=== PATIENT | female | born 1970 | race Two or more races ===

== ENCOUNTER 2024-01-05 10:05 | Outpatient (POV) | payer MEDICAID, SELFPAY ==
[2024-01-05 10:30] VITALS: BP 155/94; PULSE 64; RESP 18; O2SAT 100; BMI 20.2
--- NOTE | 2024-01-05 13:14 | EXP.PAIN.OV ---
HPI Data of Consult Patient: new to practice Consult date: 01/05/24 Requesting Physician: Michelle Armas APRN Primary Care Provider: Referral Provider, MD Consult Narrative Reason for consult: Low back pain, bilateral hip pain, abdominal pain History of present illness: Ms. Ortiz is a 53 year old female who presents today as a new patient. She is a referral from Dr. Tripp Núñez's office. Today she rates her pain a 5 out of 10. Patient states she does have pain throughout her body however does states she has a lot of low back and hip pain as well as abdominal pain. Patient states that earlier this year around June she was diagnosed with cancer. Patient states that it is blood cancer and that it has progressed since. Patient states ultimately that she initially noticed that she was having more and more abdominal swelling and then ended up going to the doctor to see that her spleen was also enlarged and they diagnosed her with leukemia. Patient did live in [place] and they had been giving her oxycodone 5 mg daily and it would help some. Patient does state that her pain is a throbbing intermittent sensation that does interfere with her ability perform activities of daily living such as cooking and cleaning. Patient does state that it also affects her appetite due to the pain. Patient does state that she is interested in any options we can provide. Patient states that although she does not have a drug history she feels like she has addictive tendencies and is trying to avoid any type of addiction whether to opioid medications or any other medications or interventions. Patient states that a lot of her issues is also that the pain medications seem to really interact with her leukemia medication and feels like this aggravates her pain symptoms. Patient has tried and failed oral medications, heat and ice and topicals. Her Sharif has been reviewed and is appropriate. CC: Michelle Armas APRN [facility] Disclaimer: The information contained in this section may have been updated after the patient was seen, as this information can be updated by other users. Medical History (Updated 01/05/24 @ 13:18 by Michelle Armas APRN) Anxiety Chronic pain Heartburn Chronic myeloid leukemia Surgical History History of skin graft History of tubal ligation Social History (Updated 01/05/24 @ 10:30 by Candie Mariza Nilo, RN) Smoking Status: Heavy tobacco smoker years smoked: 48 quit status: considering quitting alcohol intake: never counseling given: No substance use type: denies use current occupational status: other Travel in the last 8 weeks: None Review of Systems Review of Systems Review of systems:: pertinent systems reviewed and negative unless documented below Review of systems (narrative): Review of Systems: General: No recent weight changes, no fever, no sleep disturbances Respiratory: No cough, no shortness of air, no recurring pulmonary infections Cardiovascular/peripheral vascular: No chest pain, no palpitations, no edema, no shortness of breath Gastrointestinal: No new onset incontinence, normal bowel movements reported Genitourinary: No new onset incontinence Musculoskeletal: Low back pain, hip pain, abdominal pain, generalized pain Psychiatric: [Normal mood/affect] Neurological: [Denies weakness in extremities], [denies balance issues] Meds Home Medications and Allergies Home Medications ?Medication ?Instructions ?Recorded ?Confirmed ?Type bupropion HCl 75 mg tablet 75 mg PO TID 11/22/23 01/05/24 History citalopram 20 mg tablet 20 mg PO DAILY 11/22/23 01/05/24 History famotidine 10 mg tablet 10 mg PO BID 11/22/23 01/05/24 History hydrocortisone 1 % topical cream 1 applic topical TID PRN eyes 11/22/23 01/05/24 History nilotinib 150 mg capsule (Tasigna) 300 mg PO Q12H 11/22/23 01/05/24 History ondansetron HCl 4 mg tablet 4 mg PO BID 11/22/23 01/05/24 History propylene glycol 1 %-glycerin 0.3 1 drp ophthalmic (eye) BID PRN eyes 11/22/23 01/05/24 History % eye drops (Artificial Tears (glycerin-peg)) nicotine 21 mg/24 hr daily 1 patch transdermal DAILY #28 ea 12/29/23 01/05/24 Rx transdermal patch New Prescriptions to Start Prescriptions: Allergies Allergy/AdvReac Type Severity Reaction Status Date / Time No Known Allergies Allergy Verified 11/22/23 11:11 Objective Vital signs: Pulse Resp BP Pulse Ox O2 Del Method 64 18 155/94 H 100 Room Air 01/05/24 10:30 01/05/24 10:30 01/05/24 10:30 01/05/24 10:30 01/05/24 10:30 Narrative: Physical Exam: General: Alert and oriented x3, no acute distress, pleasant and cooperative Lungs: Respirations even and unlabored, symmetrical chest expansion Eyes: PERRL Musculoskeletal: Flexion and extension of lumbar [spine] somewhat guarded secondary to pain, [antalgic gait noted] point tenderness along bilateral SIs with positive bilateral Kely's, Jose's, Gaenslen's, compression and distraction exam Neurological: Speech clear, no gross sensory deficit Assessment and Plan *Assessment and plan (1) Bilateral sacroiliitis: Status: Acute Category: Medical Code(s): M46.1 - Sacroiliitis, not elsewhere classified (2) Low back pain: Status: Acute Category: Medical Code(s): M54.50 - Low back pain, unspecified (3) Abdominal pain: Status: Acute Category: Medical Code(s): R10.9 - Unspecified abdominal pain (4) Chronic myeloid leukemia: Status: Acute Category: Medical Code(s): C92.10 - Chronic myeloid leukemia, BCR/ABL-positive, not having achieved remission Plan Patient did have limited range of motion of her lumbar spine with point tenderness across her bilateral SIs and positive bilateral Kely's, Jose's, Gaenslen's, compression and distraction exam. I did discuss with the patient that I do believe she would benefit from bilateral SI injections. Risk and benefits were discussed with patient and she would like to proceed forward with this plan of care. Patient has tried and failed conservative therapy including continued at home stretching exercise for longer than 12 weeks. I did also discuss at length with the patient that we can start her out on some oral pain medications. Patient did state prior to the oxycodone that she had not been tried on any other medications including [place] or Percocet. I did discuss with the patient that we will try [place] 5 mg twice a day and see how she does with this medication initially. Patient was also counseled that she may be a beneficial candidate of a intrathecal pain pump trial in the future. Risk and benefits and educational handouts were given during today's visit. We will follow-up with this at future visits. Patient will be scheduled for bilateral SI injections under fluoroscopy. Risks and benefits of the medication have been explained in detail to the patient. The patient does understand the risk of dependence on the medication when given over a prolonged period. Patient has been advised of risks of oversedation with the prescribed medication. Narcan has been offered to the paitent in the event of oversedation. Patient has been advised that a family member should also be educated regarding administration of Narcan. The patient has been advised to consult with his/her primary care provider and pharmacist regarding drug-drug interaction of medications currently prescribed. Patient has been prescribed a controlled substance after being counseled on the medication, medication safety, and possible side effects. Opioid contract was reviewed and signed by the patient, and that they have agreed to all of the terms set forth by our compliance program. Patient has been instructed to contact the clinic with any concerns before the next appointment. Dr. Ortega has reviewed this note and agrees with this plan of care. This note was dictated using voice recognition software and make contain errors or omissions. All injections are used with Lidocaine or Bupivacaine and Depo Medrol.
== END 2024-01-05 23:59 | disposition home or self-care (01) ==
PROVIDERS: Visit Provider Nurse Practitioner Family
DX: M46.1 Sacroiliitis, not elsewhere classified (principal); M54.50 Low back pain, unspecified; R10.9 Unspecified abdominal pain; C92.10 Chronic myeloid leukemia, BCR/ABL-positive, not having achieved remission; Z73.89 Other problems related to life management difficulty
CPT/HCPCS: 99202; G0463

== ENCOUNTER 2024-01-13 15:04 | Outpatient (CLI) | payer MEDICAID, SELFPAY ==
[2024-01-13 15:56] LABS: Basophils # 0.1 K/mm3 (0-0.2); Basophils % 1.2 % (0.1-2.0); Eosinophils # 0.1 K/mm3 (0.0-0.4); Eosinophils % 2.1 % (0.1-12.0); Hematocrit 43.3 % (37.0-47.0); Hemoglobin 14.7 g/dL (12.2-16.2); Lymphocytes # 2.1 K/mm3 (0.7-4.5); Lymphocytes % 36.3 % (10-50); Mean Corpuscular HGB Conc 34.1 g/dL (31.8-35.4); Mean Corpuscular Hemoglobin 28.3 pg (27.0-31.2); Mean Platelet Volume 9.3 fl (7.4-10.4); Monocytes # 0.2 K/mm3 (0.1-1.0); Monocytes % 3.7 % (1.7-9.3); Neutrophils # 3.2 K/mm3 (1.8-7.8); Neutrophils % 56.7 % (37.0-80.0); Platelet Count 133 K/mm3 (142-424); Red Blood Count 5.21 M/mm3 (4.20-5.40); Red Cell Distribution Width 16.3 % (11.5-17.5); White Blood Count 5.7 K/mm3 (4.8-10.8)
[2024-01-13 16:06] LABS: Alanine Aminotransferase 36 U/L (12-78); Alkaline Phosphatase 90 U/L (38-126); Aspartate Amino Transferase 31 U/L (14-36); Bilirubin,Total 1.1 mg/dl (0.2-1.3); Blood Urea Nitrogen 13 mg/dl (7-17); Calcium 9.2 mg/dl (8.4-10.2); Chloride 110 mmol/L (98-107); Estimated Glomerular Filt Rate 76 ml/min (>60); GFR (African American) 92 ML/MIN (>60); Glucose 107 mg/dl (74-100); Potassium 3.5 mmoL/L (3.5-5.1); Sodium 141 mmol/L (136-145); Total Protein,Serum 6.9 g/dl (6.3-8.2)
[2024-01-13 16:07] LABS: Albumin Level 4.4 g/dl (3.5-5.0); Albumin/Globulin Ratio 1.8 (1.1-1.8); Anion Gap 10.5 mEq/L (5-15); Carbon Dioxide 24 mmol/L (22.0-30.0); Globulin 2.5 g/dL (1.3-3.2)
[2024-01-21 16:09] LABS: Interpretation: Positive (.); e13a2 (b2a2) transcript 22.4808 % (.); e1a2 transcript <0.0032 % % (.)
[2024-02-15 15:37] LABS: PDF: SCANNED IMAGE
== END 2024-01-13 23:59 | disposition home or self-care (01) ==
LOC: LAB 15:07
PROVIDERS: PCP Family Medicine; Visit Provider Internal Medicine Medical Oncology
DX: C92.10 Chronic myeloid leukemia, BCR/ABL-positive, not having achieved remission (principal)
CPT/HCPCS: 36415; 80053; 81206; 85025

== ENCOUNTER 2024-02-06 12:18 | Outpatient (CLI) | payer MEDICAID, SELFPAY ==
[2024-02-16 13:42] LABS: Miscellaneous Test SCANNED IMAGE
== END 2024-02-06 23:59 | disposition home or self-care (01) ==
LOC: LAB 12:19
PROVIDERS: PCP Family Medicine; Visit Provider Internal Medicine Medical Oncology
DX: C92.10 Chronic myeloid leukemia, BCR/ABL-positive, not having achieved remission (principal)
CPT/HCPCS: 36415

== ENCOUNTER 2024-02-13 07:26 | Outpatient (CLI) | payer MEDICAID, SELFPAY ==
[2024-02-13] VITALS (13 sets, daily range): BP systolic 119–139; BP diastolic 62–92; PULSE 59–83; RESP 18; TEMP 36.6; O2SAT 95–100; BMI 20.9
--- NOTE | 2024-02-13 07:27 | CT_ITS ---
FINAL REPORT CLINICAL HISTORY: BONE MARROW BX MEDS: 3 VERSED AND 50 FENTANYL FINDINGS: CT GUIDED BONE MARROW ASPIRATION AND CORE BIOPSY. HISTORY: Chronic myelogenous leukemia ATTENDING PHYSICIAN: Dr. Lyons PHYSICIAN ALUMINUM MOLDING MACHINE OPERATOR: Skyler Hogue PA-C PROCEDURE: After informed consent was obtained and a timeout was performed, the patient was prepped and draped in usual sterile fashion over the left pelvis. Utilizing local anesthesia and sterile technique with a coaxial drill system, access to left iliac bone was obtained under direct CT guidance. Aspirate was obtained. In addition, a large core of marrow was obtained. The patient received moderate procedural sedation. The patient tolerated the procedure well and left the department in good condition. PROCEDURAL SEDATION: 3 mg of IV Versed and 50 mcg of Fentanyl were administered. Continuous vital sign monitoring was used. An RN was present during the sedation process. Overall sedation time was 15 minutes. IMPRESSION: Status post CT guided bone marrow aspiration and core biopsy as above. Films reviewed , interpreted and dictated by Dr. Lyons. Transcribed by Skyler Hogue PA-C. Reviewed, Interpreted and Dictated by Power Lyons III, MD Transcribed by SALVADOR Magaña Authenticated and [facility]
[2024-02-13 08:08] LABS: Basophils # 0.1 K/mm3 (0-0.2); Basophils % 1.8 % (0.1-2.0); Eosinophils # 0.1 K/mm3 (0.0-0.4); Eosinophils % 2.4 % (0.1-12.0); Hematocrit 44.8 % (37.0-47.0); Hemoglobin 15.3 g/dL (12.2-16.2); Lymphocytes # 1.6 K/mm3 (0.7-4.5); Lymphocytes % 38.2 % (10-50); Mean Corpuscular HGB Conc 34.1 g/dL (31.8-35.4); Mean Corpuscular Hemoglobin 28.1 pg (27.0-31.2); Mean Corpuscular Volume 82.5 fl (81-99); Mean Platelet Volume 8.9 fl (7.4-10.4); Monocytes # 0.1 K/mm3 (0.1-1.0); Monocytes % 2.1 % (1.7-9.3); Neutrophils # 2.4 K/mm3 (1.8-7.8); Neutrophils % 55.6 % (37.0-80.0); Platelet Count 122 K/mm3 (142-424); Red Blood Count 5.42 M/mm3 (4.20-5.40); Red Cell Distribution Width 16.9 % (11.5-17.5); White Blood Count 4.3 K/mm3 (4.8-10.8)
[2024-02-13] MEDS: LACTATED RINGERS 1000ML 1,000 ML 25 ML IV (08:20)
[2024-02-13 08:33] LABS: Activated Partial Thrombo Time 27.5 seconds (22.8-30.6); INR 0.87 (0.9-1.1); Prothrombin Time 9.9 seconds (10.1-12.5)
[2024-02-13] MEDS: HEPARIN SODIUM 5,000 UNIT/ML VIAL 5000 UNIT (09:15)
[2024-02-13] MEDS: LIDOCAINE 1% 20ML MDV 20 ML (09:15)
== END 2024-02-13 23:59 | disposition home or self-care (01) ==
LOC: RAD 07:27
PROVIDERS: PCP Family Medicine; Visit Provider Internal Medicine Medical Oncology
DX: C92.10 Chronic myeloid leukemia, BCR/ABL-positive, not having achieved remission (principal)
CPT/HCPCS: 38221; 77012; 85025; 85610; 85730; J1644; J2250; J3010; J7120

== ENCOUNTER 2024-05-21 14:14 | Outpatient (CLI) | payer MEDICAID, SELFPAY ==
[2024-05-21 14:47] LABS: Basophils % 0.2 % (0.1-2.0); Eosinophils # 0.1 K/mm3 (0.0-0.4); Eosinophils % 1.5 % (0.1-12.0); Hematocrit 42.7 % (37.0-47.0); Hemoglobin 14.3 g/dL (12.2-16.2); Lymphocytes # 1.9 K/mm3 (0.7-4.5); Lymphocytes % 45.5 % (10-50); Mean Corpuscular HGB Conc 33.5 g/dL (31.8-35.4); Mean Corpuscular Hemoglobin 28.8 pg (27.0-31.2); Mean Corpuscular Volume 86.1 fl (81-99); Mean Platelet Volume 10.2 fl (7.4-10.4); Monocytes # 0.1 K/mm3 (0.1-1.0); Monocytes % 1.5 % (1.7-9.3); Neutrophils # 2.1 K/mm3 (1.8-7.8); Neutrophils % 51.3 % (37.0-80.0); Platelet Count 114 K/mm3 (142-424); Red Blood Count 4.96 M/mm3 (4.20-5.40); Red Cell Distribution Width 15.4 % (11.5-17.5); White Blood Count 4.1 K/mm3 (4.8-10.8)
== END 2024-05-21 23:59 | disposition home or self-care (01) ==
LOC: LAB 14:16
PROVIDERS: PCP Family Medicine; Visit Provider Internal Medicine Medical Oncology
DX: C92.10 Chronic myeloid leukemia, BCR/ABL-positive, not having achieved remission (principal)
CPT/HCPCS: 36415; 85025

== ENCOUNTER 2024-06-04 14:28 | Outpatient (CLI) | payer MEDICAID, SELFPAY ==
[2024-06-04 14:57] LABS: Basophils % 0.3 % (0.1-2.0); Eosinophils # 0.1 K/mm3 (0.0-0.4); Eosinophils % 1.8 % (0.1-12.0); Hematocrit 41.8 % (37.0-47.0); Hemoglobin 14.1 g/dL (12.2-16.2); Lymphocytes % 60.1 % (10-50); Mean Corpuscular HGB Conc 33.7 g/dL (31.8-35.4); Mean Corpuscular Hemoglobin 29.3 pg (27.0-31.2); Mean Corpuscular Volume 86.7 fl (81-99); Mean Platelet Volume 10.7 fl (7.4-10.4); Monocytes # 0.1 K/mm3 (0.1-1.0); Monocytes % 1.5 % (1.7-9.3); Neutrophils # 1.2 K/mm3 (1.8-7.8); Neutrophils % 36.3 % (37.0-80.0); Platelet Count 81 K/mm3 (142-424); Red Blood Count 4.82 M/mm3 (4.20-5.40); Red Cell Distribution Width 15.3 % (11.5-17.5); White Blood Count 3.3 K/mm3 (4.8-10.8)
[2024-06-04 15:03] LABS: MANUAL DIFFERENTIAL MANUAL DIFFERENTIAL (MANUAL DIFF)
[2024-06-04 15:22] LABS: Lymphocytes % 69 % (10-50); Neutrophils % 31 % (42-76); Total Cells Counted 100
[2024-06-04 15:25] LABS: Platelet Estimate Moderate Decrease; RBC Morphology Normal
== END 2024-06-04 23:59 | disposition home or self-care (01) ==
LOC: LAB 14:30
PROVIDERS: PCP Family Medicine; Visit Provider Internal Medicine Medical Oncology
DX: C92.10 Chronic myeloid leukemia, BCR/ABL-positive, not having achieved remission (principal)
CPT/HCPCS: 36415; 85007; 85025; 85027

== ENCOUNTER 2024-06-18 14:34 | Outpatient (CLI) | payer MEDICAID, SELFPAY ==
[2024-06-18 15:26] LABS: Basophils % 0.4 % (0.1-2.0); Eosinophils % 1.2 % (0.1-12.0); Hematocrit 37.7 % (37.0-47.0); Hemoglobin 12.7 g/dL (12.2-16.2); Lymphocytes # 1.7 K/mm3 (0.7-4.5); Lymphocytes % 66.7 % (10-50); Mean Corpuscular HGB Conc 33.7 g/dL (31.8-35.4); Mean Corpuscular Hemoglobin 29.1 pg (27.0-31.2); Mean Corpuscular Volume 86.3 fl (81-99); Mean Platelet Volume 11.3 fl (7.4-10.4); Monocytes # 0.1 K/mm3 (0.1-1.0); Monocytes % 2.4 % (1.7-9.3); Neutrophils # 0.7 K/mm3 (1.8-7.8); Neutrophils % 29.3 % (37.0-80.0); Platelet Count 76 K/mm3 (142-424); Red Blood Count 4.37 M/mm3 (4.20-5.40); Red Cell Distribution Width 15.8 % (11.5-17.5); White Blood Count 2.5 K/mm3 (4.8-10.8)
[2024-06-18 15:31] LABS: MANUAL DIFFERENTIAL MANUAL DIFFERENTIAL (MANUAL DIFF)
[2024-06-18 16:12] LABS: Lymphocytes % 83 % (10-50); Monocytes % 2 % (2-9); Neutrophils % 15 % (42-76); Total Cells Counted 100
[2024-06-18 16:14] LABS: RBC Morphology Normal
[2024-06-18 16:17] LABS: Platelet Estimate Moderate Decrease
== END 2024-06-18 23:59 | disposition home or self-care (01) ==
LOC: LAB 14:37
PROVIDERS: PCP Family Medicine; Visit Provider Internal Medicine Medical Oncology
DX: C92.10 Chronic myeloid leukemia, BCR/ABL-positive, not having achieved remission (principal)
CPT/HCPCS: 36415; 85007; 85025; 85027

== ENCOUNTER 2024-06-26 14:48 | Outpatient (CLI) | payer MEDICAID, SELFPAY ==
[2024-06-26 15:32] LABS: Basophils % 0.4 % (0.1-2.0); Eosinophils % 1.5 % (0.1-12.0); Hematocrit 42.9 % (37.0-47.0); Hemoglobin 14.5 g/dL (12.2-16.2); Lymphocytes # 1.7 K/mm3 (0.7-4.5); Lymphocytes % 63.7 % (10-50); Mean Corpuscular HGB Conc 33.8 g/dL (31.8-35.4); Mean Corpuscular Volume 88.6 fl (81-99); Mean Platelet Volume 10.2 fl (7.4-10.4); Monocytes # 0.1 K/mm3 (0.1-1.0); Monocytes % 1.9 % (1.7-9.3); Neutrophils # 0.9 K/mm3 (1.8-7.8); Neutrophils % 32.5 % (37.0-80.0); Platelet Count 72 K/mm3 (142-424); Red Blood Count 4.84 M/mm3 (4.20-5.40); Red Cell Distribution Width 16.5 % (11.5-17.5); White Blood Count 2.6 K/mm3 (4.8-10.8)
[2024-06-26 15:35] LABS: MANUAL DIFFERENTIAL MANUAL DIFFERENTIAL (MANUAL DIFF)
[2024-06-26 16:50] LABS: Eosinophils % 1 % (0-3); Lymphocytes % 75 % (10-50); Monocytes % 2 % (2-9); Neutrophils % 22 % (42-76); Total Cells Counted 100
[2024-06-26 16:53] LABS: Platelet Estimate Marked Decrease; RBC Morphology Normal
== END 2024-06-26 23:59 | disposition home or self-care (01) ==
LOC: LAB 14:49
PROVIDERS: PCP Family Medicine; Visit Provider Internal Medicine Medical Oncology
DX: C92.10 Chronic myeloid leukemia, BCR/ABL-positive, not having achieved remission (principal)
CPT/HCPCS: 36415; 85007; 85025; 85027

== ENCOUNTER 2024-07-02 14:53 | Outpatient (CLI) | payer MEDICAID, SELFPAY ==
[2024-07-02 15:15] LABS: Basophils % 0.7 % (0.1-2.0); Eosinophils % 0.7 % (0.1-12.0); Hematocrit 40.8 % (37.0-47.0); Hemoglobin 14.1 g/dL (12.2-16.2); Lymphocytes # 1.7 K/mm3 (0.7-4.5); Lymphocytes % 62.6 % (10-50); Mean Corpuscular HGB Conc 34.6 g/dL (31.8-35.4); Mean Corpuscular Hemoglobin 30.3 pg (27.0-31.2); Mean Corpuscular Volume 87.7 fl (81-99); Mean Platelet Volume 10.2 fl (7.4-10.4); Monocytes # 0.1 K/mm3 (0.1-1.0); Monocytes % 2.6 % (1.7-9.3); Neutrophils # 0.9 K/mm3 (1.8-7.8); Platelet Count 116 K/mm3 (142-424); Red Blood Count 4.65 M/mm3 (4.20-5.40); Red Cell Distribution Width 16.6 % (11.5-17.5); White Blood Count 2.7 K/mm3 (4.8-10.8)
[2024-07-02 15:22] LABS: MANUAL DIFFERENTIAL MANUAL DIFFERENTIAL (MANUAL DIFF)
[2024-07-02 16:31] LABS: Lymphocytes % 64 % (10-50); Monocytes % 1 % (2-9); Neutrophils % 34 % (42-76); Total Cells Counted 100
[2024-07-02 16:32] LABS: RBC Morphology Normal
[2024-07-02 16:33] LABS: Platelet Estimate Slight Decrease
[2024-07-02 16:34] LABS: Anisocytosis 1+
[2024-07-04 14:56] LABS: Peripheral Smear Review Scanned Result
== END 2024-07-02 23:59 | disposition home or self-care (01) ==
LOC: LAB 14:54
PROVIDERS: PCP Family Medicine; Visit Provider Internal Medicine Medical Oncology
DX: C92.10 Chronic myeloid leukemia, BCR/ABL-positive, not having achieved remission (principal)
CPT/HCPCS: 36415; 85007; 85025; 85027

== ENCOUNTER 2024-07-09 14:40 | Outpatient (CLI) | payer MEDICAID, SELFPAY ==
[2024-07-09 15:48] LABS: Basophils % 1.1 % (0.1-2.0); Eosinophils % 0.7 % (0.1-12.0); Hematocrit 40.6 % (37.0-47.0); Hemoglobin 13.9 g/dL (12.2-16.2); Lymphocytes # 1.5 K/mm3 (0.7-4.5); Lymphocytes % 54.6 % (10-50); Mean Corpuscular HGB Conc 34.2 g/dL (31.8-35.4); Mean Corpuscular Hemoglobin 30.2 pg (27.0-31.2); Mean Corpuscular Volume 88.1 fl (81-99); Mean Platelet Volume 9.6 fl (7.4-10.4); Monocytes # 0.1 K/mm3 (0.1-1.0); Monocytes % 1.8 % (1.7-9.3); Neutrophils # 1.1 K/mm3 (1.8-7.8); Neutrophils % 41.4 % (37.0-80.0); Platelet Count 134 K/mm3 (142-424); Red Blood Count 4.61 M/mm3 (4.20-5.40); Red Cell Distribution Width 16.8 % (11.5-17.5); White Blood Count 2.7 K/mm3 (4.8-10.8)
[2024-07-09 15:50] LABS: MANUAL DIFFERENTIAL MANUAL DIFFERENTIAL (MANUAL DIFF)
[2024-07-09 17:06] LABS: Lymphocytes % 59 % (10-50); Monocytes % 1 % (2-9); Neutrophils % 38 % (42-76); Ovalocytes 1+; Platelet Estimate Normal; Poikilocytosis 1+; Polychromasia 1+; Tear Drop Cells 1+; Total Cells Counted 100
[2024-07-09 17:07] LABS: Target Cells 1+
== END 2024-07-09 23:59 | disposition home or self-care (01) ==
LOC: LAB 14:40
PROVIDERS: PCP Family Medicine; Visit Provider Internal Medicine Medical Oncology
DX: C92.10 Chronic myeloid leukemia, BCR/ABL-positive, not having achieved remission (principal)
CPT/HCPCS: 36415; 85007; 85025; 85027

== ENCOUNTER 2024-07-17 16:03 | Outpatient (CLI) | payer MEDICAID, SELFPAY ==
[2024-07-17 16:40] LABS: Basophils % 1.5 % (0.1-2.0); Eosinophils % 0.8 % (0.1-12.0); Hematocrit 37.9 % (37.0-47.0); Hemoglobin 12.6 g/dL (12.2-16.2); Lymphocytes # 1.3 K/mm3 (0.7-4.5); Lymphocytes % 49.2 % (10-50); Mean Corpuscular HGB Conc 33.2 g/dL (31.8-35.4); Mean Corpuscular Hemoglobin 29.7 pg (27.0-31.2); Mean Corpuscular Volume 89.4 fl (81-99); Mean Platelet Volume 10.5 fl (7.4-10.4); Monocytes # 0.1 K/mm3 (0.1-1.0); Monocytes % 2.7 % (1.7-9.3); Neutrophils # 1.2 K/mm3 (1.8-7.8); Neutrophils % 45.4 % (37.0-80.0); Nucleated Red Blood Cells # 0 10^3/uL; Nucleated Red Blood Cells % 0 %; Platelet Count 124 K/mm3 (142-424); Red Blood Count 4.24 M/mm3 (4.20-5.40); Red Cell Distribution Width 16.3 % (11.5-17.5); Red Cell Distribution Width-SD 53.6 fL; White Blood Count 2.6 K/mm3 (4.8-10.8)
--- OUTSIDE RECORDS SUMMARY | 2024-07-18 22:30 | XMS_ITS | Continuity of Care Document ---
Author Organization [facility] Phone Care Team Providers Care Tearoom Host/Hostess Name Role Phone MIGUELANGEL PERALTA V Primary Attending Unavailable TIESHA MORA Primary Care Unavailable TIESHA MORA Unavailable Unavailable MIGUELANGEL PERALTA V Admitting Unavailable ALLERGIES AND ADVERSE REACTIONS ALLERGIES AND ADVERSE REACTIONS Code System Allergy Substance Adverse Reaction Date Reaction (Severity) Comment Status Reported By Updated By No Known Allergies [email or web address] on April 04, 2024 10:21:52 PM UT RESULTS Patient: JUANA LEE Date of : [birth year] 8 LABORATORY RESULTS ORDER 100: RESPIRATORY PANEL RP (LOINC: 79350-4) ORDER DATE: April 04, 2024 10:34:00 PM UTC Specimen Source: DRAFTING TECHNICIAN SWAB Specimen Type: Nasopharyngea l airway insertion PERFORMING LAB: [address] [id number] Result Comment: Final Result Date: April 05, 2024 12:12:00 AM UTC (TECH: RR) LOINC TEST [place] [address]-0 Adenovirus DNA [Presence] in Nasopharynx by Target amplification with non-probe based detection N NOT DETECTED NOT DETECTED April 05, 2024 12:12:00 AM UTC (TECH: RR) 64143-9 Bordetella parapertussis [id number] DNA [Presence] in Nasopharynx by ROLA with non-probe detection N NOT DETECTED NOT DETECTED April 05, 2024 12:12:00 AM UTC (TECH: RR) 29589-1 Human coronavirus 229E RNA [Presence] in Nasopharynx by Target amplification with non-probe based detection N NOT DETECTED NOT DETECTED April 05, 2024 12:12:00 AM UTC (TECH: RR) 23679-8 Human coronavirus HKU1 RNA [Presence] in Nasopharynx by Target amplification with non-probe based detection N NOT DETECTED NOT DETECTED April 05, 2024 12:12:00 AM UTC (TECH: RR) 30578-5 Human coronavirus NL63 RNA [Presence] in Nasopharynx by Target amplification with non-probe based detection N NOT DETECTED NOT DETECTED April 05, 2024 12:12:00 AM UTC (TECH: RR) 02478-8 Human coronavirus OC43 RNA [Presence] in Nasopharynx by Target amplification with non-probe based detection N NOT DETECTED NOT DETECTED April 05, 2024 12:12:00 AM UTC (TECH: RR) 53427-4 Human metapneumoviru s RNA [Presence] in Nasopharynx by Target amplification with non-probe based detection N NOT DETECTED NOT DETECTED April 05, 2024 12:12:00 AM UTC (TECH: RR) 39047-4 Rhinovirus+Enterovir u s RNA [Presence] in Nasopharynx by Target amplification with non-probe based detection N NOT DETECTED NOT DETECTED April 05, 2024 12:12:00 AM UTC (TECH: RR) 97831-4 Influenza virus A RN A [Presence] in Nasopharynx by Target amplification with non-probe based detection N NOT DETECTED NOT DETECTED April 05, 2024 12:12:00 AM UTC (TECH: RR) 80890-5 Influenza virus A H1 RNA [Presence] in Nasopharynx by Target amplification with non-probe based detection N N/A NOT DETECTED April 05, 2024 12:12:00 AM UTC (TECH: RR) 86008-0 Influenza virus A H1 2009 pandemic RNA [Presence] in Nasopharynx by Target amplification with non-probe based detection N N/A NOT DETECTED April 05, 2024 12:12:00 AM UTC (TECH: RR) 56120-5 Influenza virus A H3 RNA [Presence] in Nasopharynx by Target amplification with non-probe based detection N N/A NOT DETECTED April 05, 2024 12:12:00 AM UTC (TECH: RR) 47421-1 Influenza virus B RN A [Presence] in Nasopharynx by Target amplification with non-probe based detection N NOT DETECTED NOT DETECTED April 05, 2024 12:12:00 AM UTC (TECH: RR) 95731-3 Parainfluenza virus 1 RNA [Presence] in Nasopharynx by Target amplification with non-probe based detection N NOT DETECTED NOT DETECTED April 05, 2024 12:12:00 AM UTC (TECH: RR) 21310-6 Parainfluenza virus 2 RNA [Presence] in Nasopharynx by Target amplification with non-probe based detection N NOT DETECTED NOT DETECTED April 05, 2024 12:12:00 AM UTC (TECH: RR) 92167-2 Parainfluenza virus 3 RNA [Presence] in Nasopharynx by Target amplification with non-probe based detection N NOT DETECTED NOT DETECTED April 05, 2024 12:12:00 AM UTC (TECH: RR) 84660-4 Parainfluenza virus 4 RNA [Presence] in Nasopharynx by Target amplification with non-probe based detection N NOT DETECTED NOT DETECTED April 05, 2024 12:12:00 AM UTC (TECH: RR) 23962-6 Respiratory syncytia l virus RNA [Presence] in Nasopharynx by Target amplification with non-probe based detection N NOT DETECTED NOT DETECTED April 05, 2024 12:12:00 AM UTC (TECH: RR) 39765-7 Bordetella pertussis toxin promoter region [Presence] in Nasopharynx by Target amplification with non-probe based detection N NOT DETECTED NOT DETECTED April 05, 2024 12:12:00 AM UTC (TECH: RR) 72871-3 Chlamydophila pneumoniae DNA [Presence] in Nasopharynx by Target amplification with non-probe based detection N NOT DETECTED NOT DETECTED April 05, 2024 12:12:00 AM UTC (TECH: RR) 79303-8 Mycoplasma pneumonia e DNA [Presence] in Nasopharynx by Target amplification with non-probe based detection N NOT DETECTED NOT DETECTED April 05, 2024 12:12:00 AM UTC (TECH: RR) 43135-5 SARS-CoV-2 (COVID-19 ) RNA [Presence] in Nasopharynx by ROLA with non-probe detection DETECTED NOT DETECTED April 05, 2024 12:12:00 AM UTC (TECH: RR) ORDER 200: CBC AUTO W DIFF ( LOINC: 75251-5) ORDER DATE: April 04, 2024 10:47:00 PM UTC Specimen Source: EDTA Specimen Type: Blood specime n with EDTA PERFORMING LAB: [address] [id number] Result Comment: Final Result Date: April 04, 2024 11:22:00 PM UTC (TECH: AY) LOINC TEST FLAG RESULT REFERENCE RANGE UPDA AWILDA BY 6690-2 Leukocytes [#/volume] in Blood by Automated count N 4.9 K/ul 4.0 K/ul - 10.5 K/ul April 04, 2024 11:22:00 PM UTC (TECH: AY) 789-8 Erythrocytes [#/volume] in Blood by Automated count N 5.2 M/mm3 4.2 M/mm3 - 6.4 M/mm3 April 04, 2024 11:22:00 PM UTC (TECH: AY) 718-7 Hemoglobin [Mass/volume] in Blood N 14.5 gm/dl 12.5 gm/dl - 16.0 gm/dl April 04, 2024 11:22:00 PM UTC (TECH: AY) 29543-0 Hematocrit [Volume Fraction] of Blood N 43.6 % 37.0 % - 47.0 % April 04, 2024 11:22:00 PM UTC (TECH: AY) 787-2 Erythrocyte mean corpuscular volume [Entitic volume] by Automated count N 83.7 fl 78 fl - 100 fl April 04, 2024 11:22:00 PM UTC (TECH: AY) 785-6 Erythrocyte mean corpuscular hemoglobin [Entitic mass] by Automated count N 27.8 pg 27 pg - 31 pg April 04, 2024 11:22:00 PM UT (TECH: AY) 786-4 Erythrocyte mean corpuscular hemoglobin concentration [Mass/volume] by Automated count N 33.3 g/dl 32 g/dl - 36 g/dl April 04, 2024 11:22:00 PM UTC (TECH: AY) 25130-0 Erythrocyte distribution width [Ratio] H 16.1 % 11.5 % - 14.0 % April 04, 2024 11:22:00 PM UTC (TECH: AY) 777-3 Platelets [#/volume] in Blood by Automated count N 157 K/ul 150 K/ul - 450 K/ul April 04, 2024 11:22:00 PM UT (TECH: AY) 32916-2 Platelet mean volume [Entitic volume] in Blood by Automated count H 10.7 fl 6 fl - 9.5 fl April 04, 2024 11:22:00 PM UTC (TECH: AY) 50132-7 Neutrophils/100 leukocytes in Blood H 74.4 % 43 % - 65 % April 04, 2024 11:22:00 PM UTC (TECH: AY) 736-9 Lymphocytes/100 leukocytes in Blood by Automated count N 20.8 % 20.5 % - 45.5 % April 04, 2024 11:22:00 PM UTC (TECH: AY) 5905-5 Monocytes/100 leukocytes in Blood by Automated count L 1.8 % 5.5 % - 11.7 % April 04, 2024 11:22:00 PM UTC (TECH: AY) 713-8 Eosinophils/100 leukocytes in Blood by Automated count N 1.8 % 0.9 % - 2.9 % April 04, 2024 11:22:00 PM UTC (TECH: AY) 706-2 Basophils/100 leukocytes in Blood by Automated count N 1.0 % 0.2 % - 1.0 % April 04, 2024 11:22:00 PM UTC (TECH: AY) 90122-9 Immature granulocytes/100 leukocytes in Blood by Automated count N 0.2 % 0.0 % - 0.8 % April 04, 2024 11:22:00 PM UTC (TECH: AY) 42499-6 Nucleated cells [#/volume] in Blood N 0.0 % April 04, 2024 11:22:00 PM UTC (TECH: AY) 18078-1 Neutrophils [#/volume] in Blood N 3.6 K/uL 2.2 K/uL - 4.8 K/uL April 04, 2024 11:22:00 PM UTC (TECH: AY) 731-0 Lymphocytes [#/volume] in Blood by Automated count L 1.0 CELL/MCL 1.3 CELL/MCL - 2.9 CELL/MCL April 04, 2024 11:22:00 PM UTC (TECH: AY) 742-7 Monocytes [#/volume] in Blood by Automated count L 0.1 CELL/MCL 0.3 CELL/MCL - 0.8 CELL/MCL April 04, 2024 11:22:00 PM UTC (TECH: AY) 711-2 Eosinophils [#/volume] in Blood by Automated count N 0.1 CELL/MCL 0 CELL/MCL - 0.2 CELL/MCL April 04, 2024 11:22:00 PM UTC (TECH: AY) 704-7 Basophils [#/volume] in Blood by Automated count N 0.1 CELL/MCL 0.0 CELL/MCL - 1.0 CELL/MCL April 04, 2024 11:22:00 PM UT (TECH: AY) 87286-0 Immature granulocytes [#/volume] in Blood N 0.01 K/ul April 04, 2024 11:22:00 PM [facility] (TECH: AY) 82443-7 Nucleated cells [#/volume] in Blood N 0.00 K/uL April 04, 2024 11:22:00 PM [facility] (TECH: AY) 44604-4 Manual Differential panel - Blood N NO April 04, 2024 11:22:00 PM [facility] (TECH: AY) ORDER 300: COMP METABOLIC PA ANA (LOINC: 42752-7) ORDER DATE: April 04, 2024 10:47:00 PM UT Specimen Source: PLASMA Specimen Type: Plasma specim en PERFORMING LAB: [address] [id number] Result Comment: Final Result Date: April 04, 2024 11:24:00 PM [facility] (TECH: RR) LOINC TEST FLAG RESULT REFERENCE RANGE UPDA AWILDA BY 2951-2 Sodium [Moles/volume ] in Serum or Plasma N 138 mmol/L 136 mmol/L - 145 mmol/L April 04, 2024 11:24:00 PM UT (TECH: RR) 2823-3 Potassium [Moles/volume] in Serum or Plasma N 4.2 mmol/L 3.6 mmol/L - 5.0 mmol/L April 04, 2024 11:24:00 PM UT (TECH: RR) 5-0 Chloride [Moles/volume] in Serum or Plasma N 101 mmol/L 98 mmol/L - 107 mmol/L April 04, 2024 11:24:00 PM UT (TECH: RR) 2027-9 Carbon dioxide, tota l [Moles/volume] in Serum or Plasma N 28.0 mmol/L 21.0 mmol/L - 32.0 mmol/L April 04, 2024 11:24:00 PM UT (TECH: RR) 67543-6 Anion gap in Blood N 13.2 D ec2023 11:24:00 PM UTC (TECH: RR) 2345-7 Glucose [Mass/volume ] in Serum or Plasma N 100 mg/dl 70 mg/dl - 120 mg/dl April 04, 2024 11:24:00 PM UTC (TECH: RR) 6299-2 Urea nitrogen [Mass/volume] in Blood N 8 mg/dL 7 mg/dL - 18 mg/dL April 04, 2024 11:24:00 PM UTC (TECH: RR) 75558-3 Creatinine [Moles/volume] in Blood N 0.7 mg/dL 0.6 mg/dL - 1.3 mg/dL April 04, 2024 11:24:00 PM UTC (TECH: RR) 83900-3 Glomerular filtratio n rate/1.73 sq M.predicted by Creatinine-based formula (MDRD) N 105 mlpermin 60 mlpermin April 04, 2024 11:24:00 PM UTC (TECH: RR) 2885-2 Protein [Mass/volume ] in Serum or Plasma N 7.7 g/dl 6.4 g/dl - 8.2 g/dl April 04, 2024 11:24:00 PM UTC (TECH: RR) 1751-7 Albumin [Mass/volume ] in Serum or Plasma N 4.0 g/dl 3.4 g/dl - 5.0 g/dl April 04, 2024 11:24:00 PM UTC (TECH: RR) 2336-6 Globulin [Mass/volum e] in Serum N 3.7 April 04, 2024 11:24:00 PM UTC (TECH: RR) 1759-0 Albumin/Globulin [Ma ss Ratio] in Serum or Plasma N 1.1 0.7 - 2 April 04, 2024 11:24:00 PM UTC (TECH: RR) 92753-1 Calcium [Mass/volume ] in Serum or Plasma N 8.9 mg/dl 8.5 mg/dl - 10.5 mg/dl April 04, 2024 11:24:00 PM UTC (TECH: RR) 1975-2 Bilirubin.total [Mass/volume] in Serum or Plasma H 1.50 mg/dL 0.10 mg/dL - 1.00 mg/dL April 04, 2024 11:24:00 PM UTC (TECH: RR) 1920-8 Aspartate aminotransferase [Enzymatic activity/volume] in Serum or Plasma N 17 U/L 0 U/L - 37 U/L April 04, 2024 11:24:00 PM UTC (TECH: RR) 1742-6 Alanine aminotransferase [Enzymatic activity/volume] in Serum or Plasma N 24 U/L 0 U/L - 65 U/L April 04, 2024 11:24:00 PM UTC (TECH: RR) 6768-6 Alkaline phosphatase [Enzymatic activity/volume] in Serum or Plasma H 119 U/L 46 U/L - 116 U/L April 04, 2024 11:24:00 PM UTC (TECH: RR) ORDER 400: LIPASE (LOINC: 30 40-3) ORDER DATE: April 04, 2024 10:47:00 PM UTC Specimen Source: PLASMA Specimen Type: Plasma specim en PERFORMING LAB: [address] [id number] Result Comment: Final Result Date: April 04, 2024 11:26:00 PM UTC (TECH: RR) LOINC TEST FLAG RESULT REFERENCE RANGE UPDA AWILDA BY 3040-3 Lipase [Enzymatic activity/volume] in Serum or Plasma N 24 U/L 16 U/L - 77 U/L April 04 11:26:00 PM UTC (TECH: RR) ORDER 500: URINALYSIS REFLEX MICROSCOPIC (LOINC: 95371-6) ORDER DATE: April 04, 2024 10:47:00 PM UTC Specimen Source: URINE Specimen Type: Urine specime n PERFORMING LAB: [address] [id number] Result Comment: Final Result Date: April 05, 2024 12:03:00 AM UT (TECH: AY) LOINC TEST FLAG RESULT REFERENCE RANGE UPDA AWILDA BY 5778-6 Color of Urine N DENNISE YELLOW Decem 2023 12:03:00 AM UTC (TECH: AY) 5767-9 Appearance of Urine N HAZY CLEAR April 05, 2024 12:03:00 AM UTC (TECH: AY) 5792-7 Glucose [Mass/volume] in Urine by Test strip N norm NORMAL April 05, 2024 12:03:00 AM UTC (TECH: AY) 57543-1 Bilirubin.total [Mass/volume] in Urine by Automated test strip N NEGATIVE NEGATIVE April 05, 2024 12:03:00 AM UTC (TECH: AY) 5797-6 Ketones [Mass/volume] in Urine by Test strip N NEGATIVE NEGATIVE April 05, 2024 12:03:00 AM UTC (TECH: AY) 2965-2 Specific gravity of Urine L 1.010 1.016 - 1.022 April 05, 2024 12:03:00 AM UTC (TECH: AY) 87582-4 Erythrocytes [#/volume] in Urine by Automated test strip N 10 NEGATIVE April 05, 2024 12:03:00 AM UTC (TECH: AY) 50037-6 pH of Urine by Automated test strip N 7 5 - 9 March 12:03:00 AM UTC (TECH: AY) 13797-5 Protein [Presence] in Urine by Test strip 30 NEGATIVE April 05, 2024 12:03:00 AM UTC (TECH: AY) 63336-3 Urobilinogen [Mass/volume] in Urine by Automated test strip 8 NORMAL April 05, 2024 12:03:00 AM UTC (TECH: AY) 04423-2 Nitrate [Presence] in Urine N NEGATIVE NEGATIVE April 05, 2024 12:03:00 AM UTC (TECH: AY) 11612-6 Leukocytes [#/volume] in Urine by Test strip 25 NEGATIVE April 05, 2024 12:03:00 AM UTC (TECH: AY) 52707-6 Urinalysis dipstick W Reflex Culture panel - Urine N NO April 05, 2024 12:03:00 AM UTC (TECH: AY) 82476-7 Erythrocytes [#/area] in Urine sediment by Microscopy high power field N 0-2 NONE SEEN April 05, 2024 12:03:00 AM UTC (TECH: AY) 5821-4 Leukocytes [#/area] in Urine sediment by Microscopy high power field N 1-5 NONE SEEN April 05, 2024 12:03:00 AM UTC (TECH: AY) 28283-5 Epithelial cells.squamous [#/area] in Urine sediment by Microscopy high power field N 1-5 NONE SEEN April 05, 2024 12:03:00 AM UTC (TECH: AY) 5769-5 Bacteria [#/area] in Urine sediment by Microscopy high power field N TRACE NONE SEEN April 05, 2024 12:03:00 AM UTC (TECH: AY) ORDER 600: LACTIC ACID (LOIN C: 2524-7) ORDER DATE: April 04, 2024 10:47:00 PM UTC Specimen Source: PLASMA Specimen Type: Plasma specim en PERFORMING LAB: [address] [id number] Result Comment: Final Result Date: April 04, 2024 11:37:00 PM UTC (TECH: RR) LOINC TEST FLAG RESULT REFERENCE RANGE UPDA AWILDA BY 2524-7 Lactate [Moles/volume] in Serum or Plasma N 0.5 mmol/L 0.4 mmol/L - 2.0 mmol/L April 04, 2024 11:37:00 PM UTC (TECH: RR) LABORATORY NARRATIVE RESULTS Information is not available RADIOLOGY RESULTS ORDER 800: CHEST PORTABLE (L OINC: 33193-3) ORDER DATE: April 04, 2024 10:47:00 PM UTC PERFORMING LAB: [address] [id number] Final Result Date: April 05, 2024 1:10:32 AM UTC [address] [address] Name: JESUS ARIAS Exam Date: 04/04/2024 : 1970 Age 53 years Gender: F Physician: ANDREW LUNA Facility: [facility] Facility HSV: Outpatient Exam: CHEST PORTABLE FINAL REPORT TECHNIQUE: null CLINICAL HISTORY: Cough without fever COMPARISON: null FINDINGS: Single view of the chest. Findings: Heart size is normal. There is no consolidation. No pleural effusions are seen. IMPRESSION: Impression: No consolidation. Authenticated and EASTERN Dictated By: Rodrigo Segura Transcribed By: Transcribed On: 04/04/2024 8:10 PM Electronically signed by: Rodrigo Segura 04/04/2024 Thank you for referring JUANA JESUS to [facility]. Legally authenticated by JUAN VELAZQUEZ 2024-04-04 20:10:32 ORDER 900: CT ABD PEL W IV C ONT ONLY (LOINC: 20644-8) ORDER DATE: April 04, 2024 10:47:00 PM [facility] PERFORMING LAB: [facility] [address] [facility] [id number] Final Result Date: April 05, 2024 1:10:02 AM [facility] [address] [place] [address] Name: JESUS ARIAS Exam Date: 04/04/2024 : 1970 Age 53 years Gender: F Physician: ANDREW LUNA Facility: [facility] Facility HSV: Outpatient Exam: CT ABD PEL W (IV CONT ONLY) FINAL REPORT TECHNIQUE: null CLINICAL HISTORY: Abdominal Pain COMPARISON: null FINDINGS: CT of the abdomen and pelvis utilizing intravenous contrast. No comparison. Findings: There is mild motion artifact. The liver and gallbladder are unremarkable. No hydronephrosis. Small hypodense area in the spleen is nonspecific. The pancreas is unremarkable. There is no abdominal aortic aneurysm. There is multifocal calcified atherosclerotic plaque. There is a small amount pericardial fluid. No diverticulitis is identified. Normal appendix. There is mild nonspecific right-sided colonic wall thickening. No bowel obstruction. The bladder is nondilated. Small amount of free fluid in the pelvis. IMPRESSION: Impression: Normal appendix. No diverticulitis or bowel obstruction. Mild wall thickening of the ascending colon is likely incidental. Mild colitis less likely. Other findings as above. Authenticated and EASTERN Dictated By: Rodrigo Segura Transcribed By: Transcribed On: 04/04/2024 8:10 PM Electronically signed by: Rodrigo Segura 04/04/2024 Thank you for referring JESUS ARIAS to [facility]. Legally authenticated by JUAN VELAZQUEZ 2024-04-04 20:10:02 PATHOLOGY NARRATIVE RESULTS Information is not available MICROBIOLOGY RESULTS No Micro Labs/Results Exist for Patient BLOOD ADMIN RESULTS Information is not available MEDICATIONS HOME MEDICATIONS Status RXNORM NDC Medication Dose Route Frequency Dates Comments Reported By Updated By Drug Treatment Unknown DISCHARGE MEDICATIONS Status RXNORM NDC Medication Dose Route Frequency Dates Comments Physician Updated By No Discharge Medication Info rmation Available INPATIENT MEDICATIONS Status RXNORM NDC Medication Dose Route Frequency Rat e Quantity Dates Comments Physician Updated By Demi inued [id number] 000 ondansetron (ZOFRAN) INJ 4 MG/2 ML SOLN 4.0 MG INTRAV ENOUS ONE TIME ONLY (SCHEDULED DOSE) Start: [facility] 2023 10:55: 00 PM UT End: [facility] 2023 10:55: 00 PM [facility] KATHRYN MIGUELANGEL V INTERFAC ED on April 04, 2024 10:55:00 PM [facility] Discont inued [id number] 1366 7020 101 DUONEB 0.5-2.5 MG/3 ML SOLN 3.0 ML INHALE D ONE TIME ONLY (SCHEDULED DOSE) Start: [facility] 2023 10:55: 00 PM UT End: [facility] 2023 10:55: 00 PM [facility] Sisteer MIGUELANGEL V INTERFAC ED on April 04, 2024 10:55:00 PM [facility] SOCIAL HISTORY SOCIAL HISTORY SNOMED-CT Social History Element Description Effective Dates Offered Cessation Comment UpdatedBy [id number] Current Tobacco smoking status Current Every Day Smoker [id number] on April 04, 2024 10:21:27 PM [facility] SOCIAL HISTORY - Gender Sex: Female SOCIAL HISTORY - Status : status i nformation is not available Intention in Next Year: intention information is not available SOCIAL HISTORY - Sexual Behavior Sexual Orientation Gender Identity SNOMED-CT Description SNO MED -CT Description Activity Level No of Partners Partner Type UpdatedBy Information is not available VITAL SIGNS PATIENT VITAL SIGNS This section displays the mo st recent value for each vital sign as of April 06, 2024 4:02:06 AM [facility] Loinc Code Vital Sign Activity Date Result Updated By 8310-5 Body temperature April 04 10:19:00 PM UT 101.8 [degF] [id number] on April 04, 2024 10:20:29 PM [facility] 65453-7 Body weight Measured March 10:20:29 PM UT 57.0 kg (126.0 lb) [id number] on April 04, 2024 10:20:29 PM [facility] 8462-4 Diastolic blood pressure April 04, 2024 10:46:00 PM UT 80.0 mm[Hg] [id number] on April 05, 2024 1:55:38 AM [facility] 8867-4 Heart rate April 05 1:50:00 AM [facility] 88 /min [id number] on April 05, 2024 1:58:53 AM [facility] 55166-7 Oxygen saturation in Arterial blood by Pulse oximetry April 05, 2024 1:50:00 AM UT 98.0 % [id number] on April 05, 2024 1:58:53 AM [facility] 9279-1 Respiratory rate April 05 1:50:00 AM UT 27 /min [id number] on April 05, 2024 1:58:53 AM [facility] 8480-6 Systolic blood pressure April 04, 2024 10:46:00 PM UT 134.0 mm[Hg] [id number] on April 05, 2024 1:55:38 AM [facility] PEDIATRIC GROWTH CHART - VITAL SIGNS This section displays Head C ircumference Percentile, Weight for Length Percentile and BMI Percentile Loinc Code Pediatric Measure Age (Months) Result Updat ed By No Pediatric Growth Chart Pe rcentile Information Available. HEALTH CONCERNS Problems Concern Status Health Concern problem infor mation not available. Smoking Status Status Years Used Consumed packs p er day Health Concern smoking histo ry information not available. Family History Concern Status Health Concern family histor y information not available. ENCOUNTERS ENCOUNTER INFORMATION Reason for Visit NOT FEELING WELL/ TARIQ S LEUKEMIA Admission April 04, 2024 10:13:[address] [address] Discharge April 05, 2024 1:59:00 AM [facility] DISCHARGED TO HOME OR SELF CARE ENCOUNTER DIAGNOSES Notes information is not leidy ilable. Code System Diagnosis Onset Date Diagnosis information is not available. ABSTRACT DIAGNOSES Code System Diagnosis Updated By R05.9 ICD10 COUGH, UNSPECIFIED [id number] o n April 06, 2024 4:01:24 AM [facility] R11.2 ICD10 NAUSEA WITH VOMITING, UNSPEC IFIED [id number] on April 06, 2024 4:01:24 AM [facility] R53.83 ICD10 OTHER FATIGUE [id number] on Mar 4:01:24 AM UTC U07.1 ICD10 COVID-19 [id number] on 2023 4:01:24 AM UTC CARE TEAM Care Tearoom Host/Hostess Role MIGUELANGEL PERALTA Primary Attending TIESHA MORA Primary Care TIESHA MORA Referring MIGUELANGEL PERALTA Admitting CARE TEAM CARE geological specialist Role on Team Status Start Date End Date Update d By ABBY Bass PCP normal March 10:24:58 PM UTC April 05, 2024 1:59:00 AM UTC [id number] on April 04, 2024 10:24:58 PM UTC ABBY Bass Referring normal March 10:24:57 PM UTC April 05, 2024 1:59:00 AM UTC [id number] on April 04, 2024 10:24:58 PM UTC KATHRYN MEANS V Attending normal April 04 10:24:57 PM UTC April 05, 2024 1:59:00 AM UTC [id number] on April 04, 2024 10:24:58 PM UTC KATHRYN MEANS V Admitting normal April 04 10:24:57 PM UTC April 05, 2024 1:59:00 AM UTC [id number] on April 04, 2024 10:24:58 PM UTC EMILY PALM PCP normal April 04, 2024 10:14:16 PM UTC April 04, 2024 10:24:58 PM UTC [id number] on April 04, 2024 10:24:58 PM UTC
== END 2024-07-17 23:59 | disposition home or self-care (01) ==
LOC: LAB 16:03
PROVIDERS: PCP Family Medicine; Visit Provider Internal Medicine Medical Oncology
DX: C92.10 Chronic myeloid leukemia, BCR/ABL-positive, not having achieved remission (principal)
CPT/HCPCS: 36415; 85025

== ENCOUNTER 2024-07-23 14:24 | Outpatient (CLI) | payer MEDICAID, SELFPAY ==
[2024-07-23 15:01] LABS: Basophils % 0.8 % (0.1-2.0); Eosinophils % 0.8 % (0.1-12.0); Hematocrit 38.3 % (37.0-47.0); Hemoglobin 13.3 g/dL (12.2-16.2); Lymphocytes # 1.9 K/mm3 (0.7-4.5); Lymphocytes % 47.3 % (10-50); Mean Corpuscular HGB Conc 34.7 g/dL (31.8-35.4); Mean Corpuscular Hemoglobin 30.8 pg (27.0-31.2); Mean Corpuscular Volume 88.7 fl (81-99); Mean Platelet Volume 10.5 fl (7.4-10.4); Monocytes # 0.1 K/mm3 (0.1-1.0); Monocytes % 1.8 % (1.7-9.3); Neutrophils % 48.8 % (37.0-80.0); Nucleated Red Blood Cells # 0 10^3/uL; Nucleated Red Blood Cells % 0 %; Platelet Count 115 K/mm3 (142-424); Red Blood Count 4.32 M/mm3 (4.20-5.40); Red Cell Distribution Width 16.3 % (11.5-17.5); Red Cell Distribution Width-SD 53.2 fL
== END 2024-07-23 23:59 | disposition home or self-care (01) ==
LOC: LAB 14:24
PROVIDERS: PCP Family Medicine; Visit Provider Internal Medicine Medical Oncology
DX: C92.10 Chronic myeloid leukemia, BCR/ABL-positive, not having achieved remission (principal)
CPT/HCPCS: 36415; 85025

== ENCOUNTER 2024-07-30 14:45 | Outpatient (CLI) | payer MEDICAID, SELFPAY ==
[2024-07-30 15:23] LABS: Basophils % 0.3 % (0.1-2.0); Eosinophils # 0.1 Kmm3 (0.0-0.4); Eosinophils % 0.8 % (0.1-12.0); Hematocrit 43.3 % (37.0-47.0); Lymphocytes # 1.9 K/mm3 (0.7-4.5); Mean Corpuscular HGB Conc 34.6 g/dL (31.8-35.4); Mean Corpuscular Hemoglobin 30.7 pg (27.0-31.2); Mean Corpuscular Volume 88.5 fl (81-99); Mean Platelet Volume 10.5 fl (7.4-10.4); Monocytes # 0.1 K/mm3 (0.1-1.0); Neutrophils # 4.2 K/mm3 (1.8-7.8); Neutrophils % 67.6 % (37.0-80.0); Nucleated Red Blood Cells # 0 10^3/uL; Nucleated Red Blood Cells % 0 %; Platelet Count 95 K/mm3 (142-424); Red Blood Count 4.89 M/mm3 (4.20-5.40); Red Cell Distribution Width 15.9 % (11.5-17.5); Red Cell Distribution Width-SD 51.8 fL; White Blood Count 6.2 K/mm3 (4.8-10.8)
== END 2024-07-30 23:59 | disposition home or self-care (01) ==
LOC: LAB 14:46
PROVIDERS: PCP Family Medicine; Visit Provider Internal Medicine Medical Oncology
DX: C92.10 Chronic myeloid leukemia, BCR/ABL-positive, not having achieved remission (principal)
CPT/HCPCS: 36415; 85025

== ENCOUNTER 2024-08-07 15:01 | Outpatient (CLI) | payer MEDICAID, SELFPAY ==
[2024-08-07 17:03] LABS: Basophils % 0.3 % (0.1-2.0); Eosinophils # 0.1 Kmm3 (0.0-0.4); Eosinophils % 2.1 % (0.1-12.0); Hematocrit 37.4 % (37.0-47.0); Hemoglobin 12.7 g/dL (12.2-16.2); Lymphocytes # 2.4 K/mm3 (0.7-4.5); Lymphocytes % 62.3 % (10-50); Mean Corpuscular Hemoglobin 30.6 pg (27.0-31.2); Mean Corpuscular Volume 90.1 fl (81-99); Mean Platelet Volume 11.7 fl (7.4-10.4); Monocytes # 0.1 K/mm3 (0.1-1.0); Monocytes % 1.3 % (1.7-9.3); Neutrophils # 1.3 K/mm3 (1.8-7.8); Nucleated Red Blood Cells # 0 10^3/uL; Nucleated Red Blood Cells % 0 %; Platelet Count 75 K/mm3 (142-424); Red Blood Count 4.15 M/mm3 (4.20-5.40); Red Cell Distribution Width 15.8 % (11.5-17.5); Red Cell Distribution Width-SD 52.1 fL; White Blood Count 3.9 K/mm3 (4.8-10.8)
== END 2024-08-07 23:59 | disposition home or self-care (01) ==
LOC: LAB 15:02
PROVIDERS: PCP Family Medicine; Visit Provider Internal Medicine Medical Oncology
DX: C92.10 Chronic myeloid leukemia, BCR/ABL-positive, not having achieved remission (principal)
CPT/HCPCS: 36415; 85025

== ENCOUNTER 2024-08-13 14:41 | Outpatient (CLI) | payer MEDICAID, SELFPAY ==
[2024-08-13 15:15] LABS: Basophils % 0.3 % (0.1-2.0); Eosinophils # 0.1 Kmm3 (0.0-0.4); Eosinophils % 2.1 % (0.1-12.0); Hematocrit 38.8 % (37.0-47.0); Hemoglobin 13.2 g/dL (12.2-16.2); Immature Granulocytes # 0 10^3uL; Immature Granulocytes % 0 %; Lymphocytes # 1.7 K/mm3 (0.7-4.5); Lymphocytes % 58.4 % (10-50); Mean Corpuscular Hemoglobin 30.6 pg (27.0-31.2); Mean Corpuscular Volume 89.8 fl (81-99); Mean Platelet Volume 10.9 fl (7.4-10.4); Monocytes # 0.1 K/mm3 (0.1-1.0); Monocytes % 2.1 % (1.7-9.3); Neutrophils # 1.1 K/mm3 (1.8-7.8); Neutrophils % 37.1 % (37.0-80.0); Nucleated Red Blood Cells # 0 10^3/uL; Nucleated Red Blood Cells % 0 %; Platelet Count 75 K/mm3 (142-424); Red Blood Count 4.32 M/mm3 (4.20-5.40); Red Cell Distribution Width 16.1 % (11.5-17.5); Red Cell Distribution Width-SD 52.6 fL; White Blood Count 2.9 K/mm3 (4.8-10.8)
== END 2024-08-13 23:59 | disposition home or self-care (01) ==
LOC: LAB 14:42
PROVIDERS: PCP Family Medicine; Visit Provider Internal Medicine Medical Oncology
DX: C92.10 Chronic myeloid leukemia, BCR/ABL-positive, not having achieved remission (principal)
CPT/HCPCS: 36415; 85025

== ENCOUNTER 2024-08-28 10:01 | Outpatient (CLI) | payer MEDICAID, SELFPAY ==
[2024-08-28 10:28] LABS: Basophils % 0.4 % (0.1-2.0); Eosinophils % 0.7 % (0.1-12.0); Hematocrit 36.4 % (37.0-47.0); Hemoglobin 12.4 g/dL (12.2-16.2); Immature Granulocytes # 0.01 10^3uL; Immature Granulocytes % 0.4 %; Lymphocytes # 1.5 K/mm3 (0.7-4.5); Lymphocytes % 55.8 % (10-50); Mean Corpuscular HGB Conc 34.1 g/dL (31.8-35.4); Mean Corpuscular Hemoglobin 31.4 pg (27.0-31.2); Mean Corpuscular Volume 92.2 fl (81-99); Mean Platelet Volume 11.3 fl (7.4-10.4); Monocytes # 0.1 K/mm3 (0.1-1.0); Monocytes % 1.8 % (1.7-9.3); Neutrophils # 1.1 K/mm3 (1.8-7.8); Neutrophils % 40.9 % (37.0-80.0); Nucleated Red Blood Cells # 0 10^3/uL; Nucleated Red Blood Cells % 0 %; Red Blood Count 3.95 M/mm3 (4.20-5.40); Red Cell Distribution Width 16.1 % (11.5-17.5); Red Cell Distribution Width-SD 53.8 fL; White Blood Count 2.8 K/mm3 (4.8-10.8)
[2024-08-28 10:35] LABS: Platelet Count 47 K/mm3 (142-424)
== END 2024-08-28 23:59 | disposition home or self-care (01) ==
LOC: LAB 10:01
PROVIDERS: PCP Family Medicine; Visit Provider Internal Medicine Medical Oncology
DX: C92.10 Chronic myeloid leukemia, BCR/ABL-positive, not having achieved remission (principal)
CPT/HCPCS: 36415; 85025

== ENCOUNTER 2024-09-05 16:41 | Outpatient (CLI) | payer MEDICAID, SELFPAY ==
[2024-09-05 17:58] LABS: Basophils % 0.4 % (0.1-2.0); Eosinophils % 0.9 % (0.1-12.0); Hematocrit 33.3 % (37.0-47.0); Hemoglobin 11.1 g/dL (12.2-16.2); Immature Granulocytes # 0.01 10^3uL; Immature Granulocytes % 0.4 %; Lymphocytes # 1.6 K/mm3 (0.7-4.5); Lymphocytes % 73.5 % (10-50); Mean Corpuscular HGB Conc 33.3 g/dL (31.8-35.4); Mean Corpuscular Hemoglobin 31.1 pg (27.0-31.2); Mean Corpuscular Volume 93.3 fl (81-99); Mean Platelet Volume 11.2 fl (7.4-10.4); Monocytes # 0.1 K/mm3 (0.1-1.0); Monocytes % 2.2 % (1.7-9.3); Neutrophils # 0.5 K/mm3 (1.8-7.8); Neutrophils % 22.6 % (37.0-80.0); Nucleated Red Blood Cells # 0 10^3/uL; Nucleated Red Blood Cells % 0 %; Red Blood Count 3.57 M/mm3 (4.20-5.40); Red Cell Distribution Width 16.5 % (11.5-17.5); Red Cell Distribution Width-SD 56.4 fL; White Blood Count 2.2 K/mm3 (4.8-10.8)
[2024-09-05 18:17] LABS: Platelet Count 46 K/mm3 (142-424)
[2024-09-05 18:18] LABS: MANUAL DIFFERENTIAL MANUAL DIFFERENTIAL (MANUAL DIFF)
[2024-09-05 18:49] LABS: Lymphocytes % 84 % (10-50); Monocytes % 4 % (2-9); Neutrophils % 12 % (42-76); RBC Morphology Normal; Total Cells Counted 50
[2024-09-05 18:51] LABS: Platelet Estimate Marked Decrease
== END 2024-09-05 23:59 | disposition home or self-care (01) ==
LOC: LAB 16:42
PROVIDERS: PCP Family Medicine; Visit Provider Internal Medicine Medical Oncology
DX: C92.10 Chronic myeloid leukemia, BCR/ABL-positive, not having achieved remission (principal)
CPT/HCPCS: 36415; 85007; 85025; 85027

== ENCOUNTER 2024-09-17 14:37 | Outpatient (CLI) | payer MEDICAID, SELFPAY ==
--- OUTSIDE RECORDS SUMMARY | 2024-07-24 10:30 | XMS_ITS | Encounter Summary ---
Author Organization [facility] Address [address] [place] [address] Care Team Providers Care Clinical Reviewer Name Role Phone Willi Frost MD Primary Care Provider [phone] Reason for Visit * Reason Comments Labs Only * Genetic Testing (Routine) - Closed Specialty Diagnoses / Procedures Referred By Contac t Referred To Contact Lab Diagnoses CML (chronic myelocytic leukemia) (CMS/HCC) Procedures Quant Detection of BCR-ABL1 Major (p210) (SO) Mk Pastrana MD [address] [facility] [address] [place] [phone] Phone: tel: fax: Referral ID Status Reason Start Date Expiration Date Visits Re quested Visits Authorized [id number] Closed 07/18/2024 01/17/2026 1 1 Encounter Details Date Type Department Care Team (Late st Contact Info) Description 07/24/2024 10:30 AM EDT Clinical Support [facility] Hematology/BMT and Cellular Therapy Program [address] [place] [address] Gisselle Shaffer, RN [facility] Social History Tobacco Use Types Packs/Day Years Used Date Smoking Tobacco: Every Day Cigarettes Smokeless Tobacco: Never PHQ-2 Answer Date Recorded Patient Health Questionnaire-2 Score 0 04/30/2024 Comments Unknown Sex and Gender Information Value Date Recorded Sex Assigned at Female 06/07/2024 5:58 PM EST Legal Sex Female 12:57 PM EST Gender Identity Female 06/07/2024 5:58 PM EST Sexual Orientation Not on file documented as of this encounter Plan of Treatment Upcoming Encounters Date Type Department Care Team ([facility] st Contact Info) Description 09/25/2024 10:30 AM EDT Clinical Support [facility] Hematology/BMT and Cellular Therapy Program [address] [phone] 09/25/2024 11:00 AM EDT Office Visit [facility] Hematology/BMT and Cellular Therapy Program [address] [phone] Elena Ledezma, DIRECTOR OF LITIGATION [address] [facility] [address] [place] [phone] 09/25/2024 2:00 PM EDT Appointment [facility] Echo [address] [facility] [address] [place] [phone] 09/25/2024 3:00 PM EDT Appointment [facility] Pulmonary Function Testing [address] [place] [phone] 10/01/2024 1:00 PM EDT Clinical Support [facility] Hematology/BMT and Cellular Therapy Program [address] [phone] 10/01/2024 2:00 PM EDT Office Visit [facility] Hematology/BMT and Cellular Therapy Program [address] [place] [phone] 10/03/2024 8:30 AM EDT Clinical Support [facility] Hematology/BMT and Cellular Therapy Program [address] [place] [phone] 10/03/2024 9:00 AM EDT Procedure Visit [facility] Hematology/BMT and Cellular Therapy Program [address] [phone] Bhavana Bella, DIRECTOR OF LITIGATION [address] [facility] [address] [place] [phone] 10/10/2024 Hospital Encounter [facility] Inpatient [facility] [address] [place] [phone] Mk Pastrana MD [address] [facility] [address] [place] [phone] documented as of this encounter Visit Diagnoses Not on filedocumented in this encounter Care Teams Clinical Reviewer Relationship Specialty Start Date End Date Willi Frost MD [address] [place] [address] [address] [place] [address] PCP - General 06/11/24 documented as of this encounter
--- OUTSIDE RECORDS SUMMARY | 2024-07-24 11:00 | XMS_ITS | Encounter Summary ---
Author Organization [facility] Address [address] [place] [address] Care Team Providers Care Printing Plate Maker Name Role Phone Willi Frost MD Primary Care Provider [phone] Reason for Referral * Genetic Testing (Routine) - Closed Specialty Diagnoses / Procedures Referred By Contac t Referred To Contact Lab Diagnoses CML (chronic myelocytic leukemia) (CMS/HCC) Procedures Quant Detection of BCR-ABL1 Major (p210) (SO) Mk Pastrana MD [address] [facility] [address] [address] Phone: tel: fax: Referral ID Status Reason Start Date Expiration Date Visits Re quested Visits Authorized [id number] Closed 07/18/2024 01/17/2026 1 1 Reason for Visit * Genetic Testing (Routine) - Closed Specialty Diagnoses / Procedures Referred By Contac t Referred To Contact Lab Diagnoses CML (chronic myelocytic leukemia) ([facility]/HCC) Procedures Quant Detection of BCR-ABL1 Major (p210) (SO) Mk Pastrana MD [facility] [address] [address] Phone: tel: fax: Referral ID Status Reason Start Date Expiration Date Visits Re quested Visits Authorized [id number] Closed 07/18/2024 01/17/2026 1 1 Encounter Details Date Type Department Care Team (Latest Contact Info) Description 07/24/2024 11:00 AM EDT Office Visit [facility] Hematology/BMT and Cellular Therapy Program [address] [place] [phone] Mk Pastrana MD [address] [facility] [address] [place] [phone] CML (chronic myelocytic leukemia) (CMS/HCC) (Primary Dx); Hyperbilirubinemia; Encounter for antineoplastic chemotherapy Social History Tobacco Use Types Packs/Day Years [...] on file documented as of this encounter Last Filed Vital Signs Vital Sign Reading Time Taken Comments Blood Pressure 100/72 07/24/2024 11:24 AM EDT Pulse 65 07/24/2024 11:24 AM EDT Temperature 36.7 C (98 F) 07/24/2024 11:24 AM EDT Respiratory Rate - - Oxygen Saturation 96% 07/24/2024 11:24 AM EDT Inhaled Oxygen Concentration - - Weight 59.9 kg (132 lb 0.9 oz) 07/24/2024 11:24 AM EDT Height 165.1 cm (5' 5 ) 07/24/2024 11:24 AM EDT Body Mass Index 21.98 07/24/2024 11:24 AM EDT documented in this encounter Miscellaneous Notes * Progress Notes - Mk Pastrana MD - 07/24/2024 11:00 AM EDT Patient Information Patient Name: Amita Ortiz Date of : 1970 REFERRING PHYSICIAN: Mk Pastrana MD [facility] [address] [address] Encounter Date: 07/29/2024 Patient Care Team: Willi Frost MD as PCP - General No chief complaint on file. Hematologic History Cancer Staging No matching staging information was found for the patient. Amita Ortiz is a 54 y.o. who was referred to me to establish care for the treatment of CML. Current Treatment Regimen: Asciminib 40 mg/day History of Present Illness: 06/09/23 - Peripheral blood flow cytometry performed in [place] for leukocytosis revealed 3% myeloblasts with maturing myeloid cells. Marked leukocytosis with circulating myelocytes and promyelocyteswas also observed. Subsequent BCR-ABL FISH studies on peripheral blood were positive. White blood cell count: 232 ?? 10?/L, hemoglobin: 7.4 g/dL, platelet count: 91 ?? 10?/L. CMP was unremarkable. 06/15/23 - Bone marrow biopsy in [place] was consistent with chronic myeloid leukemia with grade 3 of 3 fibrosis and up to 10% blasts. Flow cytometry revealed 5% myeloblasts. 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 Further molecular testing revealed BCR-ABL1 positivity but was negative for mutations in CALR, FLT3, IDH1, IDH2, JAK2, MPL, NPM1, and TP53. NGS testing identified mutations in ASXL1, BCOR, and DNMT3A. 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 Sokal score: 1.6 (high); EURO score: 107 (high). The patient was briefly on Hydrea for cytoreduction, followed by dasatinib. 06/11/23 - Started on nilotinib 300 mg p.o. twice daily due to severe drug rash with dasatinib but discontinued a few days later due to a severe skin rash. Therapy was restarted at 300 mg p.o. daily.White blood cell count decreased to 25 ?? 10?/L. 08/23/23 - Increased nilotinib to 300 mg p.o. every morning and 150 mg p.o. nightly. 10/2023 - Relocated to [facility] and established care with Fredrick Bateman in [place], [place], for hematology/oncology follow-up. By that point, the patient had been on nilotinib 300 mg p.o. twice daily for several weeks. CBC with differential was normal. BCR-ABL testing on peripheral bloodrevealed PCR positivity of 26.98% (b2a2 transcript), 17.66% (B3 A2 transcript, T548-tgent), and 0.0403% (ela2, S212-brhqy transcript). The recommendation was to continue current therapy. 11/22/23 - Transferred care to [facility] hematology/oncology. The recommendation was to continue therapy with follow-up in several weeks and repeat molecular testing. 01/13/24 - CBC showed a platelet count of 133 ?? 10?/L, which was otherwise normal. CMP noted glucose at 107 mg/dL. Peripheral blood BCR-ABL testing revealed b2a2 at 22.48%, b3a2 at 13.74%, and ela2 <0.0032%. 02/13/24 - Bone marrow biopsy revealed a variable hypocellular bone marrow with decreased granulopoiesis, borderline decreased erythropoiesis, and adequate megakaryocytes (with minimal atypia and patchy reticulin fibrosis 0-1+). No blasts were noted. 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 BCR- ABL1 kinase domain evaluation revealed a [id number] nucleotide change. There was nomutation in G250E, Y253H, E255K/V, V299L, T315I/A, F317L/V/I/C, A337T, F359V/I/C, or P465S. 04/30/2024- started asciminib 80 mg/day. However, it was held on 06/12-07/15 due to neutropenia and resumed at 40 mg/day on 07/15. 05/07/2024- BCR-ABL1 PCR was positive for p210 copy at 46%. 07/24/2024- BCR-ABL1 PCR was high-positive for p210 copy Past Medical, Surgical, Family and Social History No past medical history on file. No past surgical history on file. Mom - ovarian cancer (in 50s) Grandfather - brain (in 70s) Social History Tobacco Use Smoking status: Every Day Current packs/day: 0.50 Types: Cigarettes Smokeless tobacco: Never Vaping Use Vaping status: Every Day Substances: THC Allergies and Adverse Drug Reactions Patient has no known allergies. Medications Current Outpatient Medications: Asciminib HCl 40 MG tablet, Take 40 mg by mouth daily., Disp: 60 tablet, Rfl: 2 Subjective Interval History: She is overall feeling well. She is taking medication as prescribed. Denies fever or infection, shortness of breath, n/v/d. Review of Systems: 14- point ROS is reviewed and negative except in HPI. Objective Performance Status ECOG 1 Visit Vitals BP 100/72 Pulse 65 Temp 36.7 ??C (98 ??F) BSA: Estimated body surface area is 1.66 meters squared as calculated from the following: Height as of this encounter: 1.651 m (5' 5 ). Weight as of this encounter: 59.9 kg (132 lb 0.9 oz). EXAM General: No acute distress; sitting upright in a chair, speaking in full sentences Head: normocephalic, atraumatic EENT: sclera clear , no proptosis or lid lag; nose patent Cardiac: no LE edema Lungs: no audible wheezing or cough , on room air Abdomen: soft, NTND Neuro: AAOx3, follows commands, speech intact , normal hearing Skin: no obvious rashes : deferred, no urinary compliants, no CVA tenderness per pt MSK: moving upper extremities well , ROM intact. facial muscles appear symmetrical Heme: no obvious bruising, no pallor Psych: appropriate mood & affect Investigations LABORATORIES AND STUDIES: reviewed by me personally Lab Results Component Value Date WBC 3.48 (L) 07/24/2024 RBC 4.22 07/24/2024 HGB 12.8 07/24/2024 HCT 37.3 07/24/2024 MCV 88 07/24/2024 MCHC 34.3 07/24/2024 RDW 16.5 (H) 07/24/2024 PLT 103 (L) 07/24/2024 MPV 10.3 07/24/2024 Lab Results Component Value Date BUN 10 07/24/2024 CL 105 07/24/2024 NA 141 07/24/2024 K 4.3 07/24/2024 TP 7.1 07/24/2024 AST 16 07/24/2024 ALT 15 07/24/2024 I visualized the recent imaging and discussed the current radiology findings with the patient in detail and released the report gave copies of the reports to the patient and answered all questions. No results found for this or any previous visit. No results found for this or any previous visit. Assessment and Plan: Assessment/Plan Accelerated Phase chronic myeloid leukemia: Ms. Amita Ortiz is a 54-year-old female with high-risk chronic phase vs accelerated chronic myeloidleukemia (CML), initially diagnosed in [place] on June 15, 2023, following evaluation for marked leukocytosis (WBC 232 ?? 10?/L), anemia (Hb 7.4 g/dL), and thrombocytopenia (platelets 91 ?? 10?/L). Peripheral flow cytometry revealed 3% myeloblasts and a left-shifted differential. 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 Additional high-risk molecular findings included mutations in ASXL1, BCOR, and DNMT3A. The Sokal score was 1.6 (high), and the EURO score was 107 (high). She was initially started on hydroxyurea for cytoreduction and then transitioned to dasatinib but developed a severe skin rash. She was subsequently started on nilotinib 300 mg BID on 06/11/2023, whichalso caused a recurrent rash, necessitating temporary dose reduction to 300 mg daily and later adjusted to 300 mg in the morning and 150 mg in the evening by mid-August. After relocating to [place] in October 2023, she established care locally and remained on nilotinib 300 mg BID. Her CBC normalized, but serial BCR-ABL1 PCR testing showed persistent positivity with values in October and January 2024 ranging from 13-27% for p210 transcripts. On 02/13/2024, a bone marrow biopsy showed variable hypocellularity, borderline erythroid hypoplasia, no increase in blasts, and patchy mild fibrosis (0-1+). Cytogenetics remained positive for t(9;22), and BCR-ABL1 kinase domain analysis identified a [id number] deletion. No mutations were found at common resistance loci such as T315I or E255K/V. Given molecular and cytogenetic persistence, she was switched to asciminib 80 mg daily on 04/30/2024. However, treatment was held between 06/12 and 07/15 due to neutropenia and resumed at a reduced dose of 40 mg daily. Her BCR-ABL1 PCR on 05/07/2024 remained elevated at 46%, and repeat testing on 07/24/2024 continued to show high p210 transcript levels. Given persistent molecular and cytogenetic disease, the presence of high-risk features at diagnosis, additional somatic mutations, and suboptimal response to multiple TKIs, Ms. Ortiz is being evaluated for consideration of allogeneic hematopoietic stem cell transplantation. Plan: - Will continue asciminib 40 mg/day. - Plan to repeat BCR/ABL1 PCR in 6 weeks. - Plan for allogenic transplant work-ups. A 01/17 donor was identified RTC 4-6 weeks History of HCV. PCR is negative. Tobacco use. We counseled her on smoking cessation. Hyperbilirubinemia. Was mildly elevated at 1.2 mg/dL. Could be related to nilotinib. Will monitor. Now normalized. I spent 30 minutes examining and counseling the patient, reviewing previous charts, reviewing results, and documenting. Imani Reynolds MD Hematology/Oncology Fellow Pager: [phone] * Progress Notes - Jojo Iyer, PharmD - 07/24/2024 11:00 AM EDT Pharmacy Hematology/Oncology Treatment Note Amita Ortiz is a 54 y.o. female with Cancer Staging No matching staging information was found for the patient. CML Study Patient: no Treatment Plan reviewed for Asciminib: [x] Follow-Up Clinical Review for Continuous Oral Therapy Interval History: Patient presented in June 2023 with CML-AP with 10% blasts. Was initiated on dasatinib but shortly discontinued due to skin rash and initiated on Nilotinib 300 mg BID. The nilotinib was eventually dose reduced to 300 mg once daily and eventually increased to 300 mg QAM and 150 mgQPM. She transferred her care to [place] in October 2023 and was found have an increased BCR-ABL, so Nilotinib increased back to 300 mg BID. Her transcripts remained elevated with each check afterwards. Given her persistent transcripts, she was seen today for Asciminib initiation and transfer of care. 07/24/24: Asciminib was held from 06/11/24 - 07/15/24 due to ANC < 1000. Dose was reduced 50% per package insert. Today's Wt: Wt Readings from Last 1 Encounters: 07/24/24 59.9 kg (132 lb 0.9 oz) Dosing Wt: n/a Dosing Ht: n/a DosingBSA: n/a Recent Labs: Lab Results Component Value Date WBC 3.48 (L) 07/24/2024 HGB 12.8 07/24/2024 HCT 37.3 07/24/2024 MCV 88 07/24/2024 PLT 103 (L) 07/24/2024 Lab Results Component Value Date GLUCOSE 84 07/24/2024 CALCIUM 9.7 07/24/2024 NA 141 07/24/2024 K 4.3 07/24/2024 CO2 27 07/24/2024 CL 105 07/24/2024 BUN 10 07/24/2024 CREATININE 0.74 07/24/2024 Lab Results Component Value Date ALT 15 07/24/2024 AST 16 07/24/2024 ALKPHOS 95 07/24/2024 BILITOT 1.0 07/24/2024 Lab Results Component Value Date NEUTROABS 1.79 07/24/2024 Lab Results Component Value Date MG 2.1 07/24/2024 No results found for: TSH No results found for: URINEPRO Vitals: Visit Vitals BP 100/72 Pulse 65 Temp 36.7 ??C (98 ??F) Other Relevant Monitorin04/30/24 Hep C Ab (+) 04/30/24 Hep C PCR (pending) 04/30/24 Qtc: 450 ms BCR-ABL: 10/2023: 26.98% b2a2 transcript, 17.66% b3a2 transcript ([id number]) and 0.0403 P190 minor. 01/2024: b2a2 22.48%, b3a2 13.74% and e1a2 <0.0032% Treatment/Therapy Plan: Asciminib 40 mg PO QD [x] Dose reduced 50% d/t neutropenia Current Treatment Plan History: Asciminib 80 mg (04/30/2024 - 06/11/24) Asciminib 40 mg (07/15/24 - present) Prior Treatment History: Hydrea cytoreduction (06/2023) Dasatinib (06/2023) - discontinued d/t rash Nilotinib 06/2023 - 04/2024 Plan: Patient will return to clinic in 8 weeks. Will follow-up at that time. Pharmacist Attestation: Jojo Iyer, [place] 07/24/2024 12:22 PM documented in this encounter Plan of Treatment Upcoming Encounters Date Type Department Care Team ([facility] st Contact Info) Description 09/25/2024 10:30 AM EDT Clinical Support [facility] Hematology/BMT and Cellular Therapy Program [address] [phone] 09/25/2024 11:00 AM EDT Office Visit [facility] CC Hematology/BMT and Cellular Therapy Program [address] [place] [phone] Elena Ledezma, EMPLOYEE'S REPRESENTATIVE [facility] [address] [place] [phone] 09/25/2024 2:00 PM EDT Appointment P[facility] CC Echo 800 [facility] [address] [place] [address] 09/25/2024 3:00 PM EDT Appointment PAV H Pulmonary Function Testing [address] [place] [address] 10/01/2024 1:00 PM EDT Clinical Support [facility] Hematology/BMT and Cellular Therapy Program [address] [phone] 10/01/2024 2:00 PM EDT Office Visit [facility] Hematology/BMT and Cellular Therapy Program [address] [place] [phone] 10/03/2024 8:30 AM EDT Clinical Support [facility] Hematology/BMT and Cellular Therapy Program [address] [place] [phone] 10/03/2024 9:00 AM EDT Procedure Visit [facility] CC Hematology/BMT and Cellular Therapy Program [address] [place] [address] [address] [place] [address] Bhavana Bella, EMPLOYEE'S REPRESENTATIVE [facility] [address] [place] [phone] 10/10/2024 Hospital Encounter PAV A Inpatient [facility] [address] [place] [address] Mk Pastrana MD [address] [facility] [address] [place] [phone] documented as of this encounter Procedures Procedure Name Priority Date/Time Associated Diagnosis Comments QUANT DETECTION OF BCR-ABL1 MAJOR (P210) (SO) Routine 07/24/2024 10:56 AM EDT CML (chronic myelocytic leukemia) (CMS/HCC) CBC WITH AUTO DIFFERENTIAL Routine 07/24/2024 10:56 AM EDT CML (chronic myelocytic leukemia) (CMS/HCC) PHOSPHORUS, PLASMA Routine 07/24/2024 10 :56 AM EDT CML (chronic myelocytic leukemia) (CMS/HCC) MAGNESIUM, PLASMA Routine 07/24/2024 10: 56 AM EDT CML (chronic myelocytic leukemia) (CMS/HCC) LIPASE, PLASMA Routine 07/24/2024 10:56 AM EDT CML (chronic myelocytic leukemia) (CMS/HCC) LACTATE DEHYDROGENASE, PLASMA Routine 07/24/2024 10:56 AM EDT CML (chronic myelocytic leukemia) (CMS/HCC) AMYLASE, PLASMA Routine 07/24/2024 10:56 AM EDT CML (chronic myelocytic leukemia) (CMS/HCC) COMPREHENSIVE METABOLIC PANEL, PLASMA Routine 07/24/2024 10:56 AM EDT CML (chronic myelocytic leukemia) (CMS/HCC) documented in this encounter Results * Lipase, Plasma (07/24/2024 10:56 AM EDT) Lipase, Plasma 29 19 - 63 U/L 07/24/2024 11:53 AM EDT [facility] Blood Venous blood specimen / Unknown Venipuncture / Unknown 07/24/2024 10:56 AM EDT 07/24/2024 11:22 AM EDT Mk Pastrana MD LAB BLOOD [place] [address] * Phosphorus, Plasma (07/24/2024 10:56 AM EDT) Phosphorus, Plasma 3.8 2.5 - 4.5 mg/dL 07/24/2024 11:53 AM EDT [facility] Blood Venous blood specimen / Unknown Venipuncture / Unknown 07/24/2024 10:56 AM EDT 07/24/2024 11:22 AM EDT Mk Pastrana MD LAB BLOOD [place] [address] * Amylase, Plasma (07/24/2024 10:56 AM EDT) Amylase 47 27 - 114 U/L 07/24/2024 11:53 AM EDT [facility] Blood Venous blood specimen / Unknown Venipuncture / Unknown 07/24/2024 10:56 AM EDT 07/24/2024 11:22 AM EDT Mk Pastrana MD LAB BLOOD ORDERABLES Final Re sult Performing Organization Address City/[facility]/[place] [address] * Magnesium, Plasma (07/24/2024 10:56 AM EDT) Magnesium, Plasma 2.1 1.9 - 2.4 mg/dL 07/24/2024 11:53 AM EDT [facility] Blood Venous blood specimen / Unknown Venipuncture / Unknown 07/24/2024 10:56 AM EDT 07/24/2024 11:22 AM EDT Mk Pastrana MD LAB BLOOD ORDERABLES Final Re sult Performing Organization Address [facility]/ZIP Co de Phone Number [facility] [address] [place] [address] * Lactate Dehydrogenase, Plasma (07/24/2024 10:56 AM EDT) LDH, Plasma 197 116 - 250 U/L 07/24/2024 11:53 AM EDT [facility] Comment:Hemolyzed, result ma y be falsely increased. Blood Venous blood specimen / Unknown Venipuncture / Unknown 07/24/2024 10:56 AM EDT 07/24/2024 11:22 AM EDT Mk Pastrana MD LAB BLOOD ORDERABLES Final Re sult Performing Organization Address [facility] de Phone Number [facility] [address] [place] [address] * Comprehensive Metabolic Panel, Plasma (07/24/2024 10:56 AM EDT) Glucose, Plasma 84 74 - 99 mg/dL 07/24/2024 11:53 AM EDT [facility] BUN, Plasma 10 7 - 21 mg/dL 07/24/2024 11:53 AM EDT [facility] Creatinine, Plasma 0.74 0.60 - 1.10 mg/dL 07/24/2024 11:53 AM EDT [facility] BUN/Creatinine Ratio 14 07/24/2024 11:53 AM EDT [facility] Sodium, Plasma 141 136 - 145 mmol/L 07/24/2024 11:53 AM EDT [facility] Potassium, Plasma 4.3 3.6 - 4.9 mmol/L 07/24/2024 11:53 AM EDT [facility] Chloride, Plasma 105 97 - 107 mmol/L 07/24/2024 11:53 AM EDT [facility] CO2, Plasma 27 22 - 29 mmol/L 07/24/2024 11:53 AM EDT [facility] Anion Gap 9 6 - 16 mmol/L 07/24/2024 11:53 AM EDT [facility] Total Calcium, Plasma 9.7 8.9 - 10.2 mg/dL 07/24/2024 11:53 AM EDT [facility] Total Protein 7.1 6.3 - 7.9 g/dL 07/24/2024 11:53 AM EDT [facility] Albumin, Plasma 4.5 3.5 - 5.2 g/dL 07/24/2024 11:53 AM EDT [facility] AST, Plasma 16 10 - 35 U/L 07/24/2024 11:53 AM EDT [facility] Comment:Hemolyzed, result ma y be falsely increased. ALT, Plasma 15 10 - 35 U/L 07/24/2024 11:53 AM EDT [facility] Alkaline Phosphatase, Plasma 95 35 - 104 U/L 07/24/2024 11:53 AM EDT [facility] Total Bilirubin, Plasma 1.0 0.2 - 1.1 mg/dL 07/24/2024 11:53 AM EDT [facility] eGFRcr 97.5 mL/min/1.7 3m*2 07/24/2024 11:53 AM EDT [facility] Comment:Reported eGFRcr in m L/min/1.73m2 is based the CKD-EPI 2020 equation that does not use a race coefficient. Blood Venous blood specimen / Unknown Venipuncture / Unknown 07/24/2024 10:56 AM EDT 07/24/2024 11:22 AM EDT us Mk Pastrana MD LAB BLOOD ORDERABLES Final Re sult [facility] [address] [place] [address] * (ABNORMAL) CBC and Differential (07/24/2024 10:56 AM EDT) WBC Count 3.48(L) 3.70 - 10.30 10*3/uL LAB HEMATOLOGY METHOD 07/24/2024 11:11 AM EDT [facility] RBC Count 4.22 3.90 - 5.20 10*6/uL LAB HEMATOLOGY METHOD 07/24/2024 11:11 AM EDT [facility] HGB 12.8 11.2 - 15.7 g/dL LAB HEMATOLOGY METHOD 07/24/2024 11:11 AM EDT [facility] HCT 37.3 34.0 - 45.0 % LAB HEMATOLOGY METHOD 07/24/2024 11:11 AM EDT [facility] Platelet Count 103(L) 155 - 369 10*3/uL LAB HEMATOLOGY METHOD 07/24/2024 11:11 AM EDT [facility] MCV 88 79 - 98 fL LAB HEMATOLOGY METHOD 07/24/2024 11:11 AM EDT [facility] MCH 30.3 26.0 - 32.0 pg LAB HEMATOLOGY METHOD 07/24/2024 11:11 AM EDT [facility] MCHC 34.3 30.7 - 35.5 g/dL LAB HEMATOLOGY METHOD 07/24/2024 11:11 AM EDT [facility] RDW 16.5(H) 11.5 - 14.5 % LAB HEMATOLOGY METHOD 07/24/2024 11:11 AM EDT [facility] MPV 10.3 8.8 - 12.5 fL LAB HEMATOLOGY METHOD 07/24/2024 11:11 AM EDT [facility] nRBC 0.0 <=0.0 per 100 WBCs LAB HEMATOLOGY METHOD 07/24/2024 11:11 AM EDT [facility] Differential Type Automated LAB HEMATOLOGY METHOD 07/24/2024 11:11 AM EDT [facility] Neutrophils % 51 % LAB HEMATOLOGY METHOD 07/24/2024 11:11 AM EDT [facility] Lymphocytes % 45 % LAB HEMATOLOGY METHOD 07/24/2024 11:11 AM EDT [facility] Monocytes % 2 % LAB HEMATOLOGY METHOD 07/24/2024 11:11 AM EDT [facility] Eosinophils % 1 % LAB HEMATOLOGY METHOD 07/24/2024 11:11 AM EDT [facility] Basophils % 1 % LAB HEMATOLOGY METHOD 07/24/2024 11:11 AM EDT [facility] Immature Granulocytes % 0 % LAB HEMATOLOGY METHOD 07/24/2024 11:11 AM EDT [facility] Neutrophils Absolute 1.79 1.60 - 6.10 10*3/uL LAB HEMATOLOGY METHOD 07/24/2024 11:11 AM EDT [facility] Lymphocytes Absolute 1.56 1.20 - 3.90 10*3/uL LAB HEMATOLOGY METHOD 07/24/2024 11:11 AM EDT [facility] Monocytes Absolute 0.06(L) 0.30 - 0.90 10*3/uL LAB HEMATOLOGY METHOD 07/24/2024 11:11 AM EDT [facility] Eosinophils Absolute 0.04 0.00 - 0.50 10*3/uL LAB HEMATOLOGY METHOD 07/24/2024 11:11 AM EDT [facility] Basophils Absolute 0.02 0.00 - 0.10 10*3/uL LAB HEMATOLOGY METHOD 07/24/2024 11:11 AM EDT [facility] Immature Granulocytes Absolute 0.01 0.00 - 0.06 10*3/uL LAB HEMATOLOGY METHOD 07/24/2024 11:11 AM EDT [facility] Blood Venous blood specimen / Unknown Venipuncture / Unknown 07/24/2024 10:56 AM EDT 07/24/2024 11:09 AM EDT Narrative [facility] - 07/24/2024 11:11 AM EDT Therapeutic decision making should be based on absolute values, rather than percentages. us Mk Pastrana MD LAB BLOOD ORDERABLES Final Re sult [facility] [address] [place] [id number] * Quant Detection of BCR-ABL1 Major (p210) (SO) (07/24/2024 10:56 AM EDT) [facility] Quant BCR-ABL1, Major (p210), Source Whole Blood 07/29/2024 12:06 PM EDT [facility] Quant BCR-ABL1, Major (p210), Result High Positive 07/29/2024 12:06 PM EDT [facility] ([facility]) Quant BCR-ABL1, Major (p210), IS Percent See Note 07/29/2024 12:06 PM EDT [facility]) Quant BCR-ABL1, Major (p210), EER See Note 07/29/2024 12:06 PM EDT [facility] ([place]) Blood Venous blood specimen / Unknown Venipuncture / Unknown 07/24/2024 10:56 AM EDT 07/24/2024 11:19 AM EDT Narrative [facility] - 07/29/2024 12:06 PM EDT BCR::ABL1 fusion transcripts (p210 forms) were detected by RT-qPCR but were above the higher limit of quantitation for this assay. A BCR::ABL1 International Scale (IS) cannot be calculated. The result on the IS is greater than 50%. This result has been reviewed and approved by Charli Balderas M.D. INTERPRETIVE INFORMATION: Quantitative Detection of BCR::ABL1, Major Form(p210) This assay quantifies BCR::ABL1 transcripts (e13a2 and e14a2) for ongoing therapeutic monitoring and minimal residual disease detection. BCR::ABL1 translocations with BCR breakpoints in the major breakpoint cluster region result in the p210 fusion protein and are seen in nearly all cases of chronic myelogenous leukemia (CML) and in a few cases of acute lymphoblastic leukemia/lymphoma (ALL). To facilitate the interlaboratory comparison of findings and the assessment of molecular milestones (major molecular response or MMR), results are reported using the international scale (IS; see Zhu MC, et al. Leukemia. 2009;23:6494-1540). METHODOLOGY: Total RNA was isolated and converted to cDNA; BCR::ABL1 fusions were quantitated by real-time PCR amplification with primers designed to detect the major (p210) BCR::ABL1 breakpoint, including fusions between BCR exon 13 and ABL1 exon 2 (e13a2) and BCR exon 14 and ABL1 exon 2 (e14a2). Each PCR assay includes a standard curve for BCR::ABL1 and the ABL1 control. The normalized copy number(NCN)is calculated and converted to a value on the international scale (IS) using a validated reference sample (provided by Garo Stahl MD; see Richelle TROTTER et al. Blood. 2010;116:111-117) that was calibrated to a standard set of diagnostic specimens defined during the original trial of tyrosine kinase inhibitor therapy in CML patients (Ashlee CHÁVEZ, et al. NEJM. 2003;349:4660-6788). ANALYTICAL SENSITIVITY: Limit of quantification: 0.0032 percent international scale (%IS) LIMITATIONS: This assay does not detect transcripts resulting from a rare BCR::ABL1 rearrangement with a BCR exon 19 breakpoint that results in the p230 fusion protein, and does not detect the minor breakpoint (p190) or rare major fusion transcripts (p210) involving ABL1 other than exon 2. The results of this test must be interpreted in the context of morphologic and other relevant data, and should not be used alone for a diagnosis of malignancy. This test was developed and its performance characteristics determined by [employer] It has not been cleared or approved by the U.S. Food and Drug Administration. This test was performed in a CLIA-certified laboratory and is intended for clinical purposes. Authorized individuals can access the [facility] Enhanced Report with an [facility] Connect account using the following link. Your local lab can assist you in obtaining the patient report if you don't have a Connect account. [email or web address] Performed By: [employer] [address] [place] [address] Organizational Consultant: Sunil Gomez MD, PhD CLIA Number: [id number] Mk Pastrana MD LAB BLOOD ORDERABLES Final Re sult [employer] ([facility]) [address] [place] [address] documented in this encounter Visit Diagnoses Diagnosis CML (chronic myelocytic leukemia) (CMS/HCC)- Primary Chronic myeloid leukemia, without mention of having achieved remission Hyperbilirubinemia Disorders of bilirubin excretion Encounter for antineoplastic chemotherapy documented in this encounter Care Teams Printing Plate Maker Relationship Specialty Start Date End Date Willi Frost MD [address] [place], [place] [address]ther [facility] [address] [place] [address] PCP - General 06/11/24 documented as of this encounter
--- OUTSIDE RECORDS SUMMARY | 2024-08-20 09:00 | XMS_ITS | Encounter Summary ---
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) (SO) Mk Pastrana MD [address] [facility] [address] [place] [phone] Phone: tel: fax: Referral ID Status Reason Start Date Expiration Date Visits Re quested Visits Authorized [id number] Closed 07/30/2024 01/29/2026 1 1 Encounter Details Date Type Department Care Team (Late st Contact Info) Description 08/20/2024 9:00 AM EDT Clinical Support [facility] Hematology/BMT and Cellular Therapy Program [address] [place] [place] [phone] Social History Tobacco Use Types Packs/Day Years [...] Upcoming Encounters Date Type Department Care Team ([facility] st Contact Info) Description 09/25/2024 10:30 AM EDT Clinical Support [facility] Hematology/BMT and Cellular Therapy Program [address] [phone] 09/25/2024 11:00 AM EDT Office Visit [facility] Hematology/BMT and Cellular Therapy Program [address] [phone] Elena Ledezma, PARTS SALVAGER [address] [facility] [address] [place] [phone] 09/25/2024 2:00 PM EDT Appointment [facility] Echo 800 [facility] 2nd [place] [address] 09/25/2024 3:00 PM EDT Appointment [facility] Pulmonary Function Testing [address] [place] [address] 10/01/2024 1:00 PM EDT Clinical Support [facility] Hematology/BMT and Cellular Therapy Program [address] [phone] 10/01/2024 2:00 PM EDT Office Visit [facility] Hematology/BMT and Cellular Therapy Program [address] [phone] 10/03/2024 8:30 AM EDT Clinical Support [facility] Hematology/BMT and Cellular Therapy Program [address] [phone] 10/03/2024 9:00 AM EDT Procedure Visit [facility] Hematology/BMT and Cellular Therapy Program [address] [phone] Bhavana Bella, PARTS SALVAGER [address] [facility] [address] [place] [phone] 10/10/2024 Hospital Encounter [facility] Inpatient [facility] [address] [place] [address] Mk Pastrana MD [address] [facility] [address] [place] [phone] documented as of this encounter Visit Diagnoses Not on filedocumented in this encounter Care Teams Armoring Machine Operator Relationship Specialty Start Date End Date Willi Frost MD [address] [place] [address] [address] [place] [address] PCP - General 06/11/24 documented as of this encounter
--- OUTSIDE RECORDS SUMMARY | 2024-08-20 09:30 | XMS_ITS | Encounter Summary ---
Author Organization [facility] Address [address] [place] [address] Care Team Providers Care Milieu Coordinator Name Role Phone Willi Frost MD Primary Care Provider [phone] Reason for Referral * Imaging (Routine) - Closed Specialty Diagnoses / Procedures Referred By Contac t Referred To Contact Radiology Diagnoses CML (chronic myelocytic leukemia) (CMS/HCC) Hyperbilirubinemia Hepatosplenomegaly Procedures US Abdomen Focused Region Liver, Spleen Mk Pastrana MD [address] [facility] [address] [place] [address] Phone: tel: fax: Referral ID Status Reason Start Date Expiration Date Visits Re quested Visits Authorized [id number] Closed 08/20/2024 02/19/2026 1 1 * Genetic Testing (Routine) - Pending Review Specialty Diagnoses / Procedures Referred By Contac t Referred To Contact Lab Diagnoses CML (chronic myelocytic leukemia) (CMS/HCC) Procedures Myeloid Focused Panel, 50 gene Mk Pastrana MD [address] [facility] [address] [address] Phone: tel: fax: Referral ID Status Reason Start Date Expiration Date V isits Requested Visits Authorized [id number] Pending Review 08/20/2024 02/19/2026 1 1 * Genetic Testing (Routine) - Closed Specialty Diagnoses / Procedures Referred By Akosua t Referred To Contact Lab Diagnoses CML (chronic myelocytic leukemia) ([facility]/HCC) Procedures Cytogenetics Testing, Oncology Mk Pastrana MD [address] [address] Phone: tel: fax: Referral ID Status Reason Start Date Expiration Date Visits Re quested Visits Authorized [id number] Closed 08/20/2024 02/19/2026 1 1 * Genetic Testing (Routine) - Authorized Specialty Diagnoses / Procedures [facility] Referred To Contact Lab Diagnoses CML (chronic myelocytic leukemia) ([facility]) Procedures Leukemia/Lymphoma - Immunophenotyping by Flow Cytometry Mk Pastrana MD [address] [address] Phone: tel: fax: Referral ID Status Reason Start Date Expiration Date V isits Requested Visits Authorized [id number] Authorized 08/20/2024 02/19/2026 1 1 * Genetic Testing (Routine) - Authorized Specialty Diagnoses / Procedures [facility] Referred To Contact Lab Diagnoses CML (chronic myelocytic leukemia) ([facility]/HCC) Procedures Bone marrow exam Mk Pastrana MD [address] [address] Phone: tel: fax: Referral ID Status Reason Start Date Expiration Date V isits Requested Visits Authorized [id number] Authorized 08/20/2024 02/19/2026 1 1 * Clinic-Administered Medication (Routine) - Pending Review Specialty Diagnoses / Procedures Referred By Contac t Referred To Contact Mk Pastrana MD [address] [address] Phone: tel: fax: Referral ID Status Reason Start Date Expiration Date V isits Requested Visits Authorized [id number] Pending Review 08/20/2024 02/19/2026 1 1 Reason for Visit * Reason Comments CML follow up * Genetic Testing (Routine) - Closed Specialty Diagnoses / Procedures Referred By Akosua linda Referred To Contact Lab Diagnoses CML (chronic myelocytic leukemia) (CMS/HCC) Procedures Quant Detection of BCR-ABL1 Major (p210) (SO) Mk Pastrana MD [address] [address] Phone: tel: fax: Referral ID Status Reason Start Date Expiration Date Visits Re quested Visits Authorized [id number] Closed 07/30/2024 01/29/2026 1 1 Encounter Details Date Type Department Care Team (Latest Contact Info) Description 08/20/2024 9:30 AM EDT Office Visit [facility] Hematology/BMT and Cellular Therapy Program [address] [place] [phone] Mk Pastrana MD [address] [address] Encounter for antineoplastic chemotherapy (Primary [...] : 1970 REFERRING PHYSICIAN: Mk Pastrana MD [address] [place] [phone] Encounter Date: 08/20/2024 Patient Care Team: Willi Frost MD as PCP - General Chief Complaint Patient presents with CML follow up Hematologic History Cancer Staging No matching staging information was found for the patient. Amita Ortiz is a 54 y.o. who was referred to me to establish care for the treatment of CML. Current Treatment Regimen: Asciminib 40 mg/day History of Present Illness: 06/09/23 - Peripheral blood flow cytometry performed in [place] for leukocytosis revealed 3% myeloblasts with maturing [...] lesions 06/15/23 - Bone marrow biopsy in [place] was consistent with chronic myeloid leukemia with [...] mg p.o. nightly. 10/2023 - Relocated to [facility] and established care with Fredrick Bateman in [place], [place], for hematology/oncology follow-up. By that point, the patient had been on nilotinib 300 mg p.o. twice daily for several weeks. CBC with differential was normal. BCR-ABL testing on peripheral bloodrevealed PCR positivity of 26.98% (b2a2 transcript), 17.66% (B3 A2 transcript, [id number]), and 0.0403% (ela2, [id number] transcript). The recommendation was to continue current therapy. 11/22/23 - Transferred care to [facility] hematology/oncology. The recommendation was to continue therapy [...] 60 tablet, Rfl: 2 Current Facility-Administered Medications: filgrastim-sndz (ZARXIO) injection 300 mcg, 300 mcg, [...] Assessment/Plan Accelerated-phase chronic myeloid leukemia: Ms. 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 After relocating to [place] in October 2023, she established care locally [...] edema. I also discussed the risk of ecbka-gpaycj-xhhb disease (acute or chronic), which may require [...] reviewing results, and documenting. Mk Pastrana M.D. [employer] Division of Hematology/BMT [facility] * Progress Notes - Jojo Iyer, VernellD - 08/20/2024 9:30 AM EDT Pharmacy Hematology/Oncology [...] 150 mgQPM. She transferred her care to [place] in October 2023 and was found have [...] 10/2023: 26.98% b2a2 transcript, 17.66% b3a2 transcript ([id number]) and 0.0403 P190 minor. 01/2024: b2a2 22.48%, [...] Care Team (Late st Contact Info) Description 09/25/2024 10:30 AM EDT Clinical Support [facility] Hematology/BMT and Cellular Therapy Program [address] [place] [address] 09/25/2024 11:00 AM EDT Office Visit [facility] Hematology/BMT and Cellular Therapy Program [address] [phone] Elena Ledezma, [employer]MENT OPERATOR [address] [facility] [address] [place] [phone] 09/25/2024 2:00 PM EDT Appointment [facility] Echo 800 [facility] 2nd [place] [address] 09/25/2024 3:00 PM EDT Appointment [facility] Pulmonary Function Testing [address] [place] [address] 10/01/2024 1:00 PM EDT Clinical Support [facility] Hematology/BMT and Cellular Therapy Program [address] [phone] 10/01/2024 2:00 PM EDT Office Visit [facility] Hematology/BMT and Cellular Therapy Program [address] [place] [phone] 10/03/2024 8:30 AM EDT Clinical Support [facility] Hematology/BMT and Cellular Therapy Program [address] [place] [phone] 10/03/2024 9:00 AM EDT Procedure Visit [facility] Hematology/BMT and Cellular Therapy Program [address] [place] [phone] Bhavana Bella, [employer] EQUIPMENT OPERATOR [address] [facility] [address] [phone] 10/10/2024 Hospital Encounter [facility] A Inpatient [facility] [address] [place] [address] Mk Pastrana MD [address] [facility] [address] [address] Scheduled Orders Name Type Priority Associated Diagnoses Order Schedule Bone marrow exam Pathology and Cytology Routine CML (chronic myelocytic leukemia) (CMS/HCC) Expected: 08/20/2024 (Approximate), Expires: 02/20/2026 Leukemia/Lymphoma - Immunophenotyping by Flow Cytometry Lab Routine CML (chronic myelocytic leukemia) ([facility]/HCC) Expected: 08/20/2024 (Approximate), Expires: 02/20/2026 Cytogenetics Testing, Oncology Lab Routine CML (chronic myelocytic leukemia) ([facility]/HCC) Expected: 08/20/2024 (Approximate), Expires: 02/20/2026 Myeloid Focused Panel, 50 gene Lab Routine CML (chronic myelocytic leukemia) ([facility]/HCC) Expected: 08/20/2024 (Approximate), Expires: 02/20/2026 documented as of this encounter Procedures Procedure Name Priority Date/Time Associated Diagnosis Comments QUANT DETECTION OF BCR-ABL1 MAJOR (P210) (SO) Routine 08/20/2024 9:00 AM EDT CML (chronic myelocytic leukemia) ([facility]/HCC) CBC WITH AUTO DIFFERENTIAL Routine 08/20/2024 9:00 AM EDT CML (chronic myelocytic leukemia) ([facility]) PHOSPHORUS, PLASMA Routine 08/20/2024 9: 00 AM EDT CML (chronic myelocytic leukemia) ([facility]/HCC) MAGNESIUM, PLASMA Routine 08/20/2024 9:0 0 AM EDT CML (chronic myelocytic leukemia) ([facility]/HCC) LIPASE, PLASMA Routine 08/20/2024 9:00 AM EDT CML (chronic myelocytic leukemia) ([facility]/HCC) LACTATE DEHYDROGENASE, PLASMA Routine 08/20/2024 9:00 AM EDT CML (chronic myelocytic leukemia) ([facility]/HCC) AMYLASE, PLASMA Routine 08/20/2024 9:00 AM EDT CML (chronic myelocytic leukemia) ([facility]/HCC) COMPREHENSIVE METABOLIC PANEL, PLASMA Routine 08/20/2024 9:00 AM EDT CML (chronic myelocytic leukemia) ([facility]/HCC) documented in this encounter Results * US Abdomen Focused Region Liver, Spleen [...] ( e 7 mm) - Surgical consult. https://pubs.rsna.org/doi/abs/10.1148/radiol.536709. CRITICAL RESULT: No. COMMUNICATION: Per this written [...] - Size - 4 mm Morphology: Pedunculated vsjh-gg-iox-wall or thin stalk Focal adjacent wall thickening >4mm: not present Polyp # 2 - Size - 4 mm Morphology: Pedunculated apak-ca-nuv-wall or thin stalk Focal adjacent wall thickening [...] - Size - 4 mm Morphology: Pedunculated pwdc-at-yev-wall or thin stalk Focal adjacent wall thickening >4mm: not present Polyp # 2 - Size - 4 mm Morphology: Pedunculated phiv-po-dqd-wall or thin stalk Focal adjacent wall thickening [...] ( e 7 mm) - Surgical consult. https://pubs.rsna.org/doi/abs/10.1148/radiol.776992. CRITICAL RESULT: No. COMMUNICATION: Per this written report. By electronically signing this report, I, the attending physician, attestthat I have personally reviewed the images/data for [...] Source Whole Blood 08/26/2024 3:50 PM EDT [facility] ([employer]) Quant BCR-ABL1, Major (p210), Result Detected(A ) 08/26/2024 3:50 PM EDT [facility] ([employer]) Quant BCR-ABL1, Major (p210), IS Percent 31.5955 % 08/26/2024 3:50 PM EDT [facility] ([employer]) Quant BCR-ABL1, Major (p210), EER See Note 08/26/2024 3:50 PM EDT [facility] ([employer]) Blood Venous blood specimen / Unknown Venipuncture / Unknown 08/20/2024 9:00 AM EDT 08/20/2024 9:16 AM EDT Narrative [facility] ([employer]) - 08/26/2024 3:50 PM EDT This result [...] (IS; see Zhu MC, et al. Leukemia. 2009;23:1782-1308). METHODOLOGY: Total RNA was isolated and converted [...] in CML patients (Ashlee CHÁVEZ, et al. NEJ. 2003;349:7738-0191). ANALYTICAL SENSITIVITY: Limit of quantification: 0.0032 percent [...] developed and its performance characteristics determined by [employer]. It has not been cleared or approved by the U.S. Food and Drug Administration. This test was performed in a CLIA-certified laboratory and is intended for clinical purposes. Authorized individuals can access the [facility] Enhanced Report with an [facility] Connect account using the following link. Your local lab can assist you in obtaining the patient report if you don't have a Connect account. [email or web address] Performed By: [facility] [address] [place] [id number] Document Imaging Manager: Sunil Gomez MD, PhD CLIA Number: [id number] Mk Pastrana MD LAB BLOOD ORDERABLES Final Re sult [facility] [address] [place] [phone] * Lipase, Plasma (08/20/2024 9:00 AM EDT) Lipase, Plasma 28 19 - 63 U/L 08/20/2024 10:02 AM EDT [facility] Blood Venous blood specimen / Unknown Venipuncture / Unknown 08/20/2024 9:00 AM EDT 08/20/2024 9:17 AM EDT Mk Pastrana MD LAB BLOOD ORDERABLES Final Re sult Performing Organization Address City/[facility]/ZIP Co de Phone Number [facility] [address] [place] [address] * Phosphorus, Plasma (08/20/2024 9:00 AM EDT) Phosphorus, Plasma 3.4 2.5 - 4.5 mg/dL 08/20/2024 10:02 AM EDT [facility] Blood Venous blood specimen / Unknown Venipuncture / Unknown 08/20/2024 9:00 AM EDT 08/20/2024 9:17 AM EDT Mk Pastrana MD LAB BLOOD ORDERABLES Final Re sult Performing Organization Address City/[facility]/ZIP Co de Phone Number [facility] [address] [place] [address] * Amylase, Plasma (08/20/2024 9:00 AM EDT) Amylase 49 27 - 114 U/L 08/20/2024 10:02 AM EDT [facility] Blood Venous blood specimen / Unknown Venipuncture / Unknown 08/20/2024 9:00 AM EDT 08/20/2024 9:17 AM EDT Mk Pastrana MD LAB BLOOD ORDERABLES Final Re sult [facility] [address] [place] [address] * Magnesium, Plasma (08/20/2024 9:00 AM EDT) Magnesium, Plasma 2.2 1.9 - 2.4 mg/dL 08/20/2024 10:02 AM EDT [facility] Blood Venous blood specimen / Unknown Venipuncture / Unknown 08/20/2024 9:00 AM EDT 08/20/2024 9:17 AM EDT Mk Pastrana MD LAB BLOOD ORDERABLES Final Re sult Performing Organization Address City/[facility]/ZIP Co de Phone Number [facility] [address] [place] [address] * Lactate Dehydrogenase, Plasma (08/20/2024 9:00 AM EDT) LDH, Plasma 228 116 - 250 U/L 08/20/2024 10:02 AM EDT [facility] Blood Venous blood specimen / Unknown Venipuncture / Unknown 08/20/2024 9:00 AM EDT 08/20/2024 9:17 AM EDT Mk Pastrana MD LAB BLOOD ORDERABLES Final Re sult Performing Organization Address City/[facility]/ZIP Co de Phone Number [facility] [address] [place] [address] * (ABNORMAL) CBC and Differential (08/20/2024 9:00 AM EDT) [facility] WBC Count 2.38(L) 3.70 - 10.30 10*3/uL LAB HEMATOLOGY METHOD 08/20/2024 9:54 AM EDT [facility] RBC Count 4.06 3.90 - 5.20 10*6/uL LAB HEMATOLOGY METHOD 08/20/2024 9:54 AM EDT [facility] HGB 12.6 11.2 - 15.7 g/dL LAB HEMATOLOGY METHOD 08/20/2024 9:54 AM EDT [facility] HCT 36.5 34.0 - 45.0 % LAB HEMATOLOGY METHOD 08/20/2024 9:54 AM EDT [facility] Platelet Count 64(L) 155 - 369 10*3/uL LAB HEMATOLOGY METHOD 08/20/2024 9:54 AM EDT [facility] MCV 90 79 - 98 fL LAB HEMATOLOGY METHOD 08/20/2024 9:54 AM EDT [facility] MCH 31.0 26.0 - 32.0 pg LAB HEMATOLOGY METHOD 08/20/2024 9:54 AM EDT [facility] MCHC 34.5 30.7 - 35.5 g/dL LAB HEMATOLOGY METHOD 08/20/2024 9:54 AM EDT [facility] RDW 16.9(H) 11.5 - 14.5 % LAB HEMATOLOGY METHOD 08/20/2024 9:54 AM EDT [facility] MPV 10.3 8.8 - 12.5 fL LAB HEMATOLOGY METHOD 08/20/2024 9:54 AM EDT [facility] nRBC 0.0 <=0.0 per 100 WBCs LAB HEMATOLOGY METHOD 08/20/2024 9:54 AM EDT [facility] Differential Type Automated LAB HEMATOLOGY METHOD 08/20/2024 9:54 AM EDT [facility] Neutrophils % 36 % LAB HEMATOLOGY METHOD 08/20/2024 9:54 AM EDT [facility] Lymphocytes % 60 % LAB HEMATOLOGY METHOD 08/20/2024 9:54 AM EDT [facility] Monocytes % 2 % LAB HEMATOLOGY METHOD 08/20/2024 9:54 AM EDT [facility] Eosinophils % 2 % LAB HEMATOLOGY METHOD 08/20/2024 9:54 AM EDT [facility] Basophils % 0 % LAB HEMATOLOGY METHOD 08/20/2024 9:54 AM EDT [facility] Immature Granulocytes % 0 % LAB HEMATOLOGY METHOD 08/20/2024 9:54 AM EDT [facility] Neutrophils Absolute 0.86(LL) 1.60 - 6.10 10*3/uL LAB HEMATOLOGY METHOD 08/20/2024 9:54 AM EDT [facility] Lymphocytes Absolute 1.43 1.20 - 3.90 10*3/uL LAB HEMATOLOGY METHOD 08/20/2024 9:54 AM EDT [facility] Monocytes Absolute 0.05(L) 0.30 - 0.90 10*3/uL LAB HEMATOLOGY METHOD 08/20/2024 9:54 AM EDT [facility] Eosinophils Absolute 0.04 0.00 - 0.50 10*3/uL LAB HEMATOLOGY METHOD 08/20/2024 9:54 AM EDT [facility] Basophils Absolute 0.00 0.00 - 0.10 10*3/uL LAB HEMATOLOGY METHOD 08/20/2024 9:54 AM EDT [facility] Immature Granulocytes Absolute 0.00 0.00 - 0.06 10*3/uL LAB HEMATOLOGY METHOD 08/20/2024 9:54 AM EDT [facility] Blood Venous blood specimen / Unknown Venipuncture / Unknown 08/20/2024 9:00 AM EDT 08/20/2024 9:14 AM EDT Narrative [facility] - 08/20/2024 9:54 AM EDT Therapeutic decision making should be based on absolute values, rather than percentages. us Mk Pastrana MD LAB BLOOD ORDERABLES Final Re sult [facility] [address] [place] [address] * Comprehensive Metabolic Panel, Plasma (08/20/2024 9:00 AM EDT) Glucose, Plasma 90 74 - 99 mg/dL 08/20/2024 10:02 AM EDT [facility] BUN, Plasma 7 7 - 21 mg/dL 08/20/2024 10:02 AM EDT [facility] Creatinine, Plasma 0.70 0.60 - 1.10 mg/dL 08/20/2024 10:02 AM EDT [facility] BUN/Creatinine Ratio 10 08/20/2024 10:02 AM EDT [facility] Sodium, Plasma 141 136 - 145 mmol/L 08/20/2024 10:02 AM EDT [facility] Potassium, Plasma 4.2 3.6 - 4.9 mmol/L 08/20/2024 10:02 AM EDT [facility] Chloride, Plasma 104 97 - 107 mmol/L 08/20/2024 10:02 AM EDT [facility] CO2, Plasma 27 22 - 29 mmol/L 08/20/2024 10:02 AM EDT [facility] Anion Gap 10 6 - 16 mmol/L 08/20/2024 10:02 AM EDT [facility] Total Calcium, Plasma 9.5 8.9 - 10.2 mg/dL 08/20/2024 10:02 AM EDT [facility] Total Protein 6.8 6.3 - 7.9 g/dL 08/20/2024 10:02 AM EDT [facility] Albumin, Plasma 4.5 3.5 - 5.2 g/dL 08/20/2024 10:02 AM EDT [facility] AST, Plasma 25 10 - 35 U/L 08/20/2024 10:02 AM EDT [facility] ALT, Plasma 20 10 - 35 U/L 08/20/2024 10:02 AM EDT [facility] Alkaline Phosphatase, Plasma 97 35 - 104 U/L 08/20/2024 10:02 AM EDT [facility] Total Bilirubin, Plasma 0.5 0.2 - 1.1 mg/dL 08/20/2024 10:02 AM EDT [facility] eGFRcr 104.2 mL/min/1.7 3m*2 08/20/2024 10:02 AM EDT [facility] Comment:Reported eGFRcr in m L/min/1.73m2 is based the CKD-EPI 2020 equation that does not use a race coefficient. Blood Venous blood specimen / Unknown Venipuncture / Unknown 08/20/2024 9:00 AM EDT 08/20/2024 9:17 AM EDT us Mk Pastrana MD LAB BLOOD ORDERABLES Final Re sult [facility] [address] [place] [address] documented in this encounter Visit Diagnoses Diagnosis [...] (Back) documented in this encounter Care Teams Milieu Coordinator Relationship Specialty Start Date End Date iWlli Frost MD [facility] [address] [place] [address] PCP - General 06/11/24 documented as of this encounter
--- OUTSIDE RECORDS SUMMARY | 2024-08-28 08:29 | XMS_ITS | Encounter Summary ---
Author Organization [facility] Address [address] [place] [address] Care Team Providers Care Aircraft Electrician Name Role Phone Willi Frost MD Primary Care Provider [phone] Reason for Referral * Imaging (Routine) - Closed Specialty Diagnoses / Procedures Referred By Contac t Referred To Contact Radiology Diagnoses CML (chronic myelocytic leukemia) (CMS/HCC) Hyperbilirubinemia Hepatosplenomegaly Procedures US Abdomen Focused Region Liver, Spleen Mk Pastrana MD 800 [facility] [address] [address] Phone: tel: fax: Referral ID Status Reason Start Date Expiration Date Visits Re quested Visits Authorized [id number] Closed 08/20/2024 02/19/2026 1 1 Reason for Visit * Imaging (Routine) - Closed Specialty Diagnoses / Procedures Referred By Contadrián t Referred To Contact Radiology Diagnoses CML (chronic myelocytic leukemia) (CMS/HCC) Hyperbilirubinemia Hepatosplenomegaly Procedures US Abdomen Focused Region Liver, Spleen Mk Pastrana MD 800 [facility] [address] [address] Phone: tel: fax: Referral ID Status Reason Start Date Expiration Date Visits Re quested Visits Authorized [id number] Closed 08/20/2024 02/19/2026 1 1 Encounter Details Date Type Department Care Team (Latest Contact Info) Description 08/28/2024 8:29 AM EDT - 08/28/2024 11:59 PM EDT Hospital Encounter [facility] Ultrasound [address] [place] [address] CML (chronic myelocytic leukemia) (CMS/HCC); Hyperbilirubinemia; Hepatosplenomegaly [...] by mouth daily. 60 tablet 2 07/12/2024 documented as of this encounter Plan of Treatment Upcoming Encounters Date Type Department Care Team (Late st Contact Info) Description 09/25/2024 10:30 AM EDT Clinical Support [facility]BMT [facility] Cellular Therapy Program [address] [address] 09/25/2024 11:00 AM EDT Office Visit [facility]ology[facility]BMT and Cellular Therapy Program [address] [address] Elnea Ledezma, BEATER HEAD 800 [facility] [address] [place] [phone] 09/25/2024 2:00 PM EDT Appointment [facility] Echo 800 [facility] [address] [place] [address] 09/25/2024 3:00 PM EDT Appointment [facility] Pulmonary Function Testing [address] [place] [address] 10/01/2024 1:00 PM EDT Clinical Support [facility]ology/BMT and Cellular Therapy Program [address] [place] [address] 10/01/2024 2:00 PM EDT Office Visit [facility] Cellular Therapy [facility] [address] [place] [address] 10/03/2024 8:30 AM EDT Clinical Support [facility]ology[facility]BMT [facility] Cellular Therapy Program [address] [place] [address] 10/03/2024 9:00 AM EDT Procedure Visit [facility]ology/BMT and Cellular Therapy Program [address] [place] [address] Bhavana Bella, MARCY 800 [facility] [address] [place] [phone] 10/10/2024 Hospital Encounter [facility] Inpatient [facility] [address] [place] [address] Mk Pastrana MD 800 [facility] [address] [place] [phone] documented as of this encounter Procedures Procedure [...] with extremely low risk category based on U Gallbladder Polyp Consensus Conference Guidelines 2021. Please [...] ( e 7 mm) - Surgical consult. https://pubs.rsna.org/doi/abs/10.1148/radiol.302774. CRITICAL RESULT: No. COMMUNICATION: Per this written [...] - Size - 4 mm Morphology: Pedunculated ghdd-oe-wmf-wall or thin stalk Focal adjacent wall thickening >4mm: not present Polyp # 2 - Size - 4 mm Morphology: Pedunculated hoty-yc-cph-wall or thin stalk Focal adjacent wall thickening [...] - Size - 4 mm Morphology: Pedunculated ykoj-iw-fhw-wall or thin stalk Focal adjacent wall thickening >4mm: not present Polyp # 2 - Size - 4 mm Morphology: Pedunculated tzpf-kh-dkl-wall or thin stalk Focal adjacent wall thickening [...] ( e 7 mm) - Surgical consult. https://pubs.rsna.org/doi/abs/10.1148/radiol.297046. CRITICAL RESULT: No. COMMUNICATION: Per this written report. By electronically signing this report, I, the attending physician, gilmaat I have personally reviewed the images/data for the aboveexamination(s) and agree with the final edited report. Drafted by Yovanny Guillaume MD on 08/28/2024 9:02 AM Final report signed by Mariza Koo MD on 08/28/2024 9:17 AM Mk Pastrana MD IM US PROCEDURES Final Resul t documented in [...] documented as of this encounter Care Teams Aircraft Electrician Relationship Specialty Start Date End Date Willi Frost MD [address] [place] [address] PCP - General 06/11/24 documented as of this encounter
--- OUTSIDE RECORDS SUMMARY | 2024-08-28 14:00 | XMS_ITS | Encounter Summary ---
Author Organization [facility] Address [address] [place] [address] Care Team Providers Care Nut Cracker Name Role Phone Willi Frost MD Primary Care Provider [phone] Reason for Visit * Consultation (Routine) - Closed Specialty Diagnoses / Procedures Referred By Contac t Referred To Contact Dentistry Diagnoses CML (chronic myelocytic leukemia) (CMS/HCC) Mk Pastrana MD 800 [facility] Cancer [address] [address] Phone: tel: fax: [facility] Adult Dentistry [address] [address] Phone: tel: fax: Referral ID Status Reason Start Date Expiration Date V isits Requested Visits Authorized [id number] Closed Specialty Services Required 07/09/2024 01/08/2026 1 1 Encounter Details Date Type Department Care Team (Late st Contact Info) Description 08/28/2024 2:00 PM EDT Office Visit [facility] Adult Dentistry [address] [place] [address] Michelle Garza [address] [place] [phone] CML (chronic myelocytic leukemia) (CMS/HCC) Social History [...] - 08/28/2024 2:00 PM EDT Adult Dentistry [facility] Subjective: 54 y.o. female presents to [...] Upcoming Encounters Date Type Department Care Team ([facility] st Contact Info) Description 09/25/2024 10:30 AM EDT Clinical Support [facility] Hematology/BMT and Cellular Therapy Program [address] [place] [phone] 09/25/2024 11:00 AM EDT Office Visit [facility] Hematology/BMT and Cellular Therapy Program [address] [place] [phone] Elena Ledezma, MARCY 800 [facility] [address] [place] [phone] 09/25/2024 2:00 PM EDT Appointment [facility] Echo 800 [facility] [address] [place] [address] 09/25/2024 3:00 PM EDT Appointment [facility] H Pulmonary Function Testing [address] [place] [address] 10/01/2024 1:00 PM EDT Clinical Support [facility] Hematology/BMT and Cellular Therapy Program [address] [address] 10/01/2024 2:00 PM EDT Office Visit [facility]ematology/BMT and Cellular Therapy Program [address] [place] [phone] 10/03/2024 8:30 AM EDT Clinical Support [facility]ology/BMT and Cellular Therapy Program [address] [place] [phone] 10/03/2024 9:00 AM EDT Procedure Visit [facility] Hematology/BMT and Cellular Therapy Program [address] [place] [phone] Bhavana Bella, MARCY 800 [facility] [address] [place] [phone] 10/10/2024 Hospital Encounter [facility] A Inpatient [facility] [address] [place] [phone] Mk Pastrana MD 800 [facility] [address] [place] [phone] documented as of this encounter Procedures [...] documented as of this encounter Care Teams Nut Cracker Relationship Specialty Start Date End Date Willi Frost MD [address] [place] [address] PCP - General 06/11/24 documented as of this encounter
--- OUTSIDE RECORDS SUMMARY | 2024-09-10 11:00 | XMS_ITS | Encounter Summary ---
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) (SO) Elena Ledezma, APPLICATION TECHNICAL DESIGNER 800 [facility] [address] [place] [phone] Phone: tel: fax: Referral ID Status Reason Start Date Expiration Date Visits Re quested Visits Authorized [id number] Closed 09/06/2024 03/08/2026 1 1 Encounter Details Date Type Department Care Team ([facility] st Contact Info) Description 09/10/2024 11:00 AM EDT Clinical Support [facility] Hematology/BMT and Cellular Therapy Program 750 [facility], [address] [place] [address] [place] [phone] Tony Foreman, RN Social History Tobacco Use [...] Upcoming Encounters Date Type Department Care Team ([facility] st Contact Info) Description 09/25/2024 10:30 AM EDT Clinical Support [facility] Hematology/BMT and Cellular Therapy Program [address] [place] [address] 09/25/2024 11:00 AM EDT Office Visit [facility] Hematology/BMT and Cellular Therapy Program [address] [phone] Elena Ledezma, APPLICATION TECHNICAL DESIGNER 800 [facility] [address] [place] [phone] 09/25/2024 2:00 PM EDT Appointment [facility] Echo 800 [facility] [address] [place] [address] 09/25/2024 3:00 PM EDT Appointment [facility] Pulmonary Function Testing [address] [place] [address] 10/01/2024 1:00 PM EDT Clinical Support [facility] Hematology/BMT and Cellular Therapy Program [address] [phone] 10/01/2024 2:00 PM EDT Office Visit [facility] Hematology/BMT and Cellular Therapy Program [address] [place] [phone] 10/03/2024 8:30 AM EDT Clinical Support [facility] Hematology/BMT and Cellular Therapy Program [address] [phone] 10/03/2024 9:00 AM EDT Procedure Visit [facility] Hematology/BMT and Cellular Therapy Program [address] [place] [phone] Bhavana Bella, APPLICATION TECHNICAL DESIGNER 800 [facility] [address] [place] [phone] 10/10/2024 Hospital Encounter [facility] A Inpatient [facility] [address] [place] [address] Mk Pastrana MD 800 [facility] [address] [place] [phone] documented as of this encounter Visit Diagnoses Not on filedocumented in this encounter Additional Health Concerns Assessment Noted Time A Body Mass Index follow-up plan has been documented for the patient 08/28/2024 5:28 PM EDT documented as of this encounter Care Teams Pin Or Clip Fastener Relationship Specialty Start Date End Date Willi Frost MD [address] [place] [address] [address] [place] [address] PCP - General 06/11/24 documented as of this encounter
--- OUTSIDE RECORDS SUMMARY | 2024-09-10 11:30 | XMS_ITS | Encounter Summary ---
Author Organization [facility] Address [address] [place] [address] Care Team Providers Care Personnel Manager Name Role Phone Willi Frost MD Primary Care Provider + [phone] Reason for Referral * Genetic Testing (Routine) - Closed Specialty Diagnoses / Procedures Referred By Ryanac alexei Referred To Contact Lab Diagnoses CML (chronic myelocytic leukemia) (CMS/HCC) Procedures Quant Detection of BCR-ABL1 Major (p210) (SO) Elena Ledezma APRN [address] [phone] Phone: tel: fax: Referral ID Status Reason Start Date Expiration Date Visits Re quested Visits Authorized [id number] Closed 09/06/2024 03/08/2026 1 1 Reason for Visit * Genetic Testing (Routine) - Closed Specialty Diagnoses / Procedures Referred By Contac t Referred To Contact Lab Diagnoses CML (chronic myelocytic leukemia) ([facility]/HCC) Procedures Quant Detection of BCR-ABL1 Major (p210) (SO) Elena Ledezma APRN [address] [address] Phone: tel: fax: Referral ID Status Reason Start Date Expiration Date Visits Re quested Visits Authorized [id number] Closed 09/06/2024 03/08/2026 1 1 Encounter Details Date Type Department Care Team (Late st Contact Info) Description 09/10/2024 11:30 AM EDT Office Visit [facility] CC Hematology/BMT and Cellular Therapy Program 750 [facility] [place] [phone] Bhavana Bella APRN 800 [facility] [address] [place] [phone] CML (chronic myelocytic leukemia) (CMS/HCC) (Primary Dx) Social History Tobacco Use Types Packs/Day Years [...] Sign Reading Time Taken Comments Blood Pressure 109/75 09/10/2024 11:52 AM EDT Pulse - - Temperature 36.5 C (97.7 F) 09/10/2024 11:52 AM EDT Respiratory Rate 17 09/10/2024 11:5 2 AM EDT Oxygen Saturation 97% 09/10/2024 11: 52 AM EDT Inhaled Oxygen Concentration - - Weight 61.2 kg (134 lb 14.4 oz) 025 11:52 AM EDT Height 165.1 cm (5' 5 ) 09/10/2024 11:5 2 AM EDT Body Mass Index 22.45 09/10/2024 11:52 AM EDT documented in this encounter Miscellaneous Notes * Progress Notes - Bhavana Bella APRN - 09/10/2024 11:30 AM EDT Patient Information Patient Name: Amita Ortiz Date of : 1970 REFERRING PHYSICIAN: Elena Ledezma, MARCY 800 [facility] [address] [place] [phone] Encounter Date: 09/10/2024 Patient Care Team: Willi Frost MD as PCP - General No chief complaint on file. Hematologic History Cancer Staging No matching staging information was found for the patient. Amita Ortiz is a 54 y.o. who presents today for follow-up for the treatment of CML. Current Treatment Regimen: Asciminib 40 mg/day History of Present Illness: 06/09/23 - Peripheral blood flow cytometry performed in [place] for leukocytosis revealed 3% myeloblasts with maturing [...] lesions 06/15/23 - Bone marrow biopsy in [place] was consistent with chronic myeloid leukemia with [...] mg p.o. nightly. 10/2023 - Relocated to [facility] and established care with Fredrick Bateman in [place], [place], for hematology/oncology follow-up. By that point, the patient had been on nilotinib 300 mg p.o. twice daily for several weeks. CBC with differential was normal. BCR-ABL testing on peripheral bloodrevealed PCR positivity of 26.98% (b2a2 transcript), 17.66% (B3 A2 transcript, [id number]), and 0.0403% (ela2, [id number] transcript). The recommendation was to continue current therapy. 11/22/23 - Transferred care to [facility] hematology/oncology. The recommendation was to continue [...] for p210 copy 08/20/2024- BCR-ABL1 PCR is 31.595%. 09/10/2024--pending. HOLD asciminib 40 mg/day due to worsening neutropenic and thrombocytopenic today. Give GCSF today. Past Medical, Surgical, Family and Social History [...] mouth daily., Disp: 60 tablet, Rfl: 2 cetirizine (ZyrTEC) 10 MG tablet, Take 1 tablet by mouth daily., Disp: 7 tablet, Rfl: 0 No current facility-administered medications for this visit. Facility-Administered Medications Ordered in Other Visits: Blood Therapy Plan Authorization, , , Once (Auth Referral), Bhavana Bella APRN filgrastim-sndz (ZARXIO) injection 300 mcg, 300 mcg, Subcutaneous, Once, Bhavana Bella APRN Subjective Interval History: She is overall feeling well. She is taking ascminib as prescribed. Denies fever or infection, shortness of breath, n/v/d. Having dental extraction tomorrow. Has amoxicillin to take before. Last time she got G-CSF had mild bone pain and a lot of fatigue. Review of Systems: 14- point ROS is reviewed and negative except in HPI. Objective Performance Status ECOG 1 KPS 90 Visit Vitals BP 109/75 Temp 36.5 ??C (97.7 ??F) Resp 17 BSA: Estimated body surface area is 1.68 meters squared as calculated from the following: Height as of this encounter: 1.651 m (5' 5 ). Weight as of this encounter: 61.2 kg (134 lb 14.4 oz). EXAM General: No acute distress; sitting [...] personally Lab Results Component Value Date WBC 1.88 (L) 09/10/2024 RBC 3.51 (L) 09/10/2024 HGB 11.2 09/10/2024 HCT 33.1 (L) 09/10/2024 MCV 94 09/10/2024 MCHC 33.8 09/10/2024 RDW 17.2 (H) 09/10/2024 PLT 37 (L) 09/10/2024 MPV 9.9 09/10/2024 Lab Results Component Value Date BUN 11 09/10/2024 CL 106 09/10/2024 NA 140 09/10/2024 K 4.5 09/10/2024 TP 6.6 09/10/2024 AST 16 09/10/2024 ALT 11 09/10/2024 I visualized the recent imaging and discussed [...] accelerated chronic myeloidleukemia (CML), initially diagnosed in [place] on June 15, 2023, following evaluation for [...] the evening by mid-August. After relocating to [place] in October 2023, she established care locally [...] continued to show high p210 transcript levels. Her BCR-ABL1 PCR on 08/20/2024 was 31.595%. Today 09/10/2024: CBC demonstrating worsening thrombocytopenia (plt 37) and neutropenic (ANC 350). BCR/ABL1 PCR is pending. Plan: - Will HOLD asciminib 40 mg/day due to worsening neutropenic and thrombocytopenic today. Give GCSF today. - Monitor CBC weekly - RTC in 2 weeks for repeat labs, discuss restarting asiminib vs switch to ponatinib if BCR/ABL1 remains elevated, especially with cytopenias - Given persistent molecular and cytogenetic disease, the presence of high-risk features at diagnosis, additional somatic mutations, and suboptimal response and intolerance to multiple TKIs, Ms. Ortiz is being evaluated for of allogeneic hematopoietic stem cell transplantation. One 01/17 donor was identified and will be activated Allogenic transplant discussion: Dr. Pastrana previously discussed with the patient and her daughter the significance of her diagnoses, as well as the expectations associated with high- dose chemotherapy and allogenic stem cell transplantation. I spent nearly an hour reviewing the risks, benefits, alternatives, and expectations of allogenic stem cell transplantation. Explained that four conditions must be met for the patient to beeligible for allogenic stem cell transplantation: Her disease must be well controlled. She must be in sufficient health to tolerate the intensive treatment. She must have a strong support system. A suitable donor must be identified. He reviewed the anticipated side effects, including: prolonged hospitalization, potential need for blood transfusions (along with associated risks), increased risk of infection, increased risk of bleeding, fatigue, anorexia, probable weight loss, alopecia, mucositis, diarrhea and other gastrointestinal side effects, and peripheral edema. I also discussed the risk of zwrwh-[id number] disease (acute or chronic), which may require long-term immunosuppressive therapy and significantly increase therisk of infection. They understand that full recovery after transplantation may take approximately 6-12 months following hospital discharge. He emphasized the need for frequent outpatient clinic visits during the posttransplant period, during which time there will be heightened infection risk, and strict activity and dietary restrictions will be recommended. Thrombocytopenia and neutropenia related to chemotherapy Monitor CBC weekly PLT transfusion today for planned dental extraction tomorrow (consent obtained) G-CSF today. Reports fatigue and mild bone pain from previous G-CSF. Discussed may take zyrtec. History of HCV. PCR is negative. Tobacco use. We counseled her on smoking cessation and has quit smoking. Hyperbilirubinemia. Was mildly elevated at 1.2 mg/dL. Could be related to nilotinib. Will monitor. Now normalized. ALT, AST, TB, ALP, albumin and total protein are all normal. US ABD 08/28/2024 Liver:The liver is normal in echogenicity and echotexture. No focal lesions are detected. No suspicious focal lesions are detected. Hepatosplenomegaly. Likely related to her CML. Seen upon time of diagnosis. US ABD Spleen: The spleen is normal in size measuring 10.5 cm. Full tooth extraction planned 09/11/2024 Dental prophylaxis with Amocillin 2 gr prior to procedure. Platelet transfusion today. RTC 2 weeks Bhavana Bella APRN HEMATOLOGY/BMT AND CELLULAR THERAPY PROGRAM [address] [facility] [phone] SERVICE PAGER [phone]/Code Rebel CHAT 30 minutes was spent on this encounter; including preparing to see the patient, which involved review/interpretation of diagnostics and reports; obtaining and/or reviewing separately obtained history; performing appropriate physical exam; ordering/scheduling medications, tests or procedures; communicating findings and counseling/educating the patient, family and/or caregiver; documentation in EMR; and care coordination. * Progress Notes - Jojo Iyer, PharmD - 09/10/2024 11:30 AM EDT Pharmacy Hematology/Oncology Treatment Note Amita [...] 150 mgQPM. She transferred her care to [place] in October 2023 and was found have [...] BCR-Abl remains elevated will transition to ponatinib. 09/10/24: ANC continues to drop < 1000 and platelets < 50k. Will hold asciminib therapy and monitor labs weekly. Today's Wt: Wt Readings from Last 1 Encounters: 09/10/24 61.3 kg (135 lb 2.3 oz) Dosing Wt: n/a Dosing Ht: n/a DosingBSA: n/a Recent Labs: Lab Results Component Value Date WBC 1.88 (L) 09/10/2024 HGB 11.2 09/10/2024 HCT 33.1 (L) 09/10/2024 MCV 94 09/10/2024 PLT 37 (L) 09/10/2024 Lab Results Component Value Date GLUCOSE 67 (L) 09/10/2024 CALCIUM 9.1 09/10/2024 NA 140 09/10/2024 K 4.5 09/10/2024 CO2 22 09/10/2024 CL 106 09/10/2024 BUN 11 09/10/2024 CREATININE 0.60 09/10/2024 Lab Results Component Value Date ALT 11 09/10/2024 AST 16 09/10/2024 ALKPHOS 89 09/10/2024 BILITOT 0.5 09/10/2024 Lab Results Component Value Date NEUTROABS 0.35 (LL) 09/10/2024 Lab Results Component Value Date MG 2.1 09/10/2024 No results found for: TSH No results found for: URINEPRO Vitals: Visit Vitals BP 109/75 Temp 36.5 ??C (97.7 ??F) Resp 17 Other Relevant Monitorin04/30/24 Hep C Ab (+) 04/30/24 Hep C PCR (pending) 04/30/24 Qtc: 450 ms BCR-ABL: 05/07/24 13:26 07/24/24 10:56 08/20/24 09:00 BCR ABL1 Major (p210) Result Detected ! High Positive Detected ! BCR ABL1 International Scale (Percent) 45.9300 See Note 31.5575 Treatment/Therapy Plan: Asciminib 40 mg PO QD [...] that time. Pharmacist Attestation: Jojo Iyer, Yoli 09/10/2024 2:03 PM documented in this encounter Plan of Treatment Upcoming Encounters Date Type Department Care Team (Late st Contact Info) Description 09/25/2024 10:30 AM EDT Clinical Support [facility] CC Hematology/BMT and Cellular Therapy Program [address] [place] [phone] 09/25/2024 11:00 AM EDT Office Visit [facility] CC Hematology/BMT and Cellular Therapy Program [address] [phone] Elena Ledezma, WEDDING COORDINATOR 800 [facility] [address] [place] [phone] 09/25/2024 2:00 PM EDT Appointment PAV CC Echo 800 [facility] [address] [place] [phone] 09/25/2024 3:00 PM EDT Appointment PAV H Pulmonary Function Testing [address] [place] [phone] 10/01/2024 1:00 PM EDT Clinical Support [facility] CC Hematology/BMT and Cellular Therapy Program [address] [phone] 10/01/2024 2:00 PM EDT Office Visit [facility] CC Hematology/BMT and Cellular Therapy Program [address] [place] [phone] 10/03/2024 8:30 AM EDT Clinical Support [facility] CC Hematology/BMT and Cellular Therapy Program [address] [phone] 10/03/2024 9:00 AM EDT Procedure Visit [facility] CC Hematology/BMT and Cellular Therapy Program [address] [phone] Bhavana Bella, WEDDING COORDINATOR 800 [facility] [address] [place] [phone] 10/10/2024 Hospital Encounter PAV A Inpatient [facility] [address] [place] [phone] Mk Pastrana MD 800 [facility] [address] [phone] documented as of this encounter Procedures Procedure Name Priority Date/Time Associated Diagnosis Comments QUANT DETECTION OF BCR-ABL1 MAJOR (P210) (SO) Routine 09/10/2024 11:12 AM EDT CML (chronic myelocytic leukemia) (CMS/HCC) CBC WITH AUTO DIFFERENTIAL Routine 09/10/2024 11:12 AM EDT CML (chronic myelocytic leukemia) (CMS/HCC) PHOSPHORUS, PLASMA Routine 09/10/2024 11 :12 AM EDT CML (chronic myelocytic leukemia) (CMS/HCC) MAGNESIUM, PLASMA Routine 09/10/2024 11: 12 AM EDT CML (chronic myelocytic leukemia) (CMS/HCC) LIPASE, PLASMA Routine 09/10/2024 11:12 AM EDT CML (chronic myelocytic leukemia) (CMS/HCC) LACTATE DEHYDROGENASE, PLASMA Routine 09/10/2024 11:12 AM EDT CML (chronic myelocytic leukemia) (CMS/HCC) AMYLASE, PLASMA Routine 09/10/2024 11:12 AM EDT CML (chronic myelocytic leukemia) (CMS/HCC) COMPREHENSIVE METABOLIC PANEL, PLASMA Routine 09/10/2024 11:12 AM EDT CML (chronic myelocytic leukemia) (CMS/HCC) documented in this encounter Results * (ABNORMAL) Quant Detection of BCR-ABL1 Major (p210) (SO) (09/10/2024 11:12 AM EDT) [facility] Quant BCR-ABL1, Major (p210), Source Whole Blood 09/17/2024 9:43 AM EDT [facility] ([facility]) Quant BCR-ABL1, Major (p210), Result Detected(A ) 09/17/2024 9:43 AM EDT [facility] ([facility]) Quant BCR-ABL1, Major (p210), IS Percent 20.4857 % 09/17/2024 9:43 AM EDT [facility] ([facility]) Quant BCR-ABL1, Major (p210), EER See Note 09/17/2024 9:43 AM EDT [facility] ([employer]) Blood Venous blood specimen / Unknown Venipuncture / Unknown 09/10/2024 11:12 AM EDT 09/10/2024 11:39 AM EDT Narrative [facility] ([facility]) - 09/17/2024 9:43 AM EDT This result has been reviewed and approved by Allan Barba M.D. BCR::ABL1 fusion transcripts (p210 forms) were detected [...] (IS; see Zhu MC, et al. Leukemia. 2009;23:0015-1139). METHODOLOGY: Total RNA was isolated and converted [...] CML patients (Ashlee CHÁVEZ, et al. NEJ. 2003;349:6417-5957). ANALYTICAL SENSITIVITY: Limit of quantification: 0.0032 percent [...] developed and its performance characteristics determined by [employer]. It has not been cleared or approved by the U.S. Food and Drug Administration. This test was performed in a CLIA-certified laboratory and is intended for clinical purposes. Authorized individuals can access the [employer] Enhanced Report with an [employer] Connect account using the following link. Your local lab can assist you in obtaining the patient report if you don't have a Connect account. [email or web address] Performed By: [email or web address] [address] [place] [address] Juvenile Corrections Officer: Sunil Gomez MD, PhD CLIA Number: [id number] Elena Ledezma APRN LAB BLOOD ORDERABLES Final Res ult Performing Organization Address City/[facility]/ZIP Co de Phone Number [facility] ([facility]) [address] [place] [address] * Lipase (09/10/2024 11:12 AM EDT) Lipase, Plasma 28 19 - 63 U/L 09/10/2024 12:[address] [facility] Blood Venous blood specimen / Unknown Venipuncture / Unknown 09/10/2024 11:12 AM EDT 09/10/2024 11:35 AM EDT Elena Ledezma APRN LAB BLOOD ORDERABLES Final Res ult [facility] [address] [place] [address] * Amylase (09/10/2024 11:12 AM EDT) Amylase 40 27 - 114 U/L 09/10/2024 12:[address] [facility] Blood Venous blood specimen / Unknown Venipuncture / Unknown 09/10/2024 11:12 AM EDT 09/10/2024 11:35 AM EDT us Elena Ledezma WEDDING COORDINATOR LAB BLOOD ORDERABLES [place] [address] * Phosphorus, Plasma (09/10/2024 11:12 AM EDT) Phosphorus, Plasma 3.8 2.5 - 4.5 mg/dL 09/10/2024 12:[address] [facility] Blood Venous blood specimen / Unknown Venipuncture / Unknown 09/10/2024 11:12 AM EDT 09/10/2024 11:35 AM EDT us Elena Ledezma WEDDING COORDINATOR LAB BLOOD ORDERABLES [place] [address] * Magnesium, Plasma (09/10/2024 11:12 AM EDT) Magnesium, Plasma 2.1 1.9 - 2.4 mg/dL 09/10/2024 12:[address] [facility] Blood Venous blood specimen / Unknown Venipuncture / Unknown 09/10/2024 11:12 AM EDT 09/10/2024 11:35 AM EDT us Elena Ledezma WEDDING COORDINATOR LAB BLOOD ORDERABLES Final Res ult [facility] [address] [place] [address] * Lactate Dehydrogenase, Plasma (09/10/2024 11:12 AM EDT) LDH, Plasma 188 116 - 250 U/L 09/10/2024 12:[address] [facility] Comment:Hemolyzed, result ma y be falsely increased. Blood Venous blood specimen / Unknown Venipuncture / Unknown 09/10/2024 11:12 AM EDT 09/10/2024 11:35 AM EDT us Elena Ledezma APRN LAB BLOOD ORDERABLES Final Res ult [facility] [address] [place] [address] * (ABNORMAL) Comprehensive Metabolic Panel, Plasma (09/10/2024 11:12 AM EDT) Glucose, Plasma 67(L) 74 - 99 mg/dL 09/10/2024 12:[address] [facility] BUN, Plasma 11 7 - 21 mg/dL 09/10/2024 12:[address] [facility] Creatinine, Plasma 0.60 0.60 - 1.10 mg/dL 09/10/2024 12:[address] [facility] BUN/Creatinine Ratio 18 09/10/2024 12:[address] [facility] Sodium, Plasma 140 136 - 145 mmol/L 09/10/2024 12:[address] [facility] Potassium, Plasma 4.5 3.6 - 4.9 mmol/L 09/10/2024 12:[address] [facility] Chloride, Plasma 106 97 - 107 mmol/L 09/10/2024 12:[address] [facility] CO2, Plasma 22 22 - 29 mmol/L 09/10/2024 12:[address] [facility] Anion Gap 12 6 - 16 mmol/L 09/10/2024 12:[address] [facility] Total Calcium, Plasma 9.1 8.9 - 10.2 mg/dL 09/10/2024 12:[address] [facility] Total Protein 6.6 6.3 - 7.9 g/dL 09/10/2024 12:[address] [facility] Albumin, Plasma 4.1 3.5 - 5.2 g/dL 09/10/2024 12:[address] [facility] AST, Plasma 16 10 - 35 U/L 09/10/2024 12:[address] [facility] Comment:Hemolyzed, result ma y be falsely increased. ALT, Plasma 11 10 - 35 U/L 09/10/2024 12:[address] [facility] Alkaline Phosphatase, Plasma 89 35 - 104 U/L 09/10/2024 12:[address] [facility] Total Bilirubin, Plasma 0.5 0.2 - 1.1 mg/dL 09/10/2024 12:[address] [facility] eGFRcr 108.2 mL/min/1.7 3m*2 09/10/2024 12:[address] [facility] Comment:Reported eGFRcr in m L/min/1.73m2 is based the CKD-EPI 2020 equation that does not use a race coefficient. Blood Venous blood specimen / Unknown Venipuncture / Unknown 09/10/2024 11:12 AM EDT 09/10/2024 11:35 AM EDT us Elena Ledezma APRN LAB BLOOD ORDERABLES Final Res ult [facility] [address] [place] [address] * (ABNORMAL) CBC and Differential (09/10/2024 11:12 AM EDT) WBC Count 1.88(L) 3.70 - 10.30 10*3/uL LAB HEMATOLOGY METHOD 09/10/2024 11:34 AM EDT [facility] RBC Count 3.51(L) 3.90 - 5.20 10*6/uL LAB HEMATOLOGY METHOD 09/10/2024 11:34 AM EDT [facility] HGB 11.2 11.2 - 15.7 g/dL LAB HEMATOLOGY METHOD 09/10/2024 11:34 AM EDT [facility] HCT 33.1(L) 34.0 - 45.0 % LAB HEMATOLOGY METHOD 09/10/2024 11:34 AM EDT [facility] Platelet Count 37(L) 155 - 369 10*3/uL LAB HEMATOLOGY METHOD 09/10/2024 11:34 AM EDT [facility] MCV 94 79 - 98 fL LAB HEMATOLOGY METHOD 09/10/2024 11:34 AM EDT [facility] MCH 31.9 26.0 - 32.0 pg LAB HEMATOLOGY METHOD 09/10/2024 11:34 AM EDT [facility] MCHC 33.8 30.7 - 35.5 g/dL LAB HEMATOLOGY METHOD 09/10/2024 11:34 AM EDT [facility] RDW 17.2(H) 11.5 - 14.5 % LAB HEMATOLOGY METHOD 09/10/2024 11:34 AM EDT [facility] MPV 9.9 8.8 - 12.5 fL LAB HEMATOLOGY METHOD 09/10/2024 11:34 AM EDT [facility] nRBC 0.0 <=0.0 per 100 WBCs LAB HEMATOLOGY METHOD 09/10/2024 11:34 AM EDT [facility] Differential Type Automated LAB HEMATOLOGY METHOD 09/10/2024 11:34 AM EDT [facility] Neutrophils % 19 % LAB HEMATOLOGY METHOD 09/10/2024 11:34 AM EDT [facility] Lymphocytes % 75 % LAB HEMATOLOGY METHOD 09/10/2024 11:34 AM EDT [facility] Monocytes % 3 % LAB HEMATOLOGY METHOD 09/10/2024 11:34 AM EDT [facility] Eosinophils % 1 % LAB HEMATOLOGY METHOD 09/10/2024 11:34 AM EDT [facility] Basophils % 1 % LAB HEMATOLOGY METHOD 09/10/2024 11:34 AM EDT [facility] Immature Granulocytes % 1 % LAB HEMATOLOGY METHOD 09/10/2024 11:34 AM EDT [facility] Neutrophils Absolute 0.35(LL) 1.60 - 6.10 10*3/uL LAB HEMATOLOGY METHOD 09/10/2024 11:34 AM EDT [facility] Lymphocytes Absolute 1.44 1.20 - 3.90 10*3/uL LAB HEMATOLOGY METHOD 09/10/2024 11:34 AM EDT [facility] Monocytes Absolute 0.06(L) 0.30 - 0.90 10*3/uL LAB HEMATOLOGY METHOD 09/10/2024 11:34 AM EDT [facility] Eosinophils Absolute 0.01 0.00 - 0.50 10*3/uL LAB HEMATOLOGY METHOD 09/10/2024 11:34 AM EDT [facility] Basophils Absolute 0.01 0.00 - 0.10 10*3/uL LAB HEMATOLOGY METHOD 09/10/2024 11:34 AM EDT [facility] Immature Granulocytes Absolute 0.01 0.00 - 0.06 10*3/uL LAB HEMATOLOGY METHOD 09/10/2024 11:34 AM EDT [facility] Blood Venous blood specimen / Unknown Venipuncture / Unknown 09/10/2024 11:12 AM EDT 09/10/2024 11:28 AM EDT Narrative [facility] - 09/10/2024 11:34 AM EDT Therapeutic decision making should be based on absolute values, rather than percentages. us Elena Ledezma WEDDING COORDINATOR LAB BLOOD ORDERABLES Final Res ult [facility] [address] [place] [address] documented in this encounter Visit Diagnoses Diagnosis CML (chronic myelocytic leukemia) (CMS/HCC)- Primary Chronic myeloid leukemia, without mention of having achieved remission documented in this encounter Additional Health Concerns Assessment Noted Time A Body Mass Index follow-up plan has been documented for the patient 08/28/2024 5:28 PM EDT documented as of this encounter Care Teams Personnel Manager Relationship Specialty Start Date End Date Willi Frost MD [address] [place] [address] [address] [place] [address] PCP - General 06/11/24 documented as of this encounter
--- OUTSIDE RECORDS SUMMARY | 2024-09-10 13:34 | XMS_ITS | Encounter Summary ---
Author Organization [facility] Address [address] [place] [address] Care Team Providers Care Director Of Psychiatry Name Role Phone Willi Frost MD Primary Care Provider [phone] Reason for Referral * Clinic-Administered Medication (Routine) - Pending Review Specialty Diagnoses / Procedures Referred By Akosua linda Referred To Contact Bhavana Bella APRN [address] [address] Phone: tel: fax: Referral ID Status Reason Start Date Expiration Date V isits Requested Visits Authorized [id number] Pending Review 09/10/2024 03/12/2026 1 1 Reason for Visit * Clinic-Administered Medication (Routine) - Pending Review Specialty Diagnoses / Procedures Referred By Akosua linda Referred To Contact Bhavana Bella APRN [address] [phone] Phone: tel: fax: Referral ID Status Reason Start Date Expiration Date V isits Requested Visits Authorized [id number] Pending Review 09/10/2024 03/12/2026 1 1 Encounter Details Date Type Department Care Team (Latest Contact Info) Description 09/10/2024 1:34 PM EDT - 09/10/2024 11:59 PM EDT Hospital Encounter [facility] [address] [place] [address] CML (chronic myelocytic leukemia) (CMS/HCC) (Primary Dx) [...] by mouth daily. 60 tablet 2 07/12/2024 cetirizine (ZyrTEC) 10 MG tablet Take 1 tablet by mouth daily. 7 tablet 09/10/2024 documented as of this encounter Plan of Treatment Upcoming Encounters Date Type Department Care Team ([facility] st Contact Info) Description 09/25/2024 10:30 AM EDT Clinical Support [facility] CC Hematology/BMT and Cellular Therapy Program [address] [place] [address] 09/25/2024 11:00 AM EDT Office Visit [facility] Hematology/BMT and Cellular Therapy Program [address] [place] [phone] Elena Ledezma, FIBERGLASS ROLLER 800 [facility] [address] [place] [phone] 09/25/2024 2:00 PM EDT Appointment [facility] CC Echo 800 [facility] [address] [place] [address] 09/25/2024 3:00 PM EDT Appointment [facility] H Pulmonary Function Testing [address] [place] [phone] 10/01/2024 1:00 PM EDT Clinical Support [facility] Hematology/BMT and Cellular Therapy Program [address] [phone] 10/01/2024 2:00 PM EDT Office Visit [facility] Hematology/BMT and Cellular Therapy Program [address] [phone] 10/03/2024 8:30 AM EDT Clinical Support [facility] Hematology/BMT and Cellular Therapy Program [address] [place] [address] 10/03/2024 9:00 AM EDT Procedure Visit [facility] Hematology/BMT and Cellular Therapy Program [address] [place] [phone] Bhavana Bella, MARCY 800 [facility] [address] [phone] 10/10/2024 Hospital Encounter [facility] A Inpatient [facility] [address] [place] [phone] Mk Pastrana MD 800 [facility] [address] [phone] documented as of this encounter Procedures Procedure Name Priority Date/Time Associated Diagnosis Comments PLATELET COUNT, BLOOD STAT 09/10/2024 3:41 PM EDT TRANSFUSE PLATELETS Routine 09/10/2024 2 :40 PM EDT CML (chronic myelocytic leukemia) ([facility]/HCC) PREPARE PLATELETS Routine 09/10/2024 2:0 6 PM EDT CML (chronic myelocytic leukemia) ([facility]) documented in this encounter Results * Transfuse [...] LAB HEMATOLOGY METHOD 09/10/2024 3:45 PM EDT [facility] Blood Venous blood specimen / Unknown Venipuncture / Unknown 09/10/2024 3:41 PM EDT 09/10/2024 3:43 PM EDT us Bhavana Bella APRN LAB BLOOD ORDERABLES Final Result Performing Organization Address [facility] Co de Phone Number HEALTHCARE LAB [address] [place] [address] * Prepare Leukocyte Reduced Platelets: 1 Units, Irradiated, Leukoreduced (09/10/2024 2:06 PM EDT) Product Code [id number] CH BLOO D BANK Dispense Status Transfused BLOOD BANK Blood Expiration Date [id number] BLOOD BANK Unit Number [id number] CH B LOOD BANK Product Blood Type 6200 BLOOD BANK Blood Type A+ BLOOD BANK Blood Venous blood specimen / Unknown us Bhavana Bella APRN BLOOD BANK PRODUCT ORDERAB LES Final Result Performing Organization Address [facility] Co de Phone Number BLOOD BANK [address] [place] [address], [place] documented in this encounter Visit Diagnoses Diagnosis CML (chronic myelocytic leukemia) (CMS/HCC)- Primary Chronic myeloid leukemia, without mention of having achieved remission documented in this encounter Administered Medications Inactive Administered Medications - up to 3 most recent administrations Medication Order MAR Action Action Date Dose Rate Site filgrastim-sndz (ZARXIO) injection 300 mcg 300 mcg, Subcutaneous, Once, 1 dose, On 09/10/24 at 1445, Routine Given 09/10/2024 3:56 PM EDT 300 mcg Left Lower Abdomen documented in this encounter Additional Health Concerns Assessment Noted Time A Body Mass Index follow-up plan has been documented for the patient 08/28/2024 5:28 PM EDT documented as of this encounter Care Teams Director Of Psychiatry Relationship Specialty Start Date End Date Willi Frost MD [address] [place] [address] [address] [place] [address] PCP - General 06/11/24 documented as of this encounter
--- OUTSIDE RECORDS SUMMARY | 2024-09-11 15:00 | XMS_ITS | Encounter Summary ---
Author Organization Healthcare Address [address] [place] [address] Care Team Providers Care Door Repairer Bus Name Role Phone Willi Frost MD Primary Care Provider Encounter Details Date Type Department Care Team (Late st Contact Info) Description 09/11/2024 3:00 PM EDT [facility] Visit [facility] [address] 2nd Floor [place] [phone] Michelle Garza [address] [place] [phone] Cancer (CMS/HCC) (Primary Dx); Extraction of tooth [...] - 09/11/2024 3:00 PM EDT Adult Dentistry [facility] Subjective: 54 y.o. female presents to [...] constant threat to life EOE: WNL IOE: ROJAS: WNL HTE: Only teeth present # 23,24,25,26,27, [...] Upcoming Encounters Date Type Department Care Team ([facility] st Contact Info) Description 09/25/2024 10:30 AM EDT Clinical Support [facility] Hematology/BMT and Cellular Therapy Program [address] [phone] 09/25/2024 11:00 AM EDT Office Visit [facility] Hematology/BMT and Cellular Therapy Program [address] [address] Elena Ledezma, CENTRIFUGE SEPARATOR OPERATOR 800 [facility] [address] [place] [address] 09/25/2024 2:00 PM EDT Appointment [facility] Echo 800 [facility] 2nd [place] [address] 09/25/2024 3:00 PM EDT Appointment P[facility] H Pulmonary Function Testing 800 [place] [address] 10/01/2024 1:00 PM EDT Clinical Support [facility] Hematology/BMT and Cellular Therapy Program [address] [address] 10/01/2024 2:00 PM EDT Office Visit [facility] Hematology/BMT and Cellular Therapy Program [address] [address] 10/03/2024 8:30 AM EDT Clinical Support [facility] Hematology/BMT and Cellular Therapy Program [address] [address] 10/03/2024 9:00 AM EDT Procedure Visit [facility] Hematology/BMT and Cellular Therapy Program 750 [facility] [place] [address] Bhavana Bella APRN 800 [facility] [address] [place] [phone] 10/10/2024 Hospital Encounter PAV A Inpatient [facility] [address] [place] [address] Mk Pastrana MD 800 [facility] [address] [place] [address] documented as of this encounter Procedures [...] CBC and differential (09/11/2024 3:05 PM EDT) Pathologist [facility] WBC Count 2.47(L) 3.70 - 10.30 10*3/uL LAB HEMATOLOGY METHOD 09/11/2024 6:39 PM EDT [facility] RBC Count 3.47(L) 3.90 - 5.20 10*6/uL LAB HEMATOLOGY METHOD 09/11/2024 6:39 PM EDT [facility] HGB 11.2 11.2 - 15.7 g/dL LAB HEMATOLOGY METHOD 09/11/2024 6:39 PM EDT [facility] HCT 32.9(L) 34.0 - 45.0 % LAB HEMATOLOGY METHOD 09/11/2024 6:39 PM EDT [facility] Platelet Count 57(L) 155 - 369 10*3/uL LAB HEMATOLOGY METHOD 09/11/2024 6:39 PM EDT [facility] MCV 95 79 - 98 fL LAB HEMATOLOGY METHOD 09/11/2024 6:39 PM EDT [facility] MCH 32.3(H) 26.0 - 32.0 pg LAB HEMATOLOGY METHOD 09/11/2024 6:39 PM EDT [facility] MCHC 34.0 30.7 - 35.5 g/dL LAB HEMATOLOGY METHOD 09/11/2024 6:39 PM EDT [facility] RDW 17.1(H) 11.5 - 14.5 % LAB HEMATOLOGY METHOD 09/11/2024 6:39 PM EDT [facility] MPV 9.7 8.8 - 12.5 fL LAB HEMATOLOGY METHOD 09/11/2024 6:39 PM EDT [facility] nRBC 0.0 <=0.0 per 100 WBCs LAB HEMATOLOGY METHOD 09/11/2024 6:39 PM EDT [facility] Differential Type Automated LAB HEMATOLOGY METHOD 09/11/2024 6:39 PM EDT [facility] Neutrophils % 42 % LAB HEMATOLOGY METHOD 09/11/2024 6:39 PM EDT [facility] Lymphocytes % 47 % LAB HEMATOLOGY METHOD 09/11/2024 6:39 PM EDT [facility] Monocytes % 5 % LAB HEMATOLOGY METHOD 09/11/2024 6:39 PM EDT [facility] Eosinophils % 0 % LAB HEMATOLOGY METHOD 09/11/2024 6:39 PM EDT [facility] Basophils % 0 % LAB HEMATOLOGY METHOD 09/11/2024 6:39 PM EDT [facility] Immature Granulocytes % 6 % LAB HEMATOLOGY METHOD 09/11/2024 6:39 PM EDT [facility] Neutrophils Absolute 1.03(L) 1.60 - 6.10 10*3/uL LAB HEMATOLOGY METHOD 09/11/2024 6:39 PM EDT [facility] Lymphocytes Absolute 1.17(L) 1.20 - 3.90 10*3/uL LAB HEMATOLOGY METHOD 09/11/2024 6:39 PM EDT [facility] Monocytes Absolute 0.11(L) 0.30 - 0.90 10*3/uL LAB HEMATOLOGY METHOD 09/11/2024 6:39 PM EDT [facility] Eosinophils Absolute 0.01 0.00 - 0.50 10*3/uL LAB HEMATOLOGY METHOD 09/11/2024 6:39 PM EDT [facility] Basophils Absolute 0.01 0.00 - 0.10 10*3/uL LAB HEMATOLOGY METHOD 09/11/2024 6:39 PM EDT [facility] Immature Granulocytes Absolute 0.14(H) 0.00 - 0.06 10*3/uL LAB HEMATOLOGY METHOD 09/11/2024 6:39 PM EDT [facility] Blood Venous blood specimen / Unknown Venipuncture / Unknown 09/11/2024 3:05 PM EDT 09/11/2024 3:06 PM EDT Narrative [facility] - 09/11/2024 6:39 PM EDT Therapeutic decision making should be based on absolute values, rather than percentages. us Shameka Combs DMD LAB BLOOD ORDERABLES Final R esult [facility] [address] [place] [address] documented in this encounter Visit Diagnoses Diagnosis Cancer (CMS/HCC)- Primary Other malignant neoplasm of unspecified site Extraction of tooth needed documented in this encounter Additional Health Concerns Assessment Noted Time A Body Mass Index follow-up plan has been documented for the patient 09/11/2024 6:12 PM EDT documented as of this encounter Care Teams Door Repairer Bus Relationship Specialty Start Date End Date Willi Frost MD [address] [place] [address] PCP - General 06/11/24 documented as of this encounter
--- OUTSIDE RECORDS SUMMARY | 2024-09-17 14:41 | XMS_ITS | Encounter Summary ---
Author Organization [facility] Address [address] [place] [address] Care Team Providers Care Health And Physical Education Professor Name Role Phone Pcp, No Primary Care Provider Willi Mckeon MD Primary Care Provider [phone] Encounter Details Date Type Department Care Team (Late Contact Info) Description 2024 Lab Requisition [facility] H Lab [address] [place] [phone] Mk Pastrana MD 800 [facility] [address] [place] [address] Chronic myeloid leukemia, BCR/ABL-positive, 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) Social History Tobacco Use Types Packs/Day [...] Encounters Date Type Department Care Team (Late Contact Info) Description 09/25/2024 10:30 AM EDT Clinical Support [facility] Hematology/BMT and Cellular Therapy Program 750 [facility], [facility] [place] [address] 09/25/2024 11:00 AM EDT Office Visit [facility] Hematology/BMT and Cellular Therapy Program [address] [place] [phone] Elena Ledezma, CROSSBOW MAKER 800 [facility] Cancer [address] [phone] 09/25/2024 2:00 PM EDT Appointment [facility] CC Echo 800 [facility] 2nd [place] [phone] 09/25/2024 3:00 PM EDT Appointment P[facility] H Pulmonary Function Testing 800 [place] [phone] 10/01/2024 1:00 PM EDT Clinical Support [facility] Hematology/BMT and Cellular Therapy Program [address] [place] [address] 10/01/2024 2:00 PM EDT Office Visit [facility] Hematology/BMT and Cellular Therapy Program [address] [place] [address] 10/03/2024 8:30 AM EDT Clinical Support [facility] Hematology/BMT and Cellular Therapy Program [address] [phone] 10/03/2024 9:00 AM EDT Procedure Visit [facility] Hematology/BMT and Cellular Therapy Program [address] [place] [phone] Bhavana Bella, CROSSBOW MAKER 800 [facility] Cancer [address] [phone] 10/10/2024 Hospital Encounter PAV A Inpatient [facility] [address] [place] [address] Mk Pastrana MD 800 [facility] Cancer [address] [phone] documented as of this encounter Procedures Procedure Name Priority Date/Time Associated Diagnosis Comments BONE MARROW EXAM CONSULT Routine 2024 12:48 PM EST Chronic myeloid leukemia, BCR/ABL-positive, 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) documented in this encounter Results * Bone marrow exam consult (2024 12:48 PM EST) Case Report Bone Marrow Case: [id number] Authorizing Provider: Mk Pastrana MD Collected: 2024 1248 Ordering Location: [facility] Lab Received: 2024 1248 Pathologist: Stewart Lombardi MD Specimen: Bone Marrow Aspirate, [id number] 05/06/2024 10:30 AM [facility] Final Diagnosis BONE MARROW ASPIRATE AND BIOPSY (CASE COLLECTED 02/13/2024): - VARIABLY HYPOCELLULAR BONE MARROW WITH DECREASED TRILINEAGE PRECURSORS (MOST NOTABLY MYELOID PRECURSORS), PATCHY 1+ RETICULIN FIBROSIS, MILD MEGAKARYOCYTIC ATYPIA, AND NO INCREASE IN BLASTS. 05/06/2024 10:[address] 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 PCR was negative for mutations within the BCR-ABL1 kinase domain. 05/06/2024 10:30 AM [facility] Clinical Information C92.10 - Chronic myeloid leukemia, BCR/ABL-positive, not having achieved remission [ICD-10-CM] 05/06/2024 10:30 AM EST [facility] Bone Marrow Differential BONE MARROW DIFFERENTIAL: 200 cells Normal Patient Neutrophils 15-50 25 Metamyelocytes 4-19 5 Myelocytes 1-18 8 Promyelocytes 1-8 1 Blasts 0-2 0 Monocytes 0-5 3 Erythroid 16-38 45 Lymphocytes 3-24 11 Eosinophils 0-6 0 Basophils 0-2 0 Plasma cells 0-4 2 Other 05/06/2024 10:[address] [facility] Aspirate Smear Aspirate smears are aspicular and paucicellular. Morphologic evaluation and differential is performed on touch preparation. 05/06/2024 10:30 AM EST [facility] Touch Imprints A touch preparation shows trilineage precursors. Myeloid precursors show complete maturation with no increase in blasts. Erythroid precursors show mild megaloblastoid change. Megakaryocytes are atypical, with some small forms having abnormal separation of nuclear lobes. 05/06/2024 10:30 AM [facility] Core Biopsy Core biopsy sections show patchy marrow cellularity (overall approximately 20%) with scattered foci of fibrosis. Cellular areas feature normally distributed trilineage precursors and cellular composition similar to touch preparation. No lymphoid aggregates are seen. A CD34 immunostain highlights microvasculature with no definite increase in blasts. 05/06/2024 10:30 AM [facility] Clot Section Clot sections are aspicular. They consist of predominantly blood. 05/06/2024 10:30 AM [facility] Flow Cytometry Interpretation Per report, flow cytometric analysis shows a hemodilute specimen with no immunophenotypic abnormalities. [id number] blasts constitute 0.1% of total events. 05/06/2024 10:30 AM [facility] CYTOGENETICS/MOL ECULAR INTERPRETATION Per report, conventional cytogenetic studies showed an abnormal female karyotype with the Fleming chromosome in 100% of analyzed metaphase cells. There are no other karyotypic abnormalities. Per report, molecular analysis showed no mutations within the BCR-ABL1 kinase domain. 05/06/2024 10:30 AM [facility] Gross Description A. [id number] Received along with a corresponding pathology report from [facility]ology [facility] Cytology Laboratory are 10 slides labeled outside case: [id number] collected on 02/13/2024. 05/06/2024 10:30 AM [facility] Note: A resident was involved in the service. I attest I examined the relevant preparations for the specimens and confirmed the diagnosis or interpretation. 05/06/2024 10:30 AM [facility] Bone Marrow Specimen from bone marrow obtained by aspiration / Unknown 2024 12:48 PM EST 2024 12:48 PM EST us Mk Pastrana MD LAB PATHOLOGY ORDERABLES Nani smith Result [facility] [address] [place] [address] documented in this encounter Visit Diagnoses Diagnosis Chronic myeloid leukemia, BCR/ABL-positive, 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) documented in this encounter Care Teams Health And Physical Education Professor Relationship Specialty Start Date End Date Pcp, [place] [address] [place] [address] PCP - General Family Medicine 04/30/24 06/10/24 Willi Frost MD [address] [place] [address] [address] [place] [address] PCP - General 06/11/24 documented as of this encounter
--- OUTSIDE RECORDS SUMMARY | 2024-09-17 14:41 | XMS_ITS | Encounter Summary ---
Author Organization [facility] Address [address] [place] [address] Care Team Providers Care Entertainment Agent Name Role Phone Willi Frost MD Primary Care Provider Encounter Details Date Type Department Care Team (Latest Contact Info) Description 08/28/2024 Travel Social History Tobacco Use Types Packs/Day Years [...] CC Hematology/BMT and Cellular Therapy Program [address] [address] 09/25/2024 11:00 AM EDT Office Visit [facility] Hematology/BMT and Cellular Therapy Program [address] [address] Elena Ledezma, RESIDENTIAL LIVING ASSISTANT 800 [facility] [address] [place] [phone] 09/25/2024 2:00 PM EDT Appointment P[facility] CC Echo 800 [facility] 2nd [place] [address] 09/25/2024 3:00 PM EDT Appointment PAV H Pulmonary Function Testing 800 [place] [phone] 10/01/2024 1:00 PM EDT Clinical Support PAV Hematology/BMT and Cellular Therapy Program [address] [place] [address] [place] [address] 10/01/2024 2:00 PM EDT Office Visit [facility] Hematology/BMT and Cellular Therapy Program [address] [address] 10/03/2024 8:30 AM EDT Clinical Support [facility] Hematology/BMT and Cellular Therapy Program [address] [place] [phone] 10/03/2024 9:00 AM EDT Procedure Visit PAV Hematology/BMT and Cellular Therapy Program [address] [place] [address] [place] [phone] Bhavana Bella, RESIDENTIAL LIVING ASSISTANT 800 [facility] [address] [place] [phone] 10/10/2024 Hospital Encounter PAV A Inpatient [facility] [address] [place] [phone] Mk Pastrana MD 800 [facility] [address] [place] [phone] documented as of this encounter Visit Diagnoses Not on filedocumented in this encounter Additional Health Concerns Assessment Noted Time A Body Mass Index follow-up plan has been documented for the patient 08/28/2024 5:28 PM EDT documented as of this encounter Care Teams Entertainment Agent Relationship Specialty Start Date End Date Willi Frost MD [facility] [address] [place] [address] PCP - General 06/11/24 documented as of this encounter
--- OUTSIDE RECORDS SUMMARY | 2024-09-17 14:41 | XMS_ITS | Encounter Summary ---
Author Organization [facility] Address [address] [place] [address] Care Team Providers Care Manager Of Patient Name Role Phone Willi Frost MD Primary Care Provider Encounter Details Date Type Department Care Team (Latest Contact Info) Description 09/10/2024 Travel Social History Tobacco Use Types Packs/Day [...] CC Hematology/BMT and Cellular Therapy Program [address] [address] 09/25/2024 11:00 AM EDT Office Visit [facility] CC Hematology/BMT and Cellular Therapy Program [address] [phone] Elena Ledezma, GAS PIPE LAYER 800 [facility] [address] [place] [phone] 09/25/2024 2:00 PM EDT Appointment P[facility] CC Echo 800 [facility] 2nd [place] [address] 09/25/2024 3:00 PM EDT Appointment PAV H Pulmonary Function Testing 800 [place] [phone] 10/01/2024 1:00 PM EDT Clinical Support PAV Hematology/BMT and Cellular Therapy Program [address] [place] [address] [place] [address] 10/01/2024 2:00 PM EDT Office Visit P[facility] CC Hematology/BMT and Cellular Therapy Program [address] [phone] 10/03/2024 8:30 AM EDT Clinical Support PAV Hematology/BMT and Cellular Therapy Program [address] [place] [phone] 10/03/2024 9:00 AM EDT Procedure Visit PAV Hematology/BMT and Cellular Therapy Program [address] [place] [address] [place] [phone] Bhavana Bella, GAS PIPE LAYER 800 [facility] [address] [place] [phone] 10/10/2024 Hospital Encounter PAV A Inpatient [facility] [address] [place] [phone] Mk Pastrana MD 800 [facility] [address] [place] [phone] documented as of this encounter Visit Diagnoses Not on filedocumented in this encounter Additional Health Concerns Assessment Noted Time A Body Mass Index follow-up plan has been documented for the patient 08/28/2024 5:28 PM EDT documented as of this encounter Care Teams Manager Of Patient Relationship Specialty Start Date End Date Willi Frost MD [facility] [address] [place] [address] PCP - General 06/11/24 documented as of this encounter
--- OUTSIDE RECORDS SUMMARY | 2024-09-17 14:41 | XMS_ITS | Encounter Summary ---
Author Organization [facility] Address [address] [place] [address] Care Team Providers Care Conference Planner Name Role Phone Willi Frost MD Primary Care Provider Encounter Details Date Type Department Care Team ([facility] Contact Info) Description 09/10/2024 Telephone P[facility] CC Hematology/BMT and Cellular Therapy Program [address] [place] [address] Tg Rodgers RN [facility] HEMATOLOGY PROGRAM CLINIC Social History Tobacco [...] as of this encounter Miscellaneous Notes * Clinician Note - Tg Rodgers RN - 09/10/2024 12:23 PM EDT Critical lab reported. ANC 0.35. Primary RN notified. documented in this encounter Plan of Treatment Upcoming Encounters Date Type Department Care Team (Late Contact Info) Description 09/25/2024 10:30 AM EDT Clinical Support [facility] CC Hematology/BMT and Cellular Therapy Program [address] [place] [phone] 09/25/2024 11:00 AM EDT Office Visit P[facility] CC Hematology/BMT and Cellular Therapy Program [address] [place] [phone] Elena Ledezma, TRIM MOUNTER 800 [facility] [address] [place] [phone] 09/25/2024 2:00 PM EDT Appointment PAV CC Echo 800 [facility] 2nd [place] [phone] 09/25/2024 3:00 PM EDT Appointment PAV H Pulmonary Function Testing 800 [place] [address] 10/01/2024 1:00 PM EDT Clinical Support [facility] CC Hematology/BMT and Cellular Therapy Program [address] [place] [phone] 10/01/2024 2:00 PM EDT Office Visit P[facility] CC Hematology/BMT and Cellular Therapy Program [address] [phone] 10/03/2024 8:30 AM EDT Clinical Support [facility] CC Hematology/BMT and Cellular Therapy Program [address] [place] [phone] 10/03/2024 9:00 AM EDT Procedure Visit P[facility] CC Hematology/BMT and Cellular Therapy Program [address] [place] [phone] Bhavana Bella, TRIM MOUNTER 800 [facility] [address] [place] [phone] 10/10/2024 Hospital Encounter PAV A Inpatient [facility] 800 [place] [phone] Mk Pastrana MD 800 [facility] [address] [place] [phone] documented as of this encounter Visit Diagnoses Not on filedocumented in this encounter Additional Health Concerns Assessment Noted Time A Body Mass Index follow-up plan has been documented for the patient 08/28/2024 5:28 PM EDT documented as of this encounter Care Teams Conference Planner Relationship Specialty Start Date End Date Willi Frost MD [address] [place] [address] [address] [place], [place] [phone] PCP - General 06/11/24 documented as of this encounter
--- OUTSIDE RECORDS SUMMARY | 2024-09-17 14:41 | XMS_ITS | Encounter Summary ---
Author Organization [facility] Address [address] [id number] Care Team Providers Care Restaurant Supervisor Name Role Phone Willi Frost MD Primary Care Provider Reason for Visit * Reason Comments Resource Navigation Consult Encounter Details Date Type Department Care Team ([facility] st Contact Info) Description 08/20/2024 Social Work Psych Oncology [address] [place] [address] Michelle Gamez LCSW [address] [id number] Social History Tobacco Use Types Packs/Day Years [...] encounter Miscellaneous Notes * Clinician Note - Michelle Gamez LCSW - 08/20/2024 11:41 AM EDT Encounter Type: In Person Visit Disease Status: Initial Psych Onc Contact Clinic Location: [facility] Disease Type: Leukemia Services Provided: Emotional Support, Caregiver Support, Resource Navigation, Psychosocial Monitoring, Financial Support Education Provided: Financial Support/Aid National Referrals: Leukemia & Lymphoma Society External Financial Support Received (Dollar Amount): 100 $ Intervention Level: 3 Units (1 unit = 15 minutes): 2 Narrative: CAROLE met with patient along with her daughter in exam room at request of provider to discuss caregiver support options within the context of transplant. COOK CHILL TECHNICIAN explained role within clinic along with Psych-Oncology services. 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 Both patient and daughter explain complexities of caregiver support. Patient relocated from [place] after diagnosis to be closer to support system and is now living with daughter Jade. While there are multiple persons in household, most have other responsibilities so caregiver support during the day could be challenging. Patient and daughter asked about grantand/or insurance fund caregiver support options. COOK CHILL TECHNICIAN explained that there are no specific grants for caregivers but grants through [facility] that can help offset income loss. COOK CHILL TECHNICIAN, patient, and daughter also discussed logistics of post-transplant schedule including daily appts. If transportation is main barrier than medicaid transportation could be explored as option. Patient will have caregiver support daily from 4:00pm-overnight. Patient and daughter were encouraged to talk over disposition with family and further discussion will occur during formal BMT P/S evaluation. COOK CHILL TECHNICIAN to remain available for supportive needs as they arise. They were provided with contact information and encouraged to reach out as supportive needs as they arise. COOK CHILL TECHNICIAN also completed LLS Patient Aid on this date as well. documented in this encounter Plan of Treatment Upcoming Encounters Date Type Department Care Team ([facility] Contact Info) Description 09/25/2024 10:30 AM EDT Clinical Support P[facility] Hematology/BMT and Cellular Therapy Program [address] [phone] 09/25/2024 11:00 AM EDT Office Visit PAV Hematology/BMT and Cellular Therapy Program [address] [place] [address] Elena Ledezma, HYDRO ELECTRIC STATION OPERATOR 800 [facility] [address] [place] [phone] 09/25/2024 2:00 PM EDT Appointment PAV CC Echo 800 [facility] 2nd [place] [address] 09/25/2024 3:00 PM EDT Appointment PAV H Pulmonary Function Testing [address] [place] [address] 10/01/2024 1:00 PM EDT Clinical Support PAV CC Hematology/BMT and Cellular Therapy Program [address] [place] [address] 10/01/2024 2:00 PM EDT Office Visit PAV CC Hematology/BMT and Cellular Therapy Program [address] [place] [address] 10/03/2024 8:30 AM EDT Clinical Support P[facility] CC Hematology/BMT and Cellular Therapy Program [address] [place] [address] 10/03/2024 9:00 AM EDT Procedure Visit [facility] CC Hematology/BMT and Cellular Therapy Program [address] [place] [address] [place] [address] Bhavana Bella, HYDRO ELECTRIC STATION OPERATOR [address] [facility] [address] [place] [phone] 10/10/2024 Hospital Encounter PAV A Inpatient [facility] [address] [place] [phone] Mk Pastrana MD [address] [facility] [address] [place] [phone] documented as of this encounter Visit Diagnoses Not on filedocumented in this encounter Care Teams Restaurant Supervisor Relationship Specialty Start Date End Date Willi Frost MD [facility] Sr[facility]i Path [facility] [address] [place] [address] PCP - General 06/11/24 documented as of this encounter
--- OUTSIDE RECORDS SUMMARY | 2024-09-17 14:41 | XMS_ITS | Encounter Summary ---
Author Organization [facility] Address [address] [phone] Care Team Providers Care Investment Advisor Name Role Phone Willi Frost MD Primary Care Provider Reason for Visit * Reason Comments Social Work/navigation Follow-up Encounter Details Date Type Department Care Team ([facility] st Contact Info) Description 08/28/2024 Social Work Psych Oncology [address] [place] [address] [place] [address] Social History Tobacco Use Types Packs/Day Years [...] Clinician Note - Michelle Gamez LCSW - 08/28/2024 6:09 PM EDT Encounter Type: Phone Call Disease Status: Established Patient Clinic Location: [facility] Disease Type: Leukemia Services Provided: Financial Support, Psychosocial Monitoring Intervention Level: 2 Units (1 unit = 15 minutes): 1 Narrative: RADAR ENGINEER spoke with patient via phone to follow up on assistance from LLS. She was informed that Patient Aid eric is pending need for identity verification. It is likely that application is pending because of recent move in the last year as patient relocated from [place]. She is informed thattypically photo identification is uploaded but ID in record does not match current address in [place]. RADAR ENGINEER went over alternative options and it was determined [facility]. Patient shared she is either going to send RADAR ENGINEER via email or provide during her RTC on 09/10. She was encouraged to reach out for on-going supportive needs as they arise. documented in this encounter Plan of Treatment Upcoming Encounters Date Type Department Care Team ([facility] Contact Info) Description 09/25/2024 10:30 AM EDT Clinical Support P[facility] CC Hematology/BMT and Cellular Therapy Program [address] [place] [phone] 09/25/2024 11:00 AM EDT Office Visit PAV CC Hematology/BMT and Cellular Therapy Program [address] [place] [phone] Elena Ledezma, PHYSICIAN OFFICE SECRETARY 800 [facility] [address] [place] [phone] 09/25/2024 2:00 PM EDT Appointment PAV CC Echo 800 [facility] 2nd [place] [address] 09/25/2024 3:00 PM EDT Appointment PAV H Pulmonary Function Testing 800 [place] [address] 10/01/2024 1:00 PM EDT Clinical Support PAV CC Hematology/BMT and Cellular Therapy Program [address] [address] 10/01/2024 2:00 PM EDT Office Visit PAV CC Hematology/BMT and Cellular Therapy Program [address] [place] [phone] 10/03/2024 8:30 AM EDT Clinical Support PAV CC Hematology/BMT and Cellular Therapy Program [address] [phone] 10/03/2024 9:00 AM EDT Procedure Visit PAV CC Hematology/BMT and Cellular Therapy Program 750 [facility] [place] [address] Bhavana Bella, MARCY 800 [facility] [address] [place] [phone] 10/10/2024 Hospital Encounter PAV A Inpatient [facility] [address] [place] [address] Mk Pastrana MD 800 [facility] [address] [place] [phone] documented as of this encounter Visit Diagnoses Not on filedocumented in this encounter Additional Health Concerns Assessment Noted Time A Body Mass Index follow-up plan has been documented for the patient 08/28/2024 5:28 PM EDT documented as of this encounter Care Teams Investment Advisor Relationship Specialty Start Date End Date Willi Frost MD [facility] Sr[facility]i [facility] [address] [place] [address] PCP - General 06/11/24 documented as of this encounter
--- OUTSIDE RECORDS SUMMARY | 2024-09-17 14:41 | XMS_ITS | Encounter Summary ---
Author Organization [facility] Address [address] [place] [address] Care Team Providers Care Math Interventionist Name Role Phone Willi Frost MD Primary Care Provider Encounter Details Date Type Department Care Team (Latest Contact Info) Description 07/24/2024 Travel Social History Tobacco Use Types Packs/Day [...] Hematology/BMT and Cellular Therapy Program [address] [phone] 09/25/2024 11:00 AM EDT Office Visit PAV CC Hematology/BMT and Cellular Therapy Program [address] [phone] Elena Ledezma, LOGGING SPECIALIST 800 [facility] [address] [place] [phone] 09/25/2024 2:00 PM EDT Appointment PAV CC Echo 800 [facility] 2nd [place] [address] 09/25/2024 3:00 PM EDT Appointment PAV H Pulmonary Function Testing 800 [place] [address] 10/01/2024 1:00 PM EDT Clinical Support PAV CC Hematology/BMT and Cellular Therapy Program [address] [place] [address] [place] [address] 10/01/2024 2:00 PM EDT Office Visit PAV CC Hematology/BMT and Cellular Therapy Program [address] [place] [address] 10/03/2024 8:30 AM EDT Clinical Support PAV CC Hematology/BMT and Cellular Therapy Program [address] [place] [address] [place] [address] 10/03/2024 9:00 AM EDT Procedure Visit PAV CC Hematology/BMT and Cellular Therapy Program [address] [place] [phone] Bhavana Bella, LOGGING SPECIALIST 800 [facility] [address] [place] [phone] 10/10/2024 Hospital Encounter PAV A Inpatient [facility] [address] [place] [phone] Mk Pastrana MD 800 [facility] [address] [place] [phone] documented as of this encounter Visit Diagnoses Not on filedocumented in this encounter Care Teams Math Interventionist Relationship Specialty Start Date End Date Willi Frost MD [facility] [address] [place] [address] PCP - General 06/11/24 documented as of this encounter
--- OUTSIDE RECORDS SUMMARY | 2024-09-17 14:41 | XMS_ITS | Encounter Summary ---
Author Organization [facility] Address [address] [place] [address] Care Team Providers Care Vehicle Fare Collector Name Role Phone Willi Frost MD Primary Care Provider Encounter Details Date Type Department Care Team ([facility] Contact Info) Description 08/28/2024 Orders Only PAV CC Hematology/BMT and Cellular Therapy Program [address] [place] [phone] Jojo Iyer, PharmD [address] [place] [address] CML (chronic myelocytic leukemia) (CMS/HCC) (Primary Dx) [...] Upcoming Encounters Date Type Department Care Team ([facility] Contact Info) Description 09/25/2024 10:30 AM EDT Clinical Support PAV CC Hematology/BMT and Cellular Therapy Program 750 [facility], [address] [place] [address] [place] [address] 09/25/2024 11:00 AM EDT Office Visit PAV CC Hematology/BMT and Cellular Therapy Program [address] [place] [phone] Elena Ledezma, MARCY 800 [facility] [address] [phone] 09/25/2024 2:00 PM EDT Appointment PAV CC Echo 800 [facility] 2nd [place] [address] 09/25/2024 3:00 PM EDT Appointment PAV H Pulmonary Function Testing 800 [place] [address] 10/01/2024 1:00 PM EDT Clinical Support PAV CC Hematology/BMT and Cellular Therapy Program [address] [place] [address] 10/01/2024 2:00 PM EDT Office Visit PAV CC Hematology/BMT and Cellular Therapy Program [address] [place] [address] [place] [address] 10/03/2024 8:30 AM EDT Clinical Support P[facility] CC Hematology/BMT and Cellular Therapy Program [address] [place] [address] [place] [address] 10/03/2024 9:00 AM EDT Procedure Visit PAV CC Hematology/BMT and Cellular Therapy Program [address] [place] [address] [place] [address] Bhavana Bella, MARCY 800 [facility] [address] [phone] 10/10/2024 Hospital Encounter PAV A Inpatient [facility] [address] [place] [address] Mk Pastrana MD 800 [facility] [address] [phone] documented as of this encounter Visit Diagnoses Diagnosis CML (chronic myelocytic leukemia) (CMS/HCC)- Primary Chronic myeloid leukemia, without mention of having achieved remission documented in this encounter Additional Health Concerns Assessment Noted Time A Body Mass Index follow-up plan has been documented for the patient 08/28/2024 5:28 PM EDT documented as of this encounter Care Teams Vehicle Fare Collector Relationship Specialty Start Date End Date Willi Frost MD [address] [place] [address] PCP - General 06/11/24 documented as of this encounter
--- OUTSIDE RECORDS SUMMARY | 2024-09-17 14:41 | XMS_ITS | Encounter Summary ---
Author Organization [facility] Address [address] [place] [address] Care Team Providers Care Casting Machine Service Operator Name Role Phone Willi Frost MD Primary Care Provider Encounter Details Date Type Department Care Team (Latest Contact Info) Description 08/20/2024 Travel Social History Tobacco Use Types Packs/Day [...] CC Hematology/BMT and Cellular Therapy Program [address] [address] 09/25/2024 11:00 AM EDT Office Visit PAV CC Hematology/BMT and Cellular Therapy Program [address] [phone] Elena Ledezma, FIREFIGHTING EQUIPMENT SPECIALIST 800 [facility] [address] [place] [phone] 09/25/2024 2:00 PM EDT Appointment PAV CC Echo 800 [facility] 2nd [place] [address] 09/25/2024 3:00 PM EDT Appointment PAV H Pulmonary Function Testing 800 [place] [address] 10/01/2024 1:00 PM EDT Clinical Support PAV CC Hematology/BMT and Cellular Therapy Program [address] [place] [address] [place] [address] 10/01/2024 2:00 PM EDT Office Visit PAV CC Hematology/BMT and Cellular Therapy Program [address] [place] [address] 10/03/2024 8:30 AM EDT Clinical Support PAV CC Hematology/BMT and Cellular Therapy Program [address] [place] [address] [place] [address] 10/03/2024 9:00 AM EDT Procedure Visit PAV CC Hematology/BMT and Cellular Therapy Program [address] [place] [phone] Bhavana Bella, FIREFIGHTING EQUIPMENT SPECIALIST 800 [facility] [address] [place] [phone] 10/10/2024 Hospital Encounter PAV A Inpatient [facility] [address] [place] [phone] Mk Pastrana MD 800 [facility] [address] [place] [phone] documented as of this encounter Visit Diagnoses Not on filedocumented in this encounter Care Teams Casting Machine Service Operator Relationship Specialty Start Date End Date Willi Frost MD [facility] [address] [place] [address] PCP - General 06/11/24 documented as of this encounter
--- OUTSIDE RECORDS SUMMARY | 2024-09-17 14:41 | XMS_ITS | Encounter Summary ---
Author Organization [facility] Address [address] [place] [address] Care Team Providers Care Metal Flooring Installer Name Role Phone Willi Frost MD Primary Care Provider [phone] Reason for Referral * Consultation (Routine) - Authorized Specialty Diagnoses / Procedures Referred By Akosua linda Referred To Contact Pharmacy Diagnoses CML (chronic myelocytic leukemia) (CMS/HCC) Smoker Mk Pastrana MD 800 [facility] [address] [address] Phone: tel: fax: Referral ID Status Reason Start Date Expiration Date Visits Requested Visits Authorized [id number] Authorized Specialty Services Required 08/01/2024 01/31/2026 1 1 * Genetic Testing (Routine) - Closed Specialty Diagnoses / Procedures Referred By Akosua linda Referred To Contact Lab Diagnoses CML (chronic myelocytic leukemia) (CMS/HCC) Procedures Quant Detection of BCR-ABL1 Major (p210) (SO) kM Pastrana MD 800 [facility] [address] [address] Phone: tel: fax: Referral ID Status Reason Start Date Expiration Date Visits Re quested Visits Authorized [id number] Closed 07/30/2024 01/29/2026 1 1 Encounter Details Date Type Department Care Team ([facility] Contact Info) Description 07/30/2024 Orders Only PAV CC Hematology/BMT and Cellular Therapy Program [address] [place] [phone] Virgilio King, RN [facility] H[facility]INIC CML (chronic myelocytic leukemia) ([facility]/HCC); Smoker Social History Tobacco Use Types Packs/Day Years [...] Hematology/BMT and Cellular Therapy Program [address] [place] [address] 09/25/2024 11:00 AM EDT Office Visit [facility] CC Hematology/BMT and Cellular Therapy Program [address] [phone] Elena Ledezma, FLATBED STITCHER 800 [facility] [address] [place] [phone] 09/25/2024 2:00 PM EDT Appointment PAV CC Echo 800 [facility] 2nd [place] [address] 09/25/2024 3:00 PM EDT Appointment PAV H Pulmonary Function Testing [address] [place] [phone] 10/01/2024 1:00 PM EDT Clinical Support P[facility] CC Hematology/BMT and Cellular Therapy Program [address] [phone] 10/01/2024 2:00 PM EDT Office Visit [facility] CC Hematology/BMT and Cellular Therapy Program [address] [place] [phone] 10/03/2024 8:30 AM EDT Clinical Support PAV Hematology/BMT and Cellular Therapy Program [address] [place] [phone] 10/03/2024 9:00 AM EDT Procedure Visit PAV Hematology/BMT and Cellular Therapy Program 750 [facility], [address] [place] [address] [place] [phone] Bhavana Bella, FLATBED STITCHER 800 [facility] [address] [place] [phone] 10/10/2024 Hospital Encounter PAV A Inpatient [facility] [address] [place] [phone] Mk Pastrana MD 800 [facility] [address] [place] [phone] Scheduled Referrals Name Type Priority Associated Diagnoses Order Schedule Ambulatory referral to Smoking Cessation Program Outpatient Referral Routine CML (chronic myelocytic leukemia) ([facility]/HCC) Smoker 1 Occurrences starting 08/01/2024 until 01/31/2026 documented as of this encounter Results * (ABNORMAL) Quant Detection of BCR-ABL1 Major (p210) (SO) (08/20/2024 9:00 AM EDT) Pathologist [facility] Quant BCR-ABL1, Major (p210), Source Whole Blood 08/26/2024 3:50 PM EDT [facility] ([facility]) Quant BCR-ABL1, Major (p210), Result Detected(A ) 08/26/2024 3:50 PM EDT [facility] ([facility]) Quant BCR-ABL1, Major (p210), IS Percent 31.5955 % 08/26/2024 3:50 PM EDT [facility] ([facility]) Quant BCR-ABL1, Major (p210), EER See Note 08/26/2024 3:50 PM EDT [facility] ([place]) Blood Venous blood specimen / Unknown Venipuncture / Unknown 08/20/2024 9:00 AM EDT 08/20/2024 9:16 AM EDT [facility] ([place]) - 08/26/2024 3:50 PM EDT This result [...] (IS; see Zhu MC, et al. Leukemia. 2009;23:0085-1493). METHODOLOGY: Total RNA was isolated and converted [...] using a validated reference sample (provided by QiagenGaro MD; see Richelle TROTTER et al. Blood. 2010;116:111-117) that was calibrated to a standard set of diagnostic specimens defined during the original trial of tyrosine kinase inhibitor therapy in CML patients (Ashlee CHÁVEZ, et al. NEJ. 2003;349:7606-7131). ANALYTICAL SENSITIVITY: Limit of quantification: 0.0032 percent [...] developed and its performance characteristics determined by [facility]. It has not been cleared or approved by the U.S. Food and Drug Administration. This test was performed in a CLIA-certified laboratory and is intended for clinical purposes. Authorized individuals can access the [employer] Enhanced Report with an [employer] Connect account using the following link. Your local lab can assist you in obtaining the patient report if you don't have a Connect account. [email or web address] Performed By: [facility] [address] [place] [id number] Agronomy Specialist: Sunil Gomez MD, PhD CLIA Number: [id number] Mk Pastrana MD LAB BLOOD ORDERABLES Final Re sult [facility] ([facility]) [address] [place] [address] * Lipase, Plasma (08/20/2024 9:00 AM EDT) Pathologist [facility] Lipase, Plasma 28 19 - 63 U/L 08/20/2024 10:02 AM EDT [facility] Blood Venous blood specimen / Unknown Venipuncture / Unknown 08/20/2024 9:00 AM EDT 08/20/2024 9:17 AM EDT Mk Pastrana MD LAB BLOOD ORDERABLES Final Re sult [facility] [address] [place] [address] * Phosphorus, Plasma (08/20/2024 9:00 AM EDT) Pathologist [facility] Phosphorus, Plasma 3.4 2.5 - 4.5 mg/dL 08/20/2024 10:02 AM EDT [facility] Blood Venous blood specimen / Unknown Venipuncture / Unknown 08/20/2024 9:00 AM EDT 08/20/2024 9:17 AM EDT us Mk Pastrana MD LAB BLOOD ORDERABLES Final Re sult Performing Organization Address [facility]/ZIP Co de Phone Number [facility] [address] [place] [address] * Amylase, Plasma (08/20/2024 9:00 AM EDT) Amylase 49 27 - 114 U/L 08/20/2024 10:02 AM EDT [facility] Blood Venous blood specimen / Unknown Venipuncture / Unknown 08/20/2024 9:00 AM EDT 08/20/2024 9:17 AM EDT Mk Pastrana MD LAB BLOOD ORDERABLES Final Re sult Performing Organization Address [facility] Co de Phone Number [facility] [address] [place] [address] * Magnesium, Plasma (08/20/2024 9:00 AM EDT) Magnesium, Plasma 2.2 1.9 - 2.4 mg/dL 08/20/2024 10:02 AM EDT [facility] Blood Venous blood specimen / Unknown Venipuncture / Unknown 08/20/2024 9:00 AM EDT 08/20/2024 9:17 AM EDT Mk Pastrana MD LAB BLOOD ORDERABLES Final Re sult Performing Organization Address City/[facility]/ZIP Co de Phone Number [facility] [address] [place] [address] * Lactate Dehydrogenase, Plasma (08/20/2024 9:00 AM EDT) LDH, Plasma 228 116 - 250 U/L 08/20/2024 10:02 AM EDT [facility] Blood Venous blood specimen / Unknown Venipuncture / Unknown 08/20/2024 9:00 AM EDT 08/20/2024 9:17 AM EDT us Mk Pastrana MD LAB BLOOD ORDERABLES Final Re sult [facility] [address] [place] [address] * (ABNORMAL) CBC and Differential (08/20/2024 9:00 AM EDT) WBC Count 2.38(L) 3.70 - 10.30 10*3/uL LAB HEMATOLOGY METHOD 08/20/2024 9:54 AM EDT [facility] RBC Count 4.06 3.90 - 5.20 10*6/uL LAB HEMATOLOGY METHOD 08/20/2024 9:54 AM EDT [facility] HGB 12.6 11.2 - 15.7 g/dL LAB HEMATOLOGY METHOD 08/20/2024 9:54 AM EDT [facility] HCT 36.5 34.0 - 45.0 % LAB HEMATOLOGY METHOD 08/20/2024 9:54 AM EDT [facility] Platelet Count 64(L) 155 - 369 10*3/uL LAB HEMATOLOGY METHOD 08/20/2024 9:54 AM EDT [facility] MCV 90 79 - 98 fL LAB HEMATOLOGY METHOD 08/20/2024 9:54 AM EDT [facility] MCH 31.0 26.0 - 32.0 pg LAB HEMATOLOGY METHOD 08/20/2024 9:54 AM EDT [facility] MCHC 34.5 30.7 - 35.5 g/dL LAB HEMATOLOGY METHOD 08/20/2024 9:54 AM EDT [facility] RDW 16.9(H) 11.5 - 14.5 % LAB HEMATOLOGY METHOD 08/20/2024 9:54 AM EDT [facility] MPV 10.3 8.8 - 12.5 fL LAB HEMATOLOGY METHOD 08/20/2024 9:54 AM EDT [facility] nRBC 0.0 <=0.0 per 100 WBCs LAB HEMATOLOGY METHOD 08/20/2024 9:54 AM EDT [facility] Differential Type Automated LAB HEMATOLOGY METHOD 08/20/2024 9:54 AM EDT [facility] Neutrophils % 36 % LAB HEMATOLOGY METHOD 08/20/2024 9:54 AM EDT [facility] Lymphocytes % 60 % LAB HEMATOLOGY METHOD 08/20/2024 9:54 AM EDT [facility] Monocytes % 2 % LAB HEMATOLOGY METHOD 08/20/2024 9:54 AM EDT [facility] Eosinophils % 2 % LAB HEMATOLOGY METHOD 08/20/2024 9:54 AM EDT [facility] Basophils % 0 % LAB HEMATOLOGY METHOD 08/20/2024 9:54 AM EDT [facility] Immature Granulocytes % 0 % LAB HEMATOLOGY METHOD 08/20/2024 9:54 AM EDT [facility] Neutrophils Absolute 0.86(LL) 1.60 - 6.10 10*3/uL LAB HEMATOLOGY METHOD 08/20/2024 9:54 AM EDT [facility] Lymphocytes Absolute 1.43 1.20 - 3.90 10*3/uL LAB HEMATOLOGY METHOD 08/20/2024 9:54 AM EDT [facility] Monocytes Absolute 0.05(L) 0.30 - 0.90 10*3/uL LAB HEMATOLOGY METHOD 08/20/2024 9:54 AM EDT [facility] Eosinophils Absolute 0.04 0.00 - 0.50 10*3/uL LAB HEMATOLOGY METHOD 08/20/2024 9:54 AM EDT [facility] Basophils Absolute 0.00 0.00 - 0.10 10*3/uL LAB HEMATOLOGY METHOD 08/20/2024 9:54 AM EDT [facility] Immature Granulocytes Absolute 0.00 0.00 - 0.06 10*3/uL LAB HEMATOLOGY METHOD 08/20/2024 9:54 AM EDT [facility] Blood Venous blood specimen / Unknown Venipuncture / Unknown 08/20/2024 9:00 AM EDT 08/20/2024 9:14 AM EDT Narrative [facility] - 08/20/2024 9:54 AM EDT Therapeutic decision making should be based on absolute values, rather than percentages. us Mk Pastrana MD LAB BLOOD ORDERABLES Final Re sult [facility] [address] [place] [address] * Comprehensive Metabolic Panel, Plasma (08/20/2024 9:00 AM EDT) [facility] Signature Glucose, Plasma 90 74 - 99 mg/dL 08/20/2024 10:02 AM EDT [facility] BUN, Plasma 7 7 - 21 mg/dL 08/20/2024 10:02 AM EDT [facility] Creatinine, Plasma 0.70 0.60 - 1.10 mg/dL 08/20/2024 10:02 AM EDT [facility] BUN/Creatinine Ratio 10 08/20/2024 10:02 AM EDT [facility] Sodium, Plasma 141 136 - 145 mmol/L 08/20/2024 10:02 AM EDT [facility] Potassium, Plasma 4.2 3.6 - 4.9 mmol/L 08/20/2024 10:02 AM EDT [facility] Chloride, Plasma 104 97 - 107 mmol/L 08/20/2024 10:02 AM EDT [facility] CO2, Plasma 27 22 - 29 mmol/L 08/20/2024 10:02 AM EDT [facility] Anion Gap 10 6 - 16 mmol/L 08/20/2024 10:02 AM EDT [facility] Total Calcium, Plasma 9.5 8.9 - 10.2 mg/dL 08/20/2024 10:02 AM EDT [facility] Total Protein 6.8 6.3 - 7.9 g/dL 08/20/2024 10:02 AM EDT [facility] Albumin, Plasma 4.5 3.5 - 5.2 g/dL 08/20/2024 10:02 AM EDT [facility] AST, Plasma 25 10 - 35 U/L 08/20/2024 10:02 AM EDT [facility] ALT, Plasma 20 10 - 35 U/L 08/20/2024 10:02 AM EDT [facility] Alkaline Phosphatase, Plasma 97 35 - 104 U/L 08/20/2024 10:02 AM EDT [facility] Total Bilirubin, Plasma 0.5 0.2 - 1.1 mg/dL 08/20/2024 10:02 AM EDT [facility] eGFRcr 104.2 mL/min/1.7 3m*2 08/20/2024 10:02 AM EDT [facility] Comment:Reported eGFRcr in m L/min/1.73m2 is based the CKD-EPI 2020 equation that does not use a race coefficient. Blood Venous blood specimen / Unknown Venipuncture / Unknown 08/20/2024 9:00 AM EDT 08/20/2024 9:17 AM EDT us Mk Pastrana MD LAB BLOOD ORDERABLES Final Re sult [facility] [address] [place] [address] documented in this encounter Visit Diagnoses Diagnosis CML (chronic myelocytic leukemia) (CMS/HCC) Chronic myeloid leukemia, without mention of having achieved remission Smoker Tobacco use disorder documented in this encounter Care Teams Metal Flooring Installer Relationship Specialty Start Date End Date Willi Frost MD [address] [place] [phone] PCP - General 06/11/24 documented as of this encounter
--- OUTSIDE RECORDS SUMMARY | 2024-09-17 14:41 | XMS_ITS | Encounter Summary ---
Author Organization [facility] Address [address] [place] [address] Care Team Providers Care Sports Marketing Coordinator Name Role Phone Willi Frost MD Primary Care Provider Reason for Visit * Reason Onset Date Comments critical lab 08/28/2024 Encounter Details Date Type Department Care Team (Late st Contact Info) Description 08/28/2024 Telephone P[facility] CC Hematology/BMT and Cellular Therapy Program [address] [place] [address] Jocelin Ahuja, RN [facility] [place] [facility] SERV ADMIN critical lab Social History Tobacco Use Types Packs/Day Years [...] as of this encounter Miscellaneous Notes * Telephone Encounter - Terry Jay - 08/28/2024 4:34 PM EDT Patient calling about her getting extractions. Patient wants to know if she is supposed to be getting antibiotics before extraction. Callback number: [phone] * Clinician Note - Jocelin Ahuja RN - 08/28/2024 10:34 AM EDT RN received critical labs platelet count 47 documented in this encounter Plan of Treatment Upcoming Encounters Date Type Department Care Team ([facility] st Contact Info) Description 09/25/2024 10:30 AM EDT Clinical Support P[facility] CC Hematology/BMT and Cellular Therapy Program [address] [phone] 09/25/2024 11:00 AM EDT Office Visit PAV CC Hematology/BMT and Cellular Therapy Program [address] [phone] Elena Ledezma, UNIFORMER [address] [facility] [address] [place] [phone] 09/25/2024 2:00 PM EDT Appointment PAV CC Echo 800 [facility] [address]nd [place] [address] 09/25/2024 3:00 PM EDT Appointment PAV H Pulmonary Function Testing [address] [place] [address] 10/01/2024 1:00 PM EDT Clinical Support PAV CC Hematology/BMT and Cellular Therapy Program [address] [phone] 10/01/2024 2:00 PM EDT Office Visit PAV CC Hematology/BMT and Cellular Therapy Program [address] [phone] 10/03/2024 8:30 AM EDT Clinical Support PAV CC Hematology/BMT and Cellular Therapy Program [address] [phone] 10/03/2024 9:00 AM EDT Procedure Visit PAV CC Hematology/BMT and Cellular Therapy Program [address] [phone] Bhavana Bella, UNIFORMER [address] [facility] [address] [place] [address] 10/10/2024 Hospital Encounter PAV A Inpatient [facility] [address] [place] [address] Mk Pastrana MD [address] [facility] [address] [place] [phone] documented as of this encounter Visit Diagnoses Not on filedocumented in this encounter Additional Health Concerns Assessment Noted Time A Body Mass Index follow-up plan has been documented for the patient 08/28/2024 5:28 PM EDT documented as of this encounter Care Teams Sports Marketing Coordinator Relationship Specialty Start Date End Date Willi Frost MD [address] [place] [address] [address] [place] [address] PCP - General 06/11/24 documented as of this encounter
--- OUTSIDE RECORDS SUMMARY | 2024-09-17 14:41 | XMS_ITS | Encounter Summary ---
Author Organization [facility] Address [address] [place] [address] Care Team Providers Care Business Control Specialist Name Role Phone Willi Frost MD Primary Care Provider Encounter Details Date Type Department Care Team (Latest Contact Info) Description 08/27/2024 Travel Social History Tobacco Use Types Packs/Day [...] CC Hematology/BMT and Cellular Therapy Program [address] [phone] 09/25/2024 11:00 AM EDT Office Visit PAV CC Hematology/BMT and Cellular Therapy Program [address] [phone] Elena Ledezma, TWENTY ONE DEALER 800 [facility] [address] [place] [phone] 09/25/2024 2:00 PM EDT Appointment PAV CC Echo 800 [facility] 2nd [place] [address] 09/25/2024 3:00 PM EDT Appointment PAV H Pulmonary Function Testing [address] [place] [address] 10/01/2024 1:00 PM EDT Clinical Support PAV CC Hematology/BMT and Cellular Therapy Program [address] [place] [address] [place] [address] 10/01/2024 2:00 PM EDT Office Visit PAV CC Hematology/BMT and Cellular Therapy Program [address] [place] [address] 10/03/2024 8:30 AM EDT Clinical Support PAV CC Hematology/BMT and Cellular Therapy Program [address] [place] [address] [place] [address] 10/03/2024 9:00 AM EDT Procedure Visit PAV CC Hematology/BMT and Cellular Therapy Program [address] [place] [phone] Bhavana Bella, TWENTY ONE DEALER 800 [facility] [address] [place] [phone] 10/10/2024 Hospital Encounter PAV A Inpatient [facility] [address] [place] [phone] Mk Pastrana MD 800 [facility] [address] [place] [phone] documented as of this encounter Visit Diagnoses Not on filedocumented in this encounter Care Teams Business Control Specialist Relationship Specialty Start Date End Date Willi Frost MD [facility] [address] [place] [address] PCP - General 06/11/24 documented as of this encounter
--- OUTSIDE RECORDS SUMMARY | 2024-09-17 14:41 | XMS_ITS | Data Portability ---
Author Organization [facility] & SHARON Faulkner ADMIN Address [address] [place] [id number] Care Team Providers Care Sales And Marketing Professional Name Role Phone WILLI FROST Primary Care Provider Assessment No assessment recorded. Plan of Treatment Reminders Order Date Submit Date Provider Last Modified By Organization Details Last Modified Time Details Appointments None recorded. Lab CBC w/ auto diff 2023 024 [facility], [address] , [place], [address], 4 16:14:22 CMP, serum or plasma 2023 024 [facility], [address] , [place], [address], 4 17:21:27 bcr/alb1, quantitativ e PCR, blood or tissue 2023 024 [facility], [address] , [place], [address], 4 15:13:41 TSH, serum or plasma 20[email or web address] [facility], [address] , [place], [address], 4 09:21:29 Referral oncologist referral - 53 yo new patient with CML diagnosed in June 2023, currently on Tasigna 2023 024 [email or web address] 3 Fredrick Bateman MD, [address], [facility] , [place], [address], 4 14:47:33 Procedures None recorded. Surgeries None recorded. Imaging None recorded. Medication Orders oxycodone 5 mg tablet 2023 024 [facility], [address], [address], 4 14:53:21 ondansetron HCl 8 mg tablet 2023 024 [facility], [address], [address], 4 14:53:19 Tasigna 150 mg capsule 2023 024 [id number], [address] [facility], [address], [place], [address], 4 15:02:18 nicotine 21 mg/24 hr daily transdermal patch [email or web address] [place] [address] Pharmacy 571, [address] [place], [address], 4 22:59:29 Patient TargetsNo targets recorded. Patient InstructionsNo instructions recorded. Reason for Referral 53 yo new patient with CML d iagnosed in June 2023, currently on Tasigna Referring Physician: Willi Frost, Family Medicine, Encounter Date: 10/10/2023 Results Created Date Observation Date Name Description Value Unit Range Abnormal Flag Note LastModifiedBy Organization Detail LastModifiedTime 10/25/1910/25/2023 CBC AUTO W DIFF WBC 9.6 K/uL 4.0-10 .5 Not Available [facility] [address] , [place], [address], 10/25/2023 16:14:22 10/25/19 24 10/25/2023 CBC AUTO W DIFF RBC 4.5 M/mm3 4.2-6. 4 Not Available [facility]) [address], [place], [address], 10/25/2023 16:14:22 10/25/19 24 10/25/2023 CBC AUTO W DIFF HGB 12.2 gm/dL 12.5-1 6.0 low Not Available [facility] [address], [place], [address], 10/25/2023 16:14:22 10/25/19 24 10/25/2023 CBC AUTO W DIFF HCT 39.1 % 37.0-4 7.0 Not Available [facility]) [address], [place], [address], 10/25/2023 16:14:22 10/25/19 24 10/25/2023 CBC AUTO W DIFF MCV 87.3 fL 78-100 Not Available [facility]) [address] , [place], [address], 10/25/2023 16:14:22 10/25/19 24 10/25/2023 CBC AUTO W DIFF MCH 27.2 pg 27-31 Not Available [facility]) [address], [place], [address], 10/25/2023 16:14:22 10/25/19 24 10/25/2023 CBC AUTO W DIFF MCHC 31.2 g/dL 32-36 low Not Available [facility]) [address] , [place], [address], 10/25/2023 16:14:22 10/25/19 24 10/25/2023 CBC AUTO W DIFF RDW 15.6 % 11.5-1 4.0 high Not Available [facility]) [address] , [place], [address], 10/25/2023 16:14:22 10/25/19 24 10/25/2023 CBC AUTO W DIFF platelet count 402 K/uL 150-45 0 Not Available [facility]) [address] , [place], [address], 10/25/2023 16:14:22 10/25/19 24 10/25/2023 CBC AUTO W DIFF MPV 12.3 fL 6-9.5 high Not Available [facility]) [address] [place], [address], 10/25/2023 16:14:22 10/25/19 24 10/25/2023 CBC AUTO W DIFF neutrophil% 67.6 % 43-65 high Not Available [facility]) [address] , [place], [address], 10/25/2023 16:14:22 10/25/19 24 10/25/2023 CBC AUTO W DIFF lymphocyte% 21.7 % 20.5-4 5.5 Not Available [facility]) [address] [place], [address], 10/25/2023 16:14:22 10/25/19 24 10/25/2023 CBC AUTO W DIFF monocyte% 3.6 % 5.5-11 .7 low Not Available [facility] [address] [place], [address], 10/25/2023 16:14:22 10/25/19 24 10/25/2023 CBC AUTO W DIFF eosinophil% 3.6 % 0.9-2. 9 high Not Available [facility]) [address] [place], [address], 10/25/2023 16:14:22 10/25/19 24 10/25/2023 CBC AUTO W DIFF basophil% 2.5 % 0.2-1. 0 high Not Available [facility] [address] [place], [address], 10/25/2023 16:14:22 10/25/19 24 10/25/2023 CBC AUTO W DIFF immature granulocytes % 1.0 % 0.0-0. 8 high Not Available [facility]) [address] [facility], [place], [address], 10/25/2023 16:14:22 10/25/19 24 10/25/2023 CBC AUTO W DIFF nucleated red blood cells % 0.0 % Not Available [facility] ([facility]) [address] [facility], [place], [address], 10/25/2023 16:14:22 10/25/19 24 10/25/2023 CBC AUTO W DIFF neutrophil# 6.5 K/uL 2.2-4. 8 high Not Available [facility]) [address] [place], [address], 10/25/2023 16:14:22 10/25/19 24 10/25/2023 CBC AUTO W DIFF lymphocyte# 2.1 cell/ mcL 1.3-2. 9 Not Available [facility] [address] [place], [address], 10/25/2023 16:14:22 10/25/19 24 10/25/2023 CBC AUTO W DIFF monocyte# 0.4 cell/ mcL 0.3-0. 8 Not Available [facility] [address] [place], [address], 10/25/2023 16:14:22 10/25/19 24 10/25/2023 CBC AUTO W DIFF eosinophil# 0.4 cell/ mcL 0-0.2 high Not Available [facility] [address] [place], [address], 10/25/2023 16:14:22 10/25/19 24 10/25/2023 CBC AUTO W DIFF basophil# 0.2 cell/ mcL 0.0-1. 0 Not Available [facility]) [address], [place], [address], 10/25/2023 16:14:22 10/25/19 24 10/25/2023 CBC AUTO W DIFF immature gramulocytes # 0.10 K/uL Not Available [facility]) [address], [place], [address], 10/25/2023 16:14:22 10/25/19 24 10/25/2023 CBC AUTO W DIFF nucleated red blood cells # 0.00 K/uL Not Available [facility]) [address], [place], [address], 10/25/2023 16:14:22 10/25/19 24 10/25/2023 CBC AUTO W DIFF manual differential NO Not Available [facility] [address], [place], [address], 10/25/2023 16:14:22 10/25/19 24 10/25/2023 COMP METAB OLIC PANEL sodium 141 mmol/ L 136-14 5 Not Available [facility] [address], [place], [address], 10/25/2023 17:21:27 10/25/19 24 10/25/2023 COMP METAB OLIC PANEL potassium 4.3 mmol/ L 3.6-5. 0 Not Available [facility] [address], [place], [address], 10/25/2023 17:21:27 10/25/19 24 10/25/2023 COMP METAB OLIC PANEL chloride 105 mmol/ L 98-107 Not Available [facility] [address], [place], [address], 10/25/2023 17:21:27 10/25/19 24 10/25/2023 COMP METAB OLIC PANEL carbon dioxide 25.8 mmol/ L 21.0-3 2.0 Not Available [facility]) [address] , [place], [address], 10/25/2023 17:21:27 10/25/19 24 10/25/2023 COMP METAB OLIC PANEL anion gap 14.5 Not Available [facility] ([facility]) [address] , [place], [address], 10/25/2023 17:21:27 10/25/19 24 10/25/2023 COMP METAB OLIC PANEL glucose 83 mg/dL 70-120 Not Available [facility]) [address] , [place], [address], 10/25/2023 17:21:27 10/25/19 24 10/25/2023 COMP METAB OLIC PANEL BUN 14 mg/dL 7-18 Not Available [facility]) [address] , [place], [address], 10/25/2023 17:21:27 10/25/19 24 10/25/2023 COMP METAB OLIC PANEL creatinine 0.9 mg/dL 0.6-1. 3 Not Available [facility]) [address] , [place], [address], 10/25/2023 17:21:27 10/25/19 24 10/25/2023 COMP METAB OLIC PANEL glomerular filtration rate >60 mlper min 60- Not Available [facility]) [address] , [place], [address], 10/25/2023 17:21:27 10/25/19 24 10/25/2023 COMP METAB OLIC PANEL total protein 6.9 g/dL 6.4-8. 2 Not Available [facility]) [address], [place], [address], 10/25/2023 17:21:27 10/25/19 24 10/25/2023 COMP METAB OLIC PANEL albumin 3.7 g/dL 3.4-5. 0 Not Available [facility] ([facility]) [address], [place], [address], 10/25/2023 17:21:27 10/25/19 24 10/25/2023 COMP METAB OLIC PANEL globulin 3.2 Not Available [facility] ([facility]) [address] , [place], [address], 10/25/2023 17:21:27 10/25/19 24 10/25/2023 COMP METAB OLIC PANEL alb/glob ratio 1.2 0.7-2 Not Available [facility] ([facility]) [address] , [place], [address], 10/25/2023 17:21:27 10/25/19 24 10/25/2023 COMP METAB OLIC PANEL calcium 8.7 mg/dL 8.5-10 .5 Not Available [facility]) [address] , [place], [address], 10/25/2023 17:21:27 10/25/19 24 10/25/2023 COMP METAB OLIC PANEL bilirubin total 0.70 mg/dL 0.10-1 .00 Not Available [facility]) [address] , [place], [address], 10/25/2023 17:21:27 10/25/19 24 10/25/2023 COMP METAB OLIC PANEL AST (SGOT) 19 U/L 0-37 Not Available [facility] ([facility]) [address] , [place], [address], 10/25/2023 17:21:27 10/25/19 24 10/25/2023 COMP METAB OLIC PANEL ALT (SGPT) 50 U/L 0-65 Not Available [facility] ([facility]) [address], [place], [address], 10/25/2023 17:21:27 10/25/19 24 10/25/2023 COMP METAB OLIC PANEL alk phosphatase 118 U/L 46-116 high Not Available [facility] ([facility]) [address], [place], [address], 10/25/2023 17:21:27 10/25/19 24 10/25/2023 THYRO ID STIMU LATIN G HORMO NE thyroid stim hormone 2.45 mIU/L 0.36-3 .74 Not Available [facility] ([facility]) [address], [place], [address], 10/25/2023 17:22:32 10/25/19 24 11/01/2023 BCR-A BL1 RT-PC R methodology: Cateen t . Total RNA is isola vanessa from the sampl e and subje ct to a real- time, rever se trans cript ase polym erase chain react ion (RT-P CR). The PCR prime rs and probe s are speci fic for BCR- ABL1 e13a2 , e14a2 and e1a2 fusio n trans cript s. The ABL1 trans cript is ampli fied as the contr ol for cDNA quant ity and quali ty. Seria l dilut ions of a valid ated posit jeannie contr ol RNA with known t(9;2 2) BCR-A BL1 are used as refer ence for quant ifica tion of BCR-A BL1 relat jeannie to ABL1. The numer ic BCR-A BL1 level is repor vanessa as % BCR- ABL1/ ABL1 and the detec tion sensi tivit y is 4.5 log below the stand chely basel ine (<0.0 032%) . . This test was devel oped and its perfo rmanc e see cteri stics deter mined by [facility]. It has not been clear ed or appro mgao by the Food and Drug Admin istra tion. Not Available [facility] ([facility]) [address] [facility], [place], [address], 11/01/2023 15:12:50 10/25/19 24 11/01/2023 BCR-A BL1 RT-PC R interpretati on: Positi ve delta POSIT JEANNIE for the BCR-A BL1 e13a2 (b2a2 , p210) , e14a2 (b3a2 , p210) and e1a2 (p190 ) fusio n trans cript s. Not Available [facility]) [address] [facility], [place], [address], 11/01/2023 15:12:50 10/25/19 24 11/01/2023 BCR-A BL1 RT-PC R b2a2 transcript 26.978 8 % Not Available [facility]) [address] [facility], [place], [address], 11/01/2023 15:12:50 10/25/19 24 11/01/2023 BCR-A BL1 RT-PC R b3a2 transcript 17.658 1 % Not Available [facility]) [address] [facility], [place], [address], 11/01/2023 15:12:50 10/25/19 24 11/01/2023 BCR-A BL1 RT-PC R e1a2 transcript 0.0403 % Not Available [facility] ([facility]) [address] [facility], [place], [address], 11/01/2023 15:12:50 10/25/19 24 11/01/2023 BCR-A BL1 RT-PC R pdf image . Perfo rmed at: [facility] [place] [address] [facility] [place], [place] [address] Lab Direc tor: Finn Arguello [facility] , Phone : [phone] Perfo rmed at: [facility] [place] [address] , [place] [address] Lab Direc tor: Finn Arguello [facility] , Phone : [phone] Not Available [facility] ([facility]) [address], [place], [address], 11/01/2023 15:12:50 10/25/1911/01/2023 BCR-A BL1 RT-PC R background Stephanie linda . This assay can detec t three diffe rent types of BCR-A BL1 fusio n trans cript s assoc iated with CML, ALL, and AML: e13a2 (prev iousl y b2a2) and e14a2 (prev iousl y b3a2) (patrice r break point , p210) , as well as e1a2 (kaya r break point , p190) . The e13a2 and e14a2 trans cript value s are titra vanessa to the curre nt Inter natio nal Scale (IS). The stand ardiz ed basel ine is 100% BCR-A BL1 (IS) and major molec ular respo nse (MMR) is equiv alent to 0.1% BCR-A BL1 (IS) corre spond ing to a 3-log reduc tion. Resul ts shoul d be corre lated with appro priat e clini maria luz and labor atory infor matio n as indic ated. Not Available [facility] ([facility]) [address], [place], [address], 11/01/2023 15:12:50 10/25/1911/01/2023 BCR-A BL1 RT-PC R director review: Stephanie Duque, PhD, FACMG Direc tor, [facility] [place] [place], [place] [id number] [phone] Not Available [facility] ([facility]) [address], [place], [address], 11/01/2023 15:12:50 Result Notes None recorded. Procedures Surgical History Date Name Laterality Status Provider Name and Address Organization Details Recorded Time graft of skin to skin completed Sonia Robertsson [place] [facility] [place] 10/10/2023 13:32:25 ligation of fallopian tube completed Sonia Robertsson [place] [facility] [place] 10/10/2023 13:32:31 Imaging Results None recorded. Procedure Notes None recorded. Medical Equipment None Reported. Allergies No known drug allergies Medications Name Sig Start Date Stop Date Status Note LastModified by Organization Details LastModified Time polyethylen e glycol 3350 17 gram oral powder packet Take by oral route. 10/24 completed Not Available Not Available Not Available ondansetron HCl 8 mg tablet TAKE 1 TABLET BY MOUTH TWICE DAILY NEEDED active Not Available Not Available No t Available ketorolac 0.5 % eye drops INSTILL 1 DROP INTO AFFECTED EYE(S) BY OPHTHALMI C ROUTE 4 TIMES PER DAY active Not Available Not Available No t Available citalopram 20 mg tablet TAKE 1 TABLET BY MOUTH ONCE DAILY active Not Available Not Available No t Available famotidine 20 mg tablet Take 1 tablet twice a day by oral route. active Not Available Not Available No t Available hydrocortis one 1 % topical cream APPLY A THIN LAYER TO THE AFFECTED AREA(S) BY TOPICAL ROUTE 2 TIMES PER DAY active Not Available Not Available No t Available bupropion HCl 75 mg tablet TAKE 1 TABLET BY MOUTH ONCE DAILY FOR 30 DAYS active Not Available Not Available No t Available nicotine 21 mg/24 hr daily transdermal patch APPLY 1 PATCH TOPICALLY ONCE DAILY active Not Available Not Available No t Available hydroxyzine HCl 25 mg tablet Take 1 tablet 3 times a day by oral route. active Not Available Not Available No t Available nicotine 7 mg/24 hr daily transdermal patch Apply 1 patch every day by transderm al route. active Not Available Not Available No t Available oxycodone 5 mg tablet TAKE 1 TABLET BY MOUTH EVERY 6 TO 8 HOURS NEEDED active Not Available Not Available No t Available Artificial Tears (glycerin-p eg) 1 %-0.3 % eye drops active Not Available Not Available Not Available Tasigna 150 mg capsule Take 2 capsules twice a day by oral route for 30 days. active Not Available Not Available No t Available Vitals Date Recorded Body height Body mass index (BMI) Body weight Body temperature Oxygen saturation Oxygen saturation in Arterial blood by Pulse oximetry Heart rate Systolic blood pressure Diastolic blood pressure Provider Name and Address Organization Details Last Updated DateTime 4 165.1 cm 19.6 kg/m2 63931.1 1 g 97.9 [degF] 96 % 96 % 91 /min 138 mm[Hg] 81 mm[Hg] Sonia Evans [facility] & [place] 4 13:36:43 Date Recorded Body height Body mass index (BMI) Body weight Body temperature Oxygen saturation Oxygen saturation in Arterial blood by Pulse oximetry Heart rate Systolic blood pressure Diastolic blood pressure Provider Name and Address Organization Details Last Updated DateTime 4 165.1 cm 20.3 kg/m2 59391.5 5 g 97.7 [degF] 96 % 96 % 82 /min 124 mm[Hg] 80 mm[Hg] Lisy Pereira [facility] [place] 4 14:27:54 Date Recorded Body height Body mass index (BMI) Body weight Body temperature Oxygen saturation Oxygen saturation in Arterial blood by Pulse oximetry Heart rate Systolic blood pressure Diastolic blood pressure Provider Name and Address Organization Details Last Updated DateTime 4 165.1 cm 20.8 kg/m2 32842.0 5 g 98 [degF] 100 % 100 % 89 /min 128 mm[Hg] 84 mm[Hg] Lori Napoles [facility] [place] 4 13:32:59 Social History Question Answer Notes LastModified by Organizat ion Details LastModified Time Tobacco Smoking Status Current Every Day Smoker 4-5 cigs a day Lisy Pereira [facility] & [place] 10/25/2023 14:25:32 What Is Your Level Of Caffeine Consumption? Heavy [email or web address] Information not available 10/10/2023 What Is Your Current Pack Years? 30ormorepack years Information not available 10/10/2023 At What Age Did You Start Smoking Tobacco? 10 [email or web address] Information not available 10/10/2023 How Much Tobacco Do You Smoke? 1 PPD [email or web address] Information not available 10/10/2023 Has Tobacco Cessation Counseling Been Provided? No [email or web address] Information not available 10/10/2023 How Many Years Have You Smoked Tobacco? 48 [email or web address] Information not available 10/10/2023 Sex: Unknown Functional Status Question Answer Note LastModified by Organizat ion Details LastModified Time Do you use any illicit or recreational drugs? No [email or web address] Information not available 10/25/2023 Do you or have you ever used any other forms of tobacco or nicotine? No [email or web address] Information not available 10/10/2023 What is your level of alcohol consumption? None [email or web address] Information not available 10/10/2023 Mental Status None recorded. Family History Relationship Description Onset Age of this Age Resolved Age Notes LastModified by Organization Details LastModified Time Mother Malignant neoplasm of ovary [email or web address] Not available 2024 16:21:31 Unspecified Relation Disorder of brain grandf ather [email or web address] Not available 06/14/2024 16:21:53 Medical History Condition Response Cancer Y Gynecological HistoryNo gynecological history recorded. Obstetrics History GPAL:G 0 P 0 0 0 0 Past Encounters Encounter ID Performer Location Encounter Start Date Encounter Closed Date Diagnosis/Indication Diagnosis SNOMED-CT Code Diagnosis ICD10 Code Diagnosis Note [id number] Willi Frost MD [facility] [address] [place] [address] 10/10/2023 13:08:23 10/10/2023 13:55:46 Chronic myeloid leukemia 02354231 C92.Z0 Currently on Tasigna. I will refer her to Dr. Bateman Tobacco de pendence caused by cigarettes [id number] 3279411 F17.210 Try nicotine patch taper. Script to be sent in for the 21 mg daily patch which she can use for a month or 2 if needed. She will call when she is ready to taper down to the 14 mg daily [id number] Fredrick Bateman MD [facility] [address] [place] [address] 10/25/2023 14:03:28 10/25/2023 15:23:53 Chronic myeloid leukemia 27292398 C92.10 Patient was diagnosed in [place] with chronic myeloid leukemia in early 2023. Patient presented in June 2023 for evaluation of abdominal pain and was found to have marked splenomega ly. Patient was started on medication but was discontinu ed secondary to skin rash. Patient was then switched to nilotinib also known as Tasigna. Patient currently is taking for tablets p.o. daily. Current dosing is 150 mg capsule with 2 capsules taken p.o. b.i.d. for newly diagnosed [place] chromosome positive CML. Patient recently relocated to the area. Discussed with patient continuati on of current dosing of Tasigna. Will follow-up labs today. Patient reports still having left upper quadrant discomfort due to prior splenomega ly. This is not uncommon following massive splenomega ly in the setting of diagnosis. Usually will fade in frequency and likely improve Splenomegaly 84443991 R1 6.1 initially diagnosed with CML and found to have massive splenomega ly. On exam on October 25, 2023 spleen is normal in size. Mild left upper quadrant discomfort . Likely from capsular stretch. Continue with as needed pain medication . Discussed weaning of pain medication as proceeding further on oral therapy. Pain due t o neoplastic disease [id number] 9102 G89.3 Mild left upper quadrant discomfort . Likely from capsular stretch. Continue with as needed pain medication . Discussed weaning of pain medication as proceeding further on oral therapy. Nausea 497282598 R11.0 as needed zofran prescribed . [id number] Willi Frost MD [facility] [address] [place] [address] 01/15/2024 13:26:12 01/15/2024 14:04:24 Intermittent pain 912696139 R52 I am unsure how much of this is related to her cancer or cancer treatment. I explained to her she could call and speak with a physician online about getting a medical marijuana card which might be helpful for her or simply using THC gummies. Tobacco de pendence syndrome 24449601 F17.200 recommend she rededicate herself and get back on the patches to quit smoking. It sounds like she was on bupropion at 1 point to aid in his process. Unsure if she is on that still are not. She or her daughter are to call me after they get home to let me know if she is still taking the bupropion 75 mg daily or not Depressive disorder 2499 3436 F32.A currently on citalopram 20 mg daily. This was originally written by Dr. Bateman who patient is no longer seeing. I can resume writing this if need be. Chronic my eloid leukemia [id number] C92.Z0 Currently on Tasigna and seeing Dr. Armendariz in [facility]. Depending on her upcoming visit with him she may want to see a different oncologist . If so she will need to provide the name of 1 or we will simply refer her to [facility]. Health Concerns Section Related Observation LastModified by Organization Roshni ls LastModified Time None Recorded Concern Status LastModified by Organization Details LastModified Time None Recorded Advance Directives Directive None Recorded Payers Insurance Date Sequence Insurance Name Policy Number Policy Galloway Covered Member ID Galloway Member ID Guarantor Name 07/13/2024 1 [facility] (MEDICAID REPLACEMENT - HMO) Amita Ortiz [id number] Amita Ortiz Notes Date Note Type Note Provider Name and Address Organization Details Recorded Time 10/10/2023 text/html 53 yo WF present s to establish care. Just moved here from [place]. Living with daughter who accompanies her today. Has a h/o CML, diagnosed in june 2023, currently being treated with Tasigna. Needs a local oncologist.Currentl y, retired from [employer]-trying to get disability, smoker-1/2-1 ppd, non-drinker. He is also interested in quitting smoking and asked for a prescription for a nicotine patch which she said she was wearing in the hospital and doing well with. Willi Frost MD [id number] Formerly [facility], [place], [address], [facility] [place] 10/10/2023 23:00:54 10/25/2023 text/html 53 yo F Presents for evaluation chronic myeloid leukemia. Patient was diagnosed in [place] with chronic myeloid leukemia in early 2023. Patient presented in June 2023 for evaluation of abdominal pain and was found to have marked splenomegaly. Patient was started on medication but was discontinued secondary to skin rash. Patient was then switched to nilotinib also known as Tasigna. Patient currently is taking for tablets p.o. daily. Current dosing is 150 mg capsule with 2 capsules taken p.o. b.i.d. for newly diagnosed Iola chromosome positive CML. Patient recently relocated to the area. Discussed with patient continuation of current dosing of Tasigna. Will follow-up labs today. Patient reports still having left upper quadrant discomfort due to prior splenomegaly. This is not uncommon following massive splenomegaly in the setting of diagnosis. Usually will fade in frequency and likely improve Fredrick Bateman MD [address], [place], [address], [facility] & [place] 10/25/2023 15:20:25 01/15/2024 text/html Pt presents for F/U. Has seen Dr. Armendariz-oncologist in [facility] . Apparently got upset with Dr. Bateman's office so she left there to be seen by Dr. Armendariz. Is upset by the pain management group she was sent to by Dr. Armendariz because they apparently wanted to implant some sort of nerve stimulator which she did not want but she states she does not want to be placed on medications as well. Eventually it became clear what she is looking for is marijuana. We discussed medical marijuana today as well as THC gummies which he can obtain. Unfortunately she continues to smoke having only partially use the patches as well as what sounds like nicotine pouches. Willi Frost MD [address], [place], [address], [place] [facility] [place] 01/16/2024 13:10:37 OBGyn Episode No OBEpisode recorded.
--- OUTSIDE RECORDS SUMMARY | 2024-09-17 14:42 | XMS_ITS | Encounter Summary ---
Author Organization [facility] Address [address] [place] [address] Care Team Providers Care Media Production Operator Name Role Phone Willi Frost MD Primary Care Provider Encounter Details Date Type Department Care Team ([facility] Contact Info) Description 07/18/2024 Telephone P[facility] CC Hematology/BMT and Cellular Therapy Program [address] [address] Mk Pastrana MD 800 [facility] [address] [place] [phone] Social History Tobacco Use Types Packs/Day Years [...] encounter Miscellaneous Notes * Telephone Encounter - Michelle Sims RN - 07/19/2024 10:25 AM EDT Faxed labs received and uploaded to [employer] chart. Patient to continue dose as adjusted last week. RN called patient with update. * Telephone Encounter - Michelle Sims RN - 07/18/2024 4:17 PM EDT Rn requested recent [facility] labs to be faxed * Telephone Encounter - Terry Jay - 07/18/2024 4:05 PM EDT Patient calling to check if her blood results have came in Callback number: [phone] documented in this encounter Plan of Treatment Upcoming Encounters Date Type Department Care Team ([facility] st Contact Info) Description 09/25/2024 10:30 AM EDT Clinical Support [facility] Hematology/BMT and Cellular Therapy Program [address] [address] 09/25/2024 11:00 AM EDT Office Visit [facility] Hematology/BMT and Cellular Therapy Program [address] [phone] Elena Ledezma, AMMUNITION SPECIALIST 800 [facility] [address] [place] [phone] 09/25/2024 2:00 PM EDT Appointment PAV CC Echo 800 [facility] 2nd [place] [address] 09/25/2024 3:00 PM EDT Appointment PAV H Pulmonary Function Testing 800 [place] [address] 10/01/2024 1:00 PM EDT Clinical Support [facility] Hematology/BMT and Cellular Therapy Program [address] [address] 10/01/2024 2:00 PM EDT Office Visit [facility] Hematology/BMT and Cellular Therapy Program [address] [address] 10/03/2024 8:30 AM EDT Clinical Support [facility] Hematology/BMT and Cellular Therapy Program [address] [place] [phone] 10/03/2024 9:00 AM EDT Procedure Visit PAV Hematology/BMT and Cellular Therapy Program [address] [phone] Bhavana Bella, AMMUNITION SPECIALIST 800 [facility] [address] [place] [phone] 10/10/2024 Hospital Encounter PAV A Inpatient [facility] [address] [place] [address] Mk Pastrana MD 800 [facility] [address] [place] [phone] documented as of this encounter Visit Diagnoses Not on filedocumented in this encounter Care Teams Media Production Operator Relationship Specialty Start Date End Date Willi Frost MD [address] [facility] [address] [place] [address] PCP - General 06/11/24 documented as of this encounter
--- OUTSIDE RECORDS SUMMARY | 2024-09-17 14:42 | XMS_ITS | Encounter Summary ---
Author Organization [facility] Address [address] [place] [address] Care Team Providers Care Paint Roller Covers Supervisor Name Role Phone Willi Frost MD Primary Care Provider Encounter Details Date Type Department Care Team (Late Contact Info) Description 06/26/2024 Lab Requisition P[facility] A Blood Bank [address] [place] [address] Moises Estrada MD 800 [place] [address] General medical exam Social History Tobacco Use Types Packs/Day Years [...] Hematology/BMT and Cellular Therapy Program [address] [place] [address] 09/25/2024 11:00 AM EDT Office Visit [facility] CC Hematology/BMT and Cellular Therapy Program [address] [place] [address] Elena Ledezma, SKIVER HEEL TAP 800 [facility] [address] [place] [phone] 09/25/2024 2:00 PM EDT Appointment PAV CC Echo 800 [facility] 2nd [place] [phone] 09/25/2024 3:00 PM EDT Appointment PAV H Pulmonary Function Testing [address] [place] [phone] 10/01/2024 1:00 PM EDT Clinical Support P[facility] CC Hematology/BMT and Cellular Therapy Program [address] [phone] 10/01/2024 2:00 PM EDT Office Visit [facility] CC Hematology/BMT and Cellular Therapy Program [address] [place] [phone] 10/03/2024 8:30 AM EDT Clinical Support [facility] CC Hematology/BMT and Cellular Therapy Program [address] [phone] 10/03/2024 9:00 AM EDT Procedure Visit [facility] CC Hematology/BMT and Cellular Therapy Program [address] [place] [address] [place] [phone] Bhavana Bella, SKIVER HEEL TAP 800 [facility] [address] [phone] 10/10/2024 Hospital Encounter PAV A Inpatient [facility] [address] [place] [phone] Mk Pastrana MD 800 [facility] [address] [phone] documented as of this encounter Procedures Procedure Name Priority Date/Time Associated Diagnosis Comments BILL ONLY ISOAGGLUTININ TITER Routine 06/24/2024 11:26 AM EDT General medical exam BILL ONLY ISOAGGLUTININ TITER Routine 06/24/2024 11:26 AM EDT General medical exam BILL ONLY TYPE & SCREEN Routine 06/25/19 11:26 AM EDT General medical exam documented in this encounter Results * Bill Only Type & Screen (06/24/2024 11:26 AM EDT) Blood Bank Lab Only (Blood Bank Lab Only) 06/24/2024 11:26 AM EDT 06/26/2024 8:52 AM EDT us Moises Estrada MD LAB BLOOD BANK TEST ORDERAB LES Final Result Performing Organization Address [facility] Co de Phone Number BLOOD BANK [address] [place] [address], * Bill Only Isoagglutinin Titer (06/24/2024 11:26 AM EDT) Blood Bank Lab Only (Blood Bank Lab Only) 06/24/2024 11:26 AM EDT 06/26/2024 8:52 AM EDT us Moises Estrada MD LAB BLOOD BANK TEST ORDERAB LES Final Result Performing Organization Address [facility] de Phone Number BLOOD BANK [address] [place] [address], * Bill Only Isoagglutinin Titer (06/24/2024 11:26 AM EDT) Blood Bank Lab Only (Blood Bank Lab Only) 06/24/2024 11:26 AM EDT 06/26/2024 8:52 AM EDT Moises Estrada MD LAB BLOOD BANK TEST ORDERAB LES Final Result Performing Organization Address [facility] Co de Phone Number BLOOD BANK [address] [place] [address], documented in this encounter Visit Diagnoses Diagnosis General medical exam Unspecified general medical examination documented in this encounter Care Teams Paint Roller Covers Supervisor Relationship Specialty Start Date End Date Willi Frost MD [address] [place] [address] PCP - General 06/11/24 documented as of this encounter
--- OUTSIDE RECORDS SUMMARY | 2024-09-17 14:42 | XMS_ITS | Encounter Summary ---
Author Organization [facility] Address [address] [place] [address] Care Team Providers Care News Copy Editor Name Role Phone Willi Frost MD Primary Care Provider [phone] Reason for Referral * Imaging (Routine) - Pending Review Specialty Diagnoses / Procedures Referred By Contac t Referred To Contact Radiology Diagnoses CML (chronic myelocytic leukemia) (CMS/HCC) Procedures IR Tunneled Central Venous Catheter Placement 5+ Years Consult to Interventional Radiology Mk Pastrana MD 800 [facility] [address] [place] [address] Phone: tel: fax: Referral ID Status Reason Start Date Expiration Date V isits Requested Visits Authorized [id number] Pending Review 09/17/2024 03/19/2026 1 1 Encounter Details Date Type Department Care Team (Late st Contact Info) Description 09/17/2024 Orders Only [facility] CC Hematology/BMT and Cellular Therapy Program [address] [place] [address] Leo De Souza, RN [facility] CML (chronic myelocytic leukemia) (CMS/HCC) (Primary Dx) [...] Upcoming Encounters Date Type Department Care Team ([facility] Contact Info) Description 09/25/2024 10:30 AM EDT Clinical Support P[facility] CC Hematology/BMT and Cellular Therapy Program [address] [address] 09/25/2024 11:00 AM EDT Office Visit [facility] CC Hematology/BMT and Cellular Therapy Program [address] [address] Elena Ledezma, CHIEF DOG LICENSE INSPECTOR 800 [facility] [address] [place] [phone] 09/25/2024 2:00 PM EDT Appointment PAV CC Echo 800 [facility] [address] [place] [address] 09/25/2024 3:00 PM EDT Appointment PAV H Pulmonary Function Testing [address] [place] [address] 10/01/2024 1:00 PM EDT Clinical Support [facility] CC Hematology/BMT and Cellular Therapy Program [address] [phone] 10/01/2024 2:00 PM EDT Office Visit [facility] CC Hematology/BMT and Cellular Therapy Program [address] [address] 10/03/2024 8:30 AM EDT Clinical Support [facility] CC Hematology/BMT and Cellular Therapy Program [address] [address] 10/03/2024 9:00 AM EDT Procedure Visit [facility] CC Hematology/BMT and Cellular Therapy Program [address] [phone] Bhavana Bella, CHIEF DOG LICENSE INSPECTOR 800 [facility] [address] [place] [phone] 10/10/2024 Hospital Encounter PAV A Inpatient [facility] [address] [place] [address] Mk Pastrana MD 800 [facility] [address] [place] [address] Scheduled Orders Name Type Priority Associated Diagnoses Orde r Schedule IR Tunneled Central Venous Catheter Placement 5+ Years Imaging Routine CML (chronic myelocytic leukemia) (CMS/HCC) Expected: 10/09/2024, Expires: 03/21/2026 documented as of this encounter Visit Diagnoses Diagnosis CML (chronic myelocytic leukemia) (CMS/HCC)- Primary Chronic myeloid leukemia, without mention of having achieved remission documented in this encounter Additional Health Concerns Assessment Noted Time A Body Mass Index follow-up plan has been documented for the patient 09/11/2024 6:12 PM EDT documented as of this encounter Care Teams News Copy Editor Relationship Specialty Start Date End Date Willi Frost MD [address] [place] [address] PCP - General 06/11/24 documented as of this encounter
--- OUTSIDE RECORDS SUMMARY | 2024-09-17 14:42 | XMS_ITS ---
Author Organization [facility] Address [address] [place] [address] Care Team Providers Care Flight Line Mechanic Name Role Phone Willi Frost MD Primary Care Provider Active Problems Problem Noted Date Diagnosed Date CML (chronic myelocytic leukemia) 09/10/2024 Current Treatment and Therapy Plans HEM/BMT Blood Administration for Outpatient* Plan Start Date:09/10/2024 Plan Provider:Bhavana Bella APRN Linked Problems CML (chronic myelocytic leuk emia) (CMS/HCC) Treatment Medications No medications scheduled. Past Treatment and Therapy Plans No past plan information found. 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 Not documented N/A N/A * Cell Therapy Appointments (08/17/2024 - 10/17/2024) When Visit Type With Description 08/20/2024 Office Visit Luiz Gibbons Encounter f or antineoplastic chemotherapy (Primary Dx); CML (chronic myelocytic leukemia) (CMS/HCC); Hyperbilirubinemia; CML (chronic myeloid leukemia) (CMS/HCC); Hepatosplenomegaly 09/05/2024 Office Visit Luiz Mcleod Canceled (Chin rubi: Reschedule/Conflict ) 09/10/2024 Blasting Entryman Visit Suresh Leroy 09/25/2024 Office Visit Luiz Mcleod 10/01/2024 Pulmonary Functions Test Pulmonology Can celed (Provider: Nitinmptiffany) 10/03/2024 Procedure Ana M Wan
--- OUTSIDE RECORDS SUMMARY | 2024-09-17 14:42 | XMS_ITS | Encounter Summary ---
Author Organization [facility] Address [address] [place] [address] Care Team Providers Care Filler In Name Role Phone Willi Frost MD Primary Care Provider [phone] Encounter Details Date Type Department Care Team ([facility] st Contact Info) Description 08/01/2024 Telephone P[facility] CC Hematology/BMT and Cellular Therapy Program [address] [place] [address] Mk Pastrana MD 800 [facility] [address] [place] [phone] Social History Tobacco Use Types Packs/Day Years [...] encounter Miscellaneous Notes * Telephone Encounter - Virgilio King RN - 08/01/2024 3:56 PM EDT RN spoke with pt and placed a referral for the smoking cessation program. Pt made aware and agreeable at this time. * Telephone Encounter - Yelena Hubbard - 08/01/2024 11:38 AM EDT Amita called and requested to speak to Virgilio regarding help to quit smoking. Best number to contact is [phone]. documented in this encounter Plan of Treatment Upcoming Encounters Date Type Department Care Team ([facility] Contact Info) Description 09/25/2024 10:30 AM EDT Clinical Support P[facility] CC Hematology/BMT and Cellular Therapy Program [address] [address] 09/25/2024 11:00 AM EDT Office Visit [facility] CC Hematology/BMT and Cellular Therapy Program [address] [address] Elena Ledezma, WIRE INSPECTOR 800 [facility] [address] [place] [phone] 09/25/2024 2:00 PM EDT Appointment PAV CC Echo 800 [facility] 2nd [place] [address] 09/25/2024 3:00 PM EDT Appointment PAV H Pulmonary Function Testing 800 [place] [address] 10/01/2024 1:00 PM EDT Clinical Support P[facility] CC Hematology/BMT and Cellular Therapy Program [address] [address] 10/01/2024 2:00 PM EDT Office Visit [facility] CC Hematology/BMT and Cellular Therapy Program [address] [address] 10/03/2024 8:30 AM EDT Clinical Support [facility] CC Hematology/BMT and Cellular Therapy Program [address] [address] 10/03/2024 9:00 AM EDT Procedure Visit [facility] CC Hematology/BMT and Cellular Therapy Program [address] [place] [phone] Bhavana Bella, WIRE INSPECTOR 800 [facility] [address] [place] [phone] 10/10/2024 Hospital Encounter PAV A Inpatient [facility] [address] [place] [phone] Mk Pastrana MD 800 [facility] [address] [place] [phone] documented as of this encounter Visit Diagnoses Not on filedocumented in this encounter Care Teams Filler In Relationship Specialty Start Date End Date Willi Frost MD [address] [place] [address] [address] [place] [address] PCP - General 06/11/24 documented as of this encounter
--- OUTSIDE RECORDS SUMMARY | 2024-09-17 14:42 | XMS_ITS | Encounter Summary ---
Author Organization [facility] Address [address] [place] [address] Care Team Providers Care Hide Mill Worker Name Role Phone Willi Frost MD Primary Care Provider + [phone] Reason for Referral * Imaging (Routine) - Authorized Specialty Diagnoses / Procedures Referred By Contac t Referred To Contact Cardiology Diagnoses CML (chronic myelocytic leukemia) ([facility]/HCC) Procedures Echo, Adult Transthoracic Complete Mk Pastrana MD [address] [facility] [address] [address] Phone: tel: fax: Referral ID Status Reason Start Date Expiration Date Visits Requested Visits Authorized [id number] Authorized Perform Procedure 09/11/2024 03/13/2026 1 1 * Consultation (Routine) - Authorized Specialty Diagnoses / Procedures Referred By Contac t Referred To Contact Diagnoses CML (chronic myelocytic leukemia) ([facility]/HCC) Mk Pastrana MD [address] [address] Phone: tel: fax: Referral ID Status Reason Start Date Expiration Date Visits Requested Visits Authorized [id number] Authorized Specialty Services Required 09/11/2024 03/13/2026 1 1 * Genetic Testing (Routine) - Authorized Specialty Diagnoses / Procedures Referred By Contadrián t Referred To Contact Lab Diagnoses CML (chronic myelocytic leukemia) (CMS/HCC) Procedures STR, Patient Specimen Mk Pastrana MD [address] [facility] [address] [address] Phone: tel: fax: Referral ID Status Reason Start Date Expiration Date V isits Requested Visits Authorized [id number] Authorized 09/11/2024 03/13/2026 1 1 Encounter Details Date Type Department Care Team ([facility] Contact Info) Description 09/11/2024 Orders Only [facility] Hematology/BMT and Cellular Therapy Program [address] [phone] Leo De Souza RN [facility] HEMATOLOGY PROGRAM CLINIC CML (chronic myelocytic leukemia) ([facility]/HCC) (Primary Dx) Social History Tobacco Use Types [...] Date Type Department Care Team ([facility] Contact Info) Description 09/25/2024 10:30 AM EDT Clinical Support [facility] Hematology/BMT and Cellular Therapy Program [address] [phone] 09/25/2024 11:00 AM EDT Office Visit [facility] Hematology/BMT and Cellular Therapy Program [address] [phone] Elena Ledezma, [employer] [address] [facility] [address] [address] 09/25/2024 2:00 PM EDT Appointment [facility] Echo 800 [facility] [address] [place] [phone] 09/25/2024 3:00 PM EDT Appointment [facility] H Pulmonary Function Testing [address] [place] [phone] 10/01/2024 1:00 PM EDT Clinical Support [facility] Hematology/BMT and Cellular Therapy Program [address] [phone] 10/01/2024 2:00 PM EDT Office Visit [facility] Hematology/BMT and Cellular Therapy Program [address] [phone] 10/03/2024 8:30 AM EDT Clinical Support [facility] Hematology/BMT and Cellular Therapy Program [address] [phone] 10/03/2024 9:00 AM EDT Procedure Visit [facility] Hematology/BMT and Cellular Therapy Program [address] [phone] Bhavana Bella, MARCY 800 [facility] [address] [phone] 10/10/2024 Hospital Encounter [facility] A Inpatient [facility] [address] [place] [phone] Mk Pastrana MD [address] [facility] [address] [place] [phone] Scheduled Orders Name Type Priority Associated Diagnoses Order Schedule CBC and Differential Lab Routine CML (chronic myelocytic leukemia) (CMS/HCC) Expected: 09/30/2024, Expires: 03/15/2026 CMP Lab Routine CML (chronic myelocytic leukemia) (CMS/HCC) Expected: 09/30/2024, Expires: 03/15/2026 ABO/Rh Type Lab Routine CML (chronic myelocytic leukemia) (CMS/HCC) Expected: 09/30/2024, Expires: 03/15/2026 Infectious disease markers cell therapy lab Lab Routine CML (chronic myelocytic leukemia) ([facility]) Expected: 09/25/2024, Expires: 03/15/2026 Thyroid Stimulating Hormone, Plasma Lab Routine CML (chronic myelocytic leukemia) ([facility]) Expected: 09/30/2024 (Approximate), Expires: 03/15/2026 LDH Lab Routine CML (chronic myelocytic leukemia) ([facility]) Expected: 09/30/2024 (Approximate), Expires: 03/15/2026 Ferritin Lab Routine CML (chronic myelocytic leukemia) ([facility]) Expected: 09/30/2024, Expires: 03/15/2026 Creatinine Clearance, Serum and 24-Hour Urine Lab Routine CML (chronic myelocytic leukemia) ([facility]) Expected: 09/30/2024, Expires: 03/15/2026 Pulmonary function testing PFT Routine CML (chronic myelocytic leukemia) ([facility]) Expected: 09/30/2024, Expires: 03/15/2026 XR Chest 2 Views Imaging Routine CML (chronic myelocytic leukemia) ([facility]) Expected: 09/30/2024 (Approximate), Expires: 03/15/2026 ECG Adult ECG Routine CML (chronic myelocytic leukemia) ([facility]) Expected: 09/30/2024, Expires: 03/15/2026 Stanislaw Fontanez Virus (EBV) Quantitative PCR Lab Routine CML (chronic myelocytic leukemia) ([facility]) Expected: 09/30/2024 (Approximate), Expires: 03/15/2026 Toxoplasma gondii antibody, IgG Lab Routine CML (chronic myelocytic leukemia) ([facility]) Expected: 09/30/2024 (Approximate), Expires: 03/15/2026 HLA Antibody Testing (LSA) Lab Routine CML (chronic myelocytic leukemia) ([facility]) Expected: 09/30/2024 (Approximate), Expires: 03/15/2026 STR, Patient Specimen Lab Routine CML (chronic myelocytic leukemia) ([facility]) Expected: 09/30/2024 (Approximate), Expires: 03/15/2026 Prothrombin Time/INR Lab Routine CML (chronic myelocytic leukemia) (CMS/HCC) Expected: 09/30/2024 (Approximate), Expires: 03/15/2026 APTT Lab Routine CML (chronic myelocytic leukemia) ([facility]/HCC) Expected: 09/30/2024 (Approximate), Expires: 03/15/2026 Echo, Adult Transthoracic Complete Echocardiography Routine CML (chronic myelocytic leukemia) (CMS/HCC) 1 Occurrences starting 09/11/2024 until 03/15/2026 Scheduled Referrals Name Type Priority Associated Diagnoses Order Schedule Ambulatory Oncology Referral to Psych ONC Counseling Outpatient Referral Routine CML (chronic myelocytic leukemia) (CMS/HCC) Expected: 09/30/2024, Expires: 03/15/2026 documented as of this encounter Visit Diagnoses Diagnosis CML (chronic myelocytic leukemia) ([facility])- Primary Chronic myeloid leukemia, without mention of having achieved remission documented in this encounter Additional Health Concerns Assessment Noted Time A Body Mass Index follow-up plan has been documented for the patient 09/11/2024 6:12 PM EDT documented as of this encounter Care Teams Hide [employer] Worker Relationship Specialty Start Date End Date Willi Frost MD [address] [place] [address] [address] [place], [place] [id number] PCP - General 06/11/24 documented as of this encounter
--- OUTSIDE RECORDS SUMMARY | 2024-09-17 14:42 | XMS_ITS | Clinical Summary ---
Author Organization [facility] Address [address] [place] [address] Care Team Providers Care [employer] Teacher Name Role Phone Willi Frost MD Primary Care Provider [phone] Allergies No known active allergies Medications Asciminib HCl 40 MG tablet Take 40 mg by mouth daily. 60 tablet 2 5 Active cetirizine (ZyrTEC) 10 MG tablet Take 1 tablet by mouth daily. 7 tablet 5 Active amoxicillin (Amoxil) 500 MG capsuleIndicati ons:CML (chronic myelocytic leukemia) (CMS/HCC) Take 4 capsules by mouth 1 time for 1 dose. 30 minutes prior to procedure 4 capsule 5 08/29/19 25 Active Problems Problem Noted Date Diagnosed Date CML (chronic myelocytic leukemia) 09/10/2024 Encounters Date Type Department Care Team Description 09/17/2024 Orders Only [facility] Hematology/BMT and Cellular Therapy Program [address] [place] [address] Leo De Souza, RN CML (chronic myelocytic leukemia) (CMS/HCC) (Primary Dx) 09/11/2024 3:00 PM EDT Office Visit [facility] Adult Dentistry [address] [place] [address] Michelle Garza Cancer (CMS/HCC) (Primary Dx); Extraction of tooth needed 09/11/2024 Travel 09/11/2024 Orders Only [facility] Hematology/BMT and Cellular Therapy Program [address] [phone] Leo De Souza, RN CML (chronic myelocytic leukemia) (CMS/HCC) (Primary Dx) 09/10/2024 1:34 PM EDT - 09/10/2024 11:59 PM EDT Hospital Encounter [facility] [address] [place] [address] CML (chronic myelocytic leukemia) (CMS/HCC) (Primary Dx) Discharge Disposition: Home or Self Care 09/10/2024 11:30 AM EDT Office Visit [facility] Hematology/BMT and Cellular Therapy Program [address] [phone] Bhavana Bella APRN CML (chronic myelocytic leukemia) (CMS/HCC) (Primary Dx) 09/10/2024 11:00 AM EDT Clinical Support [facility] Hematology/BMT and Cellular Therapy Program [address] [phone] Tony Foreman RN 09/10/2024 Telephone [facility] Hematology/BMT and Cellular Therapy Program [address] [phone] Tg Rodgers RN 09/10/2024 Travel 08/28/2024 2:00 PM EDT Office Visit [facility] Adult [facility] [address] [place] [address] Michelle Garza CML (chronic myelocytic leukemia) (CMS/HCC) 08/28/2024 8:29 AM EDT - 08/28/2024 11:59 PM EDT Hospital Encounter [facility] Ultrasound [address] [place] [address] CML (chronic myelocytic leukemia) (CMS/HCC); Hyperbilirubinemia; Hepatosplenomegaly Discharge Disposition: Home or Self Care 08/28/2024 Social Work Psych Oncology [address] [place] [address] Michelle Gamez LCSW 08/28/2024 Orders Only [facility] Hematology/BMT and Cellular Therapy Program [address] [place] [address] Jojo Iyer, Yoli CML (chronic myelocytic leukemia) ([facility]/HCC) (Primary Dx) 08/28/2024 Telephone [facility] Hematology/BMT and Cellular Therapy Program [address] [phone] Jocelin Ahuja RN critical lab 08/28/2024 Travel 08/27/2024 Travel 08/20/2024 9:30 AM EDT Office Visit [facility] Hematology/BMT and Cellular Therapy Program [address] [phone] Mk Pastrana MD Encounter for antineoplastic chemotherapy (Primary Dx); CML (chronic myelocytic leukemia) (CMS/HCC); Hyperbilirubinemia; CML (chronic myeloid leukemia) (CMS/HCC); Hepatosplenomegaly 08/20/2024 9:00 AM EDT Clinical Support [facility] Hematology/BMT and Cellular Therapy Program [address] [phone] 08/20/2024 Social Work Psych Oncology [address] [place] [address] AnamariadionMichelle, [facility] 08/20/2024 Travel 08/13/2024 Lab Requisition [facility] Lab [address] [place] [address] Mk Pastrana MD Chronic myeloid leukemia, BCR/ABL-positive, 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) 08/01/2024 Telephone [facility] Hematology/BMT and Cellular Therapy Program [address] [place] [address] Mk Pastrana MD 07/30/2024 Orders Only [facility] Hematology/BMT and Cellular Therapy Program [address] [phone] Virgilio King, RN CML (chronic myelocytic leukemia) (CMS/HCC); Smoker 07/24/2024 11:00 AM EDT Office Visit [facility] Hematology/BMT and Cellular Therapy Program [address] [phone] Mk Pastrana MD CML (chronic myelocytic leukemia) ([facility]) (Primary Dx); Hyperbilirubinemia; Encounter for antineoplastic chemotherapy 07/24/2024 10:30 AM EDT Clinical Support [facility] Hematology/BMT and Cellular Therapy Program [address] [phone] Gisselle Shaffer RN 07/24/2024 Travel 07/18/2024 Telephone [facility] Hematology/BMT and Cellular Therapy Program [address] [phone] Mk Pastrana MD 07/15/2024 Telephone [facility] [address] [place] [address] Saskia Welch, PharmD 07/12/2024 Telephone [facility] [address] [place] [address] Brendan Flores, PharmD 07/12/2024 Orders Only [facility] Hematology/BMT and Cellular Therapy Program [address] [phone] Jojo Iyer, PharmD 07/11/2024 Telephone [facility] [address] [phone] Dental, Surgeon, 07/10/2024 Telephone [facility] [address] [phone] Dental, Surgeon, 07/09/2024 Orders Only [facility] Hematology/BMT and Cellular Therapy Program [address] [phone] Michelle Sims, RN CML (chronic myelocytic leukemia) ([facility]/HCC) (Primary Dx) 07/09/2024 Telephone [facility] Hematology/BMT and Cellular Therapy Program [address] [place] [address] Mk Pastrana MD 07/04/2024 Telephone [facility] Hematology/BMT and Cellular Therapy Program [address] [place] [address] Virgilio King, RN 07/01/2024 Telephone [facility] Hematology/BMT and Cellular Therapy Program [address] [phone] Mk Pastrana MD 06/28/2024 Orders Only [facility] Hematology/BMT and Cellular Therapy Program [address] [phone] Michelle Sims RN 06/28/2024 Telephone [facility] Hematology/BMT and Cellular Therapy Program [address] [phone] Mk Pastrana MD 06/26/2024 Lab Requisition [facility] Blood Bank [address] [place] [address] Moises Estrada MD General medical exam 06/25/2024 Lab Requisition [facility] [address] [place] [address] Dary Vincent APRN Chronic myeloid leukemia, BCR/ABL-positive, not having achieved remission ([facility]/HCC) 06/20/2024 Telephone [facility] Hematology/BMT and Cellular Therapy Program [address] [place] [address] Mk Pastrana MD from Last 3 Months Social History Tobacco Use Types Packs/Day Years [...] PM EST Sexual Orientation Not on file Last Filed Vital Signs Vital Sign Reading Time Taken Comments Blood Pressure 148/92 09/11/2024 3:36 PM EDT Pulse 76 09/11/2024 3:36 PM EDT Temperature 36.7 C (98 F) 09/10/2024 3:26 PM EDT Respiratory Rate 16 09/10/2024 3:26 PM EDT Oxygen Saturation 97% 09/10/2024 3:26 PM EDT Inhaled Oxygen Concentration - - Weight 61.3 kg (135 lb 2.3 oz) 09/10/2024 1:35 P M EDT Height 165.1 cm (5' 5 ) 09/10/2024 1:35 PM EDT Body Mass Index 22.49 09/10/2024 1:35 PM EDT Plan of Treatment Upcoming Encounters Date Type Department Care Team ([facility] st Contact Info) Description 09/25/2024 10:30 AM EDT Clinical Support [facility] Hematology/BMT and Cellular Therapy Program [address] [phone] 09/25/2024 11:00 AM EDT Office Visit [facility] Hematology/BMT and Cellular Therapy Program [address] [phone] Elena Ledezma, MARCY 800 [facility] [address] [place] [phone] 09/25/2024 2:00 PM EDT Appointment [facility] Echo 800 [facility] [address] [place] [address] 09/25/2024 3:00 PM EDT Appointment [facility] Pulmonary Function Testing [address] [place] [phone] 10/01/2024 1:00 PM EDT Clinical Support [facility] Hematology/BMT and Cellular Therapy Program [address] [address] 10/01/2024 2:00 PM EDT Office Visit [facility] Hematology/BMT and Cellular Therapy Program [address] [place] [address] 10/03/2024 8:30 AM EDT Clinical Support [facility] Hematology/BMT and Cellular Therapy Program [address] [place] [address] 10/03/2024 9:00 AM EDT Procedure Visit [facility] Hematology/BMT and Cellular Therapy Program 750 [facility], [address] [place] [address] [place] [phone] Bhavana Bella, VAL[employer] REPAIRER RECLAMATION 800 [facility] [address] [place] [phone] 10/10/2024 Hospital Encounter [facility] Inpatient [facility] [address] [place] [phone] Mk Pastrana MD 800 [facility] [address] [place] [phone] Health Maintenance Due Date Last Done Comments Dental Prophylaxis 1972 Dental X-Ray: Bitewings 1972 [facility]-Infant/Child/Adol SDOH Screenings 1972 [id number] Vaccine (#1) 1977 [facility]- SDOH Screenings 1990 [facility]-Adult SDOH Screenings 1990 [facility]-DTaP,Tdap,and Td Vaccine s (1 - Tdap) 1991 [facility]-Hepatitis A Vaccines (1 of 2 - Risk 2-dose series) 1991 [facility]-Hepatitis B Vaccines (1 of 3 - 19+ 3-dose series) 1991 [facility]-Pneumococcal Vaccine: 50 + Years (1 of 2 - PCV) 1991 [facility]-Zoster Vaccines (1 of 2) 1991 [facility]-Pap Smear 1993 [facility]-Cervical Cancer Screening 2002 [facility]-HPV/Cotest 2002 CT Colonography 2017 Colonoscopy 2017 FIT-DNA 2017 FIT 2017 FOBT 2017 Sigmoidoscopy 2017 [facility]-Colorectal Cancer Screening 2017 [facility]-Breast Cancer Screening 2022 [facility]-Influenza Vaccine (Seaso n Ended) 2024 Dental Oral Exam 03/01/2025 08/28/2024 [facility]-Depression Screening 04/30/2025 04/30/2024 Dental X-Ray: Full Mouth 08/30/2027 08/28/2024 [facility]-HIV Screening Completed 04/30/2024 [facility]-Hepatitis C Screening Completed 2024, 04/30/2024 HPV Vaccines Aged Out No longer eligi ble based on patient's age to complete this topic [facility]-HIB Vaccines Aged Out No longer e ligible based on patient's age to complete this topic [facility]-IPV Vaccines Aged Out No longer e ligible based on patient's age to complete this topic [facility]-Rotavirus Vaccines Aged Out No lo nger eligible based on patient's age to complete this topic Procedures Procedure Name Priority Date/Time Associated Diagnosis Comments CBC WITH AUTO DIFFERENTIAL STAT 09/11/2024 3:05 PM EDT Extraction of tooth needed 28 EXTRACTION, ERUPTED TOOTH OR EXPOSED ROOT [...] 3:00 PM EDT Extraction of tooth needed PLATELET COUNT, BLOOD STAT 09/10/2024 3:41 PM EDT TRANSFUSE PLATELETS Routine 09/10/2024 2 :40 PM EDT CML (chronic myelocytic leukemia) ([facility]/HCC) PREPARE PLATELETS Routine 09/10/2024 2:0 6 PM EDT CML (chronic myelocytic leukemia) ([facility]) QUANT DETECTION OF BCR-ABL1 MAJOR (P210) (SO) Routine 09/10/2024 11:12 AM EDT CML (chronic myelocytic leukemia) ([facility]) LIPASE, PLASMA Routine 09/10/2024 11:12 AM EDT CML (chronic myelocytic leukemia) ([facility]) AMYLASE, PLASMA Routine 09/10/2024 11:12 AM EDT CML (chronic myelocytic leukemia) ([facility]) PHOSPHORUS, PLASMA Routine 09/10/2024 11 :12 AM EDT CML (chronic myelocytic leukemia) ([facility]) MAGNESIUM, PLASMA Routine 09/10/2024 11: 12 AM EDT CML (chronic myelocytic leukemia) ([facility]) LACTATE DEHYDROGENASE, PLASMA Routine 09/10/2024 11:12 AM EDT CML (chronic myelocytic leukemia) ([facility]) COMPREHENSIVE METABOLIC PANEL, PLASMA Routine 09/10/2024 11:12 AM EDT CML (chronic myelocytic leukemia) ([facility]) CBC WITH AUTO DIFFERENTIAL Routine 09/10/2024 11:12 AM EDT CML (chronic myelocytic leukemia) ([facility]) PANORAMIC RADIOGRAPHIC IMAGE Routine 08/28/2024 2:00 PM EDT CML (chronic myelocytic leukemia) (CMS/HCC) COMPREHENSIVE ORAL EVALUATION - NEW OR ESTABLISHED PATIENT Routine 08/28/2024 2:00 PM EDT CML (chronic myelocytic leukemia) (CMS/HCC) US ABDOMEN FOCUSED REGION Routine 08/28/2024 9:00 AM EDT CML (chronic myelocytic leukemia) (CMS/HCC) Hyperbilirubinemia Hepatosplenomegaly QUANT DETECTION OF BCR-ABL1 MAJOR (P210) (SO) [...] leukemia) (CMS/HCC) CBC WITH AUTO DIFFERENTIAL Routine 08/20/2024 9:00 [...] AM EDT CML (chronic myelocytic leukemia) (CMS/HCC) QUANT DETECTION OF BCR-ABL1 MAJOR (P210) (SO) Routine 07/24/2024 10:56 AM EDT CML (chronic myelocytic leukemia) (CMS/HCC) BILL ONLY TYPE & SCREEN Routine 06/25/19 11:26 AM EDT General medical exam BILL ONLY ISOAGGLUTININ TITER Routine 06/24/2024 11:26 AM EDT General medical exam BILL ONLY ISOAGGLUTININ TITER Routine 06/24/2024 11:26 AM EDT General medical exam BILL ONLY HLA NGS HIGH RESOLUTION TYPING BMT NMDP DONOR Routine 06/24/2024 11:26 AM EDT Chronic myeloid leukemia, BCR/ABL-positive, 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) DONOR HLA TYPING Routine 06/24/2024 11:2 6 AM EDT Chronic myeloid leukemia, BCR/ABL-positive, 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) NMDP DONOR SEARCH AND CELL ACQUISITION Routine 06/24/2024 9:00 AM EDT Chronic myeloid leukemia, BCR/ABL-positive, 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) HEPATITIS C ANTIBODY W/REFLEX TO HCV QUANT PCR Routine 04/30/2024 12:49 PM EST CML (chronic myelocytic leukemia) (CMS/HCC) HIV 1/2 ANTIBODY/ANTIGEN SCREEN WITH REFLEX TO HIV I/II DIFFERENTIATION Routine 04/30/2024 12:49 PM EST CML (chronic myelocytic leukemia) ([facility]/HCC) from Last 3 Months or Most Recently Relevant to Health Maintenance Results * (ABNORMAL) CBC and differential (09/11/2024 3:05 PM EDT) Only the most recent of4 resultswithin the time period is included. WBC Count 2.47(L) 3.70 - 10.30 10*3/uL LAB HEMATOLOGY METHOD 09/11/2024 6:39 PM EDT [facility] RBC Count 3.47(L) 3.90 - 5.20 10*6/uL LAB HEMATOLOGY METHOD 09/11/2024 6:39 PM EDT [facility] HGB 11.2 11.2 - 15.7 g/dL LAB HEMATOLOGY METHOD 09/11/2024 6:39 PM EDT [facility] HCT 32.9(L) 34.0 - 45.0 % LAB HEMATOLOGY METHOD 09/11/2024 6:39 PM EDT [facility] Platelet Count 57(L) 155 - 369 10*3/uL LAB HEMATOLOGY METHOD 09/11/2024 6:39 PM EDT [facility] MCV 95 79 - 98 fL LAB HEMATOLOGY METHOD 09/11/2024 6:39 PM EDT [facility] MCH 32.3(H) 26.0 - 32.0 pg LAB HEMATOLOGY METHOD 09/11/2024 6:39 PM EDT [facility] MCHC 34.0 30.7 - 35.5 g/dL LAB HEMATOLOGY METHOD 09/11/2024 6:39 PM EDT [facility] RDW 17.1(H) 11.5 - 14.5 % LAB HEMATOLOGY METHOD 09/11/2024 6:39 PM EDT [facility] MPV 9.7 8.8 - 12.5 fL LAB HEMATOLOGY METHOD 09/11/2024 6:39 PM EDT [facility] nRBC 0.0 <=0.0 per 100 WBCs LAB HEMATOLOGY METHOD 09/11/2024 6:39 PM EDT [facility] Differential Type Automated LAB HEMATOLOGY METHOD 09/11/2024 6:39 PM EDT [facility] Neutrophils % 42 % LAB HEMATOLOGY METHOD 09/11/2024 6:39 PM EDT [facility] Lymphocytes % 47 % LAB HEMATOLOGY METHOD 09/11/2024 6:39 PM EDT [facility] Monocytes % 5 % LAB HEMATOLOGY METHOD 09/11/2024 6:39 PM EDT [facility] Eosinophils % 0 % LAB HEMATOLOGY METHOD 09/11/2024 6:39 PM EDT [facility] Basophils % 0 % LAB HEMATOLOGY METHOD 09/11/2024 6:39 PM EDT [facility] Immature Granulocytes % 6 % LAB HEMATOLOGY METHOD 09/11/2024 6:39 PM EDT [facility] Neutrophils Absolute 1.03(L) 1.60 - 6.10 10*3/uL LAB HEMATOLOGY METHOD 09/11/2024 6:39 PM EDT [facility] Lymphocytes Absolute 1.17(L) 1.20 - 3.90 10*3/uL LAB HEMATOLOGY METHOD 09/11/2024 6:39 PM EDT [facility] Monocytes Absolute 0.11(L) 0.30 - 0.90 10*3/uL LAB HEMATOLOGY METHOD 09/11/2024 6:39 PM EDT [facility] Eosinophils Absolute 0.01 0.00 - 0.50 10*3/uL LAB HEMATOLOGY METHOD 09/11/2024 6:39 PM EDT [facility] Basophils Absolute 0.01 0.00 - 0.10 10*3/uL LAB HEMATOLOGY METHOD 09/11/2024 6:39 PM EDT [facility] Immature Granulocytes Absolute 0.14(H) 0.00 - 0.06 10*3/uL LAB HEMATOLOGY METHOD 09/11/2024 6:39 PM EDT [facility] Blood Venous blood specimen / Unknown Venipuncture / Unknown 09/11/2024 3:05 PM EDT 09/11/2024 3:06 PM EDT Narrative [facility] - 09/11/2024 6:39 PM EDT Therapeutic decision making should be based on absolute values, rather than percentages. us Shameka Combs DMD LAB BLOOD ORDERABLES Final R esult [facility] [address] [place] [address] * Transfuse platelets, Irradiated (09/10/2024 4:03 PM EDT) us Bhavana Bella APRN BLOOD TRANSFUSION ORDERABL ES Final Result * (ABNORMAL) Platelet Count, Blood (09/10/2024 3:41 PM EDT) [facility] Platelet Count 56(L) 155 - 369 10*3/uL LAB HEMATOLOGY METHOD 09/10/2024 3:45 PM EDT [facility] Blood Venous blood specimen / Unknown Venipuncture / Unknown 09/10/2024 3:41 PM EDT 09/10/2024 3:43 PM EDT us Bhavana Bella APRN LAB BLOOD ORDERABLES Final Result Performing Organization Address City/[facility] Co de Phone Number HEALTHCARE LAB [address] [place] [address] * Prepare Leukocyte Reduced Platelets: 1 Units, Irradiated, Leukoreduced (09/10/2024 2:06 PM EDT) [facility] Product Code [id number] BLOO D BANK Dispense Status Transfused BLOOD BANK Blood Expiration Date [id number] BLOOD BANK Unit Number [id number] CH B LOOD BANK Product Blood Type 6200 BLOOD BANK Blood Type A+ BLOOD BANK Blood Venous blood specimen / Unknown us Bhavana Bella APRN BLOOD BANK PRODUCT ORDERAB LES Final Result Performing Organization Address [facility] Co de Phone Number BLOOD BANK [address] [place] [address] * (ABNORMAL) Quant Detection of BCR-ABL1 Major (p210) (SO) (09/10/2024 11:12 AM EDT) Only the most recent of3 resultswithin the time period is included. [facility] Quant BCR-ABL1, Major (p210), Source Whole Blood 09/17/2024 9:43 AM EDT [facility] ([facility]) Quant BCR-ABL1, Major (p210), Result Detected(A ) 09/17/2024 9:43 AM EDT [facility] ([facility]) Quant BCR-ABL1, Major (p210), IS Percent 20.4857 % 09/17/2024 9:43 AM [facility] ([facility]) Quant BCR-ABL1, Major (p210), EER See Note 09/17/2024 9:43 AM [facility] ([place]) Blood Venous blood specimen / Unknown Venipuncture / Unknown 09/10/2024 11:12 AM EDT 09/10/2024 11:39 AM EDT [facility] ([place]) - 09/17/2024 9:43 AM EDT [...] (IS; see Zhu MC, et al. Leukemia. 2009;23:2781-2180). METHODOLOGY: Total RNA was isolated and converted [...] CML patients (Ashlee CHÁVEZ, et al. NE. 2003;[id number]). ANALYTICAL SENSITIVITY: Limit of quantification: 0.0032 percent [...] developed and its performance characteristics determined by [facility]. It has not been cleared or approved by the U.S. Food and Drug Administration. This test was performed in a CLIA-certified laboratory and is intended for clinical purposes. Authorized individuals can access the [facility] Enhanced Report with an [facility] Connect account using the following link. Your local lab can assist you in obtaining the patient report if you don't have a Connect account. [email or web address] Performed By: [facility] [address] [place] [address] [employer] Applier: Sunil Gomez MD, PhD CLIA Number: [id number] Elena Ledezma APRN LAB BLOOD ORDERABLES Final Res ult Performing Organization Address City/[facility]/ZIP Co de Phone Number [facility] ([place]) [address] [place] [address] * Phosphorus, Plasma (09/10/2024 11:12 AM EDT) Only the most recent of3 resultswithin the time period is included. Phosphorus, Plasma 3.8 2.5 - 4.5 mg/dL 09/10/2024 12:10 PM EDT [facility] Blood Venous blood specimen / Unknown Venipuncture / Unknown 09/10/2024 11:12 AM EDT 09/10/2024 11:35 AM EDT Elena Ledezma APRN LAB BLOOD ORDERABLES Final Res ult [facility] [address] [place] [address] * Magnesium, Plasma (09/10/2024 11:12 AM EDT) Only the most recent of3 resultswithin the time period is included. Magnesium, Plasma 2.1 1.9 - 2.4 mg/dL 09/10/2024 12:10 PM EDT [facility] Blood Venous blood specimen / Unknown Venipuncture / Unknown 09/10/2024 11:12 AM EDT 09/10/2024 11:35 AM EDT us Elena L Meikel [employer] LAB BLOOD ORDERABLES Final Res ult Performing Organization Address City/[facility]/ZIP Co de Phone Number [facility] [address] [place] [address] * Lipase (09/10/2024 11:12 AM EDT) Only the most recent of3 resultswithin the time period is included. Lipase, Plasma 28 19 - 63 U/L 09/10/2024 12:10 PM EDT [facility] Blood Venous blood specimen / Unknown Venipuncture / Unknown 09/10/2024 11:12 AM EDT 09/10/2024 11:35 AM EDT us Elena L Meikel [employer] LAB BLOOD ORDERABLES Final Res ult Performing Organization Address City/[facility]/ZIP Co de Phone Number [facility] [address] [place] [address] * Lactate Dehydrogenase, Plasma (09/10/2024 11:12 AM EDT) Only the most recent of3 resultswithin the time period is included. LDH, Plasma 188 116 - 250 U/L 09/10/2024 12:10 PM EDT [facility] Comment:Hemolyzed, result ma y be falsely increased. Blood Venous blood specimen / Unknown Venipuncture / Unknown 09/10/2024 11:12 AM EDT 09/10/2024 11:35 AM EDT us Elena Ledezma [employer]ATION LAB BLOOD ORDERABLES Final Res ult Performing Organization Address City/[facility]/ZIP Co de Phone Number [facility] [address] [place] [address] * Amylase (09/10/2024 11:12 AM EDT) Only the most recent of3 resultswithin the time period is included. Amylase 40 27 - 114 U/L 09/10/2024 12:10 PM EDT [facility] Blood Venous blood specimen / Unknown Venipuncture / Unknown 09/10/2024 11:12 AM EDT 09/10/2024 11:35 AM EDT us Elena Ledezma [employer]PAIR[employer]ATION LAB BLOOD ORDERABLES Final Res ult Performing Organization Address [facility] Co de Phone Number [facility] [address] [place] [address] * (ABNORMAL) Comprehensive Metabolic Panel, Plasma (09/10/2024 11:12 AM EDT) Only the most recent of3 resultswithin the time period is included. Glucose, Plasma 67(L) 74 - 99 mg/dL 09/10/2024 12:10 PM EDT [facility] BUN, Plasma 11 7 - 21 mg/dL 09/10/2024 12:10 PM EDT [facility] Creatinine, Plasma 0.60 0.60 - 1.10 mg/dL 09/10/2024 12:10 PM EDT [facility] BUN/Creatinine Ratio 18 09/10/2024 12:10 PM EDT [facility] Sodium, Plasma 140 136 - 145 mmol/L 09/10/2024 12:10 PM EDT [facility] Potassium, Plasma 4.5 3.6 - 4.9 mmol/L 09/10/2024 12:10 PM EDT [facility] Chloride, Plasma 106 97 - 107 mmol/L 09/10/2024 12:10 PM EDT [facility] CO2, Plasma 22 22 - 29 mmol/L 09/10/2024 12:10 PM EDT [facility] Anion Gap 12 6 - 16 mmol/L 09/10/2024 12:10 PM EDT [facility] Total Calcium, Plasma 9.1 8.9 - 10.2 mg/dL 09/10/2024 12:10 PM EDT [facility] Total Protein 6.6 6.3 - 7.9 g/dL 09/10/2024 12:10 PM EDT [facility] Albumin, Plasma 4.1 3.5 - 5.2 g/dL 09/10/2024 12:10 PM EDT [facility] AST, Plasma 16 10 - 35 U/L 09/10/2024 12:10 PM EDT [facility] Comment:Hemolyzed, result ma y be falsely increased. ALT, Plasma 11 10 - 35 U/L 09/10/2024 12:10 PM EDT [facility] Alkaline Phosphatase, Plasma 89 35 - 104 U/L 09/10/2024 12:10 PM EDT [facility] Total Bilirubin, Plasma 0.5 0.2 - 1.1 mg/dL 09/10/2024 12:10 PM EDT [facility] eGFRcr 108.2 mL/min/1.7 3m*2 09/10/2024 12:10 PM EDT [facility] Comment:Reported eGFRcr in m L/min/1.73m2 is based the CKD-EPI 2020 equation that does not use a race coefficient. Blood Venous blood specimen / Unknown Venipuncture / Unknown 09/10/2024 11:12 AM EDT 09/10/2024 11:35 AM EDT us Elena Ledezma APRN LAB BLOOD ORDERABLES Final Res ult [facility] [address] [place] [address] * US Abdomen Focused Region Liver, Spleen [...] ( e 7 mm) - Surgical consult. https://pubs.rsna.org/doi/abs/10.1148/radiol.995299. CRITICAL RESULT: No. COMMUNICATION: Per this written [...] - Size - 4 mm Morphology: Pedunculated jhcs-hh-aum-wall or thin stalk Focal adjacent wall thickening >4mm: not present Polyp # 2 - Size - 4 mm Morphology: Pedunculated jdtt-ry-iff-wall or thin stalk Focal adjacent wall thickening [...] - Size - 4 mm Morphology: Pedunculated evlp-tf-zud-wall or thin stalk Focal adjacent wall thickening >4mm: not present Polyp # 2 - Size - 4 mm Morphology: Pedunculated vzvk-ka-gqb-wall or thin stalk Focal adjacent wall thickening [...] ( e 7 mm) - Surgical consult. https://pubs.rsna.org/doi/abs/10.1148/radiol.559107. CRITICAL RESULT: No. COMMUNICATION: Per this written report. By electronically signing this report, I, the attending physician, attestthat I have personally reviewed the images/data for the aboveexamination(s) and agree with the final edited report. Drafted by Yovanny Guillaume MD on 08/28/2024 9:02 AM Final report signed by Mariza Koo MD on 08/28/2024 9:17 AM Mk Pastrana MD IMG US PROCEDURES Final Resul t * BILL ONLY HLA NGS High Resolution Typing NMDP Donor (RESEARCH ONLY) (06/24/2024 11:26 AM EDT) Blood Venous blood specimen / Unknown 06/24/2024 11:26 AM EDT 06/25/2024 1:01 PM EDT Dary Vincent APRN LAB BLOOD ORDERABLES Final Result Performing Organization Address [facility] de Phone Number [facility] [address] [place] [address], [place] * Bill Only Isoagglutinin Titer (06/24/2024 11:26 AM EDT) Only the most recent of2 resultswithin the time period is included. Blood Bank Lab Only (Blood Bank Lab Only) 06/24/2024 11:26 AM EDT 06/26/2024 8:52 AM EDT Moises Estrada MD LAB BLOOD BANK TEST ORDERAB LES Final Result Performing Organization Address [facility] de Phone Number BLOOD BANK [address] [place] [address], [place] * Bill Only Type & Screen (06/24/2024 11:26 AM EDT) Blood Bank Lab Only (Blood Bank Lab Only) 06/24/2024 11:26 AM EDT 06/26/2024 8:52 AM EDT Moises Estrada MD LAB BLOOD BANK TEST ORDERAB LES Final Result Performing Organization Address [facility]/ZIP Co de Phone Number BLOOD BANK [address] [place] [address], * HLA Typing, Donor (HLATWD) (06/24/2024 11:26 AM EDT) HLA Lab Only (HLA Lab Only) 06/24/2024 11:26 AM EDT 06/25/2024 1:01 PM EDT Dary Vincent APRN LAB BLOOD ORDERABLES Final Result Performing Organization Address [facility] Co de Phone Number [facility] [address] [place] [address], [place] * NMDP Donor Search and Cell Acquisition (06/24/2024 9:00 AM EDT) Service NMDP Management of Unrelated Donor Search 08/13/2024 10:02 PM EDT [facility] Service Date: 06/24/2024 08/13/2024 10:02 PM EDT [facility] NMDP Invoice No.: [id number] 08/13/2024 10:02 PM EDT [facility] Grid Number [id number] 08/13/2024 10:02 PM EDT [facility] NMDP (NMDP Donor Search ) 06/24/2024 9:00 AM EDT 08/13/2024 9:59 PM EDT Mk Pastrana MD LAB BLOOD ORDERABLES Final Re sult Performing Organization Address [facility] Co de Phone Number [facility] [address] [place] [address] * HIV 1 & 2 Antibody/Antigen Screen (04/30/2024 12:49 PM EST) HIV 1 & 2 Antibody/Antigen Screen Non Reactive Non Reactive 04/30/2024 2:08 PM EST [facility] Comment:Screening for HIV 1 & 2 antibodies, and P24 antigen is NONREACTIVE. No confirmatory testing is required. Blood Venous blood specimen / Unknown Venipuncture / Unknown 04/30/2024 12:49 PM EST 04/30/2024 1:26 PM EST Mk Pastrana MD LAB BLOOD ORDERABLES Final Re sult Performing Organization Address [facility] Co de Phone Number [facility] [address] [place] [address] * (ABNORMAL) Hepatitis C antibody (04/30/2024 12:49 PM EST) Hepatitis C Antibody Positive( A) Negative 04/30/2024 2:16 PM EST [facility] Comment:This specimen is heidi ng sent for confirmation by RT-PCR. Blood Venous blood specimen / Unknown Venipuncture / Unknown 04/30/2024 12:49 PM EST 04/30/2024 1:27 PM EST Mk Pastrana MD LAB BLOOD ORDERABLES Final Re sult Performing Organization Address City/[facility] Co de Phone Number [facility] [address] [place] [address] from Last 3 Months or Most Recently Relevant to Health Maintenance Insurance [facility] MEDICAID [facility] MEDICAID DENTAL [facility] MEDICAID Care Teams Middle School Teacher Relationship Specialty Start Date End Date Willi Frost MD [address] [place] [address] PCP - General 06/11/24
--- OUTSIDE RECORDS SUMMARY | 2024-09-17 14:42 | XMS_ITS | Encounter Summary ---
Author Organization [facility] Address [address] [place] [address] Care Team Providers Care Marketing Programs Specialist Name Role Phone Willi Frost MD Primary Care Provider [phone] Encounter Details Date Type Department Care Team (Latest Contact Info) Description 09/11/2024 Travel Social History Tobacco Use Types Packs/Day [...] Hematology/BMT and Cellular Therapy Program [address] [phone] 09/25/2024 11:00 AM EDT Office Visit [facility] Hematology/BMT and Cellular Therapy Program [address] [phone] Elena Ledezma, WATCH ASSEMBLER 800 [facility] [address] [place] [phone] 09/25/2024 2:00 PM EDT Appointment [facility] Echo 800 [facility] 2nd [place] [address] 09/25/2024 3:00 PM EDT Appointment [facility] Pulmonary Function Testing [address] [place] [phone] 10/01/2024 1:00 PM EDT Clinical Support [facility] Hematology/BMT and Cellular Therapy Program [address] [place] [address] [place] [address] 10/01/2024 2:00 PM EDT Office Visit [facility] Hematology/BMT and Cellular Therapy Program [address] [phone] 10/03/2024 8:30 AM EDT Clinical Support [facility] Hematology/BMT and Cellular Therapy Program [address] [place] [phone] 10/03/2024 9:00 AM EDT Procedure Visit [facility] Hematology/BMT and Cellular Therapy Program [address] [place] [address] [place] [phone] Bhavana Bella, WATCH ASSEMBLER 800 [facility] [address] [place] [phone] 10/10/2024 Hospital Encounter [facility] A Inpatient [facility] [address] [place] [phone] Mk Pastrana MD 800 [facility] [address] [place] [phone] documented as of this encounter Visit Diagnoses Not on filedocumented in this encounter Additional Health Concerns Assessment Noted Time A Body Mass Index follow-up plan has been documented for the patient 09/11/2024 6:12 PM EDT documented as of this encounter Care Teams Marketing Programs Specialist Relationship Specialty Start Date End Date Willi Frost MD [facility] [address] [place] [address] PCP - General 06/11/24 documented as of this encounter
--- OUTSIDE RECORDS SUMMARY | 2024-09-17 14:42 | XMS_ITS | Encounter Summary ---
Author Organization [facility] Address [address] [place] [address] Care Team Providers Care Unemployment Specialist Name Role Phone Willi Frost MD Primary Care Provider Encounter Details Date Type Department Care Team (Late Contact Info) Description 06/25/2024 Lab Requisition [facility] [address] [place] [phone] Dary Vincent, GRAVURE PRINTING MACHINIST 800 [facility] [address] [place] [phone] Chronic myeloid leukemia, BCR/ABL-positive, not having achieved [...] Hematology/BMT and Cellular Therapy Program [address] [place] [address] 09/25/2024 11:00 AM EDT Office Visit [facility] Hematology/BMT and Cellular Therapy Program [address] [place] [phone] Elena Ledezma, GRAVURE PRINTING MACHINIST 800 [facility] Cancer [address] [phone] 09/25/2024 2:00 PM EDT Appointment [facility] Echo 800 [facility] 2[address] [place] [phone] 09/25/2024 3:00 PM EDT Appointment [facility] Pulmonary Function Testing [address] [place] [phone] 10/01/2024 1:00 PM EDT Clinical Support [facility] Hematology/BMT and Cellular Therapy Program [address] [place] [address] 10/01/2024 2:00 PM EDT Office Visit [facility] Hematology/BMT and Cellular Therapy Program [address] [place] [address] 10/03/2024 8:30 AM EDT Clinical Support [facility] Hematology/BMT and Cellular Therapy Program [address] [place] [address] 10/03/2024 9:00 AM EDT Procedure Visit [facility] Hematology/BMT and Cellular Therapy Program [address] [phone] Bhavana Bella, GRAVURE PRINTING MACHINIST 800 [facility] Cancer [address] [phone] 10/10/2024 Hospital Encounter [facility] A Inpatient [facility] [address] [place] [address] Mk Pastrana MD 800 [facility] Cancer [address] [phone] documented as of this encounter Procedures Procedure Name Priority Date/Time Associated Diagnosis Comments BILL ONLY HLA NGS HIGH RESOLUTION TYPING BMT NMDP DONOR Routine 06/24/2024 11:26 AM EDT Chronic myeloid leukemia, BCR/ABL-positive, 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) DONOR HLA TYPING Routine 06/24/2024 11:2 6 AM EDT Chronic myeloid leukemia, BCR/ABL-positive, 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) documented in this encounter Results * BILL ONLY HLA NGS High Resolution Typing NMDP Donor (RESEARCH ONLY) (06/24/2024 11:26 AM EDT) Blood Venous blood specimen / Unknown 06/24/2024 11:26 AM EDT 06/25/2024 1:01 PM EDT Dary Vincent GRAVURE PRINTING MACHINIST LAB BLOOD ORDERABLES Final Result Performing Organization Address [facility] Phone Number [facility] [address] [place] [address], * HLA Typing, Donor (HLATWD) (06/24/2024 11:26 AM EDT) HLA Lab Only (HLA Lab Only) 06/24/2024 11:26 AM EDT 06/25/2024 1:01 PM EDT Dary Vincent GRAVURE PRINTING MACHINIST LAB BLOOD ORDERABLES Final Result Performing Organization Address [facility] Phone Number [facility] [address] documented in this encounter Visit Diagnoses Diagnosis Chronic myeloid leukemia, BCR/ABL-positive, 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) documented in this encounter Care Teams Unemployment Specialist Relationship Specialty Start Date End Date Willi Frost MD [address] [place] [address] [address] [place] [address] PCP - General 06/11/24 documented as of this encounter
--- OUTSIDE RECORDS SUMMARY | 2024-09-17 14:42 | XMS_ITS | Encounter Summary ---
Author Organization [facility] Address [address] [place] [address] Care Team Providers Care Faculty I On Call Medical Assistant Name Role Phone Willi Frost MD Primary Care Provider Encounter Details Date Type Department Care Team (Late Contact Info) Description 08/13/2024 Lab Requisition [facility] [address] [place] [phone] Mk Pastrana MD 800 [facility] [address] [place] [phone] Chronic myeloid leukemia, BCR/ABL-positive, not having achieved [...] Hematology/BMT and Cellular Therapy Program [address] [phone] 09/25/2024 11:00 AM EDT Office Visit [facility] Hematology/BMT and Cellular Therapy Program [address] [place] [phone] Elena Ledezma, REDUCING SYSTEM OPERATOR 800 [facility] Cancer [address] [phone] 09/25/2024 2:00 PM EDT Appointment [facility] Echo 800 [facility] 2nd [place] [address] 09/25/2024 3:00 PM EDT Appointment [facility] Pulmonary Function Testing [address] [place] [phone] 10/01/2024 1:00 PM EDT Clinical Support [facility] Hematology/BMT and Cellular Therapy Program [address] [phone] 10/01/2024 2:00 PM EDT Office Visit [facility] Hematology/BMT and Cellular Therapy Program [address] [place] [phone] 10/03/2024 8:30 AM EDT Clinical Support [facility] Hematology/BMT and Cellular Therapy Program [address] [phone] 10/03/2024 9:00 AM EDT Procedure Visit [facility] Hematology/BMT and Cellular Therapy Program [address] [phone] Bhavana Bella, REDUCING SYSTEM OPERATOR 800 [facility] Cancer [address] [phone] 10/10/2024 Hospital Encounter [facility] A Inpatient [facility] [address] [place] [address] Mk Pastrana MD 800 [facility] Cancer [address] [phone] documented as of this encounter Procedures Procedure Name Priority Date/Time Associated Diagnosis Comments NMDP DONOR SEARCH AND CELL ACQUISITION Routine 06/24/2024 9:00 AM EDT Chronic myeloid leukemia, BCR/ABL-positive, 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) documented in this encounter Results * NMDP Donor Search and Cell Acquisition (06/24/2024 9:00 AM EDT) Service NMDP Management of Unrelated Donor Search 08/13/2024 10:02 PM EDT [facility] Service Date: 06/24/2024 08/13/2024 10:02 PM EDT [facility] [id number] 08/13/2024 10:02 PM EDT [facility] Grid Number [id number] 08/13/2024 10:02 PM EDT [facility] NMDP (NMDP Donor Search ) 06/24/2024 9:00 AM EDT 08/13/2024 9:59 PM EDT us Mk Pastrana MD LAB BLOOD ORDERABLES Final Re sult [facility] [address] [place] [address] documented in this encounter Visit Diagnoses Diagnosis Chronic myeloid leukemia, BCR/ABL-positive, 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) documented in this encounter Care Teams Faculty I On Call Medical Assistant Relationship Specialty Start Date End Date Willi Frost MD [address] [place] [address] [address] [place] [address] PCP - General 06/11/24 documented as of this encounter
[2024-09-17 15:12] LABS: Basophils % 0.4 % (0.1-2.0); Eosinophils % 0.8 % (0.1-12.0); Hemoglobin 11.6 g/dL (12.2-16.2); Immature Granulocytes # 0.01 10^3uL; Immature Granulocytes % 0.4 %; Lymphocytes # 1.5 K/mm3 (0.7-4.5); Lymphocytes % 62.8 % (10-50); Mean Corpuscular HGB Conc 33.1 g/dL (31.8-35.4); Mean Corpuscular Hemoglobin 31.4 pg (27.0-31.2); Mean Corpuscular Volume 94.9 fl (81-99); Mean Platelet Volume 9.2 fl (7.4-10.4); Monocytes # 0.1 K/mm3 (0.1-1.0); Monocytes % 2.9 % (1.7-9.3); Neutrophils # 0.8 K/mm3 (1.8-7.8); Neutrophils % 32.7 % (37.0-80.0); Nucleated Red Blood Cells # 0 10^3/uL; Nucleated Red Blood Cells % 0 %; Red Blood Count 3.69 M/mm3 (4.20-5.40); Red Cell Distribution Width 16.6 % (11.5-17.5); Red Cell Distribution Width-SD 57.6 fL; White Blood Count 2.4 K/mm3 (4.8-10.8)
[2024-09-17 15:41] LABS: Platelet Count 38 K/mm3 (142-424)
[2024-09-17 15:42] LABS: MANUAL DIFFERENTIAL MANUAL DIFFERENTIAL (MANUAL DIFF)
[2024-09-17 16:03] LABS: Lymphocytes % 65 % (10-50); Monocytes % 1 % (2-9); Neutrophils % 34 % (42-76); Platelet Estimate Marked Decrease; RBC Morphology Normal; Total Cells Counted 100
== END 2024-09-17 23:59 | disposition home or self-care (01) ==
LOC: LAB 14:38
PROVIDERS: PCP Family Medicine; Visit Provider Internal Medicine Medical Oncology
DX: C92.10 Chronic myeloid leukemia, BCR/ABL-positive, not having achieved remission (principal)
CPT/HCPCS: 36415; 85007; 85025

== ENCOUNTER 2024-10-15 12:32 | Outpatient (CLI) | payer MEDICAID, SELFPAY ==
--- OUTSIDE RECORDS SUMMARY | 2024-08-20 09:00 | XMS_ITS | Encounter Summary ---
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) (SO) Mk Pastrana MD [address] [facility] [address] [place] [phone] Phone: tel: fax: Referral ID Status Reason Start Date Expiration Date Visits Re quested Visits Authorized [id number] Closed 07/30/2024 01/29/2026 1 1 Encounter Details Date Type Department Care Team (Late st Contact Info) Description 08/20/2024 9:00 AM EDT Clinical Support [facility] Hematology/BMT and Cellular Therapy Program [address] [place] [phone] Social History Tobacco Use Types Packs/Day Years [...] Upcoming Encounters Date Type Department Care Team (Late st Contact Info) Description 10/30/2024 8:00 AM EDT Clinical Support [facility] Hematology/BMT and Cellular Therapy Program [address] [phone] 10/30/2024 8:30 AM EDT Office Visit [facility] Hematology/BMT and Cellular Therapy Program [address] [phone] Radah Morelos, BLIND HOOKER [address] [facility] [address] [place] [phone] 11/13/2024 1:00 PM EDT Office Visit [facility] [address] [place] [address] Verena Montes PA [address] [facility] [address] [place] [address] 11/27/2024 1:30 PM EDT Clinical Support [facility] Hematology/BMT and Cellular Therapy Program [address] [phone] 11/27/2024 2:00 PM EDT Office Visit [facility] Hematology/BMT and Cellular Therapy Program [address] [phone] Mk Pastrana MD [address] [facility] [address] [place] [phone] documented as of this encounter Visit Diagnoses Not on filedocumented in this encounter Care Teams Direct Chill Casting Operator Relationship Specialty Start Date End Date Willi Frost MD [address] [facility] [address] [place] [address] PCP - General 06/11/24 documented as of this encounter
--- OUTSIDE RECORDS SUMMARY | 2024-08-20 09:30 | XMS_ITS | Encounter Summary ---
Author Organization [facility] Address [address] [place] [address] Care Team Providers Care Professor Of Religious Studies Name Role Phone Willi Frost MD Primary Care Provider [phone] Reason for Referral * Imaging (Routine) - Closed Specialty Diagnoses / Procedures Referred By Contac t Referred To Contact Radiology Diagnoses CML (chronic myelocytic leukemia) (CMS/HCC) Hyperbilirubinemia Hepatosplenomegaly Procedures US Abdomen Focused Region Liver, Spleen Mk Pastrana MD 800 [facility] [address] [place] [address] Phone: tel: fax: Referral ID Status Reason Start Date Expiration Date Visits Re quested Visits Authorized [id number] Closed 08/20/2024 02/19/2026 1 1 * Genetic Testing (Routine) - Denied Specialty Diagnoses / Procedures Referred By Contac t Referred To Contact Lab Diagnoses CML (chronic myelocytic leukemia) (CMS/HCC) Procedures Myeloid Focused Panel, 50 gene Mk Pastrana MD 800 [facility] [address] [place] [address] Phone: tel: fax: Referral ID Status Reason Start Date Expiration Date Visits Re quested Visits Authorized [id number] Denied 08/20/2024 02/19/2026 1 0 * Genetic Testing (Routine) - Closed Specialty Diagnoses / Procedures Referred By Contac t Referred To Contact Lab Diagnoses CML (chronic myelocytic leukemia) ([facility]/HCC) Procedures Cytogenetics Testing, Oncology Mk Pastrana MD [address] [address] Phone: tel: fax: Referral ID Status Reason Start Date Expiration Date Visits Re quested Visits Authorized [id number] Closed 08/20/2024 02/19/2026 1 1 * Genetic Testing (Routine) - Authorized Specialty Diagnoses / Procedures Referred By Akosua t Referred To Contact Lab Diagnoses CML (chronic myelocytic leukemia) ([facility]/HCC) Procedures Leukemia/Lymphoma - Immunophenotyping by Flow Cytometry Mk Pastrana MD [address] [address] Phone: tel: fax: Referral ID Status Reason Start Date Expiration Date V isits Requested Visits Authorized [id number] Authorized 08/20/2024 02/19/2026 1 1 * Genetic Testing (Routine) - Authorized Specialty Diagnoses / Procedures [facility] To Contact Lab Diagnoses CML (chronic myelocytic leukemia) ([facility]/HCC) Procedures Bone marrow exam Mk Pastrana MD [address] [address] Phone: tel: fax: Referral ID Status Reason Start Date Expiration Date V isits Requested Visits Authorized [id number] Authorized 08/20/2024 02/19/2026 1 1 * Clinic-Administered Medication (Routine) - Pending Review Specialty Diagnoses / Procedures Referred By Contac t Referred To Contact Mk Pastrana MD [address] [address] Phone: tel: fax: Referral ID Status Reason Start Date Expiration Date V isits Requested Visits Authorized [id number] Pending Review 08/20/2024 02/19/2026 1 1 Reason for Visit * Reason Comments CML follow up * Genetic Testing (Routine) - Closed Specialty Diagnoses / Procedures Referred By Akosua linda Referred To Contact Lab Diagnoses CML (chronic myelocytic leukemia) (CMS/HCC) Procedures Quant Detection of BCR-ABL1 Major (p210) (SO) Mk Pastrana MD [address] [address] Phone: tel: fax: Referral ID Status Reason Start Date Expiration Date Visits Re quested Visits Authorized [id number] Closed 07/30/2024 01/29/2026 1 1 Encounter Details Date Type Department Care Team (Latest Contact Info) Description 08/20/2024 9:30 AM EDT Office Visit [facility] Hematology/BMT and Cellular Therapy Program [address] [place] [phone] Mk Pastrana MD [address] [address] Encounter for antineoplastic chemotherapy (Primary Dx); CML (chronic myelocytic leukemia) (CMS/HCC); Hyperbilirubinemia; CML (chronic myeloid leukemia) (CMS/HCC); Hepatosplenomegaly Social History Tobacco Use Types Packs/Day Years Used Date Smoking Tobacco: Every Day Cigarettes Smokeless Tobacco: Never Tobacco Cessation:Ready to Q uit: Not Asked; Counseling Given: Not Answered PHQ-2 Answer Date Recorded Patient Health Questionnaire-2 Score 0 04/30/2024 Comments Unknown Sex and Gender Information Value Date Recorded Sex Assigned at Female 06/07/2024 5:58 PM EST Legal Sex Female 12:57 PM EST Gender Identity Female 06/07/2024 5:58 PM EST Sexual Orientation Not on file documented as of this encounter Last Filed Vital Signs Vital Sign Reading Time Taken Comments Blood Pressure 137/89 08/20/2024 9:09 AM EDT Pulse 61 08/20/2024 9:09 AM EDT Temperature 36.5 C (97.7 F) 08/20/2024 9:09 AM EDT Respiratory Rate 16 08/20/2024 9:09 AM EDT Oxygen Saturation 100% 08/20/2024 9:09 AM EDT Inhaled Oxygen Concentration - - Weight 61.1 kg (134 lb 11.2 oz) 08/20/2024 9:09 AM EDT Height 165.1 cm (5' 5 ) 08/20/2024 9:09 AM EDT Body Mass Index 22.42 08/20/2024 9:09 AM EDT documented in this encounter Miscellaneous Notes * Progress Notes - Mk Pastrana MD - 08/20/2024 9:30 AM EDT Patient Information Patient Name: Amita Ortiz Date of : 1970 REFERRING PHYSICIAN: Mk Pastrana MD [address] [place] [phone] Encounter Date: 08/20/2024 Patient Care Team: Willi Frost MD as PCP - General Chief Complaint Patient presents with ??? CML follow up Hematologic History Cancer Staging No matching staging [...] count: 91 ?? 10?/L. CMP was unremarkable. 06/11/2023 - CT abdomen/pelvis showed marked splenomegaly at 24 cm and hepatomegaly without focal lesions 06/15/23 - [place] mg p.o. nightly. 10/2023 - Relocated to [facility] and established care with Fredrick Bateman in [place], [place], for hematology/oncology follow-up. By that point, the patient had been on nilotinib 300 mg p.o. twice daily for several weeks. CBC with differential was normal. BCR-ABL testing on peripheral bloodrevealed PCR positivity of 26.98% (b2a2 transcript), 17.66% (B3 A2 transcript, [id number]), and 0.0403% (ela2, D984-bdgxo transcript). The recommendation was to continue current therapy. 11/22/23 - Transferred care to [facility] hematology/oncology. The recommendation was to continue [...] BCR-ABL1 PCR was high-positive for p210 copy 08/20/2024- BCR-ABL1 PCR is pending Past Medical, Surgical, Family and Social History History reviewed. No pertinent past medical history. History reviewed. No pertinent surgical history. Mom - ovarian cancer (in 50s) Grandfather - brain (in 70s) Social History Tobacco Use ??? Smoking status: Every Day Current packs/day: 0.50 Types: Cigarettes ??? Smokeless tobacco: Never Vaping Use ??? Vaping status: Every Day ??? Substances: THC Allergies and Adverse Drug Reactions Patient has no known allergies. Medications Current Outpatient Medications: ??? Asciminib HCl 40 MG tablet, Take 40 mg by mouth daily., Disp: 60 tablet, Rfl: 2 Current Facility-Administered Medications: ??? filgrastim-sndz (ZARXIO) injection 300 mcg, 300 mcg, Subcutaneous, Once, Mk Pastrana MD Subjective Interval History: She is overall feeling well. She is taking ascminib as prescribed. Denies fever or infection, shortness of breath, n/v/d. She stopped smoking Review of Systems: 14- point ROS is reviewed and negative except in HPI. Objective Performance Status ECOG 1 KPS 90 Visit Vitals BP 137/89 Pulse 61 Temp 36.5 ??C (97.7 ??F) (Temporal) Resp 16 BSA: Estimated body surface area is 1.67 meters squared as calculated from the following: Height as of this encounter: 1.651 m (5' 5 ). Weight as of this encounter: 61.1 kg (134 lb 11.2 oz). EXAM General: No acute distress; sitting [...] personally Lab Results Component Value Date WBC 2.38 (L) 08/20/2024 RBC 4.06 08/20/2024 HGB 12.6 08/20/2024 HCT 36.5 08/20/2024 MCV 90 08/20/2024 MCHC 34.5 08/20/2024 RDW 16.9 (H) 08/20/2024 PLT 64 (L) 08/20/2024 MPV 10.3 08/20/2024 Lab Results Component Value Date BUN 7 08/20/2024 CL 104 08/20/2024 NA 141 08/20/2024 K 4.2 08/20/2024 TP 6.8 08/20/2024 AST 25 08/20/2024 ALT 20 08/20/2024 I visualized the recent imaging and discussed the current radiology findings with the patient in detail and released the report gave copies of the reports to the patient and answered all questions. No results found for this or any previous visit. No results found for this or any previous visit. Assessment and Plan: Assessment/Plan Accelerated-phase chronic myeloid leukemia: Ms. Amita Ortzi is a 54-year-old female with high-risk chronic [...] the evening by mid-August. After relocating to [place] in October 2023, she established care locally [...] continued to show high p210 transcript levels. Plan: - Will continue asciminib 40 mg/day. She is neutropenic and thrombocytopenic today. Give GCSF today. Monitor CBC closely. Plan to repeat BCR/ABL1 PCR today. Will plan to switch to ponatinib if BCR/ABL1 remains elevated, especially with cytopenias - Given persistent molecular and cytogenetic disease, the presence of high-risk features at diagnosis, additional somatic mutations, and suboptimal response and intolerance to multiple TKIs, Ms. Ortiz is being evaluated for of allogeneic hematopoietic stem cell transplantation. One 01/17 donor was identified and will be activated Allogenic transplant discussion: I discussed with the patient and her daughter the significance of her diagnoses, as well as the expectations associated with high-dose chemotherapy and allogenic stem cell transplantation. I spent nearly an hour reviewing the risks, benefits, alternatives, and expectations of allogenic stem cell transplantation. I explained that four conditions must be met for the patient to be eligible for allogenic stem cell transplantation: Her disease must be well controlled. She must be in sufficient health to tolerate the intensive treatment. She must have a strong support system. A suitable donor must be identified. We reviewed the anticipated side effects, including: prolonged hospitalization, potential need for blood transfusions (along with associated risks), increased risk of infection, increased risk of bleeding, fatigue, anorexia, probable weight loss, alopecia, mucositis, diarrhea and other gastrointestinal side effects, and peripheral edema. I also discussed the risk of qzcir-kkfuxl-dhxr disease (acute or chronic), which may require long-term immunosuppressive therapy and significantly increase therisk of infection. They understand that full recovery after transplantation may take approximately 6-12 months following hospital discharge. I emphasized the need for frequent outpatient clinic visits during the posttransplant period, during which time there will be heightened infection risk, and strict activity and dietary restrictions will be recommended. I answered all questions posed by the patient and her daughter. RTC 2 weeks Thrombocytopenia and neutropenia related to chemotherapy Monitor CBC weekly History of HCV. PCR is negative. Tobacco use. We counseled her on smoking cessation and has quit smoking. Hyperbilirubinemia. Was mildly elevated at 1.2 mg/dL. Could be related to nilotinib. Will monitor. Now normalized. ALT, AST, TB, ALP, albumin and total protein are all normal. Check US Hepatosplenomegaly. Likely related to her CML. Seen upon time of diagnosis. Check abdomen US I spent 45 minutes examining and counseling the patient, reviewing previous charts, reviewing results, and documenting. Mk Pastrana M.D. Coordinator Of Placement Division of Hematology/BMT [facility] * Progress Notes - Jojo Iyer, PharmD - 08/20/2024 9:30 AM EDT Pharmacy Hematology/Oncology Treatment Note Amita Ortiz is a 54 y.o. female with Cancer Staging No matching staging information was found for the patient. CML Study Patient: no Treatment Plan reviewed for Asciminib [x] Follow-Up Clinical Review for Continuous Oral [...] 150 mgQPM. She transferred her care to [place] in October 2023 and was found have an increased BCR-ABL, so Nilotinib increased back to 300 mg BID. Her transcripts remained elevated with each check afterwards. Given her persistent transcripts, she was seen today for Asciminib initiation and transfer of care. 07/24/24: Asciminib was held from 06/11/24 - 07/15/24 due to ANC < 1000. Dose was reduced 50% per package insert. 08/20/24: ANC < 1000. Will continue current dose and give a dose of g-csf. If BCR-Abl remains elevated will transition to ponatinib. Today's Wt: Wt Readings from Last 1 Encounters: 08/20/24 61.1 kg (134 lb 11.2 oz) Dosing Wt: n/a Dosing Ht: n/a DosingBSA: n/a Recent Labs: Lab Results Component Value Date WBC 2.38 (L) 08/20/2024 HGB 12.6 08/20/2024 HCT 36.5 08/20/2024 MCV 90 08/20/2024 PLT 64 (L) 08/20/2024 Lab Results Component Value Date GLUCOSE 90 08/20/2024 CALCIUM 9.5 08/20/2024 NA 141 08/20/2024 K 4.2 08/20/2024 CO2 27 08/20/2024 CL 104 08/20/2024 BUN 7 08/20/2024 CREATININE 0.70 08/20/2024 Lab Results Component Value Date ALT 20 08/20/2024 AST 25 08/20/2024 ALKPHOS 97 08/20/2024 BILITOT 0.5 08/20/2024 Lab Results Component Value Date NEUTROABS 0.86 (LL) 08/20/2024 Lab Results Component Value Date MG 2.2 08/20/2024 No results found for: TSH No results found for: URINEPRO Vitals: Visit Vitals BP 137/89 Pulse 61 Temp 36.5 ??C (97.7 ??F) (Temporal) Resp 16 Other Relevant Monitorin04/30/24 Hep C Ab (+) 04/30/24 Hep C PCR (pending) 04/30/24 Qtc: 450 ms BCR-ABL: 10/2023: 26.98% b2a2 transcript, 17.66% b3a2 transcript (O853-waowg) and 0.0403 P190 minor. 01/2024: b2a2 22.48%, [...] Plan: Patient will return to clinic in 2 weeks. Will follow-up at that time. Pharmacist Attestation: Jojo Iyer, PharmD 08/20/2024 11:24 AM documented in this encounter Plan of Treatment Upcoming Encounters Date Type Department Care Team (Late st Contact Info) Description 10/30/2024 8:00 AM EDT Clinical Support [facility] Hematology/BMT and Cellular Therapy Program 750 [facility], [address] [place] [address] [place] [address] 10/30/2024 8:30 AM EDT Office Visit [facility] Hematology/BMT and Cellular Therapy Program [address] [phone] Radha Morelos APRN 800 [facility] [address] [address] 11/13/2024 1:00 PM EDT Office Visit [facility] [address] [place] [address] Verena Montes PA [address] [facility] [address] [place] [address] 11/27/2024 1:30 PM EDT Clinical Support [facility] Hematology/BMT and Cellular Therapy Program [address] [place] [phone] 11/27/2024 2:00 PM EDT Office Visit [facility] H[facility]ology/BMT and Cellular Therapy Program [address] [phone] Mk Pastrana MD 800 [facility] [address] [address] documented as of this encounter Procedures Procedure Name Priority Date/Time Associated Diagnosis Comments QUANT DETECTION OF BCR-ABL1 MAJOR (P210) (SO) Routine 08/20/2024 9:00 AM EDT CML (chronic myelocytic leukemia) ([facility]/HCC) CBC WITH AUTO DIFFERENTIAL Routine 08/20/2024 9:00 AM EDT CML (chronic myelocytic leukemia) (CMS/HCC) PHOSPHORUS, PLASMA Routine 08/20/2024 9: 00 AM EDT CML (chronic myelocytic leukemia) (CMS/HCC) MAGNESIUM, PLASMA Routine 08/20/2024 9:0 0 AM EDT CML (chronic myelocytic leukemia) (CMS/HCC) LIPASE, PLASMA Routine 08/20/2024 9:00 AM EDT CML (chronic myelocytic leukemia) (CMS/HCC) LACTATE DEHYDROGENASE, PLASMA Routine 08/20/2024 9:00 AM EDT CML (chronic myelocytic leukemia) (CMS/HCC) AMYLASE, PLASMA Routine 08/20/2024 9:00 AM EDT CML (chronic myelocytic leukemia) (CMS/HCC) COMPREHENSIVE METABOLIC PANEL, PLASMA Routine 08/20/2024 9:00 AM EDT CML (chronic myelocytic leukemia) (CMS/HCC) documented in this encounter Results * Myeloid Focused Panel, 50 gene (10/03/2024 8:48 AM EDT) Interpretation The following three (3) genes with persistent variants have been detected in this bone marrow specimen. These gene variants were detected on 06/15/2023. Gene: DNMT3A Mutation: c.1208delA; p.[id number] Allele Frequency (%): 43% Gene: ASXL1 Mutation: c.1934dupG; p.[id number] Allele Frequency (%): 26% ID: [id number] Gene: BCOR Mutation: c.4936delC; p.[id number] 8 Allele Frequency (%): 11% Additional Details on Mutation Identified: Gene Transcript Genome Chrom Coordinate RefVar DNMT3A [id number] Hg19 2 [id number] Jose ASXL1 [id number] Hg19 20 [id number] dupG BCOR [id number] Hg19 X [id number] delC 10/14/2024 5:04 PM EDT [facility] Methodology The following 50 genes were tested on this panel and with the exception of the genes listed above; no clinically significant mutations were detected. Genes Analyzed: ABL1 ASXL1 ARIS BCOR BCORL1 BRAF CALR CBL CDKN2A CEBPA CSF3R CUX1 DNMT3A ETV6 EZH2 FBXW7 FLT3 GATA1 GATA2 IDH1 IDH2 IKZF1 JAK2 JAK3 KDM6A KIT KMT2A KRAS MPL NF1 NOTCH1 NPM1 NRAS PHF6 PTEN PTPN11 RAD21 RUNX1 SETBP1 SF3B1 SH2B3 SMC1A SMC3 SRSF2 STAG2 TET2 TP53 U2AF1 WT1 ZRSR2 DNA is isolated, fragmented, and adapter ligated to create sequencing libraries. Libraries are then hybridized with custom-designed RNA probes to enrich for regions associated with hematologic malignancies. Samples are then sequenced on the Illumina NextSeq 2000 ([employer], [place]). A custom bioinformatics pipeline aligns the data to human reference genome GRCh37 to determine variants. The limit of detection (related in part to depth of coverage, neoplastic cell percentage, and allelic frequency for the mutation) was determined to be 5% allele frequency, at which our assay has sensitivity of 98% and 91%, respectively, to detect single nucleotide variants (SNVs) and insertions/deletio ns (indels). Mutant allele populations below this detection limit will not be reliably detected by this method. Pseudogenes, highly homologous regions, and repeat regions may interfere with the detection of variants in this assay. This assay targets genes involved in hematologic malignancies. Some of the genes targeted may also cause inherited genetic disorders, variants in these genes will not be reported unless they are determined to contribute to the diagnosis, prognosis, or treatment of hematologic malignancies. 10/14/2024 5:04 PM EDT [facility] Disclaimer This test was developed and its performance characteristics determined by the Clinical Molecular and Genomic Pathology Laboratory at the [facility]. It has not been cleared or approved by the U.S. Food and Drug Administration. This test does not require FDA approval. This test is used for clinical purposes. It should not be regarded as investigational or for research. This laboratory is certified under the Clinical laboratory Improvement Amendments of 1988 (CLIA-88) as qualified to perform high complexity clinical laboratory testing. 10/14/2024 5:04 PM EDT [facility] Pathologist Signature Reviewed by: Og Duque 10/14/2024 5:04 PM EDT [facility] Bone Marrow Specimen from bone marrow obtained by aspiration / Unknown Non-blood Collection / Unknown 10/03/2024 8:48 AM EDT 10/03/2024 10:21 AM EDT Mk Pastrana MD LAB MOLECULAR DIAGNOSTICS ORD ERABLES Final Result [facility] [address] [place] [address], * Leukemia/Lymphoma - Immunophenotyping by Flow Cytometry (10/03/2024 8:48 AM EDT) Clinical Indication CML 10/03/2024 1:16 PM EDT [facility] Flow Cytometry Interpretation MIXED MARROW ELEMENTS WITHOUT EVIDENCE OF INCREASED BLASTS OR ABNORMAL LYMPHOID POPULATIONS, BONE MARROW ASPIRATE. 10/03/2024 1:16 PM EDT [facility] Comments Specimen viability is 88%. Flow cytometric analysis shows normally placed marrow elements by forward/side scatter analysis. Myeloid maturation appears appropriate and there is no increase in blasts/progenitors by scatter analysis. CD34 positive cells are 1% of all events. Analysis of the lymphocyte population shows 0.1 % of all cells express CD19 and CD10 with variable CD34 consistent with hematogones. T cells comprise 25% of all events and have a mature phenotype with a CD4/CD8 ratio of 1.8. B cells constitute 5% of all events and show polyclonal surface immunoglobulin and a kappa/lambda ratio of 1.23. The remaining cells are appropriately maturing myeloid and 3.7% monocytic cells. Trace plasma cells show polytypic expression of surface light chains. In summary, this bone marrow aspirate contains mixed marrow elements with no evidence of increased blasts or abnormal lymphoid populations. Final interpretation requires morphologic correlation ([id number]). The following antibodies were used in this analysis: CD45, CD2, CD3, CD4, CD5, CD7, CD8, CD10, CD13, CD14, CD15, CD16, CD19, CD20, CD33, CD34, CD38, CD56, CD117, HLA-DR, kappa surface light chains, lambda surface light chains 10/03/2024 1:16 PM EDT [facility] Disclaimer This test was developed and its performance characteristics determined by the Immuno-Molecular Pathology Laboratory at the [facility]. It has not been cleared or approved by the U.S. Food and Drug Administration. This test, which utilizes analyte specific reagents, does not require FDA approval. This test is used for clinical purposes. It should not be regarded as investigational or for research. This laboratory is certified under the Clinical Laboratory Improvement Amendments of 1988 (CLIA-88) as qualified to perform high complexity clinical laboratory testing. 10/03/2024 1:16 PM EDT [facility] Pathologist Signature Reviewed by: Kathi Soria MD 10/03/2024 1:16 PM EDT [facility] MRD Indicated Test Not Indicated 1:16 PM EDT [facility] Bone Marrow Specimen from bone marrow obtained by aspiration / Unknown Non-blood Collection / Unknown 10/03/2024 8:48 AM EDT 10/03/2024 10:18 AM EDT us Mk Pastrana MD LAB FLOW CYTOMETRY ORDERABLES Final Result [facility] [address] [place] [address] * Bone marrow exam (10/03/2024 8:48 AM EDT) Case Report Bone Marrow Case: [id number] Authorizing Provider: Mk Pastrana MD Collected: 10/03/2024 0848 Ordering Location: [facility] Hematology/BMT and Received: 10/03/2024 0954 Cellular Therapy Program Pathologist: Kathi Soria MD Specimens: A) - Bone Marrow Aspirate, left B) - Bone Marrow Biopsy, left C) - Peripheral Blood for Bone Marrow 3:18 PM EDT [facility] Final Diagnosis BONE MARROW, LEFT POSTERIOR ILIAC CREST, (PERIPHERAL SMEAR, ASPIRATE SMEARS, AND CORE BIOPSY): -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 - MILD RETICULIN FIBROSIS (PATCHY GRADE 1); NO INCREASE IN BLASTS, SEE COMMENT. 3:18 PM EDT [facility] at 1518 EDT Comment The patient has a history of chronic myeloid leukemia, and accompanying karyotype on prior specimen showed the presence of the [place] chromosome ([id number]). In the current specimen, erythroid precursors show megaloblastoid changes. Granulopoiesis is reduced and left-shifted. Megakaryocytes are increased in some of the aspirate spicules and exhibit small hypolobated forms. There is no evidence of increased blasts or increased fibrosis in the current specimen. Clinical correlation is recommended. 3:18 PM EDT [facility] Clinical Information CML ([place] positive) Now worsening neutropenia and thrombocytopenia 3:18 PM EDT [facility] CBC and Differential PERIPHERAL BLOOD: 10/03/2024: WBC Count 1.93 (Ref range: 3.70 - 10.30 10*3/uL); HGB 11.2 (Ref range: 11.2 - 15.7 g/dL); HCT 34.0 (Ref range: 34.0 - 45.0 %); Platelet Count 94 (Ref range: 155 - 369 10*3/uL); MCV 99 (Ref range: 79 - 98 fL) DIFFERENTIAL:2024: Neutrophils % 25; Lymphocytes % 66; Monocytes % 6; Basophils % 1; Eosinophils % 1; Immature Granulocytes % 1 Peripheral smear shows marked leukopenia with absolute neutropenia and slight left-shift. Red blood cell count is normal with macrocytes, ovalocytes, polychromasia and occasional dacrocytes. No circulating blasts are identified. Platelets are markedly reduced in number and show normal morphology. 3:18 PM EDT [facility] Bone [place] Differential BONE MARROW DIFFERENTIAL: 300 cells Normal Patient Neutrophils 15-50 9 Metamyelocytes 4-19 9 Myelocytes 1-18 13 Promyelocytes 1-8 10 Blasts 0-2 1 Monocytes 0-5 2 Erythroid 16-38 50 Lymphocytes 3-24 2 Eosinophils 0-6 2 Basophils 0-2 1 Plasma cells 0-4 1 Other 3:18 PM EDT [facility] Bone Marrow Aspirate and Biopsy Core biopsy shows a variably hypocellular bone marrow with 10-50% cellularity and reduced trilineage hematopoiesis. The cellularity is composed of predominantly erythroid lineage with reduced granulopoiesis. Megakaryocytes are adequate in number with focal loose clustering and occasional atypical forms. CD34 immunostain is negative for an expanded blast population Reticulin stain: Patchy mild increase in reticulin fibrosis (WHO grade 1, out of 3) Aspirate smears are spicular and cellular with trilineage hematopoiesis. Blasts are not increased. Megakaryocytes are increased in number with few hypolobated forms. Granulopoiesis is decreased and left-shifted with predominantly normal morphology. Erythroid precursors show megaloblastoid changes (nuclear to cytoplasmic dyssynchrony) and cytoplasmic vacuoles. The myeloid-erythroid ratio is reduced, 0.9 (normal 1.5-4.0). Iron stores are slightly increased on Prussian blue stained aspirate smear. No ring sideroblasts are observed. No metastatic tumor is identified. No lymphoma is identified. No granulomas are identified. Bone trabeculae are unremarkable. 5 3:18 PM EDT [facility] Special and Immunohistochemical Stains Immunohistochemica l stains were performed in addition to flow cytometry in specimen B block B1 to further characterize the blasts in the context of cell morphology and tissue architecture, since discrepancy between flow cytometric analysis and morphology can occur due to sampling bias, preferential loss of targeted cells, or hemodilution. Special Stain: A1-1 Fuller-Giemsa A1-2 Fuller-Giemsa A1-3 Fuller-Giemsa A1-4 Iron B1-2 Reticulin/Nuclear Fast Red C1-1 Fuller-Giemsa IHC: B1-3 CD34 All controls show appropriate reactivity. All immunohistochemist ry, in situ hybridization, and histochemical tests were developed by and are performed at the [facility], [address] [place] [address]. All tests reported here, except those addressing HER2 (breast) and PD-L1 expression as predictive markers, have not been cleared by or approved by the US Food and Drug Administration (FDA). The FDA has determined that such clearance or approval is not necessary. The laboratory is regulated under CLIA as qualified to perform high-complexity testing. The tests are used for clinical purposes. They should not be regarded as investigational or for research. This assay has not been validated on decalcified tissues. Results should be interpreted with caution given the likelihood of false negativity on decalcified specimens. 5 3:18 PM EDT [facility] Flow Cytometry Interpretation MIXED MARROW ELEMENTS WITHOUT EVIDENCE OF INCREASED BLASTS OR ABNORMAL LYMPHOID POPULATIONS, BONE MARROW ASPIRATE ([id number]). 5 3:18 PM EDT [facility] CYTOGENETICS/MOLECUL AR INTERPRETATION Correlation with cytogenetics/FISH/ molecular analysis is suggested. 5 3:18 PM EDT [facility] Gross Description B. LEFT A single specimen is received in formalin labeled bone marrow biopsy left posterior iliac crest and consists of 2 piece(s) of red/white tissue measuring 0.4/0.6 cm in length 0.2 cm in diameter. The specimen is submitted in to Histology for decalcification and routine processing. Cold Time: 1m 3:18 PM EDT [facility] Note: A resident was involved in the service. I attest I examined the relevant preparations for the specimens and confirmed the diagnosis or interpretation. 3:18 PM EDT [facility] Bone Marrow Peripheral blood specimen / Unknown Non-blood Collection / Unknown 10/03/2024 8:48 AM EDT 10/03/2024 9:54 AM EDT Bone marrow specimen (specimen) Specimen from bone marrow obtained by biopsy / Unknown 10/03/2024 8:48 AM EDT 10/03/2024 9:54 AM EDT Bone marrow specimen (specimen) Peripheral blood specimen / Unknown 10/03/2024 8:48 AM EDT 10/03/2024 9:55 AM EDT us Mk Pastrana MD LAB PATHOLOGY ORDERABLES Nani smith Result [facility] [address] [place] [address] * US Abdomen Focused Region Liver, Spleen (08/28/2024 9:00 AM EDT) Anatomical Region Laterality Modality Abdomen Ultrasound Impressions 08/28/2024 9:17 AM EDT Normal liver, no focal lesions. No splenomegaly. No ascites. Gallbladder polyps measuring up to 4 mm are consistent with extremely low risk category based on SRU Gallbladder Polyp Consensus Conference Guidelines 2021. Please see below for followup recommendations based on size and the manuscript reference. Management of Incidentally Detected Gallbladder Polyps: Society of Radiologists in Ultrasound Consensus Conference Recommendations Extremely low risk (< 9 mm) - No follow up recommended. Extremely low risk (10-14 mm) - Follow up US at 6, 12, 24 months. Extremely low risk ( e 15 mm) - Surgical consult. Low risk (< 6 mm) - No follow up recommended. Low risk (7-9 mm) - Follow up US at 12 months. Low risk (10-14 mm) - Follow up US at 6, 12, 24, 36 months vs surgical consult. Low risk ( e 15 mm) - Surgical consult. Indeterminate risk ( d 6 mm) - Follow up US at 6, 12, 24, 36 months vs surgical consult. Indeterminate risk ( e 7 mm) - Surgical consult. https://pubs.rsna.org/doi/abs/10.1148/radiol.033105. CRITICAL RESULT: No. COMMUNICATION: Per this written report. By electronically signing this report, I, the attending physician, attest that I have personally reviewed the images/data for the above examination(s) and agree with the final edited report. Drafted by Yovanny Guillaume MD on 08/28/2024 9:02 AM Final report signed by Mariza Koo MD on 08/28/2024 9:17 AM Narrative 08/28/2024 9:17 AM EDT CLINICAL INDICATION: Hepatitis and Splenomegaly TECHNIQUE: Multiplanar static and cine mendez scale ultrasound images of the abdomen were obtained, accompanied by selective color Doppler ultrasound images. COMPARISON: None. FINDINGS: Grayscale: Liver: The liver is normal in echogenicity and echotexture. No focal lesions are detected. No suspicious focal lesions are detected. Portal Vein: There is antegrade flow within the main portal vein. Gallbladder: Small echogenic foci are seen noted along the posterior wall the gallbladder representing polyps. No evidence of cholelithiasis. Polyp # 1 - Size - 4 mm Morphology: Pedunculated mefe-ik-dba-wall or thin stalk Focal adjacent wall thickening >4mm: not present Polyp # 2 - Size - 4 mm Morphology: Pedunculated ocfx-qi-yjv-wall or thin stalk Focal adjacent wall thickening >4mm: not present Common Duct: 4 mm Spleen: The spleen is normal in size measuring 10.5 cm. Free Fluid: There is no ascites Other: N/A Procedure Note Mariza Koo MD - 08/28/2024 CLINICAL INDICATION: Hepatitis and Splenomegaly TECHNIQUE: Multiplanar static and cine mendez scale ultrasound images of the abdomenwere obtained, accompanied by selective color Doppler ultrasound images. COMPARISON: None. FINDINGS: Grayscale: Liver: The liver is normal in echogenicity and echotexture. No focallesions are detected. No suspicious focal lesions are detected. Portal Vein: There is antegrade flow within the main portal vein. Gallbladder: Small echogenic foci are seen noted along the posterior wallthe gallbladder representing polyps. No evidence of cholelithiasis. Polyp # 1 - Size - 4 mm Morphology: Pedunculated gcci-rf-nbv-wall or thin stalk Focal adjacent wall thickening >4mm: not present Polyp # 2 - Size - 4 mm Morphology: Pedunculated rvih-cn-ion-wall or thin stalk Focal adjacent wall thickening >4mm: not present Common Duct: 4 mm Spleen: The spleen is normal in size measuring 10.5 cm. Free Fluid: There is no ascites Other: N/A IMPRESSION: Normal liver, no focal lesions. No splenomegaly. No ascites. Gallbladder polyps measuring up to 4 mm are consistent with extremely lowrisk category based on SRU Gallbladder Polyp Consensus ConferenceGuidelines 2021. Please see below for followup recommendations based onsize and the manuscript reference. Management of Incidentally Detected Gallbladder Polyps: Society ofRadiologists in Ultrasound Consensus Conference Recommendations Extremely low risk (< 9 mm) - No follow up recommended. Extremely low risk (10-14 mm) - Follow up US at 6, 12, 24 months. Extremely low risk ( e 15 mm) - Surgical consult. Low risk (< 6 mm) - No follow up recommended. Low risk (7-9 mm) - Follow up US at 12 months. Low risk (10-14 mm) - Follow up US at 6, 12, 24, 36 months vs surgicalconsult. Low risk ( e 15 mm) - Surgical consult. Indeterminate risk ( d 6 mm) - Follow up US at 6, 12, 24, 36 months vssurgical consult. Indeterminate risk ( e 7 mm) - Surgical consult. https://pubs.rsna.org/doi/abs/10.1148/radiol.389271. CRITICAL RESULT: No. COMMUNICATION: Per this written report. By electronically signing this report, I, the attending physician, irma I have personally reviewed the images/data for the aboveexamination(s) and agree with the final edited report. Drafted by Yovanny Guillaume MD on 08/28/2024 9:02 AM Final report signed by Mariza Koo MD on 08/28/2024 9:17 AM us Mk Pastrana MD IMG US PROCEDURES Final Resul t * (ABNORMAL) Quant Detection of BCR-ABL1 Major (p210) (SO) (08/20/2024 9:00 AM EDT) Quant BCR-ABL1, Major (p210), Source Whole Blood 08/26/2024 3:50 PM EDT [facility] ([facility]) Quant BCR-ABL1, Major (p210), Result Detected(A ) 08/26/2024 3:50 PM EDT [facility] ([facility]) Quant BCR-ABL1, Major (p210), IS Percent 31.5955 % 08/26/2024 3:50 PM EDT [facility] ([facility]) Quant BCR-ABL1, Major (p210), EER See Note 08/26/2024 3:50 PM EDT [facility] ([facility]) Blood Venous blood specimen / Unknown Venipuncture / Unknown 08/20/2024 9:00 AM EDT 08/20/2024 9:16 AM EDT Narrative [facility] ([facility]) - 08/26/2024 3:50 PM EDT This result has been reviewed and approved by Brian Reddy M.D., Ph.D. BCR::ABL1 fusion transcripts (p210 forms) were detected by RT-qPCR. INTERPRETIVE INFORMATION: Quantitative Detection of BCR::ABL1, Major [...] (IS; see Zhu MC, et al. Leukemia. 2009;23:1726-6384). METHODOLOGY: Total RNA was isolated and converted [...] (provided by Garo Stahl MD; see Richelle HE, et al. Blood. 2010;116:111-117) that was calibrated to a standard set of diagnostic specimens defined during the original trial of tyrosine kinase inhibitor therapy in CML patients (Ashlee CHÁVEZ, et al. NE. 2003;349:9911-7521). ANALYTICAL SENSITIVITY: Limit of quantification: 0.0032 percent [...] developed and its performance characteristics determined by [facility]. It has not been cleared or approved by the U.S. Food and Drug Administration. This test was performed in a CLIA-certified laboratory and is intended for clinical purposes. Authorized individuals can access the [employer] Enhanced Report with an [employer] Connect account using the following link. Your local lab can assist you in obtaining the patient report if you don't have a Connect account. [email or web address] Performed By: [facility] [address] [place] [address] Hardware Installer: Sunil Gomez MD, PhD CLIA Number: [id number] us Mk Pastrana MD LAB BLOOD ORDERABLES Final Re sult [facility] [address] [place] [address] * Lipase, Plasma (08/20/2024 9:00 AM EDT) Lipase, Plasma 28 19 - 63 U/L 08/20/2024 10:02 AM EDT [facility] Blood Venous blood specimen / Unknown Venipuncture / Unknown 08/20/2024 9:00 AM EDT 08/20/2024 9:17 AM EDT Mk Pastrana MD LAB BLOOD ORDERABLES Final Re sult Performing Organization Address City/[facility]/ZIP Co de Phone Number [facility] [address] [place] [address] * Phosphorus, Plasma (08/20/2024 9:00 AM EDT) Phosphorus, Plasma 3.4 2.5 - 4.5 mg/dL 08/20/2024 10:02 AM EDT [facility] Blood Venous blood specimen / Unknown Venipuncture / Unknown 08/20/2024 9:00 AM EDT 08/20/2024 9:17 AM EDT Mk Pastrana MD LAB BLOOD ORDERABLES Final Re sult Performing Organization Address [facility] Co de Phone Number [facility] [address] [place] [address] * Amylase, Plasma (08/20/2024 9:00 AM EDT) Amylase 49 27 - 114 U/L 08/20/2024 10:02 AM EDT [facility] Blood Venous blood specimen / Unknown Venipuncture / Unknown 08/20/2024 9:00 AM EDT 08/20/2024 9:17 AM EDT Mk Pastrana MD LAB BLOOD ORDERABLES Final Re sult Performing Organization Address City/[facility]/ZIP Co de Phone Number [facility] [address] [place] [address] * Magnesium, Plasma (08/20/2024 9:00 AM EDT) Magnesium, Plasma 2.2 1.9 - 2.4 mg/dL 08/20/2024 10:02 AM EDT [facility] Blood Venous blood specimen / Unknown Venipuncture / Unknown 08/20/2024 9:00 AM EDT 08/20/2024 9:17 AM EDT Mk Pastrana MD LAB BLOOD ORDERABLES Final Re sult Performing Organization Address [facility]/ZIP Co de Phone Number [facility] [address] [place] [address] * Lactate Dehydrogenase, Plasma (08/20/2024 9:00 AM EDT) Pathologist [facility], Plasma 228 116 - 250 U/L 08/20/2024 10:02 AM EDT [facility] Blood Venous blood specimen / Unknown Venipuncture / Unknown 08/20/2024 9:00 AM EDT 08/20/2024 9:17 AM EDT Mk Pastrana MD LAB BLOOD ORDERABLES Final Re sult Performing Organization Address [facility] de Phone Number [facility] [address] [place] [address] * (ABNORMAL) CBC and Differential (08/20/2024 9:00 AM EDT) WBC Count 2.38(L) 3.70 - 10.30 10*3/uL LAB HEMATOLOGY METHOD 08/20/2024 9:54 AM EDT [facility] RBC Count 4.06 3.90 - 5.20 10*6/uL LAB HEMATOLOGY METHOD 08/20/2024 9:54 AM EDT [facility] HGB 12.6 11.2 - 15.7 g/dL LAB HEMATOLOGY METHOD 08/20/2024 9:54 AM EDT [facility] HCT 36.5 34.0 - 45.0 % LAB HEMATOLOGY METHOD 08/20/2024 9:54 AM EDT [facility] Platelet Count 64(L) 155 - 369 10*3/uL LAB HEMATOLOGY METHOD 08/20/2024 9:54 AM EDT [facility] MCV 90 79 - 98 fL LAB HEMATOLOGY METHOD 08/20/2024 9:54 AM EDT [facility] MCH 31.0 26.0 - 32.0 pg LAB HEMATOLOGY METHOD 08/20/2024 9:54 AM EDT [facility] MCHC 34.5 30.7 - 35.5 g/dL LAB HEMATOLOGY METHOD 08/20/2024 9:54 AM EDT [facility] RDW 16.9(H) 11.5 - 14.5 % LAB HEMATOLOGY METHOD 08/20/2024 9:54 AM EDT [facility] MPV 10.3 8.8 - 12.5 fL LAB HEMATOLOGY METHOD 08/20/2024 9:54 AM EDT [facility] nRBC 0.0 <=0.0 per 100 WBCs LAB HEMATOLOGY METHOD 08/20/2024 9:54 AM EDT [facility] Differential Type Automated LAB HEMATOLOGY METHOD 08/20/2024 9:54 AM EDT [facility] Neutrophils % 36 % LAB HEMATOLOGY METHOD 08/20/2024 9:54 AM EDT [facility] Lymphocytes % 60 % LAB HEMATOLOGY METHOD 08/20/2024 9:54 AM EDT [facility] Monocytes % 2 % LAB HEMATOLOGY METHOD 08/20/2024 9:54 AM EDT [facility] Eosinophils % 2 % LAB HEMATOLOGY METHOD 08/20/2024 9:54 AM EDT [facility] Basophils % 0 % LAB HEMATOLOGY METHOD 08/20/2024 9:54 AM EDT [facility] Immature Granulocytes % 0 % LAB HEMATOLOGY METHOD 08/20/2024 9:54 AM EDT [facility] Neutrophils Absolute 0.86(LL) 1.60 - 6.10 10*3/uL LAB HEMATOLOGY METHOD 08/20/2024 9:54 AM EDT [facility] Lymphocytes Absolute 1.43 1.20 - 3.90 10*3/uL LAB HEMATOLOGY METHOD 08/20/2024 9:54 AM EDT [facility] Monocytes Absolute 0.05(L) 0.30 - 0.90 10*3/uL LAB HEMATOLOGY METHOD 08/20/2024 9:54 AM EDT [facility] Eosinophils Absolute 0.04 0.00 - 0.50 10*3/uL LAB HEMATOLOGY METHOD 08/20/2024 9:54 AM EDT [facility] Basophils Absolute 0.00 0.00 - 0.10 10*3/uL LAB HEMATOLOGY METHOD 08/20/2024 9:54 AM EDT [facility] Immature Granulocytes Absolute 0.00 0.00 - 0.06 10*3/uL LAB HEMATOLOGY METHOD 08/20/2024 9:54 AM EDT [facility] Blood Venous blood specimen / Unknown Venipuncture / Unknown 08/20/2024 9:00 AM EDT 08/20/2024 9:14 AM EDT [facility] - 08/20/2024 9:54 AM EDT Therapeutic decision making should be based on absolute values, rather than percentages. us Mk Pastrana MD LAB BLOOD ORDERABLES Final Re sult [facility] [address] [place] [id number] * Comprehensive Metabolic Panel, Plasma (08/20/2024 9:00 AM EDT) Glucose, Plasma 90 74 - 99 mg/dL 08/20/2024 10:02 AM EDT [facility] BUN, Plasma 7 7 - 21 mg/dL 08/20/2024 10:02 AM EDT [facility] Creatinine, Plasma 0.70 0.60 - 1.10 mg/dL 08/20/2024 10:02 AM EDT [facility] BUN/Creatinine Ratio 10 08/20/2024 10:02 AM EDT [facility] Sodium, Plasma 141 136 - 145 mmol/L 08/20/2024 10:02 AM EDT [facility] Potassium, Plasma 4.2 3.6 - 4.9 mmol/L 08/20/2024 10:02 AM EDT [facility] Chloride, Plasma 104 97 - 107 mmol/L 08/20/2024 10:02 AM EDT [facility] CO2, Plasma 27 22 - 29 mmol/L 08/20/2024 10:02 AM EDT [facility] Anion Gap 10 6 - 16 mmol/L 08/20/2024 10:02 AM EDT [facility] Total Calcium, Plasma 9.5 8.9 - 10.2 mg/dL 08/20/2024 10:02 AM EDT [facility] Total Protein 6.8 6.3 - 7.9 g/dL 08/20/2024 10:02 AM EDT [facility] Albumin, Plasma 4.5 3.5 - 5.2 g/dL 08/20/2024 10:02 AM EDT [facility] AST, Plasma 25 10 - 35 U/L 08/20/2024 10:02 AM EDT [facility] ALT, Plasma 20 10 - 35 U/L 08/20/2024 10:02 AM EDT [facility] Alkaline Phosphatase, Plasma 97 35 - 104 U/L 08/20/2024 10:02 AM EDT [facility] Total Bilirubin, Plasma 0.5 0.2 - 1.1 mg/dL 08/20/2024 10:02 AM EDT [facility] eGFRcr 104.2 mL/min/1.7 3m*2 08/20/2024 10:02 AM EDT [facility] Comment:Reported eGFRcr in m L/min/1.73m2 is based the CKD-EPI 2020 equation that does not use a race coefficient. Blood Venous blood specimen / Unknown Venipuncture / Unknown 08/20/2024 9:00 AM EDT 08/20/2024 9:17 AM EDT us Mk Pastrana MD LAB BLOOD ORDERABLES Final Re sult [facility] [address] [place] [address] documented in this encounter Visit Diagnoses Diagnosis Encounter for antineoplastic chemotherapy- Primary CML (chronic myelocytic leukemia) (CMS/HCC) Chronic myeloid leukemia, without mention of having achieved remission Hyperbilirubinemia Disorders of bilirubin excretion CML (chronic myeloid leukemia) (CMS/HCC) Chronic myeloid leukemia, without mention of having achieved remission Hepatosplenomegaly Other chronic nonalcoholic liver disease CML (chronic myelocytic leukemia) (CMS/HCC) Chronic myeloid leukemia, without mention of having achieved remission Hyperbilirubinemia Disorders of bilirubin excretion Hepatosplenomegaly Other chronic nonalcoholic liver disease documented in this encounter Administered Medications Inactive Administered Medications - up to 3 most recent administrations Medication Order MAR Action Action Date Dose Rate Site filgrastim-sndz (ZARXIO) injection 300 mcg 300 mcg, Subcutaneous, Once, 1 dose, On Mon08/20/24 at 1015, Routine Given 08/20/2024 10:28 AM EDT 300 mcg Right Upper Arm (Back) documented in this encounter Care Teams Professor Of Religious Studies Relationship Specialty Start Date End Date Willi Frost MD [address] [place] [address] PCP - General 06/11/24 documented as of this encounter
--- OUTSIDE RECORDS SUMMARY | 2024-08-28 08:29 | XMS_ITS | Encounter Summary ---
Author Organization [facility] Address [address] [place] [address] Care Team Providers Care Business Insurance Agent Name Role Phone Willi Frost MD Primary Care Provider [phone] Reason for Referral * Imaging (Routine) - Closed Specialty Diagnoses / Procedures Referred By Contac t Referred To Contact Radiology Diagnoses CML (chronic myelocytic leukemia) (CMS/HCC) Hyperbilirubinemia Hepatosplenomegaly Procedures US Abdomen Focused Region Liver, Spleen Mk Pastrana MD 800 [facility] Cancer [address] [address] Phone: tel: fax: Referral ID Status Reason Start Date Expiration Date Visits Re quested Visits Authorized [id number] Closed 08/20/2024 02/19/2026 1 1 Reason for Visit * Imaging (Routine) - Closed Specialty Diagnoses / Procedures Referred By Contadrián t Referred To Contact Radiology Diagnoses CML (chronic myelocytic leukemia) (CMS/HCC) Hyperbilirubinemia Hepatosplenomegaly Procedures US Abdomen Focused Region Liver, Spleen Mk Pastrana MD 800 [facility] Cancer [address] [address] Phone: tel: fax: Referral ID Status Reason Start Date Expiration Date Visits Re quested Visits Authorized [id number] Closed 08/20/2024 02/19/2026 1 1 Encounter Details Date Type Department Care Team (Latest Contact Info) Description 08/28/2024 8:29 AM EDT - 08/28/2024 11:59 PM EDT Hospital Encounter [facility] Ultrasound [address] [place] [phone] CML (chronic myelocytic leukemia) (CMS/HCC); Hyperbilirubinemia; Hepatosplenomegaly [...] CC Hematology/BMT and Cellular Therapy Program [address] [address] 10/30/2024 8:30 AM EDT Office Visit [facility]ology[facility]BMT and Cellular Therapy Program [address] [address] Radha Morelos, AGRICULTURE EXTENSION SPECIALIST 800 [facility] [address] [place] [phone] 11/13/2024 1:00 PM EDT Office Visit [facility] [address] [place] [address] Verena Montes PA 3101 [facility] [address] [place] [address] 11/27/2024 1:30 PM EDT Clinical Support [facility]ematology/BMT and Cellular Therapy Program [address] [place] [address] 11/27/2024 2:00 PM EDT Office Visit [facility] Cellular Therapy Program [address] [place] [address] Mk Pastrana MD 800 [facility] [address] [place] [phone] documented as of this encounter Procedures Procedure [...] ( e 7 mm) - Surgical consult. https://pubs.rsna.org/doi/abs/10.1148/radiol.699768. CRITICAL RESULT: No. COMMUNICATION: Per this written [...] - Size - 4 mm Morphology: Pedunculated ktwz-xa-hek-wall or thin stalk Focal adjacent wall thickening >4mm: not present Polyp # 2 - Size - 4 mm Morphology: Pedunculated eren-zu-htc-wall or thin stalk Focal adjacent wall thickening [...] - Size - 4 mm Morphology: Pedunculated vtgh-jy-rcc-wall or thin stalk Focal adjacent wall thickening >4mm: not present Polyp # 2 - Size - 4 mm Morphology: Pedunculated rynr-dl-jso-wall or thin stalk Focal adjacent wall thickening [...] ( e 7 mm) - Surgical consult. https://pubs.rsna.org/doi/abs/10.1148/radiol.153945. CRITICAL RESULT: No. COMMUNICATION: Per this written report. By electronically signing this report, I, the attending physician, irma I have personally reviewed the images/data for the aboveexamination(s) and agree with the final edited report. Drafted by Yovanny Guillaume MD on 08/28/2024 9:02 AM Final report signed by Mariza Koo MD on 08/28/2024 9:17 AM us kM Pastrana MD IMG US PROCEDURES Final Resul [...] documented as of this encounter Care Teams Business Insurance Agent Relationship Specialty Start Date End Date Willi Frost MD [address] [place] [address] PCP - General 06/11/24 documented as of this encounter
--- OUTSIDE RECORDS SUMMARY | 2024-08-28 14:00 | XMS_ITS | Encounter Summary ---
Author Organization [facility] Address [address] [place] [address] Care Team Providers Care Decorator Hand Name Role Phone Willi Frost MD Primary Care Provider + [phone] Reason for Visit * Consultation (Routine) - Closed Specialty Diagnoses / Procedures Referred By Contac t Referred To Contact Dentistry Diagnoses CML (chronic myelocytic leukemia) (CMS/HCC) Mk Pastrana MD [address] [facility] Cancer [address] [address] Phone: tel: fax: [facility] Adult Dentistry [address] [address] Phone: tel: fax: Referral ID Status Reason Start Date Expiration Date V isits Requested Visits Authorized [id number] Closed Specialty Services Required 07/09/2024 01/08/2026 1 1 Encounter Details Date Type Department Care Team (Late st Contact Info) Description 08/28/2024 2:00 PM EDT Office Visit [facility] Adult Dentistry [address] [place] [address] Michelle Garza [address] [phone] CML (chronic myelocytic leukemia) (CMS/HCC) Social History [...] - 08/28/2024 2:00 PM EDT Adult Dentistry [facility] Subjective: 54 y.o. female presents [...] Upcoming Encounters Date Type Department Care Team ([facility] st Contact Info) Description 10/30/2024 8:00 AM EDT Clinical Support [facility] Hematology/BMT and Cellular Therapy Program [address] [phone] 10/30/2024 8:30 AM EDT Office Visit [facility] Hematology/BMT and Cellular Therapy Program [address] [phone] Radha Morelos, ELECTROPLATING SALES REPRESENTATIVE [address] [facility] [address] [place] [phone] 11/13/2024 1:00 PM EDT Office Visit [facility] [address] [place] [address] Verena Montes PA 3101 [facility] [address] [place] [address] 11/27/2024 1:30 PM EDT Clinical Support [facility] Hematology/BMT and Cellular Therapy Program [address] [place] [address] 11/27/2024 2:00 PM EDT Office Visit [facility] Hematology/BMT and Cellular Therapy Program [address] [place] [phone] Mk Pastrana MD [address] [facility] [address] [place] [phone] documented as of this encounter Procedures Procedure [...] documented as of this encounter Care Teams Decorator Hand Relationship Specialty Start Date End Date Willi Frost MD [address] [place] [address] [address] [place] [address] PCP - General 06/11/24 documented as of this encounter
--- OUTSIDE RECORDS SUMMARY | 2024-09-10 11:00 | XMS_ITS | Encounter Summary ---
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) (SO) Elena Ledezma, PE MANAGER 800 [facility] [address] [place] [phone] Phone: tel: fax: Referral ID Status Reason Start Date Expiration Date Visits Re quested Visits Authorized [id number] Closed 09/06/2024 03/08/2026 1 1 Encounter Details Date Type Department Care Team ([facility] st Contact Info) Description 09/10/2024 11:00 AM EDT Clinical Support [facility] Hematology/BMT and Cellular Therapy Program 750 [facility], [address] [place] [address] [place] [address] Tony Foreman, RN Social History Tobacco Use [...] ([facility] st Contact Info) Description 10/30/2024 8:00 AM EDT Clinical Support [facility] Hematology/BMT and Cellular Therapy Program [address] [phone] 10/30/2024 8:30 AM EDT Office Visit [facility] Hematology/BMT and Cellular Therapy Program [address] [phone] Radha Morelos, PE MANAGER 800 [facility] [address] [place] [phone] 11/13/2024 1:00 PM EDT Office Visit [facility] [address] [place] [address] Verena Montes PA [address] [phone] 11/27/2024 1:30 PM EDT Clinical Support [facility] Hematology/BMT and Cellular Therapy Program [address] [phone] 11/27/2024 2:00 PM EDT Office Visit [facility] Hematology/BMT and Cellular Therapy Program [address] [phone] Mk Pastrana MD 800 [facility] [address] [place] [phone] documented as of this encounter Visit Diagnoses Not on filedocumented in this encounter Additional Health Concerns Assessment Noted Time A Body Mass Index follow-up plan has been documented for the patient 08/28/2024 5:28 PM EDT documented as of this encounter Care Teams Line Servicer Relationship Specialty Start Date End Date Willi Frost MD [address] [place] [address] PCP - General 06/11/24 documented as of this encounter
--- OUTSIDE RECORDS SUMMARY | 2024-09-10 11:30 | XMS_ITS | Encounter Summary ---
Author Organization [facility] Address [address] [place] [address] Care Team Providers Care Cleaner And Preparer Name Role Phone Willi Frost MD Primary Care Provider + [phone] Reason for Referral * Genetic Testing (Routine) - Closed Specialty Diagnoses / Procedures Referred By Ryanac alexei Referred To Contact Lab Diagnoses CML (chronic myelocytic leukemia) (CMS/HCC) Procedures Quant Detection of BCR-ABL1 Major (p210) (SO) Elena Ledezma APRN [address] [address] Phone: tel: fax: Referral ID Status Reason Start Date Expiration Date Visits Re quested Visits Authorized [id number] Closed 09/06/2024 03/08/2026 1 1 Reason for Visit * Genetic Testing (Routine) - Closed Specialty Diagnoses / Procedures Referred By Contac t Referred To Contact Lab Diagnoses CML (chronic myelocytic leukemia) ([facility]/HCC) Procedures Quant Detection of BCR-ABL1 Major (p210) (SO) Elena Ledezma APRN [address] [address] Phone: tel: fax: Referral ID Status Reason Start Date Expiration Date Visits Re quested Visits Authorized [id number] Closed 09/06/2024 03/08/2026 1 1 Encounter Details Date Type Department Care Team (Late st Contact Info) Description 09/10/2024 11:30 AM EDT Office Visit [facility] Hematology/BMT and Cellular Therapy Program 750 [facility] [place] [phone] Bhavana Bella APRN 800 [facility] [address] [place] [phone] CML (chronic myelocytic leukemia) (CMS/HCC) (Primary [...] 1970 REFERRING PHYSICIAN: Elena Ledezma, MARCY 800 [facility] [address] [place] [phone] Encounter Date: 09/10/2024 Patient Care Team: Willi [...] - Peripheral blood flow cytometry performed in [place] for leukocytosis revealed 3% myeloblasts with maturing [...] lesions 06/15/23 - Bone marrow biopsy in [place] was consistent with chronic myeloid leukemia with [...] p.o. nightly. 10/2023 - Relocated to [facility] and established care with Fredrick Bateman in [place], [place], for hematology/oncology follow-up. By that point, the patient had been on nilotinib 300 mg p.o. twice daily for several weeks. CBC with differential was normal. BCR-ABL testing on peripheral bloodrevealed PCR positivity of 26.98% (b2a2 transcript), 17.66% (B3 A2 transcript, P123-czajy), and 0.0403% (ela2, N810-xhobz transcript). The recommendation was to continue current therapy. 11/22/23 - Transferred care to [facility] hematology/oncology. The recommendation was to continue [...] accelerated chronic myeloidleukemia (CML), initially diagnosed in [place] on June 15, 2023, following evaluation for [...] the evening by mid-August. After relocating to [place] in October 2023, she established care locally [...] edema. I also discussed the risk of fxhuc-mynbgv-iwme disease (acute or chronic), which may require [...] Bella APRN HEMATOLOGY/BMT AND CELLULAR THERAPY PROGRAM [address] [facility] [phone] SERVICE PAGER [phone]/MiName CHAT 30 minutes was spent on this [...] 150 mgQPM. She transferred her care to [place] in October 2023 and was found have [...] ABL1 International Scale (Percent) 45.9300 See Note 31.5520 Treatment/Therapy Plan: Asciminib 40 mg PO QD [...] Hematology/BMT and Cellular Therapy Program [address] [phone] 10/30/2024 8:30 AM EDT Office Visit [facility] Hematology/BMT and Cellular Therapy Program [address] [phone] Radha Morelos, SENIOR UI UX DEVELOPER 800 [facility] [address] [place] [phone] 11/13/2024 1:00 PM EDT Office Visit [employer] [employer] [address] [place] [address] [place] [address] [place] [phone] 11/27/2024 1:30 PM EDT Clinical Support [facility] Hematology/BMT and Cellular Therapy Program [address] [phone] 11/27/2024 2:00 PM EDT Office Visit [facility] Hematology/BMT and Cellular Therapy Program [address] [phone] Mk Pastrana MD 800 [facility] [address] [place] [phone] documented as of this encounter Procedures Procedure [...] Source Whole Blood 09/17/2024 9:43 AM EDT [facility] ([facility]) Quant BCR-ABL1, Major (p210), Result Detected(A ) 09/17/2024 9:43 AM EDT [facility] ([facility]) Quant BCR-ABL1, Major (p210), IS Percent 20.4857 % 09/17/2024 9:43 AM EDT [facility] ([facility]) Quant BCR-ABL1, Major (p210), EER See Note 09/17/2024 9:43 AM EDT [facility] ([facility]) Blood Venous blood specimen / Unknown Venipuncture / Unknown 09/10/2024 11:12 AM EDT 09/10/2024 11:39 AM EDT Narrative [facility] ([facility]) - 09/17/2024 9:43 AM EDT This result [...] (IS; see Zhu MC, et al. Leukemia. 2009;23:1589-2378). METHODOLOGY: Total RNA was isolated and converted [...] using a validated reference sample (provided by [facility]; see Richelle TROTTER et al. Blood. 2010;116:111-117) that was calibrated to a standard set of diagnostic specimens defined during the original trial of tyrosine kinase inhibitor therapy in CML patients (Ashlee CHÁVEZ, et al. NE. 2003;349:4319-1847). ANALYTICAL SENSITIVITY: Limit of quantification: 0.0032 percent [...] developed and its performance characteristics determined by [facility]. It has not been cleared or approved by the U.S. Food and Drug Administration. This test was performed in a CLIA-certified laboratory and is intended for clinical purposes. Authorized individuals can access the [facility] Enhanced Report with an [facility] Connect account using the following link. Your local lab can assist you in obtaining the patient report if you don't have a Connect account. [email or web address] Performed By: [facility] [address] [place] [id number] Stable Hand: Sunil Gomez MD, PhD CLIA Number: [id number] us Elena Ledezma SENIOR UI UX DEVELOPER LAB BLOOD ORDERABLES Final Res ult Performing Organization Address [facility] Co de Phone Number [facility] [address] [place] [address] * Lipase (09/10/2024 11:12 AM EDT) Lipase, Plasma 28 19 - 63 U/L 09/10/2024 12:10 PM EDT [facility] Blood Venous blood specimen / Unknown Venipuncture / Unknown 09/10/2024 11:12 AM EDT 09/10/2024 11:35 AM EDT us Elena Ledezma SENIOR UI UX DEVELOPER LAB BLOOD ORDERABLES Final Res ult Performing Organization Address [facility]/ZIP Co de Phone Number [facility] [address] [place] [address] * Amylase (09/10/2024 11:12 AM EDT) Amylase 40 27 - 114 U/L 09/10/2024 12:10 PM EDT [facility] Blood Venous blood specimen / Unknown Venipuncture / Unknown 09/10/2024 11:12 AM EDT 09/10/2024 11:35 AM EDT us Elena Bass Meisuki SENIOR UI UX DEVELOPER LAB BLOOD ORDERABLES Final Res ult Performing Organization Address City/[facility]/ZIP Co de Phone Number [facility] [address] [place] [address] * Phosphorus, Plasma (09/10/2024 11:12 AM EDT) Phosphorus, Plasma 3.8 2.5 - 4.5 mg/dL 09/10/2024 12:[address] [facility] Blood Venous blood specimen / Unknown Venipuncture / Unknown 09/10/2024 11:12 AM EDT 09/10/2024 11:35 AM EDT us Elena L Yanetsuki SENIOR UI UX DEVELOPER LAB BLOOD ORDERABLES Final Res ult [facility] [address] [place] [address] * Magnesium, Plasma (09/10/2024 11:12 AM EDT) Magnesium, Plasma 2.1 1.9 - 2.4 mg/dL 09/10/2024 12:10 PM EDT [facility] Blood Venous blood specimen / Unknown Venipuncture / Unknown 09/10/2024 11:12 AM EDT 09/10/2024 11:35 AM EDT us Elena Ledezma SENIOR UI UX DEVELOPER LAB BLOOD ORDERABLES Final Res ult Performing Organization Address City/[facility]/[place] [address] * Lactate Dehydrogenase, Plasma (09/10/2024 11:12 AM EDT) LDH, Plasma 188 116 - 250 U/L 09/10/2024 12:10 PM EDT [facility] Comment:Hemolyzed, result ma y be falsely increased. Blood Venous blood specimen / Unknown Venipuncture / Unknown 09/10/2024 11:12 AM EDT 09/10/2024 11:35 AM EDT us Elena L Meikel SENIOR UI UX DEVELOPER LAB BLOOD ORDERABLES Final Res ult [facility] [address] [place] [address] * (ABNORMAL) Comprehensive Metabolic Panel, Plasma (09/10/2024 11:12 AM EDT) Glucose, Plasma 67(L) 74 - 99 mg/dL 09/10/2024 12:10 PM EDT [facility] BUN, Plasma 11 7 - 21 mg/dL 09/10/2024 12:10 PM EDT [facility] Creatinine, Plasma 0.60 0.60 - 1.10 mg/dL 09/10/2024 12:10 PM EDT [facility] BUN/Creatinine Ratio 18 09/10/2024 12:10 PM EDT [facility] Sodium, Plasma 140 136 - 145 mmol/L 09/10/2024 12:10 PM EDT [facility] Potassium, Plasma 4.5 3.6 - 4.9 mmol/L 09/10/2024 12:10 PM EDT [facility] Chloride, Plasma 106 97 - 107 mmol/L 09/10/2024 12:10 PM EDT [facility] CO2, Plasma 22 22 - 29 mmol/L 09/10/2024 12:10 PM EDT [facility] Anion Gap 12 6 - 16 mmol/L 09/10/2024 12:10 PM EDT [facility] Total Calcium, Plasma 9.1 8.9 - 10.2 mg/dL 09/10/2024 12:10 PM EDT [facility] Total Protein 6.6 6.3 - 7.9 g/dL 09/10/2024 12:10 PM EDT [facility] Albumin, Plasma 4.1 3.5 - 5.2 g/dL 09/10/2024 12:10 PM EDT [facility] AST, Plasma 16 10 - 35 U/L 09/10/2024 12:10 PM EDT [facility] Comment:Hemolyzed, result ma y be falsely increased. ALT, Plasma 11 10 - 35 U/L 09/10/2024 12:10 PM EDT [facility] Alkaline Phosphatase, Plasma 89 35 - 104 U/L 09/10/2024 12:10 PM EDT [facility] Total Bilirubin, Plasma 0.5 0.2 - 1.1 mg/dL 09/10/2024 12:10 PM EDT [facility] eGFRcr 108.2 mL/min/1.7 3m*2 09/10/2024 12:10 PM EDT [facility] Comment:Reported eGFRcr in m L/min/1.73m2 is based the CKD-EPI 2020 equation that does not use a race coefficient. Blood Venous blood specimen / Unknown Venipuncture / Unknown 09/10/2024 11:12 AM EDT 09/10/2024 11:35 AM EDT us Elena Ledezma SENIOR UI UX DEVELOPER LAB BLOOD ORDERABLES Final Res ult [facility] [address] [place] [address] * (ABNORMAL) CBC and Differential (09/10/2024 11:12 AM EDT) WBC Count 1.88(L) 3.70 - 10.30 10*3/uL LAB HEMATOLOGY METHOD 09/10/2024 11:[address] [facility] RBC Count 3.51(L) 3.90 - 5.20 10*6/uL LAB HEMATOLOGY METHOD 09/10/2024 11:[address] [facility] HGB 11.2 11.2 - 15.7 g/dL LAB HEMATOLOGY METHOD 09/10/2024 11:[address] [facility] HCT 33.1(L) 34.0 - 45.0 % LAB HEMATOLOGY METHOD 09/10/2024 11:[address] [facility] Platelet Count 37(L) 155 - 369 10*3/uL LAB HEMATOLOGY METHOD 09/10/2024 11:[address] [facility] MCV 94 79 - 98 fL LAB HEMATOLOGY METHOD 09/10/2024 11:[address] [facility] MCH 31.9 26.0 - 32.0 pg LAB HEMATOLOGY METHOD 09/10/2024 11:[address] [facility] MCHC 33.8 30.7 - 35.5 g/dL LAB HEMATOLOGY METHOD 09/10/2024 11:[address] [facility] RDW 17.2(H) 11.5 - 14.5 % LAB HEMATOLOGY METHOD 09/10/2024 11:[address] [facility] MPV 9.9 8.8 - 12.5 fL LAB HEMATOLOGY METHOD 09/10/2024 11:[address] [facility] nRBC 0.0 <=0.0 per 100 WBCs LAB HEMATOLOGY METHOD 09/10/2024 11:[address] [facility] Differential Type Automated LAB HEMATOLOGY METHOD 09/10/2024 11:[address] [facility] Neutrophils % 19 % LAB HEMATOLOGY METHOD 09/10/2024 11:[address] [facility] Lymphocytes % 75 % LAB HEMATOLOGY METHOD 09/10/2024 11:[address] [facility] Monocytes % 3 % LAB HEMATOLOGY METHOD 09/10/2024 11:[address] [facility] Eosinophils % 1 % LAB HEMATOLOGY METHOD 09/10/2024 11:[address] [facility] Basophils % 1 % LAB HEMATOLOGY METHOD 09/10/2024 11:[address] [facility] Immature Granulocytes % 1 % LAB HEMATOLOGY METHOD 09/10/2024 11:[address] [facility] Neutrophils Absolute 0.35(LL) 1.60 - 6.10 10*3/uL LAB HEMATOLOGY METHOD 09/10/2024 11:[address] [facility] Lymphocytes Absolute 1.44 1.20 - 3.90 10*3/uL LAB HEMATOLOGY METHOD 09/10/2024 11:[address] [facility] Monocytes Absolute 0.06(L) 0.30 - 0.90 10*3/uL LAB HEMATOLOGY METHOD 09/10/2024 11:[address] [facility] Eosinophils Absolute 0.01 0.00 - 0.50 10*3/uL LAB HEMATOLOGY METHOD 09/10/2024 11:[address] [facility] Basophils Absolute 0.01 0.00 - 0.10 10*3/uL LAB HEMATOLOGY METHOD 09/10/2024 11:[address] [facility] Immature Granulocytes Absolute 0.01 0.00 - 0.06 10*3/uL LAB HEMATOLOGY METHOD 09/10/2024 11:[address] [facility] Blood Venous blood specimen / Unknown Venipuncture / Unknown 09/10/2024 11:12 AM EDT 09/10/2024 11:28 AM EDT Narrative [facility] - 09/10/2024 11:34 AM EDT Therapeutic decision making should be based on absolute values, rather than percentages. us Elena Ledezma APRN LAB BLOOD ORDERABLES Final Res [facility] [address] [place] [address] documented in this encounter Visit Diagnoses Diagnosis CML (chronic myelocytic leukemia) (CMS/HCC)- Primary Chronic myeloid leukemia, without mention of having achieved remission documented in this encounter Additional Health Concerns Assessment Noted Time A Body Mass Index follow-up plan has been documented for the patient 08/28/2024 5:28 PM EDT documented as of this encounter Care Teams Cleaner And Preparer Relationship Specialty Start Date End Date Willi Frost MD [address] [place] [phone] PCP - General 06/11/24 documented as of this encounter
--- OUTSIDE RECORDS SUMMARY | 2024-09-10 13:34 | XMS_ITS | Encounter Summary ---
Author Organization [facility] Address [address] [place] [address] Care Team Providers Care Scarifier Operator Name Role Phone Willi Frost MD Primary Care Provider [phone] Reason for Referral * Clinic-Administered Medication (Routine) - Pending Review Specialty Diagnoses / Procedures Referred By Akosua linda Referred To Contact Bhavana Bella APRN [address] [address] Phone: tel: fax: Referral ID Status Reason Start Date Expiration Date V isits Requested Visits Authorized [id number] Pending Review 09/10/2024 03/12/2026 1 1 Reason for Visit * Clinic-Administered Medication (Routine) - Pending Review Specialty Diagnoses / Procedures Referred By Akosua linda Referred To Contact Bhavana Bella APRN [address] [phone] Phone: tel: fax: Referral ID Status Reason Start Date Expiration Date V isits Requested Visits Authorized [id number] Pending Review 09/10/2024 03/12/2026 1 1 Encounter Details Date Type Department Care Team (Latest Contact Info) Description 09/10/2024 1:34 PM EDT - 09/10/2024 11:59 PM EDT Hospital Encounter [facility] 2 [address] [place] [address] CML (chronic myelocytic leukemia) (CMS/HCC) (Primary Dx) [...] Upcoming Encounters Date Type Department Care Team ([facility] st Contact Info) Description 10/30/2024 8:00 AM EDT Clinical Support [facility] CC Hematology/BMT and Cellular Therapy Program 750 [facility] [address] [place] [phone] 10/30/2024 8:30 AM EDT Office Visit [facility] Hematology/BMT and Cellular Therapy Program 750 [facility] [place] [phone] Radha Morelos APRN 800 [facility] [address] [place] [phone] 11/13/2024 1:00 PM EDT Office Visit [facility] [address] [place] [address] Verena Montes PA [address] [facility] [address] [place] [address] 11/27/2024 1:30 PM EDT Clinical Support [facility] CC Hematology/BMT and Cellular Therapy Program [address] [place] [phone] 11/27/2024 2:00 PM EDT Office Visit [facility] Hematology/BMT and Cellular Therapy Program [address] [place] [phone] Mk Pastrana MD 800 [facility] [address] [place] [phone] documented as of this encounter Procedures Procedure [...] LAB HEMATOLOGY METHOD 09/10/2024 3:45 PM EDT [facility] Blood Venous blood specimen / Unknown Venipuncture / Unknown 09/10/2024 3:41 PM EDT 09/10/2024 3:43 PM EDT us Bhavana Bella APRN LAB BLOOD ORDERABLES Final Result Performing Organization Address City/[facility] Co de Phone Number [facility] [address] [place] [address] * Prepare Leukocyte Reduced Platelets: 1 Units, Irradiated, Leukoreduced (09/10/2024 2:06 PM EDT) Product Code G5540H53 CH BLOO D BANK Dispense Status Transfused BLOOD BANK Blood Expiration Date [id number] BLOOD BANK Unit Number [id number] CH B LOOD BANK Product Blood Type 6200 BLOOD BANK Blood Type A+ BLOOD BANK Blood Venous blood specimen / Unknown Bhavana Bella APRN BLOOD BANK PRODUCT ORDERAB LES Final Result Performing Organization Address [facility] Co de Phone Number BLOOD BANK [address] [place] [address] documented in this encounter Visit Diagnoses Diagnosis [...] documented as of this encounter Care Teams Scarifier Operator Relationship Specialty Start Date End Date Willi Frost MD [address] [place] [address] PCP - General 06/11/24 documented as of this encounter
--- OUTSIDE RECORDS SUMMARY | 2024-09-11 15:00 | XMS_ITS | Encounter Summary ---
Author Organization Healthcare Address [address] [place] [address] Care Team Providers Care Letterer Name Role Phone Willi Frost MD Primary Care Provider Encounter Details Date Type Department Care Team (Late st Contact Info) Description 09/11/2024 3:00 PM EDT Office Visit [facility] [address] [place] [phone] Michelle Garza [address] [place] [phone] Cancer (CMS/HCC) (Primary Dx); Extraction of tooth needed Social History Tobacco Use Types Packs/Day Years [...] Sign Reading Time Taken Comments Blood Pressure 148/92 09/11/2024 3:36 PM EDT Pulse 76 09/11/2024 3:36 PM EDT Temperature - - Respiratory Rate - - Oxygen Saturation - - Inhaled Oxygen Concentration - - Weight - - Height - - Body Mass Index - - documented in this encounter Miscellaneous Notes * Progress Notes - Michelle Garza - 09/11/2024 3:00 PM EDT Adult Dentistry [facility] Subjective: 54 y.o. female presents to clinic for ext #22-28. She had blood transfusion yesterday. CBC was repeated before the procedure, platelet count is 57 today. Objective: Medical and dental hx reviewed. No changes Vitals: Visit Vitals BP (!) 148/92 Pulse 76 PMH: Chronic Myeloid Leukemia- BCR?ABL positive Sacroiliitis Hypermetropia Neoplasm related pain Splenomegaly PSH: No significant PSH Medications: Asciminib 40 mg- chemotherapy daily. Patient is on oral chemotherapy since June 2023 Allergies: NKDA Assessment: ASA Class: ASA 4 - Patient with severe systemic disease that is a constant threat to life EOE: WNL IOE: GABINO: WNL HTE: Only teeth present # 23,24,25,26,27, RR#22,28. Plan: Today: #22, #23, #24, #25, #26, #27, and #28 extraction Future visits: Complete denture evaluation in 3 months Tx-Rendered today: Patient had her antibiotic prophylaxis before the procedure Procedure, risks, benefits, alternatives and complication discussed with patient. Consent was obtained for ext #22, #23, #24, #25, #26, #27, and #28. Pt was given Septocaine 4% - Epi 1:100.000 UI: 136 mg Septocaine w/ 0.034 mg epi (2 carpules) via Infiltration. Soft tissue reflected. #22, #23, #24, #25, #26, #27, and #28 was elevated and delivered with forceps. Socket #22, #23, #24, #25, #26, #27, and #28was curetted and irrigated with sterile water. Gelfoam with Vicryl 3 - 0 chromic were placed. Pt was given verbal and written post-op instructions. Estimated blood loss: Minimal Pt instructed to take OTC ibuprofen and acetaminophen for pain. Pt tolerated procedure well and discharged home with good hemostasis. Pt was discharged with good hemostasis. NV: RTC for eval for dentures Cosigned by Shameka Combs DMD at 09/13/2024 4:58 PM EDT Associated attestation - Shameka Combs DMD - 09/13/2024 4:58 PM EDT I have reviewed the resident's dental note. I was physically present in the clinic and immediately available throughout the entire procedure to provide direct supervision. documented in this encounter Plan of Treatment Upcoming Encounters Date Type Department Care Team ([facility] st Contact Info) Description 10/30/2024 8:00 AM EDT Clinical Support [facility] Hematology/BMT and Cellular Therapy Program [address] [phone] 10/30/2024 8:30 AM EDT Office Visit [facility] Hematology/BMT and Cellular Therapy Program [address] [phone] Radha Morelos, STITCH CLEANER 800 [facility] [address] [place] [phone] 11/13/2024 1:00 PM EDT Office Visit [facility] [address] [place] [address] Verena Montes PA [address] [address] 11/27/2024 1:30 PM EDT Clinical Support [facility] Hematology/BMT and Cellular Therapy Program [address] [phone] 11/27/2024 2:00 PM EDT Office Visit [facility] Hematology/BMT and Cellular Therapy Program [address] [phone] Mk Pastrana MD 800 [facility] [address] [place] [phone] documented as of this encounter Procedures Procedure Name Priority Date/Time Associated Diagnosis Comments 28 EXTRACTION, ERUPTED TOOTH OR EXPOSED ROOT (ELEVATION AND/OR FORCEPS REMOVAL) Routine 09/11/2024 3:00 PM EDT Extraction of tooth needed 27 EXTRACTION, ERUPTED TOOTH OR EXPOSED ROOT (ELEVATION AND/OR FORCEPS REMOVAL) Routine 09/11/2024 3:00 PM EDT Extraction of tooth needed 26 EXTRACTION, ERUPTED TOOTH OR EXPOSED ROOT (ELEVATION AND/OR FORCEPS REMOVAL) Routine 09/11/2024 3:00 PM EDT Extraction of tooth needed 25 EXTRACTION, ERUPTED TOOTH OR EXPOSED ROOT (ELEVATION AND/OR FORCEPS REMOVAL) Routine 09/11/2024 3:00 PM EDT Extraction of tooth needed 24 EXTRACTION, ERUPTED TOOTH OR EXPOSED ROOT (ELEVATION AND/OR FORCEPS REMOVAL) Routine 09/11/2024 3:00 PM EDT Extraction of tooth needed 23 EXTRACTION, ERUPTED TOOTH OR EXPOSED ROOT (ELEVATION AND/OR FORCEPS REMOVAL) Routine 09/11/2024 3:00 PM EDT Extraction of tooth needed 22 EXTRACTION, ERUPTED TOOTH OR EXPOSED ROOT (ELEVATION AND/OR FORCEPS REMOVAL) Routine 09/11/2024 3:00 PM EDT Extraction of tooth needed documented in this encounter Results * (ABNORMAL) CBC and differential (09/11/2024 3:05 PM EDT) WBC Count 2.47(L) 3.70 - 10.30 10*3/uL LAB HEMATOLOGY METHOD 09/11/2024 6:39 PM EDT [facility] RBC Count 3.47(L) 3.90 - 5.20 10*6/uL LAB HEMATOLOGY METHOD 09/11/2024 6:39 PM EDT [facility] HGB 11.2 11.2 - 15.7 g/dL LAB HEMATOLOGY METHOD 09/11/2024 6:39 PM EDT [facility] HCT 32.9(L) 34.0 - 45.0 % LAB HEMATOLOGY METHOD 09/11/2024 6:39 PM EDT [facility] Platelet Count 57(L) 155 - 369 10*3/uL LAB HEMATOLOGY METHOD 09/11/2024 6:39 PM EDT [facility] MCV 95 79 - 98 fL LAB HEMATOLOGY METHOD 09/11/2024 6:39 PM EDT [facility] MCH 32.3(H) 26.0 - 32.0 pg LAB HEMATOLOGY METHOD 09/11/2024 6:39 PM EDT [facility] MCHC 34.0 30.7 - 35.5 g/dL LAB HEMATOLOGY METHOD 09/11/2024 6:39 PM EDT [facility] RDW 17.1(H) 11.5 - 14.5 % LAB HEMATOLOGY METHOD 09/11/2024 6:39 PM EDT [facility] MPV 9.7 8.8 - 12.5 fL LAB HEMATOLOGY METHOD 09/11/2024 6:39 PM EDT [facility] nRBC 0.0 <=0.0 per 100 WBCs LAB HEMATOLOGY METHOD 09/11/2024 6:39 PM EDT [facility] Differential Type Automated LAB HEMATOLOGY METHOD 09/11/2024 6:39 PM EDT [facility] Neutrophils % 42 % LAB HEMATOLOGY METHOD 09/11/2024 6:39 PM EDT [facility] Lymphocytes % 47 % LAB HEMATOLOGY METHOD 09/11/2024 6:39 PM EDT [facility] Monocytes % 5 % LAB HEMATOLOGY METHOD 09/11/2024 6:39 PM EDT [facility] Eosinophils % 0 % LAB HEMATOLOGY METHOD 09/11/2024 6:39 PM EDT [facility] Basophils % 0 % LAB HEMATOLOGY METHOD 09/11/2024 6:39 PM EDT [facility] Immature Granulocytes % 6 % LAB HEMATOLOGY METHOD 09/11/2024 6:39 PM EDT [facility] Neutrophils Absolute 1.03(L) 1.60 - 6.10 10*3/uL LAB HEMATOLOGY METHOD 09/11/2024 6:39 PM EDT [facility] Lymphocytes Absolute 1.17(L) 1.20 - 3.90 10*3/uL LAB HEMATOLOGY METHOD 09/11/2024 6:39 PM EDT [facility] Monocytes Absolute 0.11(L) 0.30 - 0.90 10*3/uL LAB HEMATOLOGY METHOD 09/11/2024 6:39 PM EDT [facility] Eosinophils Absolute 0.01 0.00 - 0.50 10*3/uL LAB HEMATOLOGY METHOD 09/11/2024 6:39 PM EDT [facility] Basophils Absolute 0.01 0.00 - 0.10 10*3/uL LAB HEMATOLOGY METHOD 09/11/2024 6:39 PM EDT [facility] Immature Granulocytes Absolute 0.14(H) 0.00 - 0.06 10*3/uL LAB HEMATOLOGY METHOD 09/11/2024 6:39 PM EDT [facility] Blood Venous blood specimen / Unknown Venipuncture / Unknown 09/11/2024 3:05 PM EDT 09/11/2024 3:06 PM EDT Narrative [facility] - 09/11/2024 6:39 PM EDT Therapeutic decision making should be based on absolute values, rather than percentages. us Shameka Combs DMD LAB BLOOD ORDERABLES Final R esult [facility] [address] [place] [address] documented in this encounter Visit Diagnoses Diagnosis Cancer (CMS/HCC)- Primary Other malignant neoplasm of unspecified site Extraction of tooth needed documented in this encounter Additional Health Concerns Assessment Noted Time A Body Mass Index follow-up plan has been documented for the patient 09/11/2024 6:12 PM EDT documented as of this encounter Care Teams Letterer Relationship Specialty Start Date End Date Willi Forst MD [address] [place] [address] [address] [place] [address] PCP - General 06/11/24 documented as of this encounter
--- OUTSIDE RECORDS SUMMARY | 2024-09-25 10:00 | XMS_ITS | Encounter Summary ---
Author Organization [facility] Address [address] [place] [address] Care Team Providers Care Test Evaluator Name Role Phone Willi Frost MD Primary Care Provider [phone] Reason for Visit * Reason Comments Nurse Visit Labs * Genetic Testing (Routine) - Closed Specialty Diagnoses / Procedures Referred By Contac t Referred To Contact Lab Diagnoses CML (chronic myelocytic leukemia) (CMS/HCC) Procedures STR, Patient Specimen Mk Pastrana MD [address] [facility] [address] [place] [phone] Phone: tel: fax: Referral ID Status Reason Start Date Expiration Date Visits Re quested Visits Authorized [id number] Closed 09/11/2024 03/13/2026 1 1 Encounter Details Date Type Department Care Team (Latest Contact Info) Description 09/25/2024 10:00 AM EDT Clinical Support [facility] H[facility]ology[facility]BMT and Cellular Therapy [facility] [address] [place] [phone] CML (chronic myelocytic leukemia) (CMS/HCC) Social History Tobacco Use Types Packs/Day Years Used Date Smoking Tobacco: Former Cigarettes Smokeless Tobacco: Never PHQ-2 Answer Date [...] Upcoming Encounters Date Type Department Care Team ([facility] st Contact Info) Description 10/30/2024 8:00 AM EDT Clinical Support [facility] [address] [phone] 10/30/2024 8:30 AM EDT Office Visit [facility] [address] [phone] Radha Morelos, OIL PROCESSING TECHNICIAN [address] [facility] [address] [place] [phone] 11/13/2024 1:00 PM EDT Office Visit [address] [phone] [place] [address] Verena Montes PA [address] [phone] 11/27/2024 1:30 PM EDT Clinical Support [facility] [address] [phone] 11/27/2024 2:00 PM EDT Office Visit [facility] [address] [phone] Mk Pastrana MD 800 [facility] [address] [place] [phone] Pending Results Name Type Priority Associated Diagnoses Date /Time STR, Patient Specimen Lab Routine CML (chronic myelocytic leukemia) ([facility]/HCC) 09/25/2024 10:23 AM EDT documented as of this encounter Procedures Procedure Name Priority Date/Time Associated Diagnosis Comments ALTAF FONTANEZ VIRUS (EBV) QUANTITATIVE PCR Routine 09/25/2024 10:23 AM EDT CML (chronic myelocytic leukemia) (CMS/HCC) CREATININE CLEARANCE, PLASMA AND 24-HOUR URINE Routine 09/25/2024 10:23 AM EDT CML (chronic myelocytic leukemia) (CMS/HCC) CREATININE CLEARANCE, 24 HOUR URINE Routine 09/25/2024 10:23 AM EDT CML (chronic myelocytic leukemia) (CMS/HCC) ABO/RH Routine 09/25/2024 10:23 AM EDT CML (chronic myelocytic leukemia) (CMS/HCC) CREATININE, PLASMA Routine 09/25/2024 10 :23 AM EDT CML (chronic myelocytic leukemia) (CMS/HCC) TOXOPLASMA GONDII ANTIBODY, IGG (SO) Routine 09/25/2024 10:23 AM EDT CML (chronic myelocytic leukemia) (CMS/HCC) APTT Routine 09/25/2024 10:23 AM EDT CML (chronic myelocytic leukemia) (CMS/HCC) PROTHROMBIN TIME(PT) / INR Routine 09/25/2024 10:23 AM EDT CML (chronic myelocytic leukemia) (CMS/HCC) CBC WITH AUTO DIFFERENTIAL Routine 09/25/2024 10:23 AM EDT CML (chronic myelocytic leukemia) (CMS/HCC) TSH Routine 09/25/2024 10:23 AM EDT CML (chronic myelocytic leukemia) (CMS/HCC) LACTATE DEHYDROGENASE, PLASMA Routine 09/25/2024 10:23 AM EDT CML (chronic myelocytic leukemia) (CMS/HCC) FERRITIN, SERUM Routine 09/25/2024 10:23 AM EDT CML (chronic myelocytic leukemia) (CMS/HCC) COMPREHENSIVE METABOLIC PANEL, PLASMA Routine 09/25/2024 10:23 AM EDT CML (chronic myelocytic leukemia) (CMS/HCC) documented in this encounter Results * (ABNORMAL) Creatinine Clearance, 24 Hour Urine (09/25/2024 10:23 AM EDT) Hours Of Collection 24 HRS 09/25/2024 11:25 AM EDT [facility] Urine, Volume 200 mL 09/25/2024 11:25 AM EDT [facility] Creatinine, Urine 201 mg/dL 09/25/2024 11:25 AM EDT [facility] Creatinine, Plasma 0.65 0.60 - 1.10 mg/dL 09/25/2024 11:25 AM EDT [facility] Creatinine Clearance 42.95(L) 66.00 - 108.00 mL/min 09/25/2024 11:25 AM EDT [facility] Creatinine per day, Urine 402(L) 500 - 1,600 mg/d 09/25/2024 11:25 AM EDT [facility] Urine Urine specimen obtained by clean catch procedure / Unknown Non-blood Collection / Unknown 09/25/2024 10:23 AM EDT 09/25/2024 10:24 AM EDT us Mk Pastrana MD LAB URINE ORDERABLES Final Re sult [facility] [address] [place] [address] * Creatinine, Plasma (09/25/2024 10:23 AM EDT) Creatinine, Plasma 0.65 0.60 - 1.10 mg/dL 09/25/2024 11:17 AM EDT [facility] eGFRcr 106.1 mL/min/1.7 3m*2 09/25/2024 11:17 AM EDT [facility] Comment:Reported eGFRcr in m L/min/1.73m2 is based the CKD-EPI 2020 equation that does not use a race coefficient. Blood Venous blood specimen / Unknown Venipuncture / Unknown 09/25/2024 10:23 AM EDT 09/25/2024 10:34 AM EDT Mk Pastrana MD LAB BLOOD ORDERABLES Final Re sult Performing Organization Address City[facility]/ZIP Co de Phone Number [facility] [address] [place] [address] * APTT (09/25/2024 10:23 AM EDT) aPTT 28 25 - 35 sec LAB COAGULATION METHOD 09/25/2024 11:00 AM EDT [facility] Blood Venous blood specimen / Unknown Venipuncture / Unknown 09/25/2024 10:23 AM EDT 09/25/2024 10:34 AM EDT Mk Pastrana MD LAB BLOOD ORDERABLES Final Re sult Performing Organization Address [facility]/[place] [address] * Prothrombin Time/INR (09/25/2024 10:23 AM EDT) Prothrombin Time 12.7 12.0 - 14.3 sec LAB COAGULATION METHOD 09/25/2024 11:00 AM EDT [facility] INR 0.9 0.9 - 1.1 LAB COAGULATION METHOD 09/25/2024 11:00 AM EDT [facility] Blood Venous blood specimen / Unknown Venipuncture / Unknown 09/25/2024 10:23 AM EDT 09/25/2024 10:34 AM EDT Narrative [facility] - 09/25/2024 11:00 AM EDT OPTIMAL INR RANGES FOR PATIENT ON ORAL ANTICOAGULANT THERAPY Prevention of venous thromboembolism INR 2.0 to 3.0 In patients with heart disease: Atrial fibrillation INR 2.0 to 3.0 Valvular heart disease INR 2.0 to 3.0 Tissue heart valves INR 2.0 to 3.0 Mechanical prosthetic valves INR 2.5 to 3.5 Prevention of recurrent TN INR 2.5 to 3.5 us Mk Pastrana MD LAB BLOOD ORDERABLES Final Re sult Performing Organization Address [facility]/ZIP Co de Phone Number [facility] [address] [place] [address] * Toxoplasma gondii antibody, IgG (09/25/2024 10:23 AM EDT) TOXOPLASMA IGG AB 3.7 <=8.8 IU/mL 09/27/2024 1:29 AM EDT [facility] Blood Venous blood specimen / Unknown Venipuncture / Unknown 09/25/2024 10:23 AM EDT 09/25/2024 10:34 AM EDT Narrative [facility] - 09/27/2024 1:29 AM EDT INTERPRETIVE INFORMATION: Toxoplasma Ab, IgG 7.1 IU/mL or less....... Not Detected 7.2-8.7 IU/mL .......... Indeterminate-Repeat testing in 10-14 days may be helpful. 8.8 IU/mL or greater ... Detected The best evidence for current infection is a significant change on two appropriately timed specimens, where both tests are done in the same laboratory at the same time. This test should not be used for blood donor screening, associated re-entry protocols, or for screening Human Cell, Tissues and Cellular and Tissue-Based Products (HCT/P). The magnitude of the measured result is not indicative of the amount of antibody present. Performed By: [facility] [address] [place] [address] Manager [employer]: Sunil Gomez MD, PhD CLIA Number: [id number] Mk Pastrana MD LAB BLOOD ORDERABLES Final Re sult [facility] ([place]) [address] [place] [address] * Altaf Fontanez Virus (EBV) Quantitative PCR (09/25/2024 10:23 AM EDT) Pathologist [facility] Altaf Fontanez Virus, Blood, Quant DNA Interpretation Not Detected Not Detected 10/01/2024 6:35 AM EDT [facility] Blood Venous blood specimen / Unknown Venipuncture / Unknown 09/25/2024 10:23 AM EDT 09/25/2024 10:34 AM EDT Narrative [facility] - 10/01/2024 6:35 AM EDT EBV Linear Range: 2.7 to 6.7 log10 IU/mL (500 to 5 x 10e6 IU/mL) The limit of Detection (LOD) of this qPCR assay is 313 IU/mL [2.5 log10 IU/mL] and the Limit of Quantitation (LOQ) is 500 IU/mL [2.7 log10 IU/mL]. Results should be used in conjunction with clinical findings and should not be used as the sole basis for a diagnosis or treatment decision. This PCR assay was developed and it's performance characteristics determined by [facility] as appropriate for clinical purposes. This assay has not been cleared or approved by the FDA, but is performed in a CLIA regulated laboratory that is qualified to perform high-complexity testing. EBV Linear Range: 2.7 to 6.7 log10 IU/mL (500 to 5 x 10e6 IU/mL) The limit of Detection (LOD) of this qPCR assay is 313 IU/mL [2.5 log10 IU/mL] and the Limit of Quantitation (LOQ) is 500 IU/mL [2.7 log10 IU/mL]. Results should be used in conjunction with clinical findings and should not be used as the sole basis for a diagnosis or treatment decision. This PCR assay was developed and it's performance characteristics determined by [facility] as appropriate for clinical purposes. This assay has not been cleared or approved by the FDA, but is performed in a CLIA regulated laboratory that is qualified to perform high-complexity testing. Mk Pastrana MD LAB BLOOD ORDERABLES Final Re sult [facility] [address] [place] [address] * (ABNORMAL) Ferritin (09/25/2024 10:23 AM EDT) Ferritin, Serum 294(H) 13 - 150 ng/mL 09/25/2024 11:17 AM EDT [facility] Blood Venous blood specimen / Unknown Venipuncture / Unknown 09/25/2024 10:23 AM EDT 09/25/2024 10:35 AM EDT Mk Pastrana MD LAB BLOOD ORDERABLES Final Re sult Performing Organization Address [facility]/ZIP Co de Phone Number [facility] [address] [place] [address] * LDH (09/25/2024 10:23 AM EDT) LDH, Plasma 192 116 - 250 U/L 09/25/2024 11:17 AM EDT [facility] Blood Venous blood specimen / Unknown Venipuncture / Unknown 09/25/2024 10:23 AM EDT 09/25/2024 10:34 AM EDT Mk Pastrana MD LAB BLOOD ORDERABLES Final Re sult Performing Organization Address [facility] [place] [address] * Thyroid Stimulating Hormone, Plasma (09/25/2024 10:23 AM EDT) Thyroid Stimulating Hormone, Plasma 1.01 0.40 - 4.20 uIU/mL 09/25/2024 11:17 AM EDT [facility] Blood Venous blood specimen / Unknown Venipuncture / Unknown 09/25/2024 10:23 AM EDT 09/25/2024 10:34 AM EDT Narrative [facility] - 09/25/2024 11:17 AM EDT Trimester Specific Ranges TSH ( IU/mL) 1st Trimester 0.1 - 3.0 2nd Trimester 0.19 - 4.06 3rd Trimester 0.3 - 3.7 Mk Pastrana MD LAB BLOOD ORDERABLES Final Re sult Performing Organization Address [facility]/[place] [address] * ABO/Rh Type (09/25/2024 10:23 AM EDT) ABO/Rh AB Positive 09/25/2024 10:12 AM EDT [facility] Blood Venous blood specimen / Unknown Venipuncture / Unknown 09/25/2024 10:23 AM EDT 09/25/2024 10:39 AM EDT us Mk Pastrana MD LAB BLOOD BANK TEST ORDERABLE S Final Result [facility] [address] [place] [address], [place] * CMP (09/25/2024 10:23 AM EDT) Glucose, Plasma 85 74 - 99 mg/dL 09/25/2024 11:17 AM EDT [facility] BUN, Plasma 12 7 - 21 mg/dL 09/25/2024 11:17 AM EDT [facility] Creatinine, Plasma 0.65 0.60 - 1.10 mg/dL 09/25/2024 11:17 AM EDT [facility] BUN/Creatinine Ratio 18 09/25/2024 11:17 AM EDT [facility] Sodium, Plasma 140 136 - 145 mmol/L 09/25/2024 11:17 AM EDT [facility] Potassium, Plasma 4.3 3.6 - 4.9 mmol/L 09/25/2024 11:17 AM EDT [facility] Chloride, Plasma 106 97 - 107 mmol/L 09/25/2024 11:17 AM EDT [facility] CO2, Plasma 23 22 - 29 mmol/L 09/25/2024 11:17 AM EDT [facility] Anion Gap 11 6 - 16 mmol/L 09/25/2024 11:17 AM EDT [facility] Total Calcium, Plasma 9.7 8.9 - 10.2 mg/dL 09/25/2024 11:17 AM EDT [facility] Total Protein 7.7 6.3 - 7.9 g/dL 09/25/2024 11:17 AM EDT [facility] Albumin, Plasma 4.8 3.5 - 5.2 g/dL 09/25/2024 11:17 AM EDT [facility] AST, Plasma 17 10 - 35 U/L 09/25/2024 11:17 AM EDT [facility] ALT, Plasma 12 10 - 35 U/L 09/25/2024 11:17 AM EDT [facility] Alkaline Phosphatase, Plasma 100 35 - 104 U/L 09/25/2024 11:17 AM EDT [facility] Total Bilirubin, Plasma 0.8 0.2 - 1.1 mg/dL 09/25/2024 11:17 AM EDT [facility] eGFRcr 106.1 mL/min/1.7 3m*2 09/25/2024 11:17 AM EDT [facility] Comment:Reported eGFRcr in m L/min/1.73m2 is based the CKD-EPI 2020 equation that does not use a race coefficient. Blood Venous blood specimen / Unknown Venipuncture / Unknown 09/25/2024 10:23 AM EDT 09/25/2024 10:34 AM EDT us Mk Pastrana MD LAB BLOOD ORDERABLES Final Re sult [facility] [address] [place] [address] * (ABNORMAL) CBC and Differential (09/25/2024 10:23 AM EDT) WBC Count 1.98(L) 3.70 - 10.30 10*3/uL LAB HEMATOLOGY METHOD 09/25/2024 11:15 AM EDT [facility] RBC Count 3.68(L) 3.90 - 5.20 10*6/uL LAB HEMATOLOGY METHOD 09/25/2024 11:15 AM EDT [facility] HGB 12.1 11.2 - 15.7 g/dL LAB HEMATOLOGY METHOD 09/25/2024 11:15 AM EDT [facility] HCT 35.4 34.0 - 45.0 % LAB HEMATOLOGY METHOD 09/25/2024 11:15 AM EDT [facility] Platelet Count 61(L) 155 - 369 10*3/uL LAB HEMATOLOGY METHOD 09/25/2024 11:15 AM EDT [facility] MCV 96 79 - 98 fL LAB HEMATOLOGY METHOD 09/25/2024 11:15 AM EDT [facility] MCH 32.9(H) 26.0 - 32.0 pg LAB HEMATOLOGY METHOD 09/25/2024 11:15 AM EDT [facility] MCHC 34.2 30.7 - 35.5 g/dL LAB HEMATOLOGY METHOD 09/25/2024 11:15 AM EDT [facility] RDW 17.5(H) 11.5 - 14.5 % LAB HEMATOLOGY METHOD 09/25/2024 11:15 AM EDT [facility] MPV 11.0 8.8 - 12.5 fL LAB HEMATOLOGY METHOD 09/25/2024 11:15 AM EDT [facility] nRBC 0.0 <=0.0 per 100 WBCs LAB HEMATOLOGY METHOD 09/25/2024 11:15 AM EDT [facility] Differential Type Automated LAB HEMATOLOGY METHOD 09/25/2024 11:15 AM EDT [facility] Neutrophils % 21 % LAB HEMATOLOGY METHOD 09/25/2024 11:15 AM EDT [facility] Lymphocytes % 73 % LAB HEMATOLOGY METHOD 09/25/2024 11:15 AM EDT [facility] Monocytes % 4 % LAB HEMATOLOGY METHOD 09/25/2024 11:15 AM EDT [facility] Eosinophils % 1 % LAB HEMATOLOGY METHOD 09/25/2024 11:15 AM EDT [facility] Basophils % 1 % LAB HEMATOLOGY METHOD 09/25/2024 11:15 AM EDT [facility] Immature Granulocytes % 0 % LAB HEMATOLOGY METHOD 09/25/2024 11:15 AM EDT [facility] Neutrophils Absolute 0.42(LL) 1.60 - 6.10 10*3/uL LAB HEMATOLOGY METHOD 09/25/2024 11:15 AM EDT [facility] Lymphocytes Absolute 1.46 1.20 - 3.90 10*3/uL LAB HEMATOLOGY METHOD 09/25/2024 11:15 AM EDT [facility] Monocytes Absolute 0.07(L) 0.30 - 0.90 10*3/uL LAB HEMATOLOGY METHOD 09/25/2024 11:15 AM EDT [facility] Eosinophils Absolute 0.02 0.00 - 0.50 10*3/uL LAB HEMATOLOGY METHOD 09/25/2024 11:15 AM EDT [facility] Basophils Absolute 0.01 0.00 - 0.10 10*3/uL LAB HEMATOLOGY METHOD 09/25/2024 11:15 AM EDT [facility] Immature Granulocytes Absolute 0.00 0.00 - 0.06 10*3/uL LAB HEMATOLOGY METHOD 09/25/2024 11:15 AM EDT [facility] Blood Venous blood specimen / Unknown Venipuncture / Unknown 09/25/2024 10:23 AM EDT 09/25/2024 10:34 AM EDT Narrative [facility] - 09/25/2024 11:15 AM EDT Therapeutic decision making should be based on absolute values, rather than percentages. us Mk Pastrana MD LAB BLOOD ORDERABLES Final Re sult [facility] [address] [place] [address] documented in this encounter Visit Diagnoses Diagnosis CML (chronic myelocytic leukemia) (CMS/HCC) Chronic myeloid leukemia, without mention of having achieved remission documented in this encounter Additional Health Concerns Assessment Noted Time A Body Mass Index follow-up plan has been documented for the patient 09/11/2024 6:12 PM EDT documented as of this encounter Care Teams Test Evaluator Relationship Specialty Start Date End Date Willi Frost MD [address] [place] [address] [address] [place] [address] PCP - General 06/11/24 documented as of this encounter
--- OUTSIDE RECORDS SUMMARY | 2024-09-25 11:00 | XMS_ITS | Encounter Summary ---
Author Organization [facility] Address [address] [place] [address] Care Team Providers Care Compressor Mechanic Bus Name Role Phone Willi Frost MD Primary Care Provider Reason for Visit * Reason Comments Chronic Myelogenous Leukemia Encounter Details Date Type Department Care Team ([facility] st Contact Info) Description 09/25/2024 11:00 AM EDT Office Visit [facility] Hematology/BMT and Cellular Therapy Program [address] [phone] Elena Ledezma, CONSTRUCTION MGR 800 [facility] [address] [place] [address] CML (chronic myelocytic leukemia) (CMS/HCC) [...] Notes * Progress Notes - Elena Ledezma, CONSTRUCTION MGR - 09/25/2024 11:00 AM EDT Patient Information [...] mg p.o. nightly. 10/2023 - Relocated to [facility] and established care with Fredrick Bateman in [place], [place], for hematology/oncology follow-up. By that point, the patient had been on nilotinib 300 mg p.o. twice daily for several weeks. CBC with differential was normal. BCR-ABL testing on peripheral bloodrevealed PCR positivity of 26.98% (b2a2 transcript), 17.66% (B3 A2 transcript, [id number]), and 0.0403% (ela2, D264-crfke transcript). The recommendation was to continue current therapy. 11/22/23 - Transferred care to hematology/oncology. The recommendation was to continue therapy [...] edema. I also discussed the risk of uwmdk-ujsoak-fctc disease (acute or chronic), which may require [...] Upcoming Encounters Date Type Department Care Team ([facility] st Contact Info) Description 10/30/2024 8:00 AM EDT Clinical Support [facility] Hematology/BMT and Cellular Therapy Program [address] [phone] 10/30/2024 8:30 AM EDT Office Visit [facility] Hematology/BMT and Cellular Therapy Program [address] [phone] Radha Morelos APRN 800 [facility] [address] [phone] 11/13/2024 1:00 PM EDT Office Visit [address] [phone] Verena Montes PA [address] [place] [phone] 11/27/2024 1:30 PM EDT Clinical Support [facility] Hematology/BMT and Cellular Therapy Program [address] [phone] 11/27/2024 2:00 PM EDT Office Visit [facility] Hematology/BMT and Cellular Therapy Program [address] [phone] Mk Pastrana MD 800 [facility] [address] [place] [phone] documented as of this encounter Procedures Procedure Name Priority Date/Time Associated Diagnosis Comments ECG ADULT Routine 09/25/2024 10:38 AM EDT CML (chronic myelocytic leukemia) (CMS/HCC) documented in this encounter Results * ECG Adult (09/25/2024 10:38 AM EDT) EKG DIAGNOSIS CLASS Borderline Abnormal MUSE ECG Ventricular Rate 72 BPM MUSE ECG Atrial Rate 72 BPM MUSE ECG HI Interval 122 ms MUSE ECG QRSD Interval 64 ms MUSE ECG QT Interval 406 ms MUSE ECG QTC Interval 444 ms MUSE ECG P Linden 71 degrees MUSE ECG R Linden 54 degrees MUSE ECG T Wave [place] 87 degrees MUSE ECG Diagnosis Normal sinus rhythm MUSE ECG Diagnosis Low voltage QRS MUSE ECG Diagnosis Borderline ECG MUSE ECG Diagnosis MUSE ECG Diagnosis Confirmed by Arsalan Ko ([id number]) on 09/25/2024 11:05:04 AM MUSE ECG 09/25/2024 [...] documented as of this encounter Care Teams Compressor Mechanic Bus Relationship Specialty Start Date End Date Willi Frost MD [address] [place] [address] [address] [place] [address] PCP - General 06/11/24 documented as of this encounter
--- OUTSIDE RECORDS SUMMARY | 2024-09-25 13:00 | XMS_ITS | Encounter Summary ---
Author Organization [facility] Address [address] [place] [address] Care Team Providers Care Social Service Technician Name Role Phone Willi Frost MD Primary Care Provider [phone] Reason for Visit * Reason Comments Social Work * Consultation (Routine) - Closed Specialty Diagnoses / Procedures Referred By Contac t Referred To Contact Diagnoses CML (chronic myelocytic leukemia) (CMS/HCC) Mk Pastrana MD 800 [facility] [address] [place] [phone] Phone: tel: fax: Referral ID Status Reason Start Date Expiration Date V isits Requested Visits Authorized [id number] Closed Specialty Services Required 09/11/2024 03/13/2026 1 1 Encounter Details Date Type Department Care Team ([facility] st Contact Info) Description 09/25/2024 1:00 PM EDT Clinical Support [facility] Hematology/BMT and Cellular Therapy Program 750 [facility] [place] [phone] Jocelin Ahuja RN [facility] CANCER EMBLEM AMB SERV ADMIN Social History Tobacco Use [...] Upcoming Encounters Date Type Department Care Team ([facility] st Contact Info) Description 10/30/2024 8:00 AM EDT Clinical Support [facility] Hematology/BMT and Cellular Therapy Program [address] [phone] 10/30/2024 8:30 AM EDT Office Visit [facility] Hematology/BMT and Cellular Therapy Program [address] [phone] Radha Morelos, HEALTHCARE TECHNICIAN 800 [facility] [address] [place] [phone] 11/13/2024 1:00 PM EDT Office Visit [facility] [address] [place] [phone] Verena Montes PA [address] [phone] 11/27/2024 1:30 PM EDT Clinical Support [facility] Hematology/BMT and Cellular Therapy Program [address] [place] [phone] 11/27/2024 2:00 PM EDT Office Visit [facility] Hematology/BMT and Cellular Therapy Program [address] [phone] Mk Pastrana MD 800 [facility] [address] [place] [phone] documented as of this encounter Visit Diagnoses Not on filedocumented in this encounter Additional Health Concerns Assessment Noted Time A Body Mass Index follow-up plan has been documented for the patient 09/11/2024 6:12 PM EDT documented as of this encounter Care Teams Social Service Technician Relationship Specialty Start Date End Date Willi Frost MD [address] [facility] [address] [place] [address] PCP - General 06/11/24 documented as of this encounter
--- OUTSIDE RECORDS SUMMARY | 2024-09-25 13:24 | XMS_ITS | Encounter Summary ---
Author Organization [facility] Address [address] [place] [address] Care Team Providers Care Prefitter Doors Name Role Phone Willi Frost MD Primary Care Provider Encounter Details Date Type Department Care Team (Latest Contact Info) Description 09/25/2024 1:24 PM EDT - 09/25/2024 1:59 PM EDT Hospital Encounter [facility] [address], 1st [place] [phone] Discharge Disposition: Home or Self Care Social [...] [address], [address] [place] [phone] 10/30/2024 8:30 AM EDT Office Visit [facility] Hematology/BMT and Cellular Therapy Program [address] [phone] Radha Morelos, DRY JANITOR 800 [facility] [address] [place] [phone] 11/13/2024 1:00 PM EDT Office Visit [facility] [address] [place] [phone] Verena Montes PA [address] [phone] 11/27/2024 1:30 PM EDT Clinical Support [facility] Hematology/BMT and Cellular Therapy Program [address] [phone] 11/27/2024 2:00 PM EDT Office Visit [facility] Hematology/BMT and Cellular Therapy Program [address] [phone] Mk Pastrana MD 800 [facility] [address] [place] [phone] documented as of this encounter Procedures Procedure [...] documented as of this encounter Care Teams Prefitter Doors Relationship Specialty Start Date End Date Willi Frost MD [address] [facility] [address] [place] [address] PCP - General 06/11/24 documented as of this encounter
--- OUTSIDE RECORDS SUMMARY | 2024-09-25 14:00 | XMS_ITS | Encounter Summary ---
Author Organization [facility] Address [address] [place] [address] Care Team Providers Care Principal Cloud Architect Name Role Phone Willi Frost MD Primary Care Provider [phone] Reason for Referral * Imaging (Routine) - Closed Specialty Diagnoses / Procedures Referred By Contac t Referred To Contact Cardiology Diagnoses CML (chronic myelocytic leukemia) (CMS/HCC) Procedures Echo, Adult Transthoracic Complete Mk Pastrana MD 800 [facility] [address] [address] Phone: tel: fax: Referral ID Status Reason Start Date Expiration Date V isits Requested Visits Authorized [id number] Closed Perform Procedure 09/11/2024 03/13/2026 1 1 Reason for Visit * Reason Comments Procedure Echo * Imaging (Routine) - Closed Specialty Diagnoses / Procedures Referred By Contac t Referred To Contact Cardiology Diagnoses CML (chronic myelocytic leukemia) (CMS/HCC) Procedures Echo, Adult Transthoracic Complete Mk Pastrana MD [address] [facility] [address] [phone] Phone: tel: fax: Referral ID Status Reason Start Date Expiration Date V isits Requested Visits Authorized [id number] Closed Perform Procedure 09/11/2024 03/13/2026 1 1 Encounter Details Date Type Department Care Team (Latest Contact Info) Description 09/25/2024 2:00 PM EDT - 09/25/2024 2:59 PM EDT Hospital Encounter [facility] Echo [address] [place] [phone] CML (chronic myelocytic leukemia) (CMS/HCC) Discharge Disposition: [...] Hematology/BMT and Cellular Therapy Program [address] [place] [phone] 10/30/2024 8:30 AM EDT Office Visit [facility] Hematology/BMT and Cellular Therapy Program [address] [place] [phone] Radha Morelos, PRESSURISED CONTAINER FILLER [address] [facility] [address] [place] [phone] 11/13/2024 1:00 PM EDT Office Visit [facility] [address] [facility] [place] [address] Verena Montes PA [address] [facility] [address] [place] [address] 11/27/2024 1:30 PM EDT Clinical Support [facility] Hematology/BMT and Cellular Therapy Program [address] [phone] 11/27/2024 2:00 PM EDT Office Visit [facility] Hematology/BMT and Cellular Therapy Program [address] [phone] Mk Pastrana MD [address] [facility] [address] [place] [phone] documented as of this encounter Procedures Procedure [...] Root Diam 32 mm WINDY ISCV PA [place](ACCEL) 18.7 mmHg WINDY ISCV LV Lat e' [...] is no recent study available for direct eugn-gt-fgjp comparison. Left Ventricle The left ventricle is [...] is no recent study available for direct seeu-us-kjqe comparison. us Mk Pastrana MD CV ECHO [...] documented as of this encounter Care Teams Principal Cloud Architect Relationship Specialty Start Date End Date Willi Frost MD [address] [place] [address] PCP - General 06/11/24 documented as of this encounter
--- OUTSIDE RECORDS SUMMARY | 2024-09-25 15:00 | XMS_ITS | Encounter Summary ---
Author Organization [facility] Address [address] [place] [address] Care Team Providers Care Tobacco Roller Name Role Phone Willi Frost MD Primary Care Provider Encounter Details Date Type Department Care Team (Latest Contact Info) Description 09/25/2024 3:00 PM EDT - 09/25/2024 11:59 PM EDT Hospital Encounter P[facility] H Pulmonary Function Testing [address] [place] [phone] CML (chronic myelocytic leukemia) ([facility]) Discharge Disposition: Home or Self [...] Hematology/BMT and Cellular Therapy Program 750 [facility] [address] [place] [place] [phone] 10/30/2024 8:30 AM EDT Office Visit [facility] Hematology/BMT and Cellular Therapy Program [address] [place] [phone] Radha Morelos, LOFT WORKER 800 [facility] [address] [place] [phone] 11/13/2024 1:00 PM EDT Office Visit [facility] [address] [place] [address] Verena Montes PA [address] [phone] 11/27/2024 1:30 PM EDT Clinical Support [facility] Hematology/BMT and Cellular Therapy Program [address] [place] [phone] 11/27/2024 2:00 PM EDT Office Visit [facility] Hematology/BMT and Cellular Therapy Program [address] [place] [phone] Mk Pastrana MD 800 [facility] [address] [place] [phone] documented as of this encounter Procedures Procedure Name Priority Date/Time Associated Diagnosis Comments MI BREATHING CAPACITY TEST Routine 09/25/2024 4:31 PM EDT CML (chronic myelocytic leukemia) (CMS/HCC) documented in this encounter Results * Pulmonary function testing (09/25/2024 4:31 PM EDT) SQA1RLL 3.21 L 09/25/2024 4:28 PM EDT VYAIRE [...] 1.98 09/25/2024 4:28 PM EDT VYAIRE PFT [id number] -0.62 09/25/2024 4:28 PM EDT VYAIRE PFT FEV1_Pre%Pred 92 % % 09/25/2024 4:28 PM EDT VYAIRE PFT FEV1 PREDAUTH US_Quanjer GLI (2011) 09/25/2024 4:28 PM EDT VYAIRE PFT FEV1 Z-SCORE -0.62 09/25/2024 4:28 PM EDT VYAIRE PFT FEV1/FVC PRE 73.32 % 09/25/2024 4:28 PM EDT VYAIRE PFT GLB4XMXXNKR 81 09/25/2024 4:28 PM EDT VYAIRE PFT FEV1/FVC PRELLN 71 4:28 PM EDT VYAIRE PFT NYX6TLWDDQVHZGZL -1.25 09/26/19 4:28 PM EDT VYAIRE PFT PME4HOCAVL%PRED 91 % % 4:28 PM EDT VYAIRE PFT BBR5KJNIBQXL US_Quanjer GLI (2011) 09/25/2024 4:28 PM EDT VYAIRE PFT VNP3ZWKXNRIPO -1 09/25/2024 4:28 PM EDT VYAIRE PFT UIQ06-52% PRE 1.73 L/s 09/25/2024 4:28 PM EDT VYAIRE PFT PME27-38%_Pred 2.51 09/25/2024 4:28 PM EDT VYAIRE PFT AIM68-64% PRELLN 1.38 09/26/19 4:28 PM EDT VYAIRE PFT LFQ5599%PREZSCORE -1.08 025 4:28 PM EDT VYAIRE PFT PZS4158%PRE%PRED 69 % % 09/26/19 4:28 PM EDT VYAIRE PFT ZJE9843%[facility] US_Quanjer GLI (2011) 09/25/2024 4:28 [...] (1992) 09/25/2024 4:28 PM EDT VYAIRE PFT CGCWXGBXPLASIMSF0YPP 13.30 ml/(min* mmHg) 09/25/2024 4:28 PM EDT VYAIRE PFT DLCOSINGLEBREATH PRED 20.70 09/25/2024 4:28 PM EDT VYAIRE PFT DLCOSINGLEBREATH LLN 16.09 09/08 4:28 PM EDT VYAIRE PFT DLCOSINGLEBREATH Z-SCORE -2.83 09/25/2024 4:28 PM EDT VYAIRE PFT DLCOSINGLEBREATH % PRED 64.2 % 09/25/2024 4:28 PM EDT VYAIRE PFT DLCOSINGLEBREATH [facility] Stanarianna TLCO GLI (2019) 09/25/2024 4:28 PM EDT VYAIRE PFT DLCOSINGLEBREATH Z-SCORE -2.83 09/25/2024 4:28 PM EDT VYAIRE PFT EKLUMGSQTAEQGDAKG8CT E 13.88 ml/(min* mmHg) 09/25/2024 4:28 PM EDT VYAIRE PFT DLCOCSINGLEBREATH PRED 20.70 09/25/2024 4:28 PM EDT VYAIRE PFT DLCOCSINGLEBREATH LLN 16.09 09/25/2024 4:28 PM EDT VYAIRE PFT DLCOCSINGLEBREATH Z-SCORE -2.56 09/25/2024 4:28 PM EDT VYAIRE PFT DLCOCSINGLEBREATH % PRED 67.1 % 09/25/2024 4:28 PM EDT VYAIRE PFT DLCOCSINGLEBREATH PREDAUTH Stanojevic TLCO GLI (2019) 09/25/2024 4:28 PM EDT VYAIRE PFT GPLJBU3KJZ 2.90 ml/(min* mmHg*L) 09/25/2024 4:28 PM EDT VYAIRE PFT DLCOVAPRED 4.27 09/25/2024 4:28 PM EDT VYAIRE PFT DLCOVALLN 3.33 09/25/2024 4:28 PM EDT VYAIRE PFT DLCOVAZSCORE -2.47 09/25/2024 4:28 PM EDT VYAIRE PFT DLCOVA%PRED 68.0 % 09/25/2024 4:28 PM EDT VYAIRE PFT DLCOVAPREDAUTH Stanojevic TLCO GLI (2019) 09/25/2024 4:28 PM EDT VYAIRE PFT DLCOVAZSCORE -2.47 09/25/2024 4:28 PM EDT VYAIRE PFT ARRIKHGQY4RVN 3.03 ml/(min* mmHg*L) 09/25/2024 4:28 PM EDT VYAIRE PFT DLCOC SB/VA PRED 4.27 09/26/19 4:28 PM EDT VYAIRE PFT DLCOC SB/VA LLN 3.33 4:28 PM EDT VYAIRE PFT DLCOC SB/VA Z-SCORE -2.21 09/25 4:28 PM EDT VYAIRE PFT DLCOC SB/VA % PRED 71.0 % 2024 4:28 PM EDT VYAIRE PFT DLCOC SB/VA [facility] Cherry TLCO GLI (2019) 09/25/2024 4:28 PM EDT VYAIRE PFT DLCOC SB/VA Z-SCORE -2.21 09/25 4:28 PM EDT VYAIRE PFT DQJVDWRSXQLZYW3CUC 4.58 L 2024 4:28 PM EDT VYAIRE PFT VASINGLEBREATH PRED 4.88 09/25 4:28 PM EDT VYAIRE PFT VASINGLEBREATH LLN 3.98 2024 4:28 PM EDT VYAIRE PFT VASINGLEBREATH Z-SCORE -0.52 09/25/2024 4:28 PM EDT VYAIRE PFT VASINGLEBREATH % PRED 94.0 % 09/25/2024 4:28 PM EDT VYAIRE PFT VASINGLEBREATH [facility] Cherry TLCO GLI (2019) 09/25/2024 4:28 PM EDT VYAIRE PFT VASINGLEBREATH Z-SCORE -0.52 09/25/2024 4:28 PM EDT VYAIRE PFT VTIIGNAGQDBPCZO5EWZ 3.10 L 09/25 4:28 PM EDT VYAIRE PFT IVCSINGLEBREATH PRED 3.18 09/08 4:28 PM EDT VYAIRE PFT IVCSINGLEBREATH LLN 2.51 09/25 4:28 PM EDT VYAIRE PFT IVCSINGLEBREATH Z-SCORE -0.19 09/25/2024 4:28 PM EDT VYAIRE PFT IVCSINGLEBREATH % PRED 97.5 % 09/25/2024 4:28 PM EDT VYAIRE PFT IVCSINGLEBREATH [facility] _Quanjer GLI (2011) 09/25/2024 4:28 PM EDT VYAIRE PFT HB PRE 12.10 g(Hb)/dL 09/25/2024 4:28 PM EDT VYAIRE PFT ARS3LBY 5.21 L 09/25/2024 4:28 PM EDT VYAIRE [...] (2019)__ 09/25/2024 4:28 PM EDT VYAIRE PFT MGCOGNNR1OSZ 2.74 L 09/25/2024 4:28 PM EDT VYAIRE [...] (2019)__ 09/25/2024 4:28 PM EDT VYAIRE PFT LHX8IDD 0.68 L 09/25/2024 4:28 PM EDT VYAIRE [...] (2019)__ 09/25/2024 4:28 PM EDT VYAIRE PFT RV%PBM8EHJ 38.52 % 09/25/2024 4:28 PM EDT VYAIRE PFT RV%TLCPRED 30 09/25/2024 4:28 PM EDT VYAIRE PFT RV%TLCLLN 19 09/25/2024 4:28 PM EDT VYAIRE PFT RV%TLCULN 41 09/25/2024 4:28 PM EDT VYAIRE PFT RV%TLCZSCORE 1.32 09/25/2024 4:28 PM EDT VYAIRE PFT RV%TLC%PRED 130.0 % 09/25/2024 4:28 PM EDT VYAIRE PFT RV%TLCPREDAUTH [facility] volumes GLI (2019)__ 09/25/2024 4:28 PM EDT VYAIRE PFT XYZ0HNM 2.89 L 09/25/2024 4:28 PM EDT VYAIRE PFT Anatomical Region Laterality Modality PFT 09/25/2024 3:47 PM EDT Narrative 09/30/2024 8:27 AM EDT Pulmonary Function Testing Report Amita Ortiz 54 y.o. underwent pulmonary function testing today at the [facility]. The patient underwent spirometry, lung volumes [...] documented as of this encounter Care Teams Tobacco Roller Relationship Specialty Start Date End Date Willi Frost MD [address] [place] [address] [address] [place] [address] PCP - General 06/11/24 documented as of this encounter
--- OUTSIDE RECORDS SUMMARY | 2024-10-03 08:30 | XMS_ITS | Encounter Summary ---
Author Organization [facility] Address [address] [place] [address] Care Team Providers Care Media Sales Executive Name Role Phone Willi Frost MD Primary Care Provider Reason for Visit * Reason Comments Labs Nurse Visit Encounter Details Date Type Department Care Team ([facility] Contact Info) Description 10/03/2024 8:30 AM EDT Clinical Support P[facility] CC Hematology/BMT and Cellular Therapy Program [address] [phone] Social History Tobacco Use Types Packs/Day Years [...] Upcoming Encounters Date Type Department Care Team ([facility] Contact Info) Description 10/30/2024 8:00 AM EDT Clinical Support P[facility] CC Hematology/BMT and Cellular Therapy Program [address] [phone] 10/30/2024 8:30 AM EDT Office Visit [facility] CC Hematology/BMT and Cellular Therapy Program [address] [phone] Radha Morelso, MOLD PRESS OPERATOR [address] [facility] [address] [place] [phone] 11/13/2024 1:00 PM EDT Office Visit [facility] [address] [place] [address] Verena Montes PA 3101 [facility] [address] [place] [phone] 11/27/2024 1:30 PM EDT Clinical Support PAV CC Hematology/BMT and Cellular Therapy Program [address] [place] [phone] 11/27/2024 2:00 PM EDT Office Visit [facility] CC Hematology/BMT and Cellular Therapy Program [address] [place] [address] Mk Pastrana MD 800 [facility] [address] [place] [phone] documented as of this encounter Visit Diagnoses Not on filedocumented in this encounter Additional Health Concerns Assessment Noted Time A Body Mass Index follow-up plan has been documented for the patient 09/11/2024 6:12 PM EDT documented as of this encounter Care Teams Media Sales Executive Relationship Specialty Start Date End Date Willi Frost MD [facility] [address] [place] [address] PCP - General 06/11/24 documented as of this encounter
--- OUTSIDE RECORDS SUMMARY | 2024-10-03 09:00 | XMS_ITS | Encounter Summary ---
Author Organization [facility] Address [address] [place] [address] Care Team Providers Care Lead Vulcanizing Operator Name Role Phone Willi Frost MD Primary Care Provider [phone] Reason for Visit * Reason Comments Procedure * Genetic Testing (Routine) - Authorized Specialty Diagnoses / Procedures Referred By Contac t Referred To Contact Lab Diagnoses CML (chronic myelocytic leukemia) (CMS/HCC) Procedures Leukemia/Lymphoma - Immunophenotyping by Flow Cytometry Mk Pastrana MD [address] [facility] [address] [place] [phone] Phone: tel: fax: Referral ID Status Reason Start Date Expiration Date V isits Requested Visits Authorized [id number] Authorized 08/20/2024 02/19/2026 1 1 Encounter Details Date Type Department Care Team (Latest Contact Info) Description 10/03/2024 9:00 AM EDT Procedure Visit [facility] Hematology/BMT and Cellular Therapy Program [address] [place] [place] [address] Bhavana Bella, MARCY [address] [facility] [address] [place] [phone] CML (chronic myelocytic leukemia) (CMS/HCC) (Primary [...] to surronding structures. Alternatives discussed: Delayed treatment Siloam protocol: Procedure explained and questions answered to [...] Description 10/30/2024 8:00 AM EDT Clinical Support [facility] Hematology/BMT and Cellular Therapy Program [address] [phone] 10/30/2024 8:30 AM EDT Office Visit [facility] H[facility]ology/BMT and Cellular Therapy Program [address] [phone] Radha Morelos APRN [address] [facility] [address] [place] [phone] 11/13/2024 1:00 PM EDT Office Visit [facility] [address] [place] [address] Verena Montes PA [address] [facility] [address] [place] [address] 11/27/2024 1:30 PM EDT Clinical Support [facility] Hematology/BMT and Cellular Therapy Program [address] [place] [address] 11/27/2024 2:00 PM EDT Office Visit [facility]ology[facility]BMT and Cellular Therapy Program [address] [place] [address] Mk Pastrana MD [address] [facility] [address] [place] [phone] documented as of this encounter Procedures Procedure Name Priority Date/Time Associated Diagnosis Comments BIOPSY BONE MARROW Routine 10/03/2024 9: 00 AM EDT CML (chronic myelocytic leukemia) ([facility]/HCC) MYELOID FOCUSED PANEL, 50 GENE Routine 10/03/2024 8:48 AM EDT CML (chronic myelocytic leukemia) ([facility]/HCC) FISH, ONCOLOGY Routine 10/03/2024 8:48 AM EDT CML (chronic myelocytic leukemia) ([facility]) CYTOGENETICS TESTING, ONCOLOGY Routine 10/03/2024 8:48 AM EDT CML (chronic myelocytic leukemia) ([facility]) CHROMOSOME KARYOTYPE, ONCOLOGY Routine 10/03/2024 8:48 AM EDT CML (chronic myelocytic leukemia) ([facility]) LEUKEMIA/LYMPHOMA - IMMUNOPHENOTYPING BY FLOW CYTOMETRY Routine 10/03/2024 8:48 AM EDT CML (chronic myelocytic leukemia) ([facility]) BONE MARROW EXAM Routine 10/03/2024 8:48 AM EDT CML (chronic myelocytic leukemia) ([facility]) CBC WITH AUTO DIFFERENTIAL Routine 10/03/2024 8:18 AM EDT CML (chronic myelocytic leukemia) ([facility]) documented in this encounter Results * BIOPSY [...] to surronding structures. Alternatives discussed: Delayed treatment Siloam protocol: Procedure explained and questions answered to [...] Type Bone Marrow 10/10/2024 2:57 PM EDT [facility] Clinical Indication Chronic Myelogenous Leukemia 10/10/2024 2:57 PM EDT [facility] Specimen Adequacy Adequate 025 2:57 PM EDT [facility] Interpretation ABL1/ASS1/BCR FISH: IMPRESSION: ABNORMAL [...] cells with an additional copies of the Blackford chromosome. Gain of a Ph chromosome is one of the common additional cytogenetic abnormalities (ACAs) in CML. Additional chromosomal abnormalities (ACAs) are frequent in CML patients, and are considered a hallmark of multistep disease progression, associated with an adverse prognostic effect during the progressive or advanced stages of CML (Marlee TUCKER et al., 2019. PMID: [id number]). 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 Clinical correlation is recommended. 10/10/2024 2:57 PM EDT [facility] ISCN nuc hilda(ABL1x3,ASS1x2, BCRx3)(ABL1 con [...] analyzed for a complete FISH test, and community representative images were captured and stored using Klinq software ([employer] The normal controls ran in parallel with this specimen gave the expected hybridization results. The normal cutoffs for bone marrow and peripheral blood for marrow have been established in this lab by probe validation. 10/10/2024 2:57 PM EDT [facility] Disclaimer This test was developed and its performance characteristics determined by the [facility] Cytogenetics Laboratory. It has not been [...] perform high complexity clinical laboratory testing. See [id number] for the chromosome analysis results on this specimen. 10/10/2024 2:57 PM EDT [facility] Pathologist Signature Reviewed by: Og Duque 10/10/2024 2:57 PM EDT [facility] Bone Marrow Non-blood Collection / Unknown 10/03/2024 8:48 AM EDT 10/03/2024 10:49 AM EDT us Mk Pastrana MD LAB CYTOGENETICS ORDERABLES F inal Result [facility] [address] [place] [address] * Chromosome Karyotype, Oncology (10/03/2024 8:48 AM EDT) Specimen Type Bone Marrow 10/10/2024 5:48 PM EDT [facility] Clinical Indication Chronic Myelogenous Leukemia 10/10/2024 5:48 PM EDT [facility] Specimen Adequacy Adequate 025 5:48 PM EDT [facility] Chromosome Analysis Result Giemsa-banded metaphase cells from unstimulated bone marrow cultures showed the following chromosome pattern: 46,XX,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 All [...] achieve complete cytogenetic and molecular remission ([facility] et al., 2022. PMID: [id number]). These findings also indicate progression of current condition. Clinical correlation is recommended. Note: Per [employer] (CAP) requirement additional karyotypes were performed and charged due to the presence of clonal abnormalities. See [facility]-[id number] for the FISH analysis results. # cells counted = 20 # cells analyzed = 20 # cells karyotyped = 4 Band resolution: 400-425 10/10/2024 5:48 PM EDT [facility] Pathologist Signature Reviewed by: Og Duque 10/10/2024 5:48 PM EDT [facility] Bone Marrow Non-blood Collection / Unknown 10/03/2024 8:48 AM EDT 10/03/2024 10:49 AM EDT us Mk Pastrana MD LAB CYTOGENETICS ORDERABLES F inal Result [facility] [address] [place] [address] * Myeloid Focused Panel, 50 gene (10/03/2024 8:48 AM EDT) Interpretation The following three (3) genes with persistent variants have been detected in this bone marrow specimen. These gene variants were detected on 06/15/2023. Gene: DNMT3A Mutation: c.1208delA; p.[id number] Allele Frequency (%): 43% Gene: ASXL1 Mutation: c.1934dupG; p.[id number] Allele Frequency (%): 26% ID: [id number] Gene: BCOR Mutation: c.4936delC; p.[id number] 8 Allele Frequency (%): 11% Additional Details on Mutation Identified: Gene Transcript Genome Chrom Coordinate RefVar DNMT3A [id number] Hg19 2 [id number] Jose ASXL1 [id number] Hg19 20 [id number] dupG BCOR [id number] Hg19 X [id number] delC 10/14/2024 5:04 PM EDT [facility] Methodology The following 50 genes were [...] then sequenced on the Illumina NextSeq 2000 ([employer], [place]). A custom bioinformatics pipeline aligns [...] of hematologic malignancies. 10/14/2024 5:04 PM EDT [facility] Disclaimer This test was developed and its performance characteristics determined by the Clinical Molecular and Genomic Pathology Laboratory at the [facility]. It has not been cleared or approved [...] clinical laboratory testing. 10/14/2024 5:04 PM EDT [facility] Pathologist Signature Reviewed by: Og Duque 10/14/2024 5:04 PM EDT [facility] Bone Marrow Specimen from bone marrow obtained by aspiration / Unknown Non-blood Collection / Unknown 10/03/2024 8:48 AM EDT 10/03/2024 10:21 AM EDT us Mk Pastrana MD LAB MOLECULAR DIAGNOSTICS ORD ERABLES Final Result [facility] [address] [place] [address], * Leukemia/Lymphoma - Immunophenotyping by Flow Cytometry (10/03/2024 8:48 AM EDT) Clinical Indication CML 10/03/2024 1:16 PM EDT [facility] Flow Cytometry Interpretation MIXED MARROW ELEMENTS WITHOUT EVIDENCE OF INCREASED BLASTS OR ABNORMAL LYMPHOID POPULATIONS, BONE MARROW ASPIRATE. 10/03/2024 1:16 PM EDT [facility] Comments Specimen viability is 88%. [...] lymphoid populations. Final interpretation requires morphologic correlation ([id number]). The following antibodies were used in this analysis: CD45, CD2, CD3, CD4, CD5, CD7, CD8, CD10, CD13, CD14, CD15, CD16, CD19, CD20, CD33, CD34, CD38, CD56, CD117, HLA-DR, kappa surface light chains, lambda surface light chains 10/03/2024 1:16 PM EDT [facility] Disclaimer This test was developed and its performance characteristics determined by the Immuno-Molecular Pathology Laboratory at the [facility]. It has not been cleared or approved [...] clinical laboratory testing. 10/03/2024 1:16 PM EDT [facility] Pathologist Signature Reviewed by: Kathi Soria MD 10/03/2024 1:16 PM EDT [facility] MRD Indicated Test Not Indicated 1:16 PM EDT [facility] Bone Marrow Specimen from bone marrow obtained by aspiration / Unknown Non-blood Collection / Unknown 10/03/2024 8:48 AM EDT 10/03/2024 10:18 AM EDT us Mk Pastrana MD LAB FLOW CYTOMETRY ORDERABLES Final Result [facility] [address] [place] [address] * Bone marrow exam (10/03/2024 8:48 AM EDT) Case Report Bone Marrow Case: [id number] Authorizing Provider: Mk Pastrana MD Collected: 10/03/2024 0848 Ordering Location: [facility] Hematology/BMT and Received: 10/03/2024 0954 Cellular Therapy Program Pathologist: Kathi Soria MD Specimens: A) - Bone Marrow Aspirate, left B) - Bone Marrow Biopsy, left C) - Peripheral Blood for Bone Marrow 3:18 PM EDT [facility] Final Diagnosis BONE MARROW, LEFT POSTERIOR ILIAC CREST, (PERIPHERAL SMEAR, ASPIRATE SMEARS, AND CORE BIOPSY): -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 - MILD RETICULIN FIBROSIS (PATCHY GRADE 1); NO INCREASE IN BLASTS, SEE COMMENT. 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 In the current specimen, erythroid precursors show megaloblastoid changes. Granulopoiesis is reduced and left-shifted. Megakaryocytes are increased in some of the aspirate spicules and exhibit small hypolobated forms. There is no evidence of increased blasts or increased fibrosis in the current specimen. Clinical correlation is recommended. 3:18 PM EDT [facility] Clinical Information CML (Blackford positive) Now worsening neutropenia and thrombocytopenia 3:18 PM EDT [facility] CBC and Differential PERIPHERAL BLOOD: [...] and show normal morphology. 3:18 PM EDT [facility] Bone Marrow Differential BONE MARROW DIFFERENTIAL: 300 cells Normal Patient Neutrophils 15-50 9 Metamyelocytes 4-19 9 Myelocytes 1-18 13 Promyelocytes 1-8 10 Blasts 0-2 1 Monocytes 0-5 2 Erythroid 16-38 50 Lymphocytes 3-24 2 Eosinophils 0-6 2 Basophils 0-2 1 Plasma cells 0-4 1 Other 3:18 PM EDT [facility] Bone Marrow Aspirate and Biopsy Core [...] Bone trabeculae are unremarkable. 3:18 PM EDT [facility] Special and Immunohistochemical Stains Immunohistochemica l [...] developed by and are performed at the [facility], [address] [place] [address]. All tests reported here, except those addressing [...] negativity on decalcified specimens. 3:18 PM T [facility] Flow Cytometry Interpretation MIXED MARROW ELEMENTS WITHOUT EVIDENCE OF INCREASED BLASTS OR ABNORMAL LYMPHOID POPULATIONS, BONE MARROW ASPIRATE ([id number]). 3:18 PM EDT [facility] CYTOGENETICS/MOLECUL AR INTERPRETATION Correlation with cytogenetics/FISH/ molecular analysis is suggested. 3:18 PM T [facility] Gross Description B. LEFT A single specimen is received in formalin labeled bone marrow biopsy left posterior iliac crest and consists of 2 piece(s) of red/white tissue measuring 0.4/0.6 cm in length 0.2 cm in diameter. The specimen is submitted in to Histology for decalcification and routine processing. Cold Time: 1m 3:18 PM T [facility] Note: A resident was involved in the service. I attest I examined the relevant preparations for the specimens and confirmed the diagnosis or interpretation. 3:18 PM T [facility] Bone Marrow Peripheral blood specimen [...] MD LAB PATHOLOGY ORDERABLES Nani luis Result [facility] [address] [place] [address] * (ABNORMAL) CBC and Differential (10/03/2024 8:18 AM EDT) WBC Count 1.93(L) 3.70 - 10.30 10*3/uL LAB HEMATOLOGY METHOD 10/03/2024 8:44 AM EDT [facility] RBC Count 3.42(L) 3.90 - 5.20 10*6/uL LAB HEMATOLOGY METHOD 10/03/2024 8:44 AM EDT [facility] HGB 11.2 11.2 - 15.7 g/dL LAB HEMATOLOGY METHOD 10/03/2024 8:44 AM EDT [facility] HCT 34.0 34.0 - 45.0 % LAB HEMATOLOGY METHOD 10/03/2024 8:44 AM EDT [facility] Platelet Count 94(L) 155 - 369 10*3/uL LAB HEMATOLOGY METHOD 10/03/2024 8:44 AM EDT [facility] MCV 99(H) 79 - 98 fL LAB HEMATOLOGY METHOD 10/03/2024 8:44 AM EDT [facility] MCH 32.7(H) 26.0 - 32.0 pg LAB HEMATOLOGY METHOD 10/03/2024 8:44 AM EDT [facility] MCHC 32.9 30.7 - 35.5 g/dL LAB HEMATOLOGY METHOD 10/03/2024 8:44 AM EDT [facility] RDW 17.4(H) 11.5 - 14.5 % LAB HEMATOLOGY METHOD 10/03/2024 8:44 AM EDT [facility] MPV 10.3 8.8 - 12.5 fL LAB HEMATOLOGY METHOD 10/03/2024 8:44 AM EDT [facility] nRBC 1.0(H) <=0.0 per 100 WBCs LAB HEMATOLOGY METHOD 10/03/2024 8:44 AM EDT [facility] Differential Type Automated LAB HEMATOLOGY METHOD 10/03/2024 8:44 AM EDT [facility] Neutrophils % 25 % LAB HEMATOLOGY METHOD 10/03/2024 8:44 AM EDT HEALTHCARE LAB Lymphocytes % 66 % LAB HEMATOLOGY METHOD 10/03/2024 8:44 AM EDT [facility] Monocytes % 6 % LAB HEMATOLOGY METHOD 10/03/2024 8:44 AM EDT [facility] Eosinophils % 1 % LAB HEMATOLOGY METHOD 10/03/2024 8:44 AM EDT [facility] Basophils % 1 % LAB HEMATOLOGY METHOD 10/03/2024 8:44 AM EDT [facility] Immature Granulocytes % 1 % LAB HEMATOLOGY METHOD 10/03/2024 8:44 AM EDT [facility] Neutrophils Absolute 0.48(LL) 1.60 - 6.10 10*3/uL LAB HEMATOLOGY METHOD 10/03/2024 8:44 AM EDT [facility] Lymphocytes Absolute 1.28 1.20 - 3.90 10*3/uL LAB HEMATOLOGY METHOD 10/03/2024 8:44 AM EDT [facility] Monocytes Absolute 0.11(L) 0.30 - 0.90 10*3/uL LAB HEMATOLOGY METHOD 10/03/2024 8:44 AM EDT [facility] Eosinophils Absolute 0.02 0.00 - 0.50 10*3/uL LAB HEMATOLOGY METHOD 10/03/2024 8:44 AM EDT [facility] Basophils Absolute 0.02 0.00 - 0.10 10*3/uL LAB HEMATOLOGY METHOD 10/03/2024 8:44 AM EDT [facility] Immature Granulocytes Absolute 0.02 0.00 - 0.06 10*3/uL LAB HEMATOLOGY METHOD 10/03/2024 8:44 AM EDT [facility] Blood Venous blood specimen / Unknown Venipuncture / Unknown 10/03/2024 8:18 AM EDT 10/03/2024 8:34 AM EDT [facility] HEALTHCARE LAB - 10/03/2024 8:44 AM EDT Therapeutic decision making should be based on absolute values, rather than percentages. us Bhavana Bella APRN LAB BLOOD ORDERABLES Final Result [facility] [address] [place] [address] documented in this encounter Visit Diagnoses Diagnosis [...] documented as of this encounter Care Teams Lead Vulcanizing Operator Relationship Specialty Start Date End Date Willi Frost MD [address] [place] [address] [address] [place] [address] PCP - General 06/11/24 documented as of this encounter
--- OUTSIDE RECORDS SUMMARY | 2024-10-08 09:30 | XMS_ITS | Encounter Summary ---
Author Organization [facility] Address [address] [place] [address] Care Team Providers Care Finance Admin Name Role Phone Willi Frost MD Primary Care Provider Encounter Details Date Type Department Care Team ([facility] Contact Info) Description 10/08/2024 9:30 AM EDT Office Visit [facility] Hematology/BMT and Cellular Therapy Program [address] [phone] Social History Tobacco Use Types Packs/Day Years [...] Upcoming Encounters Date Type Department Care Team ([facility] Contact Info) Description 10/30/2024 8:00 AM EDT Clinical Support [facility]ematology/BMT and Cellular Therapy Program [address] [phone] 10/30/2024 8:30 AM EDT Office Visit [facility]ology/BMT and Cellular Therapy Program [address] [phone] Radha Morelos, HAIR DRESSER [address] [facility] [address] [place] [phone] 11/13/2024 1:00 PM EDT Office Visit [facility] [address] [place] [address] Verena Montes PA [address] [facility] [address] [place] [address] 11/27/2024 1:30 PM EDT Clinical Support [facility]ology/BMT and Cellular Therapy Program [address] [phone] 11/27/2024 2:00 PM EDT Office Visit [facility]ology/BMT and Cellular Therapy Program [address] [phone] Mk Pastrana MD [address] [facility] [address] [place] [phone] documented as of this encounter Visit Diagnoses Not on filedocumented in this encounter Additional Health Concerns Assessment Noted Time A Body Mass Index follow-up plan has been documented for the patient 09/11/2024 6:12 PM EDT documented as of this encounter Care Teams Finance Admin Relationship Specialty Start Date End Date Willi Frost MD [facility] [address] [place] [address] PCP - General 06/11/24 documented as of this encounter
--- OUTSIDE RECORDS SUMMARY | 2024-10-08 10:00 | XMS_ITS | Encounter Summary ---
Author Organization [facility] Address [address] [place] [address] Care Team Providers Care Rn Clinical Name Role Phone Willi Frost MD Primary Care Provider [phone] Reason for Referral * Consultation (Urgent) - Authorized Specialty Diagnoses / Procedures Referred By Contac t Referred To Contact Infectious Diseases Diagnoses Acquired syphilis Mk Pastrana MD [facility] [address] [address] Phone: tel: fax: Referral ID Status Reason Start Date Expiration Date Visits Requested Visits Authorized [id number] Authorized Specialty Services Required 10/08/2024 04/09/2026 1 1 Encounter Details Date Type Department Care Team (Latest Contact Info) Description 10/08/2024 10:00 AM EDT Office Visit [facility] Hematology/BMT and Cellular Therapy Program [address] [place] [address] Mk Pastrana MD [facility] [address] [phone] CML (chronic myelocytic leukemia) (CMS/HCC) (Primary Dx); Encounter for antineoplastic chemotherapy; Acquired syphilis Social History Tobacco Use Types Packs/Day Years [...] Sign Reading Time Taken Comments Blood Pressure 141/88 10/08/2024 9:58 AM EDT Pulse 72 10/08/2024 9:58 AM EDT Temperature 36.3 C (97.3 F) 10/08/2024 9:58 AM EDT Respiratory Rate 14 10/08/2024 9:58 AM EDT Oxygen Saturation 99% 10/08/2024 9:58 AM EDT Inhaled Oxygen Concentration - - Weight 58.1 kg (128 lb 1.4 oz) 10/08/2024 9:58 A M EDT Height 165.1 cm (5' 5 ) 10/08/2024 9:58 AM EDT Body Mass Index 21.31 10/08/2024 9:58 AM EDT documented in this encounter Miscellaneous Notes * Progress Notes - Mk Pastrana MD - 10/08/2024 10:00 AM EDT Patient Information Patient Name: Amita Ortiz Date of : 1970 REFERRING PHYSICIAN: Mk Pastrana MD [address] [place] [phone] Encounter Date: 10/08/2024 Patient Care Team: Willi Frost MD as PCP - General No chief complaint on file. Hematologic History Cancer Staging No matching staging information was found for the patient. Amita Ortiz is a 54 y.o. who presents today for follow-up for the treatment of CML. Current Treatment Regimen: Asciminib 40 mg/day History of Present Illness: 06/09/23 - Peripheral blood flow cytometry performed in [place] for leukocytosis revealed 3% myeloblasts with maturing [...] lesions 06/15/23 - Bone marrow biopsy in [place] was consistent with chronic myeloid leukemia with [...] mg p.o. nightly. 10/2023 - Relocated to [facility] and established care with Fredrick Bateman in [place], [place], for hematology/oncology follow-up. By that point, the patient had been on nilotinib 300 mg p.o. twice daily for several weeks. CBC with differential was normal. BCR-ABL testing on peripheral bloodrevealed PCR positivity of 26.98% (b2a2 transcript), 17.66% (B3 A2 transcript, [id number]), and 0.0403% (ela2, [id number] transcript). The recommendation was to continue current therapy. 11/22/23 - Transferred care to [facility] hematology/oncology. The recommendation was to continue [...] Social History Past Medical History: Diagnosis Date Leukemia (CMS/HCC) 06/24/23 Past Surgical History: Procedure Laterality Date PROSTHODONTIC PROCEDURE 2020 Mom - ovarian cancer (in 50s) Grandfather - brain (in 70s) Social History Tobacco Use Smoking status: Former Types: Cigarettes Smokeless tobacco: Never Vaping Use Vaping status: Every Day Substances: THC Allergies and Adverse Drug Reactions Patient has no known allergies. Medications Current Outpatient Medications: Asciminib HCl 40 MG tablet, Take 40 mg by mouth daily. (Patient not taking: Reported on 10/08/2024), Disp: 60 tablet, Rfl: 2 cetirizine (ZyrTEC) 10 MG tablet, Take 1 tablet by mouth daily. (Patient not taking: Reported on 10/08/2024), Disp: 7 tablet, Rfl: 0 Subjective Interval History: She is overall feeling well. She is not currently taking asciminib. Denies fever or infection, shortness of breath, n/v/d. She Review of Systems: 14- point ROS is reviewed and negative except in HPI. Objective Performance Status ECOG 1 KPS 90 Visit Vitals BP (!) 141/88 (BP Location: Right arm, Patient Position: Sitting, BP Cuff Size: Adult) Pulse 72 Temp 36.3 ??C (97.3 ??F) (Temporal) Resp 14 BSA: Estimated body surface area is 1.63 meters squared as calculated from the following: Height as of this encounter: 1.651 m (5' 5 ). Weight as of this encounter: 58.1 kg (128 lb 1.4 oz). EXAM Physical Examination: General: appears stated [...] personally Lab Results Component Value Date WBC 2.43 (L) 10/08/2024 RBC 3.97 10/08/2024 HGB 12.9 10/08/2024 HCT 39.2 10/08/2024 MCV 99 (H) 10/08/2024 MCHC 32.9 10/08/2024 RDW 17.5 (H) 10/08/2024 PLT 124 (L) 10/08/2024 MPV 10.7 10/08/2024 Lab Results Component Value Date BUN 10 10/08/2024 CL 107 10/08/2024 NA 142 10/08/2024 K 4.3 10/08/2024 TP 7.5 10/08/2024 AST 22 10/08/2024 ALT 21 10/08/2024 I visualized the recent imaging and discussed [...] accelerated chronic myeloidleukemia (CML), initially diagnosed in [place] on June 15, 2023, following evaluation for [...] the evening by mid-August. 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 No mutations were found at common [...] levels. Her BCR-ABL1 PCR on 08/20/2024 was 31.595%, and 20.48% on 09/10/24 Asciminib continues to be on hold due to thrombocytopnia and neutropenia Plan: - Discontinue asciminib due to thrombocytopnia and neutropenia - Start ponatinib 45 mg daily. I discussed potential side effects with the patient, including vascular events (such as arterial thrombosis, hypertension, and venous thromboembolism), pancreatitis, hepatotoxicity, myelosuppression, and rash. We also reviewed the risks of elevated lipase/amylase, gastrointestinal symptoms (e.g., abdominal pain, nausea, diarrhea), and fatigue. Given the risk of serious vascular events, I emphasized the importance of aggressive management of cardiovascular risk factors, including blood pressure, lipids, and glucose control. Routine monitoring will include CBC, liver function tests, and blood pressure. The plan is to reassess clinical response and tolerance, andto consider dose reduction to 15-30 mg daily once an adequate molecular response is achieved, in line with current treatment guidelines. - Continue donor search and transplant workups. Allogenic transplant discussion: Dr. Pastrana [...] edema. I also discussed the risk of upsig-vipgfe-yxdr disease (acute or chronic), which may require long-term immunosuppressive therapy and significantly increase therisk of infection. They understand that full recovery after transplantation may take approximately 6-12 months following hospital discharge. He emphasized the need for frequent outpatient clinic visits during the posttransplant period, during which time there will be heightened infection risk, and strict activity and dietary restrictions will be recommended. Original donor we selected was deemed ineligible. We will continue donor search. Thrombocytopenia and neutropenia related to chemotherapy Monitor CBC weekly Give 1 unit PRBCs for hgb <7 and 1 unit plt for plt <10 History of HCV. PCR is negative. Syphilis antibody positivity. Refer to ID for pre-transplant evaluation and management. Tobacco use. We counseled her on smoking [...] is normal in size measuring 10.5 cm. Dental issues -s/p full tooth extraction on 09/11/2024 RTC in 3 weeks Continue transplant workups Mk Pastrana M.D. [facility] Division of Hematology/BMT [facility] * Progress Notes - Jojo Iyer, PharmD - 10/08/2024 10:00 AM EDT Pharmacy Hematology/Oncology Patient Education Note I counseled the patient on their chemotherapy regimen, which was scheduled to start ÁNGELA. The chemotherapy agents that this patient is scheduled to receive include: ponatinib. I provided the patient with a written explanation of the drugs contained in the regimen and their expected side effects, toxicities, and adverse reactions. I provided verbal explanation of the same material and provided methods for self-monitoring. I answered all questions that the patient and caregiver had. The patient and caregiver demonstrated understanding of the material, and wished to proceed with the treatment. * Progress Notes - Jojo Iyer PharmNura - 10/08/2024 10:00 AM EDT Pharmacy Hematology/Oncology Treatment Note Amita Ortiz is a 54 y.o. female with Cancer Staging No matching staging information was found for the patient. CML Study Patient: no Treatment Plan reviewed for ponatinib [x] Follow-Up Clinical Review for Continuous Oral [...] 150 mgQPM. She transferred her care to [place] in October 2023 and was found have [...] hold asciminib therapy and monitor labs weekly. 10/08/24: Patient continues to experience cytopenias requiring asciminib therapy to be held. Will transition to ponatinib therapy while undergoing allogeneic HSCT work-up. Today's Wt: Wt Readings from Last 1 Encounters: 10/08/24 58.1 kg (128 lb 1.4 oz) Dosing Wt: n/a Dosing Ht: n/a DosingBSA: n/a Recent Labs: Lab Results Component Value Date WBC 2.43 (L) 10/08/2024 HGB 12.9 10/08/2024 HCT 39.2 10/08/2024 MCV 99 (H) 10/08/2024 PLT 124 (L) 10/08/2024 Lab Results Component Value Date GLUCOSE 90 10/08/2024 CALCIUM 9.5 10/08/2024 NA 142 10/08/2024 K 4.3 10/08/2024 CO2 22 10/08/2024 CL 107 10/08/2024 BUN 10 10/08/2024 CREATININE 0.65 10/08/2024 Lab Results Component Value Date ALT 21 10/08/2024 AST 22 10/08/2024 ALKPHOS 104 10/08/2024 BILITOT 1.0 10/08/2024 Lab Results Component Value Date NEUTROABS 0.92 (LL) 10/08/2024 Lab Results Component Value Date MG 2.1 09/10/2024 Lab Results Component Value Date TSH 1.01 09/25/2024 No results found for: URINEPRO Vitals: Visit Vitals BP (!) 141/88 (BP Location: Right arm, Patient Position: Sitting, BP Cuff Size: Adult) Pulse 72 Temp 36.3 ??C (97.3 ??F) (Temporal) Resp 14 Other Relevant Monitorin04/30/24 Hep C Ab (+) 04/30/24 Hep C PCR (pending) 04/30/24 Qtc: 450 ms BCR-ABL: 05/07/24 13:26 07/24/24 10:56 08/20/24 09:00 09/10/24 11:12 BCR ABL1 Major (p210) Result Detected ! High Positive Detected ! Detected ! BCR ABL1 International Scale (Percent) 45.9300 See Note 31.8694 20.4857 Treatment/Therapy Plan: Ponatinib 45 mg PO QD [x] No dose adjustments Current Treatment Plan History: Ponatinib initiated 10/2024 Prior Treatment History: Hydrea cytoreduction (06/2023) Dasatinib (06/2023) - discontinued d/t rash Nilotinib 06/2023 - 04/2024 Asciminib 80 mg (04/30/2024 - 06/11/24) Asciminib 40 mg (07/15/24 - 10/02 Plan: Patient will return to clinic in 3 weeks. Will follow-up at that time. Pharmacist Attestation: Jojo Iyer Yoli 10/08/2024 11:57 AM documented in this encounter Plan of Treatment Upcoming Encounters Date Type Department Care Team ([facility] st Contact Info) Description 10/30/2024 8:00 AM EDT Clinical Support [facility] Hematology/BMT and Cellular Therapy Program [address] [place] [phone] 10/30/2024 8:30 AM EDT Office Visit [facility] Hematology/BMT and Cellular Therapy Program [address] [place] [phone] Radha Morelos, GIS TECHNICIAN [facility] [address] [place] [phone] 11/13/2024 1:00 PM EDT Office Visit [id number] [place] [phone] [place] [address] [place] [phone] 11/27/2024 1:30 PM EDT Clinical Support [facility] Hematology/BMT and Cellular Therapy Program [address] [place] [phone] 11/27/2024 2:00 PM EDT Office Visit [facility] Hematology/BMT and Cellular Therapy Program [address] [phone] Mk Pastrana MD [address] [facility] [address] [place] [phone] Scheduled Referrals Name Type Priority Associated Diagnoses Order Schedule Ambulatory referral to Infectious Disease Outpatient Referral Routine Acquired syphilis Expected: 10/08/2024 (Approximate), Expires: 04/11/2026 documented as of this encounter Procedures Procedure Name Priority Date/Time Associated Diagnosis Comments RPR SCREENING WITH RFLEX TO TITER (REFLEX ONLY) Routine 10/08/2024 9:39 AM EDT CML (chronic myelocytic leukemia) (CMS/HCC) TREPONEMA PALLIDUM (SYPHILIS) ANTIBODIES WITH REFLEX TO RPR AND RPR TITER (THOSE WITH NO KNOWN SYPHILIS) Routine 10/08/2024 9:39 AM EDT CML (chronic myelocytic leukemia) (CMS/HCC) RPR TITER Routine 10/08/2024 9:39 AM EDT CML (chronic myelocytic leukemia) (CMS/HCC) CBC WITH AUTO DIFFERENTIAL Routine 10/08/2024 9:39 AM EDT CML (chronic myelocytic leukemia) (CMS/HCC) LIPASE, PLASMA Routine 10/08/2024 9:39 AM EDT CML (chronic myelocytic leukemia) (CMS/HCC) LACTATE DEHYDROGENASE, PLASMA Routine 10/08/2024 9:39 AM EDT CML (chronic myelocytic leukemia) (CMS/HCC) AMYLASE, PLASMA Routine 10/08/2024 9:39 AM EDT CML (chronic myelocytic leukemia) (CMS/HCC) COMPREHENSIVE METABOLIC PANEL, PLASMA Routine 10/08/2024 9:39 AM EDT CML (chronic myelocytic leukemia) (CMS/HCC) documented in this encounter Results * (ABNORMAL) RPR Titer (10/08/2024 9:39 AM EDT) RPR Titer Pos 1:1(A) <1:1 10/09/2024 2:18 AM EDT [facility] Blood Venous blood specimen / Unknown Venipuncture / Unknown 10/08/2024 9:39 AM EDT 10/08/2024 9:57 AM EDT Mk Pastrana MD LAB BLOOD ORDERABLES Final Re sult Performing Organization Address City/[facility]/ZIP Co de Phone Number [facility] [address] [place] [address] * (ABNORMAL) RPR Screening with Rflex to Titer (10/08/2024 9:39 AM EDT) Pathologist [facility] Rapid Plasma Reagin Reactive( A) Non Reactive 10/09/2024 1:33 AM EDT [facility] Blood Venous blood specimen / Unknown Venipuncture / Unknown 10/08/2024 9:39 AM EDT 10/08/2024 9:57 AM EDT Mk Pastrana MD LAB BLOOD ORDERABLES Final Re sult Performing Organization Address [facility] Co de Phone Number [facility] [address] [place] [address] * (ABNORMAL) Treponema Pallidum (Syphilis) Antibodies with Reflex to RPR and RPR Titer (Those with NOknown Syphilis) (10/08/2024 9:39 AM EDT) [facility] Syphilis Antibody (IgG+IgM) Reactive( A) Nonreactive 10/08/2024 12:31 PM EDT [facility] Comment:Result suggests infe ction with Treponema pallidum at some point in the past but cannot distinguish between current and past infection. Rapid Plasma Reagin (RPR) has been ordered to help distinguish between these two scenarios. Please correlate with RPR result. Blood Venous blood specimen / Unknown Venipuncture / Unknown 10/08/2024 9:39 AM EDT 10/08/2024 9:57 AM EDT Mk Pastrana MD LAB BLOOD ORDERABLES Final Re sult Performing Organization Address [facility]/ZIP Co de Phone Number [facility] [address] [place] [address] * Lactate Dehydrogenase, Plasma (10/08/2024 9:39 AM EDT) LDH, Plasma 238 116 - 250 U/L 10/08/2024 10:32 AM EDT [facility] Comment:Hemolyzed, result ma y be falsely increased. Blood Venous blood specimen / Unknown Venipuncture / Unknown 10/08/2024 9:39 AM EDT 10/08/2024 9:57 AM EDT Mk Pastrana MD LAB BLOOD ORDERABLES Final Re sult Performing Organization Address City/[facility]/ZIP Co de Phone Number [facility] [address] [place] [address] * Lipase, Plasma (10/08/2024 9:39 AM EDT) Pathologist [facility] Lipase, Plasma 31 19 - 63 U/L 10/08/2024 10:32 AM EDT [facility] Blood Venous blood specimen / Unknown Venipuncture / Unknown 10/08/2024 9:39 AM EDT 10/08/2024 9:57 AM EDT Mk Pastrana MD LAB BLOOD ORDERABLES Final Re sult Performing Organization Address [facility] Co de Phone Number [facility] [address] [place] [address] * Amylase, Plasma (10/08/2024 9:39 AM EDT) Pathologist [facility] Amylase 43 27 - 114 U/L 10/08/2024 10:32 AM EDT [facility] Blood Venous blood specimen / Unknown Venipuncture / Unknown 10/08/2024 9:39 AM EDT 10/08/2024 9:57 AM EDT Mk Pastrana MD LAB BLOOD ORDERABLES Final Re sult Performing Organization Address [facility] Co de Phone Number [facility] [address] [place] [address] * Comprehensive Metabolic Panel, Plasma (10/08/2024 9:39 AM EDT) [facility] Glucose, Plasma 90 74 - 99 mg/dL 10/08/2024 10:32 AM EDT [facility] BUN, Plasma 10 7 - 21 mg/dL 10/08/2024 10:32 AM EDT [facility] Creatinine, Plasma 0.65 0.60 - 1.10 mg/dL 10/08/2024 10:32 AM EDT [facility] BUN/Creatinine Ratio 15 10/08/2024 10:32 AM EDT [facility] Sodium, Plasma 142 136 - 145 mmol/L 10/08/2024 10:32 AM EDT [facility] Potassium, Plasma 4.3 3.6 - 4.9 mmol/L 10/08/2024 10:32 AM EDT [facility] Chloride, Plasma 107 97 - 107 mmol/L 10/08/2024 10:32 AM EDT [facility] CO2, Plasma 22 22 - 29 mmol/L 10/08/2024 10:32 AM EDT [facility] Anion Gap 13 6 - 16 mmol/L 10/08/2024 10:32 AM EDT [facility] Total Calcium, Plasma 9.5 8.9 - 10.2 mg/dL 10/08/2024 10:32 AM EDT [facility] Total Protein 7.5 6.3 - 7.9 g/dL 10/08/2024 10:32 AM EDT [facility] Albumin, Plasma 4.8 3.5 - 5.2 g/dL 10/08/2024 10:32 AM EDT [facility] AST, Plasma 22 10 - 35 U/L 10/08/2024 10:32 AM EDT [facility] ALT, Plasma 21 10 - 35 U/L 10/08/2024 10:32 AM EDT [facility] Alkaline Phosphatase, Plasma 104 35 - 104 U/L 10/08/2024 10:32 AM EDT [facility] Total Bilirubin, Plasma 1.0 0.2 - 1.1 mg/dL 10/08/2024 10:32 AM EDT [facility] eGFRcr 106.1 mL/min/1.7 3m*2 10/08/2024 10:32 AM EDT [facility] Comment:Reported eGFRcr in m L/min/1.73m2 is based the CKD-EPI 2020 equation that does not use a race coefficient. Blood Venous blood specimen / Unknown Venipuncture / Unknown 10/08/2024 9:39 AM EDT 10/08/2024 9:57 AM EDT us Mk Pastrana MD LAB BLOOD ORDERABLES Final Re sult [facility] [address] [place] [address] * (ABNORMAL) CBC and Differential (10/08/2024 9:39 AM EDT) WBC Count 2.43(L) 3.70 - 10.30 10*3/uL LAB HEMATOLOGY METHOD 10/08/2024 10:04 AM EDT [facility] RBC Count 3.97 3.90 - 5.20 10*6/uL LAB HEMATOLOGY METHOD 10/08/2024 10:04 AM EDT [facility] HGB 12.9 11.2 - 15.7 g/dL LAB HEMATOLOGY METHOD 10/08/2024 10:04 AM EDT [facility] HCT 39.2 34.0 - 45.0 % LAB HEMATOLOGY METHOD 10/08/2024 10:04 AM EDT [facility] Platelet Count 124(L) 155 - 369 10*3/uL LAB HEMATOLOGY METHOD 10/08/2024 10:04 AM EDT [facility] MCV 99(H) 79 - 98 fL LAB HEMATOLOGY METHOD 10/08/2024 10:04 AM EDT [facility] MCH 32.5(H) 26.0 - 32.0 pg LAB HEMATOLOGY METHOD 10/08/2024 10:04 AM EDT [facility] MCHC 32.9 30.7 - 35.5 g/dL LAB HEMATOLOGY METHOD 10/08/2024 10:04 AM EDT [facility] RDW 17.5(H) 11.5 - 14.5 % LAB HEMATOLOGY METHOD 10/08/2024 10:04 AM EDT [facility] MPV 10.7 8.8 - 12.5 fL LAB HEMATOLOGY METHOD 10/08/2024 10:04 AM EDT [facility] nRBC 0.0 <=0.0 per 100 WBCs LAB HEMATOLOGY METHOD 10/08/2024 10:04 AM EDT [facility] Differential Type Automated LAB HEMATOLOGY METHOD 10/08/2024 10:04 AM EDT [facility] Neutrophils % 38 % LAB HEMATOLOGY METHOD 10/08/2024 10:04 AM EDT [facility] Lymphocytes % 51 % LAB HEMATOLOGY METHOD 10/08/2024 10:04 AM EDT [facility] Monocytes % 8 % LAB HEMATOLOGY METHOD 10/08/2024 10:04 AM EDT [facility] Eosinophils % 1 % LAB HEMATOLOGY METHOD 10/08/2024 10:04 AM EDT [facility] Basophils % 1 % LAB HEMATOLOGY METHOD 10/08/2024 10:04 AM EDT [facility] Immature Granulocytes % 1 % LAB HEMATOLOGY METHOD 10/08/2024 10:04 AM EDT [facility] Neutrophils Absolute 0.92(LL) 1.60 - 6.10 10*3/uL LAB HEMATOLOGY METHOD 10/08/2024 10:04 AM EDT [facility] Lymphocytes Absolute 1.25 1.20 - 3.90 10*3/uL LAB HEMATOLOGY METHOD 10/08/2024 10:04 AM EDT [facility] Monocytes Absolute 0.19(L) 0.30 - 0.90 10*3/uL LAB HEMATOLOGY METHOD 10/08/2024 10:04 AM EDT [facility] Eosinophils Absolute 0.02 0.00 - 0.50 10*3/uL LAB HEMATOLOGY METHOD 10/08/2024 10:04 AM EDT [facility] Basophils Absolute 0.03 0.00 - 0.10 10*3/uL LAB HEMATOLOGY METHOD 10/08/2024 10:04 AM EDT [facility] Immature Granulocytes Absolute 0.02 0.00 - 0.06 10*3/uL LAB HEMATOLOGY METHOD 10/08/2024 10:04 AM EDT [facility] Blood Venous blood specimen / Unknown Venipuncture / Unknown 10/08/2024 9:39 AM EDT 10/08/2024 9:58 AM EDT [facility] - 10/08/2024 10:04 AM EDT Therapeutic decision making should be based on absolute values, rather than percentages. us Mk Pastrana MD LAB BLOOD ORDERABLES Final Re sult [facility] [address] [place] [address] documented in this encounter Visit Diagnoses Diagnosis CML (chronic myelocytic leukemia) (CMS/HCC)- Primary Chronic myeloid leukemia, without mention of having achieved remission Encounter for antineoplastic chemotherapy Acquired syphilis Unspecified syphilis documented in this encounter Additional Health Concerns Assessment Noted Time A Body Mass Index follow-up plan has been documented for the patient 09/11/2024 6:12 PM EDT documented as of this encounter Care Teams Rn Clinical Relationship Specialty Start Date End Date Willi Frost MD [address] [place] [id number] PCP - General 06/11/24 documented as of this encounter
--- OUTSIDE RECORDS SUMMARY | 2024-10-15 12:36 | XMS_ITS | Encounter Summary ---
Author Organization [facility] Address [address] [place] [address] Care Team Providers Care Skidway Man Name Role Phone Willi Frost MD Primary Care Provider [phone] Reason for Referral * Imaging (Routine) - Authorized Specialty Diagnoses / Procedures Referred By Contac t Referred To Contact Radiology Diagnoses CML (chronic myelocytic leukemia) (CMS/HCC) Procedures IR Tunneled Central Venous Catheter Placement 5+ Years Consult to Interventional Radiology Mk Pastrana MD 800 [facility] [address] [place] [address] Phone: tel: fax: Referral ID Status Reason Start Date Expiration Date V isits Requested Visits Authorized [id number] Authorized 09/17/2024 03/19/2026 1 1 Encounter Details Date Type Department Care Team (Late st Contact Info) Description 09/17/2024 Orders Only [facility] Hematology/BMT and Cellular Therapy Program 750 [facility] [place] [address] Leo De Souza, RN [facility] HEMATOLOGY PROGRAM CLINIC CML (chronic myelocytic leukemia) [...] Hematology/BMT and Cellular Therapy Program [address] [phone] 10/30/2024 8:30 AM EDT Office Visit [facility] Hematology/BMT and Cellular Therapy Program [address] [phone] Radha Morelos, MARCY 800 [facility] [address] [phone] 11/13/2024 1:00 PM EDT Office Visit [address] [phone] [place] [address] [place] [phone] 11/27/2024 1:30 PM EDT Clinical Support [facility] Hematology/BMT and Cellular Therapy Program [address] [phone] 11/27/2024 2:00 PM EDT Office Visit [facility] Hematology/BMT and Cellular Therapy Program [address] [phone] Mk Pastrana MD 800 [facility] [address] [place] [phone] Scheduled Orders Name Type Priority Associated Diagnoses [...] documented as of this encounter Care Teams Skidway Man Relationship Specialty Start Date End Date Willi Frost MD [address] [place] [address] PCP - General 06/11/24 documented as of this encounter
--- OUTSIDE RECORDS SUMMARY | 2024-10-15 12:36 | XMS_ITS ---
Author Organization [facility] Address [address] [place] [address] Care Team Providers Care Manager Internet Name Role Phone Willi Frost MD Primary Care Provider Active Problems Problem Noted Date Diagnosed Date Second hand smoke exposure 10/08/2024 CML (chronic myelocytic leukemia) 09/10/2024 Current Treatment and Therapy Plans HEM/BMT Blood Administration for Outpatient* Plan Start Date:09/10/2024 Plan Provider:Bhavana Bella APRN Linked Problems CML (chronic myelocytic leuk emia) ([facility]) Treatment Medications No medications scheduled. Past Treatment and Therapy Plans No past plan information found. 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
--- OUTSIDE RECORDS SUMMARY | 2024-10-15 12:36 | XMS_ITS | Encounter Summary ---
Author Organization [facility] Address [address] [place] [address] Care Team Providers Care Packing Floor Worker Name Role Phone Willi Frost MD Primary Care Provider Encounter Details Date Type Department Care Team (Latest Contact Info) Description 10/07/2024 Travel Social History Tobacco Use Types Packs/Day [...] CC Hematology/BMT and Cellular Therapy Program [address] [phone] 10/30/2024 8:30 AM EDT Office Visit [facility] Hematology/BMT and Cellular Therapy Program [address] [phone] Radha Morelos, HISTORICAL SITE GUIDE 800 [facility] [address] [place] [phone] 11/13/2024 1:00 PM EDT Office Visit [facility] [address] [place] [address] Verean Montes PA 3101 [facility] [place] [address] 11/27/2024 1:30 PM EDT Clinical Support [facility] Hematology/BMT and Cellular Therapy Program [address] [phone] 11/27/2024 2:00 PM EDT Office Visit [facility] Hematology/BMT and Cellular Therapy Program [address] [phone] Mk Pastrana MD 800 [facility] [address] [place] [phone] documented as of this encounter Visit Diagnoses Not on filedocumented in this encounter Additional Health Concerns Assessment Noted Time A Body Mass Index follow-up plan has been documented for the patient 09/11/2024 6:12 PM EDT documented as of this encounter Care Teams Packing Floor Worker Relationship Specialty Start Date End Date Willi Frost MD [address] [place] [address] [address] [place] [address] PCP - General 06/11/24 documented as of this encounter
--- OUTSIDE RECORDS SUMMARY | 2024-10-15 12:36 | XMS_ITS | Encounter Summary ---
Author Organization [facility] Address [address] [place] [address] Care Team Providers Care Barbecue Cook Name Role Phone Willi Frost MD Primary Care Provider [phone] Encounter Details Date Type Department Care Team ([facility] Contact Info) Description 10/08/2024 Telephone PAV A Interventional Radiology [address] [place] [phone] Radha Mary, RN CH-VASCULAR & INTERVENTIONAL RADIOLOGY Social History Tobacco Use Types Packs/Day Years [...] Team ([facility] Contact Info) Description 10/30/2024 8:00 AM EDT Clinical Support [facility] Hematology/BMT and Cellular Therapy Program [address] [place] [phone] 10/30/2024 8:30 AM EDT Office Visit [facility] Hematology/BMT and Cellular Therapy Program [address] [place] [phone] Radha Morelos, SOLAR SYSTEM DESIGNER 800 [facility] [address] [place] [phone] 11/13/2024 1:00 PM EDT Office Visit [facility] [address] [place] [phone] Verena Montes PA 3101 [facility] [address] [place] [phone] 11/27/2024 1:30 PM EDT Clinical Support [facility] Hematology/BMT and Cellular Therapy Program [address] [phone] 11/27/2024 2:00 PM EDT Office Visit [facility] Hematology/BMT and Cellular Therapy Program [address] [phone] Mk Pastrana MD 800 [facility] [address] [place] [phone] documented as of this encounter Visit Diagnoses Not on filedocumented in this encounter Additional Health Concerns Assessment Noted Time A Body Mass Index follow-up plan has been documented for the patient 09/11/2024 6:12 PM EDT documented as of this encounter Care Teams Barbecue Cook Relationship Specialty Start Date End Date Willi Frost MD [facility] [address] [place] [address] PCP - General 06/11/24 documented as of this encounter
--- OUTSIDE RECORDS SUMMARY | 2024-10-15 12:36 | XMS_ITS | Encounter Summary ---
Author Organization [facility] Address [address] [place] [address] Care Team Providers Care Informatica Mdm Developer Name Role Phone Willi Frost MD Primary Care Provider Encounter Details Date Type Department Care Team (Latest Contact Info) Description 10/03/2024 Travel Social History Tobacco Use Types Packs/Day [...] Hematology/BMT and Cellular Therapy Program [address] [phone] 10/30/2024 8:30 AM EDT Office Visit [facility] Hematology/BMT and Cellular Therapy Program [address] [phone] Radha Morelos, ACCREDITED PHARMACY TECHNICIAN 800 [facility] [address] [place] [phone] 11/13/2024 1:00 PM EDT Office Visit [facility] [address] [place] [address] Verena Montes PA 3101 [facility] [address] [place] [address] 11/27/2024 1:30 PM EDT Clinical Support [facility] Hematology/BMT and Cellular Therapy Program [address] [phone] 11/27/2024 2:00 PM EDT Office Visit [facility] Hematology/BMT and Cellular Therapy Program [address] [phone] Mk Pastrana MD 800 [facility] [address] [place] [phone] documented as of this encounter Visit Diagnoses Not on filedocumented in this encounter Additional Health Concerns Assessment Noted Time A Body Mass Index follow-up plan has been documented for the patient 09/11/2024 6:12 PM EDT documented as of this encounter Care Teams Informatica Mdm Developer Relationship Specialty Start Date End Date Willi Frost MD [address] [place] [address] [address] [place] [address] PCP - General 06/11/24 documented as of this encounter
--- OUTSIDE RECORDS SUMMARY | 2024-10-15 12:36 | XMS_ITS | Encounter Summary ---
Author Organization [facility] Address [address] [place] [address] Care Team Providers Care Geopolitics Teacher Name Role Phone Willi Frost MD Primary Care Provider [phone] Encounter Details Date Type Department Care Team [...] Upcoming Encounters Date Type Department Care Team ( Contact Info) Description 10/30/2024 8:00 AM EDT Clinical Support [facility] Hematology/BMT and Cellular Therapy Program [address] [phone] 10/30/2024 8:30 AM EDT Office Visit [facility] Hematology/BMT and Cellular Therapy Program [address] [phone] Radha Morelos, MAINTENANCE SHOP CLERK 800 [facility] [address] [place] [phone] 11/13/2024 1:00 PM EDT Office Visit [facility] [address] [place] [phone] Verena Montes PA 3101 [facility] [place] [phone] 11/27/2024 1:30 PM EDT Clinical Support [facility] Hematology/BMT and Cellular Therapy Program [address] [place] [phone] 11/27/2024 2:00 PM EDT Office Visit [facility] CC Hematology/BMT and Cellular Therapy Program [address] [phone] Mk Pastrana MD 800 [facility] [address] [place] [phone] documented as of this encounter Visit Diagnoses Not on filedocumented in this encounter Additional Health Concerns Assessment Noted Time A Body Mass Index follow-up plan has been documented for the patient 09/11/2024 6:12 PM EDT documented as of this encounter Care Teams Geopolitics Teacher Relationship Specialty Start Date End Date Willi Frost MD [address] [place] [address] [address] [place] [address] PCP - General 06/11/24 documented as of this encounter
--- OUTSIDE RECORDS SUMMARY | 2024-10-15 12:36 | XMS_ITS | Encounter Summary ---
Author Organization [facility] Address [address] [place] [address] Care Team Providers Care Hot Plate Press Operator Name Role Phone Willi Frost MD Primary Care Provider Encounter Details Date Type Department Care Team ([facility] Contact Info) Description 10/07/2024 Orders Only [facility] Hematology/BMT and Cellular Therapy Program [address] [place] [phone] Virgilio King, RN [facility] HEMATOLOGY PROGRAM CLINIC CML (chronic myelocytic leukemia) [...] Department Care Team (Late Contact Info) Description 10/30/2024 8:00 AM EDT Clinical Support [facility] Hematology/BMT and Cellular Therapy Program [address] [place] [phone] 10/30/2024 8:30 AM EDT Office Visit [facility] Hematology/BMT and Cellular Therapy Program [address] [place] [address] Radha Morelos, THREAD SEPARATOR [address] [facility] [address] [place] [phone] 11/13/2024 1:00 PM EDT Office Visit [facility] [address] [facility] [place] [address] Verena Montes PA [address] [facility] [address] [place] [address] 11/27/2024 1:30 PM EDT Clinical Support [facility] Hematology/BMT and Cellular Therapy Program [address] [phone] 11/27/2024 2:00 PM EDT Office Visit [facility] Hematology/BMT and Cellular Therapy Program [address] [phone] Mk Pastrana MD [address] [facility] [address] [place] [phone] documented as of this encounter Results * (ABNORMAL) Treponema Pallidum (Syphilis) Antibodies with Reflex to RPR and RPR Titer (Those with NOknown Syphilis) (10/08/2024 9:39 AM EDT) Syphilis Antibody (IgG+IgM) Reactive( A) Nonreactive 10/08/2024 12:31 PM EDT [facility] Comment:Result suggests infe ction with Treponema [...] MD LAB BLOOD ORDERABLES Final Re sult [facility] [address] [place] [address] documented in this encounter Visit Diagnoses Diagnosis CML (chronic myelocytic leukemia) (CMS/HCC)- Primary Chronic myeloid leukemia, without mention of having achieved remission documented in this encounter Additional Health Concerns Assessment Noted Time A Body Mass Index follow-up plan has been documented for the patient 09/11/2024 6:12 PM EDT documented as of this encounter Care Teams Hot Plate Press Operator Relationship Specialty Start Date End Date Willi Frost MD [address] [place] [address] [address] [place] [address] PCP - General 06/11/24 documented as of this encounter
--- OUTSIDE RECORDS SUMMARY | 2024-10-15 12:36 | XMS_ITS | Encounter Summary ---
Author Organization [facility] Address [address] [place] [address] Care Team Providers Care Hydraulic Technician Name Role Phone Willi Frost MD Primary Care Provider Encounter Details Date Type Department Care Team ([facility] st Contact Info) Description 10/14/2024 Telephone [facility] Hematology/BMT and Cellular Therapy Program [address] [place] [address] Mk Pastrana MD 800 [facility] [address] [place] [phone] Social History Tobacco Use Types Packs/Day Years [...] Telephone Encounter - Michelle Sims RN - 10/14/2024 9:02 AM EDT cancer program coordinator called patient with update on plan of care. * Telephone Encounter - Michelle Sims RN - 10/14/2024 8:53 AM EDT RN returned call and reaching out to community sports coordinator for update. * Telephone Encounter - Terry Jay - 10/14/2024 8:39 AM EDT Callback Number: [phone] Patient calling with concerns about her catheter documented in this encounter Plan of Treatment Upcoming Encounters Date Type Department Care Team ([facility] st Contact Info) Description 10/30/2024 8:00 AM EDT Clinical Support [facility] Hematology/BMT and Cellular Therapy Program [address] [place] [phone] 10/30/2024 8:30 AM EDT Office Visit [facility] Hematology/BMT and Cellular Therapy Program [address] [phone] Radha Morelos, WATER HYDRANT INSTALLER [address] [facility] [address] [place] [phone] 11/13/2024 1:00 PM EDT Office Visit [address] [phone] Verena Montes, SALVADOR [address] [place] [phone] 11/27/2024 1:30 PM EDT Clinical Support [facility] Hematology/BMT and Cellular Therapy Program [address] [phone] 11/27/2024 2:00 PM EDT Office Visit [facility]ology/BMT and Cellular Therapy Program [address] [phone] Mk Pastrana MD [address] [facility] [address] [place] [phone] documented as of this encounter Visit Diagnoses Not on filedocumented in this encounter Additional Health Concerns Assessment Noted Time A Body Mass Index follow-up plan has been documented for the patient 09/11/2024 6:12 PM EDT documented as of this encounter Care Teams Hydraulic Technician Relationship Specialty Start Date End Date Willi Frost MD [address] [place] [address] [address] [place] [address] PCP - General 06/11/24 documented as of this encounter
--- OUTSIDE RECORDS SUMMARY | 2024-10-15 12:36 | XMS_ITS | Encounter Summary ---
Author Organization [facility] Address [address] [place] [address] Care Team Providers Care Brick Pitcher Name Role Phone Willi Frost MD Primary Care Provider Encounter Details Date Type Department Care Team ([facility] Contact Info) Description 10/10/2024 Telephone [facility] Hematology/BMT and Cellular Therapy Program [address] [place] [address] Michelle iSms, RN [facility] HEMATOLOGY [facility] CLINIC Social History Tobacco [...] Upcoming Encounters Date Type Department Care Team ([facility] Contact Info) Description 10/30/2024 8:00 AM EDT Clinical Support [facility] Hematology/BMT and Cellular Therapy Program [address] [phone] 10/30/2024 8:30 AM EDT Office Visit [facility]ematology/BMT and Cellular Therapy Program [address] [phone] Radha Morelos, MANAGER IT SECURITY [address] [facility] [address] [place] [phone] 11/13/2024 1:00 PM EDT Office Visit [facility] [address] [place] [address] Verena Montes PA [address] [facility] [address] [place] [address] 11/27/2024 1:30 PM EDT Clinical Support [facility] Hematology/BMT and Cellular Therapy Program [address] [place] [address] 11/27/2024 2:00 PM EDT Office Visit [facility] Hematology/BMT and Cellular Therapy Program [address] [place] [address] Mk Pastrana MD 800 [facility] [address] [place] [phone] documented as of this encounter Visit Diagnoses Not on filedocumented in this encounter Additional Health Concerns Assessment Noted Time A Body Mass Index follow-up plan has been documented for the patient 09/11/2024 6:12 PM EDT documented as of this encounter Care Teams Brick Pitcher Relationship Specialty Start Date End Date Willi Frost MD [address] [place] [address] [address] [place] [address] PCP - General 06/11/24 documented as of this encounter
--- OUTSIDE RECORDS SUMMARY | 2024-10-15 12:36 | XMS_ITS | Encounter Summary ---
Author Organization [facility] Address [address] [place] [address] Care Team Providers Care Work Force Advisor Name Role Phone Willi Frost MD Primary Care Provider Encounter Details Date Type Department Care Team (Latest Contact Info) Description 10/08/2024 Travel Social History Tobacco Use Types Packs/Day [...] Hematology/BMT and Cellular Therapy Program [address] [phone] 10/30/2024 8:30 AM EDT Office Visit [facility] Hematology/BMT and Cellular Therapy Program [address] [phone] Radha Morelos, CONTROL CLERK 800 [facility] [address] [place] [phone] 11/13/2024 1:00 PM EDT Office Visit [facility] [address] [place] [phone] Verena Montes PA [address] [facility] [address] [place] [phone] 11/27/2024 1:30 PM EDT Clinical Support [facility] Hematology/BMT and Cellular Therapy Program [address] [phone] 11/27/2024 2:00 PM EDT Office Visit [facility] Hematology/BMT and Cellular Therapy Program [address] [phone] Mk Pastrana MD 800 [facility] [address] [place] [phone] documented as of this encounter Visit Diagnoses Not on filedocumented in this encounter Additional Health Concerns Assessment Noted Time A Body Mass Index follow-up plan has been documented for the patient 09/11/2024 6:12 PM EDT documented as of this encounter Care Teams Work Force Advisor Relationship Specialty Start Date End Date Willi Frost MD [address] [place] [address] [address] [place] [address] PCP - General 06/11/24 documented as of this encounter
--- OUTSIDE RECORDS SUMMARY | 2024-10-15 12:36 | XMS_ITS | Clinical Summary ---
Author Organization [facility] Address [address] [place] [address] Care Team Providers Care Tire Tester Name Role Phone Willi Frost MD Primary Care Provider [phone] Allergies No known active allergies Medications cetirizine (ZyrTEC) 10 MG tablet Take 1 tablet by mouth daily. 7 tablet 09/11/19 25 Active Additional Information Patient not taking.Reported on 10/08/2024 PONATinib (Iclusig) 45 MG chemo tablet Take 1 tablet (45 mg total) by mouth daily. Take with or without food. Swallowed whole. 30 tablet 1 10/09/19 25 025 Active Asciminib HCl 40 MG tablet Take 40 mg by mouth daily. 60 tablet 2 07/13/19 25 025 Discontinued Active Problems Problem Noted Date Diagnosed Date Second hand smoke exposure 10/08/2024 CML (chronic myelocytic leukemia) 09/10/2024 Encounters Date Type Department Care Team Description 10/14/2024 Telephone [facility] Hematology/BMT and Cellular Therapy Program [address] [place] [address] Mk Pastrana MD 10/14/2024 Lab Requisition [facility] Blood Bank [address] [place] [address] Moises Estrada MD General medical exam 10/10/2024 Telephone [facility] Hematology/BMT and Cellular Therapy Program [address] [place] [address] Michelle Sims RN 10/10/2024 Lab Requisition [facility] [address] [place] [address] Dary Vincent APRN Acute myeloblastic leukemia, 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) 10/08/2024 10:00 AM EDT Office Visit [facility] Hematology/BMT and Cellular Therapy Program [address] [phone] Mk Pastrana MD CML (chronic myelocytic leukemia) (CMS/HCC) (Primary Dx); Encounter for antineoplastic chemotherapy; Acquired syphilis 10/08/2024 9:30 AM EDT Office Visit [facility] Hematology/BMT and Cellular Therapy Program [address] [phone] 10/08/2024 Telephone [facility] Interventional Radiology [address] [place] [address] Radha Mary RN 10/08/2024 Telephone [facility] [address] [place] [phone] Erwin Valentin, VernellD new start 10/08/2024 Travel 10/08/2024 Lab Requisition [facility] Blood [facility] [address] [place] [address] Moises Estrada MD General medical exam 10/07/2024 Travel 10/07/2024 Orders Only [facility] Hematology/BMT and Cellular Therapy Program [address] [phone] Virgilio King, RN CML (chronic myelocytic leukemia) ([facility]/HCC) (Primary Dx) 10/04/2024 Lab Requisition [facility] [address] [place] [address] Dary Vincent APRN Chronic myeloid leukemia, BCR/ABL-positive, 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) 10/03/2024 9:00 AM EDT Procedure Visit [facility] Hematology/BMT and Cellular Therapy Program [address], [address] [place] [phone] Bhavana Bella APRN CML (chronic myelocytic leukemia) ([facility]) (Primary Dx) 10/03/2024 8:30 AM EDT Clinical Support [facility] Hematology/BMT and Cellular Therapy Program [address] [phone] 10/03/2024 Telephone [facility] Hematology/BMT and Cellular Therapy Program [address] [phone] Oralia Liu RN 10/03/2024 Travel 10/02/2024 Travel 09/25/2024 3:00 PM EDT - 09/25/2024 11:59 PM EDT Hospital Encounter [facility] Pulmonary Function Testing [address] [place] [phone] CML (chronic myelocytic leukemia) ([facility]) Discharge Disposition: Home or Self Care 09/25/2024 2:00 PM EDT - 09/25/2024 2:59 PM EDT Hospital Encounter [facility] Echo [address] [facility] 2nd [place] [address] CML (chronic myelocytic leukemia) ([facility]) Discharge Disposition: Home or Self Care 09/25/2024 1:24 PM EDT - 09/25/2024 1:59 PM EDT Hospital Encounter [facility] [address], [address] [place] [address] Discharge Disposition: Home or Self Care 09/25/2024 1:00 PM EDT Clinical Support [facility] Hematology/BMT and Cellular Therapy Program [address] [phone] Jocelin Ahuja RN 09/25/2024 11:00 AM EDT Office Visit [facility] Hematology/BMT and Cellular Therapy Program [address] [phone] Elena Ledezma APRN CML (chronic myelocytic leukemia) ([facility]/HCC) 09/25/2024 10:00 AM EDT Clinical Support [facility] Hematology/BMT and Cellular Therapy Program [address] [place] [address] CML (chronic myelocytic leukemia) ([facility]/HCC) 09/25/2024 Social Work Psych Oncology [address] [place] [address] Michelle Gamez, [facility] 09/25/2024 Orders Only [facility] Hematology/BMT and Cellular Therapy Program 750 [facility], [address] [place] [phone] Leo De Souza RN CML (chronic myelocytic leukemia) ([facility]) (Primary Dx) 09/25/2024 Telephone [facility] Hematology/BMT and Cellular Therapy Program [address] [phone] Tg Rodgers RN 09/25/2024 Travel 09/19/2024 Social Work Psych Oncology [address] [place] [address] Michelle Gamez, [facility] 09/17/2024 Orders Only [facility] Hematology/BMT and Cellular Therapy Program [address] [phone] Leo De Souza RN CML (chronic myelocytic leukemia) ([facility]) (Primary Dx) 09/11/2024 3:00 PM EDT Office Visit [facility] Adult Dentistry [address] [place] [address] Michelle Garza Cancer ([facility]) (Primary Dx); Extraction of tooth needed 09/11/2024 Travel 09/11/2024 Orders Only [facility] Hematology/BMT and Cellular Therapy Program [address] [place] [address] Leo De Souza RN CML (chronic myelocytic leukemia) ([facility]) (Primary Dx) 09/10/2024 1:34 PM EDT - 09/10/2024 11:59 PM EDT Hospital Encounter [facility] Infusion Clinic 2 [address] [place] [address] CML (chronic myelocytic leukemia) ([facility]/HCC) (Primary Dx) Discharge Disposition: Home or Self Care 09/10/2024 11:30 AM EDT Office Visit [facility] Hematology/BMT and Cellular Therapy Program [address] [phone] Bhavana Bella APRN CML (chronic myelocytic leukemia) (CMS/HCC) (Primary Dx) 09/10/2024 11:00 AM EDT Clinical Support [facility] Hematology/BMT and Cellular Therapy Program [address] [phone] Tony Foreman, RN 09/10/2024 Telephone [facility] Hematology/BMT and Cellular Therapy Program [address] [place] [address] Tg Rodgers, RN 09/10/2024 Travel 08/28/2024 2:00 PM EDT [facility] [address] [place] [address] Michelle Garza CML (chronic myelocytic leukemia) ([facility]/HCC) 08/28/2024 8:29 AM EDT - 08/28/2024 11:59 PM EDT Hospital Encounter [facility] Ultrasound [address] [place] [phone] CML (chronic myelocytic leukemia) ([facility]/HCC); Hyperbilirubinemia; Hepatosplenomegaly Discharge Disposition: Home or Self Care 08/28/2024 Social Work Psych Oncology [address] [place] [address] Michelle Gamez LCSW 08/28/2024 Orders Only [facility] Hematology/BMT and Cellular Therapy Program [address] [phone] Jojo Iyer, Yoli CML (chronic myelocytic leukemia) (CMS/HCC) (Primary Dx) 08/28/2024 Telephone [facility] Hematology/BMT and Cellular Therapy Program [address] [place] [phone] Jocelin Ahuja RN critical lab 08/28/2024 Travel 08/27/2024 Travel 08/20/2024 9:30 AM EDT Office Visit [facility] Hematology/BMT and Cellular Therapy Program [address] [place] [phone] Mk Pastrana MD Encounter for antineoplastic chemotherapy (Primary Dx); CML (chronic myelocytic leukemia) (CMS/HCC); Hyperbilirubinemia; CML (chronic myeloid leukemia) (CMS/HCC); Hepatosplenomegaly 08/20/2024 9:00 AM EDT Clinical Support [facility] Hematology/BMT and Cellular Therapy Program [address] [phone] 08/20/2024 Social Work Psych Oncology [address] [place] [phone] Michelle Gamez LCSW 08/20/2024 Travel 08/01/2024 Telephone [facility] Hematology/BMT and Cellular Therapy Program [address] [phone] Mk Pastrana MD 07/30/2024 Orders Only [facility] Hematology/BMT and Cellular Therapy Program [address] [place] [phone] Virgilio King RN CML (chronic myelocytic leukemia) (CMS/HCC); Smoker 07/24/2024 11:00 AM EDT Office Visit [facility] Hematology/BMT and Cellular Therapy Program [address] [phone] Mk Pastrana MD CML (chronic myelocytic leukemia) (CMS/HCC) (Primary Dx); Hyperbilirubinemia; Encounter for antineoplastic chemotherapy 07/24/2024 10:30 AM EDT Clinical Support [facility] Hematology/BMT and Cellular Therapy Program [address] [phone] Gisselle Shaffer RN 07/24/2024 Travel 07/18/2024 Telephone [facility] Hematology/BMT and Cellular Therapy Program [address] [place] [address] Mk Pastrana MD from Last 3 Months Family History Medical History Relation Name Comments Cancer Mother Yulissa Haddad Relation Name Status Comments Mother Yulissa Haddad Social History Tobacco Use Types Packs/Day Years [...] Mass Index 21.31 10/08/2024 9:58 AM EDT Plan of Treatment Upcoming Encounters Date Type Department Care Team ([facility] st Contact Info) Description 10/30/2024 8:00 AM EDT Clinical Support [facility] Hematology/BMT and Cellular Therapy Program [address] [phone] 10/30/2024 8:30 AM EDT Office Visit [facility] Hematology/BMT and Cellular Therapy Program [address] [phone] Radha Morelos, INSULATION CUTTER 800 [facility] [address] [place] [phone] 11/13/2024 1:00 PM EDT Office Visit [facility] [address] [facility] [place] [address] Verena Montes PA [address] [facility] [address] [place] [address] 11/27/2024 1:30 PM EDT Clinical Support [facility] Hematology/BMT and Cellular Therapy Program [address] [facility] [phone] 11/27/2024 2:00 PM EDT Office Visit [facility] Hematology/BMT and Cellular Therapy Program [address] [facility], [place] [phone] Mk Pastrana MD [address] [facility] [address] [place] [phone] Health Maintenance Due Date Last Done Comments Dental Prophylaxis 1972 Dental X-Ray: Bitewings 1972 [facility]-/Child/Adol SDOH Screenings 1972 [id number] Vaccine (#1) 1977 [facility]- SDOH Screenings 1990 [...] 2017 [facility]-Breast Cancer Screening 2022 [facility]-Influenza Vaccine (#1) 2024 Dental Oral Exam 03/01/2025 08/28/2024 [facility]-Depression [...] Name Priority Date/Time Associated Diagnosis Comments RPR TITER Routine 10/08/2024 9:39 AM EDT CML (chronic myelocytic leukemia) (CMS/HCC) RPR SCREENING WITH RFLEX TO TITER (REFLEX [...] 9:39 AM EDT CML (chronic myelocytic leukemia) ([facility]/HCC) TREPONEMA PALLIDUM (SYPHILIS) ANTIBODIES WITH REFLEX TO RPR AND RPR TITER (THOSE WITH NO KNOWN SYPHILIS) Routine 10/08/2024 9:39 AM EDT CML (chronic myelocytic leukemia) ([facility]) BILL ONLY TYPE & SCREEN Routine 10/08/19 10:00 AM EDT General medical exam BILL ONLY ISOAGGLUTININ TITER Routine 10/07/2024 10:00 AM EDT General medical exam BILL ONLY HLA NGS HIGH RESOLUTION TYPING BMT NMDP DONOR Routine 10/07/2024 10:00 AM EDT Acute myeloblastic leukemia, not having achieved remission ([facility]/HCC) BILL ONLY HLA NGS HIGH RESOLUTION TYPING BMT NMDP DONOR Routine 10/03/2024 11:46 AM EDT Chronic myeloid leukemia, BCR/ABL-positive, 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) DONOR HLA TYPING Routine 10/03/2024 11:4 6 AM EDT Chronic myeloid leukemia, BCR/ABL-positive, 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) BILL ONLY TYPE & SCREEN Routine 10/04/19 11:45 AM EDT General medical exam BILL ONLY ISOAGGLUTININ TITER Routine 10/03/2024 11:45 AM EDT General medical exam BIOPSY BONE MARROW Routine 10/03/2024 9: 00 AM EDT CML (chronic myelocytic leukemia) ([facility]) BONE MARROW EXAM Routine 10/03/2024 8:48 AM EDT CML (chronic myelocytic leukemia) ([facility]) FISH, ONCOLOGY Routine 10/03/2024 8:48 AM EDT CML (chronic myelocytic leukemia) ([facility]) CHROMOSOME KARYOTYPE, ONCOLOGY Routine 10/03/2024 8:48 AM EDT CML (chronic myelocytic leukemia) ([facility]) MYELOID FOCUSED PANEL, 50 GENE Routine 10/03/2024 8:48 AM EDT CML (chronic myelocytic leukemia) (CMS/HCC) CYTOGENETICS TESTING, ONCOLOGY Routine 10/03/2024 8:48 AM EDT CML (chronic myelocytic leukemia) (CMS/HCC) LEUKEMIA/LYMPHOMA - IMMUNOPHENOTYPING BY FLOW CYTOMETRY Routine 10/03/2024 8:48 AM EDT CML (chronic myelocytic leukemia) (CMS/HCC) CBC WITH AUTO DIFFERENTIAL Routine 10/03/2024 8:18 AM EDT CML (chronic myelocytic leukemia) (CMS/HCC) GA BREATHING CAPACITY TEST Routine 09/25/2024 4:31 PM EDT CML (chronic myelocytic leukemia) (CMS/HCC) ECHO, ADULT TRANSTHORACIC COMPLETE W/ STRAIN, 3D Routine 09/25/2024 2:54 PM EDT CML (chronic myelocytic leukemia) (CMS/HCC) XR CHEST 2 VIEWS Routine 09/25/2024 1:31 PM EDT CML (chronic myelocytic leukemia) (CMS/HCC) ECG ADULT Routine 09/25/2024 10:38 AM EDT [...] AM EDT CML (chronic myelocytic leukemia) (CMS/HCC) STANISLAW BENEDICT VIRUS (EBV) QUANTITATIVE PCR Routine 09/25/2024 10:23 [...] 10:23 AM EDT CML (chronic myelocytic leukemia) ([facility]) ABO/RH Routine 09/25/2024 10:23 AM EDT CML (chronic myelocytic leukemia) (CMS/HCC) COMPREHENSIVE METABOLIC PANEL, PLASMA Routine 09/25/2024 10:23 AM EDT CML (chronic myelocytic leukemia) ([facility]/HCC) CBC WITH AUTO DIFFERENTIAL Routine 09/25/2024 10:23 AM EDT CML (chronic myelocytic leukemia) ([facility]/HCC) CBC WITH AUTO DIFFERENTIAL STAT 09/11/2024 3:05 [...] :40 PM EDT CML (chronic myelocytic leukemia) ([facility]) PREPARE PLATELETS Routine 09/10/2024 2:0 6 PM EDT CML (chronic myelocytic leukemia) ([facility]) QUANT DETECTION OF BCR-ABL1 MAJOR (P210) (SO) Routine 09/10/2024 11:12 AM EDT CML (chronic myelocytic leukemia) ([facility]) LIPASE, PLASMA Routine 09/10/2024 11:12 AM EDT CML (chronic myelocytic leukemia) ([facility]) AMYLASE, PLASMA Routine 09/10/2024 11:12 AM EDT CML (chronic myelocytic leukemia) ([facility]) PHOSPHORUS, PLASMA Routine 09/10/2024 11 :12 AM EDT CML (chronic myelocytic leukemia) ([facility]) MAGNESIUM, PLASMA Routine 09/10/2024 11: 12 AM EDT CML (chronic myelocytic leukemia) ([facility]) LACTATE DEHYDROGENASE, PLASMA Routine 09/10/2024 11:12 AM EDT CML (chronic myelocytic leukemia) ([facility]) COMPREHENSIVE METABOLIC PANEL, PLASMA Routine 09/10/2024 11:12 AM EDT CML (chronic myelocytic leukemia) (CMS/HCC) CBC WITH AUTO DIFFERENTIAL Routine 09/10/2024 11:12 AM EDT CML (chronic myelocytic leukemia) (CMS/HCC) PANORAMIC RADIOGRAPHIC IMAGE Routine 08/28/2024 2:00 PM [...] AM EDT CML (chronic myelocytic leukemia) (CMS/HCC) HEPATITIS C ANTIBODY W/REFLEX TO HCV QUANT PCR Routine 04/30/2024 12:49 PM EST CML (chronic myelocytic leukemia) (CMS/HCC) HIV 1/2 ANTIBODY/ANTIGEN SCREEN WITH REFLEX TO HIV I/II DIFFERENTIATION Routine 04/30/2024 12:49 PM EST CML (chronic myelocytic leukemia) (CMS/HCC) from Last 3 Months or Most Recently Relevant to Health Maintenance Results * (ABNORMAL) RPR Screening with Rflex to Titer (10/08/2024 9:39 AM EDT) Pathologist [facility] Rapid Plasma Reagin Reactive( A) Non Reactive 10/09/2024 1:33 AM EDT [facility] Blood Venous blood specimen / Unknown Venipuncture / Unknown 10/08/2024 9:39 AM EDT 10/08/2024 9:57 AM EDT Mk Pastrana MD LAB BLOOD ORDERABLES Final Re sult Performing Organization Address [facility] de Phone Number [facility] [address] [place] [address] * (ABNORMAL) Treponema Pallidum (Syphilis) Antibodies with Reflex to RPR and RPR Titer (Those with NOknown Syphilis) (10/08/2024 9:39 AM EDT) Syphilis Antibody (IgG+IgM) Reactive( A) Nonreactive 10/08/2024 12:31 PM EDT [facility] Comment:Result suggests infe ction with [...] ORDERABLES Final Re sult Performing Organization Address [facility] Co de Phone Number [facility] [address] [place] [address] * (ABNORMAL) RPR Titer (10/08/2024 9:39 AM EDT) RPR Titer Pos 1:1(A) <1:1 10/09/2024 2:18 AM EDT [facility] Blood Venous blood specimen / Unknown Venipuncture / Unknown 10/08/2024 9:39 AM EDT 10/08/2024 9:57 AM EDT Mk Pastrana MD LAB BLOOD ORDERABLES Final Re sult [facility] [address] [place] [address] * (ABNORMAL) CBC and Differential (10/08/2024 9:39 AM EDT) Only the most recent of7 resultswithin the time period is included. WBC Count 2.43(L) 3.70 - 10.30 10*3/uL LAB HEMATOLOGY METHOD 10/08/2024 10:04 AM EDT [facility] RBC Count 3.97 3.90 - 5.20 10*6/uL LAB HEMATOLOGY METHOD 10/08/2024 10:04 AM EDT [facility] HGB 12.9 11.2 - 15.7 g/dL LAB HEMATOLOGY METHOD 10/08/2024 10:04 AM EDT [facility] HCT 39.2 34.0 - 45.0 % LAB HEMATOLOGY METHOD 10/08/2024 10:04 AM EDT [facility] Platelet Count 124(L) 155 - 369 10*3/uL LAB HEMATOLOGY METHOD 10/08/2024 10:04 AM EDT [facility] MCV 99(H) 79 - 98 fL LAB HEMATOLOGY METHOD 10/08/2024 10:04 AM EDT [facility] MCH 32.5(H) 26.0 - 32.0 pg LAB HEMATOLOGY METHOD 10/08/2024 10:04 AM EDT [facility] MCHC 32.9 30.7 - 35.5 g/dL LAB HEMATOLOGY METHOD 10/08/2024 10:04 AM EDT [facility] RDW 17.5(H) 11.5 - 14.5 % LAB HEMATOLOGY METHOD 10/08/2024 10:04 AM EDT [facility] MPV 10.7 8.8 - 12.5 fL LAB HEMATOLOGY METHOD 10/08/2024 10:04 AM EDT [facility] nRBC 0.0 <=0.0 per 100 WBCs LAB HEMATOLOGY METHOD 10/08/2024 10:04 AM EDT [facility] Differential Type Automated LAB HEMATOLOGY METHOD 10/08/2024 10:04 AM EDT [facility] Neutrophils % 38 % LAB HEMATOLOGY METHOD 10/08/2024 10:04 AM EDT [facility] Lymphocytes % 51 % LAB HEMATOLOGY METHOD 10/08/2024 10:04 AM EDT [facility] Monocytes % 8 % LAB HEMATOLOGY METHOD 10/08/2024 10:04 AM EDT [facility] Eosinophils % 1 % LAB HEMATOLOGY METHOD 10/08/2024 10:04 AM EDT [facility] Basophils % 1 % LAB HEMATOLOGY METHOD 10/08/2024 10:04 AM EDT [facility] Immature Granulocytes % 1 % LAB HEMATOLOGY METHOD 10/08/2024 10:04 AM EDT [facility] Neutrophils Absolute 0.92(LL) 1.60 - 6.10 10*3/uL LAB HEMATOLOGY METHOD 10/08/2024 10:04 AM EDT [facility] Lymphocytes Absolute 1.25 1.20 - 3.90 10*3/uL LAB HEMATOLOGY METHOD 10/08/2024 10:04 AM EDT [facility] Monocytes Absolute 0.19(L) 0.30 - 0.90 10*3/uL LAB HEMATOLOGY METHOD 10/08/2024 10:04 AM EDT [facility] Eosinophils Absolute 0.02 0.00 - 0.50 10*3/uL LAB HEMATOLOGY METHOD 10/08/2024 10:04 AM EDT [facility] Basophils Absolute 0.03 0.00 - 0.10 10*3/uL LAB HEMATOLOGY METHOD 10/08/2024 10:04 AM EDT [facility] Immature Granulocytes Absolute 0.02 0.00 - 0.06 10*3/uL LAB HEMATOLOGY METHOD 10/08/2024 10:04 AM EDT [facility] Blood Venous blood specimen / Unknown Venipuncture / Unknown 10/08/2024 9:39 AM EDT 10/08/2024 9:58 AM EDT Narrative [facility] - 10/08/2024 10:04 AM EDT Therapeutic decision making should be based on absolute values, rather than percentages. us Mk Pastrana MD LAB BLOOD ORDERABLES Final Re sult [facility] [address] [place] [address] * Lipase, Plasma (10/08/2024 9:39 AM EDT) Only the most recent of4 resultswithin the time period is included. Lipase, Plasma 31 19 - 63 U/L 10/08/2024 10:32 AM EDT [facility] Blood Venous blood specimen / Unknown Venipuncture / Unknown 10/08/2024 9:39 AM EDT 10/08/2024 9:57 AM EDT Mk Pastrana MD LAB BLOOD ORDERABLES Final Re sult Performing Organization Address [facility] Co de Phone Number [facility] [address] [place] [address] * Lactate Dehydrogenase, Plasma (10/08/2024 9:39 AM EDT) Only the most recent of5 resultswithin the time period is included. LDH, Plasma 238 116 - 250 U/L 10/08/2024 10:32 AM EDT [facility] Comment:Hemolyzed, result ma y be falsely increased. Blood Venous blood specimen / Unknown Venipuncture / Unknown 10/08/2024 9:39 AM EDT 10/08/2024 9:57 AM EDT Mk Pastrana MD LAB BLOOD ORDERABLES Final Re sult Performing Organization Address [facility] Co de Phone Number [facility] [address] [place] [address] * Amylase, Plasma (10/08/2024 9:39 AM EDT) Only the most recent of4 resultswithin the time period is included. Amylase 43 27 - 114 U/L 10/08/2024 10:32 AM EDT [facility] Blood Venous blood specimen / Unknown Venipuncture / Unknown 10/08/2024 9:39 AM EDT 10/08/2024 9:57 AM EDT Mk Pastrana MD LAB BLOOD ORDERABLES Final Re sult Performing Organization Address City/[facility]/ZIP Co de Phone Number [facility] [address] [place] [address] * Comprehensive Metabolic Panel, Plasma (10/08/2024 9:39 AM EDT) Only the most recent of5 resultswithin the time period is included. Pathologist [facility] Glucose, Plasma 90 74 - 99 mg/dL 10/08/2024 10:32 AM EDT [facility] BUN, Plasma 10 7 - 21 mg/dL 10/08/2024 10:32 AM EDT [facility] Creatinine, Plasma 0.65 0.60 - 1.10 mg/dL 10/08/2024 10:32 AM EDT [facility] BUN/Creatinine Ratio 15 10/08/2024 10:32 AM EDT [facility] Sodium, Plasma 142 136 - 145 mmol/L 10/08/2024 10:32 AM EDT [facility] Potassium, Plasma 4.3 3.6 - 4.9 mmol/L 10/08/2024 10:32 AM EDT [facility] Chloride, Plasma 107 97 - 107 mmol/L 10/08/2024 10:32 AM EDT [facility] CO2, Plasma 22 22 - 29 mmol/L 10/08/2024 10:32 AM EDT [facility] Anion Gap 13 6 - 16 mmol/L 10/08/2024 10:32 AM EDT [facility] Total Calcium, Plasma 9.5 8.9 - 10.2 mg/dL 10/08/2024 10:32 AM EDT [facility] Total Protein 7.5 6.3 - 7.9 g/dL 10/08/2024 10:32 AM EDT [facility] Albumin, Plasma 4.8 3.5 - 5.2 g/dL 10/08/2024 10:32 AM EDT [facility] AST, Plasma 22 10 - 35 U/L 10/08/2024 10:32 AM EDT [facility] ALT, Plasma 21 10 - 35 U/L 10/08/2024 10:32 AM EDT [facility] Alkaline Phosphatase, Plasma 104 35 - 104 U/L 10/08/2024 10:32 AM EDT [facility] Total Bilirubin, Plasma 1.0 0.2 - 1.1 mg/dL 10/08/2024 10:32 AM EDT [facility] eGFRcr 106.1 mL/min/1.7 3m*2 10/08/2024 10:32 AM EDT [facility] Comment:Reported eGFRcr in m L/min/1.73m2 is based the CKD-EPI 2020 equation that does not use a race coefficient. Blood Venous blood specimen / Unknown Venipuncture / Unknown 10/08/2024 9:39 AM EDT 10/08/2024 9:57 AM EDT Mk Pastrana MD LAB BLOOD ORDERABLES Final Re sult Performing Organization Address City/[facility] Co de Phone Number [facility] [address] [place] [address] * BILL ONLY HLA NGS High Resolution Typing NMDP Donor (RESEARCH ONLY) (10/07/2024 10:00 AM EDT) Only the most recent of2 resultswithin the time period is included. Blood Venous blood specimen / Unknown 10/07/2024 10:00 AM EDT 10/10/2024 3:24 PM EDT Dary Vincent APRN LAB BLOOD ORDERABLES Final Result Performing Organization Address [facility] de Phone Number [facility] [address] [place] [address], [place] * Bill Only Isoagglutinin Titer (10/07/2024 10:00 AM EDT) Only the most recent of2 resultswithin the time period is included. Blood Bank Lab Only (Blood Bank Lab Only) 10/07/2024 10:00 AM EDT 10/14/2024 7:26 AM EDT Moises Estrada MD LAB BLOOD BANK TEST ORDERAB LES Final Result Performing Organization Address [facility] de Phone Number BLOOD BANK [address] [place] [address], [place] * Bill Only Type & Screen (10/07/2024 10:00 AM EDT) Only the most recent of2 resultswithin the time period is included. Blood Bank Lab Only (Blood Bank Lab Only) 10/07/2024 10:00 AM EDT 10/14/2024 7:26 AM EDT Moises Estrada MD LAB BLOOD BANK TEST ORDERAB LES Final Result Performing Organization Address [facility] de Phone Number BLOOD BANK [address] [place] [address], * HLA Typing, Donor (HLATWD) (10/03/2024 11:46 AM EDT) HLA Lab Only (HLA Lab Only) 10/03/2024 11:46 AM EDT 10/04/2024 12:41 PM EDT Dary Vincent APRN LAB BLOOD ORDERABLES Final Result Performing Organization Address [facility] de Phone Number [facility] [address] [place] [address], [place] * BIOPSY BONE MARROW (10/03/2024 9:00 AM [...] to surronding structures. Alternatives discussed: Delayed treatment Selden protocol: Procedure explained and questions answered to [...] IN CLINIC/BEDSIDE ORDERABL ES Final Result * Myeloid Focused Panel, 50 gene (10/03/2024 8:48 AM EDT) Interpretation The following three (3) genes with persistent variants have been detected in this bone marrow specimen. These gene variants were detected on 06/15/2023. Gene: DNMT3A Mutation: c.1208delA; p.[id number] Allele Frequency (%): 43% Gene: ASXL1 Mutation: c.1934dupG; p.[id number] Allele Frequency (%): 26% ID: [id number] Gene: BCOR Mutation: c.4936delC; p.[id number] 8 Allele Frequency (%): 11% Additional Details on Mutation Identified: Gene Transcript Genome Chrom Coordinate RefVar DNMT3A [id number] Hg19 2 [id number] Jose ASXL1 [id number] Hg19 20 [id number] dupG BCOR [id number] Hg19 X [id number] delC 10/14/2024 5:04 PM EDT [facility] [...] malignancies. Samples are then sequenced on the [employer] NextSeq 2000 ([employer], [place]). A custom bioinformatics pipeline aligns [...] of hematologic malignancies. 10/14/2024 5:04 PM EDT [facility] Disclaimer This test was developed and its performance characteristics determined by the Clinical Molecular and Genomic Pathology Laboratory at the [facility]. It has not been cleared [...] clinical laboratory testing. 10/14/2024 5:04 PM EDT [facility] Pathologist Signature Reviewed by: Og Duque 10/14/2024 5:04 PM EDT [facility] Bone Marrow Specimen from bone marrow obtained by aspiration / Unknown Non-blood Collection / Unknown 10/03/2024 8:48 AM EDT 10/03/2024 10:21 AM EDT us Mk Pastrana MD LAB MOLECULAR DIAGNOSTICS ORD ERABLES Final Result [facility] [address] [place] [address], * FISH, Oncology (10/03/2024 8:48 AM EDT) Specimen Type Bone Marrow 10/10/2024 2:57 PM EDT [facility] Clinical Indication Chronic Myelogenous Leukemia 10/10/2024 2:57 PM EDT [facility] Specimen Adequacy Adequate 025 2:57 PM EDT [facility] Interpretation ABL1/ASS1/BCR FISH: IMPRESSION: ABNORMAL [...] cells with an additional copies of the [place] chromosome. Gain of a Ph chromosome is one of the common additional cytogenetic abnormalities (ACAs) in CML. Additional chromosomal abnormalities (ACAs) are frequent in CML patients, and are considered a hallmark of multistep disease progression, associated with an adverse prognostic effect during the progressive or advanced stages of CML (Marlee TUCKER et al., 2019. PMID: [id number]). 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 Clinical correlation is recommended. 10/10/2024 2:57 PM EDT [facility] ISCN nuc hilda(ABL1x3,ASS1x2, BCRx3)(ABL1 con [...] analyzed for a complete FISH test, and customer loyalty representative images were captured and stored using [employer] software (SUPR.). The normal controls ran in parallel with this specimen gave the expected hybridization results. The normal cutoffs for bone marrow and peripheral blood for marrow have been established in this lab by probe validation. 10/10/2024 2:57 PM EDT [facility] Disclaimer This test was developed and its performance characteristics determined by the [facility]. It has not been cleared [...] perform high complexity clinical laboratory testing. See [id number] for the chromosome analysis results on this specimen. 10/10/2024 2:57 PM EDT [facility] Pathologist Signature Reviewed by: Og Duque 10/10/2024 2:57 PM EDT [facility] Bone Marrow Non-blood Collection / Unknown 10/03/2024 8:48 AM EDT 10/03/2024 10:49 AM EDT us Mk Pastrana MD LAB CYTOGENETICS ORDERABLES F inal Result [facility] [address] [place] [address] * Chromosome Karyotype, Oncology (10/03/2024 8:48 AM EDT) Specimen Type Bone Marrow 10/10/2024 5:48 PM EDT [facility] Clinical Indication Chronic Myelogenous Leukemia 10/10/2024 5:48 PM EDT [facility] Specimen Adequacy Adequate 025 5:48 PM EDT [facility] Chromosome Analysis Result Giemsa-banded metaphase cells from unstimulated bone marrow cultures showed the following chromosome pattern: 46,XX,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 All metaphase [...] achieve complete cytogenetic and molecular remission ([facility] et al., 2022. PMID: [id number]). These findings also indicate progression of current condition. Clinical correlation is recommended. Note: Per [employer] (CAP) requirement additional karyotypes were performed and charged due to the presence of clonal abnormalities. See [facility]-[id number] for the FISH analysis results. # cells counted = 20 # cells analyzed = 20 # cells karyotyped = 4 Band resolution: 400-425 10/10/2024 5:48 PM EDT [facility] Pathologist Signature Reviewed by: Og Duque 10/10/2024 5:48 PM EDT [facility] Bone Marrow Non-blood Collection / Unknown 10/03/2024 8:48 AM EDT 10/03/2024 10:49 AM EDT us Mk Pastrana MD LAB CYTOGENETICS ORDERABLES F inal Result [facility] [address] [place] [address] * Leukemia/Lymphoma - Immunophenotyping by Flow Cytometry (10/03/2024 8:48 AM EDT) Clinical Indication CML 10/03/2024 1:16 PM EDT [facility] Flow Cytometry Interpretation MIXED MARROW ELEMENTS WITHOUT EVIDENCE OF INCREASED BLASTS OR ABNORMAL LYMPHOID POPULATIONS, BONE MARROW ASPIRATE. 10/03/2024 1:16 PM EDT [facility] Comments Specimen viability is 88%. [...] lymphoid populations. Final interpretation requires morphologic correlation ([id number]). The following antibodies were used in this analysis: CD45, CD2, CD3, CD4, CD5, CD7, CD8, CD10, CD13, CD14, CD15, CD16, CD19, CD20, CD33, CD34, CD38, CD56, CD117, HLA-DR, kappa surface light chains, lambda surface light chains 10/03/2024 1:16 PM EDT [facility] Disclaimer This test was developed and its performance characteristics determined by the Immuno-Molecular Pathology Laboratory at the [facility]. It has not been cleared [...] testing. 10/03/2024 1:16 PM EDT [facility] Pathologist Signature Reviewed by: Kathi Soria MD 10/03/2024 1:16 PM EDT [facility] MRD Indicated Test Not Indicated 1:16 PM EDT [facility] Bone Marrow Specimen from bone marrow obtained by aspiration / Unknown Non-blood Collection / Unknown 10/03/2024 8:48 AM EDT 10/03/2024 10:18 AM EDT us Mk Pastrana MD LAB FLOW CYTOMETRY ORDERABLES Final Result [facility] [address] [place] [address] * Bone marrow exam (10/03/2024 8:48 AM EDT) Case Report Bone Marrow Case: [id number] Authorizing Provider: Mk Pastrana MD Collected: 10/03/2024 0848 Ordering Location: [facility] Hematology/BMT and Received: 10/03/2024 0954 Cellular Therapy Program Pathologist: Kathi Soria MD Specimens: A) - Bone Marrow Aspirate, left B) - Bone Marrow Biopsy, left C) - Peripheral Blood for Bone Marrow 3:18 PM EDT [facility] Final Diagnosis BONE MARROW, LEFT POSTERIOR ILIAC CREST, (PERIPHERAL SMEAR, ASPIRATE SMEARS, AND CORE BIOPSY): -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 - MILD RETICULIN FIBROSIS (PATCHY GRADE 1); NO INCREASE IN BLASTS, SEE COMMENT. 3:18 PM EDT [facility] at 1518 EDT Comment The patient has a history of chronic myeloid leukemia, and accompanying karyotype on prior specimen showed the presence of the [place] chromosome ([id number]). In the current specimen, erythroid precursors show megaloblastoid changes. Granulopoiesis is reduced and left-shifted. Megakaryocytes are increased in some of the aspirate spicules and exhibit small hypolobated forms. There is no evidence of increased blasts or increased fibrosis in the current specimen. Clinical correlation is recommended. 3:18 PM EDT [facility] Clinical Information CML ([place] positive) Now worsening neutropenia and thrombocytopenia 3:18 PM EDT [facility] CBC and Differential PERIPHERAL BLOOD: [...] and show normal morphology. 3:18 PM EDT [facility] Bone Marrow Differential BONE MARROW DIFFERENTIAL: 300 cells Normal Patient Neutrophils 15-50 9 Metamyelocytes 4-19 9 Myelocytes 1-18 13 Promyelocytes 1-8 10 Blasts 0-2 1 Monocytes 0-5 2 Erythroid 16-38 50 Lymphocytes 3-24 2 Eosinophils 0-6 2 Basophils 0-2 1 Plasma cells 0-4 1 Other 3:18 PM EDT [facility] Bone Marrow Aspirate and Biopsy [...] unremarkable. 5 3:18 PM EDT [facility] Special and Immunohistochemical Stains Immunohistochemica l stains [...] developed by and are performed at the [facility], [address] [place] [address]. All tests reported here, except those addressing [...] false negativity on decalcified specimens. 3:18 PM EDT [facility] Flow Cytometry Interpretation MIXED MARROW ELEMENTS WITHOUT EVIDENCE OF INCREASED BLASTS OR ABNORMAL LYMPHOID POPULATIONS, BONE MARROW ASPIRATE ([id number]). 5 3:18 PM EDT [facility] CYTOGENETICS/MOLECUL AR INTERPRETATION Correlation with cytogenetics/FISH/ molecular analysis is suggested. 5 3:18 PM EDT [facility] Gross Description B. LEFT A single specimen is received in formalin labeled bone marrow biopsy left posterior iliac crest and consists of 2 piece(s) of red/white tissue measuring 0.4/0.6 cm in length 0.2 cm in diameter. The specimen is submitted in to Histology for decalcification and routine processing. Cold Time: 1m 3:18 PM EDT [facility] Note: A resident was involved in the service. I attest I examined the relevant preparations for the specimens and confirmed the diagnosis or interpretation. 3:18 PM EDT [facility] Bone Marrow Peripheral blood specimen [...] MD LAB PATHOLOGY ORDERABLES Nani smith Result [facility] [address] [place] [address] * Pulmonary function testing (09/25/2024 4:31 PM EDT) [id number] 3.21 L 09/25/2024 4:28 PM EDT VYAIRE [...] 1.98 09/25/2024 4:28 PM EDT VYAIRE PFT MAZ0ROVBFJZZT -0.62 09/25/2024 4:28 PM EDT VYAIRE PFT FEV1_Pre%Pred 92 % % 09/25/2024 4:28 PM EDT VYAIRE PFT FEV1 PREDAUTH Mercedezjoel MOSLEY (2011) 09/25/2024 4:28 PM EDT VYAIRE PFT FEV1 Z-SCORE -0.62 09/25/2024 4:28 PM EDT VYAIRE PFT FEV1/FVC PRE 73.32 % 09/25/2024 4:28 PM EDT VYAIRE PFT TDI3OMLCBJW 81 09/25/2024 4:28 PM EDT VYAIRE PFT FEV1/FVC PRELLN 71 4:28 PM EDT VYAIRE PFT MLX7EKCNTBARDGDA -1.25 09/26/19 4:28 PM EDT VYAIRE PFT FKN1MOHGQA%PRED 91 % % 4:28 PM EDT VYAIRE PFT [id number] Ivonnejoel MOSLEY (2011) 09/25/2024 4:28 PM EDT VYAIRE PFT KET2NYSWFWWGO -1 09/25/2024 4:28 PM EDT VYAIRE PFT ICH75-44% PRE 1.73 L/s 09/25/2024 4:28 PM EDT VYAIRE PFT XGY45-84%_Pred 2.51 09/25/2024 4:28 PM EDT VYAIRE PFT UFG42-62% PRELLN 1.38 09/26/19 4:28 PM EDT VYAIRE PFT LAJ0367%PREZSCORE -1.08 025 4:28 PM EDT VYAIRE PFT NYO9456%PRE%PRED 69 % % 09/26/19 4:28 PM EDT VYAIRE PFT PMM0508%PREDAUTH Tylerdalia MOSLEY (2011) 09/25/2024 4:28 PM EDT VYAIRE PFT PEF PRE 6.46 L/s 09/25/2024 4:28 PM EDT VYAIRE PFT PEF PRED 6.35 09/25/2024 4:28 PM EDT VYAIRE PFT PEF PRELLN 4.87 09/25/2024 4:28 PM EDT VYAIRE PFT PEFPREZSCORE 0.12 09/25/2024 4:28 PM EDT VYAIRE PFT PEFPRE%PRED 102 % % 09/25/2024 4:28 PM EDT VYAIRE PFT PEF PREDAUTH ECCS (1992) 09/25/2024 4:28 PM EDT VYAIRE PFT FMGXMQNTGSFZENCD8GGJ 13.30 ml/(min* mmHg) 09/25/2024 4:28 PM EDT VYAIRE PFT DLCOSINGLEBREATH PRED 20.70 09/25/2024 4:28 PM EDT VYAIRE PFT DLCOSINGLEBREATH LLN 16.09 09/08 4:28 PM EDT VYAIRE PFT DLCOSINGLEBREATH Z-SCORE -2.83 09/25/2024 4:28 PM EDT VYAIRE PFT DLCOSINGLEBREATH % PRED 64.2 % 09/25/2024 4:28 PM EDT VYAIRE PFT DLCOSINGLEBREATH PREDAUT Stanojevic TLCO GLI (2020) 09/25/2024 4:28 PM EDT VYAIRE PFT DLCOSINGLEBREATH Z-SCORE -2.83 09/25/2024 4:28 PM EDT VYAIRE PFT FGXNAJEFOYZPMRYNG5KC E 13.88 ml/(min* mmHg) 09/25/2024 4:28 PM EDT VYAIRE PFT DLCOCSINGLEBREATH PRED 20.70 09/25/2024 4:28 PM EDT VYAIRE PFT DLCOCSINGLEBREATH LLN 16.09 09/25/2024 4:28 PM EDT VYAIRE PFT DLCOCSINGLEBREATH Z-SCORE -2.56 09/25/2024 4:28 PM EDT VYAIRE PFT DLCOCSINGLEBREATH % PRED 67.1 % 09/25/2024 4:28 PM EDT VYAIRE PFT DLCOCSINGLEBREATH PREDAUTH Stanojevic TLCO GLI (2019) 09/25/2024 4:28 PM EDT VYAIRE PFT VULEOL6BLK 2.90 ml/(min* mmHg*L) 09/25/2024 4:28 PM EDT VYAIRE PFT DLCOVAPRED 4.27 09/25/2024 4:28 PM EDT VYAIRE PFT DLCOVALLN 3.33 09/25/2024 4:28 PM EDT VYAIRE PFT DLCOVAZSCORE -2.47 09/25/2024 4:28 PM EDT VYAIRE PFT DLCOVA%PRED 68.0 % 09/25/2024 4:28 PM EDT VYAIRE PFT DLCOVAPREDAUTH Stanojevic TLCO GLI (2019) 09/25/2024 4:28 PM EDT VYAIRE PFT DLCOVAZSCORE -2.47 09/25/2024 4:28 PM EDT VYAIRE PFT FYRUBZBKI8IBQ 3.03 ml/(min* mmHg*L) 09/25/2024 4:28 PM EDT VYAIRE PFT DLCOC SB/VA PRED 4.27 09/26/19 4:28 PM EDT VYAIRE PFT DLCOC SB/VA LLN 3.33 4:28 PM EDT VYAIRE PFT DLCOC SB/VA Z-SCORE -2.21 09/25 4:28 PM EDT VYAIRE PFT DLCOC SB/VA % PRED 71.0 % 2024 4:28 PM EDT VYAIRE PFT DLCOC SB/VA PREDAUTH Stanojevic TLCO GLI (2019) 09/25/2024 4:28 PM EDT VYAIRE PFT DLCOC SB/VA Z-SCORE -2.21 09/25 4:28 PM EDT VYAIRE PFT YJSOMKRMNAZJGJ9DFB 4.58 L 2024 4:28 PM EDT VYAIRE PFT VASINGLEBREATH PRED 4.88 09/25 4:28 PM EDT VYAIRE PFT VASINGLEBREATH LLN 3.98 2024 4:28 PM EDT VYAIRE PFT VASINGLEBREATH Z-SCORE -0.52 09/25/2024 4:28 PM EDT VYAIRE PFT VASINGLEBREATH % PRED 94.0 % 09/25/2024 4:28 PM EDT VYAIRE PFT [facility]LEBREATH [facility] Stanojevic TLCO GLI (2019) 09/25/2024 4:28 PM EDT VYAIRE PFT VASINGLEBREATH Z-SCORE -0.52 09/25/2024 4:28 PM EDT VYAIRE PFT UXERIJZZWBKSBDQ4LJN 3.10 L 09/25 4:28 PM EDT VYAIRE [...] g(Hb)/dL 09/25/2024 4:28 PM EDT VYAIRE PFT ITZ5CUW 5.21 L 09/25/2024 4:28 PM EDT VYAIRE PFT TLCPRED 5.29 09/25/2024 4:28 PM EDT VYAIRE PFT TLCLLN 4.31 09/25/2024 4:28 PM EDT VYAIRE PFT TLCULN 6.37 09/25/2024 4:28 PM EDT VYAIRE PFT TLCZSCORE -0.12 09/25/2024 4:28 PM EDT VYAIRE PFT TLC%PRED 98.6 % 09/25/2024 4:28 PM EDT VYAIRE PFT TLCPREDAUT [facility] GLI (2019)__ 09/25/2024 4:28 [...] % 09/25/2024 4:28 PM EDT VYAIRE PFT ICPREDAUT [facility] volumes GLI (2019)__ 09/25/2024 4:28 PM EDT VYAIRE PFT JLHSAXAK5NSH 2.74 L 09/25/2024 4:28 PM EDT VYAIRE PFT FRCPLETH PRED 2.74 09/25/2024 4:28 PM EDT VYAIRE PFT FRCPLETH LLN 1.94 09/25/2024 4:28 PM EDT VYAIRE PFT FRCPLETH ULN 3.74 09/25/2024 4:28 PM EDT VYAIRE PFT FRCPLETH Z-SCORE 0.01 09/26/19 4:28 PM EDT VYAIRE PFT FRCPLETH % PRED 100.3 % 4:28 PM EDT VYAIRE PFT FRCPLETH PREDAUTH [facility] volumes GLI (2019)__ 09/25/2024 4:28 PM EDT VYAIRE PFT HUS6TLY 0.68 L 09/25/2024 4:28 PM EDT VYAIRE [...] % 09/25/2024 4:28 PM EDT VYAIRE PFT RVPREDAUT [facility] volumes GLI (2019)__ 09/25/2024 4:28 PM EDT VYAIRE PFT RV%RCY4WHI 38.52 % 09/25/2024 4:28 PM EDT VYAIRE PFT RV%TLCPRED 30 09/25/2024 4:28 PM EDT VYAIRE PFT RV%TLCLLN 19 09/25/2024 4:28 PM EDT VYAIRE PFT RV%TLCULN 41 09/25/2024 4:28 PM EDT VYAIRE PFT RV%TLCZSCORE 1.32 09/25/2024 4:28 PM EDT VYAIRE PFT RV%TLC%PRED 130.0 % 09/25/2024 4:28 PM EDT VYAIRE PFT RV%TLCPREDAUTH [facility] volumes GLI (2020)__ 09/25/2024 4:28 PM EDT VYAIRE PFT DEC9LJI 2.89 L 09/25/2024 4:28 PM EDT VYAIRE PFT Anatomical Region Laterality Modality PFT 09/25/2024 3:47 PM EDT Narrative 09/30/2024 8:27 AM EDT Pulmonary Function Testing Report Amita Ortiz 54 y.o. underwent pulmonary function testing today at the [facility]. The patient underwent spirometry, lung [...] There are no prior studies for comparison. Mk Pastrana MD PFT ORDERABLES Final Result * ECHO, ADULT TRANSTHORACIC COMPLETE W/ STRAIN, [...] WINDY ISCV RV s' Roberto 14.8 cm/s IWNDY ISCV TAPSE 28 mm WINDY ISCV PA acc time 130 msec WINDY ISCV mean PAP 21 mmHg WINDY ISCV MV dec slope 572 cm/s2 WINDY ISCV MV dec time 170 ms WINDY ISCV MV P1/2t 49 ms WINDY ISCV MVA(P1/2t) 4.5 cm2 WINDY ISCV Ao Root Diam 32 mm WINDY ISCV PA GA(ACCEL) 18.7 mmHg WINDY ISCV LV Lat e' [...] is no recent study available for direct ynqa-jm-gtan comparison. Left Ventricle The left ventricle is [...] is no recent study available for direct appb-cs-owlg comparison. us Mk Pastrana MD CV ECHO PROCEDURES Final Resu lt * XR Chest 2 Views (09/25/2024 1:31 [...] MD IMG XR PROCEDURES Final Resul t * ECG Adult (09/25/2024 10:38 AM EDT) EKG DIAGNOSIS CLASS Borderline Abnormal MUSE ECG Ventricular Rate 72 BPM MUSE ECG Atrial Rate 72 BPM MUSE ECG GA Interval 122 ms MUSE ECG QRSD Interval 64 ms MUSE ECG QT Interval 406 ms MUSE ECG QTC Interval 444 ms MUSE ECG P [place] 71 degrees MUSE ECG R [place] 54 degrees MUSE ECG T Wave [place] 87 degrees MUSE ECG Diagnosis Normal sinus rhythm MUSE ECG Diagnosis Low voltage QRS MUSE ECG Diagnosis Borderline ECG MUSE ECG Diagnosis MUSE ECG Diagnosis Confirmed by Arsalan Ko ([id number]) on 09/25/2024 11:05:04 AM MUSE ECG 09/25/2024 10:3 8 AM EDT 09/25/2024 11:05 AM EDT us Mk Pastrana MD ECG ORDERABLES Final Result MUSE ECG * Stanislaw Benedict Virus (EBV) Quantitative PCR (09/25/2024 10:23 AM EDT) Stanislaw Benedict Virus, Blood, Quant DNA Interpretation Not Detected Not Detected 10/01/2024 6:35 AM EDT [facility] Blood Venous blood specimen / Unknown Venipuncture / Unknown 09/25/2024 10:23 AM EDT 09/25/2024 10:34 AM EDT Narrative [facility] - 10/01/2024 6:35 AM EDT [...] developed and it's performance characteristics determined by [facility] as appropriate for clinical purposes. [...] developed and it's performance characteristics determined by [facility] as appropriate for clinical purposes. This assay has not been cleared or approved by the FDA, but is performed in a CLIA regulated laboratory that is qualified to perform high-complexity testing. Mk Pastrana MD LAB BLOOD ORDERABLES Final Re sult Performing Organization Address [facility]/ZIP Co de Phone Number [facility] [address] [place] [address] * (ABNORMAL) Creatinine Clearance, 24 Hour Urine (09/25/2024 10:23 AM EDT) Hours Of Collection 24 HRS 09/25/2024 11:25 AM EDT [facility] Urine, Volume 200 mL 09/25/2024 11:25 AM EDT [facility] Creatinine, Urine 201 mg/dL 09/25/2024 11:25 AM EDT [facility] Creatinine, Plasma 0.65 0.60 - 1.10 mg/dL 09/25/2024 11:25 AM EDT [facility] Creatinine Clearance 42.95(L) 66.00 - 108.00 mL/min 09/25/2024 11:25 AM EDT [facility] Creatinine per day, Urine 402(L) 500 - 1,600 mg/d 09/25/2024 11:25 AM EDT [facility] Urine Urine specimen obtained by clean catch procedure / Unknown Non-blood Collection / Unknown 09/25/2024 10:23 AM EDT 09/25/2024 10:24 AM EDT Mk Pastrana MD LAB URINE ORDERABLES Final Re sult Performing Organization Address City/[facility]/ZIP Co de Phone Number [facility] [address] [place] [address] * ABO/Rh Type (09/25/2024 10:23 AM EDT) ABO/Rh AB Positive 09/25/2024 10:12 AM EDT [facility] Blood Venous blood specimen / Unknown Venipuncture / Unknown 09/25/2024 10:23 AM EDT 09/25/2024 10:39 AM EDT Mk Pastrana MD LAB BLOOD BANK TEST ORDERABLE S Final Result BLOOD BANK [address] [place] [address], * Creatinine, Plasma (09/25/2024 10:23 AM EDT) Pathologist [facility] Creatinine, Plasma 0.65 0.60 - 1.10 mg/dL 09/25/2024 11:17 AM EDT [facility] eGFRcr 106.1 mL/min/1.7 3m*2 09/25/2024 11:17 AM EDT [facility] Comment:Reported eGFRcr in m L/min/1.73m2 is based the CKD-EPI 2020 equation that does not use a race coefficient. Blood Venous blood specimen / Unknown Venipuncture / Unknown 09/25/2024 10:23 AM EDT 09/25/2024 10:34 AM EDT Mk Pastrana MD LAB BLOOD ORDERABLES Final Re sult [facility] [address] [place] [address] * Toxoplasma gondii antibody, IgG (09/25/2024 10:23 AM EDT) [facility] TOXOPLASMA IGG AB 3.7 <=8.8 IU/mL 09/27/2024 1:29 AM EDT [facility] Blood Venous blood specimen / Unknown Venipuncture / Unknown 09/25/2024 10:23 AM EDT 09/25/2024 10:34 AM EDT Narrative [facility] ([place] - 09/27/2024 1:29 AM EDT INTERPRETIVE INFORMATION: [...] the amount of antibody present. Performed By: [facility] [address] [place] [address] Executive Vp: Sunil Gomez MD, PhD CLIA Number: [id number] Mk Pastrana MD LAB BLOOD ORDERABLES Final Re sult [facility] ([place]) [address] [place] [address] * APTT (09/25/2024 10:23 AM EDT) aPTT 28 25 - 35 sec LAB COAGULATION METHOD 09/25/2024 11:00 AM EDT [facility] Blood Venous blood specimen / Unknown Venipuncture / Unknown 09/25/2024 10:23 AM EDT 09/25/2024 10:34 AM EDT Mk Pastrana MD LAB BLOOD ORDERABLES Final Re sult [facility] [address] [place] [address] * Prothrombin Time/INR (09/25/2024 10:23 AM EDT) Prothrombin Time 12.7 12.0 - 14.3 sec LAB COAGULATION METHOD 09/25/2024 11:00 AM EDT [facility] INR 0.9 0.9 - 1.1 LAB COAGULATION METHOD 09/25/2024 11:00 AM EDT [facility] Blood Venous blood specimen / Unknown Venipuncture / Unknown 09/25/2024 10:23 AM EDT 09/25/2024 10:34 AM EDT Narrative [facility] - 09/25/2024 11:00 AM EDT OPTIMAL INR RANGES FOR PATIENT ON ORAL ANTICOAGULANT THERAPY Prevention of venous thromboembolism INR 2.0 to 3.0 In patients with heart disease: Atrial fibrillation INR 2.0 to 3.0 Valvular heart disease INR 2.0 to 3.0 Tissue heart valves INR 2.0 to 3.0 Mechanical prosthetic valves INR 2.5 to 3.5 Prevention of recurrent NV INR 2.5 to 3.5 Mk Pastrana MD LAB BLOOD ORDERABLES Final Re sult Performing Organization Address City/[facility]/ZIP Co de Phone Number [facility] [address] [place] [address] * Thyroid Stimulating Hormone, Plasma (09/25/2024 10:23 AM EDT) Thyroid Stimulating Hormone, Plasma 1.01 0.40 - 4.20 uIU/mL 09/25/2024 11:17 AM EDT [facility] Blood Venous blood specimen / Unknown Venipuncture / Unknown 09/25/2024 10:23 AM EDT 09/25/2024 10:34 AM EDT Narrative [facility] - 09/25/2024 11:17 AM EDT Trimester Specific Ranges TSH ( IU/mL) 1st Trimester 0.1 - 3.0 2nd Trimester 0.19 - 4.06 3rd Trimester 0.3 - 3.7 Mk Pastrana MD LAB BLOOD ORDERABLES Final Re sult Performing Organization Address [facility] [place] [address] * (ABNORMAL) Ferritin (09/25/2024 10:23 AM EDT) Ferritin, Serum 294(H) 13 - 150 ng/mL 09/25/2024 11:17 AM EDT [facility] Blood Venous blood specimen / Unknown Venipuncture / Unknown 09/25/2024 10:23 AM EDT 09/25/2024 10:35 AM EDT Mk Pastrana MD LAB BLOOD ORDERABLES Final Re sult Performing Organization Address City/[facility]/ZIP Co de Phone Number [facility] [address] [place] [address] * Transfuse platelets, Irradiated (09/10/2024 4:03 PM EDT) us Bhavana Bella APRN BLOOD TRANSFUSION ORDERABL ES Final Result * (ABNORMAL) Platelet Count, Blood (09/10/2024 3:41 PM EDT) [facility] Platelet Count 56(L) 155 - 369 10*3/uL LAB HEMATOLOGY METHOD 09/10/2024 3:45 PM EDT [facility] Blood Venous blood specimen / Unknown Venipuncture / Unknown 09/10/2024 3:41 PM EDT 09/10/2024 3:43 PM EDT us Bhavana Bella APRN LAB BLOOD ORDERABLES Final Result Performing Organization Address City/[facility] Co de Phone Number [facility] [address] [place] [address] * Prepare Leukocyte Reduced Platelets: 1 Units, Irradiated, Leukoreduced (09/10/2024 2:06 PM EDT) [facility] Product Code [id number] CH BLOO D BANK Dispense Status Transfused BLOOD BANK Blood Expiration Date [id number] BLOOD BANK Unit Number [id number] CH B LOOD BANK Product Blood Type 6200 BLOOD BANK Blood Type A+ BLOOD BANK Blood Venous blood specimen / Unknown Bhavana Bella APRN BLOOD BANK PRODUCT ORDERAB LES Final Result Performing Organization Address [facility] de Phone Number BLOOD BANK [address] [place] [address], * (ABNORMAL) Quant Detection of BCR-ABL1 Major (p210) (SO) (09/10/2024 11:12 AM EDT) Only the most recent of3 resultswithin the time period is included. [facility] Quant BCR-ABL1, Major (p210), Source Whole Blood 09/17/2024 9:43 AM EDT [facility]) Quant BCR-ABL1, Major (p210), Result Detected(A ) 09/17/2024 9:43 AM EDT [facility] ([place]) Quant BCR-ABL1, Major (p210), IS Percent 20.4857 % 09/17/2024 9:43 AM EDT [facility]) Quant BCR-ABL1, Major (p210), EER See Note 09/17/2024 9:43 AM EDT [facility] ([place]) Blood Venous blood specimen / Unknown Venipuncture / Unknown 09/10/2024 11:12 AM EDT 09/10/2024 11:39 AM EDT Narrative [facility] ([place]) - 09/17/2024 9:43 AM EDT [...] (IS; see Zhu MC, et al. Leukemia. 2009;23:1101-2581). METHODOLOGY: Total RNA was isolated and converted [...] CML patients (Ashlee CHÁVEZ, et al. NEJM. 2003;349:0494-6993). ANALYTICAL SENSITIVITY: Limit of quantification: 0.0032 percent [...] developed and its performance characteristics determined by [facility]. It has not been cleared or approved by the U.S. Food and Drug Administration. This test was performed in a CLIA-certified laboratory and is intended for clinical purposes. Authorized individuals can access the [facility] Report with an [facility] Connect account using the following link. Your local lab can assist you in obtaining the patient report if you don't have a Connect account. [email or web address] Performed By: [facility] [address] [place] [address] Executive Vp: Sunil Gomez MD, PhD CLIA Number: [id number] Elena Smith [facility] BLOOD ORDERABLES Final Res ult Performing Organization Address City/[facility] Co de Phone Number [facility] [address] [place] [address] * Phosphorus, Plasma (09/10/2024 11:12 AM EDT) Only the most recent of3 resultswithin the time period is included. Phosphorus, Plasma 3.8 2.5 - 4.5 mg/dL 09/10/2024 12:10 PM EDT [facility] Blood Venous blood specimen / Unknown Venipuncture / Unknown 09/10/2024 11:12 AM EDT 09/10/2024 11:35 AM EDT Elena Smith [employer] [facility] BLOOD ORDERABLES Final Res ult Performing Organization Address City/[facility]/ZIP Co de Phone Number [facility] [address] [place] [address] * Magnesium, Plasma (09/10/2024 11:12 AM EDT) Only the most recent of3 resultswithin the time period is included. Magnesium, Plasma 2.1 1.9 - 2.4 mg/dL 09/10/2024 12:10 PM EDT [facility] Blood Venous blood specimen / Unknown Venipuncture / Unknown 09/10/2024 11:12 AM EDT 09/10/2024 11:35 AM EDT us Elena Ledezma [facility] BLOOD ORDERABLES Final Res ult [facility] [address] [place] [address] * US Abdomen Focused Region Liver, Spleen [...] ( e 7 mm) - Surgical consult. https://pubs.rsna.org/doi/abs/10.1148/radiol.016476. CRITICAL RESULT: No. COMMUNICATION: Per this written [...] - Size - 4 mm Morphology: Pedunculated eluw-gz-hlk-wall or thin stalk Focal adjacent wall thickening >4mm: not present Polyp # 2 - Size - 4 mm Morphology: Pedunculated oaka-hv-vum-wall or thin stalk Focal adjacent wall thickening [...] - Size - 4 mm Morphology: Pedunculated oeox-ed-zuw-wall or thin stalk Focal adjacent wall thickening >4mm: not present Polyp # 2 - Size - 4 mm Morphology: Pedunculated dirl-ks-jvd-wall or thin stalk Focal adjacent wall thickening [...] ( e 7 mm) - Surgical consult. https://pubs.rsna.org/doi/abs/10.1148/radiol.822850. CRITICAL RESULT: No. COMMUNICATION: Per this written report. By electronically signing this report, I, the attending physician, attestthat I have personally reviewed the images/data for the aboveexamination(s) and agree with the final edited report. Drafted by Yovanny Guillaume MD on 08/28/2024 9:02 AM Final report signed by Mariza Koo MD on 08/28/2024 9:17 AM us Mk aPstrana MD IM US PROCEDURES Final Resul t * HIV 1 & 2 Antibody/Antigen Screen (04/30/2024 12:49 PM EST) HIV 1 & 2 Antibody/Antigen Screen Non Reactive Non Reactive 04/30/2024 2:08 PM EST [facility] Comment:Screening for HIV 1 & 2 antibodies, and P24 antigen is NONREACTIVE. No confirmatory testing is required. Blood Venous blood specimen / Unknown Venipuncture / Unknown 04/30/2024 12:49 PM EST 04/30/2024 1:26 PM EST Mk Pastrana MD LAB BLOOD ORDERABLES Final Re sult Performing Organization Address [facility] Co de Phone Number [facility] [address] [place] [address] * (ABNORMAL) Hepatitis C antibody (04/30/2024 12:49 PM EST) Hepatitis C Antibody Positive( A) Negative 04/30/2024 2:16 PM EST [facility] Comment:This specimen is heidi ng sent for confirmation by RT-PCR. Blood Venous blood specimen / Unknown Venipuncture / Unknown 04/30/2024 12:49 PM EST 04/30/2024 1:27 PM EST Mk Pastrana MD LAB BLOOD ORDERABLES Final Re sult Performing Organization Address [facility] Co de Phone Number [facility] [address] [place] [address] from Last 3 Months or Most Recently Relevant to Health Maintenance Insurance [facility] MED[facility]ID [facility] MEDICAID Care Teams Tire Tester Relationship Specialty Start Date End Date Willi Frost MD [address] [place] [address] PCP - General 06/11/24
--- OUTSIDE RECORDS SUMMARY | 2024-10-15 12:36 | XMS_ITS | Encounter Summary ---
Author Organization [facility] Address [address] [place] [address] Care Team Providers Care Bundle Sorter Name Role Phone Willi Frost MD Primary Care Provider Encounter Details Date Type Department Care Team (Late Contact Info) Description 10/14/2024 Lab Requisition [facility] [address] [place] [address] Moises Estrada MD [address] [place] [address] General medical exam Social History Tobacco Use [...] Hematology/BMT and Cellular Therapy Program [address] [place] [phone] 10/30/2024 8:30 AM EDT Office Visit [facility]/BMT and Cellular Therapy Program [address] [place] [address] Radha Morelos, UPHOLSTERY SEWER [address] [facility] [address] [place] [phone] 11/13/2024 1:00 PM EDT Office Visit [facility] [address] [facility] [place] [address] Verena Montes PA [address] [place] [address] 11/27/2024 1:30 PM EDT Clinical Support [facility]ematology/BMT and Cellular Therapy Program [address] [place] [phone] 11/27/2024 2:00 PM EDT Office Visit [facility]/BMT and Cellular Therapy Program [address] [phone] Mk Pastrana MD [address] [facility] [address] [place] [phone] documented as of this encounter Procedures Procedure Name Priority Date/Time Associated Diagnosis Comments BILL ONLY ISOAGGLUTININ TITER Routine 10/07/2024 10:00 AM EDT General medical exam BILL ONLY TYPE & SCREEN Routine 10/08/19 10:00 AM EDT General medical exam documented in this encounter Results * Bill Only Type & Screen (10/07/2024 10:00 AM EDT) [facility] Only ([facility] Bank Lab Only) 10/07/2024 10:00 AM EDT 10/14/2024 7:26 AM EDT us Moises Estrada MD LAB BLOOD BANK TEST ORDERAB LES Final Result BLOOD BANK [address] [place] [address], * Bill Only Isoagglutinin Titer (10/07/2024 10:00 AM EDT) [facility] Only ([facility] Lab Only) 10/07/2024 10:00 AM EDT 10/14/2024 7:26 AM EDT us Moises Estrada MD LAB BLOOD BANK TEST ORDERAB LES Final Result Performing Organization Address City/State/[facility] Co de Phone Number BLOOD BANK [address] documented in this encounter Visit Diagnoses Diagnosis General medical exam Unspecified general medical examination documented in this encounter Additional Health Concerns Assessment Noted Time A Body Mass Index follow-up plan has been documented for the patient 09/11/2024 6:12 PM EDT documented as of this encounter Care Teams Bundle Sorter Relationship Specialty Start Date End Date Willi Frost MD [address] [place] [address] [address] [place] [address] PCP - General 06/11/24 documented as of this encounter
--- OUTSIDE RECORDS SUMMARY | 2024-10-15 12:36 | XMS_ITS | Data Portability ---
Author Organization [facility] [place] Address [address] [place] [phone] Care Team Providers Care Deputy Controller Name Role Phone ABBY WILLI Primary Care Provider [phone] Assessment No assessment recorded. Plan of Treatment Reminders Order Date Submit Date Provider Last Modified By Organization Details Last Modified Time Details Appointments None recorded. Lab CBC w/ auto diff 2023 024 [facility], [address] , [place], [address], 4 16:14:22 CMP, serum or plasma 2023 024 [facility], [address] , [place], [address], 4 17:21:27 bcr/alb1, quantitativ e PCR, blood or tissue 2023 024 [facility], [address] , [place], [address], 4 15:13:41 TSH, serum or plasma 2023 024 [email or web address] 6 [facility], [address] , [place], [address], 4 09:21:29 Referral oncologist referral - 53 yo new patient with CML diagnosed in June 2023, currently on Tasigna 2023 024 [email or web address] 3 Fredrick Bateman MD, [address], [address] [place], [address], 4 14:47:33 Procedures None recorded. Surgeries None recorded. Imaging None recorded. Medication Orders oxycodone 5 mg tablet 2023 024 [facility], [address], [address], 4 14:53:21 ondansetron HCl 8 mg tablet 2023 024 [facility], [address], [address], 4 14:53:19 Tasigna 150 mg capsule 2023 CLARE [facility] RESIDENT DOCTOR [id number], [address] [facility], [address], [place], [address], 4 15:02:18 nicotine 21 mg/24 hr daily transdermal patch [email or web address] [place] [address] Pharmacy 571, [address] [place], [address], 4 22:59:29 Patient TargetsNo targets recorded. Patient InstructionsNo instructions recorded. Reason for Referral 53 yo new patient with CML d iagnosed in June 2023, currently on Tasigna Referring Physician: Willi Frsot, Family Medicine, Encounter Date: 10/10/2023 Results Created Date Observation Date Name Description Value Unit Range Abnormal Flag Note LastModifiedBy Organization Detail LastModifiedTime 10/25/1910/25/2023 CBC AUTO W DIFF WBC 9.6 K/uL 4.0-10 .5 Not Available [facility] ([facility]) [address], [place], [address], 10/25/2023 16:14:22 10/25/19 24 10/25/2023 CBC AUTO W DIFF RBC 4.5 M/mm3 4.2-6. 4 Not Available [facility] ([facility]) [address], [place], [address], 10/25/2023 16:14:22 10/25/19 24 10/25/2023 CBC AUTO W DIFF HGB 12.2 gm/dL 12.5-1 6.0 low Not Available [facility] ([facility]) [address], [place], [address], 10/25/2023 16:14:22 10/25/19 24 10/25/2023 CBC AUTO W DIFF HCT 39.1 % 37.0-4 7.0 Not Available [facility] ([facility]) [address], [place], [address], 10/25/2023 16:14:22 10/25/19 24 10/25/2023 CBC AUTO W DIFF MCV 87.3 fL 78-100 Not Available [facility] ([facility]) [address], [place], [address], 10/25/2023 16:14:22 10/25/19 24 10/25/2023 CBC AUTO W DIFF MCH 27.2 pg 27-31 Not Available [facility] ([facility]) [address] , [place], [address], 10/25/2023 16:14:22 10/25/19 24 10/25/2023 CBC AUTO W DIFF MCHC 31.2 g/dL 32-36 low Not Available [facility] ([facility]) [address], [place], [address], 10/25/2023 16:14:22 10/25/19 24 10/25/2023 CBC AUTO W DIFF RDW 15.6 % 11.5-1 4.0 high Not Available [facility] ([facility]) [address] , [place], [address], 10/25/2023 16:14:22 10/25/19 24 10/25/2023 CBC AUTO W DIFF platelet count 402 K/uL 150-45 0 Not Available [facility] ([facility]) [address] , [place], [address], 10/25/2023 16:14:22 10/25/19 24 10/25/2023 CBC AUTO W DIFF MPV 12.3 fL 6-9.5 high Not Available [facility] ([facility]) [address] [place], [address], 10/25/2023 16:14:22 10/25/19 24 10/25/2023 CBC AUTO W DIFF neutrophil% 67.6 % 43-65 high Not Available [facility] ([facility]) [address], [place], [address], 10/25/2023 16:14:22 10/25/19 24 10/25/2023 CBC AUTO W DIFF lymphocyte% 21.7 % 20.5-4 5.5 Not Available [facility] ([facility]) [address] [place], [address], 10/25/2023 16:14:22 10/25/19 24 10/25/2023 CBC AUTO W DIFF monocyte% 3.6 % 5.5-11 .7 low Not Available [facility] ([facility]) [address] [place], [address], 10/25/2023 16:14:22 10/25/19 24 10/25/2023 CBC AUTO W DIFF eosinophil% 3.6 % 0.9-2. 9 high Not Available [facility] ([facility]) [address] [place], [address], 10/25/2023 16:14:22 10/25/19 24 10/25/2023 CBC AUTO W DIFF basophil% 2.5 % 0.2-1. 0 high Not Available [facility] ([facility]) [address] [place], [address], 10/25/2023 16:14:22 10/25/19 24 10/25/2023 CBC AUTO W DIFF immature granulocytes % 1.0 % 0.0-0. 8 high Not Available [facility] ([facility]) [address] [facility], [place], [address], 10/25/2023 16:14:22 10/25/19 24 10/25/2023 CBC AUTO W DIFF nucleated red blood cells % 0.0 % Not Available [facility] ([facility]) [address] [facility], [place], [address], 10/25/2023 16:14:22 10/25/19 24 10/25/2023 CBC AUTO W DIFF neutrophil# 6.5 K/uL 2.2-4. 8 high Not Available [facility] ([facility]) [address] [facility], [place], [address], 10/25/2023 16:14:22 10/25/19 24 10/25/2023 CBC AUTO W DIFF lymphocyte# 2.1 cell/ mcL 1.3-2. 9 Not Available [facility] ([facility]) [address] [facility] [facility], [place], [address], 10/25/2023 16:14:22 10/25/19 24 10/25/2023 CBC AUTO W DIFF monocyte# 0.4 cell/ mcL 0.3-0. 8 Not Available [facility] ([facility]) [address] [place], [address], 10/25/2023 16:14:22 10/25/19 24 10/25/2023 CBC AUTO W DIFF eosinophil# 0.4 cell/ mcL 0-0.2 high Not Available [facility] ([facility]) [address] [facility], [place], [address], 10/25/2023 16:14:22 10/25/19 24 10/25/2023 CBC AUTO W DIFF basophil# 0.2 cell/ mcL 0.0-1. 0 Not Available [facility] ([facility]) [address], [place], [address], 10/25/2023 16:14:22 10/25/19 24 10/25/2023 CBC AUTO W DIFF immature gramulocytes # 0.10 K/uL Not Available [facility] ([facility]) [address] , [place], [address], 10/25/2023 16:14:22 10/25/19 24 10/25/2023 CBC AUTO W DIFF nucleated red blood cells # 0.00 K/uL Not Available [facility] ([facility]) [address] , [place], [address], 10/25/2023 16:14:22 10/25/19 24 10/25/2023 CBC AUTO W DIFF manual differential NO Not Available [facility] ([facility]) [address] , [place], [address], 10/25/2023 16:14:22 10/25/19 24 10/25/2023 COMP METAB OLIC PANEL sodium 141 mmol/ L 136-14 5 Not Available [facility] ([facility]) [address] , [place], [address], 10/25/2023 17:21:27 10/25/19 24 10/25/2023 COMP METAB OLIC PANEL potassium 4.3 mmol/ L 3.6-5. 0 Not Available [facility] ([facility]) [address] , [place], [address], 10/25/2023 17:21:27 10/25/19 24 10/25/2023 COMP METAB OLIC PANEL chloride 105 mmol/ L 98-107 Not Available [facility] ([facility]) [address] , [place], [address], 10/25/2023 17:21:27 10/25/19 24 10/25/2023 COMP METAB OLIC PANEL carbon dioxide 25.8 mmol/ L 21.0-3 2.0 Not Available [facility] ([facility]) [address] , [place], [address], 10/25/2023 17:21:27 10/25/19 24 10/25/2023 COMP METAB OLIC PANEL anion gap 14.5 Not Available [facility] ([facility]) [address] , [place], [address], 10/25/2023 17:21:27 10/25/19 24 10/25/2023 COMP METAB OLIC PANEL glucose 83 mg/dL 70-120 Not Available [facility] ([facility]) [address] , [place], [address], 10/25/2023 17:21:27 10/25/19 24 10/25/2023 COMP METAB OLIC PANEL BUN 14 mg/dL 7-18 Not Available [facility] ([facility]) [address] , [place], [address], 10/25/2023 17:21:27 10/25/19 24 10/25/2023 COMP METAB OLIC PANEL creatinine 0.9 mg/dL 0.6-1. 3 Not Available [facility] ([facility]) [address] , [place], [address], 10/25/2023 17:21:27 10/25/19 24 10/25/2023 COMP METAB OLIC PANEL glomerular filtration rate >60 mlper min 60- Not Available [facility] ([facility]) [address] , [place], [address], 10/25/2023 17:21:27 10/25/19 24 10/25/2023 COMP METAB OLIC PANEL total protein 6.9 g/dL 6.4-8. 2 Not Available [facility] ([facility]) [address], [place], [address], 10/25/2023 17:21:27 10/25/19 24 10/25/2023 COMP METAB OLIC PANEL albumin 3.7 g/dL 3.4-5. 0 Not Available [facility] ([facility]) [address], [place], [address], 10/25/2023 17:21:27 10/25/19 24 10/25/2023 COMP METAB OLIC PANEL globulin 3.2 Not Available [facility] ([facility]) [address], [place], [address], 10/25/2023 17:21:27 10/25/19 24 10/25/2023 COMP METAB OLIC PANEL alb/glob ratio 1.2 0.7-2 Not Available [facility] ([facility]) [address], [place], [address], 10/25/2023 17:21:27 10/25/19 24 10/25/2023 COMP METAB OLIC PANEL calcium 8.7 mg/dL 8.5-10 .5 Not Available [facility] ([facility]) [address], [place], [address], 10/25/2023 17:21:27 10/25/19 24 10/25/2023 COMP METAB OLIC PANEL bilirubin total 0.70 mg/dL 0.10-1 .00 Not Available [facility] ([facility]) [address], [place], [address], 10/25/2023 17:21:27 10/25/19 24 10/25/2023 COMP METAB OLIC PANEL AST (SGOT) 19 U/L 0-37 Not Available [facility] ([facility]) [address] , [place], [address], 10/25/2023 17:21:27 10/25/19 24 10/25/2023 COMP METAB OLIC PANEL ALT (SGPT) 50 U/L 0-65 Not Available [facility] ([facility]) [address], [place], [address], 10/25/2023 17:21:27 10/25/19 24 10/25/2023 COMP METAB OLIC PANEL alk phosphatase 118 U/L 46-116 high Not Available [facility] ([facility]) [address], [place], [address], 10/25/2023 17:21:27 10/25/19 24 10/25/2023 THYRO ID STIMU LATIN G HORMO NE thyroid stim hormone 2.45 mIU/L 0.36-3 .74 Not Available [facility] ([facility]) [address], [place], [address], 10/25/2023 17:22:32 10/25/19 24 11/01/2023 BCR-A BL1 RT-PC R methodology: Commen t . Total RNA is isola vanessa [...] e see cteri stics deter mined by Etherios rp. It has not been clear ed or appro mago by the Food and Drug Admin istra tion. Not Available [facility] ([facility]) [address] [facility], [place], [address], 11/01/2023 15:12:50 10/25/19 24 11/01/2023 BCR-A BL1 RT-PC R interpretati on: Positi ve delta POSIT JEANNIE for the BCR-A BL1 e13a2 (b2a2 , p210) , e14a2 (b3a2 , p210) and e1a2 (p190 ) fusio n trans cript s. Not Available [facility] ([facility]) [address] [facility], [place], [address], 11/01/2023 15:12:50 10/25/19 24 11/01/2023 BCR-A BL1 RT-PC R b2a2 transcript 26.978 8 % Not Available [facility] ([facility]) [address] [facility], [place], [address], 11/01/2023 15:12:50 10/25/19 24 11/01/2023 BCR-A BL1 RT-PC R b3a2 transcript 17.658 1 % Not Available [facility] ([facility]) [address] [facility], [place], [address], 11/01/2023 15:12:50 10/25/19 24 11/01/2023 BCR-A BL1 RT-PC R e1a2 transcript 0.0403 % Not Available [facility] ([facility]) [address] [facility], [place], [address], 11/01/2023 15:12:50 10/25/19 24 11/01/2023 BCR-A BL1 RT-PC R pdf image . Perfo rmed at: [facility] [employer] [place] [address], [place] [address] Lab Direc tor: Finn Arguello [facility] , Phone : [phone] Perfo rmed at: [facility] [place] [address] , [place] [address] Lab Direc tor: Finn Slaterchelsie [facility] , Phone : [phone] Not Available [facility] ([facility]) [address], [place], [address], 11/01/2023 15:12:50 10/25/19 24 11/01/2023 BCR-A BL1 RT-PC R background Stephanie linda [...] to a 3-log reduc tion. Resul ts milagrosul d be corre lated with appro priat e clini maria luz and labor atory infor matio n as indic ated. Not Available [facility] ([facility]) [address], [place], [address], 11/01/2023 15:12:50 10/25/19 24 11/01/2023 BCR-A BL1 RT-PC R director review: Stephanie Duque, PhD, FAC Direc tor, [facility] [place] [address] [phone] Not Available [facility] ([facility]) [address], [place], [address], 11/01/2023 15:12:50 Result Notes None recorded. Procedures Surgical History Date Name Laterality Status Provider Name and Address Organization Details Recorded Time graft of skin to skin completed Sonia Evans [place] - [facility] [place] 10/10/2023 13:32:25 ligation of fallopian tube completed Sonia Robertsson [place] - [facility] [place] 10/10/2023 13:32:31 Imaging Results None recorded. Procedure [...] blood by Pulse oximetry Heart rate Systolic And Diastolic Provider Name and Address Organization Details Last Updated DateTime 4 165.1 cm 19.6 kg/m2 52596.1 1 g 97.9 [degF] 96 % 96 % 91 /min 138/81 mm[Hg] Sonia Evans [facility] [place] 4 13:36:43 Date Recorded Body height Body mass index (BMI) Body weight Body temperature Oxygen saturation Oxygen saturation in Arterial blood by Pulse oximetry Heart rate Systolic And Diastolic Provider Name and Address Organization Details Last Updated DateTime 4 165.1 cm 20.3 kg/m2 14633.5 5 g 97.7 [degF] 96 % 96 % 82 /min 124/80 mm[Hg] Lisy Pereira [facility] [place] 4 14:27:54 Date Recorded Body height Body mass index (BMI) Body weight Body temperature Oxygen saturation Oxygen saturation in Arterial blood by Pulse oximetry Heart rate Systolic And Diastolic Provider Name and Address Organization Details Last Updated DateTime 4 165.1 cm 20.8 kg/m2 50580.0 5 g 98 [degF] 100 % 100 % 89 /min 128/84 mm[Hg] Lori Napoles [facility] [place] 4 13:32:59 Social History Question Answer Notes LastModified by Organizat ion Details LastModified Time Tobacco Smoking Status Current Every Day Smoker 4-5 cigs a day Lisy Pereira [facility] [place] 10/25/2023 14:25:32 What Is Your Level Of Caffeine Consumption? Heavy [email or web address] Information not available 10/10/2023 What Is Your Current Pack Years? 30ormorepack years [email or web address] Information not available 10/10/2023 At What Age Did You Start Smoking Tobacco? 10 [email or web address] Information not available 10/10/2023 How Much Tobacco Do You Smoke? 1 PPD [email or web address] Information not available 10/10/2023 Has Tobacco Cessation Counseling Been Provided? No [email or web address] Information not available 10/10/2023 How Many Years Have You Smoked Tobacco? 48 [email or web address] Information not available 10/10/2023 Sex: Unknown Functional Status Question Answer Note LastModified by Organizat ion Details LastModified Time Do you use any illicit or recreational drugs? No [email or web address] Information not available 10/25/2023 Do you or have you ever used any other forms of tobacco or nicotine? No [email or web address] Information not available 10/10/2023 What is your level of alcohol consumption? None [email or web address] Information not available 10/10/2023 Mental Status None [...] SNOMED-CT Code Diagnosis ICD10 Code Diagnosis Note [id number] Willi Frost MD [facility] [address] [place] [address] 10/10/2023 13:08:23 10/10/2023 13:55:46 Chronic myeloid leukemia [id number] C92.Z0 Currently on Tasigna. I will refer her to Dr. 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 Script to be sent in for the 21 mg daily patch which she can use for a month or 2 if needed. She will call when she is ready to taper down to the 14 mg daily [id number] Fredrick Bateman MD [facility] [address] [facility] [address] [place] [address] 10/25/2023 14:03:28 10/25/2023 15:23:53 Chronic myeloid leukemia [id number] C92.10 Patient was diagnosed in [place] with chronic myeloid leukemia in early 2023. [...] fade in frequency and likely improve Splenomegaly 95472781 R1 6.1 initially diagnosed with CML and found to have massive splenomega ly. On exam on October 25, 2023 spleen is normal in size. Mild left upper quadrant discomfort . Likely from capsular stretch. Continue with as needed pain medication . Discussed weaning of pain medication as proceeding further on oral therapy. Pain due t o neoplastic disease [id number] 9102 G89.3 Mild left upper quadrant discomfort . Likely from capsular stretch. Continue with as needed pain medication . Discussed weaning of pain medication as proceeding further on oral therapy. Nausea [id number] R11.0 as needed zofran prescribed . [id number] Willi Frost MD [facility] [address] [place] [address] 01/15/2024 13:26:12 01/15/2024 14:04:24 Intermittent pain [id number] R52 I am unsure how much of this is related to her cancer or cancer treatment. I explained to her she could call and speak with a physician online about getting a medical marijuana card which might be helpful for her or simply using THC gummies. Tobacco de pendence syndrome [id number] F17.200 recommend she rededicate herself and get [...] 75 mg daily or not Depressive disorder 5443 7431 F32.A currently on citalopram 20 mg daily. This was originally written by Dr. Bateman who patient is no longer seeing. I can resume writing this if need be. Chronic my eloid leukemia [id number] C92.Z0 Currently on Tasigna and seeing Dr. Armendariz in [place]. Depending on her upcoming visit with him she may want to see a different oncologist . If so she will need to provide the name of 1 or we will simply refer her to [facility]. Health Concerns Section Related Observation LastModified by Organization Detsarah ls LastModified Time None Recorded Concern Status LastModified by Organization Details LastModified Time None Recorded Advance Directives Directive None Recorded Payers Insurance Date Sequence Insurance Name Policy Number Policy Galloway Covered Member ID Galloway Member ID Guarantor Name 07/13/2024 1 [facility] (MEDICAID REPLACEMENT - HMO) Amita Angel [id number] Amita Ortiz Notes Date Note Type Note Provider Name and Address Organization Details Recorded Time 10/10/2023 text/html 53 yo WF present s to establish care. Just moved here from [place]. Living with daughter who accompanies her today. Has a h/o CML, diagnosed in june 2023, currently being treated with Tasigna. Needs a local oncologist.Currentl y, retired from [employer]-trying to get disability, smoker-1/2-1 ppd, non-drinker. He is also interested in quitting smoking and asked for a prescription for a nicotine patch which she said she was wearing in the hospital and doing well with. Willi Frost MD [id number] [facility], [place], [address], [facility] [place] [facility] [place] 10/10/2023 23:00:54 10/25/2023 text/html 53 yo F Presents for evaluation chronic myeloid leukemia. Patient was diagnosed in [place] with chronic myeloid leukemia in early 2023. [...] capsules taken p.o. b.i.d. for newly diagnosed Routt chromosome positive CML. Patient recently relocated to the area. Discussed with patient continuation of current dosing of Tasigna. Will follow-up labs today. Patient reports still having left upper quadrant discomfort due to prior splenomegaly. This is not uncommon following massive splenomegaly in the setting of diagnosis. Usually will fade in frequency and likely improve Fredrick Bateman MD [address], [place], [address], [facility] - [facility] [place] 10/25/2023 15:20:25 01/15/2024 text/html Pt presents for F/U. Has seen Dr. Armendariz-oncologist in [facility] . Apparently got upset with Dr. Bateman's [...] sounds like nicotine pouches. Willi Frost MD [address], [place], [address], [facility] - [facility] [place] 01/16/2024 13:10:37 OBGyn Episode No OBEpisode recorded.
--- OUTSIDE RECORDS SUMMARY | 2024-10-15 12:36 | XMS_ITS | Encounter Summary ---
Author Organization [facility] Address [address] [place] [address] Care Team Providers Care Body Designer Name Role Phone Willi Frost MD Primary Care Provider Encounter Details Date Type Department Care Team ([facility] Contact Info) Description 10/04/2024 Lab Requisition [facility] H [facility] [address] [place] [phone] Dary Vincent, MANUFACTURING MAINTENANCE TECHNICIAN 800 [facility] [address] [place] [phone] Chronic myeloid leukemia, BCR/ABL-positive, not having achieved [...] Upcoming Encounters Date Type Department Care Team ([facility] Contact Info) Description 10/30/2024 8:00 AM EDT Clinical Support [facility] Hematology/BMT and Cellular Therapy Program [address] [place] [phone] 10/30/2024 8:30 AM EDT Office Visit [facility] Hematology/BMT and Cellular Therapy Program [address] [place] [phone] Radha Morelos APRN 800 [facility] [address] [place] [phone] 11/13/2024 1:00 PM EDT Office Visit [facility] [address] [place] [address] Verena Montes PA [address] [facility] [address] [place] [address] 11/27/2024 1:30 PM EDT Clinical Support [facility] Hematology/BMT and Cellular Therapy Program [address] [place] [phone] 11/27/2024 2:00 PM EDT Office Visit [facility] Hematology/BMT and Cellular Therapy Program [address] [place] [phone] Mk Pastrana MD 800 [facility] [address] [place] [phone] documented as of this encounter Procedures [...] High Resolution Typing NMDP Donor (RESEARCH ONLY) (10/03/2024 11:46 AM EDT) Blood Venous blood specimen / Unknown 10/03/2024 11:46 AM EDT 10/04/2024 12:41 PM EDT us Dary E Vincent MANUFACTURING MAINTENANCE TECHNICIAN LAB BLOOD ORDERABLES Final Result Performing Organization Address [facility] Co de Phone Number [facility] [address] [place] [address], * HLA Typing, Donor (HLATWD) (10/03/2024 11:46 AM EDT) HLA Lab Only (HLA Lab Only) 10/03/2024 11:46 AM EDT 10/04/2024 12:41 PM EDT Dary E Vincent MANUFACTURING MAINTENANCE TECHNICIAN LAB BLOOD ORDERABLES Final Result Performing Organization Address [facility] de Phone Number [facility] [address] documented in this encounter Visit Diagnoses Diagnosis Chronic myeloid leukemia, BCR/ABL-positive, 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) documented in this encounter Additional Health Concerns Assessment Noted Time A Body Mass Index follow-up plan has been documented for the patient 09/11/2024 6:12 PM EDT documented as of this encounter Care Teams Body Designer Relationship Specialty Start Date End Date Willi Frost MD [address] [place] [phone] PCP - General 06/11/24 documented as of this encounter
--- OUTSIDE RECORDS SUMMARY | 2024-10-15 12:36 | XMS_ITS | Encounter Summary ---
Author Organization [facility] Address [address] [place] [address] Care Team Providers Care Accounting Administrative Assistant Name Role Phone Willi Frost MD Primary Care Provider Encounter Details Date Type Department Care Team ([facility] Contact Info) Description 10/03/2024 Telephone [facility] Hematology/BMT and Cellular Therapy Program [address] [phone] Oralia Liu, RN [facility] Social History Tobacco Use [...] Upcoming Encounters Date Type Department Care Team ([facility] Contact Info) Description 10/30/2024 8:00 AM EDT Clinical Support [facility] Hematology/BMT and Cellular Therapy Program [address] [phone] 10/30/2024 8:30 AM EDT Office Visit [facility] Hematology/BMT and Cellular Therapy Program [address] [phone] Radha Morelos, BANBURY OPERATOR [address] [facility] [address] [place] [phone] 11/13/2024 1:00 PM EDT Office Visit [facility] [address] [place] [address] Verena Montes PA [address] [facility] [address] [place] [address] 11/27/2024 1:30 PM EDT Clinical Support [facility] Hematology/BMT and Cellular Therapy Program [address] [place] [phone] 11/27/2024 2:00 PM EDT Office Visit [facility] Hematology/BMT and Cellular Therapy Program [address] [place] [address] Mk Pastrana MD 800 [facility] [address] [place] [phone] documented as of this encounter Visit Diagnoses Not on filedocumented in this encounter Additional Health Concerns Assessment Noted Time A Body Mass Index follow-up plan has been documented for the patient 09/11/2024 6:12 PM EDT documented as of this encounter Care Teams Accounting Administrative Assistant Relationship Specialty Start Date End Date Willi Frost MD [facility] [address] [facility] [address] [place] [address] PCP - General 06/11/24 documented as of this encounter
--- OUTSIDE RECORDS SUMMARY | 2024-10-15 12:36 | XMS_ITS | Encounter Summary ---
Author Organization [facility] Address [address] [place] [address] Care Team Providers Care Director Media Name Role Phone Willi Frost MD Primary Care Provider Reason for Visit * Reason Onset Date Comments new start 10/08/2024 Encounter Details Date Type Department Care Team (Late st Contact Info) Description 10/08/2024 Telephone [facility] [address] [place] [phone] Erwin Valentin, PharmD new start Social History Tobacco Use Types Packs/Day Years [...] encounter Miscellaneous Notes * Telephone Encounter - Saskia Welch, PharmD - 10/10/2024 4:42 PM EDT 54yo female - CML Changing therapy due to cytopenias from Scemblix to Iclusig 45mg PO QD Labs 10/08/24: ANC 0.92, therapy changing to address No DDI [facility] Specialty Medication Initial Care Plan Amtia Ortiz is a 54 y.o. female assessed via phone for initiation of drug therapy Iclusig for diagnosis CML. Plan for administration of therapy in patient's home Therapeutic Category: Oncology Chart Review Allergies: Patient has no known allergies. Current Outpatient Medications Medication Instructions cetirizine (ZYRTEC) 10 mg, Oral, Daily PONATinib (ICLUSIG) 45 mg, Oral, Daily, Take with or without food. Swallowed whole. Problem List[1] There is no immunization history on file for this patient. Selected lab results: Lab Results Component Value Date WBC 2.43 (L) 10/08/2024 HGB 12.9 10/08/2024 HCT 39.2 10/08/2024 PLT 124 (L) 10/08/2024 , Lab Results Component Value Date NA 142 10/08/2024 K 4.3 10/08/2024 CL 107 10/08/2024 CREATININE 0.65 10/08/2024 BUN 10 10/08/2024 GLUCOSE 90 10/08/2024 CALCIUM 9.5 10/08/2024 CO2 22 10/08/2024 , and Lab Results Component Value Date ALBUMIN 4.8 10/08/2024 ALKPHOS 104 10/08/2024 ALT 21 10/08/2024 AST 22 10/08/2024 BILITOT 1.0 10/08/2024 Patient profile review for changes in Medications, Allergies, Conditions, Vaccinations? Reviewed - no changes Medication reconciliation - review all current medications including prescriptions, PTC, herbals, and supplements with the patient? Completed Is this an infusion therapy? No Patient is treatment: Experienced: Previous therapies include - hydrea, dasatinib, nilotinib, asciminib Reasons for previous treatment failure - progression, ADRs Is patient of child bearing potential? No Disease specific labs or assessments: Oncology/Hematology Mutation Status NA Does patient have an active infection? None Drug Review Patient drug therapy to be initiated: Iclusig Planned date of initiation: 10/15/24 Is the patient taking concomitant therapy for this disease? No Drug assessment: Is this the appropriate drug/dose/route/frequency/duration? Yes Drug utilization review Drug-disease precautions: No clinically significant issues identified Drug-drug interactions: No clinically significant issues identified Drug-patient precautions: No clinically significant issues identified Adherence summary: What percent of doses did the patient miss in the past 4 weeks? N/A Therapeutic benefit summary: N/A Patient's therapy is appropriate to: Initiate Education and Counseling Patient educated & counseled on disease education including an overview of the condition, its progression and potential complications, associated comorbidities, prevention strategies, goals of therapy, and treatment and therapy management. Patient educated & counseled on medication(s) including REMS/Black box warnings, proper use, timely administration or intake, missed dose instructions, potential side effects, contraindications, safety and handling precautions, storage and disposal guidelines, and general warnings and precautions. Patient educated & counseled on adherence including the importance of adherence and adherence management strategies. Medication specific education provided: Patient educated by [facility] for Medication Regimen: Iclusig 45mg PO QD. They were educated on how to take medication by mouth as well as importance of therapy adherence, recommended storage requirements, food/drug interactions, common and clinically significant adverse effects, and missed dose instructions. If requested, written materials were also sent with the first fill and may also include a hazardous drug handout that details applicable handling precautions and storage requirements. Other written materials that may be sent with the first fill, or subsequent fills, include a drug information sheet and/or a calendar to aid in adherence, if requested. P atient and/or caregiver encouraged to contact [facility] with any questions or concerns. Monitoring Questions Patient reported outcomes: Do you feel comfortable administering your medication and following the treatment plan as prescribed? Yes If therapy is injectable, does patient require further injection training? N/A How would you rate your pain on average? (0 = no pain, 10 = worst pain imaginable) N/A On a scale from 1 to 10, with 10 being very well and 1 being very poor, how are you feeling overall? 9 How satisfied are you with the ongoing education and counseling you receive regarding your health condition, on a scale of 1 to 5, with 5 being completely satisfied and 1 being dissatisfied? Patient management score: 5-Completely Satisfied Patient Management Assessment scores must be reviewed by a clinician with each Care Plan. Scores of2 or lower must be documented in a Clinical Intervention Care Plan. Disease symptoms assessment Has the patient been seen for planned or unplanned healthcare visit in the last 4 weeks? No Has the patient missed any days from work, school, or planned activities in the past 4 weeks due totheir disease? No Care Plan Questions Goal(s) of therapy: Improving or maintaining quality of life, Slow or prevent progression of disease, and Minimize/manage side effects or toxicities Strategies to achieve goal(s) of therapy: Adhere to plan of care (drug therapy), Comply to lab tests/imaging, Comply to follow up appointments, Share concerns about drug therapy or side effects with care team, and Adhere to lifestyle modifications recommended by care team Identified barrier(s) to care/intervention problem type: No problems identified (No barriers to care or risks associated with medication storage and handling identified) Mitigation strategy for identified barriers: NA Outcome of Clinical Intervention: Intervention not needed Current adverse events/side effects patient is experiencing: No adverse events/side effects Counseled patient on selected side effects: Deferred Summary/Plan Prior authorization for Iclusig has been approved and education provided. The Initial Shipment has been set up and anticipated therapy start date is: 10/15/24 from [facility]. Please see pharmacy encounter note for details. Pharmacist reviewed the plan of care in regards to specialty medication Medication Regimen: [id number] PO QD for diagnosis of CML. Patient starting therapy with anticipated therapy start date is: 10/15/24.. Anticipated filling pharmacy is: [facility] and location of administration will be patient's home Plan/Patient specific needs: No questions or concerns at this time. Patient/caregiver participated in the development and agreed to the plan of care. Patient/caregiverhad no additional questions or concerns for the care team. Patient/caregiver voiced understanding of the goals with the regimen and agreed to attend follow up appointments to assess progress toward their goal. The plan of care will be reviewed at least annually, or more often if there is a need. The patient agrees with all elements of the care plan: Yes Saskia Welch, Yoli 10/10/2024 4:42 PM [1] Patient Active Problem List Diagnosis CML (chronic myelocytic leukemia) ([facility]) Second hand smoke exposure documented in this encounter Plan of Treatment Upcoming Encounters Date Type Department Care Team ([facility] st Contact Info) Description 10/30/2024 8:00 AM EDT Clinical Support [facility] Hematology/BMT and Cellular Therapy Program [address] [place] [phone] 10/30/2024 8:30 AM EDT Office Visit [facility] Hematology/BMT and Cellular Therapy Program 750 [facility], [address] [place] [address] [place] [phone] Radha Morelos, MARCY 800 [facility] [address] [place] [phone] 11/13/2024 1:00 PM EDT Office Visit [facility] [address] [facility] [place] [address] Verena Montes PA [address] [facility] [address] [place] [address] 11/27/2024 1:30 PM EDT Clinical Support [facility] Hematology/BMT and Cellular Therapy Program [address] [place] [phone] 11/27/2024 2:00 PM EDT Office Visit [facility] Hematology/BMT and Cellular Therapy Program [address] [phone] Mk Pastrana MD [address] [facility] [address] [place] [phone] documented as of this encounter Visit Diagnoses Not on filedocumented in this encounter Additional Health Concerns Assessment Noted Time A Body Mass Index follow-up plan has been documented for the patient 09/11/2024 6:12 PM EDT documented as of this encounter Care Teams Director Media Relationship Specialty Start Date End Date Willi Frost MD [facility] [address] [place] [address] PCP - General 06/11/24 documented as of this encounter
--- OUTSIDE RECORDS SUMMARY | 2024-10-15 12:36 | XMS_ITS | Encounter Summary ---
Author Organization [facility] Address [address] 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) Social History [...] Department Care Team ([facility] Contact Info) Description 10/30/2024 8:00 AM EDT Clinical Support [facility] Hematology/BMT and Cellular Therapy Program [address] [place] [address] 10/30/2024 8:30 AM EDT Office Visit [facility] Hematology/BMT and Cellular Therapy Program [address] [phone] Radha Morelos, MATERNAL FETAL PHYSICIAN 800 [facility] [address] [place] [phone] 11/13/2024 1:00 PM EDT Office Visit [facility] [address] [facility] [place] [address] Verena Montes PA [address] [facility] [address] [place] [address] 11/27/2024 1:30 PM EDT Clinical Support [facility] Hematology/BMT and Cellular Therapy Program [address] [phone] 11/27/2024 2:00 PM EDT Office Visit [facility] Hematology/BMT and Cellular Therapy Program [address] [phone] Mk Pastrana MD 800 [facility] [address] [place] [phone] Pending Results Name Type Priority Associated Diagnoses Date /Time HLA Typing, Donor (HLATWD) Lab Routine Acute myeloblastic leukemia, 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) 10/07/2024 10:00 AM EDT documented as of this encounter Procedures Procedure Name Priority Date/Time Associated Diagnosis Comments BILL ONLY HLA NGS HIGH RESOLUTION TYPING BMT NMDP DONOR Routine 10/07/2024 10:00 AM EDT Acute myeloblastic leukemia, 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) documented in this encounter Results * BILL ONLY HLA NGS High Resolution Typing NMDP Donor (RESEARCH ONLY) (10/07/2024 10:00 AM EDT) Blood Venous blood specimen / Unknown 10/07/2024 10:00 AM EDT 10/10/2024 3:24 PM EDT Dary Vincent MATERNAL FETAL PHYSICIAN LAB BLOOD ORDERABLES Final Result [facility] [address] [place] [address], documented in this encounter Visit Diagnoses Diagnosis Acute myeloblastic leukemia, 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
--- OUTSIDE RECORDS SUMMARY | 2024-10-15 12:36 | XMS_ITS | Encounter Summary ---
Author Organization [facility] Address [address] [place] [address] Care Team Providers Care Supervisor Cytology Name Role Phone Willi Frost MD Primary Care Provider [phone] Encounter Details Date Type Department Care Team ([facility] Contact Info) Description 10/08/2024 Lab Requisition [facility] Blood Bank [address] [place] [address] Moises Estrada MD [address] [place] [phone] General medical exam Social History Tobacco Use [...] CC Hematology/BMT and Cellular Therapy Program [address] [place] [phone] 10/30/2024 8:30 AM EDT Office Visit [facility] Hematology/BMT and Cellular Therapy Program [address] [place] [place] [address] Radha Morelos, REPLENISHMENT SPECIALIST 800 [facility] [address] [place] [phone] 11/13/2024 1:00 PM EDT Office Visit [facility] [address] [facility] [place] [address] Verena Montes PA [address] [facility] [address] [place] [address] 11/27/2024 1:30 PM EDT Clinical Support [facility] Hematology/BMT and Cellular Therapy Program [address] [place] [phone] 11/27/2024 2:00 PM EDT Office Visit [facility] Hematology/BMT and Cellular Therapy Program [address] [phone] Mk Pastrana MD [address] [facility] [address] [place] [phone] documented as of this encounter Procedures Procedure Name Priority Date/Time Associated Diagnosis Comments BILL ONLY ISOAGGLUTININ TITER Routine 10/03/2024 11:45 AM EDT General medical exam BILL ONLY TYPE & SCREEN Routine 10/04/19 11:45 AM EDT General medical exam documented in this encounter Results * Bill Only Type & Screen (10/03/2024 11:45 AM EDT) Blood Bank Lab Only (Blood Bank Lab Only) 10/03/2024 11:45 AM EDT 10/08/2024 7:50 AM EDT us Moises Estrada MD LAB BLOOD BANK TEST ORDERAB LES Final Result BLOOD BANK [address] [place] [address], * Bill Only Isoagglutinin Titer (10/03/2024 11:45 AM EDT) Blood Bank Lab Only (Blood Bank Lab Only) 10/03/2024 11:45 AM EDT 10/08/2024 7:50 AM EDT us Moises Estrada MD LAB BLOOD BANK TEST ORDERAB LES Final Result Performing Organization Address City/State/[facility] Co de Phone Number BLOOD BANK [address] documented in this encounter Visit Diagnoses Diagnosis General medical exam Unspecified general medical examination documented in this encounter Additional Health Concerns Assessment Noted Time A Body Mass Index follow-up plan has been documented for the patient 09/11/2024 6:12 PM EDT documented as of this encounter Care Teams Supervisor Cytology Relationship Specialty Start Date End Date Willi Frost MD [address] [place] [address] [address] [place] [address] PCP - General 06/11/24 documented as of this encounter
--- OUTSIDE RECORDS SUMMARY | 2024-10-15 12:36 | XMS_ITS | Encounter Summary ---
Author Organization [facility] Address [address] [place] [address] Care Team Providers Care Assignment Editor Name Role Phone Pcp, No Primary Care Provider Willi Mckeon MD Primary Care Provider Encounter Details Date Type Department Care Team (Late Contact Info) Description 2024 Lab Requisition [facility] H Lab 800 [place] [phone] Mk Pastrana MD 800 [facility] [address] [place] [phone] Chronic myeloid leukemia, BCR/ABL-positive, not having [...] CC Hematology/BMT and Cellular Therapy Program 750 [facility] [place] [phone] 10/30/2024 8:30 AM EDT Office Visit [facility] Hematology/BMT and Cellular Therapy Program [address] [phone] Radha Morelos APRN 800 [facility] Cancer [address] [phone] 11/13/2024 1:00 PM EDT Office Visit [facility] [address] [place] [address] Verena Montes PA 3101 [facility] [address] [place] [address] 11/27/2024 1:30 PM EDT Clinical Support [facility] Hematology/BMT and Cellular Therapy Program [address] [place] [phone] 11/27/2024 2:00 PM EDT Office Visit [facility] Hematology/BMT and Cellular Therapy Program [address] [phone] Mk Pastrana MD 800 [facility] Cancer [address] [phone] documented as of this encounter Procedures Procedure Name Priority Date/Time Associated Diagnosis Comments BONE MARROW EXAM CONSULT Routine 2024 12:48 PM EST Chronic myeloid leukemia, BCR/ABL-positive, 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) documented in this encounter Results * Bone marrow exam consult (2024 12:48 PM EST) Case Report Bone Marrow Case: [id number] Authorizing Provider: Mk Pastrana MD Collected: 2024 1241 Ordering Location: [facility] Lab Received: 2024 1248 Pathologist: Stewart Lombardi MD Specimen: Bone Marrow Aspirate, [id number] 05/06/2024 10:30 AM [facility] Final Diagnosis BONE MARROW ASPIRATE AND BIOPSY (CASE COLLECTED 02/13/2024): - VARIABLY HYPOCELLULAR BONE MARROW WITH DECREASED TRILINEAGE PRECURSORS (MOST NOTABLY MYELOID PRECURSORS), PATCHY 1+ RETICULIN FIBROSIS, MILD MEGAKARYOCYTIC ATYPIA, AND NO INCREASE IN BLASTS. 05/06/2024 10:30 AM [facility] at 1030 EST Comment The patient has a history of chronic myeloid leukemia, and accompanying karyotype confirms the presence of the [place] chromosome without other abnormality. PCR was negative for mutations within the BCR-ABL1 kinase domain. 05/06/2024 10:30 AM [facility] Clinical Information C92.10 - Chronic myeloid leukemia, BCR/ABL-positive, not having achieved remission [ICD-10-CM] 05/06/2024 10:30 AM [facility] Bone Marrow Differential BONE MARROW DIFFERENTIAL: 200 cells Normal Patient Neutrophils 15-50 25 Metamyelocytes 4-19 5 Myelocytes 1-18 8 Promyelocytes 1-8 1 Blasts 0-2 0 Monocytes 0-5 3 Erythroid 16-38 45 Lymphocytes 3-24 11 Eosinophils 0-6 0 Basophils 0-2 0 Plasma cells 0-4 2 Other 05/06/2024 10:30 AM [facility] Aspirate Smear Aspirate smears are aspicular and paucicellular. Morphologic evaluation and differential is performed on touch preparation. 05/06/2024 10:30 AM [facility] Touch Imprints A touch preparation shows trilineage precursors. Myeloid precursors show complete maturation with no increase in blasts. Erythroid precursors show mild megaloblastoid change. Megakaryocytes are atypical, with some small forms having abnormal separation of nuclear lobes. 05/06/2024 10:30 AM [facility] Core Biopsy Core biopsy sections show patchy marrow cellularity (overall approximately 20%) with scattered foci of fibrosis. Cellular areas feature normally distributed trilineage precursors and cellular composition similar to touch preparation. No lymphoid aggregates are seen. A CD34 immunostain highlights microvasculature with no definite increase in blasts. 05/06/2024 10:30 AM [facility] Clot Section Clot sections are aspicular. They consist of predominantly blood. 05/06/2024 10:30 AM [facility] Flow Cytometry Interpretation Per report, flow cytometric analysis shows a hemodilute specimen with no immunophenotypic abnormalities. [id number] blasts constitute 0.1% of total events. 05/06/2024 10:30 AM [facility] CYTOGENETICS/MOL ECULAR INTERPRETATION Per report, conventional cytogenetic studies showed an abnormal female karyotype with the [place] chromosome in 100% of analyzed metaphase cells. There are no other karyotypic abnormalities. Per report, molecular analysis showed no mutations within the BCR-ABL1 kinase domain. 05/06/2024 10:30 AM [facility] Gross Description A. [id number] Received along with a corresponding pathology report from Pathology & Cytology Laboratory are 10 slides labeled outside case: [id number] collected on 02/13/2024. 05/06/2024 10:30 AM [facility] Note: A resident was involved in the service. I attest I examined the relevant preparations for the specimens and confirmed the diagnosis or interpretation. 05/06/2024 10:30 AM [facility] Bone Marrow Specimen from bone marrow obtained by aspiration / Unknown 2024 12:48 PM EST 2024 12:48 PM EST us Mk Pastrana MD LAB PATHOLOGY ORDERABLES Nani smith Result [facility] [address] [place] [address] documented in this encounter Visit Diagnoses Diagnosis Chronic myeloid leukemia, BCR/ABL-positive, 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) documented in this encounter Care Teams Assignment Editor Relationship Specialty Start Date End Date Pcp, No 800 [place] [address] PCP - General Family Medicine 04/30/24 06/10/24 Willi Frost MD [address] [place], [place] [phone] PCP - General 06/11/24 documented as of this encounter
--- OUTSIDE RECORDS SUMMARY | 2024-10-15 12:37 | XMS_ITS | Encounter Summary ---
Author Organization [facility] Address [address] [place] [address] Care Team Providers Care Per Diem Physical Therapist Name Role Phone Willi Frost MD Primary Care Provider Encounter Details Date Type Department Care Team (Latest Contact Info) Description 09/25/2024 Travel Social History Tobacco Use Types Packs/Day [...] CC Hematology/BMT and Cellular Therapy Program [address] [phone] 10/30/2024 8:30 AM EDT Office Visit [facility] Hematology/BMT and Cellular Therapy Program [address] [phone] Radha Morelos, FIELD ARTILLERY TARGETING TECHNICIAN 800 [facility] [address] [place] [phone] 11/13/2024 1:00 PM EDT Office Visit [facility] [address] [place] [phone] Verena Montes PA 3101 [facility] [address] [place] [phone] 11/27/2024 1:30 PM EDT Clinical Support [facility] Hematology/BMT and Cellular Therapy Program [address] [phone] 11/27/2024 2:00 PM EDT Office Visit [facility] Hematology/BMT and Cellular Therapy Program [address] [phone] Mk Pastrana MD 800 [facility] [address] [place] [phone] documented as of this encounter Visit Diagnoses Not on filedocumented in this encounter Additional Health Concerns Assessment Noted Time A Body Mass Index follow-up plan has been documented for the patient 09/11/2024 6:12 PM EDT documented as of this encounter Care Teams Per Diem Physical Therapist Relationship Specialty Start Date End Date Willi Frost MD [address] [place] [address] [address] [place] [address] PCP - General 06/11/24 documented as of this encounter
--- OUTSIDE RECORDS SUMMARY | 2024-10-15 12:37 | XMS_ITS | Encounter Summary ---
Author Organization [facility] Address [address] [id number] Care Team Providers Care Switchboard Operator Helper Name Role Phone Willi Frost MD Primary Care Provider Reason for Visit * Reason Comments Transplant Evaluation Encounter Details Date Type Department Care Team ([facility] st Contact Info) Description 09/25/2024 Social Work Psych Oncology 800 [place] [address] Michelle Gamez LCSW [place] [phone] Social History Tobacco Use Types Packs/Day Years [...] Clinician Note - Michelle Gamez LCSW - 09/25/2024 11:56 AM EDT Encounter Type: In Person Visit Disease Status: Established Patient Clinic Location: [facility] Disease Type: Leukemia Disease Type Other: CML Services Provided: Financial Support, Financial Toxicity, Psychosocial Monitoring, Resource Navigation, BMT / Car-T Psychosocial Assessment Intervention Level: 3 Units (1 unit = 15 minutes): 2 Narrative: WEIGH MACHINE OPERATOR met with patient along with her daughter and family friend with intention to complete P/S as part of work-up for allogenic stem-cell transplant. Patient's chest x-ray ran considerablyover so full assessment was not completed on this date. WEIGH MACHINE OPERATOR and patient's family met for 20 minutes and questions were answered regarding education on procedure, caregiver expectations and transporta tion resources. Patient will have primary caregiver support from her daughter, logistics are complex. Daughter is sole source of income in household and cannot take off work for extended period of time if she can help it. Patient will have most of her caregiver support late afternoon and overnight.Since post-transplant course is typically daily appts patient can utilize medicaid transportation. T susuy were educated on process for referral first and if there is denial due to vehicle, override will be requested. WEIGH MACHINE OPERATOR explored if daughter could transport patient if necessary. Daughter shared thatwith her work schedule she could drop off her mother but pick-up would be after she gets of work ifnecessary. Further discussion of logistics will be discussed once P/S is rescheduled. Patient was also provided with [facility] patient grants work-sheet to complete and bring back on 10/03. She was also informed that Urgent Need Funds were applied for on this date and POI was provided. WEIGH MACHINE OPERATOR will upload via [employer] portal. WEIGH MACHINE OPERATOR to remain available for supportive needs as they arise. documented in this encounter Plan of Treatment Upcoming Encounters Date Type Department Care Team ([facility] Contact Info) Description 10/30/2024 8:00 AM EDT Clinical Support [facility] Hematology/BMT and Cellular Therapy Program [address] [phone] 10/30/2024 8:30 AM EDT Office Visit [facility] Hematology/BMT and Cellular Therapy Program [address] [phone] Radha Morelos, CCO & PRESIDENT 800 [facility] [address] [place] [phone] 11/13/2024 1:00 PM EDT Office Visit [facility] [address] [place] [phone] Verena Montes PA 3101 [facility] [address] [place] [phone] 11/27/2024 1:30 PM EDT Clinical Support [facility] Hematology/BMT and Cellular Therapy Program [address] [phone] 11/27/2024 2:00 PM EDT Office Visit [facility] Hematology/BMT and Cellular Therapy Program [address] [phone] Mk Pastrana MD 800 [facility] [address] [place] [phone] documented as of this encounter Visit Diagnoses Not on filedocumented in this encounter Additional Health Concerns Assessment Noted Time A Body Mass Index follow-up plan has been documented for the patient 09/11/2024 6:12 PM EDT documented as of this encounter Care Teams Switchboard Operator Helper Relationship Specialty Start Date End Date Willi Frost MD [address] [place] [address] [address] [place] [address] PCP - General 06/11/24 documented as of this encounter
--- OUTSIDE RECORDS SUMMARY | 2024-10-15 12:37 | XMS_ITS | Encounter Summary ---
Author Organization [facility] Address [address] [place] [address] Care Team Providers Care Doll Repairer Name Role Phone Willi Frost MD Primary Care Provider Encounter Details Date Type Department Care Team ([facility] Contact Info) Description 09/10/2024 Telephone [facility] Hematology/BMT and Cellular Therapy Program [address] [place] [phone] Tg Rodgers RN [facility] H[facility]IN[facility] Social History Tobacco [...] Hematology/BMT and Cellular Therapy Program [address] [phone] 10/30/2024 8:30 AM EDT Office Visit [facility] Hematology/BMT and Cellular Therapy Program [address] [place] [phone] Radha Morelos, ELECTRICAL DESIGNER DRAFTER 800 [facility] [address] [place] [phone] 11/13/2024 1:00 PM EDT Office Visit [facility] [address] [place] [address] Verena Montes PA [address] [facility] 100 [place] [address] 11/27/2024 1:30 PM EDT Clinical Support [facility] Hematology/BMT and Cellular Therapy Program [address] [place] [phone] 11/27/2024 2:00 PM EDT Office Visit [facility] Hematology/BMT and Cellular Therapy Program [address] [place] [phone] Mk Pastrana MD 800 [facility] [address] [place] [phone] documented as of this encounter Visit Diagnoses Not on filedocumented in this encounter Additional Health Concerns Assessment Noted Time A Body Mass Index follow-up plan has been documented for the patient 08/28/2024 5:28 PM EDT documented as of this encounter Care Teams Doll Repairer Relationship Specialty Start Date End Date Willi Frost MD [employer] [address] [facility] [address] [place] [address] PCP - General 06/11/24 documented as of this encounter
--- OUTSIDE RECORDS SUMMARY | 2024-10-15 12:37 | XMS_ITS | Encounter Summary ---
Author Organization [facility] Address [address] [id number] Care Team Providers Care Supervisor [place] Room Name Role Phone Willi Frost MD Primary Care Provider [phone] Reason for Visit * Reason Comments Resource Navigation Consult Encounter Details Date Type Department Care Team ([facility] st Contact Info) Description 08/20/2024 Social Work Psych Oncology 800 [place] [phone] Michelle Gamez LCSW [place] [phone] Social History Tobacco Use Types Packs/Day Years [...] Status: Initial Psych Onc Contact Clinic Location: [facility] Disease Type: Leukemia Services Provided: Emotional Support, [...] support options within the context of transplant. HOT MILL WORKER explained role within clinic along with Psych-Oncology services. 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 Both patient and daughter explain complexities of caregiver support. Patient relocated from [place] after diagnosis to be closer to support system and is now living with daughter Jade. While there are multiple persons in household, most have other responsibilities so caregiver support during the day could be challenging. Patient and daughter asked about grantand/or insurance fund caregiver support options. HOT MILL WORKER explained that there are no specific grants for caregivers but grants through [facility] that can help offset income loss. HOT MILL WORKER, patient, and daughter also discussed logistics of post-transplant schedule including daily appts. If transportation is main barrier than medicaid transportation could be explored as option. Patient will have caregiver support daily from 4:00pm-overnight. Patient and daughter were encouraged to talk over disposition with family and further discussion will occur during formal BMT P/S evaluation. HOT MILL WORKER to remain available for supportive needs as they arise. They were provided with contact information and encouraged to reach out as supportive needs as they arise. HOT MILL WORKER also completed LLS Patient Aid on this date as well. documented in this encounter Plan of Treatment Upcoming Encounters Date Type Department Care Team ([facility] Contact Info) Description 10/30/2024 8:00 AM EDT Clinical Support [facility] Hematology/BMT and Cellular Therapy Program [address] [phone] 10/30/2024 8:30 AM EDT Office Visit [facility] Hematology/BMT and Cellular Therapy Program [address] [phone] Radha Morelos, PIANO CASE MAKER 800 [facility] [address] [place] [phone] 11/13/2024 1:00 PM EDT Office Visit [facility] [address] [place] [phone] Verena Montes PA [address] [facility] [address] [place] [phone] 11/27/2024 1:30 PM EDT Clinical Support [facility] Hematology/BMT and Cellular Therapy Program [address] [phone] 11/27/2024 2:00 PM EDT Office Visit [facility] Hematology/BMT and Cellular Therapy Program [address] [phone] Mk Pastrana MD 800 [facility] [address] [place] [phone] documented as of this encounter Visit Diagnoses Not on filedocumented in this encounter Care Teams Supervisor [place] Relationship Specialty Start Date End Date Willi Frost MD [facility] [address] [place] [address] PCP - General 06/11/24 documented as of this encounter
--- OUTSIDE RECORDS SUMMARY | 2024-10-15 12:37 | XMS_ITS | Encounter Summary ---
Author Organization [facility] Address [address] [place] [address] Care Team Providers Care Vacuum Cleaner Assembler Name Role Phone Willi Frost MD Primary Care Provider Encounter Details Date Type Department Care Team ([facility] Contact Info) Description 09/25/2024 Telephone [facility] Hematology/BMT and Cellular Therapy Program [address] [place] [address] [place] [address] Tg Rodgers RN [facility] HEMATOLOGY PROGRAM CLINIC Social History Tobacco [...] Clinician Note - Tg Rodgers RN - 09/25/2024 11:31 AM EDT Critical lab reported. ANC 0.42. Primary RN notified. documented in this encounter Plan of Treatment Upcoming Encounters Date Type Department Care Team ([facility] Contact Info) Description 10/30/2024 8:00 AM EDT Clinical Support [facility] Hematology/BMT and Cellular Therapy Program [address] [phone] 10/30/2024 8:30 AM EDT Office Visit [facility] Hematology/BMT and Cellular Therapy Program [address] [place] [phone] Radha Morelos, PLUGGER WORKER 800 [facility] [address] [place] [phone] 11/13/2024 1:00 PM EDT Office Visit [facility] [address] [place] [phone] Verena Montes PA [address] [facility] 100 [place] [phone] 11/27/2024 1:30 PM EDT Clinical Support [facility] Hematology/BMT and Cellular Therapy Program [address] [place] [phone] 11/27/2024 2:00 PM EDT Office Visit [facility] Hematology/BMT and Cellular Therapy Program [address] [place] [phone] Mk Pastrana MD 800 [facility] [address] [place] [phone] documented as of this encounter Visit Diagnoses Not on filedocumented in this encounter Additional Health Concerns Assessment Noted Time A Body Mass Index follow-up plan has been documented for the patient 09/11/2024 6:12 PM EDT documented as of this encounter Care Teams Vacuum Cleaner Assembler Relationship Specialty Start Date End Date Willi Frost MD [address] [facility] [address] [place] [address] PCP - General 06/11/24 documented as of this encounter
--- OUTSIDE RECORDS SUMMARY | 2024-10-15 12:37 | XMS_ITS | Encounter Summary ---
Author Organization [facility] Address [address] [place] [address] Care Team Providers Care Car Porter Name Role Phone Willi Frost MD Primary Care Provider [phone] Reason for Referral * Transplant (Routine) - Authorized Specialty Diagnoses / Procedures Referred By Contac t Referred To Contact Blood and Marrow Transplant Diagnoses CML (chronic myelocytic leukemia) (CMS/HCC) Procedures BMT Authorization for Transplant Mk Pastrana MD 800 [facility] [address] [place] [phone] Phone: tel: fax: [facility] Hematology/BMT and Cellular Therapy Program [address] [phone] Phone: tel: fax: Referral ID Status Reason Start Date Expiration Date V isits Requested Visits Authorized [id number] Authorized 09/25/2024 03/27/2026 1 1 Encounter Details Date Type Department Care Team (Late st Contact Info) Description 09/25/2024 Orders Only [facility] Hematology/BMT and Cellular Therapy Program [address] [phone] Leo De Souza, RN [facility] HEMATOLOGY PROGRAM CLINIC CML (chronic myelocytic leukemia) [...] Upcoming Encounters Date Type Department Care Team ([facility] Contact Info) Description 10/30/2024 8:00 AM EDT Clinical Support [facility] Hematology/BMT and Cellular Therapy Program [address] [phone] 10/30/2024 8:30 AM EDT Office Visit [facility] Hematology/BMT and Cellular Therapy Program [address] [phone] Radha Morelos, RETAIL DEPARTMENT MANAGER 800 [facility] [address] [place] [phone] 11/13/2024 1:00 PM EDT Office Visit [facility] [address] [place] [phone] Verena Montes PA [address] [facility] 100 [place] [phone] 11/27/2024 1:30 PM EDT Clinical Support [facility] Hematology/BMT and Cellular Therapy Program [address] [phone] 11/27/2024 2:00 PM EDT Office Visit [facility] Hematology/BMT and Cellular Therapy Program [address] [phone] Mk Pastrana MD 800 [facility] [address] [place] [phone] documented as of this encounter Visit Diagnoses Diagnosis CML (chronic myelocytic leukemia) (CMS/HCC)- Primary Chronic myeloid leukemia, without mention of having achieved remission documented in this encounter Additional Health Concerns Assessment Noted Time A Body Mass Index follow-up plan has been documented for the patient 09/11/2024 6:12 PM EDT documented as of this encounter Care Teams Car Porter Relationship Specialty Start Date End Date Willi Frost MD [address] [place] [address] PCP - General 06/11/24 documented as of this encounter
--- OUTSIDE RECORDS SUMMARY | 2024-10-15 12:37 | XMS_ITS | Encounter Summary ---
Author Organization [facility] Address [address] [place] [address] Care Team Providers Care Department Coordinator Name Role Phone Willi Frost MD Primary Care Provider Encounter Details Date Type Department Care Team ([facility] st Contact Info) Description 08/01/2024 Telephone [facility] Hematology/BMT and Cellular Therapy Program [address] [place] [address] Mk Pastrana MD 800 [facility] [address] [place] [phone] Social History Tobacco Use Types Packs/Day Years [...] quit smoking. Best number to contact is [phone]. documented in this encounter Plan of Treatment Upcoming Encounters Date Type Department Care Team ([facility] Contact Info) Description 10/30/2024 8:00 AM EDT Clinical Support [facility] Hematology/BMT and Cellular Therapy Program [address] [phone] 10/30/2024 8:30 AM EDT Office Visit [facility] Hematology/BMT and Cellular Therapy Program [address] [place] [phone] Radha Morelos, MARCY 800 [facility] [address] [place] [phone] 11/13/2024 1:00 PM EDT Office Visit [address] [phone] Verena Montes PA [address] [place] [phone] 11/27/2024 1:30 PM EDT Clinical Support [facility] Hematology/BMT and Cellular Therapy Program [address] [phone] 11/27/2024 2:00 PM EDT Office Visit [facility] Hematology/BMT and Cellular Therapy Program [address] [phone] Mk Pastrana MD 800 [facility] [address] [place] [phone] documented as of this encounter Visit Diagnoses Not on filedocumented in this encounter Care Teams Department Coordinator Relationship Specialty Start Date End Date Willi Frost MD [address] [place] [address] PCP - General 06/11/24 documented as of this encounter
--- OUTSIDE RECORDS SUMMARY | 2024-10-15 12:37 | XMS_ITS | Encounter Summary ---
Author Organization [facility] Address [address] [place] [address] Care Team Providers Care Mechanic General Operational Test Name Role Phone Willi Frost MD Primary Care Provider [phone] Reason for Referral * Imaging (Routine) - Closed Specialty Diagnoses / Procedures Referred By Contac t Referred To Contact Cardiology Diagnoses CML (chronic myelocytic leukemia) (CMS/HCC) Procedures Echo, Adult Transthoracic Complete Mk Pastrana MD 800 [facility] [address] [place] [address] Phone: tel: fax: Referral ID Status Reason Start Date Expiration Date V isits Requested Visits Authorized [id number] Closed Perform Procedure 09/11/2024 03/13/2026 1 1 * Consultation (Routine) - Closed Specialty Diagnoses / Procedures Referred By Contadrián linda Referred To Contact Diagnoses CML (chronic myelocytic leukemia) (CMS/HCC) Mk Pastrana MD 800 [facility] [address] [place] [address] Phone: tel: fax: Referral ID Status Reason Start Date Expiration Date V isits Requested Visits Authorized [id number] Closed Specialty Services Required 09/11/2024 03/13/2026 1 1 * Genetic Testing (Routine) - Closed Specialty Diagnoses / Procedures Referred By Akosua linda Referred To Contact Lab Diagnoses CML (chronic myelocytic leukemia) (CMS/HCC) Procedures STR, Patient Specimen Mk Pastrana MD 800 [facility] [address] [phone] Phone: tel: fax: Referral ID Status Reason Start Date Expiration Date Visits Re quested Visits Authorized [id number] Closed 09/11/2024 03/13/2026 1 1 Encounter Details Date Type Department Care Team ([facility] Contact Info) Description 09/11/2024 Orders Only [facility] Hematology/BMT and Cellular Therapy Program [address] [place] [phone] Leo De Souza RN [facility] HEMATOLOGY PROGRAM CLINIC CML (chronic myelocytic leukemia) ([facility]/HCC) (Primary Dx) Social History Tobacco Use Types [...] CC Hematology/BMT and Cellular Therapy Program [address] [place] [phone] 10/30/2024 8:30 AM EDT Office Visit [facility] Hematology/BMT and Cellular Therapy Program [address] [place] [phone] Radha Morelos, [employer]ADER 800 [facility] [address] [phone] 11/13/2024 1:00 PM EDT Office Visit [facility] [address] [place] [phone] Verena Montes PA [address] [facility] [place] [place] [facility] [address] [place] [phone] 11/27/2024 1:30 PM EDT Clinical Support [facility] Hematology/BMT and Cellular Therapy Program [address] [phone] 11/27/2024 2:00 PM EDT Office Visit [facility] Hematology/BMT and Cellular Therapy Program [address] [phone] Mk Pastrana MD 800 [facility] [address] [place] [phone] Pending Results Name Type Priority Associated Diagnoses Date /Time STR, Patient Specimen Lab Routine CML (chronic myelocytic leukemia) ([facility]) 09/25/2024 10:23 AM EDT Scheduled Orders Name Type Priority Associated Diagnoses Orde r Schedule HLA Antibody Testing (LSA) Lab Routine CML (chronic myelocytic leukemia) ([facility]) Expected: 09/30/2024 (Approximate), Expires: 03/15/2026 STR, Patient Specimen Lab Routine CML (chronic myelocytic leukemia) ([facility]) Expected: 09/25/2024 (Approximate), Expires: 03/15/2026 Scheduled Referrals Name Type Priority Associated Diagnoses Order Schedule Ambulatory Oncology Referral to Psych ONC Counseling Outpatient Referral Routine CML (chronic myelocytic leukemia) ([facility]) Expected: 09/30/2024, Expires: 03/15/2026 documented as of this encounter Results * Pulmonary function testing (09/25/2024 4:31 PM EDT) KSY4VRE 3.21 L 09/25/2024 4:28 PM EDT VYAIRE [...] 1.98 09/25/2024 4:28 PM EDT VYAIRE PFT DRT2PCFTZKILA -0.62 09/25/2024 4:28 PM EDT VYAIRE PFT FEV1_Pre%Pred 92 % % 09/25/2024 4:28 PM EDT VYAIRE PFT FEV1 PREDAUTH US_Quanjer GLI (2011) 09/25/2024 4:28 PM EDT VYAIRE PFT FEV1 Z-SCORE -0.62 09/25/2024 4:28 PM EDT VYAIRE PFT FEV1/FVC PRE 73.32 % 09/25/2024 4:28 PM EDT VYAIRE PFT LBZ1LGMVQOC 81 09/25/2024 4:28 PM EDT VYAIRE PFT FEV1/FVC PRELLN 71 4:28 PM EDT VYAIRE PFT QAA7EKVVEKFEMXKD -1.25 09/26/19 4:28 PM EDT VYAIRE PFT PWB6WAEQWP%PRED 91 % % 4:28 PM EDT VYAIRE PFT JIF5ZGHRNPOJ US_Quanjer GLI (2011) 09/25/2024 4:28 PM EDT VYAIRE PFT QXT5CSYUJDRFU -1 09/25/2024 4:28 PM EDT VYAIRE PFT JGQ58-94% PRE 1.73 L/s 09/25/2024 4:28 PM EDT VYAIRE PFT IVK62-61%_Pred 2.51 09/25/2024 4:28 PM EDT VYAIRE PFT XYI74-36% PRELLN 1.38 09/26/19 4:28 PM EDT VYAIRE PFT VAZ2990%PREZSCORE -1.08 025 4:28 PM EDT VYAIRE PFT EWS4416%PRE%PRED 69 % % 09/26/19 4:28 PM EDT VYAIRE PFT QAN8046%[email or web address]] US_Quanjer GLI (2011) 09/25/2024 4:28 PM EDT [...] (1992) 09/25/2024 4:28 PM EDT VYAIRE PFT LDWOVIHQCJLPALOL6VOT 13.30 ml/(min* mmHg) 09/25/2024 4:28 PM EDT VYAIRE PFT DLCOSINGLEBREATH PRED 20.70 09/25/2024 4:28 PM EDT VYAIRE PFT DLCOSINGLEBREATH LLN 16.09 09/08 4:28 PM EDT VYAIRE PFT DLCOSINGLEBREATH Z-SCORE -2.83 09/25/2024 4:28 PM EDT VYAIRE PFT DLCOSINGLEBREATH % PRED 64.2 % 09/25/2024 4:28 PM EDT VYAIRE PFT DLCOSINGLEBREATH [email or web address]] Stanojevic TLCO GLI (2019) 09/25/2024 4:28 PM EDT VYAIRE PFT DLCOSINGLEBREATH Z-SCORE -2.83 09/25/2024 4:28 PM EDT VYAIRE PFT DBMVPFHAWEMEWHPTN7YV E 13.88 ml/(min* mmHg) 09/25/2024 4:28 PM EDT VYAIRE PFT DLCOCSINGLEBREATH PRED 20.70 09/25/2024 4:28 PM EDT VYAIRE PFT DLCOCSINGLEBREATH LLN 16.09 09/25/2024 4:28 PM EDT VYAIRE PFT DLCOCSINGLEBREATH Z-SCORE -2.56 09/25/2024 4:28 PM EDT VYAIRE PFT DLCOCSINGLEBREATH % PRED 67.1 % 09/25/2024 4:28 PM EDT VYAIRE PFT DLCOCSINGLEBREATH PREDAUTH Cherry TLCO GLI (2019) 09/25/2024 4:28 PM EDT VYAIRE PFT RMZEAT0BHV 2.90 ml/(min* mmHg*L) 09/25/2024 4:28 PM EDT VYAIRE PFT DLCOVAPRED 4.27 09/25/2024 4:28 PM EDT VYAIRE PFT DLCOVALLN 3.33 09/25/2024 4:28 PM EDT VYAIRE PFT DLCOVAZSCORE -2.47 09/25/2024 4:28 PM EDT VYAIRE PFT DLCOVA%PRED 68.0 % 09/25/2024 4:28 PM EDT VYAIRE PFT DLCOVAPREDAUTH Stanlibbyvic TLCO GLI (2019) 09/25/2024 4:28 PM EDT VYAIRE PFT DLCOVAZSCORE -2.47 09/25/2024 4:28 PM EDT VYAIRE PFT PRXUACLJG0QNS 3.03 ml/(min* mmHg*L) 09/25/2024 4:28 PM EDT VYAIRE PFT DLCOC SB/VA PRED 4.27 09/26/19 4:28 PM EDT VYAIRE PFT DLCOC SB/VA LLN 3.33 4:28 PM EDT VYAIRE PFT DLCOC SB/VA Z-SCORE -2.21 09/25 4:28 PM EDT VYAIRE PFT DLCOC SB/VA % PRED 71.0 % 2024 4:28 PM EDT VYAIRE PFT DLCOC SB/VA [email or web address]] Cherry TLCO GLI (2019) 09/25/2024 4:28 PM EDT VYAIRE PFT DLCOC SB/VA Z-SCORE -2.21 09/25 4:28 PM EDT VYAIRE PFT LHHMGCEAMBRBWU6DVT 4.58 L 2024 4:28 PM EDT VYAIRE PFT VASINGLEBREATH PRED 4.88 09/25 4:28 PM EDT VYAIRE PFT VASINGLEBREATH LLN 3.98 2024 4:28 PM EDT VYAIRE PFT VASINGLEBREATH Z-SCORE -0.52 09/25/2024 4:28 PM EDT VYAIRE PFT VASINGLEBREATH % PRED 94.0 % 09/25/2024 4:28 PM EDT VYAIRE PFT VASINGLEBREATH PRED[email or web address]] Cherry TLCO GLI (2019) 09/25/2024 4:28 PM EDT VYAIRE PFT VASINGLEBREATH Z-SCORE -0.52 09/25/2024 4:28 PM EDT VYAIRE PFT JEBZPGLEGMDWOUM0ABL 3.10 L 09/25 4:28 PM EDT VYAIRE PFT IVCSINGLEBREATH PRED 3.18 09/08 4:28 PM EDT VYAIRE PFT IVCSINGLEBREATH LLN 2.51 09/25 4:28 PM EDT VYAIRE PFT IVCSINGLEBREATH Z-SCORE -0.19 09/25/2024 4:28 PM EDT VYAIRE PFT IVCSINGLEBREATH % PRED 97.5 % 09/25/2024 4:28 PM EDT VYAIRE PFT IVCSINGLEBREATH PREDAUTH US_Quanjer GLI (2011) 09/25/2024 4:28 PM EDT VYAIRE PFT HB PRE 12.10 g(Hb)/dL 09/25/2024 4:28 PM EDT VYAIRE PFT UMG7OVU 5.21 L 09/25/2024 4:28 PM EDT VYAIRE [...] (2019)__ 09/25/2024 4:28 PM EDT VYAIRE PFT DWJLNWJZ2RLK 2.74 L 09/25/2024 4:28 PM EDT VYAIRE PFT FRCPLETH PRED 2.74 09/25/2024 4:28 PM EDT VYAIRE PFT FRCPLETH LLN 1.94 09/25/2024 4:28 PM EDT VYAIRE PFT FRCPLETH ULN 3.74 09/25/2024 4:28 PM EDT VYAIRE PFT FRCPLETH Z-SCORE 0.01 09/26/19 4:28 PM EDT VYAIRE PFT FRCPLETH % PRED 100.3 % 4:28 PM EDT VYAIRE PFT FRCPLETH PREDAUT[facility] Lung volumes GLI (2019)__ 09/25/2024 4:28 PM EDT VYAIRE PFT BNB3HXT 0.68 L 09/25/2024 4:28 PM EDT VYAIRE [...] (2019)__ 09/25/2024 4:28 PM EDT VYAIRE PFT RV%HUG3VTG 38.52 % 09/25/2024 4:28 PM EDT VYAIRE PFT RV%TLCPRED 30 09/25/2024 4:28 PM EDT VYAIRE PFT RV%TLCLLN 19 09/25/2024 4:28 PM EDT VYAIRE PFT RV%TLCULN 41 09/25/2024 4:28 PM EDT VYAIRE PFT RV%TLCZSCORE 1.32 09/25/2024 4:28 PM EDT VYAIRE PFT RV%TLC%PRED 130.0 % 09/25/2024 4:28 PM EDT VYAIRE PFT RV%TLCPREDAUTH [facility] Lung volumes GLI (2019)__ 09/25/2024 4:28 PM EDT VYAIRE PFT VLZ7IKP 2.89 L 09/25/2024 4:28 PM EDT VYAIRE PFT Anatomical Region Laterality Modality PFT 09/25/2024 3:47 PM EDT Narrative 09/30/2024 8:27 AM EDT Pulmonary Function Testing Report Amita Ortiz 54 y.o. underwent pulmonary function testing today at the [facility]. The patient underwent spirometry, lung volumes [...] WINDY ISCV MV A Vmax 95.4 cm/s WNIDY ISCV MV E/A 1.0 cm/s WINDY ISCV [...] Root Diam 32 mm WINDY ISCV PA ND(ACCEL) 18.7 mmHg WINDY ISCV LV Lat e' [...] is no recent study available for direct [id number]-tf-[id number] comparison. Left Ventricle The left ventricle is [...] is no recent study available for direct cfvx-vp-iwhs comparison. us Mk Pastrana MD CV ECHO [...] ECG Atrial Rate 72 BPM MUSE ECG ND Interval 122 ms MUSE ECG QRSD Interval 64 ms MUSE ECG QT Interval 406 ms MUSE ECG QTC Interval 444 ms MUSE ECG P [place] 71 degrees MUSE ECG R [place] 54 degrees MUSE ECG T Wave [place] 87 degrees MUSE ECG Diagnosis Normal sinus rhythm MUSE ECG Diagnosis Low voltage QRS MUSE ECG Diagnosis Borderline ECG MUSE ECG Diagnosis MUSE ECG Diagnosis Confirmed by Arsalan Ko ([id number]) on 09/25/2024 11:05:04 AM MUSE ECG 09/25/2024 10:3 8 AM EDT 09/25/2024 11:05 AM EDT Mk Pastrana MD ECG ORDERABLES Final Result Performing Organization Address City/[facility]/ZIP Co de Phone Number MUSE ECG * APTT (09/25/2024 10:23 AM EDT) aPTT 28 25 - 35 sec LAB COAGULATION METHOD 09/25/2024 11:00 AM EDT [facility] Blood Venous blood specimen / Unknown Venipuncture / Unknown 09/25/2024 10:23 AM EDT 09/25/2024 10:34 AM EDT Mk Pastrana MD LAB BLOOD ORDERABLES Final Re sult [facility] [address] [place] [place] [address] * Prothrombin Time/INR (09/25/2024 10:23 AM EDT) Prothrombin Time 12.7 12.0 - 14.3 sec LAB COAGULATION METHOD 09/25/2024 11:00 AM EDT [facility] INR 0.9 0.9 - 1.1 LAB COAGULATION METHOD 09/25/2024 11:00 AM EDT [facility] Blood Venous blood specimen / Unknown Venipuncture / Unknown 09/25/2024 10:23 AM EDT 09/25/2024 10:34 AM EDT Narrative [facility] - 09/25/2024 11:00 AM EDT OPTIMAL INR RANGES FOR PATIENT ON ORAL ANTICOAGULANT THERAPY Prevention of venous thromboembolism INR 2.0 to 3.0 In patients with heart disease: Atrial fibrillation INR 2.0 to 3.0 Valvular heart disease INR 2.0 to 3.0 Tissue heart valves INR 2.0 to 3.0 Mechanical prosthetic valves INR 2.5 to 3.5 Prevention of recurrent ND INR 2.5 to 3.5 us Mk Pastrana MD LAB BLOOD ORDERABLES Final Re sult [facility] [address] [place] [address] * Toxoplasma gondii antibody, IgG (09/25/2024 10:23 AM EDT) Pathologist [facility] TOXOPLASMA IGG AB 3.7 <=8.8 IU/mL 09/27/2024 1:29 AM EDT [facility] ([facility]) Blood Venous blood specimen / Unknown Venipuncture / Unknown 09/25/2024 10:23 AM EDT 09/25/2024 10:34 AM EDT Narrative [facility] ([facility]) - 09/27/2024 1:29 AM EDT [...] the amount of antibody present. Performed By: [facility] [address] [place] [address] Dry Janitor: Sunil Gomez MD, PhD CLIA Number: [id number] us Mk Pastrana MD LAB BLOOD ORDERABLES Final Re sult [facility] ([place]) [address] [place] [address] * Stanislaw Fontanez Virus (EBV) Quantitative PCR (09/25/2024 10:23 AM EDT) Stanislaw Fontanez Virus, Blood, Quant DNA Interpretation Not Detected Not Detected 10/01/2024 6:35 AM EDT [facility] Blood Venous blood specimen / Unknown Venipuncture / Unknown 09/25/2024 10:23 AM EDT 09/25/2024 10:34 AM EDT Narrative [facility] - 10/01/2024 6:35 AM EDT [...] developed and it's performance characteristics determined by [facility] as appropriate for clinical purposes. [...] developed and it's performance characteristics determined by [facility] as appropriate for clinical purposes. This assay has not been cleared or approved by the FDA, but is performed in a CLIA regulated laboratory that is qualified to perform high-complexity testing. Mk Pastrana MD LAB BLOOD ORDERABLES Final Re sult Performing Organization Address [facility]/ZIP Co de Phone Number [facility] [address] [place] [address] * (ABNORMAL) Ferritin (09/25/2024 10:23 AM EDT) Ferritin, Serum 294(H) 13 - 150 ng/mL 09/25/2024 11:17 AM EDT [facility] Blood Venous blood specimen / Unknown Venipuncture / Unknown 09/25/2024 10:23 AM EDT 09/25/2024 10:35 AM EDT Mk Pastrana MD LAB BLOOD ORDERABLES Final Re sult Performing Organization Address [facility] [place] [address] * LDH (09/25/2024 10:23 AM EDT) LDH, Plasma 192 116 - 250 U/L 09/25/2024 11:17 AM EDT [facility] Blood Venous blood specimen / Unknown Venipuncture / Unknown 09/25/2024 10:23 AM EDT 09/25/2024 10:34 AM EDT Mk Pastrana MD LAB BLOOD ORDERABLES Final Re sult Performing Organization Address City/[facility] Co de Phone Number [facility] [address] [place] [address] * Thyroid Stimulating Hormone, Plasma (09/25/2024 10:23 AM EDT) Thyroid Stimulating Hormone, Plasma 1.01 0.40 - 4.20 uIU/mL 09/25/2024 11:17 AM EDT [facility] Blood Venous blood specimen / Unknown Venipuncture / Unknown 09/25/2024 10:23 AM EDT 09/25/2024 10:34 AM EDT Narrative [facility] - 09/25/2024 11:17 AM EDT Trimester Specific Ranges TSH ( IU/mL) 1st Trimester 0.1 - 3.0 2nd Trimester 0.19 - 4.06 3rd Trimester 0.3 - 3.7 Mk Pastrana MD LAB BLOOD ORDERABLES Final Re sult Performing Organization Address City/[facility]/ZIP Co de Phone Number [facility] [address] [place] [address] * ABO/Rh Type (09/25/2024 10:23 AM EDT) ABO/Rh AB Positive 09/25/2024 10:12 AM EDT BLOOD BANK Blood Venous blood specimen / Unknown Venipuncture / Unknown 09/25/2024 10:23 AM EDT 09/25/2024 10:39 AM EDT Mk Pastrana MD LAB BLOOD BANK TEST ORDERABLE S Final Result Performing Organization Address City/[facility] Co de Phone Number BLOOD BANK [address] [place] [address], [place] * CMP (09/25/2024 10:23 AM EDT) Glucose, Plasma 85 74 - 99 mg/dL 09/25/2024 11:17 AM EDT [facility] BUN, Plasma 12 7 - 21 mg/dL 09/25/2024 11:17 AM EDT [facility] Creatinine, Plasma 0.65 0.60 - 1.10 mg/dL 09/25/2024 11:17 AM EDT [facility] BUN/Creatinine Ratio 18 09/25/2024 11:17 AM EDT [facility] Sodium, Plasma 140 136 - 145 mmol/L 09/25/2024 11:17 AM EDT [facility] Potassium, Plasma 4.3 3.6 - 4.9 mmol/L 09/25/2024 11:17 AM EDT [facility] Chloride, Plasma 106 97 - 107 mmol/L 09/25/2024 11:17 AM EDT [facility] CO2, Plasma 23 22 - 29 mmol/L 09/25/2024 11:17 AM EDT [facility] Anion Gap 11 6 - 16 mmol/L 09/25/2024 11:17 AM EDT [facility] Total Calcium, Plasma 9.7 8.9 - 10.2 mg/dL 09/25/2024 11:17 AM EDT [facility] Total Protein 7.7 6.3 - 7.9 g/dL 09/25/2024 11:17 AM EDT [facility] Albumin, Plasma 4.8 3.5 - 5.2 g/dL 09/25/2024 11:17 AM EDT [facility] AST, Plasma 17 10 - 35 U/L 09/25/2024 11:17 AM EDT [facility] ALT, Plasma 12 10 - 35 U/L 09/25/2024 11:17 AM EDT [facility] Alkaline Phosphatase, Plasma 100 35 - 104 U/L 09/25/2024 11:17 AM EDT [facility] Total Bilirubin, Plasma 0.8 0.2 - 1.1 mg/dL 09/25/2024 11:17 AM EDT [facility] eGFRcr 106.1 mL/min/1.7 3m*2 09/25/2024 11:17 AM EDT [facility] Comment:Reported eGFRcr in m L/min/1.73m2 is based the CKD-EPI 2020 equation that does not use a race coefficient. Blood Venous blood specimen / Unknown Venipuncture / Unknown 09/25/2024 10:23 AM EDT 09/25/2024 10:34 AM EDT us Mk Pastrana MD LAB BLOOD ORDERABLES Final Re sult [facility] [address] [place] [address] * (ABNORMAL) CBC and Differential (09/25/2024 10:23 AM EDT) WBC Count 1.98(L) 3.70 - 10.30 10*3/uL LAB HEMATOLOGY METHOD 09/25/2024 11:15 AM EDT [facility] RBC Count 3.68(L) 3.90 - 5.20 10*6/uL LAB HEMATOLOGY METHOD 09/25/2024 11:15 AM EDT [facility] HGB 12.1 11.2 - 15.7 g/dL LAB HEMATOLOGY METHOD 09/25/2024 11:15 AM EDT [facility] HCT 35.4 34.0 - 45.0 % LAB HEMATOLOGY METHOD 09/25/2024 11:15 AM EDT [facility] Platelet Count 61(L) 155 - 369 10*3/uL LAB HEMATOLOGY METHOD 09/25/2024 11:15 AM EDT [facility] MCV 96 79 - 98 fL LAB HEMATOLOGY METHOD 09/25/2024 11:15 AM EDT [facility] MCH 32.9(H) 26.0 - 32.0 pg LAB HEMATOLOGY METHOD 09/25/2024 11:15 AM EDT [facility] MCHC 34.2 30.7 - 35.5 g/dL LAB HEMATOLOGY METHOD 09/25/2024 11:15 AM EDT [facility] RDW 17.5(H) 11.5 - 14.5 % LAB HEMATOLOGY METHOD 09/25/2024 11:15 AM EDT [facility] MPV 11.0 8.8 - 12.5 fL LAB HEMATOLOGY METHOD 09/25/2024 11:15 AM EDT [facility] nRBC 0.0 <=0.0 per 100 WBCs LAB HEMATOLOGY METHOD 09/25/2024 11:15 AM EDT [facility] Differential Type Automated LAB HEMATOLOGY METHOD 09/25/2024 11:15 AM EDT [facility] Neutrophils % 21 % LAB HEMATOLOGY METHOD 09/25/2024 11:15 AM EDT [facility] Lymphocytes % 73 % LAB HEMATOLOGY METHOD 09/25/2024 11:15 AM EDT [facility] Monocytes % 4 % LAB HEMATOLOGY METHOD 09/25/2024 11:15 AM EDT [facility] Eosinophils % 1 % LAB HEMATOLOGY METHOD 09/25/2024 11:15 AM EDT [facility] Basophils % 1 % LAB HEMATOLOGY METHOD 09/25/2024 11:15 AM EDT [facility] Immature Granulocytes % 0 % LAB HEMATOLOGY METHOD 09/25/2024 11:15 AM EDT [facility] Neutrophils Absolute 0.42(LL) 1.60 - 6.10 10*3/uL LAB HEMATOLOGY METHOD 09/25/2024 11:15 AM EDT [facility] Lymphocytes Absolute 1.46 1.20 - 3.90 10*3/uL LAB HEMATOLOGY METHOD 09/25/2024 11:15 AM EDT [facility] Monocytes Absolute 0.07(L) 0.30 - 0.90 10*3/uL LAB HEMATOLOGY METHOD 09/25/2024 11:15 AM EDT [facility] Eosinophils Absolute 0.02 0.00 - 0.50 10*3/uL LAB HEMATOLOGY METHOD 09/25/2024 11:15 AM EDT [facility] Basophils Absolute 0.01 0.00 - 0.10 10*3/uL LAB HEMATOLOGY METHOD 09/25/2024 11:15 AM EDT [facility] Immature Granulocytes Absolute 0.00 0.00 - 0.06 10*3/uL LAB HEMATOLOGY METHOD 09/25/2024 11:15 AM EDT [facility] Blood Venous blood specimen / Unknown Venipuncture / Unknown 09/25/2024 10:23 AM EDT 09/25/2024 10:34 AM EDT Narrative [facility] - 09/25/2024 11:15 AM EDT Therapeutic decision making should be based on absolute values, rather than percentages. Mk Pastrana MD LAB BLOOD ORDERABLES Final Re sult [facility] [address] [place] [address] documented in this encounter Visit Diagnoses Diagnosis CML (chronic myelocytic leukemia) (CMS/HCC)- Primary Chronic myeloid leukemia, without mention of having achieved remission CML (chronic myelocytic leukemia) (CMS/HCC) Chronic myeloid leukemia, without mention of having achieved remission CML (chronic myelocytic leukemia) (CMS/HCC) Chronic myeloid leukemia, without mention of having achieved remission documented in this encounter Additional Health Concerns Assessment Noted Time A Body Mass Index follow-up plan has been documented for the patient 09/11/2024 6:12 PM EDT documented as of this encounter Care Teams Mechanic General Operational Test Relationship Specialty Start Date End Date Willi Frost MD [address] [place] [id number] [address] [place] [address] PCP - General 06/11/24 documented as of this encounter
--- OUTSIDE RECORDS SUMMARY | 2024-10-15 12:37 | XMS_ITS | Encounter Summary ---
Author Organization [facility] Address [address] [place] [address] Care Team Providers Care Gang Ripsaw Operator Name Role Phone Willi Frost MD Primary Care Provider [phone] Encounter Details Date Type Department Care Team ([facility] Contact Info) Description 08/28/2024 Orders Only [facility] CC Hematology/BMT and Cellular Therapy Program [address] [place] [phone] Jojo Iyer, PharmD 800 [place] [address] CML (chronic myelocytic leukemia) (CMS/HCC) [...] Upcoming Encounters Date Type Department Care Team ([facility] Contact Info) Description 10/30/2024 8:00 AM EDT Clinical Support [facility] CC Hematology/BMT and Cellular Therapy Program 750 [facility], [address] [place] [address] [place] [address] 10/30/2024 8:30 AM EDT Office Visit [facility] CC Hematology/BMT and Cellular Therapy Program [address] [phone] Radha Morelos, MARCY 800 [facility] [address] [phone] 11/13/2024 1:00 PM EDT Office Visit [facility] [address] [place] [address] Verena Montes PA 3101 [facility] 100 [place] [address] 11/27/2024 1:30 PM EDT Clinical Support PAV Hematology/BMT and Cellular Therapy Program [address] [place] [phone] 11/27/2024 2:00 PM EDT Office Visit [facility]AV Hematology/BMT and Cellular Therapy Program [address] [place] [phone] Mk Pastrana MD 800 [facility] [address] [place] [phone] documented as of this encounter Visit Diagnoses Diagnosis CML (chronic myelocytic leukemia) (CMS/HCC)- Primary Chronic myeloid leukemia, without mention of having achieved remission documented in this encounter Additional Health Concerns Assessment Noted Time A Body Mass Index follow-up plan has been documented for the patient 08/28/2024 5:28 PM EDT documented as of this encounter Care Teams Gang Ripsaw Operator Relationship Specialty Start Date End Date Willi Frost MD [facility] [address] [facility] [address] [place] [address] PCP - General 06/11/24 documented as of this encounter
--- OUTSIDE RECORDS SUMMARY | 2024-10-15 12:37 | XMS_ITS | Encounter Summary ---
Author Organization [facility] Address [address] [id number] Care Team Providers Care Risk Analyst Name Role Phone Willi Frost MD Primary Care Provider Reason for Visit * Reason Comments Social Work/navigation Follow-up Encounter Details Date Type Department Care Team ([facility] st Contact Info) Description 08/28/2024 Social Work Psych Oncology 800 [place] [address] [place] [address] Social History Tobacco Use Types Packs/Day Years [...] Call Disease Status: Established Patient Clinic Location: [facility] Disease Type: Leukemia Services Provided: Financial Support, Psychosocial Monitoring Intervention Level: 2 Units (1 unit = 15 minutes): 1 Narrative: MITER CUTTER spoke with patient via phone to follow up on assistance from LLS. She was informed that Patient Aid eric is pending need for identity verification. It is likely that application is pending because of recent move in the last year as patient relocated from [place]. She is informed thattypically photo identification is uploaded but ID in record does not match current address in [place]. MITER CUTTER went over alternative options and it was determined [facility]. Patient shared she is either going to send MITER CUTTER via email or provide during her RTC on 09/10. She was encouraged to reach out for on-going supportive needs as they arise. documented in this encounter Plan of Treatment Upcoming Encounters Date Type Department Care Team ([facility] Contact Info) Description 10/30/2024 8:00 AM EDT Clinical Support [facility] CC Hematology/BMT and Cellular Therapy Program [address] [place] [phone] 10/30/2024 8:30 AM EDT Office Visit [facility] CC Hematology/BMT and Cellular Therapy Program [address] [phone] Radha Morelos, MARCY 800 [facility] [address] [place] [phone] 11/13/2024 1:00 PM EDT Office Visit [address] [phone] Verena Montes PA [address] [place] [phone] 11/27/2024 1:30 PM EDT Clinical Support [facility] CC Hematology/BMT and Cellular Therapy Program [address] [phone] 11/27/2024 2:00 PM EDT Office Visit [facility] CC Hematology/BMT and Cellular Therapy Program [address] [phone] Mk Pastrana MD [address] [facility] [address] [place] [phone] documented as of this encounter Visit Diagnoses Not on filedocumented in this encounter Additional Health Concerns Assessment Noted Time A Body Mass Index follow-up plan has been documented for the patient 08/28/2024 5:28 PM EDT documented as of this encounter Care Teams Risk Analyst Relationship Specialty Start Date End Date Willi Frost MD [address] [place] [address] 1100 [place] [address] PCP - General 06/11/24 documented as of this encounter
--- OUTSIDE RECORDS SUMMARY | 2024-10-15 12:37 | XMS_ITS | Encounter Summary ---
Author Organization [facility] Address [address] [id number] Care Team Providers Care Community Service Technician Name Role Phone Willi Frost MD Primary Care Provider Reason for Visit * Reason Comments Social Work/navigation Follow-up Encounter Details Date Type Department Care Team ([facility] Contact Info) Description 09/19/2024 Social Work Psych Oncology 800 [place] [address] [place] [address] Social History Tobacco Use Types Packs/Day Years [...] Clinician Note - Michelle Gamez LCSW - 09/19/2024 11:59 PM EDT Encounter Type: Phone Call Disease Status: Established Patient Clinic Location: [facility] Disease Type: Leukemia Services Provided: Financial Support, Financial Toxicity Intervention Level: 2 Units (1 unit = 15 minutes): 2 Narrative: Patient contacted [facility] via phone regarding POI needed for LLS funds. Patient did bring to [facility] on 09/10 but [facility] was unable to connect with patient. She says she along with her daughter will bring it work-up appts on 09/24 and 09/25 and this will be sent to S. EASTER BUNNY also brought up psychosocial interview on 09/25 and how elly through [facility] can be pursued now that we are closer to transplant time. Patient was advised for she along with her daughter should try to come prepared with ideas of what [facility] elly could be must useful for as this can be used towards to financial strain that as she moves forward with transplant. Application will look for idea of lists v. expenses currently in the household. Patient was grateful and appreciative of conversation. EASTER BUNNY to remain available for supportive needs as they arise. documented in this encounter Plan of Treatment Upcoming Encounters Date Type Department Care Team ([facility] st Contact Info) Description 10/30/2024 8:00 AM EDT Clinical Support [facility] CC Hematology/BMT and Cellular Therapy Program [address] [place] [phone] 10/30/2024 8:30 AM EDT Office Visit [facility] CC Hematology/BMT and Cellular Therapy Program [address] [place] [phone] Radha Morelos, MARCY 800 [facility] [address] [place] [phone] 11/13/2024 1:00 PM EDT Office Visit [facility] 3101 [place] [address] Verena Montes PA 3101 [facility] Rojas 100 [place] [phone] 11/27/2024 1:30 PM EDT Clinical Support [facility] CC Hematology/BMT and Cellular Therapy Program [address] [phone] 11/27/2024 2:00 PM EDT Office Visit [facility] Hematology/BMT and Cellular Therapy Program [address] [place] [address] [place] [address] Mk Pastrana MD 800 [facility] [address] [place] [phone] documented as of this encounter Visit Diagnoses Not on filedocumented in this encounter Additional Health Concerns Assessment Noted Time A Body Mass Index follow-up plan has been documented for the patient 09/11/2024 6:12 PM EDT documented as of this encounter Care Teams Community Service Technician Relationship Specialty Start Date End Date Willi Frost MD [address] [place] [address] 1100 [place] [address] PCP - General 06/11/24 documented as of this encounter
--- OUTSIDE RECORDS SUMMARY | 2024-10-15 12:37 | XMS_ITS | Encounter Summary ---
Author Organization [facility] Address [address] [place] [address] Care Team Providers Care Rn Burn Name Role Phone Willi Frost MD Primary Care Provider Encounter Details Date Type Department Care Team (Latest Contact Info) Description 10/02/2024 Travel Social History Tobacco Use Types Packs/Day [...] Hematology/BMT and Cellular Therapy Program [address] [phone] 10/30/2024 8:30 AM EDT Office Visit [facility] CC Hematology/BMT and Cellular Therapy Program [address] [phone] Radha Morelos, SKEIN STRAIGHTENER 800 [facility] [address] [place] [phone] 11/13/2024 1:00 PM EDT Office Visit [facility] 3101 [place] [address] Verena Montes PA 3101 [facility] [address] [place] [address] 11/27/2024 1:30 PM EDT Clinical Support [facility] CC Hematology/BMT and Cellular Therapy Program [address] [phone] 11/27/2024 2:00 PM EDT Office Visit [facility] CC Hematology/BMT and Cellular Therapy Program [address] [phone] Mk Pastrana MD 800 [facility] [address] [place] [phone] documented as of this encounter Visit Diagnoses Not on filedocumented in this encounter Additional Health Concerns Assessment Noted Time A Body Mass Index follow-up plan has been documented for the patient 09/11/2024 6:12 PM EDT documented as of this encounter Care Teams Rn Burn Relationship Specialty Start Date End Date Willi Frost MD [address] [place] [address] 1100 [place] [address] PCP - General 06/11/24 documented as of this encounter
--- OUTSIDE RECORDS SUMMARY | 2024-10-15 12:37 | XMS_ITS | Encounter Summary ---
Author Organization [facility] Address [address] [place] [address] Care Team Providers Care Mortuary Technician Name Role Phone Willi Frost MD Primary Care Provider [phone] Encounter Details Date Type Department Care Team [...] Hematology/BMT and Cellular Therapy Program [address] [phone] 10/30/2024 8:30 AM EDT Office Visit [facility] CC Hematology/BMT and Cellular Therapy Program [address] [phone] Radha Morelos, MINE INSPECTOR FEDERAL 800 [facility] [address] [place] [phone] 11/13/2024 1:00 PM EDT Office Visit [facility] 3101 [facility] [place] [address] Verena Montes PA 3101 [facility] [address] [place] [address] 11/27/2024 1:30 PM EDT Clinical Support [facility] CC Hematology/BMT and Cellular Therapy Program [address] [phone] 11/27/2024 2:00 PM EDT Office Visit [facility] CC Hematology/BMT and Cellular Therapy Program [address] [phone] Mk Pastrana MD 800 [facility] [address] [place] [phone] documented as of this encounter Visit Diagnoses Not on filedocumented in this encounter Care Teams Mortuary Technician Relationship Specialty Start Date End Date Willi Frost MD [address] [facility] [address] [place] [address] PCP - General 06/11/24 documented as of this encounter
--- OUTSIDE RECORDS SUMMARY | 2024-10-15 12:37 | XMS_ITS | Encounter Summary ---
Author Organization [facility] Address [address] [place] [address] Care Team Providers Care Medical Social Consultant Name Role Phone Willi Frost MD Primary Care Provider [phone] Reason for Visit * Reason Onset Date Comments critical lab 08/28/2024 Encounter Details Date Type Department Care Team (Late st Contact Info) Description 08/28/2024 Telephone [facility] CC Hematology/BMT and Cellular Therapy Program [address] [place] [address] Jocelin Ahuja, RN [facility] AMB SERV ADMIN critical lab Social History [...] be getting antibiotics before extraction. Callback number: [phone] * Clinician Note - Jocelin Ahuja RN - 08/28/2024 10:34 AM EDT RN received critical labs platelet count 47 documented in this encounter Plan of Treatment Upcoming Encounters Date Type Department Care Team ([facility] st Contact Info) Description 10/30/2024 8:00 AM EDT Clinical Support [facility] CC Hematology/BMT and Cellular Therapy Program [address] [phone] 10/30/2024 8:30 AM EDT Office Visit [facility] CC Hematology/BMT and Cellular Therapy Program [address] [phone] Radha Morelos APRN 800 [facility] [address] [place] [phone] 11/13/2024 1:00 PM EDT Office Visit [facility] [address] [place] [phone] [place] [address] [place] [address] 100 [place] [address] 11/27/2024 1:30 PM EDT Clinical Support [facility] CC Hematology/BMT and Cellular Therapy Program [address] [phone] 11/27/2024 2:00 PM EDT Office Visit [facility] CC Hematology/BMT and Cellular Therapy Program [address] [phone] Mk Pastrana MD 800 [facility] [address] [place] [phone] documented as of this encounter Visit Diagnoses Not on filedocumented in this encounter Additional Health Concerns Assessment Noted Time A Body Mass Index follow-up plan has been documented for the patient 08/28/2024 5:28 PM EDT documented as of this encounter Care Teams Medical Social Consultant Relationship Specialty Start Date End Date Willi Frost MD [address] [place] [address] 1100 [place] [address] PCP - General 06/11/24 documented as of this encounter
--- OUTSIDE RECORDS SUMMARY | 2024-10-15 12:37 | XMS_ITS | Encounter Summary ---
Author Organization [facility] Address [address] [place] [address] Care Team Providers Care Picker Name Role Phone Willi Frost MD Primary [...] CC Hematology/BMT and Cellular Therapy Program [address] [phone] 10/30/2024 8:30 AM EDT Office Visit [facility] CC Hematology/BMT and Cellular Therapy Program [address] [phone] Radha Morelos, SPORTS PHOTOGRAPHER 800 [facility] [address] [place] [phone] 11/13/2024 1:00 PM EDT Office Visit [facility] 3101 [facility] [place] [address] Verena Montes PA 3101 [facility] [address] [place] [address] 11/27/2024 1:30 PM EDT Clinical Support [facility] CC Hematology/BMT and Cellular Therapy Program [address] [phone] 11/27/2024 2:00 PM EDT Office Visit [facility] CC Hematology/BMT and Cellular Therapy Program [address] [phone] Mk Pastrana MD 800 [facility] [address] [place] [phone] documented as of this encounter Visit Diagnoses Not on filedocumented in this encounter Care Teams Picker Relationship Specialty Start Date End Date Willi Frost MD [address] [facility] [address] [place] [address] PCP - General 06/11/24 documented as of this encounter
--- OUTSIDE RECORDS SUMMARY | 2024-10-15 12:38 | XMS_ITS | Encounter Summary ---
Author Organization [facility] Address [address] [place] [address] Care Team Providers Care Html Web Developer Name Role Phone Willi Frost MD Primary Care Provider Encounter Details Date Type Department Care Team (Late Contact Info) Description 06/26/2024 Lab Requisition [facility] A Blood Bank 800 [place] [address] Moises Estrada MD 800 [place] [address] General medical exam Social History Tobacco Use [...] Hematology/BMT and Cellular Therapy Program [address] [place] [address] 10/30/2024 8:30 AM EDT Office Visit [facility] CC Hematology/BMT and Cellular Therapy Program [address] [place] [phone] Radha Morelos, CONTRACT PROJECT MANAGER 800 [facility] [address] [place] [phone] 11/13/2024 1:00 PM EDT Office Visit [facility] 3101 [facility] [place] [address] Verena Montes PA [address]01 [facility] [address] [place] [address] 11/27/2024 1:30 PM EDT Clinical Support [facility] CC Hematology/BMT and Cellular Therapy Program [address] [place] [phone] 11/27/2024 2:00 PM EDT Office Visit [facility] CC Hematology/BMT and Cellular Therapy Program [address] [phone] Mk Pastrana MD 800 [facility] [address] [place] [phone] documented as of this encounter Procedures Procedure [...] ORDERAB LES Final Result BLOOD BANK 800 [place] [address], [place] * Bill Only Isoagglutinin Titer (06/24/2024 11:26 AM EDT) Blood Bank Lab Only (Blood Bank Lab Only) 06/24/2024 11:26 AM EDT 06/26/2024 8:52 AM EDT us Moises Estrada MD LAB BLOOD BANK TEST ORDERAB LES Final Result Performing Organization Address [facility] de Phone Number BLOOD BANK [address] [place] [address], * Bill Only Isoagglutinin Titer (06/24/2024 11:26 AM EDT) Blood Bank Lab Only (Blood Bank Lab Only) 06/24/2024 11:26 AM EDT 06/26/2024 8:52 AM EDT us Moises Estrada MD LAB BLOOD BANK TEST ORDERAB LES Final Result Performing Organization Address [facility] de Phone Number BLOOD [address] documented in this encounter Visit Diagnoses Diagnosis General medical exam Unspecified general medical examination documented in this encounter Care Teams Html Web Developer Relationship Specialty Start Date End Date Willi Frost MD [address] [place] [address] PCP - General 06/11/24 documented as of this encounter
--- OUTSIDE RECORDS SUMMARY | 2024-10-15 12:38 | XMS_ITS | Encounter Summary ---
Author Organization [facility] Address [address] [place] [address] Care Team Providers Care Grinder Set Up Operator Thread Name Role Phone Willi Frost MD Primary Care Provider [phone] Encounter Details Date Type Department Care Team (Late Contact Info) Description 08/13/2024 Lab Requisition P[facility] H Lab 800 [place] [phone] Mk Pastrana MD 800 [facility] [address] [place] [phone] Chronic myeloid leukemia, BCR/ABL-positive, not having achieved [...] CC Hematology/BMT and Cellular Therapy Program [address] [phone] 10/30/2024 8:30 AM EDT Office Visit [facility] CC Hematology/BMT and Cellular Therapy Program [address] [place] [phone] Radha Morelos, MARCY 800 [facility] [address] [place] [phone] 11/13/2024 1:00 PM EDT Office Visit [facility] [address]01 [place] [address] Verena Montes PA [address] [facility] [address] [place] [address] 11/27/2024 1:30 PM EDT Clinical Support [facility] CC Hematology/BMT and Cellular Therapy Program [address] [place] [phone] 11/27/2024 2:00 PM EDT Office Visit [facility] CC Hematology/BMT and Cellular Therapy Program [address] [place] [phone] Mk Pastrana MD 800 [facility] [address] [place] [phone] documented as of this encounter Procedures Procedure Name Priority Date/Time Associated Diagnosis Comments [facility] DONOR SEARCH AND CELL ACQUISITION Routine 06/24/2024 9:00 AM EDT Chronic myeloid leukemia, BCR/ABL-positive, 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) documented in this encounter Results * [facility] Donor Search and Cell Acquisition (06/24/2024 9:00 AM EDT) Service [facility] Management of Unrelated Donor Search 08/13/2024 10:02 PM EDT [facility] Service Date: 06/24/2024 08/13/2024 10:02 PM EDT [facility] Invoice No.: [id number] 08/13/2024 10:02 PM EDT [facility] Grid Number [id number] 08/13/2024 10:02 PM EDT [facility] NMDP (NMDP Donor Search ) 06/24/2024 9:00 AM EDT 08/13/2024 9:59 PM EDT us Mk Pastrana MD LAB BLOOD ORDERABLES Final Re sult [facility] [address] [place] [address] documented in this encounter Visit Diagnoses Diagnosis Chronic myeloid leukemia, BCR/ABL-positive, 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) documented in this encounter Care Teams Grinder Set Up Operator Thread Relationship Specialty Start Date End Date Willi Frost MD [address] [place] [address] 1100 [place] [address] PCP - General 06/11/24 documented as of this encounter
--- OUTSIDE RECORDS SUMMARY | 2024-10-15 12:38 | XMS_ITS | Encounter Summary ---
Author Organization [facility] Address [address] [place] [address] Care Team Providers Care Petroleum Refinery Worker Name Role Phone Willi Frost MD Primary Care Provider [phone] Encounter Details Date Type Department Care Team (Late Contact Info) Description 06/25/2024 Lab Requisition [facility] [address] [place] [phone] Dary Vincent, SYSTEMS PLANNER 800 [facility] [address] [place] [phone] Chronic myeloid leukemia, BCR/ABL-positive, not having achieved [...] Hematology/BMT and Cellular Therapy Program [address] [place] [address] 10/30/2024 8:30 AM EDT Office Visit [facility] Hematology/BMT and Cellular Therapy Program [address] [place] [phone] Radha Morelos, SYSTEMS PLANNER 800 [facility] [address] [place] [phone] 11/13/2024 1:00 PM EDT Office Visit [facility] [address] [place] [address] Verena Montes PA 3101 [facility] [address] [place] [address] 11/27/2024 1:30 PM EDT Clinical Support [facility] Hematology/BMT and Cellular Therapy Program [address] [place] [phone] 11/27/2024 2:00 PM EDT Office Visit [facility] Hematology/BMT and Cellular Therapy Program [address] [place] [phone] Mk Pastrana MD 800 [facility] [address] [place] [phone] documented as of this encounter Procedures [...] 11:26 AM EDT 06/25/2024 1:01 PM EDT us Dary E Vincent SYSTEMS PLANNER LAB BLOOD ORDERABLES Final Result Performing Organization Address [facility] Co de Phone Number [facility] [address] * HLA Typing, Donor (HLATWD) (06/24/2024 11:26 AM EDT) HLA Lab Only (HLA Lab Only) 06/24/2024 11:26 AM EDT 06/25/2024 1:01 PM EDT Dary E Vincent SYSTEMS PLANNER LAB BLOOD ORDERABLES Final Result Performing Organization Address [facility] de Phone Number [facility] [address] documented in this encounter Visit Diagnoses Diagnosis Chronic myeloid leukemia, BCR/ABL-positive, 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) documented in this encounter Care Teams Petroleum Refinery Worker Relationship Specialty Start Date End Date Willi Frost MD [address] [place] [address] [address] [place] [address] PCP - General 06/11/24 documented as of this encounter
--- OUTSIDE RECORDS SUMMARY | 2024-10-15 12:38 | XMS_ITS | Encounter Summary ---
Author Organization [facility] Address [address] [place] [address] Care Team Providers Care Machine Plaster Mixer Name Role Phone Willi Frost MD Primary [...] Hematology/BMT and Cellular Therapy Program [address] [phone] 10/30/2024 8:30 AM EDT Office Visit [facility] Hematology/BMT and Cellular Therapy Program [address] [phone] Radha Morelos, TRAUMA DOCTOR 800 [facility] [address] [place] [phone] 11/13/2024 1:00 PM EDT Office Visit [facility] [address] [place] [address] Verena Montes PA 3101 [facility] [address] [place] [address] 11/27/2024 1:30 PM EDT Clinical Support [facility] Hematology/BMT and Cellular Therapy Program [address] [address] 11/27/2024 2:00 PM EDT Office Visit [facility] CC Hematology/BMT and Cellular Therapy Program [address] [phone] Mk Pastrana MD 800 [facility] [address] [place] [phone] documented as of this encounter Visit Diagnoses Not on filedocumented in this encounter Additional Health Concerns Assessment Noted Time A Body Mass Index follow-up plan has been documented for the patient 08/28/2024 5:28 PM EDT documented as of this encounter Care Teams Machine Plaster Mixer Relationship Specialty Start Date End Date Willi Frost MD [address] [place] [address] [address] [place] [address] PCP - General 06/11/24 documented as of this encounter
--- OUTSIDE RECORDS SUMMARY | 2024-10-15 12:38 | XMS_ITS | Encounter Summary ---
Author Organization [facility] Address [address] [place] [address] Care Team Providers Care Rn Long Term Care Name Role Phone Willi Frost MD Primary [...] Hematology/BMT and Cellular Therapy Program [address] [phone] 10/30/2024 8:30 AM EDT Office Visit [facility] Hematology/BMT and Cellular Therapy Program [address] [phone] Radha Morelos, RESIDENTIAL ELECTRICIAN 800 [facility] [address] [place] [phone] 11/13/2024 1:00 PM EDT Office Visit [facility] [address] [place] [address] Verena Montes PA 3101 [facility] [address] [place] [address] 11/27/2024 1:30 PM EDT Clinical Support [facility] Hematology/BMT and Cellular Therapy Program [address] [place] [address] 11/27/2024 2:00 PM EDT Office Visit [facility] CC Hematology/BMT and Cellular Therapy Program [address] [phone] Mk Pastrana MD 800 [facility] [address] [place] [phone] documented as of this encounter Visit Diagnoses Not on filedocumented in this encounter Additional Health Concerns Assessment Noted Time A Body Mass Index follow-up plan has been documented for the patient 08/28/2024 5:28 PM EDT documented as of this encounter Care Teams Rn Long Term Care Relationship Specialty Start Date End Date Willi Frost MD [address] [place] [address] [address] [place] [address] PCP - General 06/11/24 documented as of this encounter
[2024-10-15 12:49] LABS: Hematocrit 37.9 % (37.0-47.0); Hemoglobin 12.6 g/dL (12.2-16.2); Immature Granulocytes % 1.9 %; Mean Corpuscular HGB Conc 33.2 g/dL (31.8-35.4); Mean Corpuscular Hemoglobin 33.2 pg (27.0-31.2); Mean Corpuscular Volume 100.0 fl (81-99); Nucleated Red Blood Cells % 0 %; Platelet Count 161 K/mm3 (142-424); Red Blood Count 3.79 M/mm3 (4.20-5.40); Red Cell Distribution Width-SD 63.8 fL; White Blood Count 3.1 K/mm3 (4.8-10.8)
== END 2024-10-15 23:59 | disposition home or self-care (01) ==
LOC: LAB 12:34
PROVIDERS: PCP Family Medicine; Visit Provider Internal Medicine Medical Oncology
DX: C92.10 Chronic myeloid leukemia, BCR/ABL-positive, not having achieved remission (principal)
CPT/HCPCS: 36415; 85025

== ENCOUNTER 2024-10-22 12:24 | Outpatient (CLI) | payer MEDICAID, SELFPAY ==
--- OUTSIDE RECORDS SUMMARY | 2024-08-28 08:29 | XMS_ITS | Encounter Summary ---
Author Organization [facility] Address [address] [place] [address] Care Team Providers Care Hydropulper Operator Name Role Phone Willi Frost MD Primary Care Provider [phone] Reason for Referral * Imaging (Routine) - Closed Specialty Diagnoses / Procedures Referred By Contac t Referred To Contact Radiology Diagnoses CML (chronic myelocytic leukemia) (CMS/HCC) Hyperbilirubinemia Hepatosplenomegaly Procedures US Abdomen Focused Region Liver, Spleen Mk Pastrana MD 800 [facility] [address] [address] Phone: tel: fax: Referral ID Status Reason Start Date Expiration Date Visits Re quested Visits Authorized [id number] Closed 08/20/2024 02/19/2026 1 1 Reason for Visit * Imaging (Routine) - Closed Specialty Diagnoses / Procedures Referred By Contadrián t Referred To Contact Radiology Diagnoses CML (chronic myelocytic leukemia) (CMS/HCC) Hyperbilirubinemia Hepatosplenomegaly Procedures US Abdomen Focused Region Liver, Spleen Mk Pastrana MD 800 [facility] [address] [address] Phone: tel: fax: Referral ID Status Reason Start Date Expiration Date Visits Re quested Visits Authorized [id number] Closed 08/20/2024 02/19/2026 1 1 Encounter Details Date Type Department Care Team (Latest Contact Info) Description 08/28/2024 8:29 AM EDT - 08/28/2024 11:59 PM EDT Hospital Encounter [facility] Ultrasound [address] [place] [phone] CML (chronic myelocytic leukemia) (CMS/HCC); Hyperbilirubinemia; Hepatosplenomegaly Discharge Disposition: Home or Self Care Social History Tobacco Use Types Packs/Day Years [...] on file documented as of this encounter Medications at Time of Discharge Asciminib HCl 40 MG tablet Take 40 mg by mouth daily. 60 tablet 2 07/12/2024 10/08/2024 documented as of this encounter Plan of Treatment Upcoming Encounters Date Type Department Care Team (Late st Contact Info) Description 10/30/2024 8:00 AM EDT Clinical Support [facility] Hematology/BMT and Cellular Therapy Program [address] [address] 10/30/2024 8:30 AM EDT Office Visit [facility]ology[facility]BMT and Cellular Therapy Program [address] [address] Radha Morelos, SHOT POLISHER 800 [facility] [address] [place] [phone] 11/13/2024 1:00 PM EDT Office Visit [facility] [address] [place] [address] Verena Montes PA 3101 [facility] [address] [place] [address] 11/27/2024 1:30 PM EDT Clinical Support [facility] H[facility]ology/BMT and Cellular Therapy Program [address] [place] [address] 11/27/2024 2:00 PM EDT Office Visit [facility]ology[facility]BMT [facility] Cellular Therapy Program [address] [place] [address] Mk Pastrana MD 800 [facility] [address] [place] [phone] documented as of this encounter Procedures Procedure Name Priority Date/Time Associated Diagnosis Comments US ABDOMEN FOCUSED REGION Routine 08/28/2024 9:00 AM EDT CML (chronic myelocytic leukemia) (CMS/HCC) Hyperbilirubinemia Hepatosplenomegaly documented in this encounter Results * US [...] ( e 7 mm) - Surgical consult. https://pubs.rsna.org/doi/abs/10.1148/radiol.608485. CRITICAL RESULT: No. COMMUNICATION: Per this written [...] - Size - 4 mm Morphology: Pedunculated ufdi-ta-umr-wall or thin stalk Focal adjacent wall thickening >4mm: not present Polyp # 2 - Size - 4 mm Morphology: Pedunculated hsfn-ha-yzc-wall or thin stalk Focal adjacent wall thickening [...] - Size - 4 mm Morphology: Pedunculated ajjc-cq-coi-wall or thin stalk Focal adjacent wall thickening >4mm: not present Polyp # 2 - Size - 4 mm Morphology: Pedunculated imbl-jk-zor-wall or thin stalk Focal adjacent wall thickening [...] ( e 7 mm) - Surgical consult. https://pubs.rsna.org/doi/abs/10.1148/radiol.007163. CRITICAL RESULT: No. COMMUNICATION: Per this written [...] MD IMG US PROCEDURES Final Resul t documented in this encounter Visit Diagnoses Diagnosis CML (chronic myelocytic leukemia) (CMS/HCC) Chronic myeloid leukemia, without mention of having achieved remission Hyperbilirubinemia Disorders of bilirubin excretion Hepatosplenomegaly Other chronic nonalcoholic liver disease documented in this encounter Additional Health Concerns Assessment Noted Time A Body Mass Index follow-up plan has been documented for the patient 08/28/2024 5:28 PM EDT documented as of this encounter Care Teams Hydropulper Operator Relationship Specialty Start Date End Date Willi Frost MD [address] [place] [address] PCP - General 06/11/24 documented as of this encounter
--- OUTSIDE RECORDS SUMMARY | 2024-08-28 14:00 | XMS_ITS | Encounter Summary ---
Author Organization [facility] Address [address] [place] [address] Care Team Providers Care Yard Hand Name Role Phone Willi Frost MD Primary Care Provider [phone] Reason for Visit * Consultation (Routine) - Closed Specialty Diagnoses / Procedures Referred By Contac t Referred To Contact Dentistry Diagnoses CML (chronic myelocytic leukemia) (CMS/HCC) Mk Pastrana MD 800 [facility] [address] [address] Phone: tel: fax: [facility] Adult Dentistry [address] [address] Phone: tel: fax: Referral ID Status Reason Start Date Expiration Date V isits Requested Visits Authorized [id number] Closed Specialty Services Required 07/09/2024 01/08/2026 1 1 Encounter Details Date Type Department Care Team (Late st Contact Info) Description 08/28/2024 2:00 PM EDT Office Visit [facility] Adult Dentistry [address] [place] [address] Michelle Garza [address] [place] [phone] CML (chronic myelocytic leukemia) (CMS/HCC) Social History Tobacco Use Types Packs/Day Years [...] on file documented as of this encounter Miscellaneous Notes * Progress Notes - Michelle Garza - 08/28/2024 2:00 PM EDT Adult Dentistry [facility] Subjective: 54 y.o. female presents to clinic for evaluation and denture. Patient is currently on oral chemotherapy for her Chronic Myeloid Leukemia. She is being prepared for bone marrow transplant in few weeks Objective: Medical and dental hx reviewed. No changes Vitals: There were no vitals taken for this visit. PMH: Chronic Myeloid Leukemia- BCR?ABL positive Sacroiliitis Hypermetropia Neoplasm related pain Splenomegaly PSH: No significant PSH Medications: Asciminib 40 mg- chemotherapy daily. Patient is on oral chemotherapy since June 2023 Allergies: NKDA Assessment: ASA Class: ASA 4 - Patient with severe systemic disease that is a constant threat to life EOE: WNL IOE: GABINO: WNL HTE: Only teeth present # 23,24,25,26,27, RR#22,28. No palpable lia noted. Good ridge support for dentures Radiographic exam: Condyles bilaterally seated, normal bony trabeculation. Only teeth present #23,24,25,26,27. RR#22,28 Significant horizontal bone loss. Suggested full mouth extractions, patient wants to get FMX, and dentures after 3 months of healing. Plan: Today: comprehensive oral evaluation appointment Future visits: #22, #23, #24, #25, #26, #27, and #28 extraction Tx-Rendered today: Comprehensive oral evaluation completed. Panorex acquired and reviewed. Findings documented in objective and assessment sections above. Findings discussed with patient, radiographs reviewed. Procedure, risks, benefits, alternatives andcomplications discussed. Opportunity was given for patient to ask questions. All questions answeredto patients apparent satisfaction. Explained to the patient the extension of their dental diseases. Patient agreed to the proposed tx plan Patient elects Comp exam today and ext #22-28 next visit Reached out to care team to get clearance for dental extractions. Care team cleared her for extractions, she had her labs done today morning, her Platelet count was 47. Patient has been scheduled forexts on 09/11, care team was asked to check her labs on the day of ext, if platelets are below 50, platelet pack her and repeat the labs. Care team will prescribe antibiotic before her appointment as her ANC was below 1. Will coordinate with care team on the day of extraction NV: RTC for Ext #22-28 Cosigned by Yenni Moses DMD at 09/06/2024 11:45 AM EDT Associated attestation - Yenni Moses DMD - 09/06/2024 11:45 AM EDT I have reviewed the resident's dental note. I was physically present in the clinic and immediately available throughout the entire procedure to provide direct supervision. documented in this encounter Plan of Treatment Upcoming Encounters Date Type Department Care Team ([facility] st Contact Info) Description 10/30/2024 8:00 AM EDT Clinical Support [facility] Hematology/BMT and Cellular Therapy Program [address] [phone] 10/30/2024 8:30 AM EDT Office Visit [facility] Hematology/BMT and Cellular Therapy Program [address] [address] Radha Morelos, FARM ADVISOR 800 [facility] [address] [place] [phone] 11/13/2024 1:00 PM EDT Office Visit [facility] [address] [place] [address] Verena Montes PA 3101 [facility] [address] [place] [address] 11/27/2024 1:30 PM EDT Clinical Support [facility] Hematology/BMT and Cellular Therapy Program [address] [place] [address] 11/27/2024 2:00 PM EDT Office Visit [facility] Hematology/BMT and Cellular Therapy Program [address] [place] [place] [phone] Mk Pastrana MD 800 [facility] [address] [place] [phone] documented as of this encounter Procedures Procedure Name Priority Date/Time Associated Diagnosis Comments PANORAMIC RADIOGRAPHIC IMAGE Routine 08/28/2024 2:00 PM EDT CML (chronic myelocytic leukemia) (CMS/HCC) COMPREHENSIVE ORAL EVALUATION - NEW OR ESTABLISHED PATIENT Routine 08/28/2024 2:00 PM EDT CML (chronic myelocytic leukemia) (CMS/HCC) documented in this encounter Visit Diagnoses Diagnosis CML (chronic myelocytic leukemia) (CMS/HCC) Chronic myeloid leukemia, without mention of having achieved remission documented in this encounter Additional Health Concerns Assessment Noted Time A Body Mass Index follow-up plan has been documented for the patient 08/28/2024 5:28 PM EDT documented as of this encounter Care Teams Yard Hand Relationship Specialty Start Date End Date Willi Frost MD [address] [place] [address] [address] [place] [address] PCP - General 06/11/24 documented as of this encounter
--- OUTSIDE RECORDS SUMMARY | 2024-09-10 11:00 | XMS_ITS | Encounter Summary ---
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) (SO) Elena Ledezma, MAIL CARRIER TECHNICIAN 800 [facility] [address] [place] [phone] Phone: tel: fax: Referral ID Status Reason Start Date Expiration Date Visits Re quested Visits Authorized [id number] Closed 09/06/2024 03/08/2026 1 1 Encounter Details Date Type Department Care Team ([facility] st Contact Info) Description 09/10/2024 11:00 AM EDT Clinical Support [facility] Hematology/BMT and Cellular Therapy Program 750 [facility], [address] [place] [address] [place] [address] Tony Foreman, RN Social History Tobacco Use Types Packs/Day Years [...] Upcoming Encounters Date Type Department Care Team ([facility] st Contact Info) Description 10/30/2024 8:00 AM EDT Clinical Support [facility] Hematology/BMT and Cellular Therapy Program [address] [phone] 10/30/2024 8:30 AM EDT Office Visit [facility] Hematology/BMT and Cellular Therapy Program [address] [phone] Radha Morelos, MAIL CARRIER TECHNICIAN 800 [facility] [address] [place] [phone] 11/13/2024 1:00 PM EDT Office Visit [facility] [address] [place] [address] Verena Montes PA [address] [address] 11/27/2024 1:30 PM EDT Clinical Support [facility] Hematology/BMT and Cellular Therapy Program [address] [address] 11/27/2024 2:00 PM EDT Office Visit [facility] Hematology/BMT and Cellular Therapy Program [address] [phone] Mk Pastrana MD 800 [facility] [address] [place] [phone] documented as of this encounter Visit Diagnoses Not on filedocumented in this encounter Additional Health Concerns Assessment Noted Time A Body Mass Index follow-up plan has been documented for the patient 08/28/2024 5:28 PM EDT documented as of this encounter Care Teams Workers Compensation Claims Adjuster Relationship Specialty Start Date End Date Willi Frost MD [address] [place] [address] PCP - General 06/11/24 documented as of this encounter
--- OUTSIDE RECORDS SUMMARY | 2024-09-10 11:30 | XMS_ITS | Encounter Summary ---
Author Organization [facility] Address [address] [place] [address] Care Team Providers Care Electric Meter Installer Helper Name Role Phone Willi Frost MD Primary Care Provider + [phone] Reason for Referral * Genetic Testing (Routine) - Closed Specialty Diagnoses / Procedures Referred By Ryanac alexei Referred To Contact Lab Diagnoses CML (chronic myelocytic leukemia) (CMS/HCC) Procedures Quant Detection of BCR-ABL1 Major (p210) (SO) Elena Ledezma APRN [address] [address] Phone: tel: fax: Referral ID Status Reason Start Date Expiration Date Visits Re quested Visits Authorized [id number] Closed 09/06/2024 03/08/2026 1 1 Reason for Visit * Genetic Testing (Routine) - Closed Specialty Diagnoses / Procedures Referred By Contac t Referred To Contact Lab Diagnoses CML (chronic myelocytic leukemia) ([facility]/HCC) Procedures Quant Detection of BCR-ABL1 Major (p210) (SO) Elena Ledezma APRN [address] [address] Phone: tel: fax: Referral ID Status Reason Start Date Expiration Date Visits Re quested Visits Authorized [id number] Closed 09/06/2024 03/08/2026 1 1 Encounter Details Date Type Department Care Team (Late st Contact Info) Description 09/10/2024 11:30 AM EDT Office Visit [facility] Hematology/BMT and Cellular Therapy Program [address] [facility] [place] [phone] Bhavana Bella APRN 800 [facility] [address] [place] [phone] CML (chronic myelocytic leukemia) (CMS/HCC) (Primary [...] 1970 REFERRING PHYSICIAN: Elena Ledezma, MARCY 800 [facility] [address] [place] [phone] Encounter Date: 09/10/2024 Patient Care Team: Willi [...] - Peripheral blood flow cytometry performed in [place] for leukocytosis revealed 3% myeloblasts with maturing [...] lesions 06/15/23 - Bone marrow biopsy in [place] was consistent with chronic myeloid leukemia with [...] mg p.o. nightly. 10/2023 - Relocated to [facility] and established care with Fredrick Bateman in [place], [place], for hematology/oncology follow-up. By that point, the patient had been on nilotinib 300 mg p.o. twice daily for several weeks. CBC with differential was normal. BCR-ABL testing on peripheral bloodrevealed PCR positivity of 26.98% (b2a2 transcript), 17.66% (B3 A2 transcript, [id number]), and 0.0403% (ela2, A800-yqopy transcript). The recommendation was to continue current therapy. 11/22/23 - Transferred care to [facility] hematology/oncology. The recommendation was to continue therapy [...] accelerated chronic myeloidleukemia (CML), initially diagnosed in [place] on June 15, 2023, following evaluation for [...] the evening by mid-August. After relocating to [place] in October 2023, she established care locally [...] edema. I also discussed the risk of coequ-qmthes-qgcg disease (acute or chronic), which may require [...] Bella APRN HEMATOLOGY/BMT AND CELLULAR THERAPY PROGRAM [address] [facility] [phone] SERVICE PAGER [phone]/[employer] CHAT 30 minutes was spent on this [...] 150 mgQPM. She transferred her care to [place] in October 2023 and was found have [...] ABL1 International Scale (Percent) 45.9300 See Note 31.9173 Treatment/Therapy Plan: Asciminib 40 mg PO QD [...] Hematology/BMT and Cellular Therapy Program [address] [phone] 10/30/2024 8:30 AM EDT Office Visit [facility] Hematology/BMT and Cellular Therapy Program [address] [phone] Radha Morelos, CARDIOVASCULAR TECH 800 [facility] [address] [place] [phone] 11/13/2024 1:00 PM EDT Office Visit [facility] [address] [place] [phone] [place] [address] [place] [phone] 11/27/2024 1:30 PM EDT Clinical Support [facility] Hematology/BMT and Cellular Therapy Program [address] [phone] 11/27/2024 2:00 PM EDT Office Visit [facility] Hematology/BMT and Cellular Therapy Program [address] [phone] Mk Pastrana MD 800 [facility] [address] [place] [phone] documented as of this encounter Procedures Procedure [...] Major (p210) (SO) (09/10/2024 11:12 AM EDT) Quant BCR-ABL1, Major (p210), Source Whole Blood 09/17/2024 9:43 AM EDT [facility] Quant BCR-ABL1, Major (p210), Result Detected(A ) 09/17/2024 9:43 AM EDT [facility] Quant BCR-ABL1, Major (p210), IS Percent 20.4857 % 09/17/2024 9:43 AM EDT [facility] Quant BCR-ABL1, Major (p210), EER See Note 09/17/2024 9:43 AM EDT [facility] Blood Venous blood specimen / Unknown Venipuncture / Unknown 09/10/2024 11:12 AM EDT 09/10/2024 11:39 AM EDT Narrative [facility] - 09/17/2024 9:43 AM EDT This result [...] (IS; see Zhu MC, et al. Leukemia. 2009;23:7203-2130). METHODOLOGY: Total RNA was isolated and converted [...] using a validated reference sample (provided by [facility]; see Richelle TROTTER et al. Blood. 2010;116:111-117) that was calibrated to a standard set of diagnostic specimens defined during the original trial of tyrosine kinase inhibitor therapy in CML patients (Ashlee CHÁVEZ, et al. NE. 2003;349:6974-8257). ANALYTICAL SENSITIVITY: Limit of quantification: 0.0032 percent [...] developed and its performance characteristics determined by [facility]. It has not been cleared or approved by the U.S. Food and Drug Administration. This test was performed in a CLIA-certified laboratory and is intended for clinical purposes. Authorized individuals can access the [facility] Report with an [facility] account using the following link. Your local lab can assist you in obtaining the patient report if you don't have a Connect account. [email or web address] Performed By: [facility] [address] [place] [id number] Shoemaker Apprentice: Sunil Gomez MD, PhD CLIA Number: [id number] us Elena Ledezma CARDIOVASCULAR TECH LAB BLOOD ORDERABLES Final Res ult Performing Organization Address [facility] [[email or web address]] Co de Phone Number [facility] [address] [place] [phone] * Lipase (09/10/2024 11:12 AM EDT) Lipase, Plasma 28 19 - 63 U/L 09/10/2024 12:10 PM EDT [facility] Blood Venous blood specimen / Unknown Venipuncture / Unknown 09/10/2024 11:12 AM EDT 09/10/2024 11:35 AM EDT us Elena Ledezma CARDIOVASCULAR TECH LAB BLOOD ORDERABLES Final Res ult Performing Organization Address [facility]/ZIP Co de Phone Number [facility] [address] [place] [address] * Amylase (09/10/2024 11:12 AM EDT) Amylase 40 27 - 114 U/L 09/10/2024 12:10 PM EDT [facility] Blood Venous blood specimen / Unknown Venipuncture / Unknown 09/10/2024 11:12 AM EDT 09/10/2024 11:35 AM EDT us Elena Bass Meisuki CARDIOVASCULAR TECH LAB BLOOD ORDERABLES Final Res ult Performing Organization Address City/[facility]/ZIP Co de Phone Number [facility] [address] [place] [address] * Phosphorus, Plasma (09/10/2024 11:12 AM EDT) Phosphorus, Plasma 3.8 2.5 - 4.5 mg/dL 09/10/2024 12:10 PM EDT [facility] Blood Venous blood specimen / Unknown Venipuncture / Unknown 09/10/2024 11:12 AM EDT 09/10/2024 11:35 AM EDT us Elena L Yanetsuki CARDIOVASCULAR TECH LAB BLOOD ORDERABLES Final Res ult [facility] [address] [place] [address] * Magnesium, Plasma (09/10/2024 11:12 AM EDT) Magnesium, Plasma 2.1 1.9 - 2.4 mg/dL 09/10/2024 12:10 PM EDT [facility] Blood Venous blood specimen / Unknown Venipuncture / Unknown 09/10/2024 11:12 AM EDT 09/10/2024 11:35 AM EDT us Elena Ledezma CARDIOVASCULAR TECH LAB BLOOD ORDERABLES Final Res ult Performing Organization Address City/[facility]/[place] [address] * Lactate Dehydrogenase, Plasma (09/10/2024 11:12 AM EDT) LDH, Plasma 188 116 - 250 U/L 09/10/2024 12:10 PM EDT [facility] Comment:Hemolyzed, result ma y be falsely increased. Blood Venous blood specimen / Unknown Venipuncture / Unknown 09/10/2024 11:12 AM EDT 09/10/2024 11:35 AM EDT us Elena L Meikel CARDIOVASCULAR TECH LAB BLOOD ORDERABLES Final Res ult [facility] [address] [place] [address] * (ABNORMAL) Comprehensive Metabolic Panel, Plasma (09/10/2024 11:12 AM EDT) Glucose, Plasma 67(L) 74 - 99 mg/dL 09/10/2024 12:10 PM EDT [facility] BUN, Plasma 11 7 - 21 mg/dL 09/10/2024 12:10 PM EDT [facility] Creatinine, Plasma 0.60 0.60 - 1.10 mg/dL 09/10/2024 12:10 PM EDT [facility] BUN/Creatinine Ratio 18 09/10/2024 12:10 PM EDT [facility] Sodium, Plasma 140 136 - 145 mmol/L 09/10/2024 12:10 PM EDT [facility] Potassium, Plasma 4.5 3.6 - 4.9 mmol/L 09/10/2024 12:10 PM EDT [facility] Chloride, Plasma 106 97 - 107 mmol/L 09/10/2024 12:10 PM EDT [facility] CO2, Plasma 22 22 - 29 mmol/L 09/10/2024 12:10 PM EDT [facility] Anion Gap 12 6 - 16 mmol/L 09/10/2024 12:10 PM EDT [facility] Total Calcium, Plasma 9.1 8.9 - 10.2 mg/dL 09/10/2024 12:10 PM EDT [facility] Total Protein 6.6 6.3 - 7.9 g/dL 09/10/2024 12:10 PM EDT [facility] Albumin, Plasma 4.1 3.5 - 5.2 g/dL 09/10/2024 12:10 PM EDT [facility] AST, Plasma 16 10 - 35 U/L 09/10/2024 12:10 PM EDT [facility] Comment:Hemolyzed, result ma y be falsely increased. ALT, Plasma 11 10 - 35 U/L 09/10/2024 12:10 PM EDT [facility] Alkaline Phosphatase, Plasma 89 35 - 104 U/L 09/10/2024 12:10 PM EDT [facility] Total Bilirubin, Plasma 0.5 0.2 - 1.1 mg/dL 09/10/2024 12:10 PM EDT [facility] eGFRcr 108.2 mL/min/1.7 3m*2 09/10/2024 12:10 PM EDT [facility] Comment:Reported eGFRcr in m L/min/1.73m2 is based the CKD-EPI 2020 equation that does not use a race coefficient. Blood Venous blood specimen / Unknown Venipuncture / Unknown 09/10/2024 11:12 AM EDT 09/10/2024 11:35 AM EDT us Elena Ledezma CARDIOVASCULAR TECH LAB BLOOD ORDERABLES Final Res ult [facility] [address] [place] [address] * (ABNORMAL) CBC and Differential (09/10/2024 11:12 AM EDT) WBC Count 1.88(L) 3.70 - 10.30 10*3/uL LAB HEMATOLOGY METHOD 09/10/2024 11:34 AM EDT [facility] RBC Count 3.51(L) 3.90 - 5.20 10*6/uL LAB HEMATOLOGY METHOD 09/10/2024 11:34 AM EDT [facility] HGB 11.2 11.2 - 15.7 g/dL LAB HEMATOLOGY METHOD 09/10/2024 11:34 AM EDT [facility] HCT 33.1(L) 34.0 - 45.0 % LAB HEMATOLOGY METHOD 09/10/2024 11:34 AM EDT [facility] Platelet Count 37(L) 155 - 369 10*3/uL LAB HEMATOLOGY METHOD 09/10/2024 11:34 AM EDT [facility] MCV 94 79 - 98 fL LAB HEMATOLOGY METHOD 09/10/2024 11:34 AM EDT [facility] MCH 31.9 26.0 - 32.0 pg LAB HEMATOLOGY METHOD 09/10/2024 11:34 AM EDT [facility] MCHC 33.8 30.7 - 35.5 g/dL LAB HEMATOLOGY METHOD 09/10/2024 11:34 AM EDT [facility] RDW 17.2(H) 11.5 - 14.5 % LAB HEMATOLOGY METHOD 09/10/2024 11:34 AM EDT [facility] MPV 9.9 8.8 - 12.5 fL LAB HEMATOLOGY METHOD 09/10/2024 11:34 AM EDT [facility] nRBC 0.0 <=0.0 per 100 WBCs LAB HEMATOLOGY METHOD 09/10/2024 11:34 AM EDT [facility] Differential Type Automated LAB HEMATOLOGY METHOD 09/10/2024 11:34 AM EDT [facility] Neutrophils % 19 % LAB HEMATOLOGY METHOD 09/10/2024 11:34 AM EDT [facility] Lymphocytes % 75 % LAB HEMATOLOGY METHOD 09/10/2024 11:34 AM EDT [facility] Monocytes % 3 % LAB HEMATOLOGY METHOD 09/10/2024 11:34 AM EDT [facility] Eosinophils % 1 % LAB HEMATOLOGY METHOD 09/10/2024 11:34 AM EDT [facility] Basophils % 1 % LAB HEMATOLOGY METHOD 09/10/2024 11:34 AM EDT [facility] Immature Granulocytes % 1 % LAB HEMATOLOGY METHOD 09/10/2024 11:34 AM EDT [facility] Neutrophils Absolute 0.35(LL) 1.60 - 6.10 10*3/uL LAB HEMATOLOGY METHOD 09/10/2024 11:34 AM EDT [facility] Lymphocytes Absolute 1.44 1.20 - 3.90 10*3/uL LAB HEMATOLOGY METHOD 09/10/2024 11:34 AM EDT [facility] Monocytes Absolute 0.06(L) 0.30 - 0.90 10*3/uL LAB HEMATOLOGY METHOD 09/10/2024 11:34 AM EDT [facility] Eosinophils Absolute 0.01 0.00 - 0.50 10*3/uL LAB HEMATOLOGY METHOD 09/10/2024 11:34 AM EDT [facility] Basophils Absolute 0.01 0.00 - 0.10 10*3/uL LAB HEMATOLOGY METHOD 09/10/2024 11:34 AM EDT [facility] Immature Granulocytes Absolute 0.01 0.00 - 0.06 10*3/uL LAB HEMATOLOGY METHOD 09/10/2024 11:34 AM EDT [facility] Blood Venous blood specimen / Unknown Venipuncture / Unknown 09/10/2024 11:12 AM EDT 09/10/2024 11:28 AM EDT Narrative [facility] - 09/10/2024 11:34 AM EDT Therapeutic decision making should be based on absolute values, rather than percentages. us Elena Ledezma APRN LAB BLOOD ORDERABLES Final Res ult [facility] [address] [place] [address] documented in this encounter Visit Diagnoses Diagnosis CML (chronic myelocytic leukemia) (CMS/HCC)- Primary Chronic myeloid leukemia, without mention of having achieved remission documented in this encounter Additional Health Concerns Assessment Noted Time A Body Mass Index follow-up plan has been documented for the patient 08/28/2024 5:28 PM EDT documented as of this encounter Care Teams Electric Meter Installer Helper Relationship Specialty Start Date End Date Willi Frost MD [address] [place] [id number] PCP - General 06/11/24 documented as of this encounter
--- OUTSIDE RECORDS SUMMARY | 2024-09-10 13:34 | XMS_ITS | Encounter Summary ---
Author Organization [facility] Address [address] [place] [address] Care Team Providers Care Enamel Shader Name Role Phone Willi Frost MD Primary Care Provider [phone] Reason for Referral * Clinic-Administered Medication (Routine) - Pending Review Specialty Diagnoses / Procedures Referred By Akosua linda Referred To Contact Bhavana Bella APRN [address] [address] Phone: tel: fax: Referral ID Status Reason Start Date Expiration Date V isits Requested Visits Authorized [id number] Pending Review 09/10/2024 03/12/2026 1 1 Reason for Visit * Clinic-Administered Medication (Routine) - Pending Review Specialty Diagnoses / Procedures Referred By Akosua linda Referred To Contact Bhavana Bella APRN [address] [address] Phone: tel: fax: Referral ID Status Reason Start Date Expiration Date V isits Requested Visits Authorized [id number] Pending Review 09/10/2024 03/12/2026 1 1 Encounter Details Date Type Department Care Team (Latest Contact Info) Description 09/10/2024 1:34 PM EDT - 09/10/2024 11:59 PM EDT Hospital Encounter [facility] 2 [address] [place] [address] CML (chronic myelocytic leukemia) (CMS/HCC) (Primary Dx) Discharge Disposition: Home or Self Care Social [...] Sign Reading Time Taken Comments Blood Pressure 111/74 09/10/2024 3:26 PM EDT Pulse 69 09/10/2024 3:26 PM EDT Temperature 36.7 C (98 F) 09/10/2024 3:26 PM EDT Respiratory Rate 16 09/10/2024 3:26 PM EDT Oxygen Saturation 97% 09/10/2024 3:26 PM EDT Inhaled Oxygen Concentration - - Weight 61.3 kg (135 lb 2.3 oz) 09/10/2024 1:35 P M EDT Height 165.1 cm (5' 5 ) 09/10/2024 1:35 PM EDT Body Mass Index 22.49 09/10/2024 1:35 PM EDT documented in this encounter Medications at Time of Discharge cetirizine (ZyrTEC) 10 MG tablet Take 1 tablet by mouth daily. 7 tablet 09/10/2024 Asciminib HCl 40 MG tablet Take 40 mg by mouth daily. 60 tablet 2 07/12/2024 10/08/2024 documented as of this encounter Plan of Treatment Upcoming Encounters Date Type Department Care Team ([facility] st Contact Info) Description 10/30/2024 8:00 AM EDT Clinical Support [facility] CC Hematology/BMT and Cellular Therapy Program 750 [facility] [place] [phone] 10/30/2024 8:30 AM EDT Office Visit [facility] Hematology/BMT and Cellular Therapy Program [address] [facility] [place] [phone] Radha Morelos APRN 800 [facility] [address] [place] [phone] 11/13/2024 1:00 PM EDT Office Visit [facility] [address] [place] [address] Verena Montes PA [address] [facility] [address] [place] [address] 11/27/2024 1:30 PM EDT Clinical Support [facility] Hematology/BMT and Cellular Therapy Program [address] [place] [phone] 11/27/2024 2:00 PM EDT Office Visit [facility] Hematology/BMT and Cellular Therapy Program [address] [place] [phone] Mk Pastrana MD 800 [facility] [address] [place] [phone] documented as of this encounter Procedures Procedure Name Priority Date/Time Associated Diagnosis Comments PLATELET COUNT, BLOOD STAT 09/10/2024 3:41 PM EDT TRANSFUSE PLATELETS Routine 09/10/2024 2 :40 PM EDT CML (chronic myelocytic leukemia) (CMS/HCC) PREPARE PLATELETS Routine 09/10/2024 2:0 6 PM EDT CML (chronic myelocytic leukemia) (CMS/HCC) documented in this encounter Results * Transfuse platelets, Irradiated (09/10/2024 4:03 PM EDT) us Bhavana Bella APRN BLOOD TRANSFUSION ORDERABL ES Final Result * Transfuse platelets: 1 Units, Irradiated (09/10/2024 4:03 PM EDT) us Bhavana Bella APRN BLOOD TRANSFUSION ORDERABL ES Final Result * (ABNORMAL) Platelet Count, Blood (09/10/2024 3:41 PM EDT) Platelet Count 56(L) 155 - 369 10*3/uL LAB HEMATOLOGY METHOD 09/10/2024 3:45 PM EDT [facility] Blood Venous blood specimen / Unknown Venipuncture / Unknown 09/10/2024 3:41 PM EDT 09/10/2024 3:43 PM EDT us Bhavana Bella APRN LAB BLOOD ORDERABLES Final Result Performing Organization Address City/[facility] Co de Phone Number [facility] [address] [place] [address] * Prepare Leukocyte Reduced Platelets: 1 Units, Irradiated, Leukoreduced (09/10/2024 2:06 PM EDT) Product Code [id number] CH BLOO D BANK Dispense Status Transfused BLOOD BANK Blood Expiration Date [id number] BLOOD BANK Unit Number [id number] CH B LOOD BANK Product Blood Type 6200 BLOOD BANK Blood Type A+ BLOOD BANK Blood Venous blood specimen / Unknown hBavana Bella APRN BLOOD BANK PRODUCT ORDERAB LES Final Result Performing Organization Address [facility] Co de Phone Number BLOOD BANK [address] [place] [address] documented in this encounter Visit Diagnoses Diagnosis CML (chronic myelocytic leukemia) (CMS/HCC)- Primary Chronic myeloid leukemia, without mention of having achieved remission documented in this encounter Administered Medications Inactive Administered Medications - up to 3 most recent administrations Medication Order MAR Action Action Date Dose Rate Site filgrastim-sndz (ZARXIO) injection 300 mcg 300 mcg, Subcutaneous, Once, 1 dose, On Mon09/10/24 at 1445, Routine Given 09/10/2024 3:56 PM EDT 300 mcg Left Lower Abdomen documented in this encounter Additional Health Concerns Assessment Noted Time A Body Mass Index follow-up plan has been documented for the patient 08/28/2024 5:28 PM EDT documented as of this encounter Care Teams Enamel Shader Relationship Specialty Start Date End Date Willi Frost MD [address] [place] [address] PCP - General 06/11/24 documented as of this encounter
--- OUTSIDE RECORDS SUMMARY | 2024-09-11 15:00 | XMS_ITS | Encounter Summary ---
Author Organization Healthcare Address [address] [place] [address] Care Team Providers Care Audiometrist Name Role Phone Willi Frost MD Primary Care Provider [phone] Encounter Details Date Type Department Care Team (Late st Contact Info) Description 09/11/2024 3:00 PM EDT Office Visit [place] [facility] [address] [place] [phone] Michelle Garza [address] [place] [phone] Cancer (CMS/HCC) (Primary Dx); Extraction of tooth [...] - 09/11/2024 3:00 PM EDT Adult Dentistry [facility] Subjective: 54 y.o. female presents to clinic [...] Upcoming Encounters Date Type Department Care Team ([facility] st Contact Info) Description 10/30/2024 8:00 AM EDT Clinical Support [facility] Hematology/BMT and Cellular Therapy Program [address] [phone] 10/30/2024 8:30 AM EDT Office Visit [facility] Hematology/BMT and Cellular Therapy Program [address] [phone] Radha Morelos, FINANCE EXECUTIVE [address] [facility] [address] [place] [phone] 11/13/2024 1:00 PM EDT Office Visit [facility] [address] [place] [address] Verena Montes PA [address] [phone] 11/27/2024 1:30 PM EDT Clinical Support [facility] Hematology/BMT and Cellular Therapy Program [address] [phone] 11/27/2024 2:00 PM EDT Office Visit [facility] Hematology/BMT and Cellular Therapy Program [address] [phone] Mk Pastrana MD [address] [facility] [address] [place] [phone] documented as of this encounter Procedures [...] LAB HEMATOLOGY METHOD 09/11/2024 6:39 PM EDT [facility] RBC Count 3.47(L) 3.90 - 5.20 10*6/uL LAB HEMATOLOGY METHOD 09/11/2024 6:39 PM EDT [facility] HGB 11.2 11.2 - 15.7 g/dL LAB HEMATOLOGY METHOD 09/11/2024 6:39 PM EDT [facility] HCT 32.9(L) 34.0 - 45.0 % LAB HEMATOLOGY METHOD 09/11/2024 6:39 PM EDT [facility] Platelet Count 57(L) 155 - 369 10*3/uL LAB HEMATOLOGY METHOD 09/11/2024 6:39 PM EDT [facility] MCV 95 79 - 98 fL LAB HEMATOLOGY METHOD 09/11/2024 6:39 PM EDT [facility] MCH 32.3(H) 26.0 - 32.0 pg LAB HEMATOLOGY METHOD 09/11/2024 6:39 PM EDT [facility] MCHC 34.0 30.7 - 35.5 g/dL LAB HEMATOLOGY METHOD 09/11/2024 6:39 PM EDT [facility] RDW 17.1(H) 11.5 - 14.5 % LAB HEMATOLOGY METHOD 09/11/2024 6:39 PM EDT [facility] MPV 9.7 8.8 - 12.5 fL LAB HEMATOLOGY METHOD 09/11/2024 6:39 PM EDT [facility] nRBC 0.0 <=0.0 per 100 WBCs LAB HEMATOLOGY METHOD 09/11/2024 6:39 PM EDT [facility] Differential Type Automated LAB HEMATOLOGY METHOD 09/11/2024 6:39 PM EDT [facility] Neutrophils % 42 % LAB HEMATOLOGY METHOD 09/11/2024 6:39 PM EDT [facility] Lymphocytes % 47 % LAB HEMATOLOGY METHOD 09/11/2024 6:39 PM EDT [facility] Monocytes % 5 % LAB HEMATOLOGY METHOD 09/11/2024 6:39 PM EDT [facility] Eosinophils % 0 % LAB HEMATOLOGY METHOD 09/11/2024 6:39 PM EDT [facility] Basophils % 0 % LAB HEMATOLOGY METHOD 09/11/2024 6:39 PM EDT [facility] Immature Granulocytes % 6 % LAB HEMATOLOGY METHOD 09/11/2024 6:39 PM EDT [facility] Neutrophils Absolute 1.03(L) 1.60 - 6.10 10*3/uL LAB HEMATOLOGY METHOD 09/11/2024 6:39 PM EDT [facility] Lymphocytes Absolute 1.17(L) 1.20 - 3.90 10*3/uL LAB HEMATOLOGY METHOD 09/11/2024 6:39 PM EDT [facility] Monocytes Absolute 0.11(L) 0.30 - 0.90 10*3/uL LAB HEMATOLOGY METHOD 09/11/2024 6:39 PM EDT [facility] Eosinophils Absolute 0.01 0.00 - 0.50 10*3/uL LAB HEMATOLOGY METHOD 09/11/2024 6:39 PM EDT [facility] Basophils Absolute 0.01 0.00 - 0.10 10*3/uL LAB HEMATOLOGY METHOD 09/11/2024 6:39 PM EDT [facility] Immature Granulocytes Absolute 0.14(H) 0.00 - 0.06 10*3/uL LAB HEMATOLOGY METHOD 09/11/2024 6:39 PM EDT [facility] Blood Venous blood specimen / Unknown Venipuncture / Unknown 09/11/2024 3:05 PM EDT 09/11/2024 3:06 PM EDT Narrative [facility] - 09/11/2024 6:39 PM EDT Therapeutic decision making should be based on absolute values, rather than percentages. us Shameka Combs DMD LAB BLOOD ORDERABLES Final R esult [facility] [address] [place] [address] documented in this encounter Visit Diagnoses Diagnosis Cancer (CMS/HCC)- Primary Other malignant neoplasm of unspecified site Extraction of tooth needed documented in this encounter Additional Health Concerns Assessment Noted Time A Body Mass Index follow-up plan has been documented for the patient 09/11/2024 6:12 PM EDT documented as of this encounter Care Teams Audiometrist Relationship Specialty Start Date End Date Willi Frost MD [address] [place] [address] [address] [place] [address] PCP - General 06/11/24 documented as of this encounter
--- OUTSIDE RECORDS SUMMARY | 2024-09-25 10:00 | XMS_ITS | Encounter Summary ---
Author Organization [facility] Address [address] [place] [address] Care Team Providers Care Kindergarten Teacher Assistant Name Role Phone Willi Frost MD Primary Care Provider + [phone] Reason for Visit * Reason Comments Nurse Visit Labs * Genetic Testing (Routine) - Closed Specialty Diagnoses / Procedures Referred By Contac t Referred To Contact Lab Diagnoses CML (chronic myelocytic leukemia) (CMS/HCC) Procedures STR, Patient Specimen Mk Pastrana MD 800 [facility] [address] [place] [phone] Phone: tel: fax: Referral ID Status Reason Start Date Expiration Date Visits Re quested Visits Authorized [id number] Closed 09/11/2024 03/13/2026 1 1 Encounter Details Date Type Department Care Team (Latest Contact Info) Description 09/25/2024 10:00 AM EDT Clinical Support [facility] Hematology/BMT and Cellular Therapy Program [address] [place] [phone] CML (chronic myelocytic leukemia) (CMS/HCC) Social History [...] Upcoming Encounters Date Type Department Care Team ([facility] st Contact Info) Description 10/30/2024 8:00 AM EDT Clinical Support [facility] Hematology/BMT and Cellular Therapy Program [address] [phone] 10/30/2024 8:30 AM EDT Office Visit [facility] Hematology/BMT and Cellular Therapy Program [address] [phone] Radha Morelos, ENGINEERING LECTURER 800 [facility] [address] [place] [phone] 11/13/2024 1:00 PM EDT Office Visit [place] [phone] [place] [phone] Verena Montes PA [address] [phone] 11/27/2024 1:30 PM EDT Clinical Support [facility] Hematology/BMT and Cellular Therapy Program [address] [phone] 11/27/2024 2:00 PM EDT Office Visit [facility] Hematology/BMT and Cellular Therapy Program [address] [phone] Mk Pastrana MD 800 [facility] [address] [place] [phone] Pending Results Name Type Priority Associated Diagnoses Date /Time STR, Patient Specimen Lab Routine CML (chronic myelocytic leukemia) ([facility]/HCC) 09/25/2024 10:23 AM EDT documented as of [...] Collection 24 HRS 09/25/2024 11:25 AM EDT [facility] Urine, Volume 200 mL 09/25/2024 11:25 AM EDT [facility] Creatinine, Urine 201 mg/dL 09/25/2024 11:25 AM EDT [facility] Creatinine, Plasma 0.65 0.60 - 1.10 mg/dL 09/25/2024 11:25 AM EDT [facility] Creatinine Clearance 42.95(L) 66.00 - 108.00 mL/min 09/25/2024 11:25 AM EDT [facility] Creatinine per day, Urine 402(L) 500 - 1,600 mg/d 09/25/2024 11:25 AM EDT [facility] Urine Urine specimen obtained by clean catch procedure / Unknown Non-blood Collection / Unknown 09/25/2024 10:23 AM EDT 09/25/2024 10:24 AM EDT us Mk Pastrana MD LAB URINE ORDERABLES Final Re sult [facility] [address] [place] [address] * Creatinine, Plasma (09/25/2024 10:23 AM EDT) Creatinine, Plasma 0.65 0.60 - 1.10 mg/dL 09/25/2024 11:17 AM EDT [facility] eGFRcr 106.1 mL/min/1.7 3m*2 09/25/2024 11:17 AM EDT [facility] Comment:Reported eGFRcr in m L/min/1.73m2 is based the CKD-EPI 2020 equation that does not use a race coefficient. Blood Venous blood specimen / Unknown Venipuncture / Unknown 09/25/2024 10:23 AM EDT 09/25/2024 10:34 AM EDT Mk Pastrana MD LAB BLOOD ORDERABLES Final Re sult Performing Organization Address City/[facility]/ZIP Co de Phone Number [facility] [address] [place] [address] * APTT (09/25/2024 10:23 AM EDT) aPTT 28 25 - 35 sec LAB COAGULATION METHOD 09/25/2024 11:00 AM EDT [facility] Blood Venous blood specimen / Unknown Venipuncture / Unknown 09/25/2024 10:23 AM EDT 09/25/2024 10:34 AM EDT Mk Pastrana MD LAB BLOOD ORDERABLES Final Re sult Performing Organization Address [facility] [place] [address] * Prothrombin Time/INR (09/25/2024 10:23 AM EDT) Prothrombin Time 12.7 12.0 - 14.3 sec LAB COAGULATION METHOD 09/25/2024 11:00 AM EDT [facility] INR 0.9 0.9 - 1.1 LAB COAGULATION METHOD 09/25/2024 11:00 AM EDT [facility] Blood Venous blood specimen / Unknown Venipuncture / Unknown 09/25/2024 10:23 AM EDT 09/25/2024 10:34 AM EDT Narrative [facility] - 09/25/2024 11:00 AM EDT OPTIMAL INR RANGES FOR PATIENT ON ORAL ANTICOAGULANT THERAPY Prevention of venous thromboembolism INR 2.0 to 3.0 In patients with heart disease: Atrial fibrillation INR 2.0 to 3.0 Valvular heart disease INR 2.0 to 3.0 Tissue heart valves INR 2.0 to 3.0 Mechanical prosthetic valves INR 2.5 to 3.5 Prevention of recurrent [place] INR 2.5 to 3.5 us Mk Pastrana MD LAB BLOOD ORDERABLES Final Re sult Performing Organization Address City/[facility]/ZIP Co de Phone Number [facility] [address] [place] [address] * Toxoplasma gondii antibody, IgG (09/25/2024 10:23 AM EDT) TOXOPLASMA IGG AB 3.7 <=8.8 IU/mL 09/27/2024 1:[address] [facility] Blood Venous blood specimen / Unknown Venipuncture / Unknown 09/25/2024 10:23 AM EDT 09/25/2024 10:34 AM EDT Narrative [facility] - 09/27/2024 [...] the amount of antibody present. Performed By: [employer] [address] [place] [address] Analysis Analyst: Sunil Gomez MD, PhD CLIA Number: [id number] Mk Pastrana MD LAB BLOOD ORDERABLES Final Re sult [facility] [employer] ([place]) [address] [place] [address] * Altaf Fontanez Virus (EBV) Quantitative PCR (09/25/2024 10:23 AM EDT) Pathologist [facility] Altaf Fontanez Virus, Blood, Quant DNA Interpretation Not Detected Not Detected 10/01/2024 6:[address] [facility] Blood Venous blood specimen / Unknown Venipuncture / Unknown 09/25/2024 10:23 AM EDT 09/25/2024 10:34 AM EDT Narrative [facility] - 10/01/2024 6:35 AM EDT [...] developed and it's performance characteristics determined by [facility] as appropriate for clinical purposes. [...] developed and it's performance characteristics determined by [facility] as appropriate for clinical purposes. This assay has not been cleared or approved by the FDA, but is performed in a CLIA regulated laboratory that is qualified to perform high-complexity testing. Mk Pastrana MD LAB BLOOD ORDERABLES Final Re sult [facility] [address] [place] [address] * (ABNORMAL) Ferritin (09/25/2024 10:23 AM EDT) Ferritin, Serum 294(H) 13 - 150 ng/mL 09/25/2024 11:17 AM EDT [facility] Blood Venous blood specimen / Unknown Venipuncture / Unknown 09/25/2024 10:23 AM EDT 09/25/2024 10:35 AM EDT Mk Pastrana MD LAB BLOOD ORDERABLES Final Re sult Performing Organization Address City/[facility]/ZIP Co de Phone Number [facility] [address] [place] [address] * LDH (09/25/2024 10:23 AM EDT) LDH, Plasma 192 116 - 250 U/L 09/25/2024 11:[address] [facility] Blood Venous blood specimen / Unknown Venipuncture / Unknown 09/25/2024 10:23 AM EDT 09/25/2024 10:34 AM EDT Mk Pastrana MD LAB BLOOD ORDERABLES Final Re sult Performing Organization Address [facility] [place] [address] * Thyroid Stimulating Hormone, Plasma (09/25/2024 10:23 AM EDT) Thyroid Stimulating Hormone, Plasma 1.01 0.40 - 4.20 uIU/mL 09/25/2024 11:[address] [facility] Blood Venous blood specimen / Unknown Venipuncture / Unknown 09/25/2024 10:23 AM EDT 09/25/2024 10:34 AM EDT Narrative [facility] - 09/25/2024 11:17 AM EDT Trimester Specific Ranges TSH ( IU/mL) 1st Trimester 0.1 - 3.0 2nd Trimester 0.19 - 4.06 3rd Trimester 0.3 - 3.7 Mk Pastrana MD LAB BLOOD ORDERABLES Final Re sult Performing Organization Address City/[facility]/[place] [address] * ABO/Rh Type (09/25/2024 10:23 AM EDT) ABO/Rh AB Positive 09/25/2024 10:12 AM EDT [facility] Blood Venous blood specimen / Unknown Venipuncture / Unknown 09/25/2024 10:23 AM EDT 09/25/2024 10:39 AM EDT us Mk Pastrana MD LAB BLOOD BANK TEST ORDERABLE S Final Result BLOOD BANK [address] [place] [address], [place] * CMP (09/25/2024 10:23 AM EDT) Glucose, Plasma 85 74 - 99 mg/dL 09/25/2024 11:17 AM EDT [facility] BUN, Plasma 12 7 - 21 mg/dL 09/25/2024 11:17 AM EDT [facility] Creatinine, Plasma 0.65 0.60 - 1.10 mg/dL 09/25/2024 11:17 AM EDT [facility] BUN/Creatinine Ratio 18 09/25/2024 11:17 AM EDT [facility] Sodium, Plasma 140 136 - 145 mmol/L 09/25/2024 11:17 AM EDT [facility] Potassium, Plasma 4.3 3.6 - 4.9 mmol/L 09/25/2024 11:17 AM EDT [facility] Chloride, Plasma 106 97 - 107 mmol/L 09/25/2024 11:17 AM EDT [facility] CO2, Plasma 23 22 - 29 mmol/L 09/25/2024 11:17 AM EDT [facility] Anion Gap 11 6 - 16 mmol/L 09/25/2024 11:17 AM EDT [facility] Total Calcium, Plasma 9.7 8.9 - 10.2 mg/dL 09/25/2024 11:17 AM EDT [facility] Total Protein 7.7 6.3 - 7.9 g/dL 09/25/2024 11:17 AM EDT [facility] Albumin, Plasma 4.8 3.5 - 5.2 g/dL 09/25/2024 11:17 AM EDT [facility] AST, Plasma 17 10 - 35 U/L 09/25/2024 11:17 AM EDT [facility] ALT, Plasma 12 10 - 35 U/L 09/25/2024 11:17 AM EDT [facility] Alkaline Phosphatase, Plasma 100 35 - 104 U/L 09/25/2024 11:17 AM EDT [facility] Total Bilirubin, Plasma 0.8 0.2 - 1.1 mg/dL 09/25/2024 11:17 AM EDT [facility] eGFRcr 106.1 mL/min/1.7 3m*2 09/25/2024 11:17 AM EDT [facility] Comment:Reported eGFRcr in m L/min/1.73m2 is based the CKD-EPI 2020 equation that does not use a race coefficient. Blood Venous blood specimen / Unknown Venipuncture / Unknown 09/25/2024 10:23 AM EDT 09/25/2024 10:34 AM EDT us Mk Pastrana MD LAB BLOOD ORDERABLES Final Re sult [facility] [address] [place] [address] * (ABNORMAL) CBC and Differential (09/25/2024 10:23 AM EDT) WBC Count 1.98(L) 3.70 - 10.30 10*3/uL LAB HEMATOLOGY METHOD 09/25/2024 11:15 AM EDT [facility] RBC Count 3.68(L) 3.90 - 5.20 10*6/uL LAB HEMATOLOGY METHOD 09/25/2024 11:15 AM EDT [facility] HGB 12.1 11.2 - 15.7 g/dL LAB HEMATOLOGY METHOD 09/25/2024 11:15 AM EDT [facility] HCT 35.4 34.0 - 45.0 % LAB HEMATOLOGY METHOD 09/25/2024 11:15 AM EDT [facility] Platelet Count 61(L) 155 - 369 10*3/uL LAB HEMATOLOGY METHOD 09/25/2024 11:15 AM EDT [facility] MCV 96 79 - 98 fL LAB HEMATOLOGY METHOD 09/25/2024 11:15 AM EDT [facility] MCH 32.9(H) 26.0 - 32.0 pg LAB HEMATOLOGY METHOD 09/25/2024 11:15 AM EDT [facility] MCHC 34.2 30.7 - 35.5 g/dL LAB HEMATOLOGY METHOD 09/25/2024 11:15 AM EDT [facility] RDW 17.5(H) 11.5 - 14.5 % LAB HEMATOLOGY METHOD 09/25/2024 11:15 AM EDT [facility] MPV 11.0 8.8 - 12.5 fL LAB HEMATOLOGY METHOD 09/25/2024 11:15 AM EDT [facility] nRBC 0.0 <=0.0 per 100 WBCs LAB HEMATOLOGY METHOD 09/25/2024 11:15 AM EDT [facility] Differential Type Automated LAB HEMATOLOGY METHOD 09/25/2024 11:15 AM EDT [facility] Neutrophils % 21 % LAB HEMATOLOGY METHOD 09/25/2024 11:15 AM EDT [facility] Lymphocytes % 73 % LAB HEMATOLOGY METHOD 09/25/2024 11:15 AM EDT [facility] Monocytes % 4 % LAB HEMATOLOGY METHOD 09/25/2024 11:15 AM EDT [facility] Eosinophils % 1 % LAB HEMATOLOGY METHOD 09/25/2024 11:15 AM EDT [facility] Basophils % 1 % LAB HEMATOLOGY METHOD 09/25/2024 11:15 AM EDT [facility] Immature Granulocytes % 0 % LAB HEMATOLOGY METHOD 09/25/2024 11:15 AM EDT [facility] Neutrophils Absolute 0.42(LL) 1.60 - 6.10 10*3/uL LAB HEMATOLOGY METHOD 09/25/2024 11:15 AM EDT [facility] Lymphocytes Absolute 1.46 1.20 - 3.90 10*3/uL LAB HEMATOLOGY METHOD 09/25/2024 11:15 AM EDT [facility] Monocytes Absolute 0.07(L) 0.30 - 0.90 10*3/uL LAB HEMATOLOGY METHOD 09/25/2024 11:15 AM EDT [facility] Eosinophils Absolute 0.02 0.00 - 0.50 10*3/uL LAB HEMATOLOGY METHOD 09/25/2024 11:15 AM EDT [facility] Basophils Absolute 0.01 0.00 - 0.10 10*3/uL LAB HEMATOLOGY METHOD 09/25/2024 11:15 AM EDT [facility] Immature Granulocytes Absolute 0.00 0.00 - 0.06 10*3/uL LAB HEMATOLOGY METHOD 09/25/2024 11:15 AM EDT [facility] Blood Venous blood specimen / Unknown Venipuncture / Unknown 09/25/2024 10:23 AM EDT 09/25/2024 10:34 AM EDT Narrative [facility] - 09/25/2024 11:15 AM EDT Therapeutic decision making should be based on absolute values, rather than percentages. us Mk Pastrana MD LAB BLOOD ORDERABLES Final Re sult [facility] [address] [place] [address] documented in this encounter Visit Diagnoses Diagnosis CML (chronic myelocytic leukemia) (CMS/HCC) Chronic myeloid leukemia, without mention of having achieved remission documented in this encounter Additional Health Concerns Assessment Noted Time A Body Mass Index follow-up plan has been documented for the patient 09/11/2024 6:12 PM EDT documented as of this encounter Care Teams Kindergarten Teacher Assistant Relationship Specialty Start Date End Date Willi Frost MD [address] [place] [address] [address] [place] [address] PCP - General 06/11/24 documented as of this encounter
--- OUTSIDE RECORDS SUMMARY | 2024-09-25 11:00 | XMS_ITS | Encounter Summary ---
Author Organization [facility] Address [address] [place] [address] Care Team Providers Care Puller Through Name Role Phone Willi Frost MD Primary Care Provider Reason for Visit * Reason Comments Chronic Myelogenous Leukemia Encounter Details Date Type Department Care Team ([facility] st Contact Info) Description 09/25/2024 11:00 AM EDT Office Visit [facility] Hematology/BMT and Cellular Therapy Program [address] [phone] Elena Ledezma, GARMENT PRESSER 800 [facility] [address] [place] [phone] CML (chronic myelocytic leukemia) (CMS/HCC) Social History Tobacco Use Types Packs/Day Years Used Date Smoking Tobacco: Former Cigarettes Smokeless Tobacco: Never Tobacco Cessation:Counseling Given: Not Answered PHQ-2 Answer Date Recorded [...] Sign Reading Time Taken Comments Blood Pressure 115/78 09/25/2024 10:24 AM EDT Pulse 73 09/25/2024 10:24 AM EDT Temperature 36.4 C (97.5 F) 09/25/2024 10:24 AM EDT Respiratory Rate 16 09/25/2024 10:2 4 AM EDT Oxygen Saturation 98% 09/25/2024 10: 24 AM EDT Inhaled Oxygen Concentration - - Weight 57.9 kg (127 lb 10.3 oz) 025 10:24 AM EDT Height 165.1 cm (5' 5 ) 09/25/2024 10:2 4 AM EDT Body Mass Index 21.24 09/25/2024 10:24 AM EDT documented in this encounter Miscellaneous Notes * Progress Notes - Elena Ledezma, GARMENT PRESSER - 09/25/2024 11:00 AM EDT Patient Information Patient Name: Amita Ortiz Date of : 1970 REFERRING PHYSICIAN: No referring provider defined for this encounter. Encounter Date: 10/03/2024 Patient Care Team: Willi Frost MD as PCP - General Chief Complaint Patient presents with ??? Chronic Myelogenous Leukemia Hematologic History Cancer Staging No matching staging information was found for the patient. Amita Ortiz is a 54 y.o. who presents today for follow-up for the treatment of CML. Current Treatment Regimen: Asciminib 40 mg/day History of Present Illness: 06/09/23 - Peripheral blood flow cytometry performed in [place] for leukocytosis revealed 3% myeloblasts with maturing [...] lesions 06/15/23 - Bone marrow biopsy in [place] was consistent with chronic myeloid leukemia with [...] mg p.o. nightly. 10/2023 - Relocated to [facility] and established care with Fredrick Bateman in [place], [place], for hematology/oncology follow-up. By that point, the patient had been on nilotinib 300 mg p.o. twice daily for several weeks. CBC with differential was normal. BCR-ABL testing on peripheral bloodrevealed PCR positivity of 26.98% (b2a2 transcript), 17.66% (B3 A2 transcript, [id number]), and 0.0403% (ela2, [id number] transcript). The recommendation was to continue current therapy. 11/22/23 - Transferred care to [facility] hematology/oncology. The recommendation was to continue [...] Past Medical, Surgical, Family and Social History Past Medical History: Diagnosis Date ??? Leukemia (CMS/HCC) 06/24/23 Past Surgical History: Procedure Laterality Date ??? PROSTHODONTIC PROCEDURE 2020 Mom - ovarian cancer (in 50s) Grandfather - brain (in 70s) Social History Tobacco Use ??? Smoking status: Former Types: Cigarettes ??? Smokeless tobacco: Never Vaping Use ??? Vaping status: Every Day ??? Substances: THC Allergies and Adverse Drug Reactions Patient has no known allergies. Medications Current Outpatient Medications: ??? Asciminib HCl 40 MG tablet, Take 40 mg by mouth daily. (Patient not taking: Reported on 10/03/2024), Disp: 60 tablet, Rfl: 2 ??? cetirizine (ZyrTEC) 10 MG tablet, Take 1 tablet by mouth daily. (Patient not taking: Reported on 10/03/2024), Disp: 7 tablet, Rfl: 0 No current facility-administered medications for this visit. Subjective Interval History: She is overall feeling well. She is not currently taking asciminib. Denies fever or infection, shortness of breath, n/v/d. She has a bump in her right armpit that she would like to have evaluated. Review of Systems: 14- point ROS is reviewed and negative except in HPI. Objective Performance Status ECOG 1 KPS 90 Visit Vitals BP 115/78 (BP Location: Left arm, Patient Position: Sitting, BP Cuff Size: Adult) Pulse 73 Temp 36.4 ??C (97.5 ??F) (Temporal) Resp 16 BSA: Estimated body surface area is 1.63 meters squared as calculated from the following: Height as of this encounter: 1.651 m (5' 5 ). Weight as of this encounter: 57.9 kg (127 lb 10.3 oz). EXAM Physical Examination: General: appears stated age, no acute distress Skin: No rashes. +small nodule right armpit, resembles ingrown hair Head: normocephalic, atraumatic. Eyes: EOMI. Conjunctivae are pink and moist, non-erythematous. Sclera anicteric, noninjected. Lymph Nodes: No lymphadenopathy. Pulmonary: Breathing is non-labored. No cough. Lung sounds are CTA throughout bilaterally, no wheezes, rhonchi or crackles. Cardiovascular: regular heart rate and rhythm. No murmurs/rubs. Abdomen: Soft/non-tender/non-distended. Normal bowel sounds present throughout. Extremities: No peripheral edema. No calf tenderness. Musculoskeletal: Normal range of motion. No joint swelling or erythema. Neurological: Alert and oriented x 3. Responds to verbal commands. Psychiatric: Appropriate mood and behavior. Good eye contact. Investigations LABORATORIES AND STUDIES: reviewed by me personally Lab Results Component Value Date WBC 1.93 (L) 10/03/2024 RBC 3.42 (L) 10/03/2024 HGB 11.2 10/03/2024 HCT 34.0 10/03/2024 MCV 99 (H) 10/03/2024 MCHC 32.9 10/03/2024 RDW 17.4 (H) 10/03/2024 PLT 94 (L) 10/03/2024 MPV 10.3 10/03/2024 Lab Results Component Value Date BUN 12 09/25/2024 CL 106 09/25/2024 NA 140 09/25/2024 K 4.3 09/25/2024 TP 7.7 09/25/2024 AST 17 09/25/2024 ALT 12 09/25/2024 I visualized the recent imaging and discussed [...] accelerated chronic myeloidleukemia (CML), initially diagnosed in [place] on June 15, 2023, following evaluation for [...] the evening by mid-August. After relocating to [place] in October 2023, she established care locally [...] Her BCR-ABL1 PCR on 08/20/2024 was 31.595%. 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 Allogenic transplant discussion: Dr. Pastrana previously discussed [...] edema. I also discussed the risk of oildo-mwuzye-zthp disease (acute or chronic), which may require [...] neutropenia related to chemotherapy Monitor CBC weekly Give 1 unit PRBCs for hgb <7 and 1 unit plt for plt <10 History of HCV. PCR is negative. Tobacco [...] prior to procedure. Platelet transfusion today. RTC 10/03/24 for bone marrow biopsy. Continue transplant workups Elena Ledezma APRN documented in this encounter Plan of Treatment Upcoming Encounters Date Type Department Care Team ([facility] st Contact Info) Description 10/30/2024 8:00 AM EDT Clinical Support [facility] Hematology/BMT and Cellular Therapy Program [address] [phone] 10/30/2024 8:30 AM EDT Office Visit [facility] Hematology/BMT and Cellular Therapy Program [address] [phone] Radha Morelos APRN 800 [facility] [address] [phone] 11/13/2024 1:00 PM EDT Office Visit [address] [phone] Verena Montes PA [address] [place] [phone] 11/27/2024 1:30 PM EDT Clinical Support [facility]ology/BMT and Cellular Therapy Program [address] [phone] 11/27/2024 2:00 PM EDT Office Visit [facility]BMT and Cellular Therapy Program [address] [phone] Mk Pastrana MD 800 [facility] [address] [place] [phone] documented as of this encounter Procedures Procedure Name Priority Date/Time Associated Diagnosis Comments ECG ADULT Routine 09/25/2024 10:38 AM EDT CML (chronic myelocytic leukemia) (CMS/HCC) documented in this encounter Results * ECG Adult (09/25/2024 10:38 AM EDT) EKG DIAGNOSIS CLASS Borderline Abnormal MUSE ECG Ventricular Rate 72 BPM MUSE ECG Atrial Rate 72 BPM MUSE ECG NH Interval 122 ms MUSE ECG QRSD Interval 64 ms MUSE ECG QT Interval 406 ms MUSE ECG QTC Interval 444 ms MUSE ECG P Ely 71 degrees MUSE ECG R Ely 54 degrees MUSE ECG T Wave Ely 87 degrees MUSE ECG Diagnosis Normal sinus rhythm MUSE ECG Diagnosis Low voltage QRS MUSE ECG Diagnosis Borderline ECG MUSE ECG Diagnosis MUSE ECG Diagnosis Confirmed by Arsalan Ko ([id number]) on 09/25/2024 11:05:04 AM MUSE ECG 09/25/2024 10:3 8 AM EDT 09/25/2024 11:05 AM EDT us Mk Pastrana MD ECG ORDERABLES Final Result MUSE ECG documented in this encounter Visit Diagnoses Diagnosis CML (chronic myelocytic leukemia) (CMS/HCC) Chronic myeloid leukemia, without mention of having achieved remission documented in this encounter Additional Health Concerns Assessment Noted Time A Body Mass Index follow-up plan has been documented for the patient 09/11/2024 6:12 PM EDT documented as of this encounter Care Teams Puller Through Relationship Specialty Start Date End Date Willi Frost MD [address] [place] [address] [address] [place] [address] PCP - General 06/11/24 documented as of this encounter
--- OUTSIDE RECORDS SUMMARY | 2024-09-25 13:00 | XMS_ITS | Encounter Summary ---
Author Organization [facility] Address [address] [place] [address] Care Team Providers Care Feltmaker And Weigher Name Role Phone Willi Frost MD Primary Care Provider [phone] Reason for Visit * Reason Comments Social Work * Consultation (Routine) - Closed Specialty Diagnoses / Procedures Referred By Contac t Referred To Contact Diagnoses CML (chronic myelocytic leukemia) (CMS/HCC) Mk Pastrana MD 800 [facility] [address] [place] [phone] Phone: tel: fax: Referral ID Status Reason Start Date Expiration Date V isits Requested Visits Authorized [id number] Closed Specialty Services Required 09/11/2024 03/13/2026 1 1 Encounter Details Date Type Department Care Team ([facility] st Contact Info) Description 09/25/2024 1:00 PM EDT Clinical Support [facility] Hematology/BMT and Cellular Therapy Program 750 [facility] [place] [phone] Jocelin Ahuja RN [facility] GAMBIER AMB SERV ADMIN Social History Tobacco Use Types Packs/Day Years [...] Upcoming Encounters Date Type Department Care Team ([facility] st Contact Info) Description 10/30/2024 8:00 AM EDT Clinical Support [facility] Hematology/BMT and Cellular Therapy Program [address] [phone] 10/30/2024 8:30 AM EDT Office Visit [facility] Hematology/BMT and Cellular Therapy Program [address] [phone] Radha Morelos, CYLINDER BLOCK HOLE RELINER 800 [facility] [address] [place] [phone] 11/13/2024 1:00 PM EDT Office Visit [facility] [address] [place] [address] Verena Montes PA [address] [phone] 11/27/2024 1:30 PM EDT Clinical Support [facility] Hematology/BMT and Cellular Therapy Program [address] [place] [phone] 11/27/2024 2:00 PM EDT Office Visit [facility] Hematology/BMT and Cellular Therapy Program [address] [phone] Mk Pastrana MD 800 [facility] [address] [place] [phone] documented as of this encounter Visit Diagnoses Not on filedocumented in this encounter Additional Health Concerns Assessment Noted Time A Body Mass Index follow-up plan has been documented for the patient 09/11/2024 6:12 PM EDT documented as of this encounter Care Teams Feltmaker And Weigher Relationship Specialty Start Date End Date Willi Frost MD [address] [facility] [address] [place] [address] PCP - General 06/11/24 documented as of this encounter
--- OUTSIDE RECORDS SUMMARY | 2024-09-25 13:24 | XMS_ITS | Encounter Summary ---
Author Organization [facility] Address [address] [place] [address] Care Team Providers Care Index Editor Name Role Phone Willi Frost MD Primary Care Provider Encounter Details Date Type Department Care Team (Latest Contact Info) Description 09/25/2024 1:24 PM EDT - 09/25/2024 1:59 PM EDT Hospital Encounter [place] [facility] [address], 1st [place] [phone] Discharge Disposition: Home or Self Care Social [...] Hematology/BMT and Cellular Therapy Program [address], [address] [place] [phone] 10/30/2024 8:30 AM EDT Office Visit [facility] Hematology/BMT and Cellular Therapy Program [address] [phone] Radha Morelos, MINGLE OPERATOR 800 [facility] [address] [place] [phone] 11/13/2024 1:00 PM EDT Office Visit [facility] [address] [place] [phone] Verena Montes PA [address] [phone] 11/27/2024 1:30 PM EDT Clinical Support [facility] Hematology/BMT and Cellular Therapy Program [address] [phone] 11/27/2024 2:00 PM EDT Office Visit [facility] Hematology/BMT and Cellular Therapy Program [address] [phone] Mk Pastrana MD 800 [facility] [address] [place] [phone] documented as of this encounter Procedures Procedure Name Priority Date/Time Associated Diagnosis Comments XR CHEST 2 VIEWS Routine 09/25/2024 1:31 PM EDT CML (chronic myelocytic leukemia) (CMS/HCC) documented in this encounter Results * XR Chest 2 Views (09/25/2024 1:31 PM EDT) Anatomical Region Laterality Modality Chest Digital Radiogra phy Impressions 09/25/2024 3:16 PM EDT No acute cardiopulmonary findings. CRITICAL RESULT: No. COMMUNICATION: Per this written report. By electronically signing this report, I, the attending physician, attest that I have personally reviewed the images/data for the above examination(s) and agree with the final edited report. Drafted by Jada Mckoy MD on 09/25/2024 2:43 PM Final report signed by Tripp Ng MD on 09/25/2024 3:16 PM Narrative 09/25/2024 3:16 PM EDT CLINICAL INDICATION: Allo TXP TECHNIQUE: XR CHEST 2 VIEWS COMPARISON: None. FINDINGS: No air space disease. No pleural effusions or pneumothorax. Cardiac silhouette and mediastinal contour within normal limits. No acute osseous abnormality. Procedure Note Tripp Ng MD - 09/25/2024 CLINICAL INDICATION: Allo TXP TECHNIQUE: XR CHEST 2 VIEWS COMPARISON: None. FINDINGS: No air space disease. No pleural effusions or pneumothorax. Cardiacsilhouette and mediastinal contour within normal limits. No acute osseousabnormality. IMPRESSION: No acute cardiopulmonary findings. CRITICAL RESULT: No. COMMUNICATION: Per this written report. By electronically signing this report, I, the attending physician, attestthat I have personally reviewed the images/data for the aboveexamination(s) and agree with the final edited report. Drafted by Jada Mckoy MD on 09/25/2024 2:43 PM Final report signed by Tripp Ng MD on 09/25/2024 3:16 PM Mk Pastrana MD IMG XR PROCEDURES Final Resul t documented in this encounter Visit Diagnoses Not on filedocumented in this encounter Additional Health Concerns Assessment Noted Time A Body Mass Index follow-up plan has been documented for the patient 09/11/2024 6:12 PM EDT documented as of this encounter Care Teams Index Editor Relationship Specialty Start Date End Date Willi Frost MD [address] [facility] [address] [place] [address] PCP - General 06/11/24 documented as of this encounter
--- OUTSIDE RECORDS SUMMARY | 2024-09-25 14:00 | XMS_ITS | Encounter Summary ---
Author Organization [facility] Address [address] [place] [address] Care Team Providers Care Airplane Electrician Name Role Phone Willi Frost MD Primary Care Provider [phone] Reason for Referral * Imaging (Routine) - Closed Specialty Diagnoses / Procedures Referred By Contac t Referred To Contact Cardiology Diagnoses CML (chronic myelocytic leukemia) (CMS/HCC) Procedures Echo, Adult Transthoracic Complete Mk Pastrana MD [address] [facility] [address] [address] Phone: tel: fax: Referral ID Status Reason Start Date Expiration Date V isits Requested Visits Authorized [id number] Closed Perform Procedure 09/11/2024 03/13/2026 1 1 Reason for Visit * Reason Comments Procedure Echo * Imaging (Routine) - Closed Specialty Diagnoses / Procedures Referred By Contac t Referred To Contact Cardiology Diagnoses CML (chronic myelocytic leukemia) (CMS/HCC) Procedures Echo, Adult Transthoracic Complete Mk Pastrana MD [address] [facility] [address] [address] Phone: tel: fax: Referral ID Status Reason Start Date Expiration Date V isits Requested Visits Authorized [id number] Closed Perform Procedure 09/11/2024 03/13/2026 1 1 Encounter Details Date Type Department Care Team (Latest Contact Info) Description 09/25/2024 2:00 PM EDT - 09/25/2024 2:59 PM EDT Hospital Encounter [facility] Echo [address] [place] [phone] CML (chronic myelocytic leukemia) (CMS/HCC) Discharge Disposition: Home or Self Care Social [...] Sign Reading Time Taken Comments Blood Pressure 156/92 09/25/2024 2:50 PM EDT Pulse 97 09/25/2024 2:50 PM EDT Temperature - - Respiratory Rate 16 09/25/2024 2:08 PM EDT Oxygen Saturation 96% 09/25/2024 2:08 PM EDT Inhaled Oxygen Concentration - - Weight 58.2 kg (128 lb 4.9 oz) 09/25/2024 2:08 P M EDT Height - - Body Mass Index 21.35 09/25/2024 10:24 AM EDT documented in this encounter Medications at [...] CC Hematology/BMT and Cellular Therapy Program [address] [place] [phone] 10/30/2024 8:30 AM EDT Office Visit [facility]ology/BMT [facility] Cellular Therapy Program [address] [place] [phone] Radha Morelos, CONCRETE ANALYST [address] [facility] [address] [place] [phone] 11/13/2024 1:00 PM EDT Office Visit [facility] [address] [facility] [place] [address] Verena Montes PA [address] [facility] [address] [place] [address] 11/27/2024 1:30 PM EDT Clinical Support [facility] Hematology/BMT [facility] Cellular Therapy [facility] [address] [phone] 11/27/2024 2:00 PM EDT Office Visit [facility] Hematology/BMT [facility] Cellular Therapy Program [address] [phone] Mk Pastrana MD [address] [facility] [address] [place] [phone] documented as of this encounter Procedures Procedure Name Priority Date/Time Associated Diagnosis Comments ECHO, ADULT TRANSTHORACIC COMPLETE W/ STRAIN, 3D Routine 09/25/2024 2:54 PM EDT CML (chronic myelocytic leukemia) (CMS/HCC) documented in this encounter Results * ECHO, ADULT TRANSTHORACIC COMPLETE W/ STRAIN, 3D (09/25/2024 2:54 PM EDT) BSA 1.67 m2 WINDY ISCV Height 165.0 WINDY ISCV Weight 61.0 WINDY ISCV LVIDd 39 mm WINDY ISCV LVIDs 24 mm WINDY ISCV IVSd 8 mm WINDY ISCV LVPWd 9 mm WNIDY ISCV LV MASS(C)D 97 g WINDY ISCV [facility] CV ECHO LV MASS INDEX 58 g/m2 WINDY ISCV LV RWT 0.44 mm WINDY ISCV LV EDV (3D HM) 117 mL WINDY ISCV LV ESV (3D HM) 45 mL WINDY ISCV LV EF (3D HM) 62 % WINDY ISCV LVOT diam 21 mm WINDY ISCV LVOT AREA 3.5 cm2 WINDY ISCV MV E Vmax 94.3 cm/s WINDY ISCV MV A Vmax 95.4 cm/s WINDY ISCV MV E/A 1.0 cm/s WINDY ISCV LA dimension 16 mm WINDY ISCV RV s' Roberto 14.8 cm/s WINDY ISCV TAPSE 28 mm WINDY ISCV PA acc time 130 msec WINDY ISCV mean PAP 21 mmHg WINDY ISCV MV dec slope 572 cm/s2 WINDY ISCV MV dec time 170 ms WINDY ISCV MV P1/2t 49 ms WINDY ISCV MVA(P1/2t) 4.5 cm2 WINDY ISCV Ao Root Diam 32 mm WINDY ISCV PA MO(ACCEL) 18.7 mmHg WINDY ISCV LV Lat e' Velocity 9.3 cm/s WINDY ISCV LV Sept e' Roberto 9.6 cm/s WINDY ISCV Lat E/e' 10.1 WINDY ISCV Sep E/e' 9.8 WINDY ISCV Avg E/e' 10.0 WINDY ISCV Anatomical Region Laterality Modality Echocardiography Narrative 09/25/2024 4:26 PM EDT Left Ventricle: The left ventricle is normal size. There is normal left ventricular myocardial thickness and mass. The left ventricular systolic function is normal. The LVEF as measured by Heart Model 3D volume is 62%. The global longitudinal strain is normal (<-18%). Right Ventricle: The right ventricle is normal in size. The right ventricular systolic function is normal. Pericardium: There is a trace localized pericardial effusion around the right ventricle and right atrium. There is no echocardiographic evidence of cardiac tamponade. There is no recent study available for direct xggn-dt-vofw comparison. Left Ventricle The left ventricle is normal size. There is normal left ventricular myocardial thickness and mass. The left ventricular systolic function is normal. The LVEF as measured by Heart Model 3D volume is 62%. The global longitudinal strain is normal (<-18%). The diastolic function is normal. The septal motion is most consistent with a conduction abnormality. Right Ventricle The right ventricle is normal in size. The right ventricular systolic function is normal. The spectral Doppler envelope of TR is not adequate for calculating the right ventricular systolic pressure (RVSP). Based upon other 2D and Doppler features, the RVSP is probably normal or at most mildly elevated. Left Atrium The left atrial size is normal with an indexed volume of 16-34 mL/m2. The interatrial septum is intact with no evidence for an atrial septal defect. Right Atrium The right atrial size is normal. A prominent josé miguel terminalis is noted. IVC/SVC Based on the IVC size and respiratory variation, the estimated right atrial pressure is 3mmHg. Mitral Valve There is mild mitral annular calcification. There is mild mitral regurgitation. There is no mitral stenosis. Tricuspid Valve The tricuspid valve is normal in appearance. There is trace tricuspid regurgitation. There is no tricuspid stenosis. Aortic Valve The aortic valve appears to be trileaflet. There is no valvular regurgitation. There is no hemodynamically significant valvular aortic stenosis. Pulmonic Valve The pulmonic valve is normal in appearance. There is trace pulmonic regurgitation. There is no pulmonic stenosis. Pericardium There is a trace localized pericardial effusion around the right ventricle and right atrium. There is no echocardiographic evidence of cardiac tamponade. Great Vessels The aortic root is normal in size. The sinus of Valsalva (aortic root) diameter is 32 mm by leading edge to leading edge method. The ascending aorta is not well visualized. In the maximally visualized portion, the aortic arch appears normal in size. The main pulmonary artery is normal in size. Study Details A complete transthoracic echocardiogram using two-dimensional (2D), m-mode, color and spectral flow Doppler, 3D and strain imaging was performed. During the study the apical, parasternal, subcostal and suprasternal view was captured. Height: 165.0 cm. Weight: 61.0 kg. BSA: 1.67 m2. Study Recommendation There is no recent study available for direct [id number]-bt-uvqn comparison. us Mk Pastrana MD CV ECHO PROCEDURES Final Resu lt documented in this encounter Visit Diagnoses Diagnosis CML (chronic myelocytic leukemia) (CMS/HCC) Chronic myeloid leukemia, without mention of having achieved remission documented in this encounter Additional Health Concerns Assessment Noted Time A Body Mass Index follow-up plan has been documented for the patient 09/11/2024 6:12 PM EDT documented as of this encounter Care Teams Airplane Electrician Relationship Specialty Start Date End Date Willi Frost MD [address] [place] [address] PCP - General 06/11/24 documented as of this encounter
--- OUTSIDE RECORDS SUMMARY | 2024-09-25 15:00 | XMS_ITS | Encounter Summary ---
Author Organization [facility] Address [address] [place] [address] Care Team Providers Care Microfilm Camera Operator Name Role Phone Willi Frost MD Primary Care Provider [phone] Encounter Details Date Type Department Care Team (Latest Contact Info) Description 09/25/2024 3:00 PM EDT - 09/25/2024 11:59 PM EDT Hospital Encounter [facility] H Pulmonary Function Testing [address] [place] [address] CML (chronic myelocytic leukemia) ([facility]) Discharge Disposition: Home or Self Care Social [...] CC Hematology/BMT and Cellular Therapy Program 750 [facility] [address] [place] [phone] 10/30/2024 8:30 AM EDT Office Visit [facility] Hematology/BMT and Cellular Therapy Program [address] [place] [phone] Radha Morelos, ASSEMBLY LINE DRIVER 800 [facility] [address] [place] [phone] 11/13/2024 1:00 PM EDT Office Visit [facility] [address] [place] [address] Verena Montes PA [address] [phone] 11/27/2024 1:30 PM EDT Clinical Support [facility] Hematology/BMT and Cellular Therapy Program [address] [place] [phone] 11/27/2024 2:00 PM EDT Office Visit [facility] Hematology/BMT and Cellular Therapy Program [address] [place] [phone] Mk Pastrana MD 800 [facility] [address] [place] [phone] documented as of this encounter Procedures Procedure Name Priority Date/Time Associated Diagnosis Comments ID BREATHING CAPACITY TEST Routine 09/25/2024 4:31 PM EDT CML (chronic myelocytic leukemia) (CMS/HCC) documented in this encounter Results * Pulmonary function testing (09/25/2024 4:31 PM EDT) [id number] 3.21 L 09/25/2024 4:28 PM EDT VYAIRE PFT FVC PRED 3.18 09/25/2024 4:28 PM EDT VYAIRE PFT FVC PRELLN 2.51 09/25/2024 4:28 PM EDT VYAIRE PFT FVCPREZSCORE 0.06 09/25/2024 4:28 PM EDT VYAIRE PFT FVCPRE%PRED 101 % % 09/25/2024 4:28 PM EDT VYAIRE PFT FVC PREDAUTH US_Quanjer GLI (2011) 09/25/2024 4:28 PM EDT VYAIRE PFT FVC Z-SCORE 0.06 09/25/2024 4:28 PM EDT VYAIRE PFT FEV1 PRE 2.35 L 09/25/2024 4:28 PM EDT VYAIRE PFT FEV1 PRED 2.57 09/25/2024 4:28 PM EDT VYAIRE PFT FEV1 PRELLN 1.98 09/25/2024 4:28 PM EDT VYAIRE PFT UXN6YFTTNXUYX -0.62 09/25/2024 4:28 PM EDT VYAIRE PFT FEV1_Pre%Pred 92 % % 09/25/2024 4:28 PM EDT VYAIRE PFT FEV1 PREDAUTH US_Quanjer GLI (2011) 09/25/2024 4:28 PM EDT VYAIRE PFT FEV1 Z-SCORE -0.62 09/25/2024 4:28 PM EDT VYAIRE PFT FEV1/FVC PRE 73.32 % 09/25/2024 4:28 PM EDT VYAIRE PFT ZWU4CLQXGZL 81 09/25/2024 4:28 PM EDT VYAIRE PFT FEV1/FVC PRELLN 71 4:28 PM EDT VYAIRE PFT WTR0OWKZBDSWPILJ -1.25 09/26/19 4:28 PM EDT VYAIRE PFT FBL0POSSDE%PRED 91 % % 4:28 PM EDT VYAIRE PFT YUR9SXTQUZHH US_Quanjer GLI (2011) 09/25/2024 4:28 PM EDT VYAIRE PFT KXI9VXSVCIEYB -1 09/25/2024 4:28 PM EDT VYAIRE PFT BVL11-75% PRE 1.73 L/s 09/25/2024 4:28 PM EDT VYAIRE PFT WXY75-14%_Pred 2.51 09/25/2024 4:28 PM EDT VYAIRE PFT SMT00-46% PRELLN 1.38 09/26/19 4:28 PM EDT VYAIRE PFT BDH0304%PREZSCORE -1.08 025 4:28 PM EDT VYAIRE PFT BNR7134%PRE%PRED 69 % % 09/26/19 4:28 PM EDT VYAIRE PFT RYA3674%[facility] US_Quanjer GLI (2011) 09/25/2024 4:28 PM EDT VYAIRE PFT PEF PRE 6.46 L/s 09/25/2024 4:28 PM EDT VYAIRE PFT PEF PRED 6.35 09/25/2024 4:28 PM EDT VYAIRE PFT PEF PRELLN 4.87 09/25/2024 4:28 PM EDT VYAIRE PFT PEFPREZSCORE 0.12 09/25/2024 4:28 PM EDT VYAIRE PFT PEFPRE%PRED 102 % % 09/25/2024 4:28 PM EDT VYAIRE PFT PEF PREDAUT ECCS (1992) 09/25/2024 4:28 PM EDT VYAIRE PFT YGQEEMTSRXZUCOCE2FQQ 13.30 ml/(min* mmHg) 09/25/2024 4:28 PM EDT VYAIRE PFT DLCOSINGLEBREATH PRED 20.70 09/25/2024 4:28 PM EDT VYAIRE PFT DLCOSINGLEBREATH LLN 16.09 09/08 4:28 PM EDT VYAIRE PFT DLCOSINGLEBREATH Z-SCORE -2.83 09/25/2024 4:28 PM EDT VYAIRE PFT DLCOSINGLEBREATH % PRED 64.2 % 09/25/2024 4:28 PM EDT VYAIRE PFT DLCOSINGLEBREATH [facility] Stanarianna TLCO GLI (2019) 09/25/2024 4:28 PM EDT VYAIRE PFT DLCOSINGLEBREATH Z-SCORE -2.83 09/25/2024 4:28 PM EDT VYAIRE PFT DTEGHVESCAOQYAWSF8QV E 13.88 ml/(min* mmHg) 09/25/2024 4:28 PM EDT VYAIRE PFT DLCOCSINGLEBREATH PRED 20.70 09/25/2024 4:28 PM EDT VYAIRE PFT DLCOCSINGLEBREATH LLN 16.09 09/25/2024 4:28 PM EDT VYAIRE PFT DLCOCSINGLEBREATH Z-SCORE -2.56 09/25/2024 4:28 PM EDT VYAIRE PFT DLCOCSINGLEBREATH % PRED 67.1 % 09/25/2024 4:28 PM EDT VYAIRE PFT DLCOCSINGLEBREATH PREDAUTH Stanojevic TLCO GLI (2019) 09/25/2024 4:28 PM EDT VYAIRE PFT LCYRCX2SDM 2.90 ml/(min* mmHg*L) 09/25/2024 4:28 PM EDT VYAIRE PFT DLCOVAPRED 4.27 09/25/2024 4:28 PM EDT VYAIRE PFT DLCOVALLN 3.33 09/25/2024 4:28 PM EDT VYAIRE PFT DLCOVAZSCORE -2.47 09/25/2024 4:28 PM EDT VYAIRE PFT DLCOVA%PRED 68.0 % 09/25/2024 4:28 PM EDT VYAIRE PFT DLCOVAPREDAUTH Stanojevic TLCO GLI (2019) 09/25/2024 4:28 PM EDT VYAIRE PFT DLCOVAZSCORE -2.47 09/25/2024 4:28 PM EDT VYAIRE PFT ZFERWBXOV5XEF 3.03 ml/(min* mmHg*L) 09/25/2024 4:28 PM EDT VYAIRE PFT DLCOC SB/VA PRED 4.27 09/26/19 4:28 PM EDT VYAIRE PFT DLCOC SB/VA LLN 3.33 4:28 PM EDT VYAIRE PFT DLCOC SB/VA Z-SCORE -2.21 09/25 4:28 PM EDT VYAIRE PFT DLCOC SB/VA % PRED 71.0 % 2024 4:28 PM EDT VYAIRE PFT DLCOC SB/VA [facility] Cherry TLCO GLI (2019) 09/25/2024 4:28 PM EDT VYAIRE PFT DLCOC SB/VA Z-SCORE -2.21 09/25 4:28 PM EDT VYAIRE PFT LSPYPITUICGXWJ6FRE 4.58 L 2024 4:28 PM EDT VYAIRE PFT VASINGLEBREATH PRED 4.88 09/25 4:28 PM EDT VYAIRE PFT VASINGLEBREATH LLN 3.98 2024 4:28 PM EDT VYAIRE PFT VASINGLEBREATH Z-SCORE -0.52 09/25/2024 4:28 PM EDT VYAIRE PFT VASINGLEBREATH % PRED 94.0 % 09/25/2024 4:28 PM EDT VYAIRE PFT VASINGLEBREATH [facility] Cherry TLCO GLI (2019) 09/25/2024 4:28 PM EDT VYAIRE PFT VASINGLEBREATH Z-SCORE -0.52 09/25/2024 4:28 PM EDT VYAIRE PFT SRUPKDCWHHRLQPJ3GCJ 3.10 L 09/25 4:28 PM EDT VYAIRE PFT IVCSINGLEBREATH PRED 3.18 09/08 4:28 PM EDT VYAIRE PFT IVCSINGLEBREATH LLN 2.51 09/25 4:28 PM EDT VYAIRE PFT IVCSINGLEBREATH Z-SCORE -0.19 09/25/2024 4:28 PM EDT VYAIRE PFT IVCSINGLEBREATH % PRED 97.5 % 09/25/2024 4:28 PM EDT VYAIRE PFT IVCSINGLEBREATH [facility] _Quanjer GLI (2011) 09/25/2024 4:28 PM EDT VYAIRE PFT HB PRE 12.10 g(Hb)/dL 09/25/2024 4:28 PM EDT VYAIRE PFT LFG4GWK 5.21 L 09/25/2024 4:28 PM EDT VYAIRE PFT TLCPRED 5.29 09/25/2024 4:28 PM EDT VYAIRE PFT TLCLLN 4.31 09/25/2024 4:28 PM EDT VYAIRE PFT TLCULN 6.37 09/25/2024 4:28 PM EDT VYAIRE PFT TLCZSCORE -0.12 09/25/2024 4:28 PM EDT VYAIRE PFT TLC%PRED 98.6 % 09/25/2024 4:28 PM EDT VYAIRE PFT TLCPREDAUTH [facility] GLI (2019)__ 09/25/2024 4:28 PM EDT VYAIRE PFT VC0PRE 3.21 L 09/25/2024 4:28 PM EDT VYAIRE PFT VCPRED 3.18 09/25/2024 4:28 PM EDT VYAIRE PFT VCLLN 2.51 09/25/2024 4:28 PM EDT VYAIRE PFT VCULN 3.88 09/25/2024 4:28 PM EDT VYAIRE PFT VCZSCORE 0.06 09/25/2024 4:28 PM EDT VYAIRE PFT VC%PRED 100.7 % 09/25/2024 4:28 PM EDT VYAIRE PFT VCPREDAUTH US_Quanjer GLI (2011) 09/25/2024 4:28 PM EDT VYAIRE PFT IC0PRE 2.47 L 09/25/2024 4:28 PM EDT VYAIRE PFT ICPRED 2.59 09/25/2024 4:28 PM EDT VYAIRE PFT ICLLN 1.77 09/25/2024 4:28 PM EDT VYAIRE PFT ICULN 3.43 09/25/2024 4:28 PM EDT VYAIRE PFT IC Z-SCORE -0.24 09/25/2024 4:28 PM EDT VYAIRE PFT IC%PRED 95.3 % 09/25/2024 4:28 PM EDT VYAIRE PFT ICPREDAUTH [facility] GLI (2019)__ 09/25/2024 4:28 PM EDT VYAIRE PFT MXTRLDTW6YYF 2.74 L 09/25/2024 4:28 PM EDT VYAIRE PFT FRCPLETH PRED 2.74 09/25/2024 4:28 PM EDT VYAIRE PFT FRCPLETH LLN 1.94 09/25/2024 4:28 PM EDT VYAIRE PFT FRCPLETH ULN 3.74 09/25/2024 4:28 PM EDT VYAIRE PFT FRCPLETH Z-SCORE 0.01 09/26/19 4:28 PM EDT VYAIRE PFT FRCPLETH % PRED 100.3 % 4:28 PM EDT VYAIRE PFT FRCPLETH PREDAUT [facility] GLI (2019)__ 09/25/2024 4:28 PM EDT VYAIRE PFT NHN6QQM 0.68 L 09/25/2024 4:28 PM EDT VYAIRE PFT ERVPRED 1.01 09/25/2024 4:28 PM EDT VYAIRE PFT ERVLLN 0.40 09/25/2024 4:28 PM EDT VYAIRE PFT ERVULN 1.87 09/25/2024 4:28 PM EDT VYAIRE PFT ERV Z-SCORE -0.80 09/25/2024 4:28 PM EDT VYAIRE PFT ERV%PRED 67.5 % 09/25/2024 4:28 PM EDT VYAIRE PFT ERVPREDAUT [facility] GLI (2019)__ 09/25/2024 4:28 PM EDT VYAIRE PFT RV0PRE 2.01 L 09/25/2024 4:28 PM EDT VYAIRE PFT RVPRED 1.58 09/25/2024 4:28 PM EDT VYAIRE PFT RVLLN 0.95 09/25/2024 4:28 PM EDT VYAIRE PFT RVULN 2.42 09/25/2024 4:28 PM EDT VYAIRE PFT RVZSCORE 0.88 09/25/2024 4:28 PM EDT VYAIRE PFT RV%PRED 126.7 % 09/25/2024 4:28 PM EDT VYAIRE PFT RVPREDAUTH [facility] GLI (2019)__ 09/25/2024 4:28 PM EDT VYAIRE PFT RV%PNN2GEG 38.52 % 09/25/2024 4:28 PM EDT VYAIRE PFT RV%TLCPRED 30 09/25/2024 4:28 PM EDT VYAIRE PFT RV%TLCLLN 19 09/25/2024 4:28 PM EDT VYAIRE PFT RV%TLCULN 41 09/25/2024 4:28 PM EDT VYAIRE PFT RV%TLCZSCORE 1.32 09/25/2024 4:28 PM EDT VYAIRE PFT RV%TLC%PRED 130.0 % 09/25/2024 4:28 PM EDT VYAIRE PFT RV%TLCPREDAUTH [facility] GLI (2019)__ 09/25/2024 4:28 PM EDT VYAIRE PFT ETQ6JIC 2.89 L 09/25/2024 4:28 PM EDT VYAIRE PFT Anatomical Region Laterality Modality PFT 09/25/2024 3:47 PM EDT Narrative 09/30/2024 8:27 AM EDT Pulmonary Function Testing Report Amita Ortiz 54 y.o. underwent pulmonary function testing today at the [facility]. The patient underwent spirometry, lung volumes by body plethysmography, and diffusion capacity testing testing. All tests were appropriately administered via ATS/ERS criteria. Spirometry: Test quality: A. Test is acceptable and useable for interpretation. Normal spirometry Lung Volumes: Test Quality: Appropriate QA standards were met. Normal lung volumes. Diffusion Capacity: Test Quality: A. Data meets the highest standards for acceptability. Diffusion capacity corrected for Hb is moderately reduced. A reduced DLCO with a normal VA may be seen in conditions such as pulmonary vascular diseases, anemia, early ILD, and emphysema with preserved lung volumes. Trend: There are no prior studies for comparison. 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
--- OUTSIDE RECORDS SUMMARY | 2024-10-03 08:30 | XMS_ITS | Encounter Summary ---
Author Organization [facility] Address [address] [place] [address] Care Team Providers Care Rn Discharge Name Role Phone Willi Frost MD Primary Care Provider Reason for Visit * Reason Comments Labs Nurse Visit Encounter Details Date Type Department Care Team ([facility] Contact Info) Description 10/03/2024 8:30 AM EDT Clinical Support [facility] CC Hematology/BMT and Cellular Therapy Program [address] [phone] Social History Tobacco Use Types [...] Upcoming Encounters Date Type Department Care Team ([facility] Contact Info) Description 10/30/2024 8:00 AM EDT Clinical Support [facility] CC Hematology/BMT and Cellular Therapy Program [address] [phone] 10/30/2024 8:30 AM EDT Office Visit [facility] CC Hematology/BMT and Cellular Therapy Program [address] [phone] Radha Morelos, CHIEF OF PRODUCTION [address] [facility] [address] [place] [phone] 11/13/2024 1:00 PM EDT Office Visit [facility] [address] [place] [phone] Verena Montes PA 3101 [facility] [address] [place] [phone] 11/27/2024 1:30 PM EDT Clinical Support [facility] CC Hematology/BMT and Cellular Therapy Program [address] [place] [address] 11/27/2024 2:00 PM EDT Office Visit [facility] CC Hematology/BMT and Cellular Therapy Program [address] [place] [place] [address] Mk Pastrana MD 800 [facility] [address] [place] [phone] documented as of this encounter Visit Diagnoses Not on filedocumented in this encounter Additional Health Concerns Assessment Noted Time A Body Mass Index follow-up plan has been documented for the patient 09/11/2024 6:12 PM EDT documented as of this encounter Care Teams Rn Discharge Relationship Specialty Start Date End Date Willi Frost MD [facility] [address] [place] [address] PCP - General 06/11/24 documented as of this encounter
--- OUTSIDE RECORDS SUMMARY | 2024-10-03 09:00 | XMS_ITS | Encounter Summary ---
Author Organization [facility] Address [address] [place] [address] Care Team Providers Care Pharmacovigilance Scientist Name Role Phone Willi Frost MD Primary Care Provider [phone] Reason for Visit * Reason Comments Procedure * Genetic Testing (Routine) - Authorized Specialty Diagnoses / Procedures Referred By Contac t Referred To Contact Lab Diagnoses CML (chronic myelocytic leukemia) (CMS/HCC) Procedures Leukemia/Lymphoma - Immunophenotyping by Flow Cytometry Mk Pastrana MD [address] [facility] [address] [place] [phone] Phone: tel: fax: Referral ID Status Reason Start Date Expiration Date V isits Requested Visits Authorized [id number] Authorized 08/20/2024 02/19/2026 1 1 Encounter Details Date Type Department Care Team (Latest Contact Info) Description 10/03/2024 9:00 AM EDT Procedure Visit [facility] Hematology/BMT and Cellular Therapy Program [address] [place] [address] Bhavana Bella, MARCY [address] [facility] [address] [place] [phone] CML (chronic myelocytic leukemia) (CMS/HCC) (Primary [...] Sign Reading Time Taken Comments Blood Pressure 152/95 10/03/2024 8:43 AM EDT Pulse 63 10/03/2024 8:43 AM EDT Temperature 36.5 C (97.7 F) 10/03/2024 8:43 AM EDT Respiratory Rate 17 10/03/2024 8:43 AM EDT Oxygen Saturation 100% 10/03/2024 8:43 AM EDT Inhaled Oxygen Concentration - - Weight 60 kg (132 lb 4.4 oz) 10/03/2024 8:43 AM EDT Height 165.1 cm (5' 5 ) 10/03/2024 8:43 AM EDT Body Mass Index 22.01 10/03/2024 8:43 AM EDT documented in this encounter Miscellaneous Notes * Progress Notes - Bhavana Bella APRN - 10/03/2024 9:00 AM EDTAssociated Order(s): Biopsy bone marrow Post-Procedure Diagnose(s): CML (chronic myelocytic leukemia) (CMS/HCC) Patient Name: Amita Ortiz Date of : 1970 54 y.o. Date: 10/03/24 Encounter Diagnosis Name Primary? CML (chronic myelocytic leukemia) (CMS/HCC) Yes Biopsy bone marrow Performed by: Bhavana Bella APRN Authorized by: Bhavana Bella APRN Consent: Consent obtained: Written Consent given by: Patient Risks, benefits, and alternatives were discussed: yes Procedural risks discussed: pain, infectection, bleeding, nerve damage, hematoma, bruising, damage to surronding structures. Alternatives discussed: Delayed treatment [place] protocol: Procedure explained and questions answered to patient or proxy's satisfaction: yes Relevant documents present and verified: yes Test results available: yes Required blood products, implants, devices, and special equipment available: yes Site/side marked: yes Immediately prior to procedure, a time out was called: yes Patient identity confirmed: Verbally with patient and arm band Indications: Indications: Evaluation of disease Pre-procedure details: Skin preparation: Povidone-iodine Preparation: Patient was prepped and draped in the usual sterile fashion Sedation: Sedation type: Anxiolysis (0.5 mg PO ativan) Anesthesia: Anesthesia method: Local infiltration Local anesthetic: Lidocaine 1% w/o epi Procedure specific details: The patient was placed in the prone position. The left posterior iliac crest was identified and thesite was marked. The area was sterile prepped and draped. Local anesthetic was injected superficially at the marked site, then into deeper tissues, including periosteally. A small incision was made at the site and an 11 gauge Jamshidi needle was inserted into the left posterior iliac crest. Bone mar row aspirate and core biopsy were obtained from a single anchor. Additional anchor performed to obtain core biopsy. The instrument was then removed and pressure was held at the site. The area was cleaned and a dry sterile pressure dressing was applied. The patient was placed in the supine recumbentposition. Post-procedure details: Procedure completion: Tolerated well, no immediate complications documented in this encounter Plan of Treatment Upcoming Encounters Date Type Department Care Team ([facility] st Contact Info) Description 10/30/2024 8:00 AM EDT Clinical Support [facility] Hematology/BMT and Cellular Therapy Program [address] [phone] 10/30/2024 8:30 AM EDT Office Visit [facility] Hematology/BMT and Cellular Therapy Program [address] [phone] Radha Morelos APRN [address] [facility] [address] [place] [phone] 11/13/2024 1:00 PM EDT Office Visit [facility] [address] [place] [address] Verena Montes PA [address] [facility] [address] [place] [address] 11/27/2024 1:30 PM EDT Clinical Support [facility] Hematology/BMT and Cellular Therapy Program [address] [place] [address] 11/27/2024 2:00 PM EDT Office Visit [facility] Hematology/BMT and Cellular Therapy Program [address] [place] [address] Mk Pastrana MD [address] [facility] [address] [place] [phone] documented as of this encounter Procedures Procedure Name Priority Date/Time Associated Diagnosis Comments BIOPSY BONE MARROW Routine 10/03/2024 9: 00 AM EDT CML (chronic myelocytic leukemia) ([facility]/HCC) MYELOID FOCUSED PANEL, 50 GENE Routine 10/03/2024 8:48 AM EDT CML (chronic myelocytic leukemia) ([facility]/HCC) FISH, ONCOLOGY Routine 10/03/2024 8:48 AM EDT CML (chronic myelocytic leukemia) ([facility]) CYTOGENETICS TESTING, ONCOLOGY Routine 10/03/2024 8:48 AM EDT CML (chronic myelocytic leukemia) ([facility]) CHROMOSOME KARYOTYPE, ONCOLOGY Routine 10/03/2024 8:48 AM EDT CML (chronic myelocytic leukemia) ([facility]) LEUKEMIA/LYMPHOMA - IMMUNOPHENOTYPING BY FLOW CYTOMETRY Routine 10/03/2024 8:48 AM EDT CML (chronic myelocytic leukemia) ([facility]) BONE MARROW EXAM Routine 10/03/2024 8:48 AM EDT CML (chronic myelocytic leukemia) ([facility]) CBC WITH AUTO DIFFERENTIAL Routine 10/03/2024 8:18 AM EDT CML (chronic myelocytic leukemia) ([facility]) documented in this encounter Results * BIOPSY BONE MARROW (10/03/2024 9:00 AM EDT) Narrative Bhavana Bella APRN - 10/03/2024 9:00 AM EDT Bhavana Bella APRN 10/03/2024 11:39 AM Biopsy bone marrow Performed by: Bhavana Bella APRN Authorized by: Bhavana Bella APRN Consent: Consent obtained: Written Consent given by: Patient Risks, benefits, and alternatives were discussed: yes Procedural risks discussed: pain, infectection, bleeding, nerve damage, hematoma, bruising, damage to surronding structures. Alternatives discussed: Delayed treatment [place] protocol: Procedure explained and questions answered to patient or proxy's satisfaction: yes Relevant documents present and verified: yes Test results available: yes Required blood products, implants, devices, and special equipment available: yes Site/side marked: yes Immediately prior to procedure, a time out was called: yes Patient identity confirmed: Verbally with patient and arm band Indications: Indications: Evaluation of disease Pre-procedure details: Skin preparation: Povidone-iodine Preparation: Patient was prepped and draped in the usual sterile fashion Sedation: Sedation type: Anxiolysis (0.5 mg PO ativan) Anesthesia: Anesthesia method: Local infiltration Local anesthetic: Lidocaine 1% w/o epi Procedure specific details: The patient was placed in the prone position. The left posterior iliac crest was identified and the site was marked. The area was sterile prepped and draped. Local anesthetic was injected superficially at the marked site, then into deeper tissues, including periosteally. A small incision was made at the site and an 11 gauge Jamshidi needle was inserted into the left posterior iliac crest. Bone marrow aspirate and core biopsy were obtained from a single anchor. Additional anchor performed to obtain core biopsy. The instrument was then removed and pressure was held at the site. The area was cleaned and a dry sterile pressure dressing was applied. The patient was placed in the supine recumbent position. 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 Abnormal ABL1/ASS1/BCR FISH analysis. FISH studies found evidence of ABL1::BCR gene fusion in 78.5% of interphase cells with 6.5% of cells showing variant fusion patterns which may indicate disease progression. The majority of abnormal cells demonstrate a dual fusion pattern that is expected to result from a t(9;22)(q34.1;q11. 2). The remaining abnormal cells have three to four fusion signals. This is indicative of cells with an additional copies of the [place] chromosome. Gain of a Ph chromosome is one of the common additional cytogenetic abnormalities (ACAs) in CML. Additional chromosomal abnormalities (ACAs) are frequent in CML patients, and are considered a hallmark of multistep disease progression, associated with an adverse prognostic effect during the progressive or advanced stages of CML (Marlee TUCKER et al., 2019. PMID: [id number]). 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 Clinical correlation is recommended. 10/10/2024 2:57 PM EDT [facility] ISCN nuc hilda(ABL1x3,ASS1x2, BCRx3)(ABL1 con ASS1x1)(ABL1 con ASS1 con BCRx1)(ABL1 con BCRx1)[144/200]/(A BL1x5,ASS1x4,BCRx5 )(ABL1 con ASS1x2)(ABL1 con ASS1 con BCRx2)(ABL1 con BCRx2)[5/200]/(ABL 1x6,ASS1x4,BCRx6)( ABL1 con ASS1x2)(ABL1 con ASS1 con BCRx2)(ABL1 con BCRx2)[5/200]/(ABL 1x4,ASS1x2,BCRx5)( ABL1 con ASS1x1)(ABL1 con ASS1 con BCRx1)(ABL1 con BCRx2)[1/200]/(ABL 1x5,ASS1x4,BCRx4)( ABL1 con ASS1x2)(ABL1 con ASS1 con BCRx2)(ABL1 con BCRx1)[1/200]/(ABL 1x5,ASS1x3,BCRx5)( ABL1 con ASS1x2)(ABL1 con ASS1 con BCRx1)(ABL1 con BCRx2)[1/200] METHOD: Fluorescence in situ hybridization (FISH) was performed using 3 Vysis/Segundo fluorescent labeled probes which hybridize to the following chromosomal regions: ABL1(9q34), ASS1(9q34) and BCR(22q11.2). One metaphase cell was analyzed and probe location was confirmed for these assays. At least one metaphase cell and 200 interphase cells are analyzed for a complete FISH test, and litigation claim representative images were captured and stored using Eventap software ([employer].). The normal controls ran in parallel with this specimen gave the expected hybridization results. The normal cutoffs for bone marrow and peripheral blood for marrow have been established in this lab by probe validation. 10/10/2024 2:57 PM EDT [facility] Disclaimer This test was developed and its performance characteristics determined by the [facility]. It has not been cleared or approved by the US Food and Drug Administration. The FDA does not require this test to go through premarket FDA review. This test is used for clinical purposes. It should not be regarded as investigational or for research. This laboratory is certified under the Clinical Laboratory Improvement Amendments (CLIA) as qualified to perform high complexity clinical laboratory testing. See [id number] for the chromosome analysis results on this specimen. 10/10/2024 2:57 PM EDT [facility] Pathologist Signature Reviewed by: Og Duque 10/10/2024 2:57 PM EDT [facility] Bone Marrow Non-blood Collection / Unknown 10/03/2024 8:48 AM EDT 10/03/2024 10:49 AM EDT us Mk Pastrana MD LAB CYTOGENETICS ORDERABLES F inal Result [facility] [address] [place] [address] * Chromosome Karyotype, Oncology (10/03/2024 8:48 AM EDT) Specimen Type Bone Marrow 10/10/2024 5:48 PM EDT [facility] Clinical Indication Chronic Myelogenous Leukemia 10/10/2024 5:48 PM EDT [facility] Specimen Adequacy Adequate 025 5:48 PM EDT [facility] Chromosome Analysis Result Giemsa-banded metaphase cells from unstimulated bone marrow cultures showed the following chromosome pattern: 46,XX,t(9;22)(q 34.1;q11.2)[13] /47,XX,idem,+8[ 7] 10/10/2024 5:48 PM EDT [facility] Interpretation Abnormal female chromosome analysis. All metaphase cells analyzed showed a t(9;22)(q34.1;q 11.2). This was a previous abnormality reported in a 06/15/23 bone marrow specimen from an outside hospital. 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 Trisomy 8 is one of the common major route additional chromosome abnormalities, reportedly to be associated with long er times to achieve complete cytogenetic and molecular remission ([facility] et al., 2022. PMID: [id number]). These findings also indicate progression of current condition. Clinical correlation is recommended. Note: Per [employer] (CAP) requirement additional karyotypes were performed and charged due to the presence of clonal abnormalities. See [facility]-[id number] for the FISH analysis results. # cells counted = 20 # cells analyzed = 20 # cells karyotyped = 4 Band resolution: 400-425 10/10/2024 5:48 PM EDT [facility] Pathologist Signature Reviewed by: Og Duque 10/10/2024 5:48 PM EDT [facility] Bone Marrow Non-blood Collection / Unknown 10/03/2024 8:48 AM EDT 10/03/2024 10:49 AM EDT us Mk Pastrana MD LAB CYTOGENETICS ORDERABLES F inal Result [facility] [address] [place] [address] * Myeloid Focused Panel, 50 gene (10/03/2024 8:48 AM EDT) Interpretation The following three (3) genes with persistent variants have been detected in this bone marrow specimen. These gene variants were detected on 06/15/2023. Gene: DNMT3A Mutation: c.1208delA; p.Pld125CfwphNwv5 Allele Frequency (%): 43% Gene: ASXL1 Mutation: c.1934dupG; p.Rvf987ArzgqTqf16 Allele Frequency (%): 26% ID: [id number] Gene: BCOR Mutation: c.4936delC; p.[id number] 8 Allele Frequency (%): 11% Additional Details on Mutation Identified: Gene Transcript Genome Chrom Coordinate RefVar DNMT3A [id number] Hg19 2 [id number] Jose ASXL1 [id number] Hg19 20 [id number] dupG BCOR [id number] Hg19 X [id number] delC 10/14/2024 5:04 PM EDT [facility] Methodology The following 50 genes were [...] then sequenced on the Illumina NextSeq 2000 ([employer], [place]). A custom bioinformatics pipeline aligns [...] of hematologic malignancies. 10/14/2024 5:04 PM EDT [facility] Disclaimer This test was developed and its performance characteristics determined by the Clinical Molecular and Genomic Pathology Laboratory at the [facility]. It has not been cleared or approved [...] clinical laboratory testing. 10/14/2024 5:04 PM EDT [facility] Pathologist Signature Reviewed by: Og Duque 10/14/2024 5:04 PM EDT [facility] Bone Marrow Specimen from bone marrow obtained by aspiration / Unknown Non-blood Collection / Unknown 10/03/2024 8:48 AM EDT 10/03/2024 10:21 AM EDT us Mk Pastrana MD LAB MOLECULAR DIAGNOSTICS ORD ERABLES Final Result [facility] [address] [place] [address], * Leukemia/Lymphoma - Immunophenotyping by Flow Cytometry (10/03/2024 8:48 AM EDT) Clinical Indication CML 10/03/2024 1:16 PM EDT [facility] Flow Cytometry Interpretation MIXED MARROW ELEMENTS WITHOUT EVIDENCE OF INCREASED BLASTS OR ABNORMAL LYMPHOID POPULATIONS, BONE MARROW ASPIRATE. 10/03/2024 1:16 PM EDT [facility] Comments Specimen viability is 88%. [...] lymphoid populations. Final interpretation requires morphologic correlation ([id number]). The following antibodies were used in this analysis: CD45, CD2, CD3, CD4, CD5, CD7, CD8, CD10, CD13, CD14, CD15, CD16, CD19, CD20, CD33, CD34, CD38, CD56, CD117, HLA-DR, kappa surface light chains, lambda surface light chains 10/03/2024 1:16 PM EDT [facility] Disclaimer This test was developed and its performance characteristics determined by the Immuno-Molecular Pathology Laboratory at the [facility]. It has not been cleared or approved [...] clinical laboratory testing. 10/03/2024 1:16 PM EDT [facility] Pathologist Signature Reviewed by: Kathi Soria MD 10/03/2024 1:16 PM EDT [facility] MRD Indicated Test Not Indicated 1:16 PM EDT [facility] Bone Marrow Specimen from bone marrow obtained by aspiration / Unknown Non-blood Collection / Unknown 10/03/2024 8:48 AM EDT 10/03/2024 10:18 AM EDT us Mk Pastrana MD LAB FLOW CYTOMETRY ORDERABLES Final Result [facility] [address] [place] [address] * Bone marrow exam (10/03/2024 8:48 AM EDT) Case Report Bone Marrow Case: [id number] Authorizing Provider: Mk Pastrana MD Collected: 10/03/2024 0848 Ordering Location: [facility] Hematology/BMT and Received: 10/03/2024 0954 Cellular Therapy Program Pathologist: Kathi Soria MD Specimens: A) - Bone Marrow Aspirate, left B) - Bone Marrow Biopsy, left C) - Peripheral Blood for Bone Marrow 3:18 PM EDT [facility] Final Diagnosis BONE MARROW, LEFT POSTERIOR ILIAC CREST, (PERIPHERAL SMEAR, ASPIRATE SMEARS, AND CORE BIOPSY): -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 - MILD RETICULIN FIBROSIS (PATCHY GRADE 1); NO INCREASE IN BLASTS, SEE COMMENT. 3:18 PM EDT [facility] at 1518 EDT Comment The patient has a history of chronic myeloid leukemia, and accompanying karyotype on prior specimen showed the presence of the [place] chromosome ([id number]). In the current specimen, erythroid precursors show megaloblastoid changes. Granulopoiesis is reduced and left-shifted. Megakaryocytes are increased in some of the aspirate spicules and exhibit small hypolobated forms. There is no evidence of increased blasts or increased fibrosis in the current specimen. Clinical correlation is recommended. 3:18 PM EDT [facility] Clinical Information CML ([place] positive) Now worsening neutropenia and thrombocytopenia 3:18 PM EDT [facility] CBC and Differential PERIPHERAL BLOOD: [...] and show normal morphology. 3:18 PM EDT [facility] Bone Marrow Differential BONE MARROW DIFFERENTIAL: 300 cells Normal Patient Neutrophils 15-50 9 Metamyelocytes 4-19 9 Myelocytes 1-18 13 Promyelocytes 1-8 10 Blasts 0-2 1 Monocytes 0-5 2 Erythroid 16-38 50 Lymphocytes 3-24 2 Eosinophils 0-6 2 Basophils 0-2 1 Plasma cells 0-4 1 Other 3:18 PM EDT [facility] Bone Marrow Aspirate and Biopsy Core biopsy [...] granulomas are identified. Bone trabeculae are unremarkable. 3:18 PM EDT [facility] Special and Immunohistochemical Stains Immunohistochemica l stains [...] developed by and are performed at the [facility], [address] [place] [address]. All tests reported here, except those addressing [...] likelihood of false negativity on decalcified specimens. 3:18 PM T [facility] Flow Cytometry Interpretation MIXED MARROW ELEMENTS WITHOUT EVIDENCE OF INCREASED BLASTS OR ABNORMAL LYMPHOID POPULATIONS, BONE MARROW ASPIRATE ([id number]). 3:18 PM EDT [facility] CYTOGENETICS/MOLECUL AR INTERPRETATION Correlation with cytogenetics/FISH/ molecular analysis is suggested. 3:18 PM T [facility] Gross Description B. LEFT A single specimen is received in formalin labeled bone marrow biopsy left posterior iliac crest and consists of 2 piece(s) of red/white tissue measuring 0.4/0.6 cm in length 0.2 cm in diameter. The specimen is submitted in to Histology for decalcification and routine processing. Cold Time: 1m 3:18 PM T [facility] Note: A resident was involved in the service. I attest I examined the relevant preparations for the specimens and confirmed the diagnosis or interpretation. 3:18 PM T [facility] Bone Marrow Peripheral blood specimen / Unknown Non-blood Collection / Unknown 10/03/2024 8:48 AM EDT 10/03/2024 9:54 AM EDT Bone marrow specimen (specimen) Specimen from bone marrow obtained by biopsy / Unknown 10/03/2024 8:48 AM EDT 10/03/2024 9:54 AM EDT Bone marrow specimen (specimen) Peripheral blood specimen / Unknown 10/03/2024 8:48 AM EDT 10/03/2024 9:55 AM EDT Mk Pastrana MD LAB PATHOLOGY ORDERABLES Nani luis Result [facility] [address] [place] [address] * (ABNORMAL) CBC and Differential (10/03/2024 8:18 AM EDT) WBC Count 1.93(L) 3.70 - 10.30 10*3/uL LAB HEMATOLOGY METHOD 10/03/2024 8:44 AM EDT [facility] RBC Count 3.42(L) 3.90 - 5.20 10*6/uL LAB HEMATOLOGY METHOD 10/03/2024 8:44 AM EDT [facility] HGB 11.2 11.2 - 15.7 g/dL LAB HEMATOLOGY METHOD 10/03/2024 8:44 AM EDT [facility] HCT 34.0 34.0 - 45.0 % LAB HEMATOLOGY METHOD 10/03/2024 8:44 AM EDT [facility] Platelet Count 94(L) 155 - 369 10*3/uL LAB HEMATOLOGY METHOD 10/03/2024 8:44 AM EDT [facility] MCV 99(H) 79 - 98 fL LAB HEMATOLOGY METHOD 10/03/2024 8:44 AM EDT [facility] MCH 32.7(H) 26.0 - 32.0 pg LAB HEMATOLOGY METHOD 10/03/2024 8:44 AM EDT [facility] MCHC 32.9 30.7 - 35.5 g/dL LAB HEMATOLOGY METHOD 10/03/2024 8:44 AM EDT [facility] RDW 17.4(H) 11.5 - 14.5 % LAB HEMATOLOGY METHOD 10/03/2024 8:44 AM EDT [facility] MPV 10.3 8.8 - 12.5 fL LAB HEMATOLOGY METHOD 10/03/2024 8:44 AM EDT [facility] nRBC 1.0(H) <=0.0 per 100 WBCs LAB HEMATOLOGY METHOD 10/03/2024 8:44 AM EDT [facility] Differential Type Automated LAB HEMATOLOGY METHOD 10/03/2024 8:44 AM EDT [facility] Neutrophils % 25 % LAB HEMATOLOGY METHOD 10/03/2024 8:44 AM EDT [facility] Lymphocytes % 66 % LAB HEMATOLOGY METHOD 10/03/2024 8:44 AM EDT [facility] Monocytes % 6 % LAB HEMATOLOGY METHOD 10/03/2024 8:44 AM EDT [facility] Eosinophils % 1 % LAB HEMATOLOGY METHOD 10/03/2024 8:44 AM EDT [facility] Basophils % 1 % LAB HEMATOLOGY METHOD 10/03/2024 8:44 AM EDT [facility] Immature Granulocytes % 1 % LAB HEMATOLOGY METHOD 10/03/2024 8:44 AM EDT [facility] Neutrophils Absolute 0.48(LL) 1.60 - 6.10 10*3/uL LAB HEMATOLOGY METHOD 10/03/2024 8:44 AM EDT [facility] Lymphocytes Absolute 1.28 1.20 - 3.90 10*3/uL LAB HEMATOLOGY METHOD 10/03/2024 8:44 AM EDT [facility] Monocytes Absolute 0.11(L) 0.30 - 0.90 10*3/uL LAB HEMATOLOGY METHOD 10/03/2024 8:44 AM EDT [facility] Eosinophils Absolute 0.02 0.00 - 0.50 10*3/uL LAB HEMATOLOGY METHOD 10/03/2024 8:44 AM EDT [facility] Basophils Absolute 0.02 0.00 - 0.10 10*3/uL LAB HEMATOLOGY METHOD 10/03/2024 8:44 AM EDT [facility] Immature Granulocytes Absolute 0.02 0.00 - 0.06 10*3/uL LAB HEMATOLOGY METHOD 10/03/2024 8:44 AM EDT [facility] Blood Venous blood specimen / Unknown Venipuncture / Unknown 10/03/2024 8:18 AM EDT 10/03/2024 8:34 AM EDT [facility] HEALTHCARE LAB - 10/03/2024 8:44 AM EDT Therapeutic decision making should be based on absolute values, rather than percentages. us Bhavana Bella APRN LAB BLOOD ORDERABLES Final Result [facility] [address] [place] [id number] documented in this encounter Visit Diagnoses Diagnosis CML (chronic myelocytic leukemia) (CMS/HCC)- Primary Chronic myeloid leukemia, without mention of having achieved remission documented in this encounter Administered Medications Inactive Administered Medications - up to 3 most recent administrations Medication Order MAR Action Action Date Dose Rate Site LORazepam (Ativan) tablet 0.5 mg 0.5 mg, Oral, Once, 1 dose, On Chloe 10/03/24 at 0930, Routine Given 10/03/2024 9:15 AM EDT 0.5 mg documented in this encounter Additional Health Concerns Assessment Noted Time A Body Mass Index follow-up plan has been documented for the patient 09/11/2024 6:12 PM EDT documented as of this encounter Care Teams Pharmacovigilance Scientist Relationship Specialty Start Date End Date Willi Frost MD [address] [place] [address] [address] [place] [address] PCP - General 06/11/24 documented as of this encounter
--- OUTSIDE RECORDS SUMMARY | 2024-10-08 09:30 | XMS_ITS | Encounter Summary ---
Author Organization [facility] Address [address] [place] [address] Care Team Providers Care Pretzel Twister Name Role Phone Willi Frost MD Primary Care Provider [phone] Encounter Details Date Type Department Care Team ([facility] Contact Info) Description 10/08/2024 9:30 AM EDT Office Visit [facility] Cellular Therapy [facility] [address] [phone] Social History Tobacco Use Types Packs/Day Years [...] Upcoming Encounters Date Type Department Care Team ([facility] Contact Info) Description 10/30/2024 8:00 AM EDT Clinical Support [facility] [address] [phone] 10/30/2024 8:30 AM EDT Office Visit [facility] Cellular Therapy [facility] [address] [phone] Radha Morelos, [employer] [address] [facility] [address] [place] [phone] 11/13/2024 1:00 PM EDT Office Visit [facility] [address] [place] [phone] Verena Montes PA [address] [facility] [address] [place] [address] 11/27/2024 1:30 PM EDT Clinical Support [facility]BMT [facility] Cellular Therapy [facility] [address] [phone] 11/27/2024 2:00 PM EDT Office Visit [facility] Cellular Therapy [facility] [address] [phone] Mk Pastrana MD [address] [facility] [address] [place] [phone] documented as of this encounter Visit Diagnoses Not on filedocumented in this encounter Additional Health Concerns Assessment Noted Time A Body Mass Index follow-up plan has been documented for the patient 09/11/2024 6:12 PM EDT documented as of this encounter Care Teams Pretzel Twister Relationship Specialty Start Date End Date Willi Frost MD [facility] [address] [place] [address] PCP - General 06/11/24 documented as of this encounter
--- OUTSIDE RECORDS SUMMARY | 2024-10-08 10:00 | XMS_ITS | Encounter Summary ---
Author Organization [facility] Address [address] [place] [address] Care Team Providers Care Greige Goods Examiner Name Role Phone Willi Frost MD Primary Care Provider [phone] Reason for Referral * Consultation (Urgent) - Authorized Specialty Diagnoses / Procedures Referred By Contac t Referred To Contact Infectious Diseases Diagnoses Acquired syphilis Mk Pastrana MD [address] [facility] [address] [address] Phone: tel: fax: Referral ID Status Reason Start Date Expiration Date Visits Requested Visits Authorized [id number] Authorized Specialty Services Required 10/08/2024 04/09/2026 1 1 Encounter Details Date Type Department Care Team (Latest Contact Info) Description 10/08/2024 10:00 AM EDT Office Visit [facility] Hematology/BMT and Cellular Therapy Program [address] [place] [phone] Mk Pastrana MD [address] [facility] Cancer [address] [phone] CML (chronic myelocytic leukemia) (CMS/HCC) [...] : 1970 REFERRING PHYSICIAN: Mk Pastrana MD [address] [place] [phone] Encounter Date: 10/08/2024 Patient Care Team: Willi [...] - Peripheral blood flow cytometry performed in [place] for leukocytosis revealed 3% myeloblasts with maturing [...] lesions 06/15/23 - Bone marrow biopsy in [place] was consistent with chronic myeloid leukemia with [...] mg p.o. nightly. 10/2023 - Relocated to [facility] and established care with Fredrick Bateman in [place], [place], for hematology/oncology follow-up. By that point, the patient had been on nilotinib 300 mg p.o. twice daily for several weeks. CBC with differential was normal. BCR-ABL testing on peripheral bloodrevealed PCR positivity of 26.98% (b2a2 transcript), 17.66% (B3 A2 transcript, [id number]), and 0.0403% (ela2, [id number] transcript). The recommendation was to continue current therapy. 11/22/23 - Transferred care to [facility] hematology/oncology. 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 No mutations were found at common [...] edema. I also discussed the risk of [id number] disease (acute or chronic), which may require [...] weeks Continue transplant workups Mk Pastrana M.D. [employer] Specialist Division of Hematology/BMT [facility] * Progress Notes - Jojo Iyer, PharmD [...] 150 mgQPM. She transferred her care to [place] in October 2023 and was found have [...] ABL1 International Scale (Percent) 45.9300 See Note 31.1629 20.4857 Treatment/Therapy Plan: Ponatinib 45 mg PO [...] Upcoming Encounters Date Type Department Care Team ([facility] st Contact Info) Description 10/30/2024 8:00 AM EDT Clinical Support [facility] Hematology/BMT and Cellular Therapy Program [address] [place] [phone] 10/30/2024 8:30 AM EDT Office Visit [facility]ology[facility] Cellular Therapy Program [address] [place] [phone] Radha Morelos, ASBESTOS SURVEYOR [address] [facility] [address] [place] [phone] 11/13/2024 1:00 PM EDT Office Visit [address] [place] [address] [place] [address] [place] [phone] 11/27/2024 1:30 PM EDT Clinical Support [facility] Cellular Therapy Program [address] [place] [phone] 11/27/2024 2:00 PM EDT Office Visit [facility]BMT [facility] Cellular Therapy Program [address] [phone] Mk Pastrana MD [address] [facility] [address] [place] [phone] Scheduled Referrals Name Type Priority Associated Diagnoses [...] Pos 1:1(A) <1:1 10/09/2024 2:18 AM EDT [facility] Blood Venous blood specimen / Unknown Venipuncture / Unknown 10/08/2024 9:39 AM EDT 10/08/2024 9:57 AM EDT Mk Pastrana MD LAB BLOOD ORDERABLES Final Re sult Performing Organization Address City/[facility]/ZIP Co de Phone Number [facility] [address] [place] [address] * (ABNORMAL) RPR Screening with Rflex to Titer (10/08/2024 9:39 AM EDT) Pathologist [facility] Rapid Plasma Reagin Reactive( A) Non Reactive 10/09/2024 1:33 AM EDT [facility] Blood Venous blood specimen / Unknown Venipuncture / Unknown 10/08/2024 9:39 AM EDT 10/08/2024 9:57 AM EDT Mk Pastrana MD LAB BLOOD ORDERABLES Final Re sult Performing Organization Address [facility] Co de Phone Number [facility] [address] [place] [address] * (ABNORMAL) Treponema Pallidum (Syphilis) Antibodies with Reflex to RPR and RPR Titer (Those with NOknown Syphilis) (10/08/2024 9:39 AM EDT) [facility] Syphilis Antibody (IgG+IgM) Reactive( A) Nonreactive 10/08/2024 12:31 PM EDT [facility] Comment:Result suggests infe ction with [...] Final Re sult Performing Organization Address [facility]/ZIP Co de Phone Number [facility] [address] [place] [address] * Lactate Dehydrogenase, Plasma (10/08/2024 9:39 AM EDT) LDH, Plasma 238 116 - 250 U/L 10/08/2024 10:32 AM EDT [facility] Comment:Hemolyzed, result ma y be falsely increased. Blood Venous blood specimen / Unknown Venipuncture / Unknown 10/08/2024 9:39 AM EDT 10/08/2024 9:57 AM EDT Mk Pastrana MD LAB BLOOD ORDERABLES Final Re sult Performing Organization Address City/[facility]/ZIP Co de Phone Number [facility] [address] [place] [address] * Lipase, Plasma (10/08/2024 9:39 AM EDT) Pathologist [facility] Lipase, Plasma 31 19 - 63 U/L 10/08/2024 10:32 AM EDT [facility] Blood Venous blood specimen / Unknown Venipuncture / Unknown 10/08/2024 9:39 AM EDT 10/08/2024 9:57 AM EDT Mk Pastrana MD LAB BLOOD ORDERABLES Final Re sult Performing Organization Address [facility] Co de Phone Number [facility] [address] [place] [address] * Amylase, Plasma (10/08/2024 9:39 AM EDT) Pathologist [facility] Amylase 43 27 - 114 U/L 10/08/2024 10:32 AM EDT [facility] Blood Venous blood specimen / Unknown Venipuncture / Unknown 10/08/2024 9:39 AM EDT 10/08/2024 9:57 AM EDT Mk Pastrana MD LAB BLOOD ORDERABLES Final Re sult Performing Organization Address [facility] Co de Phone Number [facility] [address] [place] [address] * Comprehensive Metabolic Panel, Plasma (10/08/2024 9:39 AM EDT) [facility] Glucose, Plasma 90 74 - 99 mg/dL 10/08/2024 10:32 AM EDT [facility] BUN, Plasma 10 7 - 21 mg/dL 10/08/2024 10:32 AM EDT [facility] Creatinine, Plasma 0.65 0.60 - 1.10 mg/dL 10/08/2024 10:32 AM EDT [facility] BUN/Creatinine Ratio 15 10/08/2024 10:32 AM EDT [facility] Sodium, Plasma 142 136 - 145 mmol/L 10/08/2024 10:32 AM EDT [facility] Potassium, Plasma 4.3 3.6 - 4.9 mmol/L 10/08/2024 10:32 AM EDT [facility] Chloride, Plasma 107 97 - 107 mmol/L 10/08/2024 10:32 AM EDT [facility] CO2, Plasma 22 22 - 29 mmol/L 10/08/2024 10:32 AM EDT [facility] Anion Gap 13 6 - 16 mmol/L 10/08/2024 10:32 AM EDT [facility] Total Calcium, Plasma 9.5 8.9 - 10.2 mg/dL 10/08/2024 10:32 AM EDT [facility] Total Protein 7.5 6.3 - 7.9 g/dL 10/08/2024 10:32 AM EDT [facility] Albumin, Plasma 4.8 3.5 - 5.2 g/dL 10/08/2024 10:32 AM EDT [facility] AST, Plasma 22 10 - 35 U/L 10/08/2024 10:32 AM EDT [facility] ALT, Plasma 21 10 - 35 U/L 10/08/2024 10:32 AM EDT [facility] Alkaline Phosphatase, Plasma 104 35 - 104 U/L 10/08/2024 10:32 AM EDT [facility] Total Bilirubin, Plasma 1.0 0.2 - 1.1 mg/dL 10/08/2024 10:32 AM EDT [facility] eGFRcr 106.1 mL/min/1.7 3m*2 10/08/2024 10:32 AM EDT [facility] Comment:Reported eGFRcr in m L/min/1.73m2 is based the CKD-EPI 2020 equation that does not use a race coefficient. Blood Venous blood specimen / Unknown Venipuncture / Unknown 10/08/2024 9:39 AM EDT 10/08/2024 9:57 AM EDT us Mk Pastrana MD LAB BLOOD ORDERABLES Final Re sult [facility] [address] [place] [address] * (ABNORMAL) CBC and Differential (10/08/2024 9:39 AM EDT) WBC Count 2.43(L) 3.70 - 10.30 10*3/uL LAB HEMATOLOGY METHOD 10/08/2024 10:04 AM EDT [facility] RBC Count 3.97 3.90 - 5.20 10*6/uL LAB HEMATOLOGY METHOD 10/08/2024 10:04 AM EDT [facility] HGB 12.9 11.2 - 15.7 g/dL LAB HEMATOLOGY METHOD 10/08/2024 10:04 AM EDT [facility] HCT 39.2 34.0 - 45.0 % LAB HEMATOLOGY METHOD 10/08/2024 10:04 AM EDT [facility] Platelet Count 124(L) 155 - 369 10*3/uL LAB HEMATOLOGY METHOD 10/08/2024 10:04 AM EDT [facility] MCV 99(H) 79 - 98 fL LAB HEMATOLOGY METHOD 10/08/2024 10:04 AM EDT [facility] MCH 32.5(H) 26.0 - 32.0 pg LAB HEMATOLOGY METHOD 10/08/2024 10:04 AM EDT [facility] MCHC 32.9 30.7 - 35.5 g/dL LAB HEMATOLOGY METHOD 10/08/2024 10:04 AM EDT [facility] RDW 17.5(H) 11.5 - 14.5 % LAB HEMATOLOGY METHOD 10/08/2024 10:04 AM EDT [facility] MPV 10.7 8.8 - 12.5 fL LAB HEMATOLOGY METHOD 10/08/2024 10:04 AM EDT [facility] nRBC 0.0 <=0.0 per 100 WBCs LAB HEMATOLOGY METHOD 10/08/2024 10:04 AM EDT [facility] Differential Type Automated LAB HEMATOLOGY METHOD 10/08/2024 10:04 AM EDT [facility] Neutrophils % 38 % LAB HEMATOLOGY METHOD 10/08/2024 10:04 AM EDT [facility] Lymphocytes % 51 % LAB HEMATOLOGY METHOD 10/08/2024 10:04 AM EDT [facility] Monocytes % 8 % LAB HEMATOLOGY METHOD 10/08/2024 10:04 AM EDT [facility] Eosinophils % 1 % LAB HEMATOLOGY METHOD 10/08/2024 10:04 AM EDT [facility] Basophils % 1 % LAB HEMATOLOGY METHOD 10/08/2024 10:04 AM EDT [facility] Immature Granulocytes % 1 % LAB HEMATOLOGY METHOD 10/08/2024 10:04 AM EDT [facility] Neutrophils Absolute 0.92(LL) 1.60 - 6.10 10*3/uL LAB HEMATOLOGY METHOD 10/08/2024 10:04 AM EDT [facility] Lymphocytes Absolute 1.25 1.20 - 3.90 10*3/uL LAB HEMATOLOGY METHOD 10/08/2024 10:04 AM EDT [facility] Monocytes Absolute 0.19(L) 0.30 - 0.90 10*3/uL LAB HEMATOLOGY METHOD 10/08/2024 10:04 AM EDT [facility] Eosinophils Absolute 0.02 0.00 - 0.50 10*3/uL LAB HEMATOLOGY METHOD 10/08/2024 10:04 AM EDT [facility] Basophils Absolute 0.03 0.00 - 0.10 10*3/uL LAB HEMATOLOGY METHOD 10/08/2024 10:04 AM EDT [facility] Immature Granulocytes Absolute 0.02 0.00 - 0.06 10*3/uL LAB HEMATOLOGY METHOD 10/08/2024 10:04 AM EDT [facility] Blood Venous blood specimen / Unknown Venipuncture / Unknown 10/08/2024 9:39 AM EDT 10/08/2024 9:58 AM EDT [facility] - 10/08/2024 10:04 AM EDT Therapeutic decision making should be based on absolute values, rather than percentages. us Mk Pastrana MD LAB BLOOD ORDERABLES Final Re sult [facility] [address] [place] [address] documented in this encounter Visit Diagnoses Diagnosis CML (chronic myelocytic leukemia) (CMS/HCC)- Primary Chronic myeloid leukemia, without mention of having achieved remission Encounter for antineoplastic chemotherapy Acquired syphilis Unspecified syphilis documented in this encounter Additional Health Concerns Assessment Noted Time A Body Mass Index follow-up plan has been documented for the patient 09/11/2024 6:12 PM EDT documented as of this encounter Care Teams Greige Goods Examiner Relationship Specialty Start Date End Date Willi Frost MD [address] [place] [id number] PCP - General 06/11/24 documented as of this encounter
--- OUTSIDE RECORDS SUMMARY | 2024-10-22 12:26 | XMS_ITS | Encounter Summary ---
Author Organization [facility] Address [address] [place] [address] Care Team Providers Care Fuel House Attendant Name Role Phone Willi Frost MD Primary [...] Hematology/BMT and Cellular Therapy Program [address] [phone] 10/30/2024 8:30 AM EDT Office Visit [facility] Hematology/BMT and Cellular Therapy Program [address] [phone] Radha Morelos, ANTIQUE AUTO MUSEUM MAINTENANCE WORKER 800 [facility] [address] [place] [phone] 11/13/2024 1:00 PM EDT Office Visit [facility] [address] [place] [address] Verena Montes PA 3101 [facility] [address] [place] [address] 11/27/2024 1:30 PM EDT Clinical Support [facility] Hematology/BMT and Cellular Therapy Program [address] [phone] 11/27/2024 2:00 PM EDT Office Visit [facility] Hematology/BMT and Cellular Therapy Program [address] [phone] Mk Pastrana MD 800 [facility] [address] [place] [phone] documented as of this encounter Visit Diagnoses Not on filedocumented in this encounter Additional Health Concerns Assessment Noted Time A Body Mass Index follow-up plan has been documented for the patient 09/11/2024 6:12 PM EDT documented as of this encounter Care Teams Fuel House Attendant Relationship Specialty Start Date End Date Willi Frost MD [address] [place] [address] [address] [place] [address] PCP - General 06/11/24 documented as of this encounter
--- OUTSIDE RECORDS SUMMARY | 2024-10-22 12:26 | XMS_ITS | Encounter Summary ---
Author Organization [facility] Address [address] [place] [address] Care Team Providers Care Supervisor Data Processing Name Role Phone Willi Frost MD Primary Care Provider Encounter Details Date Type Department Care Team ([facility] Contact Info) Description 10/18/2024 Lab Requisition [facility] 800 [place] [phone] Dary Vincent, MOTOR AND GENERATOR BRUSH CUTTER 800 [facility] [address] [place] [phone] Chronic myeloid leukemia, BCR/ABL-positive, not having achieved [...] Encounters Date Type Department Care Team ([facility] Contact Info) Description 10/30/2024 8:00 AM EDT Clinical Support [facility] Hematology/BMT and Cellular Therapy Program [address] [place] [phone] 10/30/2024 8:30 AM EDT Office Visit [facility] Hematology/BMT and Cellular Therapy Program [address] [place] [phone] Radha Morelos, MOTOR AND GENERATOR BRUSH CUTTER 800 [facility] [address] [place] [phone] 11/13/2024 1:00 PM EDT Office Visit [facility] [address] [place] [address] Verena Montes PA 3101 [facility] [address] [place] [address] 11/27/2024 1:30 PM EDT Clinical Support [facility] Hematology/BMT and Cellular Therapy Program [address] [place] [phone] 11/27/2024 2:00 PM EDT Office Visit [facility] Hematology/BMT and Cellular Therapy Program [address] [place] [phone] Mk Pastrana MD 800 [facility] [address] [place] [phone] Pending Results Name Type Priority Associated Diagnoses Date /Time HLA Typing, Donor (HLATWD) Lab Routine Chronic myeloid leukemia, BCR/ABL-positive, 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) 10/16/2024 12:16 PM EDT documented as of this encounter Procedures Procedure Name Priority Date/Time Associated Diagnosis Comments BILL ONLY HLA NGS HIGH RESOLUTION TYPING BMT NMDP DONOR Routine 10/16/2024 12:16 PM EDT Chronic myeloid leukemia, BCR/ABL-positive, 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) documented in this encounter Results * BILL ONLY HLA NGS High Resolution Typing NMDP Donor (RESEARCH ONLY) (10/16/2024 12:16 PM EDT) Blood Venous blood specimen / Unknown 10/16/2024 12:16 PM EDT 10/18/2024 3:23 PM EDT us Dary Vincent MOTOR AND GENERATOR BRUSH CUTTER LAB BLOOD ORDERABLES Final Result [facility] 800 [place], [place] [address] documented in this encounter Visit Diagnoses Diagnosis Chronic myeloid leukemia, BCR/ABL-positive, 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) documented in this encounter Additional Health Concerns Assessment Noted Time A Body Mass Index follow-up plan has been documented for the patient 09/11/2024 6:12 PM EDT documented as of this encounter Care Teams Supervisor Data Processing Relationship Specialty Start Date End Date Willi Frost MD [address] [place] [address] PCP - General 06/11/24 documented as of this encounter
--- OUTSIDE RECORDS SUMMARY | 2024-10-22 12:26 | XMS_ITS | Encounter Summary ---
Author Organization [facility] Address [address] [place] [address] Care Team Providers Care Synthetic Gem Press Operator Name Role Phone Willi Frost MD Primary Care Provider [phone] Encounter Details Date Type Department Care Team ([facility] Contact Info) Description 10/04/2024 Lab Requisition [facility] 800 [place] [phone] Dary Vincent, HOME HEALTH ADMINISTRATOR 800 [facility] [address] [place] [phone] Chronic myeloid leukemia, BCR/ABL-positive, not having achieved [...] Upcoming Encounters Date Type Department Care Team ([facility] Contact Info) Description 10/30/2024 8:00 AM EDT Clinical Support [facility] Hematology/BMT and Cellular Therapy Program [address] [place] [phone] 10/30/2024 8:30 AM EDT Office Visit [facility] Hematology/BMT and Cellular Therapy Program [address] [place] [phone] Radha Morelos APRN 800 [facility] [address] [place] [phone] 11/13/2024 1:00 PM EDT Office Visit [facility] [address] [place] [address] Verena Montes PA [address] [facility] [address] [place] [address] 11/27/2024 1:30 PM EDT Clinical Support [facility] Hematology/BMT and Cellular Therapy Program [address] [place] [phone] 11/27/2024 2:00 PM EDT Office Visit [facility] Hematology/BMT and Cellular Therapy Program [address] [place] [phone] Mk Pastrana MD 800 [facility] [address] [place] [phone] documented as of this encounter Procedures [...] 12:41 PM EDT us Dary E Vincent HOME HEALTH ADMINISTRATOR LAB BLOOD ORDERABLES Final Result Performing Organization Address [facility] Co de Phone Number [facility] [address] [place] [address], * HLA Typing, Donor (HLATWD) (10/03/2024 11:46 AM EDT) HLA Lab Only (HLA Lab Only) 10/03/2024 11:46 AM EDT 10/04/2024 12:41 PM EDT Dary E Vincent HOME HEALTH ADMINISTRATOR LAB BLOOD ORDERABLES Final Result Performing Organization Address [facility] de Phone Number [facility] [address] documented in this encounter Visit Diagnoses Diagnosis Chronic myeloid leukemia, BCR/ABL-positive, 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) documented in this encounter Additional Health Concerns Assessment Noted Time A Body Mass Index follow-up plan has been documented for the patient 09/11/2024 6:12 PM EDT documented as of this encounter Care Teams Synthetic Gem Press Operator Relationship Specialty Start Date End Date Willi Frost MD [address] [place] [address] PCP - General 06/11/24 documented as of this encounter
--- OUTSIDE RECORDS SUMMARY | 2024-10-22 12:26 | XMS_ITS | Encounter Summary ---
Author Organization [facility] Address [address] [place] [address] Care Team Providers Care Zinc Plating Machine Operator Name Role Phone Willi Frost MD Primary Care Provider Encounter Details Date Type Department Care Team ([facility] Contact Info) Description 10/03/2024 Telephone [facility] Hematology/BMT and Cellular Therapy Program [address] [phone] Oralia Liu, RN [facility] Social History Tobacco Use [...] Encounters Date Type Department Care Team ([facility] Contact Info) Description 10/30/2024 8:00 AM EDT Clinical Support [facility] Hematology/BMT and Cellular Therapy Program [address] [phone] 10/30/2024 8:30 AM EDT Office Visit [facility] Hematology/BMT and Cellular Therapy Program [address] [phone] Radha Morelos, ANATOMIC PATHOLOGY MANAGER [address] [facility] [address] [place] [phone] 11/13/2024 1:00 PM EDT Office Visit [facility] [address] [place] [address] Verena Montes PA 3101 [facility] [address] [place] [address] 11/27/2024 1:30 PM EDT Clinical Support [facility] Hematology/BMT and Cellular Therapy Program [address] [place] [address] 11/27/2024 2:00 PM EDT Office Visit [facility] Hematology/BMT and Cellular Therapy Program [address] [place] [address] Mk Pastrana MD 800 [facility] [address] [place] [phone] documented as of this encounter Visit Diagnoses Not on filedocumented in this encounter Additional Health Concerns Assessment Noted Time A Body Mass Index follow-up plan has been documented for the patient 09/11/2024 6:12 PM EDT documented as of this encounter Care Teams Zinc Plating Machine Operator Relationship Specialty Start Date End Date Willi Frost MD [facility] [address] [place] [address] PCP - General 06/11/24 documented as of this encounter
--- OUTSIDE RECORDS SUMMARY | 2024-10-22 12:26 | XMS_ITS | Encounter Summary ---
Author Organization [facility] Address [address] [place] [address] Care Team Providers Care Roll Repairer Name Role Phone Willi Frost MD Primary Care Provider [phone] Encounter Details Date Type Department Care Team ([facility] Contact Info) Description 10/07/2024 Orders Only [facility] Hematology/BMT and Cellular Therapy Program [address] [place] [phone] Virgilio King, RN [facility] [...] Hematology/BMT and Cellular Therapy Program [address] [place] [phone] 10/30/2024 8:30 AM EDT Office Visit [facility] Hematology/BMT and Cellular Therapy Program 750 [facility], [address] [place] [address] [place] [address] Radha Morelos, MOTOR COACH DRIVER 800 [facility] [address] [place] [phone] 11/13/2024 1:00 PM EDT Office Visit [facility] 3101 [facility] [place] [address] Verena Montes PA [address]01 [facility] [address] [place] [address] 11/27/2024 1:30 PM EDT Clinical Support [facility] Hematology/BMT and Cellular Therapy Program [address] [phone] 11/27/2024 2:00 PM EDT Office Visit [facility] Hematology/BMT and Cellular Therapy Program [address] [phone] Mk Pastrana MD 800 [facility] [address] [place] [phone] documented as of this encounter Results * (ABNORMAL) Treponema Pallidum (Syphilis) Antibodies with Reflex to RPR and RPR Titer (Those with NOknown Syphilis) (10/08/2024 9:39 AM EDT) Syphilis Antibody (IgG+IgM) Reactive( A) Nonreactive 10/08/2024 12:31 PM EDT [facility] Comment:Result suggests infe [...] MD LAB BLOOD ORDERABLES Final Re sult [facility] 800 [place] [address] documented in this encounter Visit Diagnoses Diagnosis CML (chronic myelocytic leukemia) (CMS/HCC)- Primary Chronic myeloid leukemia, without mention of having achieved remission documented in this encounter Additional Health Concerns Assessment Noted Time A Body Mass Index follow-up plan has been documented for the patient 09/11/2024 6:12 PM EDT documented as of this encounter Care Teams Roll Repairer Relationship Specialty Start Date End Date Willi Frost MD [address] [place] [address] 1100 [place] [address] PCP - General 06/11/24 documented as of this encounter
--- OUTSIDE RECORDS SUMMARY | 2024-10-22 12:26 | XMS_ITS | Encounter Summary ---
Author Organization [facility] Address [address] [place] [address] Care Team Providers Care Land Department Head Name Role Phone Willi Frost MD Primary Care Provider [phone] Encounter Details Date Type Department Care Team ([facility] Contact Info) Description 10/10/2024 Lab Requisition [facility] 800 [place] [address] Dary Vincent, BOOK OR SCRIPT EDITOR 800 [facility] [address] [place] [phone] Acute myeloblastic leukemia, not having achieved remission [...] Upcoming Encounters Date Type Department Care Team ([facility] Contact Info) Description 10/30/2024 8:00 AM EDT Clinical Support [facility] Hematology/BMT and Cellular Therapy Program [address] [place] [address] 10/30/2024 8:30 AM EDT Office Visit [facility] Hematology/BMT and Cellular Therapy Program [address] [phone] Radha Morelos APRN 800 [facility] [address] [place] [phone] 11/13/2024 1:00 PM EDT Office Visit [facility] 3101 [facility] [place] [address] Verena Montes PA [address] [facility] [address] [place] [address] 11/27/2024 1:30 PM EDT Clinical Support [facility] Hematology/BMT and Cellular Therapy Program [address] [phone] 11/27/2024 2:00 PM EDT Office Visit [facility] Hematology/BMT and Cellular Therapy Program [address] [phone] Mk Pastrana MD 800 [facility] [address] [place] [phone] documented as of this encounter Procedures Procedure Name Priority Date/Time Associated Diagnosis Comments BILL ONLY HLA NGS HIGH RESOLUTION TYPING BMT NMDP DONOR Routine 10/07/2024 10:00 AM EDT Acute myeloblastic leukemia, 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) DONOR HLA TYPING Routine 10/07/2024 10:0 0 AM EDT Acute myeloblastic leukemia, 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) documented in this encounter Results * BILL ONLY HLA NGS High Resolution Typing NMDP Donor (RESEARCH ONLY) (10/07/2024 10:00 AM EDT) Blood Venous blood specimen / Unknown 10/07/2024 10:00 AM EDT 10/10/2024 3:24 PM EDT Dary Vincent BOOK OR SCRIPT EDITOR LAB BLOOD ORDERABLES Final Result [facility] [address] [place] [address], * HLA Typing, Donor (HLATWD) (10/07/2024 10:00 AM EDT) HLA Lab Only (HLA Lab Only) 10/07/2024 10:00 AM EDT 10/10/2024 3:24 PM EDT us Dary Vincent BOOK OR SCRIPT EDITOR LAB BLOOD ORDERABLES Final Result Performing Organization Address [facility] de Phone Number [facility] 800 [place] [address], documented in this encounter Visit Diagnoses Diagnosis Acute myeloblastic leukemia, 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
--- OUTSIDE RECORDS SUMMARY | 2024-10-22 12:26 | XMS_ITS | Encounter Summary ---
Author Organization [facility] Address [address] [place] [address] Care Team Providers Care Architectural Design Lecturer Name Role Phone Willi Frost MD Primary [...] Hematology/BMT and Cellular Therapy Program [address] [phone] 10/30/2024 8:30 AM EDT Office Visit [facility] Hematology/BMT and Cellular Therapy Program [address] [phone] Radha Morelos, HEEL ROOM SUPERVISOR 800 [facility] [address] [place] [phone] 11/13/2024 1:00 PM EDT Office Visit [facility] [address] [place] [address] Verena Montes PA 3101 [facility] [address] [place] [phone] 11/27/2024 1:30 PM EDT Clinical Support [facility] Hematology/BMT and Cellular Therapy Program [address] [phone] 11/27/2024 2:00 PM EDT Office Visit [facility] Hematology/BMT and Cellular Therapy Program [address] [phone] Mk Pastrana MD 800 [facility] [address] [place] [phone] documented as of this encounter Visit Diagnoses Not on filedocumented in this encounter Additional Health Concerns Assessment Noted Time A Body Mass Index follow-up plan has been documented for the patient 09/11/2024 6:12 PM EDT documented as of this encounter Care Teams Architectural Design Lecturer Relationship Specialty Start Date End Date Willi Frost MD [address] [place] [address] 1100 [place] [address] PCP - General 06/11/24 documented as of this encounter
--- OUTSIDE RECORDS SUMMARY | 2024-10-22 12:26 | XMS_ITS | Encounter Summary ---
Author Organization [facility] Address [address] [place] [address] Care Team Providers Care Livestock Trucker Name Role Phone Willi Frost MD Primary Care Provider Encounter Details Date Type Department Care Team ([facility] Contact Info) Description 10/08/2024 Lab Requisition [facility] Blood Bank [address] [place] [address] Moises Estrada MD [address] [place] [address] General medical exam Social History Tobacco Use [...] Hematology/BMT and Cellular Therapy Program [address] [place] [phone] 10/30/2024 8:30 AM EDT Office Visit [facility] Hematology/BMT and Cellular Therapy Program [address] [place] [address] Radha Morelos, ANALYTICAL TECHNICIAN 800 [facility] [address] [place] [phone] 11/13/2024 1:00 PM EDT Office Visit [facility] [address] [facility] [place] [address] Verena Montes PA [address] [facility] [address] [place] [address] 11/27/2024 1:30 PM EDT Clinical Support [facility] Hematology/BMT and Cellular Therapy Program [address] [place] [phone] 11/27/2024 2:00 PM EDT Office Visit [facility] Hematology/BMT and Cellular Therapy Program [address] [phone] Mk Pastrana MD 800 [facility] [address] [place] [phone] documented as of this encounter Procedures Procedure [...] ORDERAB LES Final Result BLOOD BANK [address] [place] [address], * Bill Only Isoagglutinin Titer (10/03/2024 11:45 AM EDT) Blood Bank Lab Only (Blood Bank Lab Only) 10/03/2024 11:45 AM EDT 10/08/2024 7:50 AM EDT us Moises Estrada MD LAB BLOOD BANK TEST ORDERAB LES Final Result Performing Organization Address City/State/[facility] Co de Phone Number BLOOD BANK [address] documented in this encounter Visit Diagnoses Diagnosis General medical exam Unspecified general medical examination documented in this encounter Additional Health Concerns Assessment Noted Time A Body Mass Index follow-up plan has been documented for the patient 09/11/2024 6:12 PM EDT documented as of this encounter Care Teams Livestock Trucker Relationship Specialty Start Date End Date Willi Frost MD [address] [place] [address] [address] [place] [address] PCP - General 06/11/24 documented as of this encounter
--- OUTSIDE RECORDS SUMMARY | 2024-10-22 12:26 | XMS_ITS | Data Portability ---
Author Organization [facility] AD[facility] Address [address] [place] [address] Care Team Providers Care Intern Architect Name Role Phone ABBY WILLI Primary Care Provider [phone] Assessment No assessment recorded. Plan of Treatment Reminders Order Date Submit Date Provider Last Modified By Organization Details Last Modified Time Details Appointments None recorded. Lab CBC w/ auto diff 2023 024 [facility], [address] , [place], [address], 4 16:14:22 CMP, serum or plasma 2023 024 [facility], [address] , [place], [address], 4 17:21:27 bcr/alb1, quantitativ e PCR, blood or tissue 2023 024 [facility], [address] , [place], [address], 4 15:13:41 TSH, serum or plasma 2023 024 [email or web address] 6 [facility], [address] , [place], [address], 4 09:21:29 Referral oncologist referral - 53 yo new patient with CML diagnosed in June 2023, currently on Tasigna 2023 024 [email or web address] 3 Fredrick Bateman MD, [address], [address] [place], [address], 4 14:47:33 Procedures None recorded. Surgeries None recorded. Imaging None recorded. Medication Orders oxycodone 5 mg tablet 2023 024 [facility], [address], [address], 4 14:53:21 ondansetron HCl 8 mg tablet 2023 024 [facility], [address], [address], 4 14:53:19 Tasigna 150 mg capsule 2023 SOUDAN [employer]IC[employer] SUPERVISOR Ifyc294, [address] [facility], [address], [place], [address], 4 15:02:18 nicotine 21 mg/24 hr daily transdermal patch [email or web address] [place] [address] Pharmacy 571, [address] [place], [address], 4 22:59:29 Patient TargetsNo targets recorded. Patient [...] WBC 9.6 K/uL 4.0-10 .5 Not Available [facility] ([facility] [address], [place], [address], 10/25/2023 16:14:22 10/25/19 24 10/25/2023 CBC AUTO W DIFF RBC 4.5 M/mm3 4.2-6. 4 Not Available [facility] [address], [place], [address], 10/25/2023 16:14:22 10/25/19 24 10/25/2023 CBC AUTO W DIFF HGB 12.2 gm/dL 12.5-1 6.0 low Not Available [facility] ([facility] [address], [place], [address], 10/25/2023 16:14:22 10/25/19 24 10/25/2023 CBC AUTO W DIFF HCT 39.1 % 37.0-4 7.0 Not Available [facility] ([facility] [address], [place], [address], 10/25/2023 16:14:22 10/25/19 24 10/25/2023 CBC AUTO W DIFF MCV 87.3 fL 78-100 Not Available [facility] ([facility] [address], [place], [address], 10/25/2023 16:14:22 10/25/19 24 10/25/2023 CBC AUTO W DIFF MCH 27.2 pg 27-31 Not Available [facility] [address] , [place], [address], 10/25/2023 16:14:22 10/25/19 24 10/25/2023 CBC AUTO W DIFF MCHC 31.2 g/dL 32-36 low Not Available [facility] ([facility]) [address], [place], [address], 10/25/2023 16:14:22 10/25/19 24 10/25/2023 CBC AUTO W DIFF RDW 15.6 % 11.5-1 4.0 high Not Available [facility] [address] , [place], [address], 10/25/2023 16:14:22 10/25/19 24 10/25/2023 CBC AUTO W DIFF platelet count 402 K/uL 150-45 0 Not Available [facility] [address] , [place], [address], 10/25/2023 16:14:22 10/25/19 24 10/25/2023 CBC AUTO W DIFF MPV 12.3 fL 6-9.5 high Not Available [facility] [address] [place], [address], 10/25/2023 16:14:22 10/25/19 24 10/25/2023 CBC AUTO W DIFF neutrophil% 67.6 % 43-65 high Not Available [facility] ([facility] [address], [place], [address], 10/25/2023 16:14:22 10/25/19 24 10/25/2023 CBC AUTO W DIFF lymphocyte% 21.7 % 20.5-4 5.5 Not Available [facility] [address] [place], [address], 10/25/2023 16:14:22 10/25/19 24 10/25/2023 CBC AUTO W DIFF monocyte% 3.6 % 5.5-11 .7 low Not Available [facility] [address] [place], [address], 10/25/2023 16:14:22 10/25/19 24 10/25/2023 CBC AUTO W DIFF eosinophil% 3.6 % 0.9-2. 9 high Not Available [facility] [address] [place], [address], 10/25/2023 16:14:22 10/25/19 24 10/25/2023 CBC AUTO W DIFF basophil% 2.5 % 0.2-1. 0 high Not Available [facility] [address] [place], [address], 10/25/2023 16:14:22 10/25/19 24 10/25/2023 CBC AUTO W DIFF immature granulocytes % 1.0 % 0.0-0. 8 high Not Available [facility] [address] [facility], [place], [address], 10/25/2023 16:14:22 10/25/19 24 10/25/2023 CBC AUTO W DIFF nucleated red blood cells % 0.0 % Not Available [facility] ([facility] [address] [facility], [place], [address], 10/25/2023 16:14:22 10/25/19 24 10/25/2023 CBC AUTO W DIFF neutrophil# 6.5 K/uL 2.2-4. 8 high Not Available [facility] [address] [facility], [place], [address], 10/25/2023 16:14:22 10/25/19 24 10/25/2023 CBC AUTO W DIFF lymphocyte# 2.1 cell/ mcL 1.3-2. 9 Not Available [facility] [address] [facility], [place], [address], 10/25/2023 16:14:22 10/25/19 24 10/25/2023 CBC AUTO W DIFF monocyte# 0.4 cell/ mcL 0.3-0. 8 Not Available [facility] [address] [place], [address], 10/25/2023 16:14:22 10/25/19 24 10/25/2023 CBC AUTO W DIFF eosinophil# 0.4 cell/ mcL 0-0.2 high Not Available [facility]) [address] [facility], [place], [address], 10/25/2023 16:14:22 10/25/19 24 10/25/2023 CBC AUTO W DIFF basophil# 0.2 cell/ mcL 0.0-1. 0 Not Available [facility] [address], [place], [address], 10/25/2023 16:14:22 10/25/19 24 10/25/2023 CBC AUTO W DIFF immature gramulocytes # 0.10 K/uL Not Available [facility] ([facility] [address] , [place], [address], 10/25/2023 16:14:22 10/25/19 24 10/25/2023 CBC AUTO W DIFF nucleated red blood cells # 0.00 K/uL Not Available [facility] ([facility] [address] , [place], [address], 10/25/2023 16:14:22 10/25/19 24 10/25/2023 CBC AUTO W DIFF manual differential NO Not Available [facility] [address] , [place], [address], 10/25/2023 16:14:22 10/25/19 24 10/25/2023 COMP METAB OLIC PANEL sodium 141 mmol/ L 136-14 5 Not Available [facility] [address] , [place], [address], 10/25/2023 17:21:27 10/25/19 24 10/25/2023 COMP METAB OLIC PANEL potassium 4.3 mmol/ L 3.6-5. 0 Not Available [facility] ([facility]) [address] , [place], [address], 10/25/2023 17:21:27 10/25/19 24 10/25/2023 COMP METAB OLIC PANEL chloride 105 mmol/ L 98-107 Not Available [facility] [address] , [place], [address], 10/25/2023 17:21:27 10/25/19 24 10/25/2023 COMP METAB OLIC PANEL carbon dioxide 25.8 mmol/ L 21.0-3 2.0 Not Available [facility] [address] , [place], [address], 10/25/2023 17:21:27 10/25/19 24 10/25/2023 COMP METAB OLIC PANEL anion gap 14.5 Not Available [facility] ([facility] [address] , [place], [address], 10/25/2023 17:21:27 10/25/19 24 10/25/2023 COMP METAB OLIC PANEL glucose 83 mg/dL 70-120 Not Available [facility]) [address] , [place], [address], 10/25/2023 17:21:27 10/25/19 24 10/25/2023 COMP METAB OLIC PANEL BUN 14 mg/dL 7-18 Not Available [facility] [address] , [place], [address], 10/25/2023 17:21:27 10/25/19 24 10/25/2023 COMP METAB OLIC PANEL creatinine 0.9 mg/dL 0.6-1. 3 Not Available [facility]) [address] , [place], [address], 10/25/2023 17:21:27 10/25/19 24 10/25/2023 COMP METAB OLIC PANEL glomerular filtration rate >60 mlper min 60- Not Available [facility]) [address] , [place], [address], 10/25/2023 17:21:27 10/25/19 24 10/25/2023 COMP METAB OLIC PANEL total protein 6.9 g/dL 6.4-8. 2 Not Available [facility] [address], [place], [address], 10/25/2023 17:21:27 10/25/19 24 10/25/2023 COMP METAB OLIC PANEL albumin 3.7 g/dL 3.4-5. 0 Not Available [facility] [address], [place], [address], 10/25/2023 17:21:27 10/25/19 24 10/25/2023 COMP METAB OLIC PANEL globulin 3.2 Not Available [facility] [address], [place], [address], 10/25/2023 17:21:27 10/25/19 24 10/25/2023 COMP METAB OLIC PANEL alb/glob ratio 1.2 0.7-2 Not Available [facility] ([facility] [address], [place], [address], 10/25/2023 17:21:27 10/25/19 24 10/25/2023 COMP METAB OLIC PANEL calcium 8.7 mg/dL 8.5-10 .5 Not Available [facility] ([facility]) [address], [place], [address], 10/25/2023 17:21:27 10/25/19 24 10/25/2023 COMP METAB OLIC PANEL bilirubin total 0.70 mg/dL 0.10-1 .00 Not Available [facility] ([facility] [address], [place], [address], 10/25/2023 17:21:27 10/25/19 24 10/25/2023 COMP METAB OLIC PANEL AST (SGOT) 19 U/L 0-37 Not Available [facility] ([facility] [address] , [place], [address], 10/25/2023 17:21:27 10/25/19 24 10/25/2023 COMP METAB OLIC PANEL ALT (SGPT) 50 U/L 0-65 Not Available [facility] ([facility]) [address], [place], [address], 10/25/2023 17:21:27 10/25/19 24 10/25/2023 COMP METAB OLIC PANEL alk phosphatase 118 U/L 46-116 high Not Available [facility] ([facility]) [address], [place], [address], 10/25/2023 17:21:27 10/25/19 24 10/25/2023 THYRO ID STIMU LATIN G HORMO NE thyroid stim hormone 2.45 mIU/L 0.36-3 .74 Not Available [facility] ([facility]) [address], [place], [address], 10/25/2023 17:22:32 10/25/19 24 11/01/2023 BCR-A BL1 [...] e see cteri stics deter mined by deCarta rp. It has not been clear ed or appro mago by the Food and Drug Admin istra tion. Not Available [facility]) [address] [facility], [place], [address], 11/01/2023 15:12:50 10/25/19 24 11/01/2023 BCR-A BL1 RT-PC R interpretati on: Positi ve delta POSIT JEANNIE for the BCR-A BL1 e13a2 (b2a2 , p210) , e14a2 (b3a2 , p210) and e1a2 (p190 ) fusio n trans cript s. Not Available [facility]) [address] [facility], [place], [address], 11/01/2023 15:12:50 10/25/19 24 11/01/2023 BCR-A BL1 RT-PC R b2a2 transcript 26.978 8 % Not Available [facility]) [address] [facility], [place], [address], 11/01/2023 15:12:50 10/25/19 24 11/01/2023 BCR-A BL1 RT-PC R b3a2 transcript 17.658 1 % Not Available [facility]) [address] [facility], [place], [address], 11/01/2023 15:12:50 10/25/19 24 11/01/2023 BCR-A BL1 RT-PC R e1a2 transcript 0.0403 % Not Available [facility] ([facility] [address] [facility], [place], [address], 11/01/2023 15:12:50 10/25/19 24 11/01/2023 BCR-A BL1 RT-PC R pdf image . Perfo rmed at: [facility] [place] [address], [place] [address] Lab Direc tor: Finn Arguello [facility] , Phone : [phone] Perfo rmed at: [facility] [place] [address] , [place] [address] Lab Direc tor: Finn Slaterchelsie [facility] , Phone : [phone] Not Available [facility] ([facility]) [address], [place], [address], 11/01/2023 15:12:50 10/25/19 24 11/01/2023 BCR-A BL1 [...] matio n as indic ated. Not Available [facility] ([facility]) [address], [place], [address], 11/01/2023 15:12:50 10/25/19 24 11/01/2023 BCR-A BL1 RT-PC R director review: Stephanie Duque, PhD, FAC Direc tor, [facility] [place] [address] [phone] Not Available [facility]) [address], [place], [address], 11/01/2023 15:12:50 Result Notes None recorded. Procedures Surgical History Date Name Laterality Status Provider Name and Address Organization Details Recorded Time graft of skin to skin completed Sonia Evans [place] - [facility] [place] 10/10/2023 13:32:25 ligation of fallopian tube completed Sonia Robertsson [place] - [facility] [place] 10/10/2023 13:32:31 Imaging Results None recorded. Procedure [...] Updated DateTime 4 165.1 cm 19.6 kg/m2 82838.1 1 g 97.9 [degF] 96 % 96 % 91 /min 138/81 mm[Hg] Sonia Evans [facility] [place] 4 13:36:43 Date Recorded Body height Body mass index (BMI) Body weight Body temperature Oxygen saturation Oxygen saturation in Arterial blood by Pulse oximetry Heart rate Systolic And Diastolic Provider Name and Address Organization Details Last Updated DateTime 4 165.1 cm 20.3 kg/m2 87071.5 5 g 97.7 [degF] 96 % 96 % 82 /min 124/80 mm[Hg] Lisy Pereira [facility] [place] 4 14:27:54 Date Recorded Body height Body mass index (BMI) Body weight Body temperature Oxygen saturation Oxygen saturation in Arterial blood by Pulse oximetry Heart rate Systolic And Diastolic Provider Name and Address Organization Details Last Updated DateTime 4 165.1 cm 20.8 kg/m2 04947.0 5 g 98 [degF] 100 % 100 % 89 /min 128/84 mm[Hg] Lori Napoles [facility] [place] 4 13:32:59 Social History Question Answer Notes LastModified by Organizat ion Details LastModified Time Tobacco Smoking Status Current Every Day Smoker 4-5 cigs a day Lisy Pereira [facility] & [place] 10/25/2023 14:25:32 What Is Your Level Of Caffeine Consumption? Heavy Information not available 10/10/2023 What Is Your Current Pack Years? 30ormorepack years [email or web address] Information not available 10/10/2023 At What Age Did You Start Smoking Tobacco? 10 [email or web address] Information not available 10/10/2023 How Much Tobacco Do You Smoke? 1 PPD [email or web address] Information not available 10/10/2023 Has Tobacco Cessation Counseling Been Provided? No [email or web address] Information not available 10/10/2023 How Many Years Have You Smoked Tobacco? 48 [email or web address] Information not available 10/10/2023 Sex: Unknown Functional Status Question Answer Note LastModified by Organizat ion Details LastModified Time Do you use any illicit or recreational drugs? No Information not available 10/25/2023 Do you or have you ever used any other forms of tobacco or nicotine? No Information not available 10/10/2023 What is your level of alcohol consumption? None Information not available 10/10/2023 Mental Status None [...] SNOMED-CT Code Diagnosis ICD10 Code Diagnosis Note [id number] Willi Frost MD [facility] [address] [place] [address] 10/10/2023 13:08:23 10/10/2023 13:55:46 Chronic myeloid leukemia [id number] C92.Z0 Currently on Tasigna. I will refer her to Dr. 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 Script to be sent in for the 21 mg daily patch which she can use for a month or 2 if needed. She will call when she is ready to taper down to the 14 mg daily [id number] Fredrick Bateman MD [facility] [address] [facility] [address] [place] [address] 10/25/2023 14:03:28 10/25/2023 15:23:53 Chronic myeloid leukemia [id number] C92.10 Patient was diagnosed in [place] with chronic myeloid leukemia in early 2023. [...] fade in frequency and likely improve Splenomegaly [id number] R1 6.1 initially diagnosed with CML and found to have massive splenomega ly. On exam on October 25, 2023 spleen is normal in size. Mild left upper quadrant discomfort . Likely from capsular stretch. Continue with as needed pain medication . Discussed weaning of pain medication as proceeding further on oral therapy. Pain due t o neoplastic disease [id number] 9102 G89.3 Mild left upper quadrant discomfort . Likely from capsular stretch. Continue with as needed pain medication . Discussed weaning of pain medication as proceeding further on oral therapy. Nausea [id number] R11.0 as needed zofran prescribed . [id number] Willi Frost MD [facility] [address] [place] [address] 01/15/2024 13:26:12 01/15/2024 14:04:24 Intermittent pain [id number] R52 I am unsure how much of this is related to her cancer or cancer treatment. I explained to her she could call and speak with a physician online about getting a medical marijuana card which might be helpful for her or simply using THC gummies. 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 This was originally written by Dr. Bateman who patient is no longer seeing. I can resume writing this if need be. Chronic my eloid leukemia [id number] C92.Z0 Currently on Tasigna and seeing Dr. Armendariz in [place]. Depending on her upcoming visit with him she may want to see a different oncologist . If so she will need to provide the name of 1 or we will simply refer her to [facility]. Health Concerns Section Related Observation LastModified by Organization Detsarah ls LastModified Time None Recorded Concern Status LastModified by Organization Details LastModified Time None Recorded Advance Directives Directive None Recorded Payers Insurance Date Sequence Insurance Name Policy Number Policy Galloway Covered Member ID Galloway Member ID Guarantor Name 07/13/2024 1 [facility] (MEDICAID REPLACEMENT - HMO) Amita Angel [id number] Amita Ortiz Notes Date Note Type Note Provider Name and Address Organization Details Recorded Time 10/10/2023 text/html 53 yo WF present s to establish care. Just moved here from [place]. Living with daughter who accompanies her today. Has a h/o CML, diagnosed in june 2023, currently being treated with Tasigna. Needs a local oncologist.Currentl y, retired from [employer]-trying to get disability, smoker-1/2-1 ppd, non-drinker. He is also interested in quitting smoking and asked for a prescription for a nicotine patch which she said she was wearing in the hospital and doing well with. Willi Frost MD [address] [facility], [place], [address], [facility] [place] [facility] [place] 10/10/2023 23:00:54 10/25/2023 text/html 53 yo F Presents for evaluation chronic myeloid leukemia. Patient was diagnosed in [place] with chronic myeloid leukemia in early 2023. [...] capsules taken p.o. b.i.d. for newly diagnosed Garza chromosome positive CML. Patient recently relocated to the area. Discussed with patient continuation of current dosing of Tasigna. Will follow-up labs today. Patient reports still having left upper quadrant discomfort due to prior splenomegaly. This is not uncommon following massive splenomegaly in the setting of diagnosis. Usually will fade in frequency and likely improve Fredrick Bateman MD [address], [place], [address], [facility] - [facility] [place] 10/25/2023 15:20:25 01/15/2024 text/html Pt presents for F/U. Has seen Dr. Armendariz-oncologist in [facility] . Apparently got upset with Dr. Bateman's [...] sounds like nicotine pouches. Willi Frost MD [address], [place], [address], [facility] - [facility] [place] 01/16/2024 13:10:37 OBGyn Episode No OBEpisode recorded.
--- OUTSIDE RECORDS SUMMARY | 2024-10-22 12:26 | XMS_ITS | Encounter Summary ---
Author Organization [facility] Address [address] [place] [address] Care Team Providers Care Honey Grader And Blender Name Role Phone Willi Frost MD Primary Care Provider Encounter Details Date Type Department Care Team (Late Contact Info) Description 10/14/2024 Lab Requisition [facility] A Blood Bank 800 [place] [address] Moises Estrada MD 800 [place] [address] General medical exam Social History Tobacco Use [...] Hematology/BMT and Cellular Therapy Program [address] [place] [phone] 10/30/2024 8:30 AM EDT Office Visit [facility] Hematology/BMT and Cellular Therapy Program [address] [place] [address] Radha Morelos, GRINDER SET UP OPERATOR JIG 800 [facility] [address] [place] [phone] 11/13/2024 1:00 PM EDT Office Visit [facility] [address] [facility] [place] [address] Verena Montes PA [address] [facility] [address] [place] [address] 11/27/2024 1:30 PM EDT Clinical Support [facility] Hematology/BMT and Cellular Therapy Program [address] [place] [phone] 11/27/2024 2:00 PM EDT Office Visit [facility] Hematology/BMT and Cellular Therapy Program [address] [phone] Mk Pastrana MD 800 [facility] [address] [place] [phone] documented as of this encounter Procedures Procedure [...] ORDERAB LES Final Result BLOOD BANK 800 [place] [address], * Bill Only Isoagglutinin Titer (10/07/2024 10:00 AM EDT) Blood Bank Lab Only (Blood Bank Lab Only) 10/07/2024 10:00 AM EDT 10/14/2024 7:26 AM EDT us Moises Estrada MD LAB BLOOD BANK TEST ORDERAB LES Final Result Performing Organization Address City/State/[facility] Co de Phone Number BLOOD BANK [address] documented in this encounter Visit Diagnoses Diagnosis General medical exam Unspecified general medical examination documented in this encounter Additional Health Concerns Assessment Noted Time A Body Mass Index follow-up plan has been documented for the patient 09/11/2024 6:12 PM EDT documented as of this encounter Care Teams Honey Grader And Blender Relationship Specialty Start Date End Date Willi Frost MD [address] [place] [address] 1100 [place] [address] PCP - General 06/11/24 documented as of this encounter
--- OUTSIDE RECORDS SUMMARY | 2024-10-22 12:27 | XMS_ITS | Encounter Summary ---
Author Organization [facility] Address [address] [place] [address] Care Team Providers Care Maintenance Job Titles Name Role Phone Pcp, No Primary Care Provider Willi Mckeon MD Primary Care Provider Encounter Details Date Type Department Care Team (Late Contact Info) Description 2024 Lab Requisition [facility] H Lab 800 [place] [phone] Mk Pastrana MD 800 [facility] [address] [place] [phone] Chronic myeloid leukemia, BCR/ABL-positive, not having [...] CC Hematology/BMT and Cellular Therapy Program 750 [facility] [place] [address] 10/30/2024 8:30 AM EDT Office Visit [facility] Hematology/BMT and Cellular Therapy Program [address] [phone] Radha Morelos APRN 800 [facility] [address] [phone] 11/13/2024 1:00 PM EDT Office Visit [facility] 3101 [place] [address] Verena Montes PA 3101 [facility] [address] [place] [address] 11/27/2024 1:30 PM EDT Clinical Support [facility] Hematology/BMT and Cellular Therapy Program [address] [place] [phone] 11/27/2024 2:00 PM EDT Office Visit [facility] Hematology/BMT and Cellular Therapy Program [address] [phone] Mk Pastrana MD 800 [facility] [address] [phone] documented as of this encounter Procedures Procedure Name Priority Date/Time Associated Diagnosis Comments BONE MARROW EXAM CONSULT Routine 2024 12:48 PM EST Chronic myeloid leukemia, BCR/ABL-positive, 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) documented in this encounter Results * Bone marrow exam consult (2024 12:48 PM EST) Case Report Bone Marrow Case: [id number] Authorizing Provider: Mk Pastrana MD Collected: 2024 1246 Ordering Location: [facility] Lab Received: 2024 1248 Pathologist: Stweart Lombardi MD Specimen: Bone Marrow Aspirate, [id number] 05/06/2024 10:30 AM [facility] Final Diagnosis BONE MARROW ASPIRATE AND BIOPSY (CASE COLLECTED 02/13/2024): - VARIABLY HYPOCELLULAR BONE MARROW WITH DECREASED TRILINEAGE PRECURSORS (MOST NOTABLY MYELOID PRECURSORS), PATCHY 1+ RETICULIN FIBROSIS, MILD MEGAKARYOCYTIC ATYPIA, AND NO INCREASE IN BLASTS. 05/06/2024 10:30 AM [facility] at 1030 EST Comment The patient has a history of chronic myeloid leukemia, and accompanying karyotype confirms the presence of the Congers chromosome without other abnormality. PCR was negative for mutations within the BCR-ABL1 kinase domain. 05/06/2024 10:30 AM [facility] Clinical Information C92.10 - Chronic myeloid leukemia, BCR/ABL-positive, not having achieved remission [ICD-10-CM] 05/06/2024 10:30 AM [facility] Bone Marrow Differential BONE MARROW DIFFERENTIAL: 200 cells Normal Patient Neutrophils 15-50 25 Metamyelocytes 4-19 5 Myelocytes 1-18 8 Promyelocytes 1-8 1 Blasts 0-2 0 Monocytes 0-5 3 Erythroid 16-38 45 Lymphocytes 3-24 11 Eosinophils 0-6 0 Basophils 0-2 0 Plasma cells 0-4 2 Other 05/06/2024 10:30 AM [facility] Aspirate Smear Aspirate smears are aspicular and paucicellular. Morphologic evaluation and differential is performed on touch preparation. 05/06/2024 10:30 AM [facility] Touch Imprints A touch preparation shows trilineage precursors. Myeloid precursors show complete maturation with no increase in blasts. Erythroid precursors show mild megaloblastoid change. Megakaryocytes are atypical, with some small forms having abnormal separation of nuclear lobes. 05/06/2024 10:30 AM [facility] Core Biopsy Core biopsy sections show patchy marrow cellularity (overall approximately 20%) with scattered foci of fibrosis. Cellular areas feature normally distributed trilineage precursors and cellular composition similar to touch preparation. No lymphoid aggregates are seen. A CD34 immunostain highlights microvasculature with no definite increase in blasts. 05/06/2024 10:30 AM [facility] Clot Section Clot sections are aspicular. They consist of predominantly blood. 05/06/2024 10:30 AM [facility] Flow Cytometry Interpretation Per report, flow cytometric analysis shows a hemodilute specimen with no immunophenotypic abnormalities. [id number] blasts constitute 0.1% of total events. 05/06/2024 10:30 AM [facility] CYTOGENETICS/MOL ECULAR INTERPRETATION Per report, conventional cytogenetic studies showed an abnormal female karyotype with the Congers chromosome in 100% of analyzed metaphase cells. There are no other karyotypic abnormalities. Per report, molecular analysis showed no mutations within the BCR-ABL1 kinase domain. 05/06/2024 10:30 AM [facility] Gross Description A. [id number] Received along with a corresponding pathology report from [facility]ology [facility] Cytology Laboratory are 10 slides labeled outside case: [id number] collected on 02/13/2024. 05/06/2024 10:30 AM [facility] Note: A resident was involved in the service. I attest I examined the relevant preparations for the specimens and confirmed the diagnosis or interpretation. 05/06/2024 10:30 AM [facility] Bone Marrow Specimen from bone marrow obtained by aspiration / Unknown 2024 12:48 PM EST 2024 12:48 PM EST us Mk Pastrana MD LAB PATHOLOGY ORDERABLES Nani smith Result [facility] 800 [place] [address] documented in this encounter Visit Diagnoses Diagnosis Chronic myeloid leukemia, BCR/ABL-positive, 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) documented in this encounter Care Teams Maintenance Job Titles Relationship Specialty Start Date End Date Pcp, No 800 [place] [address] PCP - General Family Medicine 04/30/24 06/10/24 Willi Frost MD [address] [place], [place] [phone] PCP - General 06/11/24 documented as of this encounter
--- OUTSIDE RECORDS SUMMARY | 2024-10-22 12:27 | XMS_ITS | Encounter Summary ---
Author Organization [facility] Address [address] [place] [address] Care Team Providers Care Blankmaker Name Role Phone Willi Frost MD Primary [...] Hematology/BMT and Cellular Therapy Program [address] [phone] 10/30/2024 8:30 AM EDT Office Visit [facility] Hematology/BMT and Cellular Therapy Program [address] [phone] Radha Morelos, MICROSOFT OFFICE INSTRUCTOR 800 [facility] [address] [place] [phone] 11/13/2024 1:00 PM EDT Office Visit [facility] [address]01 [place] [address] Verena Montes PA [address] [facility] [address] [place] [address] 11/27/2024 1:30 PM EDT Clinical Support [facility] Hematology/BMT and Cellular Therapy Program [address] [phone] 11/27/2024 2:00 PM EDT Office Visit [facility] Hematology/BMT and Cellular Therapy Program [address] [phone] Mk Pastrana MD 800 [facility] [address] [place] [phone] documented as of this encounter Visit Diagnoses Not on filedocumented in this encounter Additional Health Concerns Assessment Noted Time A Body Mass Index follow-up plan has been documented for the patient 09/11/2024 6:12 PM EDT documented as of this encounter Care Teams Blankmaker Relationship Specialty Start Date End Date Willi Frost MD [address] [place] [address] 1100 [place] [address] PCP - General 06/11/24 documented as of this encounter
--- OUTSIDE RECORDS SUMMARY | 2024-10-22 12:27 | XMS_ITS | Encounter Summary ---
Author Organization [facility] Address [address] [place] [address] Care Team Providers Care Horse Stud Worker Name Role Phone Willi Frost MD Primary Care Provider Encounter Details Date Type Department Care Team ([facility] Contact Info) Description 09/10/2024 Telephone [facility] Hematology/BMT and Cellular Therapy Program [address] [place] [address] Tg Rodgers RN [facility] Social History Tobacco [...] Hematology/BMT and Cellular Therapy Program [address] [phone] 10/30/2024 8:30 AM EDT Office Visit [facility] Hematology/BMT and Cellular Therapy Program [address] [place] [phone] Radha Morelos, RIGGING SLINGER 800 [facility] [address] [place] [phone] 11/13/2024 1:00 PM EDT Office Visit [facility] 3101 [place] [address] Verena Montes PA 3101 [facility] 100 [place] [address] 11/27/2024 1:30 PM EDT Clinical Support [facility] Hematology/BMT and Cellular Therapy Program [address] [place] [phone] 11/27/2024 2:00 PM EDT Office Visit [facility] Hematology/BMT and Cellular Therapy Program [address] [place] [phone] Mk Pastrana MD 800 [facility] [address] [place] [phone] documented as of this encounter Visit Diagnoses Not on filedocumented in this encounter Additional Health Concerns Assessment Noted Time A Body Mass Index follow-up plan has been documented for the patient 08/28/2024 5:28 PM EDT documented as of this encounter Care Teams Horse Stud Worker Relationship Specialty Start Date End Date Willi Frost MD [facility] [address] [facility] [address] [place] [address] PCP - General 06/11/24 documented as of this encounter
--- OUTSIDE RECORDS SUMMARY | 2024-10-22 12:27 | XMS_ITS | Encounter Summary ---
Author Organization [facility] Address [address] [id number] Care Team Providers Care School Counsellor Name Role Phone Willi Frost MD Primary Care Provider Reason for Visit * Reason Comments Social Work/navigation Follow-up Encounter Details Date Type Department Care Team ([facility] Contact Info) Description 09/19/2024 Social Work Psych Oncology 800 [place] [address] [place] [address] Social History Tobacco Use Types Packs/Day Years [...] Call Disease Status: Established Patient Clinic Location: [facility] Disease Type: Leukemia Services Provided: Financial Support, Financial Toxicity Intervention Level: 2 Units (1 unit = 15 minutes): 2 Narrative: Patient contacted [facility] via phone regarding POI needed for LLS funds. [facility]10 but [facility] was unable to connect with patient. She says she along with her daughter will bring it work-up appts on 09/24 and 09/25 and this will be sent to S. FIELD RADIO TECHNICIAN also brought up psychosocial interview on 09/25 and how elly through [facility] can be pursued now that we are closer to transplant time. Patient was advised for she along with her daughter should try to come prepared with ideas of what [facility] elly could be must useful for as this can be used towards to financial strain that as she moves forward with transplant. Application will look for idea of lists v. expenses currently in the household. Patient was grateful and appreciative of conversation. FIELD RADIO TECHNICIAN to remain available for supportive needs as they arise. documented in this encounter Plan of Treatment Upcoming Encounters Date Type Department Care Team ([facility] st Contact Info) Description 10/30/2024 8:00 AM EDT Clinical Support [facility] Hematology/BMT and Cellular Therapy Program [address] [place] [phone] 10/30/2024 8:30 AM EDT Office Visit [facility] Hematology/BMT and Cellular Therapy Program [address] [place] [phone] Radha Morelos, MARCY 800 [facility] [address] [place] [phone] 11/13/2024 1:00 PM EDT Office Visit [facility] 3101 [place] [address] Verena Montes PA 3101 [facility] [address] [place] [phone] 11/27/2024 1:30 PM EDT Clinical Support [facility] Hematology/BMT and Cellular Therapy Program [address] [phone] 11/27/2024 2:00 PM EDT Office Visit [facility] Hematology/BMT and Cellular Therapy Program [address] [place] [address] [place] [address] Mk Pastrana MD 800 [facility] [address] [place] [address] documented as of this encounter Visit Diagnoses Not on filedocumented in this encounter Additional Health Concerns Assessment Noted Time A Body Mass Index follow-up plan has been documented for the patient 09/11/2024 6:12 PM EDT documented as of this encounter Care Teams School Counsellor Relationship Specialty Start Date End Date Willi Frost MD [address] [place] [address] [address] [place] [address] PCP - General 06/11/24 documented as of this encounter
--- OUTSIDE RECORDS SUMMARY | 2024-10-22 12:27 | XMS_ITS | Encounter Summary ---
Author Organization [facility] Address [address] [place] [address] Care Team Providers Care Manager Research Development Name Role Phone Willi Frost MD Primary [...] Hematology/BMT and Cellular Therapy Program [address] [phone] 10/30/2024 8:30 AM EDT Office Visit [facility] Hematology/BMT and Cellular Therapy Program [address] [phone] Radha Morelos, FARM CONTRACTOR 800 [facility] [address] [place] [phone] 11/13/2024 1:00 PM EDT Office Visit [facility] [address]01 [place] [address] Verena Montes PA 3101 [facility] [address] [place] [address] 11/27/2024 1:30 PM EDT Clinical Support [facility] Hematology/BMT and Cellular Therapy Program [address] [place] [address] 11/27/2024 2:00 PM EDT Office Visit [facility] CC Hematology/BMT and Cellular Therapy Program [address] [phone] Mk Pastrana MD 800 [facility] [address] [place] [phone] documented as of this encounter Visit Diagnoses Not on filedocumented in this encounter Additional Health Concerns Assessment Noted Time A Body Mass Index follow-up plan has been documented for the patient 09/11/2024 6:12 PM EDT documented as of this encounter Care Teams Manager Research Development Relationship Specialty Start Date End Date Willi Frost MD [address] [place] [address] [address] [place] [address] PCP - General 06/11/24 documented as of this encounter
--- OUTSIDE RECORDS SUMMARY | 2024-10-22 12:27 | XMS_ITS | Encounter Summary ---
Author Organization [facility] Address [address] [id number] Care Team Providers Care Acid Bath Mixer Name Role Phone Willi Frost MD Primary Care Provider Reason for Visit * Reason Comments Transplant Evaluation Encounter Details Date Type Department Care Team ([facility] st Contact Info) Description 09/25/2024 Social Work Psych Oncology 800 [place] [phone] Michelle Gamez LCSW [place] [phone] Social History Tobacco Use Types Packs/Day Years [...] Visit Disease Status: Established Patient Clinic Location: [facility] Disease Type: Leukemia Disease Type Other: CML Services Provided: Financial Support, Financial Toxicity, Psychosocial Monitoring, Resource Navigation, BMT / Car-T Psychosocial Assessment Intervention Level: 3 Units (1 unit = 15 minutes): 2 Narrative: LIFE SCIENCES DIRECTOR met with patient along with her daughter and family friend with intention to complete P/S as part of work-up for allogenic stem-cell transplant. Patient's chest x-ray ran considerablyover so full assessment was not completed on this date. LIFE SCIENCES DIRECTOR and patient's family met for 20 minutes [...] due to vehicle, override will be requested. LIFE SCIENCES DIRECTOR explored if daughter could transport patient if necessary. Daughter shared thatwith her work schedule she could drop off her mother but pick-up would be after she gets of work ifnecessary. Further discussion of logistics will be discussed once P/S is rescheduled. Patient was also provided with [facility] patient grants work-sheet to complete and bring back on 10/03. She was also informed that Urgent Need Funds were applied for on this date and POI was provided. LIFE SCIENCES DIRECTOR will upload via [employer] portal. LIFE SCIENCES DIRECTOR to remain available for supportive needs as they arise. documented in this encounter Plan of Treatment Upcoming Encounters Date Type Department Care Team ([facility] Contact Info) Description 10/30/2024 8:00 AM EDT Clinical Support [facility] Hematology/BMT and Cellular Therapy Program [address] [phone] 10/30/2024 8:30 AM EDT Office Visit [facility] Hematology/BMT and Cellular Therapy Program [address] [phone] Radha Morelos, HOTEL OR MOTEL MANAGER 800 [facility] [address] [place] [phone] 11/13/2024 1:00 PM EDT Office Visit [facility] [address]01 [place] [phone] Verena Montes PA 3101 [facility] [address] [place] [address] 11/27/2024 1:30 PM EDT Clinical Support [facility] Hematology/BMT and Cellular Therapy Program [address] [phone] 11/27/2024 2:00 PM EDT Office Visit [facility] Hematology/BMT and Cellular Therapy Program [address] [phone] Mk Pastrana MD 800 [facility] [address] [place] [phone] documented as of this encounter Visit Diagnoses Not on filedocumented in this encounter Additional Health Concerns Assessment Noted Time A Body Mass Index follow-up plan has been documented for the patient 09/11/2024 6:12 PM EDT documented as of this encounter Care Teams Acid Bath Mixer Relationship Specialty Start Date End Date Willi Frost MD [address] [place] [address] 1100 [place] [address] PCP - General 06/11/24 documented as of this encounter
--- OUTSIDE RECORDS SUMMARY | 2024-10-22 12:27 | XMS_ITS | Encounter Summary ---
Author Organization [facility] Address [address] [place] [address] Care Team Providers Care Ship Fastener Name Role Phone Willi Frost MD Primary Care Provider Reason for Visit * Reason Onset Date Comments new start 10/08/2024 Encounter Details Date Type Department Care Team (Late st Contact Info) Description 10/08/2024 Telephone [facility] [address] [place] [address] Erwin Valentin, PharmD new start [...] 0.92, therapy changing to address No DDI [facility] Specialty Medication Initial Care Plan Amita Ortiz is a 54 y.o. female assessed [...] Medication specific education provided: Patient educated by [facility] for Medication Regimen: Iclusig 45mg PO [...] P atient and/or caregiver encouraged to contact [facility] with any questions or concerns. Monitoring [...] in regards to specialty medication Medication Regimen: [id number] PO QD for diagnosis of CML. Patient [...] Problem List Diagnosis CML (chronic myelocytic leukemia) ([facility]) Second hand smoke exposure documented in this encounter Plan of Treatment Upcoming Encounters Date Type Department Care Team ([facility] st Contact Info) Description 10/30/2024 8:00 AM EDT Clinical Support [facility] Hematology/BMT and Cellular Therapy Program [address] [place] [address] 10/30/2024 8:30 AM EDT Office Visit [facility] Hematology/BMT and Cellular Therapy Program 750 [facility], [address] [place] [address] [place] [phone] Radha Morelos, MARCY 800 [facility] [address] [place] [phone] 11/13/2024 1:00 PM EDT Office Visit [facility] 3101 [facility] [place] [address] Verena Montes PA [address] [facility] [address] [place] [address] 11/27/2024 1:30 PM EDT Clinical Support [facility] Hematology/BMT and Cellular Therapy Program [address] [place] [phone] 11/27/2024 2:00 PM EDT Office Visit [facility] Hematology/BMT and Cellular Therapy Program [address] [phone] Mk Pastrana MD 800 [facility] [address] [place] [phone] documented as of this encounter Visit Diagnoses Not on filedocumented in this encounter Additional Health Concerns Assessment Noted Time A Body Mass Index follow-up plan has been documented for the patient 09/11/2024 6:12 PM EDT documented as of this encounter Care Teams Ship Fastener Relationship Specialty Start Date End Date Willi Frost MD [facility] [address] [facility] [address] [place] [address] PCP - General 06/11/24 documented as of this encounter
--- OUTSIDE RECORDS SUMMARY | 2024-10-22 12:27 | XMS_ITS ---
Author Organization [facility] Address [address] [place] [address] Care Team Providers Care Summer Child Caregiver Name Role Phone Willi Frost MD Primary Care Provider Active Problems Problem Noted Date Diagnosed Date Second hand smoke exposure 10/08/2024 CML (chronic myelocytic leukemia) 09/10/2024 Current Treatment and Therapy Plans HEM/BMT Blood Administration for Outpatient* Plan Start Date:09/10/2024 Plan Provider:Bhavana Bella APRN Linked Problems CML (chronic myelocytic leuk emia) ([facility]) Treatment Medications No medications scheduled. Past Treatment and Therapy Plans No past plan information found. 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
--- OUTSIDE RECORDS SUMMARY | 2024-10-22 12:27 | XMS_ITS | Encounter Summary ---
Author Organization [facility] Address [address] [place] [address] Care Team Providers Care Game Technician Name Role Phone Willi Frost MD Primary Care Provider + [phone] Reason for Referral * Imaging (Routine) - Closed Specialty Diagnoses / Procedures Referred By Contac t Referred To Contact Cardiology Diagnoses CML (chronic myelocytic leukemia) (CMS/HCC) Procedures Echo, Adult Transthoracic Complete Mk Pastrana MD [address] [facility] [address] [place] [address] Phone: tel: fax: Referral ID Status Reason Start Date Expiration Date V isits Requested Visits Authorized [id number] Closed Perform Procedure 09/11/2024 03/13/2026 1 1 * Consultation (Routine) - Closed Specialty Diagnoses / Procedures Referred By Contadrián linda Referred To Contact Diagnoses CML (chronic myelocytic leukemia) (CMS/HCC) Mk Pastrana MD [address] [facility] [address] [place] [address] Phone: tel: fax: Referral ID Status Reason Start Date Expiration Date V isits Requested Visits Authorized [id number] Closed Specialty Services Required 09/11/2024 03/13/2026 1 1 * Genetic Testing (Routine) - Closed Specialty Diagnoses / Procedures Referred By Akosua linda Referred To Contact Lab Diagnoses CML (chronic myelocytic leukemia) (CMS/HCC) Procedures STR, Patient Specimen Mk Pastrana MD [address] [facility] Cancer [address] [address] Phone: tel: fax: Referral ID Status Reason Start Date Expiration Date Visits Re quested Visits Authorized [id number] Closed 09/11/2024 03/13/2026 1 1 Encounter Details Date Type Department Care Team ([facility] Contact Info) Description 09/11/2024 Orders Only [facility] Hematology/BMT and Cellular Therapy Program [address] [place] [address] Leo De Souza RN [facility] CML (chronic myelocytic leukemia) ([facility]/HCC) (Primary Dx) Social History Tobacco Use [...] Hematology/BMT and Cellular Therapy Program [address] [place] [address] 10/30/2024 8:30 AM EDT Office Visit [facility] Hematology/BMT and Cellular Therapy Program [address] [place] [address] Radha Morelos, WALLPAPER INSPECTOR AND SHIPPER [address] [facility] Cancer [address] [address] 11/13/2024 1:00 PM EDT Office Visit [facility] [address] [place] [address] Verena Montes PA [address] [facility] [address] [place] [address] 11/27/2024 1:30 PM EDT Clinical Support [facility] Hematology/BMT and Cellular Therapy Program [address] [phone] 11/27/2024 2:00 PM EDT Office Visit [facility] Hematology/BMT and Cellular Therapy Program [address] [phone] Mk Pastrana MD [address] [facility] [address] [place] [phone] Pending Results Name Type Priority Associated Diagnoses Date /Time STR, Patient Specimen Lab Routine CML (chronic myelocytic leukemia) ([facility]) 09/25/2024 10:23 AM EDT Scheduled Orders Name Type Priority Associated Diagnoses Orde r Schedule HLA Antibody Testing (LSA) Lab Routine CML (chronic myelocytic leukemia) ([facility]) Expected: 09/30/2024 (Approximate), Expires: 03/15/2026 STR, Patient Specimen Lab Routine CML (chronic myelocytic leukemia) ([facility]) Expected: 09/25/2024 (Approximate), Expires: 03/15/2026 Scheduled Referrals Name Type Priority Associated Diagnoses Order Schedule Ambulatory Oncology Referral to Psych ONC Counseling Outpatient Referral Routine CML (chronic myelocytic leukemia) ([facility]) Expected: 09/30/2024, Expires: 03/15/2026 documented as of this encounter Results * Pulmonary function testing (09/25/2024 4:31 PM EDT) [id number] 3.21 L 09/25/2024 4:28 PM EDT VYAIRE [...] 1.98 09/25/2024 4:28 PM EDT VYAIRE PFT BTV5JIMZBWTQN -0.62 09/25/2024 4:28 PM EDT VYAIRE PFT FEV1_Pre%Pred 92 % % 09/25/2024 4:28 PM EDT VYAIRE PFT FEV1 PREDAUTH US_Quanjer GLI (2011) 09/25/2024 4:28 PM EDT VYAIRE PFT FEV1 Z-SCORE -0.62 09/25/2024 4:28 PM EDT VYAIRE PFT FEV1/FVC PRE 73.32 % 09/25/2024 4:28 PM EDT VYAIRE PFT [id number] 81 09/25/2024 4:28 PM EDT VYAIRE PFT FEV1/FVC PRELLN 71 4:28 PM EDT VYAIRE PFT EOX3XCUQECAZBVZO -1.25 09/26/19 4:28 PM EDT VYAIRE PFT ICB0TEDOJM%PRED 91 % % 4:28 PM EDT VYAIRE PFT [id number] US_Quanjer GLI (2011) 09/25/2024 4:28 PM EDT VYAIRE PFT ISP5LGLFUKYHF -1 09/25/2024 4:28 PM EDT VYAIRE PFT VFM63-82% PRE 1.73 L/s 09/25/2024 4:28 PM EDT VYAIRE PFT IIE59-28%_Pred 2.51 09/25/2024 4:28 PM EDT VYAIRE PFT ESN17-27% PRELLN 1.38 09/26/19 4:28 PM EDT VYAIRE PFT GET8306%PREZSCORE -1.08 025 4:28 PM EDT VYAIRE PFT BKL5061%PRE%PRED 69 % % 09/26/19 4:28 PM EDT VYAIRE PFT KKX3663%[facility] US_Quanjer GLI (2011) 09/25/2024 4:28 PM EDT [...] (1992) 09/25/2024 4:28 PM EDT VYAIRE PFT ODQNUUROPHPMXALC0XMD 13.30 ml/(min* mmHg) 09/25/2024 4:28 PM EDT VYAIRE PFT DLCOSINGLEBREATH PRED 20.70 09/25/2024 4:28 PM EDT VYAIRE PFT DLCOSINGLEBREATH LLN 16.09 09/08 4:28 PM EDT VYAIRE PFT DLCOSINGLEBREATH Z-SCORE -2.83 09/25/2024 4:28 PM EDT VYAIRE PFT DLCOSINGLEBREATH % PRED 64.2 % 09/25/2024 4:28 PM EDT VYAIRE PFT DLCOSINGLEBREATH [facility] Stanojevic TLCO GLI (2019) 09/25/2024 4:28 PM EDT VYAIRE PFT DLCOSINGLEBREATH Z-SCORE -2.83 09/25/2024 4:28 PM EDT VYAIRE PFT XTTSSEKELXGOQZLXH3VR E 13.88 ml/(min* mmHg) 09/25/2024 4:28 PM EDT VYAIRE PFT DLCOCSINGLEBREATH PRED 20.70 09/25/2024 4:28 PM EDT VYAIRE PFT DLCOCSINGLEBREATH LLN 16.09 09/25/2024 4:28 PM EDT VYAIRE PFT DLCOCSINGLEBREATH Z-SCORE -2.56 09/25/2024 4:28 PM EDT VYAIRE PFT DLCOCSINGLEBREATH % PRED 67.1 % 09/25/2024 4:28 PM EDT VYAIRE PFT DLCOCSINGLEBREATH PREDAUTH Cherry TLCO GLI (2019) 09/25/2024 4:28 PM EDT VYAIRE PFT NISRDD0RGU 2.90 ml/(min* mmHg*L) 09/25/2024 4:28 PM EDT VYAIRE PFT DLCOVAPRED 4.27 09/25/2024 4:28 PM EDT VYAIRE PFT DLCOVALLN 3.33 09/25/2024 4:28 PM EDT VYAIRE PFT DLCOVAZSCORE -2.47 09/25/2024 4:28 PM EDT VYAIRE PFT DLCOVA%PRED 68.0 % 09/25/2024 4:28 PM EDT VYAIRE PFT DLCOVAPREDAUTH Stanlibbyvic TLCO GLI (2019) 09/25/2024 4:28 PM EDT VYAIRE PFT DLCOVAZSCORE -2.47 09/25/2024 4:28 PM EDT VYAIRE PFT WQKJEKRQQ6LPE 3.03 ml/(min* mmHg*L) 09/25/2024 4:28 PM EDT VYAIRE PFT DLCOC SB/VA PRED 4.27 09/26/19 4:28 PM EDT VYAIRE PFT DLCOC SB/VA LLN 3.33 4:28 PM EDT VYAIRE PFT DLCOC SB/VA Z-SCORE -2.21 09/25 4:28 PM EDT VYAIRE PFT DLCOC SB/VA % PRED 71.0 % 2024 4:28 PM EDT VYAIRE PFT DLCOC SB/VA [facility] Cherry TLCO GLI (2019) 09/25/2024 4:28 PM EDT VYAIRE PFT DLCOC SB/VA Z-SCORE -2.21 09/25 4:28 PM EDT VYAIRE PFT YRCSISCJWACXWV8HQW 4.58 L 2024 4:28 PM EDT VYAIRE PFT VASINGLEBREATH PRED 4.88 09/25 4:28 PM EDT VYAIRE PFT VASINGLEBREATH LLN 3.98 2024 4:28 PM EDT VYAIRE PFT VASINGLEBREATH Z-SCORE -0.52 09/25/2024 4:28 PM EDT VYAIRE PFT VASINGLEBREATH % PRED 94.0 % 09/25/2024 4:28 PM EDT VYAIRE PFT VASINGLEBREATH [facility] Cherry TLCO GLI (2019) 09/25/2024 4:28 PM EDT VYAIRE PFT VASINGLEBREATH Z-SCORE -0.52 09/25/2024 4:28 PM EDT VYAIRE PFT GDBGHZYCFJNDDNH9VTH 3.10 L 09/25 4:28 PM EDT VYAIRE [...] g(Hb)/dL 09/25/2024 4:28 PM EDT VYAIRE PFT YXH9IZH 5.21 L 09/25/2024 4:28 PM EDT VYAIRE [...] (2019)__ 09/25/2024 4:28 PM EDT VYAIRE PFT PPIFRBGV6CII 2.74 L 09/25/2024 4:28 PM EDT VYAIRE PFT FRCPLETH PRED 2.74 09/25/2024 4:28 PM EDT VYAIRE PFT FRCPLETH LLN 1.94 09/25/2024 4:28 PM EDT VYAIRE PFT FRCPLETH ULN 3.74 09/25/2024 4:28 PM EDT VYAIRE PFT FRCPLETH Z-SCORE 0.01 09/26/19 4:28 PM EDT VYAIRE PFT FRCPLETH % PRED 100.3 % 4:28 PM EDT VYAIRE PFT FRCPLETH [facility] Lung volumes GLI (2019)__ 09/25/2024 4:28 PM EDT VYAIRE PFT QVB4BRF 0.68 L 09/25/2024 4:28 PM EDT VYAIRE [...] (2019)__ 09/25/2024 4:28 PM EDT VYAIRE PFT RV%JMS1EYS 38.52 % 09/25/2024 4:28 PM EDT VYAIRE PFT RV%TLCPRED 30 09/25/2024 4:28 PM EDT VYAIRE PFT RV%TLCLLN 19 09/25/2024 4:28 PM EDT VYAIRE PFT RV%TLCULN 41 09/25/2024 4:28 PM EDT VYAIRE PFT RV%TLCZSCORE 1.32 09/25/2024 4:28 PM EDT VYAIRE PFT RV%TLC%PRED 130.0 % 09/25/2024 4:28 PM EDT VYAIRE PFT RV%TLCPREDAUTH Palm Lung volumes GLI (2019)__ 09/25/2024 4:28 PM EDT VYAIRE PFT CVJ3ZEM 2.89 L 09/25/2024 4:28 PM EDT VYAIRE PFT Anatomical Region Laterality Modality PFT 09/25/2024 3:47 PM EDT Narrative 09/30/2024 8:27 AM EDT Pulmonary Function Testing Report Amita Ortiz 54 y.o. underwent pulmonary function testing today at the [facility]. The patient underwent spirometry, lung [...] 8 mm WINDY ISCV LVPWd 9 mm WIDNY ISCV LV MASS(C)D 97 g WINDY ISCV [facility] CV ECHO LV MASS INDEX 58 g/m2 WINDY ISCV LV RWT 0.44 mm WIDNY ISCV LV EDV (3D HM) 117 mL [...] Root Diam 32 mm WINDY ISCV PA NM(ACCEL) 18.7 mmHg WINDY ISCV LV Lat e' Velocity 9.3 cm/s WINDY ISCV LV Sept e' Roberto 9.6 cm/s WINDY ISCV Lat E/e' 10.1 WINDY ISCV Sep E/e' 9.8 WIDNY ISCV Avg E/e' 10.0 WINDY ISCV Anatomical [...] is no recent study available for direct sbma-is-xjwa comparison. Left Ventricle The left ventricle is [...] is no recent study available for direct nsgb-me-olet comparison. us Mk Pastrana MD CV ECHO [...] ECG Atrial Rate 72 BPM MUSE ECG NM Interval 122 ms MUSE ECG QRSD Interval 64 ms MUSE ECG QT Interval 406 ms MUSE ECG QTC Interval 444 ms MUSE ECG P [place] 71 degrees MUSE ECG R [place] 54 degrees MUSE ECG T Wave [place] 87 degrees MUSE ECG Diagnosis Normal sinus rhythm MUSE ECG Diagnosis Low voltage QRS MUSE ECG Diagnosis Borderline ECG MUSE ECG Diagnosis MUSE ECG Diagnosis Confirmed by Arsalan Ko ([id number]) on 09/25/2024 11:05:04 AM MUSE ECG 09/25/2024 10:3 8 AM EDT 09/25/2024 11:05 AM EDT Mk Pastrana MD ECG ORDERABLES Final Result Performing Organization Address City/[facility]/ZIP Co de Phone Number MUSE ECG * APTT (09/25/2024 10:23 AM EDT) aPTT 28 25 - 35 sec LAB COAGULATION METHOD 09/25/2024 11:00 AM EDT [facility] Blood Venous blood specimen / Unknown Venipuncture / Unknown 09/25/2024 10:23 AM EDT 09/25/2024 10:34 AM EDT Mk Pastrana MD LAB BLOOD ORDERABLES Final Re sult [facility] [address] [facility] [place] [address] * Prothrombin Time/INR (09/25/2024 10:23 AM EDT) Prothrombin Time 12.7 12.0 - 14.3 sec LAB COAGULATION METHOD 09/25/2024 11:00 AM EDT [facility] INR 0.9 0.9 - 1.1 LAB COAGULATION METHOD 09/25/2024 11:00 AM EDT [facility] Blood Venous blood specimen / Unknown Venipuncture / Unknown 09/25/2024 10:23 AM EDT 09/25/2024 10:34 AM EDT Narrative [facility] - 09/25/2024 11:00 AM [...] MD LAB BLOOD ORDERABLES Final Re sult [facility] [address] [place] [address] * Toxoplasma gondii antibody, IgG (09/25/2024 10:23 AM EDT) Pathologist [facility] TOXOPLASMA IGG AB 3.7 <=8.8 IU/mL 09/27/2024 1:29 AM EDT [facility] [employer] [facility] ([place]) Blood Venous blood specimen / Unknown Venipuncture / Unknown 09/25/2024 10:23 AM EDT 09/25/2024 10:34 AM EDT Narrative [facility] ([place]) - 09/27/2024 1:29 AM EDT [...] the amount of antibody present. Performed By: [employer] [address] [place] [address] Conservation Of Resources Commissioner: Sunil Gomez MD, PhD CLIA Number: [id number] us Mk Pastrana MD LAB BLOOD ORDERABLES Final Re sult [facility] ([place]) [address] [place] [address] * [place] Fontanez Virus (EBV) Quantitative PCR (09/25/2024 10:23 AM EDT) Stanislaw Fontanez Virus, Blood, Quant DNA Interpretation Not Detected Not Detected 10/01/2024 6:35 AM EDT [facility] Blood Venous blood specimen / Unknown Venipuncture / Unknown 09/25/2024 10:23 AM EDT 09/25/2024 10:34 AM EDT Narrative [facility] - 10/01/2024 6:35 AM [...] developed and it's performance characteristics determined by [facility] as appropriate for clinical purposes. [...] developed and it's performance characteristics determined by [facility] as appropriate for clinical purposes. This assay has not been cleared or approved by the FDA, but is performed in a CLIA regulated laboratory that is qualified to perform high-complexity testing. Mk Pastrana MD LAB BLOOD ORDERABLES Final Re sult Performing Organization Address [facility]/ZIP Co de Phone Number [facility] [address] [place] [address] * (ABNORMAL) Ferritin (09/25/2024 10:23 AM EDT) Ferritin, Serum 294(H) 13 - 150 ng/mL 09/25/2024 11:17 AM EDT [facility] Blood Venous blood specimen / Unknown Venipuncture / Unknown 09/25/2024 10:23 AM EDT 09/25/2024 10:35 AM EDT Mk Pastrana MD LAB BLOOD ORDERABLES Final Re sult Performing Organization Address [facility] [place] [address] * LDH (09/25/2024 10:23 AM EDT) LDH, Plasma 192 116 - 250 U/L 09/25/2024 11:17 AM EDT [facility] Blood Venous blood specimen / Unknown Venipuncture / Unknown 09/25/2024 10:23 AM EDT 09/25/2024 10:34 AM EDT Mk Pastrana MD LAB BLOOD ORDERABLES Final Re sult Performing Organization Address City/[facility] Co de Phone Number [facility] [address] [place] [address] * Thyroid Stimulating Hormone, Plasma (09/25/2024 10:23 AM EDT) Thyroid Stimulating Hormone, Plasma 1.01 0.40 - 4.20 uIU/mL 09/25/2024 11:17 AM EDT [facility] Blood Venous blood specimen / Unknown Venipuncture / Unknown 09/25/2024 10:23 AM EDT 09/25/2024 10:34 AM EDT Narrative [facility] - 09/25/2024 11:17 AM EDT Trimester Specific Ranges TSH ( IU/mL) 1st Trimester 0.1 - 3.0 2nd Trimester 0.19 - 4.06 3rd Trimester 0.3 - 3.7 Mk Pastrana MD LAB BLOOD ORDERABLES Final Re sult Performing Organization Address City/[facility]/ZIP Co de Phone Number [facility] [address] [place] [address] * ABO/Rh Type (09/25/2024 10:23 AM EDT) ABO/Rh AB Positive 09/25/2024 10:12 AM EDT [facility] Blood Venous blood specimen / Unknown Venipuncture / Unknown 09/25/2024 10:23 AM EDT 09/25/2024 10:39 AM EDT Mk Pastrana MD LAB BLOOD BANK TEST ORDERABLE S Final Result Performing Organization Address City/[facility] Co de Phone Number BLOOD BANK [address] [place] [address], [place] * CMP (09/25/2024 10:23 AM EDT) Glucose, Plasma 85 74 - 99 mg/dL 09/25/2024 11:17 AM EDT [facility] BUN, Plasma 12 7 - 21 mg/dL 09/25/2024 11:17 AM EDT [facility] Creatinine, Plasma 0.65 0.60 - 1.10 mg/dL 09/25/2024 11:17 AM EDT [facility] BUN/Creatinine Ratio 18 09/25/2024 11:17 AM EDT [facility] Sodium, Plasma 140 136 - 145 mmol/L 09/25/2024 11:17 AM EDT [facility] Potassium, Plasma 4.3 3.6 - 4.9 mmol/L 09/25/2024 11:17 AM EDT [facility] Chloride, Plasma 106 97 - 107 mmol/L 09/25/2024 11:17 AM EDT [facility] CO2, Plasma 23 22 - 29 mmol/L 09/25/2024 11:17 AM EDT [facility] Anion Gap 11 6 - 16 mmol/L 09/25/2024 11:17 AM EDT [facility] Total Calcium, Plasma 9.7 8.9 - 10.2 mg/dL 09/25/2024 11:17 AM EDT [facility] Total Protein 7.7 6.3 - 7.9 g/dL 09/25/2024 11:17 AM EDT [facility] Albumin, Plasma 4.8 3.5 - 5.2 g/dL 09/25/2024 11:17 AM EDT [facility] AST, Plasma 17 10 - 35 U/L 09/25/2024 11:17 AM EDT [facility] ALT, Plasma 12 10 - 35 U/L 09/25/2024 11:17 AM EDT [facility] Alkaline Phosphatase, Plasma 100 35 - 104 U/L 09/25/2024 11:17 AM EDT [facility] Total Bilirubin, Plasma 0.8 0.2 - 1.1 mg/dL 09/25/2024 11:17 AM EDT [facility] eGFRcr 106.1 mL/min/1.7 3m*2 09/25/2024 11:17 AM EDT [facility] Comment:Reported eGFRcr in m L/min/1.73m2 is based the CKD-EPI 2020 equation that does not use a race coefficient. Blood Venous blood specimen / Unknown Venipuncture / Unknown 09/25/2024 10:23 AM EDT 09/25/2024 10:34 AM EDT us Mk Pastrana MD LAB BLOOD ORDERABLES Final Re sult [facility] [address] [place] [address] * (ABNORMAL) CBC and Differential (09/25/2024 10:23 AM EDT) WBC Count 1.98(L) 3.70 - 10.30 10*3/uL LAB HEMATOLOGY METHOD 09/25/2024 11:15 AM EDT [facility] RBC Count 3.68(L) 3.90 - 5.20 10*6/uL LAB HEMATOLOGY METHOD 09/25/2024 11:15 AM EDT [facility] HGB 12.1 11.2 - 15.7 g/dL LAB HEMATOLOGY METHOD 09/25/2024 11:15 AM EDT [facility] HCT 35.4 34.0 - 45.0 % LAB HEMATOLOGY METHOD 09/25/2024 11:15 AM EDT [facility] Platelet Count 61(L) 155 - 369 10*3/uL LAB HEMATOLOGY METHOD 09/25/2024 11:15 AM EDT [facility] MCV 96 79 - 98 fL LAB HEMATOLOGY METHOD 09/25/2024 11:15 AM EDT [facility] MCH 32.9(H) 26.0 - 32.0 pg LAB HEMATOLOGY METHOD 09/25/2024 11:15 AM EDT [facility] MCHC 34.2 30.7 - 35.5 g/dL LAB HEMATOLOGY METHOD 09/25/2024 11:15 AM EDT [facility] RDW 17.5(H) 11.5 - 14.5 % LAB HEMATOLOGY METHOD 09/25/2024 11:15 AM EDT [facility] MPV 11.0 8.8 - 12.5 fL LAB HEMATOLOGY METHOD 09/25/2024 11:15 AM EDT [facility] nRBC 0.0 <=0.0 per 100 WBCs LAB HEMATOLOGY METHOD 09/25/2024 11:15 AM EDT [facility] Differential Type Automated LAB HEMATOLOGY METHOD 09/25/2024 11:15 AM EDT [facility] Neutrophils % 21 % LAB HEMATOLOGY METHOD 09/25/2024 11:15 AM EDT [facility] Lymphocytes % 73 % LAB HEMATOLOGY METHOD 09/25/2024 11:15 AM EDT [facility] Monocytes % 4 % LAB HEMATOLOGY METHOD 09/25/2024 11:15 AM EDT [facility] Eosinophils % 1 % LAB HEMATOLOGY METHOD 09/25/2024 11:15 AM EDT [facility] Basophils % 1 % LAB HEMATOLOGY METHOD 09/25/2024 11:15 AM EDT [facility] Immature Granulocytes % 0 % LAB HEMATOLOGY METHOD 09/25/2024 11:15 AM EDT [facility] Neutrophils Absolute 0.42(LL) 1.60 - 6.10 10*3/uL LAB HEMATOLOGY METHOD 09/25/2024 11:15 AM EDT [facility] Lymphocytes Absolute 1.46 1.20 - 3.90 10*3/uL LAB HEMATOLOGY METHOD 09/25/2024 11:15 AM EDT [facility] Monocytes Absolute 0.07(L) 0.30 - 0.90 10*3/uL LAB HEMATOLOGY METHOD 09/25/2024 11:15 AM EDT [facility] Eosinophils Absolute 0.02 0.00 - 0.50 10*3/uL LAB HEMATOLOGY METHOD 09/25/2024 11:15 AM EDT [facility] Basophils Absolute 0.01 0.00 - 0.10 10*3/uL LAB HEMATOLOGY METHOD 09/25/2024 11:15 AM EDT [facility] Immature Granulocytes Absolute 0.00 0.00 - 0.06 10*3/uL LAB HEMATOLOGY METHOD 09/25/2024 11:15 AM EDT [facility] Blood Venous blood specimen / Unknown Venipuncture / Unknown 09/25/2024 10:23 AM EDT 09/25/2024 10:34 AM EDT Narrative [facility] - 09/25/2024 11:15 AM EDT Therapeutic decision making should be based on absolute values, rather than percentages. Mk Pastrana MD LAB BLOOD ORDERABLES Final Re sult [facility] [address] [place] [address] documented in this encounter Visit Diagnoses Diagnosis [...] documented as of this encounter Care Teams Game Technician Relationship Specialty Start Date End Date Willi Frost MD [address] [place] [address] [address] [place] [address] PCP - General 06/11/24 documented as of this encounter
--- OUTSIDE RECORDS SUMMARY | 2024-10-22 12:27 | XMS_ITS | Encounter Summary ---
Author Organization [facility] Address [address] [place] [address] Care Team Providers Care Pack[employer] Supplies Distributor Name Role Phone Willi Frost MD Primary Care Provider [phone] Reason for Referral * Transplant (Routine) - Authorized Specialty Diagnoses / Procedures Referred By Contac t Referred To Contact Blood and Marrow Transplant Diagnoses CML (chronic myelocytic leukemia) (CMS/HCC) Procedures BMT Authorization for Transplant Mk Pastrana MD [address] [facility] [address] [place] [phone] Phone: tel: fax: [facility] Hematology/BMT and Cellular Therapy Program [address] [phone] Phone: tel: fax: Referral ID Status Reason Start Date Expiration Date V isits Requested Visits Authorized [id number] Authorized 09/25/2024 03/27/2026 1 1 Encounter Details Date Type Department Care Team (Late st Contact Info) Description 09/25/2024 Orders Only [facility] Hematology/BMT and Cellular Therapy Program [address] [phone] Leo De Souza, RN [facility] HEMATOLOGY PROGRAM CLINIC CML (chronic myelocytic leukemia) [...] Upcoming Encounters Date Type Department Care Team ([facility] Contact Info) Description 10/30/2024 8:00 AM EDT Clinical Support [facility] Hematology/BMT and Cellular Therapy Program [address] [phone] 10/30/2024 8:30 AM EDT Office Visit [facility] Hematology/BMT [facility] Cellular Therapy [facility] [address] [phone] Radha Morelos, [employer] [address] [facility] [address] [place] [phone] 11/13/2024 1:00 PM EDT Office Visit [facility] [address] [place] [phone] Verena Montes PA [address] [facility] [address] [place] [address] 11/27/2024 1:30 PM EDT Clinical Support [facility] Hematology/BMT and Cellular Therapy Program [address] [phone] 11/27/2024 2:00 PM EDT Office Visit [facility]ology/BMT [facility] Cellular Therapy Program [address] [phone] Mk Pastrana MD [address] [facility] [address] [place] [phone] documented as of this encounter Visit Diagnoses Diagnosis CML (chronic myelocytic leukemia) (CMS/HCC)- Primary Chronic myeloid leukemia, without mention of having achieved remission documented in this encounter Additional Health Concerns Assessment Noted Time A Body Mass Index follow-up plan has been documented for the patient 09/11/2024 6:12 PM EDT documented as of this encounter Care Teams Packaging Machine Supplies Distributor Relationship Specialty Start Date End Date Willi Frost MD [address] [place] [address] PCP - General 06/11/24 documented as of this encounter
--- OUTSIDE RECORDS SUMMARY | 2024-10-22 12:27 | XMS_ITS | Clinical Summary ---
Author Organization [facility] Address [address] [place] [address] Care Team Providers Care Audiometrist Name Role Phone Willi Frost MD Primary Care Provider Allergies No known active allergies Medications cetirizine [...] Encounters Date Type Department Care Team Description 10/18/2024 Lab Requisition [facility] [address] [place] [phone] Dary Vincent APRN Chronic myeloid leukemia, BCR/ABL-positive, 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) 10/14/2024 Telephone [facility] Hematology/BMT and Cellular Therapy Program 750 [facility] [place] [facility] [place] [phone] Mk Pastrana MD 10/14/2024 Lab Requisition [facility] Blood Bank [address] [place] [phone] Moises Estrada MD General medical exam 10/10/2024 Telephone [facility] Hematology/BMT and Cellular Therapy Program [address] [phone] Michelle Sims RN 10/10/2024 Lab Requisition [facility] [address] [place] [address] Dary Vincent APRN Acute myeloblastic leukemia, 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) 10/08/2024 10:00 AM EDT Office Visit [facility] Hematology/BMT and Cellular Therapy Program [address] [phone] Mk Pastrana MD CML (chronic myelocytic leukemia) ([facility]) (Primary Dx); Encounter for antineoplastic chemotherapy; Acquired syphilis 10/08/2024 9:30 AM EDT Office Visit [facility] Hematology/BMT and Cellular Therapy Program [address] [phone] 10/08/2024 Telephone [facility] Interventional Radiology [address] [place] [address] Radha Mary, MORENA 10/08/2024 Telephone [facility] [address] [place] [phone] Erwin Valentin, PharmD new start 10/08/2024 Travel 10/08/2024 Lab Requisition [facility] Blood Bank [address] [place] [phone] Moises Estrada MD General medical exam 10/07/2024 Travel 10/07/2024 Orders Only [facility] Hematology/BMT and Cellular Therapy Program [address] [phone] Virgilio King, RN CML (chronic myelocytic leukemia) ([facility]/HCC) (Primary Dx) 10/04/2024 Lab Requisition [facility] [address] [place] [address] Dary Vincent APRN Chronic myeloid leukemia, BCR/ABL-positive, not having achieved remission ([facility]/HCC) 10/03/2024 9:00 AM EDT Procedure Visit [facility] Hematology/BMT and Cellular Therapy Program [address] [phone] Bhavana Bella APRN CML (chronic myelocytic leukemia) ([facility]) (Primary Dx) 10/03/2024 8:30 AM EDT Clinical Support [facility] Hematology/BMT and Cellular Therapy Program [address] [phone] 10/03/2024 Telephone [facility] Hematology/BMT and Cellular Therapy Program [address] [place] [phone] Oralia Liu RN 10/03/2024 Travel 10/02/2024 Travel 09/25/2024 3:00 PM EDT - 09/25/2024 11:59 PM EDT Hospital Encounter [facility] H Pulmonary Function Testing [address] [place] [phone] CML (chronic myelocytic leukemia) ([facility]) Discharge Disposition: Home or Self Care 09/25/2024 2:00 PM EDT - 09/25/2024 2:59 PM EDT Hospital Encounter [facility] Echo 800 [facility] 2nd [place] [phone] CML (chronic myelocytic leukemia) ([facility]) Discharge Disposition: Home or Self Care 09/25/2024 1:24 PM EDT - 09/25/2024 1:59 PM EDT Hospital Encounter [facility] [address], 1[address] [place] [address] Discharge Disposition: Home or Self Care 09/25/2024 1:00 PM EDT Clinical Support [facility] Hematology/BMT and Cellular Therapy Program [address] [phone] Jocelin Ahuja RN 09/25/2024 11:00 AM EDT Office Visit [facility] Hematology/BMT and Cellular Therapy Program [address] [place] [address] Elena Ledezma APRN CML (chronic myelocytic leukemia) ([facility]) 09/25/2024 10:00 AM EDT Clinical Support [facility] Hematology/BMT and Cellular Therapy Program [address] [place] [address] CML (chronic myelocytic leukemia) ([facility]) 09/25/2024 Social Work Psych Oncology [address] [place] [address] Michelle Gamez, [facility] 09/25/2024 Orders Only [facility] Hematology/BMT and Cellular Therapy Program [address] [place] [phone] Leo De Souza RN CML (chronic myelocytic leukemia) ([facility]) (Primary Dx) 09/25/2024 Telephone [facility] Hematology/BMT and Cellular Therapy Program [address] [phone] Tg Rodgers RN 09/25/2024 Travel 09/19/2024 Social Work Psych Oncology [address] [place] [address] Michelle Gamez, [facility] 09/17/2024 Orders Only [facility] Hematology/BMT and Cellular Therapy Program [address] [place] [phone] Leo De Souza RN CML (chronic myelocytic leukemia) ([facility]) (Primary Dx) 09/11/2024 3:00 PM EDT Office Visit [facility] Adult Dentistry [address] [place] [address] Michelle Garza Cancer ([facility]) (Primary Dx); Extraction of tooth needed 09/11/2024 Travel 09/11/2024 Orders Only [facility] Hematology/BMT and Cellular Therapy Program [address] [place] [address] Khoshreza, Leo C, RN CML (chronic myelocytic leukemia) (CMS/HCC) (Primary Dx) 09/10/2024 1:34 PM EDT - 09/10/2024 11:59 PM EDT Hospital Encounter [facility] Infusion Clinic 2 [address] [place] [phone] CML (chronic myelocytic leukemia) (CMS/HCC) (Primary Dx) Discharge Disposition: Home or Self Care 09/10/2024 11:30 AM EDT Office Visit [facility] Hematology/BMT and Cellular Therapy Program [address] [place] [address] Bhavana Bella APRN CML (chronic myelocytic leukemia) (CMS/HCC) (Primary Dx) 09/10/2024 11:00 AM EDT Clinical Support [facility] Hematology/BMT and Cellular Therapy Program [address] [place] [phone] Tony Foreman, RN 09/10/2024 Telephone [facility] Hematology/BMT and Cellular Therapy Program [address] [phone] Tg Rodgers RN 09/10/2024 Travel 08/28/2024 2:00 PM EDT Office Visit [facility] Adult Dentistry [address] [place] [address] Michelle Garza CML (chronic myelocytic leukemia) (CMS/HCC) 08/28/2024 8:29 AM EDT - 08/28/2024 11:59 PM EDT Hospital Encounter [facility] Ultrasound [address] [place] [phone] CML (chronic myelocytic leukemia) (CMS/HCC); Hyperbilirubinemia; Hepatosplenomegaly Discharge Disposition: Home or Self Care 08/28/2024 Social Work Psych Oncology [address] [place] [address] Michelle Gamez LCSW 08/28/2024 Orders Only [facility] Hematology/BMT and Cellular Therapy Program [address] [phone] Jojo Iyer, VernellD CML (chronic myelocytic leukemia) (CMS/HCC) (Primary Dx) 08/28/2024 Telephone [facility] Hematology/BMT and Cellular Therapy Program [address] [phone] Jocelin Ahuja RN critical lab 08/28/2024 Travel 08/27/2024 Travel 08/20/2024 9:30 AM EDT Office Visit [facility] Hematology/BMT and Cellular Therapy Program [address] [phone] Mk Pastrana MD Encounter for antineoplastic chemotherapy (Primary Dx); CML (chronic myelocytic leukemia) (CMS/HCC); Hyperbilirubinemia; CML (chronic myeloid leukemia) (CMS/HCC); Hepatosplenomegaly 08/20/2024 9:00 AM EDT Clinical Support [facility] Hematology/BMT and Cellular Therapy Program [address] [phone] 08/20/2024 Social Work Psych Oncology [address] [place] [address] Michelle Gamez LCSW 08/20/2024 Travel 08/01/2024 Telephone [facility] Hematology/BMT and Cellular Therapy Program [address] [place] [phone] Mk Pastrana MD 07/30/2024 Orders Only [facility] Hematology/BMT and Cellular Therapy Program [address] [place] [phone] Virgilio King, RN CML (chronic myelocytic leukemia) (CMS/HCC); Smoker 07/24/2024 11:00 AM EDT Office Visit [facility] Hematology/BMT and Cellular Therapy Program [address] [place] [phone] Mk Pastrana MD CML (chronic myelocytic leukemia) (CMS/HCC) (Primary Dx); Hyperbilirubinemia; Encounter for antineoplastic chemotherapy 07/24/2024 10:30 AM EDT Clinical Support [facility] Hematology/BMT and Cellular Therapy Program [address] [phone] Gisselle Shaffer RN 07/24/2024 Travel from Last 3 Months Family History Medical [...] CC Hematology/BMT and Cellular Therapy Program [address] [phone] 10/30/2024 8:30 AM EDT Office Visit [facility] Hematology/BMT and Cellular Therapy Program [address] [phone] Radha Morelos, [employer] [address] [facility] [address] [place] [phone] 11/13/2024 1:00 PM EDT Office Visit [facility] [address] [facility] [place] [address] Verena Montes PA [address] [facility] [address] [place] [address] 11/27/2024 1:30 PM EDT Clinical Support [facility] Hematology/BMT and Cellular Therapy Program [address] [place] [address] 11/27/2024 2:00 PM EDT Office Visit [facility] Hematology/BMT and Cellular Therapy Program [address] [place] [address] Mk Pastrana MD [address] [facility] [address] [place] [phone] Health Maintenance Due Date Last Done Comments Dental Prophylaxis 1972 Dental X-Ray: Bitewings 1972 [facility]-Infant/Child/Adol SDOH Screenings 1972 [id number] Vaccine (#1) 1977 [facility]- SDOH Screenings 1990 [...] leukemia, BCR/ABL-positive, 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) RPR TITER Routine 10/08/2024 9:39 AM [...] 9:39 AM EDT CML (chronic myelocytic leukemia) ([facility]/HCC) CBC WITH AUTO DIFFERENTIAL Routine 10/08/2024 9:39 AM EDT CML (chronic myelocytic leukemia) (CMS/HCC) TREPONEMA PALLIDUM (SYPHILIS) ANTIBODIES WITH REFLEX TO RPR AND RPR TITER (THOSE WITH NO KNOWN SYPHILIS) Routine 10/08/2024 9:39 AM EDT CML (chronic myelocytic leukemia) (CMS/HCC) BILL ONLY TYPE & SCREEN Routine 10/08/19 [...] myeloblastic leukemia, 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) BILL ONLY HLA NGS HIGH RESOLUTION TYPING [...] 00 AM EDT CML (chronic myelocytic leukemia) ([facility]/HCC) BONE MARROW EXAM Routine 10/03/2024 8:48 AM EDT CML (chronic myelocytic leukemia) (CMS/HCC) FISH, ONCOLOGY Routine 10/03/2024 8:48 AM EDT CML (chronic myelocytic leukemia) (CMS/HCC) CHROMOSOME KARYOTYPE, ONCOLOGY Routine 10/03/2024 8:48 AM EDT CML (chronic myelocytic leukemia) (CMS/HCC) MYELOID FOCUSED PANEL, 50 GENE Routine 10/03/2024 8:48 AM EDT CML (chronic myelocytic leukemia) (CMS/HCC) CYTOGENETICS TESTING, ONCOLOGY Routine 10/03/2024 8:48 AM EDT CML (chronic myelocytic leukemia) (CMS/HCC) LEUKEMIA/LYMPHOMA - IMMUNOPHENOTYPING BY FLOW CYTOMETRY Routine 10/03/2024 8:48 AM EDT CML (chronic myelocytic leukemia) (CMS/HCC) CBC WITH AUTO DIFFERENTIAL Routine 10/03/2024 8:18 AM EDT CML (chronic myelocytic leukemia) (CMS/HCC) IL BREATHING CAPACITY TEST Routine 09/25/2024 4:31 PM [...] 10:23 AM EDT CML (chronic myelocytic leukemia) (CMS/[facility]) CREATININE CLEARANCE, PLASMA AND 24-HOUR URINE Routine 09/25/2024 10:23 AM EDT CML (chronic myelocytic leukemia) ([facility]) FERRITIN, SERUM Routine 09/25/2024 10:23 AM EDT CML (chronic myelocytic leukemia) ([facility]) LACTATE DEHYDROGENASE, PLASMA Routine 09/25/2024 10:23 AM EDT CML (chronic myelocytic leukemia) (CMS/HCC) TSH Routine 09/25/2024 10:23 AM EDT CML (chronic myelocytic leukemia) ([facility]) ABO/RH Routine 09/25/2024 10:23 AM EDT CML (chronic myelocytic leukemia) (CMS/[facility]) COMPREHENSIVE METABOLIC PANEL, PLASMA Routine 09/25/2024 10:23 AM EDT CML (chronic myelocytic leukemia) ([facility]/HCC) CBC WITH AUTO DIFFERENTIAL Routine 09/25/2024 10:23 AM EDT CML (chronic myelocytic leukemia) ([facility]) CBC WITH AUTO DIFFERENTIAL STAT 09/11/2024 3:05 [...] :40 PM EDT CML (chronic myelocytic leukemia) ([facility]) PREPARE PLATELETS Routine 09/10/2024 2:0 6 PM EDT CML (chronic myelocytic leukemia) ([facility]) QUANT DETECTION OF BCR-ABL1 MAJOR (P210) (SO) Routine 09/10/2024 11:12 AM EDT CML (chronic myelocytic leukemia) ([facility]) LIPASE, PLASMA Routine 09/10/2024 11:12 AM EDT CML (chronic myelocytic leukemia) ([facility]) AMYLASE, PLASMA Routine 09/10/2024 11:12 AM EDT CML (chronic myelocytic leukemia) ([facility]) PHOSPHORUS, PLASMA Routine 09/10/2024 11 :12 AM EDT CML (chronic myelocytic leukemia) ([facility]) MAGNESIUM, PLASMA Routine 09/10/2024 11: [...] Recently Relevant to Health Maintenance Results * BILL ONLY HLA NGS High Resolution Typing NMDP Donor (RESEARCH ONLY) (10/16/2024 12:16 PM EDT) Only the most recent of3 resultswithin the time period is included. Blood Venous blood specimen / Unknown 10/16/2024 12:16 PM EDT 10/18/2024 3:23 PM EDT Dary Vincent APRN LAB BLOOD ORDERABLES Final Result Performing Organization Address [facility]/ZIP Co de Phone Number [facility] [address] * (ABNORMAL) RPR Screening with Rflex to Titer (10/08/2024 9:39 AM EDT) Pathologist [facility] Rapid Plasma Reagin Reactive( A) Non Reactive 10/09/2024 1:33 AM EDT [facility] Blood Venous blood specimen / Unknown Venipuncture / Unknown 10/08/2024 9:39 AM EDT 10/08/2024 9:57 AM EDT Mk Pastrana MD LAB BLOOD ORDERABLES Final Re sult Performing Organization Address City/[facility]/ZIP Co de Phone Number [facility] [address] [place] [address] * (ABNORMAL) Treponema Pallidum (Syphilis) Antibodies with Reflex to RPR and RPR Titer (Those with NOknown Syphilis) (10/08/2024 9:39 AM EDT) Pathologist [facility] Syphilis Antibody (IgG+IgM) Reactive( A) Nonreactive 10/08/2024 12:31 PM EDT [facility] Comment:Result suggests infe ction with [...] ORDERABLES Final Re sult Performing Organization Address [facility]/ZIP Co de Phone Number [facility] [address] [place] [address] * (ABNORMAL) RPR Titer (10/08/2024 9:39 AM EDT) [facility] RPR Titer Pos 1:1(A) <1:1 10/09/2024 2:18 AM EDT [facility] Blood Venous blood specimen / Unknown Venipuncture / Unknown 10/08/2024 9:39 AM EDT 10/08/2024 9:57 AM EDT Mk Pastrana MD LAB BLOOD ORDERABLES Final Re sult Performing Organization Address [facility] [[email or web address]] de Phone Number [facility] [address] [place] [address] * (ABNORMAL) CBC and Differential (10/08/2024 9:39 AM EDT) Only the most recent of7 resultswithin the time period is included. [facility] WBC Count 2.43(L) 3.70 - 10.30 10*3/uL LAB HEMATOLOGY METHOD 10/08/2024 10:04 AM EDT [facility] RBC Count 3.97 3.90 - 5.20 10*6/uL LAB HEMATOLOGY METHOD 10/08/2024 10:04 AM EDT [facility] HGB 12.9 11.2 - 15.7 g/dL LAB HEMATOLOGY METHOD 10/08/2024 10:04 AM EDT [facility] HCT 39.2 34.0 - 45.0 % LAB HEMATOLOGY METHOD 10/08/2024 10:04 AM EDT [facility] Platelet Count 124(L) 155 - 369 10*3/uL LAB HEMATOLOGY METHOD 10/08/2024 10:04 AM EDT [facility] MCV 99(H) 79 - 98 fL LAB HEMATOLOGY METHOD 10/08/2024 10:04 AM EDT [facility] MCH 32.5(H) 26.0 - 32.0 pg LAB HEMATOLOGY METHOD 10/08/2024 10:04 AM EDT [facility] MCHC 32.9 30.7 - 35.5 g/dL LAB HEMATOLOGY METHOD 10/08/2024 10:04 AM EDT [facility] RDW 17.5(H) 11.5 - 14.5 % LAB HEMATOLOGY METHOD 10/08/2024 10:04 AM EDT [facility] MPV 10.7 8.8 - 12.5 fL LAB HEMATOLOGY METHOD 10/08/2024 10:04 AM EDT [facility] nRBC 0.0 <=0.0 per 100 WBCs LAB HEMATOLOGY METHOD 10/08/2024 10:04 AM EDT [facility] Differential Type Automated LAB HEMATOLOGY METHOD 10/08/2024 10:04 AM EDT [facility] Neutrophils % 38 % LAB HEMATOLOGY METHOD 10/08/2024 10:04 AM EDT [facility] Lymphocytes % 51 % LAB HEMATOLOGY METHOD 10/08/2024 10:04 AM EDT [facility] Monocytes % 8 % LAB HEMATOLOGY METHOD 10/08/2024 10:04 AM EDT [facility] Eosinophils % 1 % LAB HEMATOLOGY METHOD 10/08/2024 10:04 AM EDT [facility] Basophils % 1 % LAB HEMATOLOGY METHOD 10/08/2024 10:04 AM EDT [facility] Immature Granulocytes % 1 % LAB HEMATOLOGY METHOD 10/08/2024 10:04 AM EDT [facility] Neutrophils Absolute 0.92(LL) 1.60 - 6.10 10*3/uL LAB HEMATOLOGY METHOD 10/08/2024 10:04 AM EDT [facility] Lymphocytes Absolute 1.25 1.20 - 3.90 10*3/uL LAB HEMATOLOGY METHOD 10/08/2024 10:04 AM EDT [facility] Monocytes Absolute 0.19(L) 0.30 - 0.90 10*3/uL LAB HEMATOLOGY METHOD 10/08/2024 10:04 AM EDT [facility] Eosinophils Absolute 0.02 0.00 - 0.50 10*3/uL LAB HEMATOLOGY METHOD 10/08/2024 10:04 AM EDT [facility] Basophils Absolute 0.03 0.00 - 0.10 10*3/uL LAB HEMATOLOGY METHOD 10/08/2024 10:04 AM EDT [facility] Immature Granulocytes Absolute 0.02 0.00 - 0.06 10*3/uL LAB HEMATOLOGY METHOD 10/08/2024 10:04 AM EDT [facility] Blood Venous blood specimen / Unknown Venipuncture / Unknown 10/08/2024 9:39 AM EDT 10/08/2024 9:58 AM EDT Narrative HEALTHCARE LAB - 10/08/2024 10:04 AM EDT Therapeutic decision making should be based on absolute values, rather than percentages. Mk Pastrana MD LAB BLOOD ORDERABLES Final Re sult Performing Organization Address City/[facility] Co de Phone Number [facility] [address] [place] [address] * Lipase, Plasma (10/08/2024 9:39 AM EDT) Only the most recent of4 resultswithin the time period is included. Lipase, Plasma 31 19 - 63 U/L 10/08/2024 10:32 AM EDT [facility] Blood Venous blood specimen / Unknown Venipuncture / Unknown 10/08/2024 9:39 AM EDT 10/08/2024 9:57 AM EDT Mk Pastrana MD LAB BLOOD ORDERABLES Final Re sult Performing Organization Address [facility] [[email or web address]] [place] [address] * Lactate Dehydrogenase, Plasma (10/08/2024 9:39 AM EDT) Only the most recent of5 resultswithin the time period is included. LDH, Plasma 238 116 - 250 U/L 10/08/2024 10:32 AM EDT [facility] Comment:Hemolyzed, result ma y be falsely increased. Blood Venous blood specimen / Unknown Venipuncture / Unknown 10/08/2024 9:39 AM EDT 10/08/2024 9:57 AM EDT Mk Pastrana MD LAB BLOOD ORDERABLES Final Re sult Performing Organization Address [facility]/ZIP Co de Phone Number [facility] [address] [place] [address] * Amylase, Plasma (10/08/2024 9:39 AM EDT) Only the most recent of4 resultswithin the time period is included. Amylase 43 27 - 114 U/L 10/08/2024 10:32 AM EDT [facility] Blood Venous blood specimen / Unknown Venipuncture / Unknown 10/08/2024 9:39 AM EDT 10/08/2024 9:57 AM EDT us Mk Pastrana MD LAB BLOOD ORDERABLES Final Re sult [facility] [address] [place] [address] * Comprehensive Metabolic Panel, Plasma (10/08/2024 9:39 AM EDT) Only the most recent of5 resultswithin the time period is included. Glucose, Plasma 90 74 - 99 mg/dL 10/08/2024 10:32 AM EDT [facility] BUN, Plasma 10 7 - 21 mg/dL 10/08/2024 10:32 AM EDT [facility] Creatinine, Plasma 0.65 0.60 - 1.10 mg/dL 10/08/2024 10:32 AM EDT [facility] BUN/Creatinine Ratio 15 10/08/2024 10:32 AM EDT [facility] Sodium, Plasma 142 136 - 145 mmol/L 10/08/2024 10:32 AM EDT [facility] Potassium, Plasma 4.3 3.6 - 4.9 mmol/L 10/08/2024 10:32 AM EDT [facility] Chloride, Plasma 107 97 - 107 mmol/L 10/08/2024 10:32 AM EDT [facility] CO2, Plasma 22 22 - 29 mmol/L 10/08/2024 10:32 AM EDT [facility] Anion Gap 13 6 - 16 mmol/L 10/08/2024 10:32 AM EDT [facility] Total Calcium, Plasma 9.5 8.9 - 10.2 mg/dL 10/08/2024 10:32 AM EDT [facility] Total Protein 7.5 6.3 - 7.9 g/dL 10/08/2024 10:32 AM EDT [facility] Albumin, Plasma 4.8 3.5 - 5.2 g/dL 10/08/2024 10:32 AM EDT [facility] AST, Plasma 22 10 - 35 U/L 10/08/2024 10:32 AM EDT [facility] ALT, Plasma 21 10 - 35 U/L 10/08/2024 10:32 AM EDT [facility] Alkaline Phosphatase, Plasma 104 35 - 104 U/L 10/08/2024 10:32 AM EDT [facility] Total Bilirubin, Plasma 1.0 0.2 - 1.1 mg/dL 10/08/2024 10:32 AM EDT [facility] eGFRcr 106.1 mL/min/1.7 3m*2 10/08/2024 10:32 AM EDT [facility] Comment:Reported eGFRcr in m L/min/1.73m2 is based the CKD-EPI 2020 equation that does not use a race coefficient. Blood Venous blood specimen / Unknown Venipuncture / Unknown 10/08/2024 9:39 AM EDT 10/08/2024 9:57 AM EDT us Mk Pastrana MD LAB BLOOD ORDERABLES Final Re sult [facility] [address] [place] [address] * Bill Only Isoagglutinin Titer (10/07/2024 10:00 AM EDT) Only the most recent of2 resultswithin the time period is included. Blood Bank Lab Only (Blood Bank Lab Only) 10/07/2024 10:00 AM EDT 10/14/2024 7:26 AM EDT us Moises Estrada MD LAB BLOOD BANK TEST ORDERAB LES Final Result BLOOD BANK [address] [place] [address], [place] * Bill Only Type & Screen (10/07/2024 10:00 AM EDT) Only the most recent of2 resultswithin the time period is included. Blood Bank Lab Only (Blood Bank Lab Only) 10/07/2024 10:00 AM EDT 10/14/2024 7:26 AM EDT Moises Estrada MD LAB BLOOD BANK TEST ORDERAB LES Final Result Performing Organization Address [facility] Co de Phone Number BLOOD BANK [address] [place] [address], [place] * HLA Typing, Donor (HLATWD) (10/07/2024 10:00 AM EDT) Only the most recent of2 resultswithin the time period is included. HLA Lab Only (HLA Lab Only) 10/07/2024 10:00 AM EDT 10/10/2024 3:24 PM EDT Dary Vincent APRN LAB BLOOD ORDERABLES Final Result Performing Organization Address [facility] Phone Number [facility] [address] [place] [address], [place] * BIOPSY BONE MARROW (10/03/2024 9:00 [...] to surronding structures. Alternatives discussed: Delayed treatment [place] protocol: Procedure explained and questions answered to [...] at the site and an 11 gauge Invision.comshidi needle was inserted into the left posterior [...] detected on 06/15/2023. Gene: DNMT3A Mutation: c.1208delA; p.Emv726VodcuDid8 Allele Frequency (%): 43% Gene: ASXL1 Mutation: c.1934dupG; p.[id number] Allele Frequency (%): 26% ID: [id number] Gene: BCOR Mutation: c.4936delC; p.[id number] 8 Allele Frequency (%): 11% Additional Details on Mutation Identified: Gene Transcript Genome Chrom Coordinate RefVar DNMT3A [id number] Hg19 2 [id number] Jose ASXL1 [id number] Hg19 20 [id number] dupG BCOR [id number] Hg19 X [id number] delC 10/14/2024 5:04 PM EDT [facility] Methodology The following 50 genes were [...] then sequenced on the Illumina NextSeq 2000 ([employer], [place]). A custom bioinformatics pipeline aligns [...] of hematologic malignancies. 10/14/2024 5:04 PM EDT [facility] Disclaimer This test was developed and its performance characteristics determined by the Clinical Molecular and Genomic Pathology Laboratory at the [facility]. It has not been cleared or [...] clinical laboratory testing. 10/14/2024 5:04 PM EDT [facility] Pathologist Signature Reviewed by: Og Duque 10/14/2024 5:04 PM EDT [facility] Bone Marrow Specimen from bone marrow obtained by aspiration / Unknown Non-blood Collection / Unknown 10/03/2024 8:48 AM EDT 10/03/2024 10:21 AM EDT us Mk Pastrana MD LAB MOLECULAR DIAGNOSTICS ORD ERABLES Final Result [facility] [address] [id number], * FISH, Oncology (10/03/2024 8:48 AM EDT) Specimen Type Bone Marrow 10/10/2024 2:57 PM EDT [facility] Clinical Indication Chronic Myelogenous Leukemia 10/10/2024 2:57 PM EDT [facility] Specimen Adequacy Adequate 025 2:57 PM EDT [facility] Interpretation ABL1/ASS1/BCR FISH: IMPRESSION: ABNORMAL [...] cells with an additional copies of the [place] chromosome. Gain of a Ph chromosome is one of the common additional cytogenetic abnormalities (ACAs) in CML. Additional chromosomal abnormalities (ACAs) are frequent in CML patients, and are considered a hallmark of multistep disease progression, associated with an adverse prognostic effect during the progressive or advanced stages of CML (Marlee TUCKER et al., 2019. PMID: [id number]). 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 Clinical correlation is recommended. 10/10/2024 2:57 PM EDT [facility] ISCN nuc hilda(ABL1x3,ASS1x2, BCRx3)(ABL1 con ASS1x1)(ABL1 con ASS1 con BCRx1)(ABL1 con BCRx1)[144/200]/(A BL1x5,ASS1x4,BCRx5 )(ABL1 con ASS1x2)(ABL1 con ASS1 con BCRx2)(ABL1 con BCRx2)[5200]/(ABL 1x6,ASS1x4,BCRx6)( ABL1 con ASS1x2)(ABL1 con ASS1 con BCRx2)(ABL1 con BCRx2)[5200]/(ABL 1x4,ASS1x2,BCRx5)( ABL1 con ASS1x1)(ABL1 con ASS1 con BCRx1)(ABL1 con BCRx2)[1200]/(ABL 1x5,ASS1x4,BCRx4)( ABL1 con ASS1x2)(ABL1 con ASS1 con BCRx2)(ABL1 con BCRx1)[1200]/(ABL 1x5,ASS1x3,BCRx5)( ABL1 con ASS1x2)(ABL1 con ASS1 con BCRx1)(ABL1 con BCRx2)[1200] METHOD: Fluorescence in situ hybridization (FISH) was performed using 3 Vysis/Segundo fluorescent labeled probes which hybridize to the following chromosomal regions: ABL1(9q34), ASS1(9q34) and BCR(22q11.2). One metaphase cell was analyzed and probe location was confirmed for these assays. At least one metaphase cell and 200 interphase cells are analyzed for a complete FISH test, and indirect sales representative images were captured and stored using [employer] software ([employer] The normal controls ran in parallel with this specimen gave the expected hybridization results. The normal cutoffs for bone marrow and peripheral blood for marrow have been established in this lab by probe validation. 10/10/2024 2:57 PM EDT [facility] Disclaimer This test was developed and its performance characteristics determined by the [facility]. It has not been [...] perform high complexity clinical laboratory testing. See [id number] for the chromosome analysis results on this specimen. 10/10/2024 2:57 PM EDT [facility] Pathologist Signature Reviewed by: Og Duque 10/10/2024 2:57 PM EDT [facility] Bone Marrow Non-blood Collection / Unknown 10/03/2024 8:48 AM EDT 10/03/2024 10:49 AM EDT us Mk Pastrana MD LAB CYTOGENETICS ORDERABLES F inal Result [facility] [address] [place] [address] * Chromosome Karyotype, Oncology (10/03/2024 8:48 AM EDT) Specimen Type Bone Marrow 10/10/2024 5:48 PM EDT [facility] Clinical Indication Chronic Myelogenous Leukemia 10/10/2024 5:48 PM EDT [facility] Specimen Adequacy Adequate 025 5:48 PM EDT [facility] Chromosome Analysis Result Giemsa-banded metaphase cells from unstimulated bone marrow cultures showed the following chromosome pattern: 46,XX,t(9;22)(q 34.1;q11.2)[13] /47,XX,idem,+8[ 7] 10/10/2024 5:48 PM EDT [facility] Interpretation Abnormal female chromosome analysis. [...] achieve complete cytogenetic and molecular remission (Cross TNP et al., 2022. PMID: [id number]). These findings also indicate progression of current condition. Clinical correlation is recommended. Note: Per [employer] (CAP) requirement additional karyotypes were performed and charged due to the presence of clonal abnormalities. See [id number] for the FISH analysis results. # cells counted = 20 # cells analyzed = 20 # cells karyotyped = 4 Band resolution: 400-425 10/10/2024 5:48 PM EDT [facility] Pathologist Signature Reviewed by: Og Duque 10/10/2024 5:48 PM EDT [facility] Bone Marrow Non-blood Collection / Unknown 10/03/2024 8:48 AM EDT 10/03/2024 10:49 AM EDT Mk Pastrana MD LAB CYTOGENETICS ORDERABLES F inal Result [facility] [address] [place] [address] * Leukemia/Lymphoma - Immunophenotyping by Flow Cytometry (10/03/2024 8:48 AM EDT) Clinical Indication CML 10/03/2024 1:16 PM EDT [facility] Flow Cytometry Interpretation MIXED MARROW ELEMENTS WITHOUT EVIDENCE OF INCREASED BLASTS OR ABNORMAL LYMPHOID POPULATIONS, BONE MARROW ASPIRATE. 10/03/2024 1:16 PM EDT [facility] Comments Specimen viability is 88%. [...] lymphoid populations. Final interpretation requires morphologic correlation ([id number]). The following antibodies were used in this analysis: CD45, CD2, CD3, CD4, CD5, CD7, CD8, CD10, CD13, CD14, CD15, CD16, CD19, CD20, CD33, CD34, CD38, CD56, CD117, HLA-DR, kappa surface light chains, lambda surface light chains 10/03/2024 1:16 PM EDT [facility] Disclaimer This test was developed and its performance characteristics determined by the Immuno-Molecular Pathology Laboratory at the [facility]. It has not been cleared or [...] clinical laboratory testing. 10/03/2024 1:16 PM EDT [facility] Pathologist Signature Reviewed by: Kathi Soria MD 10/03/2024 1:16 PM EDT [facility] MRD Indicated Test Not Indicated 1:16 PM EDT [facility] Bone Marrow Specimen from bone marrow obtained by aspiration / Unknown Non-blood Collection / Unknown 10/03/2024 8:48 AM EDT 10/03/2024 10:18 AM EDT Mk Pastrana MD LAB FLOW CYTOMETRY ORDERABLES Final Result [facility] [address] [place] [address] * Bone marrow exam (10/03/2024 8:48 AM EDT) Case Report Bone Marrow Case: [id number] Authorizing Provider: Mk Pastrana MD Collected: 10/03/2024 0848 Ordering Location: [facility] Hematology/BMT and Received: 10/03/2024 0954 Cellular Therapy Program Pathologist: Kathi Soria MD Specimens: A) - Bone Marrow Aspirate, left B) - Bone Marrow Biopsy, left C) - Peripheral Blood for Bone Marrow 3:18 PM EDT [facility] Final Diagnosis BONE MARROW, LEFT POSTERIOR ILIAC CREST, (PERIPHERAL SMEAR, ASPIRATE SMEARS, AND CORE BIOPSY): -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 - MILD RETICULIN FIBROSIS (PATCHY GRADE 1); NO INCREASE IN BLASTS, SEE COMMENT. 3:18 PM EDT [facility] at 1518 EDT Comment The patient has a history of chronic myeloid leukemia, and accompanying karyotype on prior specimen showed the presence of the [place] chromosome ([id number]). In the current specimen, erythroid precursors show megaloblastoid changes. Granulopoiesis is reduced and left-shifted. Megakaryocytes are increased in some of the aspirate spicules and exhibit small hypolobated forms. There is no evidence of increased blasts or increased fibrosis in the current specimen. Clinical correlation is recommended. 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 3:18 PM EDT [facility] Bone Marrow Differential BONE MARROW DIFFERENTIAL: 300 cells Normal Patient Neutrophils 15-50 9 Metamyelocytes 4-19 9 Myelocytes 1-18 13 Promyelocytes 1-8 10 Blasts 0-2 1 Monocytes 0-5 2 Erythroid 16-38 50 Lymphocytes 3-24 2 Eosinophils 0-6 2 Basophils 0-2 1 Plasma cells 0-4 1 Other 3:18 PM EDT [facility] Bone Marrow Aspirate and Biopsy [...] trabeculae are unremarkable. 5 3:18 PM EDT [facility] Special and Immunohistochemical Stains Immunohistochemica [...] developed by and are performed at the [facility], [address] [place] [address]. All tests reported here, except those addressing [...] negativity on decalcified specimens. 3:18 PM EDT [facility] Flow Cytometry Interpretation MIXED MARROW ELEMENTS WITHOUT EVIDENCE OF INCREASED BLASTS OR ABNORMAL LYMPHOID POPULATIONS, BONE MARROW ASPIRATE ([id number]). 3:18 PM EDT [facility] CYTOGENETICS/MOLECUL AR INTERPRETATION Correlation with cytogenetics/FISH/ molecular analysis is suggested. 3:18 PM EDT [facility] Gross Description B. LEFT A single specimen is received in formalin labeled bone marrow biopsy left posterior iliac crest and consists of 2 piece(s) of red/white tissue measuring 0.4/0.6 cm in length 0.2 cm in diameter. The specimen is submitted in to Histology for decalcification and routine processing. Cold Time: 1m 3:18 PM EDT [facility] Note: A resident was involved in the service. I attest I examined the relevant preparations for the specimens and confirmed the diagnosis or interpretation. 3:18 PM EDT [facility] Bone Marrow Peripheral blood specimen [...] MD LAB PATHOLOGY ORDERABLES Nani smith Result Performing Organization Address City/State/[place] Co de Phone Number [facility] [address] [place] [address] * Pulmonary function testing (09/25/2024 4:31 PM EDT) [id number] 3.21 L 09/25/2024 4:28 PM EDT VYAIRE [...] 1.98 09/25/2024 4:28 PM EDT VYAIRE PFT JZB1AVOHBPZRK -0.62 09/25/2024 4:28 PM EDT VYAIRE PFT FEV1_Pre%Pred 92 % % 09/25/2024 4:28 PM EDT VYAIRE PFT FEV1 PREDAUTH US_Quanjer GLI (2011) 09/25/2024 4:28 PM EDT VYAIRE PFT FEV1 Z-SCORE -0.62 09/25/2024 4:28 PM EDT VYAIRE PFT FEV1/FVC PRE 73.32 % 09/25/2024 4:28 PM EDT VYAIRE PFT MKB1USBBZNB 81 09/25/2024 4:28 PM EDT VYAIRE PFT FEV1/FVC PRELLN 71 4:28 PM EDT VYAIRE PFT NAS5BRRSESSOPGVF -1.25 09/26/19 4:28 PM EDT VYAIRE PFT AQJ1YJUKFL%PRED 91 % % 4:28 PM EDT VYAIRE PFT TIU6XVGMVCEW US_Quanjer GLI (2011) 09/25/2024 4:28 PM EDT VYAIRE PFT KSB0RMSRYLQZB -1 09/25/2024 4:28 PM EDT VYAIRE PFT FWU88-54% PRE 1.73 L/s 09/25/2024 4:28 PM EDT VYAIRE PFT RIP12-14%_Pred 2.51 09/25/2024 4:28 PM EDT VYAIRE PFT WNY34-16% PRELLN 1.38 09/26/19 4:28 PM EDT VYAIRE PFT GYJ1907%PREZSCORE -1.08 025 4:28 PM EDT VYAIRE PFT UFH5435%PRE%PRED 69 % % 09/26/19 4:28 PM EDT V[facility]AIRE PFT DEV2423%[facility] _Gordojedalia GLI (2011) 09/25/2024 4:28 PM EDT VYAIRE PFT PEF PRE 6.46 L/s 09/25/2024 4:28 PM EDT VYAIRE PFT PEF PRED 6.35 09/25/2024 4:28 PM EDT VYAIRE PFT PEF PRELLN 4.87 09/25/2024 4:28 PM EDT VYAIRE PFT PEFPREZSCORE 0.12 09/25/2024 4:28 PM EDT VYAIRE PFT PEFPRE%PRED 102 % % 09/25/2024 4:28 PM EDT [facility]YAIRE PFT [facility]F [facility] ECCS (1992) 09/25/2024 4:28 PM EDT VYAIRE PFT IWSPFMUFHTIKJBIV0NYL 13.30 ml/(min* mmHg) 09/25/2024 4:28 PM EDT VYAIRE PFT DLCOSINGLEBREATH PRED 20.70 09/25/2024 4:28 PM EDT VYAIRE PFT DLCOSINGLEBREATH LLN 16.09 09/08 4:28 PM EDT VYAIRE PFT DLCOSINGLEBREATH Z-SCORE -2.83 09/25/2024 4:28 PM EDT VYAIRE PFT DLCOSINGLEBREATH % PRED 64.2 % 09/25/2024 4:28 PM EDT VYAIRE PFT DLCOSINGLEBREATH [facility] Stanojevic TLCO GLI (2019) 09/25/2024 4:28 PM EDT VYAIRE PFT DLCOSINGLEBREATH Z-SCORE -2.83 09/25/2024 4:28 PM EDT VYAIRE PFT VWALIDBPZUXCBSAQL2SQ E 13.88 ml/(min* mmHg) 09/25/2024 4:28 PM EDT VYAIRE PFT DLCOCSINGLEBREATH PRED 20.70 09/25/2024 4:28 PM EDT VYAIRE PFT DLCOCSINGLEBREATH LLN 16.09 09/25/2024 4:28 PM EDT VYAIRE PFT DLCOCSINGLEBREATH Z-SCORE -2.56 09/25/2024 4:28 PM EDT VYAIRE PFT DLCOCSINGLEBREATH % PRED 67.1 % 09/25/2024 4:28 PM EDT VYAIRE PFT DLCOCSINGLEBREATH PREDAUTH Stanojevonvic TLCO GLI (2019) 09/25/2024 4:28 PM EDT VYAIRE PFT OATGHI7ZUE 2.90 ml/(min* mmHg*L) 09/25/2024 4:28 PM EDT VYAIRE PFT DLCOVAPRED 4.27 09/25/2024 4:28 PM EDT VYAIRE PFT DLCOVALLN 3.33 09/25/2024 4:28 PM EDT VYAIRE PFT DLCOVAZSCORE -2.47 09/25/2024 4:28 PM EDT VYAIRE PFT DLCOVA%PRED 68.0 % 09/25/2024 4:28 PM EDT VYAIRE PFT DLCOVAPREDAUTH Stanojevonvic TLCO GLI (2019) 09/25/2024 4:28 PM EDT VYAIRE PFT DLCOVAZSCORE -2.47 09/25/2024 4:28 PM EDT VYAIRE PFT KHLBAOQUS6SEE 3.03 ml/(min* mmHg*L) 09/25/2024 4:28 PM EDT VYAIRE PFT DLCOC SB/VA PRED 4.27 09/26/19 4:28 PM EDT VYAIRE PFT DLCOC SB/VA LLN 3.33 4:28 PM EDT VYAIRE PFT DLCOC SB/VA Z-SCORE -2.21 09/25 4:28 PM EDT VYAIRE PFT DLCOC SB/VA % PRED 71.0 % 2024 4:28 PM EDT VYAIRE PFT DLCOC SB/VA PREDAUT Stanojevic TLCO GLI (2019) 09/25/2024 4:28 PM EDT VYAIRE PFT DLCOC SB/VA Z-SCORE -2.21 09/25 4:28 PM EDT VYAIRE PFT CUCZNNYZOLQJRS0YNG 4.58 L 2024 4:28 PM EDT VYAIRE PFT VASINGLEBREATH PRED 4.88 09/25 4:28 PM EDT VYAIRE PFT VASINGLEBREATH LLN 3.98 2024 4:28 PM EDT VYAIRE PFT VASINGLEBREATH Z-SCORE -0.52 09/25/2024 4:28 PM EDT VYAIRE PFT VASINGLEBREATH % PRED 94.0 % 09/25/2024 4:28 PM EDT VYAIRE PFT VASINGLEBREATH [facility] Stanojevic TLCO GLI (2019) 09/25/2024 4:28 PM EDT VYAIRE PFT VASINGLEBREATH Z-SCORE -0.52 09/25/2024 4:28 PM EDT VYAIRE PFT EPELLXXYKBFRXEX6KWZ 3.10 L 09/25 4:28 PM EDT VYAIRE PFT IVCSINGLEBREATH PRED 3.18 09/08 4:28 PM EDT VYAIRE PFT IVCSINGLEBREATH LLN 2.51 09/25 4:28 PM EDT VYAIRE PFT IVCSINGLEBREATH Z-SCORE -0.19 09/25/2024 4:28 PM EDT VYAIRE PFT IVCSINGLEBREATH % PRED 97.5 % 09/25/2024 4:28 PM EDT VYAIRE PFT IVCSINGLEBREATH [facility] US_Quanjer GLI (2011) 09/25/2024 4:28 PM EDT VYAIRE PFT HB PRE 12.10 g(Hb)/dL 09/25/2024 4:28 PM EDT VYAIRE PFT NHS8NFS 5.21 L 09/25/2024 4:28 PM EDT VYAIRE [...] (2019)__ 09/25/2024 4:28 PM EDT VYAIRE PFT KXEEPHKZ3BOJ 2.74 L 09/25/2024 4:28 PM EDT VYAIRE [...] (2019)__ 09/25/2024 4:28 PM EDT VYAIRE PFT BMM7VGF 0.68 L 09/25/2024 4:28 PM EDT VYAIRE [...] (2019)__ 09/25/2024 4:28 PM EDT VYAIRE PFT RV%HPS2RCI 38.52 % 09/25/2024 4:28 PM EDT VYAIRE PFT RV%TLCPRED 30 09/25/2024 4:28 PM EDT VYAIRE PFT RV%TLCLLN 19 09/25/2024 4:28 PM EDT VYAIRE PFT RV%TLCULN 41 09/25/2024 4:28 PM EDT VYAIRE PFT RV%TLCZSCORE 1.32 09/25/2024 4:28 PM EDT VYAIRE PFT RV%TLC%PRED 130.0 % 09/25/2024 4:28 PM EDT VYAIRE PFT RV%TLCPREDAUTH Palm Lung volumes GLI (2019)__ 09/25/2024 4:28 PM EDT VYAIRE PFT GIM8NKV 2.89 L 09/25/2024 4:28 PM EDT VYAIRE PFT Anatomical Region Laterality Modality PFT 09/25/2024 3:47 PM EDT Narrative 09/30/2024 8:27 AM EDT Pulmonary Function Testing Report Amita Ortiz 54 y.o. underwent pulmonary function testing today at the [facility]. The patient underwent spirometry, lung volumes [...] W/ STRAIN, 3D (09/25/2024 2:54 PM EDT) [facility] BSA 1.67 m2 WINDY ISCV Height 165.0 [...] Root Diam 32 mm WINDY ISCV PA IL(ACCEL) 18.7 mmHg WINDY ISCV LV Lat e' [...] is no recent study available for direct updb-ii-bvcd comparison. Left Ventricle The left ventricle is [...] is no recent study available for direct deuw-hk-deev comparison. Mk Pastrana MD CV ECHO PROCEDURES [...] ECG Atrial Rate 72 BPM MUSE ECG IL Interval 122 ms MUSE ECG QRSD Interval 64 ms MUSE ECG QT Interval 406 ms MUSE ECG QTC Interval 444 ms MUSE ECG P [place] 71 degrees MUSE ECG R [place] 54 degrees MUSE ECG T Wave [place] 87 degrees MUSE ECG Diagnosis Normal sinus rhythm MUSE ECG Diagnosis Low voltage QRS MUSE ECG Diagnosis Borderline ECG MUSE ECG Diagnosis MUSE ECG Diagnosis Confirmed by Arsalan Ko ([id number]) on 09/25/2024 11:05:04 AM MUSE ECG 09/25/2024 10:3 8 AM EDT 09/25/2024 11:05 AM EDT us Mk Pastrana MD ECG ORDERABLES Final Result MUSE ECG * Stanislaw Benedict Virus (EBV) Quantitative PCR (09/25/2024 10:23 AM EDT) Stanislaw Benedict Virus, Blood, Quant DNA Interpretation Not Detected Not Detected 10/01/2024 6:35 AM EDT [facility] Blood Venous blood specimen / Unknown Venipuncture / Unknown 09/25/2024 10:23 AM EDT 09/25/2024 10:34 AM EDT Narrative [facility] - 10/01/2024 6:35 AM [...] developed and it's performance characteristics determined by [facility] as appropriate for clinical purposes. [...] developed and it's performance characteristics determined by [facility] as appropriate for clinical purposes. This assay has not been cleared or approved by the FDA, but is performed in a CLIA regulated laboratory that is qualified to perform high-complexity testing. Mk Pastrana MD LAB BLOOD ORDERABLES Final Re sult Performing Organization Address [facility]/[place] Co de Phone Number [facility] [address] [place] [address] * (ABNORMAL) Creatinine Clearance, 24 Hour Urine (09/25/2024 10:23 AM EDT) Hours Of Collection 24 HRS 09/25/2024 11:25 AM EDT [facility] Urine, Volume 200 mL 09/25/2024 11:25 AM EDT [facility] Creatinine, Urine 201 mg/dL 09/25/2024 11:25 AM EDT [facility] Creatinine, Plasma 0.65 0.60 - 1.10 mg/dL 09/25/2024 11:25 AM EDT [facility] Creatinine Clearance 42.95(L) 66.00 - 108.00 mL/min 09/25/2024 11:25 AM EDT [facility] Creatinine per day, Urine 402(L) 500 - 1,600 mg/d 09/25/2024 11:25 AM EDT [facility] Urine Urine specimen obtained by clean catch procedure / Unknown Non-blood Collection / Unknown 09/25/2024 10:23 AM EDT 09/25/2024 10:24 AM EDT Mk Pastrana MD LAB URINE ORDERABLES Final Re sult Performing Organization Address [facility]/ZIP Co de Phone Number [facility] [address] [place] [address] * ABO/Rh Type (09/25/2024 10:23 AM EDT) ABO/Rh AB Positive 09/25/2024 10:12 AM EDT [facility] Blood Venous blood specimen / Unknown Venipuncture / Unknown 09/25/2024 10:23 AM EDT 09/25/2024 10:39 AM EDT Mk Pastrana MD LAB BLOOD BANK TEST ORDERABLE S Final Result Performing Organization Address [facility] [[email or web address]] de Phone Number BLOOD BANK [address] * Creatinine, Plasma (09/25/2024 10:23 AM EDT) Creatinine, Plasma 0.65 0.60 - 1.10 mg/dL 09/25/2024 11:17 AM EDT [facility] eGFRcr 106.1 mL/min/1.7 3m*2 09/25/2024 11:17 AM EDT [facility] Comment:Reported eGFRcr in m L/min/1.73m2 is based the CKD-EPI 2020 equation that does not use a race coefficient. Blood Venous blood specimen / Unknown Venipuncture / Unknown 09/25/2024 10:23 AM EDT 09/25/2024 10:34 AM EDT Mk Pastrana MD LAB BLOOD ORDERABLES Final Re sult Performing Organization Address City/[facility]/ZIP Co de Phone Number [facility] [address] [place] [address] * Toxoplasma gondii antibody, IgG (09/25/2024 10:23 AM EDT) TOXOPLASMA IGG AB 3.7 <=8.8 IU/mL 09/27/2024 1:29 AM EDT [facility] ([place] Blood Venous blood specimen / Unknown Venipuncture / Unknown 09/25/2024 10:23 AM EDT 09/25/2024 10:34 AM EDT Narrative [facility] ([place]) - 09/27/2024 1:29 AM EDT [...] the amount of antibody present. Performed By: [facility] [address] [place] [address] Viscera Washer: Sunil Gomez MD, PhD CLIA Number: [id number] Mk Pastrana MD LAB BLOOD ORDERABLES Final Re sult Performing Organization Address City/[facility]/ZIP Co de Phone Number [facility] ([place]) [address] [place] [id number] * APTT (09/25/2024 10:23 AM EDT) aPTT 28 25 - 35 sec LAB COAGULATION METHOD 09/25/2024 11:00 AM EDT [facility] Blood Venous blood specimen / Unknown Venipuncture / Unknown 09/25/2024 10:23 AM EDT 09/25/2024 10:34 AM EDT Mk Pastrana MD LAB BLOOD ORDERABLES Final Re sult [facility] [address] [place] [address] * Prothrombin Time/INR (09/25/2024 10:23 AM EDT) Prothrombin Time 12.7 12.0 - 14.3 sec LAB COAGULATION METHOD 09/25/2024 11:00 AM EDT [facility] INR 0.9 0.9 - 1.1 LAB COAGULATION METHOD 09/25/2024 11:00 AM EDT [facility] Blood Venous blood specimen / Unknown Venipuncture / Unknown 09/25/2024 10:23 AM EDT 09/25/2024 10:34 AM EDT Narrative [facility] - 09/25/2024 11:00 AM EDT OPTIMAL INR RANGES FOR PATIENT ON ORAL ANTICOAGULANT THERAPY Prevention of venous thromboembolism INR 2.0 to 3.0 In patients with heart disease: Atrial fibrillation INR 2.0 to 3.0 Valvular heart disease INR 2.0 to 3.0 Tissue heart valves INR 2.0 to 3.0 Mechanical prosthetic valves INR 2.5 to 3.5 Prevention of recurrent [place] INR 2.5 to 3.5 Mk Pastrana MD LAB BLOOD ORDERABLES Final Re sult Performing Organization Address City/[facility]/ZIP Co de Phone Number [facility] [address] [place] [address] * Thyroid Stimulating Hormone, Plasma (09/25/2024 10:23 AM EDT) Thyroid Stimulating Hormone, Plasma 1.01 0.40 - 4.20 uIU/mL 09/25/2024 11:17 AM EDT [facility] Blood Venous blood specimen / Unknown Venipuncture / Unknown 09/25/2024 10:23 AM EDT 09/25/2024 10:34 AM EDT Narrative [facility] - 09/25/2024 11:17 AM EDT Trimester Specific Ranges TSH ( IU/mL) 1st Trimester 0.1 - 3.0 2nd Trimester 0.19 - 4.06 3rd Trimester 0.3 - 3.7 Mk Pastrana MD LAB BLOOD ORDERABLES Final Re sult [facility] [address] [place] [address] * (ABNORMAL) Ferritin (09/25/2024 10:23 AM EDT) Ferritin, Serum 294(H) 13 - 150 ng/mL 09/25/2024 11:17 AM EDT [facility] Blood Venous blood specimen / Unknown Venipuncture / Unknown 09/25/2024 10:23 AM EDT 09/25/2024 10:35 AM EDT us Mk Pastrana MD LAB BLOOD ORDERABLES Final Re sult Performing Organization Address City/[facility]/ZIP Co de Phone Number [facility] [address] [place] [address] * Transfuse platelets, Irradiated (09/10/2024 4:03 PM EDT) Bhavana Bella APRN BLOOD TRANSFUSION ORDERABL ES Final Result * (ABNORMAL) Platelet Count, Blood (09/10/2024 3:41 PM EDT) Platelet Count 56(L) 155 - 369 10*3/uL LAB HEMATOLOGY METHOD 09/10/2024 3:45 PM EDT [facility] Blood Venous blood specimen / Unknown Venipuncture / Unknown 09/10/2024 3:41 PM EDT 09/10/2024 3:43 PM EDT Bhavana Bella APRN LAB BLOOD ORDERABLES Final Result Performing Organization Address [facility] Co de Phone Number [facility] [address] [place] [address] * Prepare Leukocyte Reduced Platelets: 1 Units, Irradiated, Leukoreduced (09/10/2024 2:06 PM EDT) Product Code [id number] CH BLOO D BANK Dispense Status Transfused BLOOD BANK Blood Expiration Date [id number] BLOOD BANK Unit Number [id number] CH B LOOD BANK Product Blood Type 6200 BLOOD BANK Blood Type A+ BLOOD BANK Blood Venous blood specimen / Unknown Bhavana Bella APRN BLOOD BANK PRODUCT ORDERAB LES Final Result Performing Organization Address [facility] Co de Phone Number BLOOD BANK [address] [place] [address], [place] * (ABNORMAL) Quant Detection of BCR-ABL1 Major (p210) (SO) (09/10/2024 11:12 AM EDT) Only the most recent of3 resultswithin the time period is included. Quant BCR-ABL1, Major (p210), Source Whole Blood 09/17/2024 9:43 AM EDT [facility] ([employer]) Quant BCR-ABL1, Major (p210), Result Detected(A ) 09/17/2024 9:43 AM EDT [facility] ([employer]) Quant BCR-ABL1, Major (p210), IS Percent 20.4857 % 09/17/2024 9:43 AM EDT [facility] ([employer]) Quant BCR-ABL1, Major (p210), EER See Note 09/17/2024 9:43 AM EDT [facility] ([employer]) Blood Venous blood specimen / Unknown Venipuncture / Unknown 09/10/2024 11:12 AM EDT 09/10/2024 11:39 AM EDT [facility] ([employer]) - 09/17/2024 9:43 AM EDT This result [...] (IS; see Zhu MC, et al. Leukemia. 2009;23:4023-5249). METHODOLOGY: Total RNA was isolated and converted [...] (provided by Garo Stahl MD; see Richelle TROTTER, et al. Blood. 2010;116:111-117) that was calibrated to a standard set of diagnostic specimens defined during the original trial of tyrosine kinase inhibitor therapy in CML patients (Ashlee CHÁVEZ, et al. NEJ. 2003;349:3009-7388). ANALYTICAL SENSITIVITY: Limit of quantification: 0.0032 percent [...] developed and its performance characteristics determined by [facility]. It has not been cleared or approved by the U.S. Food and Drug Administration. This test was performed in a CLIA-certified laboratory and is intended for clinical purposes. Authorized individuals can access the [employer] Enhanced Report with an [employer] Connect account using the following link. Your local lab can assist you in obtaining the patient report if you don't have a Connect account. [email or web address] Performed By: [facility] [address] [place] [address] Viscera Washer: Sunil Gomez MD, PhD CLIA Number: [id number] Elena Ledezma APRN LAB BLOOD ORDERABLES Final Res ult [facility] ([place]) [address] [place] [address] * Phosphorus, Plasma (09/10/2024 11:12 AM EDT) Only the most recent of3 resultswithin the time period is included. Phosphorus, Plasma 3.8 2.5 - 4.5 mg/dL 09/10/2024 12:10 PM EDT [facility] Blood Venous blood specimen / Unknown Venipuncture / Unknown 09/10/2024 11:12 AM EDT 09/10/2024 11:35 AM EDT us Elena Ledezma APRN LAB BLOOD ORDERABLES Final Res ult Performing Organization Address [facility]/ZIP Co de Phone Number [facility] [address] [place] [address] * Magnesium, Plasma (09/10/2024 11:12 AM EDT) Only the most recent of3 resultswithin the time period is included. Magnesium, Plasma 2.1 1.9 - 2.4 mg/dL 09/10/2024 12:10 PM EDT [facility] Blood Venous blood specimen / Unknown Venipuncture / Unknown 09/10/2024 11:12 AM EDT 09/10/2024 11:35 AM EDT us Elena Ledezma APRN LAB BLOOD ORDERABLES Final Res ult Performing Organization Address [facility] Co de Phone Number [facility] [address] [place] [address] * US Abdomen Focused Region Liver, Spleen [...] ( e 7 mm) - Surgical consult. https://pubs.rsna.org/doi/abs/10.1148/radiol.163462. CRITICAL RESULT: No. COMMUNICATION: Per this written [...] - Size - 4 mm Morphology: Pedunculated ifat-ii-loq-wall or thin stalk Focal adjacent wall thickening >4mm: not present Polyp # 2 - Size - 4 mm Morphology: Pedunculated bqek-ep-ahj-wall or thin stalk Focal adjacent wall thickening [...] - Size - 4 mm Morphology: Pedunculated jefr-hj-uiq-wall or thin stalk Focal adjacent wall thickening >4mm: not present Polyp # 2 - Size - 4 mm Morphology: Pedunculated chqy-wg-ufq-wall or thin stalk Focal adjacent wall thickening [...] ( e 7 mm) - Surgical consult. https://pubs.rsna.org/doi/abs/10.1148/radiol.799771. CRITICAL RESULT: No. COMMUNICATION: Per this written [...] IMG US PROCEDURES Final Resul t * HIV 1 & 2 Antibody/Antigen Screen (04/30/2024 12:49 PM EST) HIV 1 & 2 Antibody/Antigen Screen Non Reactive Non Reactive 04/30/2024 2:08 PM EST [facility] Comment:Screening for HIV 1 & 2 antibodies, and P24 antigen is NONREACTIVE. No confirmatory testing is required. Blood Venous blood specimen / Unknown Venipuncture / Unknown 04/30/2024 12:49 PM EST 04/30/2024 1:26 PM EST Mk Pastrana MD LAB BLOOD ORDERABLES Final Re sult Performing Organization Address [facility] Co de Phone Number [facility] [address] [place] [address] * (ABNORMAL) Hepatitis C antibody (04/30/2024 12:49 PM EST) Hepatitis C Antibody Positive( A) Negative 04/30/2024 2:16 PM EST [facility] Comment:This specimen is heidi ng sent for confirmation by RT-PCR. Blood Venous blood specimen / Unknown Venipuncture / Unknown 04/30/2024 12:49 PM EST 04/30/2024 1:27 PM EST Mk Pastrana MD LAB BLOOD ORDERABLES Final Re sult Performing Organization Address [facility]/ZIP Co de Phone Number [facility] [address] [place] [address] from Last 3 Months or Most Recently Relevant to Health Maintenance Insurance [facility] MEDICAID [place] MED[place]ID DENTAL [facility] MEDICAID Care Teams Audiometrist Relationship Specialty Start Date End Date Willi Frost MD [facility] [address] [place] [address] PCP - General 06/11/24
--- OUTSIDE RECORDS SUMMARY | 2024-10-22 12:27 | XMS_ITS | Encounter Summary ---
Author Organization [facility] Address [address] [place] [address] Care Team Providers Care Planer Hand Name Role Phone Willi Frost MD Primary Care Provider [phone] Encounter Details Date Type Department Care Team ([facility] st Contact Info) Description 10/14/2024 Telephone P[facility] CC Hematology/BMT and Cellular Therapy Program [address] [place] [address] Mk Pastrana MD 800 [facility] [address] [place] [phone] Social History Tobacco Use Types Packs/Day Years [...] Sims RN - 10/14/2024 9:02 AM EDT multimedia services coordinator called patient with update on plan of care. * Telephone Encounter - Michelle Sims RN - 10/14/2024 8:53 AM EDT RN returned call and reaching out to nursing unit coordinator for update. * Telephone Encounter - Terry Jay - 10/14/2024 8:39 AM EDT Callback Number: [phone] Patient calling with concerns about her catheter documented in this encounter Plan of Treatment Upcoming Encounters Date Type Department Care Team ([facility] st Contact Info) Description 10/30/2024 8:00 AM EDT Clinical Support [facility] Hematology/BMT and Cellular Therapy Program [address] [place] [phone] 10/30/2024 8:30 AM EDT Office Visit [facility] Hematology/BMT and Cellular Therapy Program [address] [phone] Radha Morelos, CREDENTIALER 800 [facility] [address] [place] [phone] 11/13/2024 1:00 PM EDT Office Visit [address] [phone] Verena Montes, SALVADOR [address] [place] [phone] 11/27/2024 1:30 PM EDT Clinical Support [facility] Hematology/BMT and Cellular Therapy Program [address] [phone] 11/27/2024 2:00 PM EDT Office Visit [facility] Hematology/BMT and Cellular Therapy Program [address] [phone] Mk Pastrana MD 800 [facility] [address] [place] [phone] documented as of this encounter Visit Diagnoses Not on filedocumented in this encounter Additional Health Concerns Assessment Noted Time A Body Mass Index follow-up plan has been documented for the patient 09/11/2024 6:12 PM EDT documented as of this encounter Care Teams Planer Hand Relationship Specialty Start Date End Date Willi Frost MD [address] [place] [address] [address] [place] [address] PCP - General 06/11/24 documented as of this encounter
--- OUTSIDE RECORDS SUMMARY | 2024-10-22 12:27 | XMS_ITS | Encounter Summary ---
Author Organization [facility] Address [address] [place] [address] Care Team Providers Care Bagger Meat Name Role Phone Willi Frost MD Primary Care Provider Encounter Details Date Type Department Care Team ([facility] Contact Info) Description 10/08/2024 Telephone PAV A Interventional Radiology [address] [place] [phone] Radha Mary, RN CH-VASCULAR & INTERVENTIONAL RADIOLOGY [...] Hematology/BMT and Cellular Therapy Program [address] [place] [phone] 10/30/2024 8:30 AM EDT Office Visit [facility] Hematology/BMT and Cellular Therapy Program [address] [place] [phone] Radha Morelos, BUS COMPANY MANAGER 800 [facility] [address] [place] [phone] 11/13/2024 1:00 PM EDT Office Visit [facility] [address] [place] [phone] Verena Montes PA 3101 [facility] [address] [place] [address] 11/27/2024 1:30 PM EDT Clinical Support [facility] Hematology/BMT and Cellular Therapy Program [address] [phone] 11/27/2024 2:00 PM EDT Office Visit [facility] Hematology/BMT and Cellular Therapy Program [address] [phone] Mk Pastrana MD 800 [facility] [address] [place] [phone] documented as of this encounter Visit Diagnoses Not on filedocumented in this encounter Additional Health Concerns Assessment Noted Time A Body Mass Index follow-up plan has been documented for the patient 09/11/2024 6:12 PM EDT documented as of this encounter Care Teams Bagger Meat Relationship Specialty Start Date End Date Willi Frost MD [facility] [address] [facility] [address] [place] [address] PCP - General 06/11/24 documented as of this encounter
--- OUTSIDE RECORDS SUMMARY | 2024-10-22 12:27 | XMS_ITS | Encounter Summary ---
Author Organization [facility] Address [address] [place] [address] Care Team Providers Care Assembly Machine Tool Setter Name Role Phone Willi Frost MD Primary Care Provider [phone] Reason for Referral * Imaging (Routine) - Authorized Specialty Diagnoses / Procedures Referred By Contac t Referred To Contact Radiology Diagnoses CML (chronic myelocytic leukemia) (CMS/HCC) Procedures IR Tunneled Central Venous Catheter Placement 5+ Years Consult to Interventional Radiology Mk Pastrana MD 800 [facility] [address] [place] [address] Phone: tel: fax: Referral ID Status Reason Start Date Expiration Date V isits Requested Visits Authorized [id number] Authorized 09/17/2024 03/19/2026 1 1 Encounter Details Date Type Department Care Team (Late st Contact Info) Description 09/17/2024 Orders Only [facility] CC Hematology/BMT and Cellular Therapy Program 750 [facility] [place] [address] Leo De Souza, RN [facility] CML (chronic myelocytic [...] Upcoming Encounters Date Type Department Care Team ([facility] st Contact Info) Description 10/30/2024 8:00 AM EDT Clinical Support [facility] CC Hematology/BMT and Cellular Therapy Program [address] [phone] 10/30/2024 8:30 AM EDT Office Visit [facility] Hematology/BMT and Cellular Therapy Program [address] [phone] Radha Morelos, MARCY 800 [facility] [address] [phone] 11/13/2024 1:00 PM EDT Office Visit [address] [phone] [place] [address] [place] [phone] 11/27/2024 1:30 PM EDT Clinical Support [facility] Hematology/BMT and Cellular Therapy Program [address] [phone] 11/27/2024 2:00 PM EDT Office Visit [facility] Hematology/BMT and Cellular Therapy Program [address] [phone] Mk Pastrana MD 800 [facility] [address] [place] [phone] Scheduled Orders Name Type Priority Associated Diagnoses [...] documented as of this encounter Care Teams Assembly Machine Tool Setter Relationship Specialty Start Date End Date Willi Frost MD [address] [place] [address] PCP - General 06/11/24 documented as of this encounter
--- OUTSIDE RECORDS SUMMARY | 2024-10-22 12:27 | XMS_ITS | Encounter Summary ---
Author Organization [facility] Address [address] [place] [address] Care Team Providers Care Tooth Inspector Name Role Phone Willi Frost MD Primary [...] Hematology/BMT and Cellular Therapy Program [address] [phone] 10/30/2024 8:30 AM EDT Office Visit [facility] Hematology/BMT and Cellular Therapy Program [address] [phone] Radha Morelos, OPERATIONS ASSOCIATE 800 [facility] [address] [place] [phone] 11/13/2024 1:00 PM EDT Office Visit [facility] [address] [place] [address] Verena Mnotes PA 3101 [facility] [address] [place] [address] 11/27/2024 1:30 PM EDT Clinical Support [facility] CC Hematology/BMT and Cellular Therapy Program [address] [phone] 11/27/2024 2:00 PM EDT Office Visit [facility] Hematology/BMT and Cellular Therapy Program [address] [phone] Mk Pastrana MD 800 [facility] [address] [place] [phone] documented as of this encounter Visit Diagnoses Not on filedocumented in this encounter Additional Health Concerns Assessment Noted Time A Body Mass Index follow-up plan has been documented for the patient 09/11/2024 6:12 PM EDT documented as of this encounter Care Teams Tooth Inspector Relationship Specialty Start Date End Date Willi Frost MD [address] [place] [address] [address] [place] [address] PCP - General 06/11/24 documented as of this encounter
--- OUTSIDE RECORDS SUMMARY | 2024-10-22 12:27 | XMS_ITS | Encounter Summary ---
Author Organization [facility] Address [address] [place] [address] Care Team Providers Care Rn Renal Name Role Phone Wlili Frost MD Primary Care Provider [phone] Encounter Details Date Type Department Care Team ([facility] Contact Info) Description 10/10/2024 Telephone P[facility] CC Hematology/BMT and Cellular Therapy Program [address] [place] [address] Michelle Sims, RN [facility]IN[facility] Social History Tobacco Use [...] Care Team ([facility] Contact Info) Description 10/30/2024 8:00 AM EDT Clinical Support [facility] CC Hematology/BMT and Cellular Therapy Program [address] [phone] 10/30/2024 8:30 AM EDT Office Visit [facility] Hematology/BMT and Cellular Therapy Program [address] [phone] Radha Morelos, CUSTOMER ADVOCATE [address] [facility] [address] [place] [phone] 11/13/2024 1:00 PM EDT Office Visit [facility] [address] [place] [address] Verena Montes PA 3101 [facility] [address] [place] [phone] 11/27/2024 1:30 PM EDT Clinical Support [facility] CC Hematology/BMT and Cellular Therapy Program [address] [place] [address] 11/27/2024 2:00 PM EDT Office Visit [facility] Hematology/BMT and Cellular Therapy Program [address] [place] [address] Mk Pastrana MD 800 [facility] [address] [place] [phone] documented as of this encounter Visit Diagnoses Not on filedocumented in this encounter Additional Health Concerns Assessment Noted Time A Body Mass Index follow-up plan has been documented for the patient 09/11/2024 6:12 PM EDT documented as of this encounter Care Teams Rn Renal Relationship Specialty Start Date End Date Willi Frost MD [address] [place] [address] [address] [place] [address] PCP - General 06/11/24 documented as of this encounter
--- OUTSIDE RECORDS SUMMARY | 2024-10-22 12:28 | XMS_ITS | Encounter Summary ---
Author Organization [facility] Address [address] [place] [address] Care Team Providers Care Cargo Vessel Stewardess Name Role Phone Willi Frost MD Primary Care Provider Encounter Details Date Type Department Care Team (Late Contact Info) Description 06/26/2024 Lab Requisition PAV A Blood Bank [address] [place] [phone] Moises Estrada MD [address] [place] [address] General medical exam Social History Tobacco Use [...] Hematology/BMT and Cellular Therapy Program [address] [place] [address] 10/30/2024 8:30 AM EDT Office Visit [facility] Hematology/BMT and Cellular Therapy Program [address] [place] [phone] Radha Morelos, RING ROLLING MACHINE OPERATOR 800 [facility] [address] [place] [phone] 11/13/2024 1:00 PM EDT Office Visit [facility] [address]01 [facility] [place] [address] Vernea Montes PA [address] [facility] [address] [place] [address] 11/27/2024 1:30 PM EDT Clinical Support [facility] CC Hematology/BMT and Cellular Therapy Program [address] [place] [phone] 11/27/2024 2:00 PM EDT Office Visit [facility] Hematology/BMT and Cellular Therapy Program [address] [phone] Mk Pastrana MD 800 [facility] [address] [place] [phone] documented as of this encounter Procedures Procedure [...] ORDERAB LES Final Result BLOOD BANK [address] [place] [address], [place] * Bill Only Isoagglutinin Titer (06/24/2024 11:26 AM EDT) Blood Bank Lab Only (Blood Bank Lab Only) 06/24/2024 11:26 AM EDT 06/26/2024 8:52 AM EDT us Moises Estrada MD LAB BLOOD BANK TEST ORDERAB LES Final Result Performing Organization Address [facility] de Phone Number BLOOD BANK [address] [place] [address], * Bill Only Isoagglutinin Titer (06/24/2024 11:26 AM EDT) Blood Bank Lab Only (Blood Bank Lab Only) 06/24/2024 11:26 AM EDT 06/26/2024 8:52 AM EDT us Moises Estrada MD LAB BLOOD BANK TEST ORDERAB LES Final Result Performing Organization Address [facility] de Phone Number BLOOD [address] documented in this encounter Visit Diagnoses Diagnosis General medical exam Unspecified general medical examination documented in this encounter Care Teams Cargo Vessel Stewardess Relationship Specialty Start Date End Date Willi Frost MD [address] [place] [address] PCP - General 06/11/24 documented as of this encounter
--- OUTSIDE RECORDS SUMMARY | 2024-10-22 12:28 | XMS_ITS | Encounter Summary ---
Author Organization [facility] Address [address] [place] [address] Care Team Providers Care Medical Scribe Name Role Phone Willi Frost MD Primary Care Provider Encounter Details Date Type Department Care Team ([facility] Contact Info) Description 08/28/2024 Orders Only PAV CC Hematology/BMT and Cellular Therapy Program [address] [place] [phone] Jojo Iyer, PharmD [address] [place] [address] CML (chronic myelocytic leukemia) (CMS/HCC) [...] Upcoming Encounters Date Type Department Care Team ([facility] Contact Info) Description 10/30/2024 8:00 AM EDT Clinical Support P[facility] CC Hematology/BMT and Cellular Therapy Program 750 [facility], [address] [place] [address] [place] [address] 10/30/2024 8:30 AM EDT Office Visit [facility] CC Hematology/BMT and Cellular Therapy Program [address] [phone] Radha Morelos, MARCY 800 [facility] [address] [phone] 11/13/2024 1:00 PM EDT Office Visit [facility] [address] [place] [address] Verena Montes PA 3101 [facility] 100 [place] [address] 11/27/2024 1:30 PM EDT Clinical Support PAV Hematology/BMT and Cellular Therapy Program [address] [place] [phone] 11/27/2024 2:00 PM EDT Office Visit PAV Hematology/BMT and Cellular Therapy Program [address] [place] [phone] Mk Pastrana MD 800 [facility] [address] [place] [phone] documented as of this encounter Visit Diagnoses Diagnosis CML (chronic myelocytic leukemia) (CMS/HCC)- Primary Chronic myeloid leukemia, without mention of having achieved remission documented in this encounter Additional Health Concerns Assessment Noted Time A Body Mass Index follow-up plan has been documented for the patient 08/28/2024 5:28 PM EDT documented as of this encounter Care Teams Medical Scribe Relationship Specialty Start Date End Date Willi Frost MD [facility] [address] [facility] [address] [place] [address] PCP - General 06/11/24 documented as of this encounter
--- OUTSIDE RECORDS SUMMARY | 2024-10-22 12:28 | XMS_ITS | Encounter Summary ---
Author Organization [facility] Address [address] [id number] Care Team Providers Care Yarn Dyer Name Role Phone Willi Frost MD Primary Care Provider [phone] Reason for Visit * Reason Comments Social Work/navigation Follow-up Encounter Details Date Type Department Care Team ([facility] st Contact Info) Description 08/28/2024 Social Work Psych Oncology [address] [place] [address] [place] [address] Social History Tobacco Use Types Packs/Day Years [...] Call Disease Status: Established Patient Clinic Location: [facility] Disease Type: Leukemia Services Provided: Financial Support, Psychosocial Monitoring Intervention Level: 2 Units (1 unit = 15 minutes): 1 Narrative: COUNTER HOP spoke with patient via phone to follow up on assistance from LLS. She was informed that Patient Aid eric is pending need for identity verification. It is likely that application is pending because of recent move in the last year as patient relocated from [place]. She is informed thattypically photo identification is uploaded but ID in record does not match current address in [place]. COUNTER HOP went over alternative options and it was determined [facility] award letter would suffice. Patient shared she is either going to send COUNTER HOP via email or provide during her RTC on 09/10. She was encouraged to reach out for on-going supportive needs as they arise. documented in this encounter Plan of Treatment Upcoming Encounters Date Type Department Care Team ([facility] Contact Info) Description 10/30/2024 8:00 AM EDT Clinical Support [facility] Hematology/BMT and Cellular Therapy Program [address] [place] [phone] 10/30/2024 8:30 AM EDT Office Visit [facility] Hematology/BMT and Cellular Therapy Program [address] [phone] Radha Morelos, MARCY 800 [facility] [address] [place] [phone] 11/13/2024 1:00 PM EDT Office Visit [address] [phone] Verena Montes PA [address] [place] [phone] 11/27/2024 1:30 PM EDT Clinical Support [facility] Hematology/BMT and Cellular Therapy Program [address] [phone] 11/27/2024 2:00 PM EDT Office Visit [facility] Hematology/BMT and Cellular Therapy Program [address] [phone] Mk Pastrana MD [address] [facility] [address] [place] [phone] documented as of this encounter Visit Diagnoses Not on filedocumented in this encounter Additional Health Concerns Assessment Noted Time A Body Mass Index follow-up plan has been documented for the patient 08/28/2024 5:28 PM EDT documented as of this encounter Care Teams Yarn Dyer Relationship Specialty Start Date End Date Willi Frost MD [address] [place] [address] [address] [place] [address] PCP - General 06/11/24 documented as of this encounter
--- OUTSIDE RECORDS SUMMARY | 2024-10-22 12:28 | XMS_ITS | Encounter Summary ---
Author Organization [facility] Address [address] [place] [address] Care Team Providers Care Cigar Making Supervisor Name Role Phone Willi Frost MD Primary Care Provider Encounter Details Date Type Department Care Team ([facility] Contact Info) Description 09/25/2024 Telephone [facility] Hematology/BMT and Cellular Therapy Program [address] [place] [address] [place]int[place] [address] Tg Rodgers RN [facility] Social History Tobacco [...] Hematology/BMT and Cellular Therapy Program [address] [phone] 10/30/2024 8:30 AM EDT Office Visit [facility] Hematology/BMT and Cellular Therapy Program [address] [place] [phone] Radha Morelos, WELDING TECHNICIAN 800 [facility] [address] [place] [phone] 11/13/2024 1:00 PM EDT Office Visit [facility] [address] [place] [address] Verena Montes PA 3101 [facility] 100 [place] [phone] 11/27/2024 1:30 PM EDT Clinical Support [facility] Hematology/BMT and Cellular Therapy Program [address] [place] [phone] 11/27/2024 2:00 PM EDT Office Visit [facility] Hematology/BMT and Cellular Therapy Program [address] [place] [phone] Mk Pastrana MD 800 [facility] [address] [place] [phone] documented as of this encounter Visit Diagnoses Not on filedocumented in this encounter Additional Health Concerns Assessment Noted Time A Body Mass Index follow-up plan has been documented for the patient 09/11/2024 6:12 PM EDT documented as of this encounter Care Teams Cigar Making Supervisor Relationship Specialty Start Date End Date Willi Frost MD [address] [facility] [address] [place] [address] PCP - General 06/11/24 documented as of this encounter
--- OUTSIDE RECORDS SUMMARY | 2024-10-22 12:28 | XMS_ITS | Encounter Summary ---
Author Organization [facility] Address [address] [place] [address] Care Team Providers Care Crayon Sawyer Name Role Phone Willi Frost MD Primary Care Provider [phone] Encounter Details Date Type Department Care Team (Late Contact Info) Description 08/13/2024 Lab Requisition [facility] [address] [place] [phone] Mk Pastrana MD 800 [facility] [address] [place] [phone] Chronic myeloid leukemia, BCR/ABL-positive, not having achieved [...] CC Hematology/BMT and Cellular Therapy Program [address] [phone] 10/30/2024 8:30 AM EDT Office Visit [facility] Hematology/BMT and Cellular Therapy Program [address] [place] [place] [phone] Radha Morelos, MARCY 800 [facility] [address] [place] [phone] 11/13/2024 1:00 PM EDT Office Visit [facility] [address] [place] [address] Verena Montes PA [address]01 [facility] [address] [place] [phone] 11/27/2024 1:30 PM EDT Clinical Support [facility] Hematology/BMT and Cellular Therapy Program [address] [place] [phone] 11/27/2024 2:00 PM EDT Office Visit [facility] Hematology/BMT and Cellular Therapy Program [address] [place] [phone] Mk Pastrana MD 800 [facility] [address] [place] [phone] documented as of this encounter Procedures Procedure Name Priority Date/Time Associated Diagnosis Comments [facility] DONOR SEARCH AND CELL ACQUISITION Routine 06/24/2024 9:00 AM EDT Chronic myeloid leukemia, BCR/ABL-positive, 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) documented in this encounter Results * [facility] Donor Search and Cell Acquisition (06/24/2024 9:00 AM EDT) Service [facility] Management of Unrelated Donor Search 08/13/2024 10:02 PM EDT [facility] Service Date: 06/24/2024 08/13/2024 10:02 PM EDT [facility] Invoice No.: [id number] 08/13/2024 10:02 PM EDT [facility] Grid Number [id number] 08/13/2024 10:02 PM EDT [facility] NMDP (NMDP Donor Search ) 06/24/2024 9:00 AM EDT 08/13/2024 9:59 PM EDT us Mk Pastrana MD LAB BLOOD ORDERABLES Final Re sult [facility] [address] [place] [address] documented in this encounter Visit Diagnoses Diagnosis Chronic myeloid leukemia, BCR/ABL-positive, 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) documented in this encounter Care Teams Crayon Sawyer Relationship Specialty Start Date End Date Willi Frost MD [address] [place] [address] 1100 [place] [address] PCP - General 06/11/24 documented as of this encounter
--- OUTSIDE RECORDS SUMMARY | 2024-10-22 12:28 | XMS_ITS | Encounter Summary ---
Author Organization [facility] Address [address] [place] [address] Care Team Providers Care Upholstery Handler Name Role Phone Willi Frost MD Primary Care Provider [phone] Encounter Details Date Type Department Care Team (Late Contact Info) Description 06/25/2024 Lab Requisition [facility] H LAB 800 [place] [phone] Dary Vincent, LEG BREAKER 800 [facility] [address] [place] [phone] Chronic myeloid leukemia, BCR/ABL-positive, not having achieved [...] Hematology/BMT and Cellular Therapy Program [address] [place] [address] 10/30/2024 8:30 AM EDT Office Visit [facility] Hematology/BMT and Cellular Therapy Program [address] [place] [phone] Radha Morelos, LEG BREAKER 800 [facility] [address] [place] [phone] 11/13/2024 1:00 PM EDT Office Visit [facility] [address]01 [place] [address] Verena Montes PA 3101 [facility] [address] [place] [phone] 11/27/2024 1:30 PM EDT Clinical Support [facility] Hematology/BMT and Cellular Therapy Program [address] [place] [phone] 11/27/2024 2:00 PM EDT Office Visit [facility] Hematology/BMT and Cellular Therapy Program [address] [place] [phone] Mk Pastrana MD 800 [facility] [address] [place] [phone] documented as of this encounter Procedures [...] 1:01 PM EDT us Dary E Vincent LEG BREAKER LAB BLOOD ORDERABLES Final Result Performing Organization Address [facility] Co de Phone Number [facility] [address] * HLA Typing, Donor (HLATWD) (06/24/2024 11:26 AM EDT) HLA Lab Only (HLA Lab Only) 06/24/2024 11:26 AM EDT 06/25/2024 1:01 PM EDT Dary E Vincent LEG BREAKER LAB BLOOD ORDERABLES Final Result Performing Organization Address [facility] de Phone Number [facility] [address] documented in this encounter Visit Diagnoses Diagnosis Chronic myeloid leukemia, BCR/ABL-positive, 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) documented in this encounter Care Teams Upholstery Handler Relationship Specialty Start Date End Date Willi Frost MD [address] [place] [address] 1100 [place] [address] PCP - General 06/11/24 documented as of this encounter
--- OUTSIDE RECORDS SUMMARY | 2024-10-22 12:28 | XMS_ITS | Encounter Summary ---
Author Organization [facility] Address [address] [place] [address] Care Team Providers Care Braiding Machine Tender Name Role Phone Willi Frost MD Primary [...] Hematology/BMT and Cellular Therapy Program [address] [phone] 10/30/2024 8:30 AM EDT Office Visit [facility] Hematology/BMT and Cellular Therapy Program [address] [phone] Radha Morelos, [employer] 800 [facility] [address] [place] [phone] 11/13/2024 1:00 PM EDT Office Visit [facility] [address] [place] [phone] Verena Montes PA 3101 [facility] [address] [place] [phone] 11/27/2024 1:30 PM EDT Clinical Support [facility] Hematology/BMT and Cellular Therapy Program [address] [phone] 11/27/2024 2:00 PM EDT Office Visit [facility] Hematology/BMT and Cellular Therapy Program [address] [phone] Mk Pastrana MD 800 [facility] [address] [place] [phone] documented as of this encounter Visit Diagnoses Not on filedocumented in this encounter Additional Health Concerns Assessment Noted Time A Body Mass Index follow-up plan has been documented for the patient 09/11/2024 6:12 PM EDT documented as of this encounter Care Teams Braiding Machine Tender Relationship Specialty Start Date End Date Willi Frost MD [address] [place] [address] 1100 [place] [address] PCP - General 06/11/24 documented as of this encounter
--- OUTSIDE RECORDS SUMMARY | 2024-10-22 12:28 | XMS_ITS | Encounter Summary ---
Author Organization [facility] Address [address] [place] [address] Care Team Providers Care Audit Consultant Name Role Phone Willi Frost MD Primary Care Provider Encounter Details Date Type Department Care Team ([facility] st Contact Info) Description 08/01/2024 Telephone [facility] Hematology/BMT and Cellular Therapy Program [address] [place] [address] Mk Pastrana MD 800 [facility] [address] [place] [phone] Social History Tobacco Use Types Packs/Day Years [...] quit smoking. Best number to contact is [phone]. documented in this encounter Plan of Treatment Upcoming Encounters Date Type Department Care Team ([facility] Contact Info) Description 10/30/2024 8:00 AM EDT Clinical Support [facility] Hematology/BMT and Cellular Therapy Program [address] [phone] 10/30/2024 8:30 AM EDT Office Visit [facility] Hematology/BMT and Cellular Therapy Program [address] [place] [phone] Radha Morelos, MARCY 800 [facility] [address] [place] [phone] 11/13/2024 1:00 PM EDT Office Visit [address] [phone] Verena Montes PA [address] [place] [phone] 11/27/2024 1:30 PM EDT Clinical Support [facility] Hematology/BMT and Cellular Therapy Program [address] [phone] 11/27/2024 2:00 PM EDT Office Visit [facility] Hematology/BMT and Cellular Therapy Program [address] [phone] Mk Pastrana MD 800 [facility] [address] [place] [phone] documented as of this encounter Visit Diagnoses Not on filedocumented in this encounter Care Teams Audit Consultant Relationship Specialty Start Date End Date Willi Frost MD [address] [place] [address] PCP - General 06/11/24 documented as of this encounter
--- OUTSIDE RECORDS SUMMARY | 2024-10-22 12:28 | XMS_ITS | Encounter Summary ---
Author Organization [facility] Address [address] [id number] Care Team Providers Care Tools Developer Name Role Phone Willi Frost MD Primary Care Provider Reason for Visit * Reason Comments Resource Navigation Consult Encounter Details Date Type Department Care Team ([facility] st Contact Info) Description 08/20/2024 Social Work Psych Oncology 800 [place] [address] Michelle Gamez LCSW [address] [phone] Social History Tobacco Use Types Packs/Day Years [...] Status: Initial Psych Onc Contact Clinic Location: [facility] Disease Type: Leukemia Services Provided: Emotional [...] support options within the context of transplant. SIGNAL CIRCUIT DESIGNER explained role within clinic along with Psych-Oncology services. 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 Both patient and daughter explain complexities of caregiver support. Patient relocated from [place] after diagnosis to be closer to support system and is now living with daughter Jade. While there are multiple persons in household, most have other responsibilities so caregiver support during the day could be challenging. Patient and daughter asked about grantand/or insurance fund caregiver support options. SIGNAL CIRCUIT DESIGNER explained that there are no specific grants for caregivers but grants through [facility] that can help offset income loss. SIGNAL CIRCUIT DESIGNER, patient, and daughter also discussed logistics of post-transplant schedule including daily appts. If transportation is main barrier than medicaid transportation could be explored as option. Patient will have caregiver support daily from 4:00pm-overnight. Patient and daughter were encouraged to talk over disposition with family and further discussion will occur during formal BMT P/S evaluation. SIGNAL CIRCUIT DESIGNER to remain available for supportive needs as they arise. They were provided with contact information and encouraged to reach out as supportive needs as they arise. SIGNAL CIRCUIT DESIGNER also completed LLS Patient Aid on this date as well. documented in this encounter Plan of Treatment Upcoming Encounters Date Type Department Care Team ([facility] Contact Info) Description 10/30/2024 8:00 AM EDT Clinical Support [facility] Hematology/BMT and Cellular Therapy Program [address] [phone] 10/30/2024 8:30 AM EDT Office Visit [facility] Hematology/BMT and Cellular Therapy Program [address] [phone] Radha Morelos, [employer] 800 [facility] [address] [place] [phone] 11/13/2024 1:00 PM EDT Office Visit [facility] [address] [place] [phone] Verena Montes PA 3101 [facility] [address] [place] [phone] 11/27/2024 1:30 PM EDT Clinical Support [facility] Hematology/BMT and Cellular Therapy Program [address] [phone] 11/27/2024 2:00 PM EDT Office Visit [facility] Hematology/BMT and Cellular Therapy Program [address] [phone] Mk Pastrana MD 800 [facility] [address] [place] [phone] documented as of this encounter Visit Diagnoses Not on filedocumented in this encounter Care Teams Tools Developer Relationship Specialty Start Date End Date Willi Frost MD [facility] [address] [place] [address] PCP - General 06/11/24 documented as of this encounter
--- OUTSIDE RECORDS SUMMARY | 2024-10-22 12:28 | XMS_ITS | Encounter Summary ---
Author Organization [facility] Address [address] [place] [address] Care Team Providers Care Office Agent Name Role Phone Willi Frost MD Primary Care Provider Reason for Visit * Reason Onset Date Comments critical lab 08/28/2024 Encounter Details Date Type Department Care Team (Late st Contact Info) Description 08/28/2024 Telephone [facility] Hematology/BMT and Cellular Therapy Program [address] [place] [address] Jocelin Ahuja, RN [facility] ADMIN critical lab Social History [...] be getting antibiotics before extraction. Callback number: [phone] * Clinician Note - Jocelin Ahuja RN - 08/28/2024 10:34 AM EDT RN received critical labs platelet count 47 documented in this encounter Plan of Treatment Upcoming Encounters Date Type Department Care Team ([facility] st Contact Info) Description 10/30/2024 8:00 AM EDT Clinical Support [facility] Hematology/BMT and Cellular Therapy Program [address] [phone] 10/30/2024 8:30 AM EDT Office Visit [facility] Hematology/BMT and Cellular Therapy Program [address] [phone] Radha Morelos APRN 800 [facility] [address] [place] [phone] 11/13/2024 1:00 PM EDT Office Visit [facility] [address] [place] [phone] [place] [address] [place] [address] 100 [place] [address] 11/27/2024 1:30 PM EDT Clinical Support [facility] Hematology/BMT and Cellular Therapy Program [address] [phone] 11/27/2024 2:00 PM EDT Office Visit [facility] Hematology/BMT and Cellular Therapy Program [address] [phone] Mk Pastrana MD 800 [facility] [address] [place] [phone] documented as of this encounter Visit Diagnoses Not on filedocumented in this encounter Additional Health Concerns Assessment Noted Time A Body Mass Index follow-up plan has been documented for the patient 08/28/2024 5:28 PM EDT documented as of this encounter Care Teams Office Agent Relationship Specialty Start Date End Date Willi Frost MD [address] [place] [address] [address] [place] [address] PCP - General 06/11/24 documented as of this encounter
--- OUTSIDE RECORDS SUMMARY | 2024-10-22 12:28 | XMS_ITS | Encounter Summary ---
Author Organization [facility] Address [address] [place] [address] Care Team Providers Care Management Specialist Name Role Phone Willi Frost MD [...] Hematology/BMT and Cellular Therapy Program [address] [phone] 10/30/2024 8:30 AM EDT Office Visit [facility] Hematology/BMT and Cellular Therapy Program [address] [phone] Radha Morelos, GEOTHERMAL ELECTRICAL ENGINEER 800 [facility] [address] [place] [phone] 11/13/2024 1:00 PM EDT Office Visit [facility] [address] [place] [address] Verena Montes PA [address] [facility] [address] [place] [phone] 11/27/2024 1:30 PM EDT Clinical Support [facility] Hematology/BMT and Cellular Therapy Program [address] [place] [phone] 11/27/2024 2:00 PM EDT Office Visit [facility] CC Hematology/BMT and Cellular Therapy Program [address] [phone] Mk Pastrana MD 800 [facility] [address] [place] [phone] documented as of this encounter Visit Diagnoses Not on filedocumented in this encounter Additional Health Concerns Assessment Noted Time A Body Mass Index follow-up plan has been documented for the patient 08/28/2024 5:28 PM EDT documented as of this encounter Care Teams Management Specialist Relationship Specialty Start Date End Date Willi Frost MD [address] [place] [address] 1100 [place] [address] PCP - General 06/11/24 documented as of this encounter
--- OUTSIDE RECORDS SUMMARY | 2024-10-22 12:28 | XMS_ITS | Encounter Summary ---
Author Organization [facility] Address [address] [place] [address] Care Team Providers Care Heavy Equipment Field Mechanic Name Role Phone Willi Frost MD [...] Hematology/BMT and Cellular Therapy Program [address] [phone] 10/30/2024 8:30 AM EDT Office Visit [facility] Hematology/BMT and Cellular Therapy Program [address] [phone] Radha Morelos, ALCOHOL LAW ENFORCEMENT AGENT 800 [facility] [address] [place] [phone] 11/13/2024 1:00 PM EDT Office Visit [facility] [address] [facility] [place] [address] Verena Montes PA 3101 [facility] [address] [place] [address] 11/27/2024 1:30 PM EDT Clinical Support [facility] Hematology/BMT and Cellular Therapy Program [address] [phone] 11/27/2024 2:00 PM EDT Office Visit [facility] CC Hematology/BMT and Cellular Therapy Program [address] [phone] Mk Pastrana MD 800 [facility] [address] [place] [phone] documented as of this encounter Visit Diagnoses Not on filedocumented in this encounter Care Teams Heavy Equipment Field Mechanic Relationship Specialty Start Date End Date Willi Frost MD [address] [facility] [address] [place] [address] PCP - General 06/11/24 documented as of this encounter
--- OUTSIDE RECORDS SUMMARY | 2024-10-22 12:28 | XMS_ITS | Encounter Summary ---
Author Organization [facility] Address [address] [place] [address] Care Team Providers Care Barrel Washer Machine Name Role Phone Willi Frost MD Primary Care Provider [phone] Encounter Details Date Type Department Care Team [...] Hematology/BMT and Cellular Therapy Program [address] [phone] 10/30/2024 8:30 AM EDT Office Visit [facility] Hematology/BMT and Cellular Therapy Program [address] [phone] Radha Morelos, SUPERVISOR OF OPERATIONS 800 [facility] [address] [place] [phone] 11/13/2024 1:00 PM EDT Office Visit [facility] [address] [place] [address] Verena Montes PA 3101 [facility] [address] [place] [phone] 11/27/2024 1:30 PM EDT Clinical Support [facility] Hematology/BMT and Cellular Therapy Program [address] [place] [address] 11/27/2024 2:00 PM EDT Office Visit [facility] CC Hematology/BMT and Cellular Therapy Program [address] [phone] Mk Pastrana MD 800 [facility] [address] [place] [phone] documented as of this encounter Visit Diagnoses Not on filedocumented in this encounter Additional Health Concerns Assessment Noted Time A Body Mass Index follow-up plan has been documented for the patient 08/28/2024 5:28 PM EDT documented as of this encounter Care Teams Barrel Washer Machine Relationship Specialty Start Date End Date Willi Frost MD [address] [place] [address] [address] [place] [address] PCP - General 06/11/24 documented as of this encounter
[2024-10-22 13:42] LABS: Hematocrit 35.7 % (37.0-47.0); Hemoglobin 11.9 g/dL (12.2-16.2); Immature Granulocytes % 0.9 %; Mean Corpuscular HGB Conc 33.3 g/dL (31.8-35.4); Mean Corpuscular Hemoglobin 31.7 pg (27.0-31.2); Mean Corpuscular Volume 95.2 fl (81-99); Nucleated Red Blood Cells % 0 %; Platelet Count 187 K/mm3 (142-424); Red Blood Count 3.75 M/mm3 (4.20-5.40); Red Cell Distribution Width-SD 54.4 fL; White Blood Count 4.7 K/mm3 (4.8-10.8)
== END 2024-10-22 23:59 | disposition home or self-care (01) ==
LOC: LAB 12:24
PROVIDERS: PCP Family Medicine; Visit Provider Internal Medicine Medical Oncology
DX: C92.10 Chronic myeloid leukemia, BCR/ABL-positive, not having achieved remission (principal)
CPT/HCPCS: 36415; 85025

== ENCOUNTER 2024-11-20 14:48 | Outpatient (CLI) | payer MEDICAID, SELFPAY ==
--- OUTSIDE RECORDS SUMMARY | 2024-09-25 10:00 | XMS_ITS | Encounter Summary ---
Author Organization [facility] Address [address] [place] [address] Care Team Providers Care Yard Rigger Name Role Phone Willi Frost MD Primary Care Provider + [phone] Reason for Visit * Reason Comments Nurse Visit Labs * Genetic Testing (Routine) - Closed Specialty Diagnoses / Procedures Referred By Akosua t Referred To Contact Lab Diagnoses CML (chronic myelocytic leukemia) (CMS/HCC) Procedures STR, Patient Specimen Mk Pastrana MD [address] [facility] [address] [address] Phone: tel: fax: Referral ID Status Reason Start Date Expiration Date Visits Re quested Visits Authorized [id number] Closed 09/11/2024 03/13/2026 1 1 Encounter Details Date Type Department Care Team (Latest Contact Info) Description 09/25/2024 10:00 AM EDT Clinical Support [facility] Hematology/BMT and Cellular Therapy Program [address] [place] [phone] CML (chronic myelocytic leukemia) (CMS/HCC) Social History [...] Care Team (Late st Contact Info) Description 11/27/2024 11:00 AM EDT Clinical Support [facility] Cellular Therapy [facility] [address] [place] [address] 11/27/2024 11:30 AM EDT Office Visit [facility] Cellular Therapy [facility] [address] [place] [address] Catrachita Dior PA 800 [facility] [address] [place] [phone] 11/27/2024 1:30 PM EDT Clinical Support [address] [phone] 12/04/2024 9:15 AM EDT [facility] Visit [facility] [address] [place], [place] [phone] Trinidad Emery, STEPHANIE [address] [place], [place] [phone] 02/13/2025 3:00 PM EST Office Visit [address] [phone] [place] [address] [place] [address] [address] [place] [address] Pending Results Name Type Priority Associated Diagnoses Date /Time STR, Patient Specimen Lab Routine CML (chronic myelocytic leukemia) ([facility]/HCC) 09/25/2024 10:23 AM EDT documented as of this encounter Procedures Procedure Name Priority Date/Time Associated Diagnosis Comments STANISLAW FONTANEZ VIRUS (EBV) QUANTITATIVE PCR Routine 09/25/2024 10:23 AM EDT CML (chronic myelocytic leukemia) ([facility]) CREATININE CLEARANCE, PLASMA AND 24-HOUR URINE Routine [...] Collection 24 HRS 09/25/2024 11:25 AM EDT [facility] Urine, Volume 200 mL 09/25/2024 11:25 AM EDT [facility] Creatinine, Urine 201 mg/dL 09/25/2024 11:25 AM EDT [facility] Creatinine, Plasma 0.65 0.60 - 1.10 mg/dL 09/25/2024 11:25 AM EDT [facility] Creatinine Clearance 42.95(L) 66.00 - 108.00 mL/min 09/25/2024 11:25 AM EDT [facility] Creatinine per day, Urine 402(L) 500 - 1,600 mg/d 09/25/2024 11:25 AM EDT [facility] Urine Urine specimen obtained by clean catch procedure / Unknown Non-blood Collection / Unknown 09/25/2024 10:23 AM EDT 09/25/2024 10:24 AM EDT Mk Pastrana MD LAB URINE ORDERABLES Final Re sult [facility] [address] [place] [address] * Creatinine, Plasma (09/25/2024 10:23 AM EDT) Creatinine, Plasma 0.65 0.60 - 1.10 mg/dL 09/25/2024 11:17 AM EDT [facility] eGFRcr 106.1 mL/min/1.7 3m*2 09/25/2024 11:17 AM EDT [facility] Comment:Reported eGFRcr in m L/min/1.73m2 is based the CKD-EPI 2020 equation that does not use a race coefficient. Blood Venous blood specimen / Unknown Venipuncture / Unknown 09/25/2024 10:23 AM EDT 09/25/2024 10:34 AM EDT Mk Pastrana MD LAB BLOOD ORDERABLES Final Re sult Performing Organization Address City/[facility]/ZIP Co de Phone Number [facility] [address] [place] [address] * APTT (09/25/2024 10:23 AM EDT) aPTT 28 25 - 35 sec LAB COAGULATION METHOD 09/25/2024 11:00 AM EDT [facility] Blood Venous blood specimen / Unknown Venipuncture / Unknown 09/25/2024 10:23 AM EDT 09/25/2024 10:34 AM EDT kM Pastrana MD LAB BLOOD ORDERABLES Final Re sult Performing Organization Address [facility] Co de Phone Number [facility] [address] [place] [address] * Prothrombin Time/INR (09/25/2024 10:23 AM EDT) Prothrombin Time 12.7 12.0 - 14.3 sec LAB COAGULATION METHOD 09/25/2024 11:00 AM EDT [facility] INR 0.9 0.9 - 1.1 LAB COAGULATION METHOD 09/25/2024 11:00 AM EDT [facility] Blood Venous blood specimen / Unknown Venipuncture / Unknown 09/25/2024 10:23 AM EDT 09/25/2024 10:34 AM EDT Narrative [facility] - 09/25/2024 11:00 AM EDT OPTIMAL INR RANGES FOR PATIENT ON ORAL ANTICOAGULANT THERAPY Prevention of venous thromboembolism INR 2.0 to 3.0 In patients with heart disease: Atrial fibrillation INR 2.0 to 3.0 Valvular heart disease INR 2.0 to 3.0 Tissue heart valves INR 2.0 to 3.0 Mechanical prosthetic valves INR 2.5 to 3.5 Prevention of recurrent GA INR 2.5 to 3.5 Mk Pastrana MD LAB BLOOD ORDERABLES Final Re sult Performing Organization Address City/[facility]/ZIP Co de Phone Number [facility] [address] [place] [address] * Toxoplasma gondii antibody, IgG (09/25/2024 10:23 AM EDT) TOXOPLASMA IGG AB 3.7 <=8.8 IU/mL 09/27/2024 1:29 AM EDT [facility]) Blood Venous blood specimen / Unknown Venipuncture / Unknown 09/25/2024 10:23 AM EDT 09/25/2024 10:34 AM EDT Narrative [facility]) - 09/27/2024 1:29 AM EDT INTERPRETIVE INFORMATION: [...] the amount of antibody present. Performed By: [facility] [address] [place] [address] Registered Nurse Bone Marrow Transplant: Sunil Gomez MD, PhD CLIA Number: [id number] Mk Pastrana MD LAB BLOOD ORDERABLES Final Re sult [facility]) [address] [phone] * Stanislaw Fontanez Virus (EBV) Quantitative PCR (09/25/2024 10:23 AM EDT) Pathologist [facility] Stanislaw Fontanez Virus, Blood, Quant DNA Interpretation Not Detected Not Detected 10/01/2024 6:35 AM EDT [facility] Blood Venous blood specimen / Unknown Venipuncture / Unknown 09/25/2024 10:23 AM EDT 09/25/2024 10:34 AM EDT Narrative [facility] - 10/01/2024 6:35 AM EDT EBV [...] developed and it's performance characteristics determined by [facility] as appropriate for clinical purposes. [...] developed and it's performance characteristics determined by [facility] as appropriate for clinical purposes. This assay has not been cleared or approved by the FDA, but is performed in a CLIA regulated laboratory that is qualified to perform high-complexity testing. Mk Pastrana MD LAB BLOOD ORDERABLES Final Re sult [facility] [address] [place] [address] * (ABNORMAL) Ferritin (09/25/2024 10:23 AM EDT) Ferritin, Serum 294(H) 13 - 150 ng/mL 09/25/2024 11:17 AM EDT [facility] Blood Venous blood specimen / Unknown Venipuncture / Unknown 09/25/2024 10:23 AM EDT 09/25/2024 10:35 AM EDT Mk Pastrana MD LAB BLOOD ORDERABLES Final Re sult [facility] [address] [place] [address] * LDH (09/25/2024 10:23 AM EDT) LDH, Plasma 192 116 - 250 U/L 09/25/2024 11:17 AM EDT [facility] Blood Venous blood specimen / Unknown Venipuncture / Unknown 09/25/2024 10:23 AM EDT 09/25/2024 10:34 AM EDT Mk Pastrana MD LAB BLOOD ORDERABLES Final Re sult Performing Organization Address [facility] Co de Phone Number [facility] [address] [place] [address] * Thyroid Stimulating Hormone, Plasma (09/25/2024 10:23 AM EDT) Thyroid Stimulating Hormone, Plasma 1.01 0.40 - 4.20 uIU/mL 09/25/2024 11:17 AM EDT [facility] Blood Venous blood specimen / Unknown Venipuncture / Unknown 09/25/2024 10:23 AM EDT 09/25/2024 10:34 AM EDT Narrative [facility] - 09/25/2024 11:17 AM EDT Trimester Specific Ranges TSH ( IU/mL) 1st Trimester 0.1 - 3.0 2nd Trimester 0.19 - 4.06 3rd Trimester 0.3 - 3.7 Mk Pastrana MD LAB BLOOD ORDERABLES Final Re sult [facility] [address] [place] [address] * ABO/Rh Type (09/25/2024 10:23 AM EDT) ABO/Rh AB Positive 09/25/2024 10:12 AM EDT [facility] Blood Venous blood specimen / Unknown Venipuncture / Unknown 09/25/2024 10:23 AM EDT 09/25/2024 10:39 AM EDT us Mk Pastrana MD LAB BLOOD BANK TEST ORDERABLE S Final Result BLOOD BANK [address] [place] [address], * CMP (09/25/2024 10:23 AM EDT) Glucose, Plasma 85 74 - 99 mg/dL 09/25/2024 11:17 AM EDT [facility] BUN, Plasma 12 7 - 21 mg/dL 09/25/2024 11:17 AM EDT [facility] Creatinine, Plasma 0.65 0.60 - 1.10 mg/dL 09/25/2024 11:17 AM EDT [facility] BUN/Creatinine Ratio 18 09/25/2024 11:17 AM EDT [facility] Sodium, Plasma 140 136 - 145 mmol/L 09/25/2024 11:17 AM EDT [facility] Potassium, Plasma 4.3 3.6 - 4.9 mmol/L 09/25/2024 11:17 AM EDT [facility] Chloride, Plasma 106 97 - 107 mmol/L 09/25/2024 11:17 AM EDT [facility] CO2, Plasma 23 22 - 29 mmol/L 09/25/2024 11:17 AM EDT [facility] Anion Gap 11 6 - 16 mmol/L 09/25/2024 11:17 AM EDT [facility] Total Calcium, Plasma 9.7 8.9 - 10.2 mg/dL 09/25/2024 11:17 AM EDT [facility] Total Protein 7.7 6.3 - 7.9 g/dL 09/25/2024 11:17 AM EDT [facility] Albumin, Plasma 4.8 3.5 - 5.2 g/dL 09/25/2024 11:17 AM EDT [facility] AST, Plasma 17 10 - 35 U/L 09/25/2024 11:17 AM EDT [facility] ALT, Plasma 12 10 - 35 U/L 09/25/2024 11:17 AM EDT [facility] Alkaline Phosphatase, Plasma 100 35 - 104 U/L 09/25/2024 11:17 AM EDT [facility] Total Bilirubin, Plasma 0.8 0.2 - 1.1 mg/dL 09/25/2024 11:17 AM EDT [facility] eGFRcr 106.1 mL/min/1.7 3m*2 09/25/2024 11:17 AM EDT [facility] Comment:Reported eGFRcr in m L/min/1.73m2 is based the CKD-EPI 2020 equation that does not use a race coefficient. Blood Venous blood specimen / Unknown Venipuncture / Unknown 09/25/2024 10:23 AM EDT 09/25/2024 10:34 AM EDT us Mk Pastrana MD LAB BLOOD ORDERABLES Final Re sult [facility] [address] [place] [address] * (ABNORMAL) CBC and Differential (09/25/2024 10:23 AM EDT) WBC Count 1.98(L) 3.70 - 10.30 10*3/uL LAB HEMATOLOGY METHOD 09/25/2024 11:15 AM EDT [facility] RBC Count 3.68(L) 3.90 - 5.20 10*6/uL LAB HEMATOLOGY METHOD 09/25/2024 11:15 AM EDT [facility] HGB 12.1 11.2 - 15.7 g/dL LAB HEMATOLOGY METHOD 09/25/2024 11:15 AM EDT [facility] HCT 35.4 34.0 - 45.0 % LAB HEMATOLOGY METHOD 09/25/2024 11:15 AM EDT [facility] Platelet Count 61(L) 155 - 369 10*3/uL LAB HEMATOLOGY METHOD 09/25/2024 11:15 AM EDT [facility] MCV 96 79 - 98 fL LAB HEMATOLOGY METHOD 09/25/2024 11:15 AM EDT [facility] MCH 32.9(H) 26.0 - 32.0 pg LAB HEMATOLOGY METHOD 09/25/2024 11:15 AM EDT [facility] MCHC 34.2 30.7 - 35.5 g/dL LAB HEMATOLOGY METHOD 09/25/2024 11:15 AM EDT [facility] RDW 17.5(H) 11.5 - 14.5 % LAB HEMATOLOGY METHOD 09/25/2024 11:15 AM EDT [facility] MPV 11.0 8.8 - 12.5 fL LAB HEMATOLOGY METHOD 09/25/2024 11:15 AM EDT [facility] nRBC 0.0 <=0.0 per 100 WBCs LAB HEMATOLOGY METHOD 09/25/2024 11:15 AM EDT [facility] Differential Type Automated LAB HEMATOLOGY METHOD 09/25/2024 11:15 AM EDT [facility] Neutrophils % 21 % LAB HEMATOLOGY METHOD 09/25/2024 11:15 AM EDT [facility] Lymphocytes % 73 % LAB HEMATOLOGY METHOD 09/25/2024 11:15 AM EDT [facility] Monocytes % 4 % LAB HEMATOLOGY METHOD 09/25/2024 11:15 AM EDT [facility] Eosinophils % 1 % LAB HEMATOLOGY METHOD 09/25/2024 11:15 AM EDT [facility] Basophils % 1 % LAB HEMATOLOGY METHOD 09/25/2024 11:15 AM EDT [facility] Immature Granulocytes % 0 % LAB HEMATOLOGY METHOD 09/25/2024 11:15 AM EDT [facility] Neutrophils Absolute 0.42(LL) 1.60 - 6.10 10*3/uL LAB HEMATOLOGY METHOD 09/25/2024 11:15 AM EDT [facility] Lymphocytes Absolute 1.46 1.20 - 3.90 10*3/uL LAB HEMATOLOGY METHOD 09/25/2024 11:15 AM EDT [facility] Monocytes Absolute 0.07(L) 0.30 - 0.90 10*3/uL LAB HEMATOLOGY METHOD 09/25/2024 11:15 AM EDT [facility] Eosinophils Absolute 0.02 0.00 - 0.50 10*3/uL LAB HEMATOLOGY METHOD 09/25/2024 11:15 AM EDT [facility] Basophils Absolute 0.01 0.00 - 0.10 10*3/uL LAB HEMATOLOGY METHOD 09/25/2024 11:15 AM EDT [facility] Immature Granulocytes Absolute 0.00 0.00 - 0.06 10*3/uL LAB HEMATOLOGY METHOD 09/25/2024 11:15 AM EDT [facility] Blood Venous blood specimen / Unknown Venipuncture / Unknown 09/25/2024 10:23 AM EDT 09/25/2024 10:34 AM EDT Narrative [facility] - 09/25/2024 11:15 AM EDT Therapeutic decision making should be based on absolute values, rather than percentages. us Mk Pastrana MD LAB BLOOD ORDERABLES Final Re sult [facility] [address] [place] [address] documented in this encounter Visit Diagnoses Diagnosis CML (chronic myelocytic leukemia) (CMS/HCC) Chronic myeloid leukemia, without mention of having achieved remission documented in this encounter Additional Health Concerns Assessment Noted Time A Body Mass Index follow-up plan has been documented for the patient 09/11/2024 6:12 PM EDT documented as of this encounter Care Teams Yard Rigger Relationship Specialty Start Date End Date Willi Frost MD [address] [place] [address] [address] [place] [address] PCP - General 06/11/24 documented as of this encounter
--- OUTSIDE RECORDS SUMMARY | 2024-09-25 11:00 | XMS_ITS | Encounter Summary ---
Author Organization [facility] Address [address] [place] [address] Care Team Providers Care Mortar Man Name Role Phone Willi Frost MD Primary Care Provider Reason for Visit * Reason Comments Chronic Myelogenous Leukemia Encounter Details Date Type Department Care Team ([facility] Contact Info) Description 09/25/2024 11:00 AM EDT Office Visit [facility] Hematology/BMT and Cellular Therapy Program [address] [phone] Elena Ledezma, BRANCH LENDING MANAGER 800 [facility] [address] [place] [phone] CML (chronic myelocytic leukemia) (CMS/HCC) Social History [...] Notes * Progress Notes - Elena Ledezma, BRANCH LENDING MANAGER - 09/25/2024 11:00 AM EDT Patient Information [...] - Peripheral blood flow cytometry performed in [place] for leukocytosis revealed 3% myeloblasts with maturing [...] lesions 06/15/23 - Bone marrow biopsy in [place] was consistent with chronic myeloid leukemia with [...] mg p.o. nightly. 10/2023 - Relocated to [facility] and established care with Fredrick Bateman in [place], [place], for hematology/oncology follow-up. By that point, the patient had been on nilotinib 300 mg p.o. twice daily for several weeks. CBC with differential was normal. BCR-ABL testing on peripheral bloodrevealed PCR positivity of 26.98% (b2a2 transcript), 17.66% (B3 A2 transcript, [id number]), and 0.0403% (ela2, E348-uoatd transcript). The recommendation was to continue current therapy. 11/22/23 - Transferred care to [facility] hematology/oncology. The recommendation was to [...] accelerated chronic myeloidleukemia (CML), initially diagnosed in [place] on June 15, 2023, following evaluation for [...] the evening by mid-August. After relocating to [place] in October 2023, she established care locally [...] edema. I also discussed the risk of hsegb-trtcnl-epmy disease (acute or chronic), which may require [...] Description 11/27/2024 11:00 AM EDT Clinical Support [facility] Hematology/BMT and Cellular Therapy Program [address] [phone] 11/27/2024 11:30 AM EDT Office Visit [facility] Hematology/BMT and Cellular Therapy Program [address] [phone] Catrachita Dior PA 800 [facility] [address] [phone] 11/27/2024 1:30 PM EDT Clinical Support [address] [phone] 12/04/2024 9:15 AM EDT Office Visit [facility] [address] [place] [address] Trinidad Emery, STEPHANIE [address] [place] [address] 02/13/2025 3:00 PM EST Office Visit [address] [phone] Verena Montes PA [address] [place] [phone] documented as of this encounter Procedures Procedure Name Priority Date/Time Associated Diagnosis Comments ECG ADULT Routine 09/25/2024 10:38 AM EDT CML (chronic myelocytic leukemia) (CMS/HCC) documented in this encounter Results * ECG Adult (09/25/2024 10:38 AM EDT) EKG DIAGNOSIS CLASS Borderline Abnormal MUSE ECG Ventricular Rate 72 BPM MUSE ECG Atrial Rate 72 BPM MUSE ECG SD Interval 122 ms MUSE ECG QRSD Interval 64 ms MUSE ECG QT Interval 406 ms MUSE ECG QTC Interval 444 ms MUSE ECG P [place] 71 degrees MUSE ECG R [place] 54 degrees MUSE ECG T Wave [place] 87 degrees MUSE ECG Diagnosis Normal sinus rhythm MUSE ECG Diagnosis Low voltage QRS MUSE ECG Diagnosis Borderline ECG MUSE ECG Diagnosis MUSE ECG Diagnosis Confirmed by Arsalan Ko ([id number]) on 09/25/2024 11:05:04 AM MUSE ECG 09/25/2024 10:3 8 AM EDT 09/25/2024 11:05 AM EDT Mk Pastrana MD ECG ORDERABLES Final Result MUSE ECG documented in this encounter Visit Diagnoses Diagnosis CML (chronic myelocytic leukemia) (CMS/HCC) Chronic myeloid leukemia, without mention of having achieved remission documented in this encounter Additional Health Concerns Assessment Noted Time A Body Mass Index follow-up plan has been documented for the patient 09/11/2024 6:12 PM EDT documented as of this encounter Care Teams Mortar Man Relationship Specialty Start Date End Date Willi Frost MD [facility] [address] [place] [address] PCP - General 06/11/24 documented as of this encounter
--- OUTSIDE RECORDS SUMMARY | 2024-09-25 13:00 | XMS_ITS | Encounter Summary ---
Author Organization [facility] Address [address] [place] [address] Care Team Providers Care Order Dispatcher Name Role Phone Willi Frost MD Primary Care Provider [phone] Reason for Visit * Reason Comments Social Work * Consultation (Routine) - Closed Specialty Diagnoses / Procedures Referred By Contac t Referred To Contact Diagnoses CML (chronic myelocytic leukemia) (CMS/HCC) Mk Pastrana MD 800 [facility] [address] [address] Phone: tel: fax: Referral ID Status Reason Start Date Expiration Date V isits Requested Visits Authorized [id number] Closed Specialty Services Required 09/11/2024 03/13/2026 1 1 Encounter Details Date Type Department Care Team (Latest Contact Info) Description 09/25/2024 1:00 PM EDT Clinical Support [facility] Hematology/BMT and Cellular Therapy Program [address] [phone] Jocelin Ahuja, [facility] AMB SERV ADMIN CML (chronic myelocytic leukemia) (CMS/HCC) (Primary Dx) [...] CC Hematology/BMT and Cellular Therapy Program [address] [phone] 11/27/2024 11:30 AM EDT Office Visit [facility] Hematology/BMT and Cellular Therapy Program [address] [phone] Catrachita Dior PA 800 [facility] [address] [phone] 11/27/2024 1:30 PM EDT Clinical Support [address] [phone] 12/04/2024 9:15 AM EDT Office Visit [facility] [address] [place], [place] [phone] Trinidad Emery DMD [address] [place] [phone] 02/13/2025 3:00 PM EST Office Visit [address] [phone] Verena Montes PA [address] [place] [phone] documented as of this encounter Visit Diagnoses Diagnosis CML (chronic myelocytic leukemia) (CMS/HCC)- Primary Chronic myeloid leukemia, without mention of having achieved remission documented in this encounter Additional Health Concerns Assessment Noted Time A Body Mass Index follow-up plan has been documented for the patient 09/11/2024 6:12 PM EDT documented as of this encounter Care Teams Order Dispatcher Relationship Specialty Start Date End Date Willi Frost MD [address] [place] [address] [address] [place], [place] [phone] PCP - General 06/11/24 documented as of this encounter
--- OUTSIDE RECORDS SUMMARY | 2024-09-25 13:24 | XMS_ITS | Encounter Summary ---
Author Organization [facility] Address [address] [place] [address] Care Team Providers Care Oim Consultant Name Role Phone Willi Frost MD Primary Care Provider Encounter Details Date Type Department Care Team (Latest Contact Info) Description 09/25/2024 1:24 PM EDT - 09/25/2024 1:59 PM EDT Hospital Encounter [facility] Rad[facility] [address], 1st [place] [phone] Discharge Disposition: Home or Self Care Social [...] Hematology/BMT and Cellular Therapy Program [address] [place] [address] 11/27/2024 11:30 AM EDT Office Visit [facility] Hematology/BMT and Cellular Therapy Program 750 [facility] [place] [address] Catrachita Dior PA 800 [facility] [address] [place] [address] 11/27/2024 1:30 PM EDT Clinical Support [facility] [address] [place] [phone] 12/04/2024 9:15 AM EDT Office Visit [facility]istry [address] [place], [place] [phone] Trinidad Emery, STEPHANIE 800 [place], [place] [phone] 02/13/2025 3:00 PM EST Office Visit [facility] [address] [place] [phone] Verena Montes PA 3101 [facility] 100 [place] [phone] documented as of this encounter Procedures Procedure [...] signing this report, I, the attending physician, attjaisonat I have personally reviewed the images/data for [...] documented as of this encounter Care Teams Oim Consultant Relationship Specialty Start Date End Date Willi Frost MD [facility] [address] [facility] [address] [place] [address] PCP - General 06/11/24 documented as of this encounter
--- OUTSIDE RECORDS SUMMARY | 2024-09-25 14:00 | XMS_ITS | Encounter Summary ---
Author Organization [facility] Address [address] [place] [address] Care Team Providers Care Precision Layout Worker Name Role Phone Willi Frost MD Primary Care Provider [phone] Reason for Referral * Imaging (Routine) - Closed Specialty Diagnoses / Procedures Referred By Contac t Referred To Contact Cardiology Diagnoses CML (chronic myelocytic leukemia) (CMS/HCC) Procedures Echo, Adult Transthoracic Complete Mk Pastrana MD [address] [facility] [address] [place] [address] Phone: tel: fax: Referral ID Status Reason Start Date Expiration Date V isits Requested Visits Authorized [id number] Closed Perform Procedure 09/11/2024 03/13/2026 1 1 Reason for Visit * Reason Comments Procedure Echo * Imaging (Routine) - Closed Specialty Diagnoses / Procedures Referred By Contac t Referred To Contact Cardiology Diagnoses CML (chronic myelocytic leukemia) (CMS/HCC) Procedures Echo, Adult Transthoracic Complete Mk Pastrana MD [address] [facility] [address] [place] [address] Phone: tel: fax: Referral ID Status Reason Start Date Expiration Date V isits Requested Visits Authorized [id number] Closed Perform Procedure 09/11/2024 03/13/2026 1 1 Encounter Details Date Type Department Care Team (Latest Contact Info) Description 09/25/2024 2:00 PM EDT - 09/25/2024 2:59 PM EDT Hospital Encounter [facility] Echo [address] [place] [phone] CML (chronic myelocytic leukemia) ([facility]/HCC) Discharge Disposition: Home or Self Care Social [...] Hematology/BMT and Cellular Therapy Program [address] [place] [address] 11/27/2024 11:30 AM EDT Office Visit [facility] Hematology/BMT and Cellular Therapy Program [address] [place] [phone] Catrachita Dior PA [address] [facility] [address] [place] [address] 11/27/2024 1:30 PM EDT Clinical Support [facility] [address] [place] [address] 12/04/2024 9:15 AM EDT Office Visit [facility] [address] [place] [address] Trinidad Emery, DMD [address] [place] [address] 02/13/2025 3:00 PM EST Office Visit [address] [phone] [place] [address] [place] [address] [address] [place] [phone] documented as of this encounter Procedures Procedure [...] 8 mm WINDY ISCV LVPWd 9 mm WINDY ISCV LV MASS(C)D 97 g WINDY ISCV [...] Root Diam 32 mm WINDY ISCV PA CO(ACCEL) 18.7 mmHg WINDY ISCV LV Lat e' [...] is no recent study available for direct xltn-bv-gyjo comparison. Left Ventricle The left ventricle is [...] is no recent study available for direct iypt-bq-tslx comparison. Mk Pastrana MD CV ECHO PROCEDURES Final Resu lt documented in this encounter Visit Diagnoses Diagnosis CML (chronic myelocytic leukemia) (CMS/HCC) Chronic myeloid leukemia, without mention of having achieved remission documented in this encounter Additional Health Concerns Assessment Noted Time A Body Mass Index follow-up plan has been documented for the patient 09/11/2024 6:12 PM EDT documented as of this encounter Care Teams Precision Layout Worker Relationship Specialty Start Date End Date Willi Frost MD [address] [place] [address] [address] [place] [address] PCP - General 06/11/24 documented as of this encounter
--- OUTSIDE RECORDS SUMMARY | 2024-09-25 15:00 | XMS_ITS | Encounter Summary ---
Author Organization [facility] Address [address] [place] [address] Care Team Providers Care Shoe Lay Out Planner Name Role Phone Willi Frost MD Primary Care Provider [phone] Encounter Details Date Type Department Care Team (Latest Contact Info) Description 09/25/2024 3:00 PM EDT - 09/25/2024 11:59 PM EDT Hospital Encounter PAV H Pulmonary Function Testing [address] [place] [address] CML (chronic myelocytic leukemia) ([facility]) Discharge Disposition: Home or Self Care Social [...] CC Hematology/BMT and Cellular Therapy Program 750 [facility] [place] [phone] 11/27/2024 11:30 AM EDT Office Visit [facility] Hematology/BMT and Cellular Therapy Program 750 [facility], [address] [place] [phone] Catrachita Dior PA 800 [facility] [address] [place] [phone] 11/27/2024 1:30 PM EDT Clinical Support [facility] [address] [place] [phone] 12/04/2024 9:15 AM EDT Office Visit [facility] [address] [place], [place] [phone] Trinidad Emery, STEPHANIE [address] [place], [place] [phone] 02/13/2025 3:00 PM EST Office Visit [address] [phone] [place] [address] [place] [address] [address] [place] [address] documented as of this encounter Procedures Procedure Name Priority Date/Time Associated Diagnosis Comments ME BREATHING CAPACITY TEST Routine 09/25/2024 4:31 PM EDT CML (chronic myelocytic leukemia) ([facility]/HCC) documented in this encounter Results * Pulmonary function testing (09/25/2024 4:31 PM EDT) [facility] SOX1UTT 3.21 L 09/25/2024 4:28 PM EDT VYAIRE PFT FVC PRED 3.18 09/25/2024 4:28 PM EDT VYAIRE PFT FVC PRELLN 2.51 09/25/2024 4:28 PM EDT VYAIRE PFT FVCPREZSCORE 0.06 09/25/2024 4:28 PM EDT VYAIRE PFT FVCPRE%PRED 101 % % 09/25/2024 4:28 PM EDT VYAIRE PFT FVC [facility] (2011) 09/25/2024 4:28 PM EDT VYAIRE PFT FVC Z-SCORE 0.06 09/25/2024 4:28 PM EDT VYAIRE PFT FEV1 PRE 2.35 L 09/25/2024 4:28 PM EDT VYAIRE PFT FEV1 PRED 2.57 09/25/2024 4:28 PM EDT VYAIRE PFT FEV1 PRELLN 1.98 09/25/2024 4:28 PM EDT VYAIRE PFT EZW4QJQCCMQFO -0.62 09/25/2024 4:28 PM EDT VYAIRE PFT FEV1_Pre%Pred 92 % % 09/25/2024 4:28 PM EDT VYAIRE PFT FEV1 PREDAUT[facility] SERVICESY[facility]idal[facility] MOSLEY (2011) 09/25/2024 4:28 PM EDT VYAIRE PFT FEV1 Z-SCORE -0.62 09/25/2024 4:28 PM EDT VYAIRE PFT FEV1/FVC PRE 73.32 % 09/25/2024 4:28 PM EDT VYAIRE PFT UTN4KEUQPNO 81 09/25/2024 4:28 PM EDT VYAIRE PFT FEV1/FVC PRELLN 71 4:28 PM EDT VYAIRE PFT WQH3UKLFUFYGHUJT -1.25 09/26/19 4:28 PM EDT VYAIRE PFT QCO3PKNKVC%PRED 91 % % 4:28 PM EDT VYAIRE PFT JZJ3MJKECLXV [facility] (2011) 09/25/2024 4:28 PM EDT VYAIRE PFT GLC5UTQUPKDXT -1 09/25/2024 4:28 PM EDT VYAIRE PFT VGA39-65% PRE 1.73 L/s 09/25/2024 4:28 PM EDT VYAIRE PFT LBU54-19%_Pred 2.51 09/25/2024 4:28 PM EDT VYAIRE PFT JGQ53-81% PRELLN 1.38 09/26/19 25 4:28 PM EDT VYAIRE PFT OIQ7387%PREZSCORE -1.08 025 4:28 PM EDT VYAIRE PFT SED0612%PRE%PRED 69 % % 09/26/19 4:28 PM EDT VYAIRE PFT PYD1242%[facility] US_Quanjer GLI (2011) 09/25/2024 4:28 PM EDT VYAIRE PFT PEF PRE 6.46 L/s 09/25/2024 4:28 PM EDT VYAIRE PFT PEF PRED 6.35 09/25/2024 4:28 PM EDT VYAIRE PFT PEF PRELLN 4.87 09/25/2024 4:28 PM EDT VYAIRE PFT PEFPREZSCORE 0.12 09/25/2024 4:28 PM EDT VYAIRE PFT PEFPRE%PRED 102 % % 09/25/2024 4:28 PM EDT VYAIRE PFT [facility]F [facility] ECCS (1992) 09/25/2024 4:28 PM EDT VYAIRE PFT ULOWKFOQMTGVDNXK0QTG 13.30 ml/(min* mmHg) 09/25/2024 4:28 PM EDT VYAIRE PFT DLCOSINGLEBREATH PRED 20.70 09/25/2024 4:28 PM EDT VYAIRE PFT DLCOSINGLEBREATH LLN 16.09 09/08 4:28 PM EDT VYAIRE PFT DLCOSINGLEBREATH Z-SCORE -2.83 09/25/2024 4:28 PM EDT VYAIRE PFT DLCOSINGLEBREATH % PRED 64.2 % 09/25/2024 4:28 PM EDT VYAIRE PFT DLCOSINGLEBREATH [facility] Stanojevic TLCO GLI (2019) 09/25/2024 4:28 PM EDT VYAIRE PFT DLCOSINGLEBREATH Z-SCORE -2.83 09/25/2024 4:28 PM EDT VYAIRE PFT YWPFJSXUERIJYGMOY1HV E 13.88 ml/(min* mmHg) 09/25/2024 4:28 PM EDT VYAIRE PFT DLCOCSINGLEBREATH PRED 20.70 09/25/2024 4:28 PM EDT VYAIRE PFT DLCOCSINGLEBREATH LLN 16.09 09/25/2024 4:28 PM EDT VYAIRE PFT DLCOCSINGLEBREATH Z-SCORE -2.56 09/25/2024 4:28 PM EDT VYAIRE PFT DLCOCSINGLEBREATH % PRED 67.1 % 09/25/2024 4:28 PM EDT VYAIRE PFT DLCOCSINGLEBREATH PREDAUTH Cherry TLCO GLI (2019) 09/25/2024 4:28 PM EDT VYAIRE PFT FAXMYO5IDY 2.90 ml/(min* mmHg*L) 09/25/2024 4:28 PM EDT VYAIRE PFT DLCOVAPRED 4.27 09/25/2024 4:28 PM EDT VYAIRE PFT DLCOVALLN 3.33 09/25/2024 4:28 PM EDT VYAIRE PFT DLCOVAZSCORE -2.47 09/25/2024 4:28 PM EDT VYAIRE PFT DLCOVA%PRED 68.0 % 09/25/2024 4:28 PM EDT VYAIRE PFT DLCOVAPREDAUTH Stanojevonvic TLCO GLI (2019) 09/25/2024 4:28 PM EDT VYAIRE PFT DLCOVAZSCORE -2.47 09/25/2024 4:28 PM EDT VYAIRE PFT DDSVITSEV6OZW 3.03 ml/(min* mmHg*L) 09/25/2024 4:28 PM EDT VYAIRE PFT DLCOC SB/VA PRED 4.27 09/26/19 4:28 PM EDT VYAIRE PFT DLCOC SB/VA LLN 3.33 4:28 PM EDT VYAIRE PFT DLCOC SB/VA Z-SCORE -2.21 09/25 4:28 PM EDT VYAIRE PFT DLCOC SB/VA % PRED 71.0 % 2024 4:28 PM EDT VYAIRE PFT DLCOC SB/VA PREDAUT Cherry TLCO GLI (2019) 09/25/2024 4:28 PM EDT VYAIRE PFT DLCOC SB/VA Z-SCORE -2.21 09/25 4:28 PM EDT VYAIRE PFT ZSSGREPZUCRDKZ3GTE 4.58 L 2024 4:28 PM EDT VYAIRE PFT VASINGLEBREATH PRED 4.88 09/25 4:28 PM EDT VYAIRE PFT VASINGLEBREATH LLN 3.98 2024 4:28 PM EDT VYAIRE PFT VASINGLEBREATH Z-SCORE -0.52 09/25/2024 4:28 PM EDT VYAIRE PFT VASINGLEBREATH % PRED 94.0 % 09/25/2024 4:28 PM EDT VYAIRE PFT VASINGLEBREATH PREDAUT Shruthivic TLCO GLI (2019) 09/25/2024 4:28 PM EDT VYAIRE PFT VASINGLEBREATH Z-SCORE -0.52 09/25/2024 4:28 PM EDT VYAIRE PFT GVZYUJKGBMJOWAP9ZWN 3.10 L 09/25 4:28 PM EDT VYAIRE PFT IVCSINGLEBREATH PRED 3.18 09/08 4:28 PM EDT VYAIRE PFT IVCSINGLEBREATH LLN 2.51 09/25 4:28 PM EDT VYAIRE PFT IVCSINGLEBREATH Z-SCORE -0.19 09/25/2024 4:28 PM EDT VYAIRE PFT IVCSINGLEBREATH % PRED 97.5 % 09/25/2024 4:28 PM EDT VYAIRE PFT IVCSINGLEBREATH PREDAUT US_Quanjer GLI (2011) 09/25/2024 4:28 PM EDT VYAIRE PFT HB PRE 12.10 g(Hb)/dL 09/25/2024 4:28 PM EDT VYAIRE PFT FCK0GXC 5.21 L 09/25/2024 4:28 PM EDT VYAIRE PFT TLCPRED 5.29 09/25/2024 4:28 PM EDT VYAIRE PFT TLCLLN 4.31 09/25/2024 4:28 PM EDT VYAIRE PFT TLCULN 6.37 09/25/2024 4:28 PM EDT VYAIRE PFT TLCZSCORE -0.12 09/25/2024 4:28 PM EDT VYAIRE PFT TLC%PRED 98.6 % 09/25/2024 4:28 PM EDT VYAIRE PFT TLCPREDAUTH [facility] GLI (2020)__ 09/25/2024 4:28 PM EDT VYAIRE PFT VC0PRE [...] (2019)__ 09/25/2024 4:28 PM EDT VYAIRE PFT EGXPWTLE7DST 2.74 L 09/25/2024 4:28 PM EDT VYAIRE [...] (2019)__ 09/25/2024 4:28 PM EDT VYAIRE PFT YZL9GWS 0.68 L 09/25/2024 4:28 PM EDT VYAIRE PFT ERVPRED 1.01 09/25/2024 4:28 PM EDT VYAIRE PFT ERVLLN 0.40 09/25/2024 4:28 PM EDT VYAIRE PFT ERVULN 1.87 09/25/2024 4:28 PM EDT VYAIRE PFT ERV Z-SCORE -0.80 09/25/2024 4:28 PM EDT VYAIRE PFT ERV%PRED 67.5 % 09/25/2024 4:28 PM EDT VYAIRE PFT [facility]PREDAUT[facility] GLI (2019)__ 09/25/2024 4:28 PM [...] (2019)__ 09/25/2024 4:28 PM EDT VYAIRE PFT RV%GSY0KMM 38.52 % 09/25/2024 4:28 PM EDT VYAIRE PFT RV%TLCPRED 30 09/25/2024 4:28 PM EDT VYAIRE PFT RV%TLCLLN 19 09/25/2024 4:28 PM EDT VYAIRE PFT RV%TLCULN 41 09/25/2024 4:28 PM EDT VYAIRE PFT RV%TLCZSCORE 1.32 09/25/2024 4:28 PM EDT VYAIRE PFT RV%TLC%PRED 130.0 % 09/25/2024 4:28 PM EDT VYAIRE PFT RV%TLCPREDAUTH [facility] GLI (2019)__ 09/25/2024 4:28 PM EDT VYAIRE PFT SKL5JYB 2.89 L 09/25/2024 4:28 PM EDT VYAIRE PFT Anatomical Region Laterality Modality PFT 09/25/2024 3:47 PM EDT Narrative 09/30/2024 8:27 AM EDT Pulmonary Function Testing Report Amita Ortiz 54 y.o. underwent pulmonary function testing today at the [facility]. The patient underwent spirometry, lung volumes by [...] documented as of this encounter Care Teams Shoe Lay Out Planner Relationship Specialty Start Date End Date Willi Frost MD [address] [place] [address] PCP - General 06/11/24 documented as of this encounter
--- OUTSIDE RECORDS SUMMARY | 2024-10-03 08:30 | XMS_ITS | Encounter Summary ---
Author Organization [facility] Address [address] [place] [address] Care Team Providers Care Metalsmith Helper Name Role Phone Willi Frost MD Primary Care Provider Reason for Visit * Reason Comments Labs Nurse Visit Encounter Details Date Type Department Care Team (Late Contact Info) Description 10/03/2024 8:30 AM EDT Clinical Support [facility] CC Hematology/BMT and Cellular Therapy Program [address] [phone] Social History Tobacco Use Types [...] Department Care Team (Late Contact Info) Description 11/27/2024 11:00 AM EDT Clinical Support [facility] CC Hematology/BMT and Cellular Therapy Program [address] [phone] 11/27/2024 11:30 AM EDT Office Visit [facility] CC Hematology/BMT and Cellular Therapy Program [address] [phone] Catrachita Dior PA 800 [facility] 1st [place] [phone] 11/27/2024 1:30 PM EDT Clinical Support [place] [phone] [place] [phone] 12/04/2024 9:15 AM EDT Office Visit [facility] [address] [place], [place] [phone] Trinidad Emery, STEPHANIE [address] [place] [address] 02/13/2025 3:00 PM EST Office Visit [address] [phone] [place] [address] [place] [address] [address] [place] [address] documented as of this encounter Visit Diagnoses Not on filedocumented in this encounter Additional Health Concerns Assessment Noted Time A Body Mass Index follow-up plan has been documented for the patient 09/11/2024 6:12 PM EDT documented as of this encounter Care Teams Metalsmith Helper Relationship Specialty Start Date End Date Willi Frost MD [facility] [address] [place] [address] PCP - General 06/11/24 documented as of this encounter
--- OUTSIDE RECORDS SUMMARY | 2024-10-03 09:00 | XMS_ITS | Encounter Summary ---
Author Organization [facility] Address [address] [place] [address] Care Team Providers Care Java Software Developer Name Role Phone Willi Frost MD Primary Care Provider + [phone] Reason for Visit * Reason Comments Procedure * Genetic Testing (Routine) - Authorized Specialty Diagnoses / Procedures Referred By Contac t Referred To Contact Lab Diagnoses CML (chronic myelocytic leukemia) (CMS/HCC) Procedures Leukemia/Lymphoma - Immunophenotyping by Flow Cytometry Mk Pastrana MD [address] [facility] [address] [address] Phone: tel: fax: Referral ID Status Reason Start Date Expiration Date V isits Requested Visits Authorized [id number] Authorized 08/20/2024 02/19/2026 1 1 Encounter Details Date Type Department Care Team (Latest Contact Info) Description 10/03/2024 9:00 AM EDT Procedure Visit [facility] Hematology/BMT and Cellular Therapy Program [address] [place] [address] Bhavana Bella APRN [address] [facility] [address] [address] CML (chronic myelocytic leukemia) (CMS/HCC) (Primary [...] to surronding structures. Alternatives discussed: Delayed treatment Bock protocol: Procedure explained and questions answered to [...] Upcoming Encounters Date Type Department Care Team ([facility] Contact Info) Description 11/27/2024 11:00 AM EDT Clinical Support [facility] Hematology/BMT and Cellular Therapy Program [address] [address] 11/27/2024 11:30 AM EDT Office Visit [facility] Hematology/BMT and Cellular Therapy Program [address] [phone] Catrachita Dior PA [address] [facility] [address] [place] [phone] 11/27/2024 1:30 PM EDT Clinical Support [facility] [address] [place] [address] 12/04/2024 9:15 AM EDT Office Visit [facility] [address] [place] [address] Trinidad Emery, DMD [address] [place] [address] 02/13/2025 3:00 PM EST Office Visit [facility] [address] [place] [address] Verena Montes PA [address] [facility] [address] [place] [address] documented as of this encounter Procedures Procedure Name Priority Date/Time Associated Diagnosis Comments BIOPSY BONE MARROW Routine 10/03/2024 9: 00 AM EDT CML (chronic myelocytic leukemia) ([facility]/HCC) MYELOID FOCUSED PANEL, 50 GENE Routine 10/03/2024 8:48 AM EDT CML (chronic myelocytic leukemia) ([facility]/HCC) FISH, ONCOLOGY Routine 10/03/2024 8:48 AM EDT CML (chronic myelocytic leukemia) ([facility]/HCC) CYTOGENETICS TESTING, ONCOLOGY Routine 10/03/2024 8:48 AM EDT CML (chronic myelocytic leukemia) ([facility]/HCC) CHROMOSOME KARYOTYPE, ONCOLOGY Routine 10/03/2024 8:48 AM EDT CML (chronic myelocytic leukemia) ([facility]/HCC) LEUKEMIA/LYMPHOMA - IMMUNOPHENOTYPING BY FLOW CYTOMETRY Routine 10/03/2024 8:48 AM EDT CML (chronic myelocytic leukemia) ([facility]/HCC) BONE MARROW EXAM Routine 10/03/2024 8:48 AM EDT CML (chronic myelocytic leukemia) ([facility]/HCC) CBC WITH AUTO DIFFERENTIAL Routine 10/03/2024 8:18 AM EDT CML (chronic myelocytic leukemia) ([facility]/HCC) documented in this encounter Results * BIOPSY [...] to surronding structures. Alternatives discussed: Delayed treatment Bock protocol: Procedure explained and questions answered to [...] Type Bone Marrow 10/10/2024 2:57 PM EDT [facility] Clinical Indication Chronic Myelogenous Leukemia 10/10/2024 2:57 PM EDT [facility] Specimen Adequacy Adequate 025 2:57 PM EDT [facility] Interpretation ABL1/ASS1/BCR FISH: IMPRESSION: ABNORMAL Positive [...] cells with an additional copies of the Radford chromosome. Gain of a Ph chromosome is one of the common additional cytogenetic abnormalities (ACAs) in CML. Additional chromosomal abnormalities (ACAs) are frequent in CML patients, and are considered a hallmark of multistep disease progression, associated with an adverse prognostic effect during the progressive or advanced stages of CML (Marlee TUCKER et al., 2019. PMID: [id number]). 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 Clinical correlation is recommended. 10/10/2024 2:57 PM EDT [facility] ISCN nuc hilda(ABL1x3,ASS1x2, BCRx3)(ABL1 con ASS1x1)(ABL1 con ASS1 con BCRx1)(ABL1 con BCRx1)[144/200]/(A BL1x5,ASS1x4,BCRx5 )(ABL1 con ASS1x2)(ABL1 con ASS1 con BCRx2)(ABL1 con BCRx2)[200]/(ABL 1x6,ASS1x4,BCRx6)( ABL1 con ASS1x2)(ABL1 con ASS1 con BCRx2)(ABL1 con BCRx2)[200]/(ABL 1x4,ASS1x2,BCRx5)( ABL1 con ASS1x1)(ABL1 con ASS1 con [...] analyzed for a complete FISH test, and corporate sales representative images were captured and stored using [employer] software ([employer]). The normal controls ran in parallel with this specimen gave the expected hybridization results. The normal cutoffs for bone marrow and peripheral blood for marrow have been established in this lab by probe validation. 10/10/2024 2:57 PM EDT [facility] Disclaimer This test was developed and its performance characteristics determined by the [facility]etics [facility]. It has not been [...] perform high complexity clinical laboratory testing. See [id number] for the chromosome analysis results on this specimen. 10/10/2024 2:57 PM EDT [facility] Pathologist Signature Reviewed by: Og Duque 10/10/2024 2:57 PM EDT [facility] Bone Marrow Non-blood Collection / Unknown 10/03/2024 8:48 AM EDT 10/03/2024 10:49 AM EDT us Mk Pastrana MD LAB CYTOGENETICS ORDERABLES F inal Result [facility] [address] [place] [address] * Chromosome Karyotype, Oncology (10/03/2024 8:48 AM EDT) Specimen Type Bone Marrow 10/10/2024 5:48 PM EDT [facility] Clinical Indication Chronic Myelogenous Leukemia 10/10/2024 5:48 PM EDT [facility] Specimen Adequacy Adequate 025 5:48 PM EDT [facility] Chromosome Analysis Result Giemsa-banded metaphase cells from unstimulated bone marrow cultures showed the following chromosome pattern: 46,XX,t(9;22)(q 34.1;q11.2)[13] /47,XX,idem,+8[ 7] 10/10/2024 5:48 PM EDT [facility] Interpretation Abnormal female chromosome analysis. All metaphase [...] achieve complete cytogenetic and molecular remission ([facility] et al., 2022. PMID: [id number]). These findings also indicate progression of current condition. Clinical correlation is recommended. Note: Per [employer] [place] [employer] (CAP) requirement additional karyotypes were performed and charged due to the presence of clonal abnormalities. See [id number] for the FISH analysis results. # cells counted = 20 # cells analyzed = 20 # cells karyotyped = 4 Band resolution: 400-425 10/10/2024 5:48 PM EDT [facility] Pathologist Signature Reviewed by: Og Duque 10/10/2024 5:48 PM EDT [facility] Bone Marrow Non-blood Collection / Unknown 10/03/2024 8:48 AM EDT 10/03/2024 10:49 AM EDT us Mk Pastrana MD LAB CYTOGENETICS ORDERABLES F inal Result [facility] [address] [place] [address] * Myeloid Focused Panel, 50 gene (10/03/2024 8:48 AM EDT) Interpretation The following three (3) genes with persistent variants have been detected in this bone marrow specimen. These gene variants were detected on 06/15/2023. Gene: DNMT3A Mutation: c.1208delA; p.[id number] Allele Frequency (%): 43% Gene: ASXL1 Mutation: c.1934dupG; p.[id number] Allele Frequency (%): 26% ID: [id number] Gene: BCOR Mutation: c.4936delC; p.[id number] 8 Allele Frequency (%): 11% Additional Details on Mutation Identified: Gene Transcript Genome Chrom Coordinate RefVar DNMT3A [id number] Hg19 2 [id number] Jose ASXL1 [id number] Hg19 20 [id number] dupG BCOR [id number] Hg19 X [id number] delC 10/14/2024 5:04 PM EDT [facility] [...] then sequenced on the Illumina NextSeq 2000 ([employer] [place]). A custom bioinformatics pipeline aligns [...] of hematologic malignancies. 10/14/2024 5:04 PM EDT [facility] Disclaimer This test was developed and its performance characteristics determined by the Clinical Molecular and Genomic Pathology Laboratory at the [facility]. It has not been cleared or [...] clinical laboratory testing. 10/14/2024 5:04 PM EDT [facility] Pathologist Signature Reviewed by: Og Duque 10/14/2024 5:04 PM EDT [facility] Bone Marrow Specimen from bone marrow obtained by aspiration / Unknown Non-blood Collection / Unknown 10/03/2024 8:48 AM EDT 10/03/2024 10:21 AM EDT us Mk Pastrana MD LAB MOLECULAR DIAGNOSTICS ORD ERABLES Final Result [facility] [address] [place] [address], * Leukemia/Lymphoma - Immunophenotyping by Flow Cytometry (10/03/2024 8:48 AM EDT) Clinical Indication CML 10/03/2024 1:16 PM EDT [facility] Flow Cytometry Interpretation MIXED MARROW ELEMENTS WITHOUT EVIDENCE OF INCREASED BLASTS OR ABNORMAL LYMPHOID POPULATIONS, BONE MARROW ASPIRATE. 10/03/2024 1:16 PM EDT [facility] Comments Specimen viability is 88%. Flow [...] lymphoid populations. Final interpretation requires morphologic correlation ([id number]). The following antibodies were used in this analysis: CD45, CD2, CD3, CD4, CD5, CD7, CD8, CD10, CD13, CD14, CD15, CD16, CD19, CD20, CD33, CD34, CD38, CD56, CD117, HLA-DR, kappa surface light chains, lambda surface light chains 10/03/2024 1:16 PM EDT [facility] Disclaimer This test was developed and its performance characteristics determined by the Immuno-Molecular Pathology Laboratory at the [facility]. It has not been cleared or [...] clinical laboratory testing. 10/03/2024 1:16 PM EDT [facility] Pathologist Signature Reviewed by: Kathi Soria MD 10/03/2024 1:16 PM EDT [facility] MRD Indicated Test Not Indicated 1:16 PM EDT [facility] Bone Marrow Specimen from bone marrow obtained by aspiration / Unknown Non-blood Collection / Unknown 10/03/2024 8:48 AM EDT 10/03/2024 10:18 AM EDT us Mk Pastrana MD LAB FLOW CYTOMETRY ORDERABLES Final Result [facility] [address] [place] [address] * Bone marrow exam (10/03/2024 8:48 AM EDT) Case Report Bone Marrow Case: [id number] Authorizing Provider: Mk Pastrana MD Collected: 10/03/2024 0848 Ordering Location: [facility] Hematology/BMT and Received: 10/03/2024 0954 Cellular Therapy Program Pathologist: Kathi Soria MD Specimens: A) - Bone Marrow Aspirate, left B) - Bone Marrow Biopsy, left C) - Peripheral Blood for Bone Marrow 1:31 PM EDT [facility] Cytogenetics Report, Addendum Chromosome Analysis Result Giemsa-banded metaphase cells from unstimulated bone marrow cultures showed the following chromosome pattern: 46,XX,t(9;22)(q34. 1;q11.2)[13]/47,XX ,idem,+8[7] Interpretation Abnormal female chromosome analysis. All metaphase cells analyzed showed a t(9;22)(q34.1;q11. 2). This was a previous abnormality reported in a 06/15/23 bone marrow specimen from an outside hospital. 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 Trisomy 8 is one of the common major route additional chromosome abnormalities, reportedly to be associated with long er times to achieve complete cytogenetic and molecular remission (Cross [facility] et al., 2022. PMID: [id number]). These findings also indicate progression of current condition. 1:31 PM EDT [facility] Addendum electronically signed by Kathi Soria MD on 10/23/2024 at 1329 EDT FISH Analysis Report, Addendum Interpretation ABL1/ASS1/BCR FISH: IMPRESSION: ABNORMAL Positive for [...] cells with an additional copies of the Radford chromosome. Gain of a Ph chromosome is one of the common additional cytogenetic abnormalities (ACAs) in CML. Additional chromosomal abnormalities (ACAs) are frequent in CML patients, and are considered a hallmark of multistep disease progression, associated with an adverse prognostic effect during the progressive or advanced stages of CML (Marlee TUCKER et al., 2019. PMID: [id number]). 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 1:31 PM EDT [facility] Addendum electronically signed by Kathi Soria MD on 10/23/2024 at 1331 EDT Addendum Myeloid Focused Panel, 50 gene: [id number] Interpretation The following three (3) genes with persistent variants have been detected in this bone marrow specimen. These gene variants were detected on 06/15/2023. Gene: DNMT3A Mutation: c.1208delA; p.Zav840JffopTks9 Allele Frequency (%): 43% Gene: ASXL1 Mutation: c.1934dupG; p.[id number] Allele Frequency (%): 26% ID: [id number] Gene: BCOR Mutation: c.4936delC; p.[id number] 8 Allele Frequency (%): 11% 1:31 PM EDT [facility] Addendum electronically signed by Kathi Soria MD on 10/23/2024 at 1330 EDT Final Diagnosis BONE MARROW, LEFT POSTERIOR ILIAC CREST, (PERIPHERAL SMEAR, ASPIRATE SMEARS, AND CORE BIOPSY): -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 - MILD RETICULIN FIBROSIS (PATCHY GRADE 1); NO INCREASE IN BLASTS, SEE COMMENT. 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 In the current specimen, erythroid precursors show megaloblastoid changes. Granulopoiesis is reduced and left-shifted. Megakaryocytes are increased in some of the aspirate spicules and exhibit small hypolobated forms. There is no evidence of increased blasts or increased fibrosis in the current specimen. Clinical correlation is recommended. 1:31 PM EDT [facility] Clinical Information CML (Radford positive) Now worsening neutropenia and thrombocytopenia 1:31 PM EDT [facility] CBC and Differential PERIPHERAL BLOOD: 10/03/2024: [...] reduced in number and show normal morphology. 1:31 PM EDT [facility] Bone Marrow Differential BONE MARROW DIFFERENTIAL: 300 cells Normal Patient Neutrophils 15-50 9 Metamyelocytes 4-19 9 Myelocytes 1-18 13 Promyelocytes 1-8 10 Blasts 0-2 1 Monocytes 0-5 2 Erythroid 16-38 50 Lymphocytes 3-24 2 Eosinophils 0-6 2 Basophils 0-2 1 Plasma cells 0-4 1 Other 1:31 PM EDT [facility] Bone Marrow Aspirate and Biopsy Core [...] granulomas are identified. Bone trabeculae are unremarkable. 1:31 PM EDT [facility] Special and Immunohistochemical Stains Immunohistochemica l stains [...] the [facility] Clinical Laboratory, [address] [place] [address]. All tests reported here, except those addressing [...] likelihood of false negativity on decalcified specimens. 1:31 PM EDT [facility] Flow Cytometry Interpretation MIXED MARROW ELEMENTS WITHOUT EVIDENCE OF INCREASED BLASTS OR ABNORMAL LYMPHOID POPULATIONS, BONE MARROW ASPIRATE ([id number]). 1:31 PM EDT [facility] CYTOGENETICS/MOLECUL AR INTERPRETATION Correlation with cytogenetics/FISH/ molecular analysis is suggested. 1:31 PM EDT [facility] Gross Description B. LEFT A single specimen is received in formalin labeled bone marrow biopsy left posterior iliac crest and consists of 2 piece(s) of red/white tissue measuring 0.4/0.6 cm in length 0.2 cm in diameter. The specimen is submitted in to Histology for decalcification and routine processing. Cold Time: 1m 1:31 PM EDT [facility] Note: A resident was involved in the service. I attest I examined the relevant preparations for the specimens and confirmed the diagnosis or interpretation. 1:31 PM EDT [facility] Bone Marrow Peripheral blood specimen / [...] EDT Mk Pastrana MD LAB PATHOLOGY ORDERABLES Edit ed Result - Final [facility] [address] [place] [address] * (ABNORMAL) CBC and Differential (10/03/2024 8:18 AM EDT) WBC Count 1.93(L) 3.70 - 10.30 10*3/uL LAB HEMATOLOGY METHOD 10/03/2024 8:44 AM EDT [facility] RBC Count 3.42(L) 3.90 - 5.20 10*6/uL LAB HEMATOLOGY METHOD 10/03/2024 8:44 AM EDT [facility] HGB 11.2 11.2 - 15.7 g/dL LAB HEMATOLOGY METHOD 10/03/2024 8:44 AM EDT [facility] HCT 34.0 34.0 - 45.0 % LAB HEMATOLOGY METHOD 10/03/2024 8:44 AM EDT [facility] Platelet Count 94(L) 155 - 369 10*3/uL LAB HEMATOLOGY METHOD 10/03/2024 8:44 AM EDT [facility] MCV 99(H) 79 - 98 fL LAB HEMATOLOGY METHOD 10/03/2024 8:44 AM EDT [facility] MCH 32.7(H) 26.0 - 32.0 pg LAB HEMATOLOGY METHOD 10/03/2024 8:44 AM EDT [facility] MCHC 32.9 30.7 - 35.5 g/dL LAB HEMATOLOGY METHOD 10/03/2024 8:44 AM EDT [facility] RDW 17.4(H) 11.5 - 14.5 % LAB HEMATOLOGY METHOD 10/03/2024 8:44 AM EDT [facility] MPV 10.3 8.8 - 12.5 fL LAB HEMATOLOGY METHOD 10/03/2024 8:44 AM EDT [facility] nRBC 1.0(H) <=0.0 per 100 WBCs LAB HEMATOLOGY METHOD 10/03/2024 8:44 AM EDT [facility] Differential Type Automated LAB HEMATOLOGY METHOD 10/03/2024 8:44 AM EDT [facility] Neutrophils % 25 % LAB HEMATOLOGY METHOD 10/03/2024 8:44 AM EDT [facility] Lymphocytes % 66 % LAB HEMATOLOGY METHOD 10/03/2024 8:44 AM EDT [facility] Monocytes % 6 % LAB HEMATOLOGY METHOD 10/03/2024 8:44 AM EDT [facility] Eosinophils % 1 % LAB HEMATOLOGY METHOD 10/03/2024 8:44 AM EDT [facility] Basophils % 1 % LAB HEMATOLOGY METHOD 10/03/2024 8:44 AM EDT [facility] Immature Granulocytes % 1 % LAB HEMATOLOGY METHOD 10/03/2024 8:44 AM EDT [facility] Neutrophils Absolute 0.48(LL) 1.60 - 6.10 10*3/uL LAB HEMATOLOGY METHOD 10/03/2024 8:44 AM EDT [facility] Lymphocytes Absolute 1.28 1.20 - 3.90 10*3/uL LAB HEMATOLOGY METHOD 10/03/2024 8:44 AM EDT [facility] Monocytes Absolute 0.11(L) 0.30 - 0.90 10*3/uL LAB HEMATOLOGY METHOD 10/03/2024 8:44 AM EDT [facility] Eosinophils Absolute 0.02 0.00 - 0.50 10*3/uL LAB HEMATOLOGY METHOD 10/03/2024 8:44 AM EDT [facility] Basophils Absolute 0.02 0.00 - 0.10 10*3/uL LAB HEMATOLOGY METHOD 10/03/2024 8:44 AM EDT [facility] Immature Granulocytes Absolute 0.02 0.00 - 0.06 10*3/uL LAB HEMATOLOGY METHOD 10/03/2024 8:44 AM EDT [facility] Blood Venous blood specimen / Unknown Venipuncture / Unknown 10/03/2024 8:18 AM EDT 10/03/2024 8:34 AM EDT Narrative [facility] - 10/03/2024 8:44 AM EDT Therapeutic decision making should be based on absolute values, rather than percentages. us Bhavana Bella APRN LAB BLOOD ORDERABLES Final Result [facility] [address] [place] [address] documented in this encounter Visit Diagnoses Diagnosis [...] documented as of this encounter Care Teams Java Software Developer Relationship Specialty Start Date End Date Willi Frost MD [address] [place] [address] [address] [place] [address] PCP - General 06/11/24 documented as of this encounter
--- OUTSIDE RECORDS SUMMARY | 2024-10-08 09:30 | XMS_ITS | Encounter Summary ---
Author Organization [facility] Address [address] [place] [address] Care Team Providers Care Wafer Polishing Worker Name Role Phone Willi Frost MD Primary Care Provider Encounter Details Date Type Department Care Team (Late Contact Info) Description 10/08/2024 9:30 AM EDT Office Visit [facility]ology/BMT and Cellular Therapy Program [address] [phone] Social History Tobacco Use Types [...] CC Hematology/BMT and Cellular Therapy Program [address] [phone] 11/27/2024 11:30 AM EDT Office Visit [facility]ology/BMT and Cellular Therapy Program [address] [phone] Catrachita Dior PA [address] [facility] [address] [place] [address] 11/27/2024 1:30 PM EDT Clinical Support [facility] [address] [place] [phone] 12/04/2024 9:15 AM EDT Office Visit [facility] [address] [place], [place] [phone] Trinidad Emery, DMD [address] [place] [address] 02/13/2025 3:00 PM EST Office Visit [facility] [address] [place] [phone] [place] [address] [place] [address] [address] [place] [address] documented as of this encounter Visit Diagnoses Not on filedocumented in this encounter Additional Health Concerns Assessment Noted Time A Body Mass Index follow-up plan has been documented for the patient 09/11/2024 6:12 PM EDT documented as of this encounter Care Teams Wafer Polishing Worker Relationship Specialty Start Date End Date Willi Frost MD [address] [place] [address] Path [facility] [address] [place] [address] PCP - General 06/11/24 documented as of this encounter
--- OUTSIDE RECORDS SUMMARY | 2024-10-08 10:00 | XMS_ITS | Encounter Summary ---
Author Organization [facility] Address [address] [place] [address] Care Team Providers Care Hat Mender Name Role Phone Willi Frost MD Primary Care Provider Reason for Referral * Consultation (Urgent) - Closed Specialty Diagnoses / Procedures Referred By Contac t Referred To Contact Infectious Diseases Diagnoses Acquired syphilis Mk Pastrana MD 800 [facility] [address] [address] Phone: tel: fax: Referral ID Status Reason Start Date Expiration Date V isits Requested Visits Authorized [id number] Closed Specialty Services Required 10/08/2024 04/09/2026 1 1 Encounter Details Date Type Department Care Team (Latest Contact Info) Description 10/08/2024 10:00 AM EDT Office Visit [facility] Hematology/BMT and Cellular Therapy Program [address] [place] [address] Mk Pastrana MD 800 [facility] [address] [address] CML (chronic myelocytic leukemia) (CMS/HCC) [...] : 1970 REFERRING PHYSICIAN: Mk Pastrana MD [address] [place] [phone] Encounter Date: 10/08/2024 Patient Care Team: Willi [...] - Peripheral blood flow cytometry performed in [place] for leukocytosis revealed 3% myeloblasts with maturing [...] lesions 06/15/23 - Bone marrow biopsy in [place] was consistent with chronic myeloid leukemia with [...] and established care with Fredrick Bateman in [place], [place], for hematology/oncology follow-up. By that point, the patient had been on nilotinib 300 mg p.o. twice daily for several weeks. CBC with differential was normal. BCR-ABL testing on peripheral bloodrevealed PCR positivity of 26.98% (b2a2 transcript), 17.66% (B3 A2 transcript, D314-lezpo), and 0.0403% (ela2, L821-lpypb transcript). The recommendation was to continue current therapy. 11/22/23 - Transferred care to [facility] hematology/oncology. 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 After relocating to [place] in October 2023, she established care locally [...] and BCR-ABL1 kinase domain analysis identified a [id number] deletion. No mutations were found at common [...] edema. I also discussed the risk of rdwxx-ssiytm-aibr disease (acute or chronic), which may require [...] weeks Continue transplant workups Mk Pastrana M.D. Forming And Assembling Supervisor Division of Hematology/BMT [facility] * Progress Notes - Jojo Iyer, [...] 150 mgQPM. She transferred her care to [place] in October 2023 and was found have [...] ABL1 International Scale (Percent) 45.9300 See Note 31.3465 20.4852 Treatment/Therapy Plan: Ponatinib 45 mg PO QD [...] at that time. Pharmacist Attestation: Jojo Iyer PharmD 10/08/2024 11:57 AM documented in this encounter Plan of Treatment Upcoming Encounters Date Type Department Care Team (Late st Contact Info) Description 11/27/2024 11:00 AM EDT Clinical Support [facility] Hematology/BMT and Cellular Therapy Program [address] [address] 11/27/2024 11:30 AM EDT Office Visit [facility] Hematology/BMT and Cellular Therapy Program [address] [place] [phone] Catrachita Dior PA 800 [facility] [address] [address] 11/27/2024 1:30 PM EDT Clinical Support [address] [phone] 12/04/2024 9:15 AM EDT [facility] Visit [facility] [address] [place], [place] [phone] Trinidad Emery, DMD 800 [place], [place] [phone] 02/13/2025 3:00 PM EST Office Visit [address] [phone] Verena Montes PA [address] [facility] 100 [place] [phone] Scheduled Referrals Name Type Priority Associated Diagnoses [...] Pos 1:1(A) <1:1 10/09/2024 2:18 AM EDT [facility] Blood Venous blood specimen / Unknown Venipuncture / Unknown 10/08/2024 9:39 AM EDT 10/08/2024 9:57 AM EDT us Ayman H Qasrawi MD LAB BLOOD ORDERABLES Final Re sult [facility] [address] [place] [address] * (ABNORMAL) RPR Screening with Rflex to Titer (10/08/2024 9:39 AM EDT) Rapid Plasma Reagin Reactive( A) Non Reactive 10/09/2024 1:33 AM EDT [facility] Blood Venous blood specimen / Unknown Venipuncture / Unknown 10/08/2024 9:39 AM EDT 10/08/2024 9:57 AM EDT Mk Pastrana MD LAB BLOOD ORDERABLES Final Re sult Performing Organization Address [facility] Co de Phone Number [facility] [address] [place] [address] * (ABNORMAL) Treponema Pallidum (Syphilis) Antibodies with Reflex to RPR and RPR Titer (Those with NOknown Syphilis) (10/08/2024 9:39 AM EDT) [facility] Syphilis Antibody (IgG+IgM) Reactive( A) Nonreactive 10/08/2024 12:31 PM EDT [facility] Comment:Result suggests infe ction [...] ORDERABLES Final Re sult Performing Organization Address City/[facility]/ZIP Co de Phone Number [facility] [address] [place] [address] * Lactate Dehydrogenase, Plasma (10/08/2024 9:39 AM EDT) Pathologist [facility], Plasma 238 116 - 250 U/L 10/08/2024 10:32 AM EDT [facility] Comment:Hemolyzed, result ma y be falsely increased. Blood Venous blood specimen / Unknown Venipuncture / Unknown 10/08/2024 9:39 AM EDT 10/08/2024 9:57 AM EDT Mk Pastrana MD LAB BLOOD ORDERABLES Final Re sult Performing Organization Address [facility]/ZIP Co de Phone Number [facility] [address] [place] [address] * Lipase, Plasma (10/08/2024 9:39 AM EDT) Lipase, Plasma 31 19 - 63 U/L 10/08/2024 10:32 AM EDT [facility] Blood Venous blood specimen / Unknown Venipuncture / Unknown 10/08/2024 9:39 AM EDT 10/08/2024 9:57 AM EDT kM Pastrana MD LAB BLOOD ORDERABLES Final Re sult Performing Organization Address [facility] Co de Phone Number [facility] [address] [place] [address] * Amylase, Plasma (10/08/2024 9:39 AM EDT) Amylase 43 27 - 114 U/L 10/08/2024 10:32 AM EDT [facility] Blood Venous blood specimen / Unknown Venipuncture / Unknown 10/08/2024 9:39 AM EDT 10/08/2024 9:57 AM EDT Mk Pastrana MD LAB BLOOD ORDERABLES Final Re sult Performing Organization Address City/[facility] Co de Phone Number [facility] [address] [place] [address] * Comprehensive Metabolic Panel, Plasma (10/08/2024 9:39 AM EDT) Glucose, Plasma 90 74 - 99 mg/dL 10/08/2024 10:32 AM EDT [facility] BUN, Plasma 10 7 - 21 mg/dL 10/08/2024 10:32 AM EDT [facility] Creatinine, Plasma 0.65 0.60 - 1.10 mg/dL 10/08/2024 10:32 AM EDT [facility] BUN/Creatinine Ratio 15 10/08/2024 10:32 AM EDT [facility] Sodium, Plasma 142 136 - 145 mmol/L 10/08/2024 10:32 AM EDT [facility] Potassium, Plasma 4.3 3.6 - 4.9 mmol/L 10/08/2024 10:32 AM EDT [facility] Chloride, Plasma 107 97 - 107 mmol/L 10/08/2024 10:32 AM EDT [facility] CO2, Plasma 22 22 - 29 mmol/L 10/08/2024 10:32 AM EDT [facility] Anion Gap 13 6 - 16 mmol/L 10/08/2024 10:32 AM EDT [facility] Total Calcium, Plasma 9.5 8.9 - 10.2 mg/dL 10/08/2024 10:32 AM EDT [facility] Total Protein 7.5 6.3 - 7.9 g/dL 10/08/2024 10:32 AM EDT [facility] Albumin, Plasma 4.8 3.5 - 5.2 g/dL 10/08/2024 10:32 AM EDT [facility] AST, Plasma 22 10 - 35 U/L 10/08/2024 10:32 AM EDT [facility] ALT, Plasma 21 10 - 35 U/L 10/08/2024 10:32 AM EDT [facility] Alkaline Phosphatase, Plasma 104 35 - 104 U/L 10/08/2024 10:32 AM EDT [facility] Total Bilirubin, Plasma 1.0 0.2 - 1.1 mg/dL 10/08/2024 10:32 AM EDT [facility] eGFRcr 106.1 mL/min/1.7 3m*2 10/08/2024 10:32 AM EDT [facility] Comment:Reported eGFRcr in m L/min/1.73m2 is based the CKD-EPI 2020 equation that does not use a race coefficient. Blood Venous blood specimen / Unknown Venipuncture / Unknown 10/08/2024 9:39 AM EDT 10/08/2024 9:57 AM EDT Mk Pastrana MD LAB BLOOD ORDERABLES Final Re sult [facility] [address] [place] [address] * (ABNORMAL) CBC and Differential (10/08/2024 9:39 AM EDT) [facility] WBC Count 2.43(L) 3.70 - 10.30 10*3/uL LAB HEMATOLOGY METHOD 10/08/2024 10:04 AM EDT [facility] RBC Count 3.97 3.90 - 5.20 10*6/uL LAB HEMATOLOGY METHOD 10/08/2024 10:04 AM EDT [facility] HGB 12.9 11.2 - 15.7 g/dL LAB HEMATOLOGY METHOD 10/08/2024 10:04 AM EDT [facility] HCT 39.2 34.0 - 45.0 % LAB HEMATOLOGY METHOD 10/08/2024 10:04 AM EDT [facility] Platelet Count 124(L) 155 - 369 10*3/uL LAB HEMATOLOGY METHOD 10/08/2024 10:04 AM EDT [facility] MCV 99(H) 79 - 98 fL LAB HEMATOLOGY METHOD 10/08/2024 10:04 AM EDT [facility] MCH 32.5(H) 26.0 - 32.0 pg LAB HEMATOLOGY METHOD 10/08/2024 10:04 AM EDT [facility] MCHC 32.9 30.7 - 35.5 g/dL LAB HEMATOLOGY METHOD 10/08/2024 10:04 AM EDT [facility] RDW 17.5(H) 11.5 - 14.5 % LAB HEMATOLOGY METHOD 10/08/2024 10:04 AM EDT [facility] MPV 10.7 8.8 - 12.5 fL LAB HEMATOLOGY METHOD 10/08/2024 10:04 AM EDT [facility] nRBC 0.0 <=0.0 per 100 WBCs LAB HEMATOLOGY METHOD 10/08/2024 10:04 AM EDT [facility] Differential Type Automated LAB HEMATOLOGY METHOD 10/08/2024 10:04 AM EDT [facility] Neutrophils % 38 % LAB HEMATOLOGY METHOD 10/08/2024 10:04 AM EDT [facility] Lymphocytes % 51 % LAB HEMATOLOGY METHOD 10/08/2024 10:04 AM EDT [facility] Monocytes % 8 % LAB HEMATOLOGY METHOD 10/08/2024 10:04 AM EDT [facility] Eosinophils % 1 % LAB HEMATOLOGY METHOD 10/08/2024 10:04 AM EDT [facility] Basophils % 1 % LAB HEMATOLOGY METHOD 10/08/2024 10:04 AM EDT [facility] Immature Granulocytes % 1 % LAB HEMATOLOGY METHOD 10/08/2024 10:04 AM EDT [facility] Neutrophils Absolute 0.92(LL) 1.60 - 6.10 10*3/uL LAB HEMATOLOGY METHOD 10/08/2024 10:04 AM EDT [facility] Lymphocytes Absolute 1.25 1.20 - 3.90 10*3/uL LAB HEMATOLOGY METHOD 10/08/2024 10:04 AM EDT [facility] Monocytes Absolute 0.19(L) 0.30 - 0.90 10*3/uL LAB HEMATOLOGY METHOD 10/08/2024 10:04 AM EDT [facility] Eosinophils Absolute 0.02 0.00 - 0.50 10*3/uL LAB HEMATOLOGY METHOD 10/08/2024 10:04 AM EDT [facility] Basophils Absolute 0.03 0.00 - 0.10 10*3/uL LAB HEMATOLOGY METHOD 10/08/2024 10:04 AM EDT [facility] Immature Granulocytes Absolute 0.02 0.00 - 0.06 10*3/uL LAB HEMATOLOGY METHOD 10/08/2024 10:04 AM EDT [facility] Blood Venous blood specimen / Unknown Venipuncture / Unknown 10/08/2024 9:39 AM EDT 10/08/2024 9:58 AM EDT Narrative [facility] - 10/08/2024 10:04 AM EDT Therapeutic decision making should be based on absolute values, rather than percentages. us Mk Pastrana MD LAB BLOOD ORDERABLES Final Re sult [facility] [address] [place] [phone] documented in this encounter Visit Diagnoses Diagnosis CML (chronic myelocytic leukemia) (CMS/HCC)- Primary Chronic myeloid leukemia, without mention of having achieved remission Encounter for antineoplastic chemotherapy Acquired syphilis Unspecified syphilis documented in this encounter Additional Health Concerns Assessment Noted Time A Body Mass Index follow-up plan has been documented for the patient 09/11/2024 6:12 PM EDT documented as of this encounter Care Teams Hat Mender Relationship Specialty Start Date End Date Willi Frost MD [address] [place] [address] PCP - General 06/11/24 documented as of this encounter
--- OUTSIDE RECORDS SUMMARY | 2024-10-30 08:00 | XMS_ITS | Encounter Summary ---
Author Organization [facility] Address [address] [place] [address] Care Team Providers Care Cheese Specialist Name Role Phone Willi Frost MD Primary Care Provider Reason for Visit * Reason Comments Labs Only Encounter Details Date Type Department Care Team ([facility] Contact Info) Description 10/30/2024 8:00 AM EDT Clinical Support [facility] Hematology/BMT and Cellular Therapy Program [address] [place] [phone] Gisselle Shaffer RN [facility] Social History Tobacco Use Types Packs/Day Years Used Date Smoking Tobacco: Former Cigarettes Smokeless Tobacco: Never PHQ-2 Answer Date Recorded Patient Health Questionnaire-2 Score 0 10/30/2024 Comments No Sex and Gender Information Value Date Recorded Sex Assigned at Female 06/07/2024 5:58 PM EST Legal Sex Female 12:57 PM EST Gender Identity Female 06/07/2024 5:58 PM EST Sexual Orientation Not on file documented as of this encounter Plan of Treatment Upcoming Encounters Date Type Department Care Team ([facility] Contact Info) Description 11/27/2024 11:00 AM EDT Clinical Support [facility] Hematology/BMT and Cellular Therapy Program 750 [facility], [address] [place] [phone] 11/27/2024 11:30 AM EDT Office Visit [facility] Hematology/BMT and Cellular Therapy Program [address] [phone] Catrachita Dior PA 800 [facility] [address] [place] [address] 11/27/2024 1:30 PM EDT Clinical Support [facility] [address] [place] [phone] 12/04/2024 9:15 AM EDT [facility] [address] [place], [place] [phone] Trinidad Emery, DMD [address] [place], [place] [phone] 02/13/2025 3:00 PM EST Office Visit [facility] [address] [place] [phone] Verena Montes PA 3101 [facility] [address] [place] [phone] documented as of this encounter Visit Diagnoses Not on filedocumented in this encounter Additional Health Concerns Assessment Noted Time A fall risk assessment has been complete d for the patient 10/30/2024 8:42 AM EDT A Body Mass Index follow-up plan has been documented for the patient 09/11/2024 6:12 PM EDT documented as of this encounter Care Teams Cheese Specialist Relationship Specialty Start Date End Date Willi Frost MD [address] [place] [address] Path [facility] [address] [place], [place] [phone] PCP - General 06/11/24 documented as of this encounter
--- OUTSIDE RECORDS SUMMARY | 2024-10-30 08:30 | XMS_ITS | Encounter Summary ---
Author Organization [facility] Address [address] [place] [address] Care Team Providers Care Cinder Pitman Name Role Phone Willi Frost MD Primary Care Provider [phone] Reason for Referral * Genetic Testing (Urgent) - Closed Specialty Diagnoses / Procedures Referred By Contac t Referred To Contact Lab Diagnoses CML (chronic myelocytic leukemia) (CMS/HCC) Procedures Quant Detection of BCR-ABL1 Major (p210) (SO) Mk Pastrana MD 800 [facility] [address] [address] Phone: tel: fax: Referral ID Status Reason Start Date Expiration Date Visits Re quested Visits Authorized [id number] Closed 10/30/2024 05/01/2026 1 1 * Genetic Testing (Routine) - Closed Specialty Diagnoses / Procedures Referred By Contac t Referred To Contact Lab Diagnoses CML (chronic myelocytic leukemia) ([facility]/HCC) Procedures Quant Detection of BCR-ABL1 Major (p210) (SO) Radha Morelos APRN [address] [address] Phone: tel: fax: Referral ID Status Reason Start Date Expiration Date Visits Re quested Visits Authorized [id number] Closed 10/29/2024 04/30/2026 1 1 Reason for Visit * Reason Comments Follow-up UTI * Genetic Testing (Routine) - Closed Specialty Diagnoses / Procedures Referred By Akosua linda Referred To Contact Lab Diagnoses CML (chronic myelocytic leukemia) (CMS/HCC) Procedures Quant Detection of BCR-ABL1 Major (p210) (SO) Radha Morelos APRN 800 [facility] [address] [address] Phone: tel: fax: Referral ID Status Reason Start Date Expiration Date Visits Re quested Visits Authorized [id number] Closed 10/29/2024 04/30/2026 1 1 Encounter Details Date Type Department Care Team ([facility] st Contact Info) Description 10/30/2024 8:30 AM EDT Office Visit [facility] Hematology/BMT and Cellular Therapy Program [address] [facility] [place] [address] Radha Morelos APRN 800 [facility] [address] [phone] CML (chronic myelocytic leukemia) (CMS/HCC) (Primary Dx) [...] Sign Reading Time Taken Comments Blood Pressure 133/97 10/30/2024 8:45 AM EDT Pulse 75 10/30/2024 8:45 AM EDT Temperature 37.1 C (98.8 F) 10/30/2024 8:45 AM EDT Respiratory Rate - - Oxygen Saturation 99% 10/30/2024 8:45 AM EDT Inhaled Oxygen Concentration - - Weight 58.9 kg (129 lb 13.6 oz) 10/30/2024 8:45 AM EDT Height 167.6 cm (5' 6 ) 10/30/2024 8:45 AM EDT Body Mass Index 20.96 10/30/2024 8:45 AM EDT documented in this encounter Functional Status * Over the past 2 weeks, how often have you been bothered by any of the following problems? Question Answer Date of Assessment Author Little interest or pleasure in doing things Not at all 10/30/2024 8:42 AM EDT Tracee Jonas Feeling down, depressed, or hopeless Not at all 10/09 8:42 AM EDT Tracee Jonas Patient Health Questionnaire-2 Score 0 10/09 8:42 AM EDT Tracee Jonas * Calculated C-SSRS Risk Score (Lifetime/Recent) Answer Date of Assessment Author No Risk Indicated 10/30/2024 8:42 AM EDT Tracee Jonas * Question Answer Date of Assessment Author 1. Wish to be (Past 1 Month) No 025 8:42 AM EDT Tracee Jonas 2. Non-Specific Active Suici yonatan Thoughts (Past 1 Month) No 10/30/2024 8:42 AM GIOVANNIT Tracee Jonas 6. Suicidal Behavior (Lifetime) No 8:42 AM GIOVANNIT Tracee Jonas documented as of this encounter Miscellaneous Notes * Progress Notes - Radha Morelos APRN - 10/30/2024 8:30 AM EDT Patient Information Patient Name: Amita Ortiz Date of : 1970 REFERRING PHYSICIAN: Radha Morelos APRN 800 [facility] [address] [address] Encounter Date: 10/30/2024 Patient Care Team: Willi Frost MD as PCP - General Chief Complaint Patient presents with Follow-up UTI Hematologic History Cancer Staging No matching staging information was found for the patient. Amita Otriz is a 54 y.o. who presents today [...] and established care with Fredrick Bateman in [place], [place], for hematology/oncology follow-up. By that point, the patient had been on nilotinib 300 mg p.o. twice daily for several weeks. CBC with differential was normal. BCR-ABL testing on peripheral bloodrevealed PCR positivity of 26.98% (b2a2 transcript), 17.66% (B3 A2 transcript, [id number]), and 0.0403% (ela2, S141-bvdri transcript). The recommendation was to continue current therapy. 11/22/23 - Transferred care to [facility] hematology/oncology. The recommendation was to continue [...] p210 copy 08/20/2024- BCR-ABL1 PCR is 31.595%. 09/10/2024- BCR ABL1 PCR 20.4857%. HOLD asciminib 40 mg/day due to worsening neutropenic and thrombocytopenic today. Gave GCSF. 10/08/2024: Started ponatinib 45mg daily Past Medical, Surgical, Family and Social History [...] no known allergies. Medications Current Outpatient Medications: PONATinib (Iclusig) 45 MG chemo tablet, Take 1 tablet (45 mg total) by mouth daily. Take with or without food. Swallowed whole., Disp: 30 tablet, Rfl: 1 cetirizine (ZyrTEC) 10 MG tablet, Take 1 tablet by mouth daily. (Patient not taking: Reported on 10/30/2024), Disp: 7 tablet, Rfl: 0 Subjective Interval History: Mrs. Ortiz presents today on follow up after starting ponatinib. She reports she is feeling well today. She is tolerating the new medication well with minimal side effects. She notes she had one day of swelling in her LLE that resolved on it's own. No swelling present on exam today. She specifically denies any fevers, infections, night sweats, chest pain and palpitations. She is overall feeling well. She is not currently taking asciminib. Denies fever or infection, shortness of breath, n/v/d. She Review of Systems: 14- point ROS is reviewed and negative except in HPI. Objective Performance Status ECOG 1 KPS 90 Visit Vitals BP (!) 133/97 (BP Location: Left arm, Patient Position: Sitting, BP Cuff Size: Adult) Pulse 75 Temp 37.1 ??C (98.8 ??F) (Oral) BSA: Estimated body surface area is 1.66 meters squared as calculated from the following: Height as of this encounter: 1.676 m (5' 6 ). Weight as of this encounter: 58.9 kg (129 lb 13.6 oz). EXAM Physical Examination: General: appears stated age, no acute distress Skin: No rashes, no lesions. Head: normocephalic, atraumatic. Eyes: EOMI. Conjunctivae are pink and moist, non-erythematous. Sclera anicteric, noninjected. Lymph Nodes: No lymphadenopathy. Pulmonary: Breathing is non-labored. No cough. Lung sounds are CTA throughout bilaterally, no wheezes, rhonchi or crackles. Cardiovascular: regular heart rate and rhythm. No murmurs/rubs. Abdomen: non-distended. Extremities: No peripheral edema. Neurological: Alert and oriented x 3. Responds to verbal commands. Psychiatric: Appropriate mood and behavior. Good eye contact. Investigations LABORATORIES AND STUDIES: reviewed by me personally Lab Results Component Value Date WBC 3.45 (L) 10/30/2024 RBC 4.11 10/30/2024 HGB 13.0 10/30/2024 HCT 39.2 10/30/2024 MCV 95 10/30/2024 MCHC 33.2 10/30/2024 RDW 15.5 (H) 10/30/2024 PLT 135 (L) 10/30/2024 MPV 10.6 10/30/2024 Lab Results Component Value Date BUN 10 10/30/2024 CL 106 10/30/2024 NA 141 10/30/2024 K 4.9 10/30/2024 TP 7.3 10/30/2024 AST 21 10/30/2024 ALT 21 10/30/2024 Assessment and Plan: Assessment/Plan Accelerated-phase chronic myeloid [...] the evening by mid-August. After relocating to [place] in October 2023, she established care locally [...] was 31.595%, and 20.48% on 09/10/24 Asciminib discontinued 10/08/24 due to thrombocytopenia and neutropenia Started Ponatinib 45mg daily 10/08/24 Plan: -Continues ponatinib 45mg daily -Submitted for BCR ABL to be drawn (pending insurance approval) - The plan is to reassess clinical response and tolerance, and to consider dose reduction to 15-30 mg daily once an adequate molecular response is achieved, in line with current treatment guidelines. - Continue donor search and transplant workups. -RTC 4 weeks Allogenic transplant discussion: Dr. Pastrana previously discussed [...] edema. I also discussed the risk of edtel-uuzmnf-skwn disease (acute or chronic), which may require [...] full tooth extraction on 09/11/2024 RTC in 4 weeks Continue transplant workups Will drawn BCR ABL upon insurance approval MARCY Mckeon [facility] HEMATOLOGY/BMT AND CELLULAR THERAPY PROGRAM [address] [place] [phone] / * Progress Notes - Jojo Iyer, PharmD - 10/30/2024 8:30 AM EDT Pharmacy Hematology/Oncology Treatment Note Amita Ortiz is a 54 y.o. female with CML Study Patient: no Treatment Plan reviewed [...] 150 mgQPM. She transferred her care to [place] in October 2023 and was found have [...] ponatinib therapy while undergoing allogeneic HSCT work-up. 10/30/24: Patient tolerating ponatinib therapy. BCR-ABL not approved, but patient will return for lab draw once approved by insurance. Labs were reviewed and are appropriate for continuation. Today's Wt: Wt Readings from Last 1 Encounters: 10/30/24 58.9 kg (129 lb 13.6 oz) Dosing Wt: n/a Dosing Ht: n/a DosingBSA: n/a Recent Labs: Lab Results Component Value Date WBC 3.45 (L) 10/30/2024 HGB 13.0 10/30/2024 HCT 39.2 10/30/2024 MCV 95 10/30/2024 PLT 135 (L) 10/30/2024 Lab Results Component Value Date GLUCOSE 86 10/30/2024 CALCIUM 9.4 10/30/2024 NA 141 10/30/2024 K 4.9 10/30/2024 CO2 24 10/30/2024 CL 106 10/30/2024 BUN 10 10/30/2024 CREATININE 0.81 10/30/2024 Lab Results Component Value Date ALT 21 10/30/2024 AST 21 10/30/2024 ALKPHOS 127 (H) 10/30/2024 BILITOT 0.7 10/30/2024 Lab Results Component Value Date NEUTROABS 2.05 10/30/2024 Lab Results Component Value Date MG 2.1 09/10/2024 Lab Results Component Value Date TSH 1.01 09/25/2024 No results found for: URINEPRO Vitals: Visit Vitals BP (!) 133/97 (BP Location: Left arm, Patient Position: Sitting, BP Cuff Size: Adult) Pulse 75 Temp 37.1 ??C (98.8 ??F) (Oral) Other Relevant Monitorin04/30/24 Hep C Ab (+) 04/30/24 Hep C PCR (pending) 04/30/24 Qtc: 450 ms BCR-ABL: 05/07/24 13:26 07/24/24 10:56 08/20/24 09:00 09/10/24 11:12 BCR ABL1 Major (p210) Result Detected ! High Positive Detected ! Detected ! BCR ABL1 International Scale (Percent) 45.9300 See Note 31.5955 20.4857 Treatment/Therapy Plan: Ponatinib 45 mg PO QD [x] No dose adjustments Current Treatment Plan History: Ponatinib initiated 10/2024 Prior Treatment History: Hydrea cytoreduction (06/2023) Dasatinib (06/2023) - discontinued d/t rash Nilotinib 06/2023 - 04/2024 Asciminib 80 mg (04/30/2024 - 06/11/24) Asciminib 40 mg (07/15/24 - 10/02 Plan: Patient will return to clinic in 4 weeks. Will follow-up at that time. Pharmacist Attestation: Jojo Iyer, Yoli 10/30/2024 9:55 AM documented in this encounter Plan of Treatment Upcoming Encounters Date Type Department Care Team (Late st Contact Info) Description 11/27/2024 11:00 AM EDT Clinical Support [facility] Hematology/BMT and Cellular Therapy Program [address] [place] [address] 11/27/2024 11:30 AM EDT Office Visit [facility] Hematology/BMT and Cellular Therapy Program [address] [place] [address] Catrachita Dior PA 800 [facility] [address] [place] [address] 11/27/2024 1:30 PM EDT Clinical Support [facility] [address] [place] [address] 12/04/2024 9:15 AM EDT Office Visit [facility] [address] [place], [place] [phone] Trinidad Emery, STEPHANIE [address] [place] [address] 02/13/2025 3:00 PM EST Office Visit [facility] [address] [place] [phone] Verena Montes PA [address] [facility] [address] [place] [phone] documented as of this encounter Procedures Procedure Name Priority Date/Time Associated Diagnosis Comments HLA ANTIBODY TESTING (LSA) Routine 10/30/2024 8:20 AM EDT CML (chronic myelocytic leukemia) (CMS/HCC) CBC WITH AUTO DIFFERENTIAL Routine 10/30/2024 8:20 AM EDT CML (chronic myelocytic leukemia) (CMS/HCC) LIPASE, PLASMA Routine 10/30/2024 8:20 AM EDT CML (chronic myelocytic leukemia) (CMS/HCC) LACTATE DEHYDROGENASE, PLASMA Routine 10/30/2024 8:20 AM EDT CML (chronic myelocytic leukemia) (CMS/HCC) AMYLASE, PLASMA Routine 10/30/2024 8:20 AM EDT CML (chronic myelocytic leukemia) (CMS/HCC) COMPREHENSIVE METABOLIC PANEL, PLASMA Routine 10/30/2024 8:20 AM EDT CML (chronic myelocytic leukemia) (CMS/HCC) documented in this encounter Results * (ABNORMAL) Quant Detection of BCR-ABL1 Major (p210) (SO) (11/13/2024 11:04 AM EDT) Quant BCR-ABL1, Major (p210), Source Whole Blood 11/18/2024 12:28 PM EDT [facility] ([employer]) Quant BCR-ABL1, Major (p210), Result Detected(A ) 11/18/2024 12:28 PM EDT [facility] ([employer]) Quant BCR-ABL1, Major (p210), IS Percent 24.3911 % 11/18/2024 12:28 PM EDT [facility] ([employer]) Quant BCR-ABL1, Major (p210), EER See Note 11/18/2024 12:28 PM EDT [facility] ([employer]) Blood Venous blood specimen / Unknown Venipuncture / Unknown 11/13/2024 11:04 AM EDT 11/13/2024 11:38 AM EDT Narrative [facility] ([employer]) - 11/18/2024 12:28 PM EDT BCR::ABL1 fusion transcripts (p210 forms) were detected by RT-qPCR. This result has been reviewed and approved by Kamran Lance M.D. INTERPRETIVE INFORMATION: Quantitative Detection of BCR::ABL1, [...] (IS; see Zhu MC, et al. Leukemia. 2009;23:4612-0632). METHODOLOGY: Total RNA was isolated and converted [...] CML patients (Ashlee CHÁVEZ, et al. NEJM. 2003;349:8184-6772). ANALYTICAL SENSITIVITY: Limit of quantification: 0.0032 percent [...] developed and its performance characteristics determined by [facility]. It has not been cleared or approved by the U.S. Food and Drug Administration. This test was performed in a CLIA-certified laboratory and is intended for clinical purposes. Authorized individuals can access the [employer] Enhanced Report with an [employer] Connect account using the following link. Your local lab can assist you in obtaining the patient report if you don't have a Connect account. [email or web address] Performed By: [facility] [address] [place] [address] Toxicologist: Sunil Gomez MD, PhD CLIA Number: [id number] Mk Pastrana MD LAB BLOOD ORDERABLES Final Re sult [employer] ([facility]) [address] [place] [address] * HLA Antibody Testing (LSA) (10/30/2024 8:20 AM EDT) Blood Venous blood specimen / Unknown Venipuncture / Unknown 10/30/2024 8:20 AM EDT 10/30/2024 8:54 AM EDT Mk Pastrana MD LAB BLOOD ORDERABLES Final Re sult Performing Organization Address City/[facility]/ZIP Co de Phone Number [facility] [address] [place] [address], * Amylase (10/30/2024 8:20 AM EDT) Amylase 37 27 - 114 U/L 10/30/2024 9:09 AM EDT [facility] Blood Venous blood specimen / Unknown Venipuncture / Unknown 10/30/2024 8:20 AM EDT 10/30/2024 8:37 AM EDT Radha Morelos APRN LAB BLOOD ORDERABLES Final Re sult Performing Organization Address [facility] Co de Phone Number [facility] [address] [place] [address] * Lipase (10/30/2024 8:20 AM EDT) Lipase, Plasma 21 19 - 63 U/L 10/30/2024 9:09 AM EDT [facility] Blood Venous blood specimen / Unknown Venipuncture / Unknown 10/30/2024 8:20 AM EDT 10/30/2024 8:37 AM EDT [facility] [place] [facility] [employer] LAB BLOOD ORDERABLES Final Re sult Performing Organization Address City/[facility] Co de Phone Number [facility] [address] [place] [address] * Lactate Dehydrogenase, Plasma (10/30/2024 8:20 AM EDT) LDH, Plasma 232 116 - 250 U/L 10/30/2024 9:09 AM EDT [facility] Comment:Hemolyzed, result ma y be falsely increased. Blood Venous blood specimen / Unknown Venipuncture / Unknown 10/30/2024 8:20 AM EDT 10/30/2024 8:37 AM EDT Radha Morelos APRN LAB BLOOD ORDERABLES Final Re sult [facility] [address] [place] [address] * (ABNORMAL) Comprehensive Metabolic Panel, Plasma (10/30/2024 8:20 AM EDT) Glucose, Plasma 86 74 - 99 mg/dL 10/30/2024 9:09 AM EDT [facility] BUN, Plasma 10 7 - 21 mg/dL 10/30/2024 9:09 AM EDT [facility] Creatinine, Plasma 0.81 0.60 - 1.10 mg/dL 10/30/2024 9:09 AM EDT [facility] BUN/Creatinine Ratio 12 10/30/2024 9:09 AM EDT [facility] Sodium, Plasma 141 136 - 145 mmol/L 10/30/2024 9:09 AM EDT [facility] Potassium, Plasma 4.9 3.6 - 4.9 mmol/L 10/30/2024 9:09 AM EDT [facility] Chloride, Plasma 106 97 - 107 mmol/L 10/30/2024 9:09 AM EDT [facility] CO2, Plasma 24 22 - 29 mmol/L 10/30/2024 9:09 AM EDT [facility] Anion Gap 11 6 - 16 mmol/L 10/30/2024 9:09 AM EDT [facility] Total Calcium, Plasma 9.4 8.9 - 10.2 mg/dL 10/30/2024 9:09 AM EDT [facility] Total Protein 7.3 6.3 - 7.9 g/dL 10/30/2024 9:09 AM EDT [facility] Albumin, Plasma 4.5 3.5 - 5.2 g/dL 10/30/2024 9:09 AM EDT [facility] AST, Plasma 21 10 - 35 U/L 10/30/2024 9:09 AM EDT [facility] ALT, Plasma 21 10 - 35 U/L 10/30/2024 9:09 AM EDT [facility] Alkaline Phosphatase, Plasma 127(H) 35 - 104 U/L 10/30/2024 9:09 AM EDT [facility] Total Bilirubin, Plasma 0.7 0.2 - 1.1 mg/dL 10/30/2024 9:09 AM EDT [facility] eGFRcr 87.5 mL/min/1.7 3m*2 10/30/2024 9:09 AM EDT [facility] Comment:Reported eGFRcr in m L/min/1.73m2 is based the CKD-EPI 2020 equation that does not use a race coefficient. Blood Venous blood specimen / Unknown Venipuncture / Unknown 10/30/2024 8:20 AM EDT 10/30/2024 8:37 AM EDT Radha Morelos APRN LAB BLOOD ORDERABLES Final Re sult [facility] [address] [place] [address] * (ABNORMAL) CBC and Differential (10/30/2024 8:20 AM EDT) WBC Count 3.45(L) 3.70 - 10.30 10*3/uL LAB HEMATOLOGY METHOD 10/30/2024 8:30 AM EDT [facility] RBC Count 4.11 3.90 - 5.20 10*6/uL LAB HEMATOLOGY METHOD 10/30/2024 8:30 AM EDT [facility] HGB 13.0 11.2 - 15.7 g/dL LAB HEMATOLOGY METHOD 10/30/2024 8:30 AM EDT [facility] HCT 39.2 34.0 - 45.0 % LAB HEMATOLOGY METHOD 10/30/2024 8:30 AM EDT [facility] Platelet Count 135(L) 155 - 369 10*3/uL LAB HEMATOLOGY METHOD 10/30/2024 8:30 AM EDT [facility] MCV 95 79 - 98 fL LAB HEMATOLOGY METHOD 10/30/2024 8:30 AM EDT [facility] MCH 31.6 26.0 - 32.0 pg LAB HEMATOLOGY METHOD 10/30/2024 8:30 AM EDT [facility] MCHC 33.2 30.7 - 35.5 g/dL LAB HEMATOLOGY METHOD 10/30/2024 8:30 AM EDT [facility] RDW 15.5(H) 11.5 - 14.5 % LAB HEMATOLOGY METHOD 10/30/2024 8:30 AM EDT [facility] MPV 10.6 8.8 - 12.5 fL LAB HEMATOLOGY METHOD 10/30/2024 8:30 AM EDT [facility] nRBC 0.0 <=0.0 per 100 WBCs LAB HEMATOLOGY METHOD 10/30/2024 8:30 AM EDT [facility] Differential Type Automated LAB HEMATOLOGY METHOD 10/30/2024 8:30 AM EDT [facility] Neutrophils % 60 % LAB HEMATOLOGY METHOD 10/30/2024 8:30 AM EDT [facility] Lymphocytes % 30 % LAB HEMATOLOGY METHOD 10/30/2024 8:30 AM EDT [facility] Monocytes % 8 % LAB HEMATOLOGY METHOD 10/30/2024 8:30 AM EDT [facility] Eosinophils % 1 % LAB HEMATOLOGY METHOD 10/30/2024 8:30 AM EDT [facility] Basophils % 1 % LAB HEMATOLOGY METHOD 10/30/2024 8:30 AM EDT [facility] Immature Granulocytes % 0 % LAB HEMATOLOGY METHOD 10/30/2024 8:30 AM EDT [facility] Neutrophils Absolute 2.05 1.60 - 6.10 10*3/uL LAB HEMATOLOGY METHOD 10/30/2024 8:30 AM EDT [facility] Lymphocytes Absolute 1.04(L) 1.20 - 3.90 10*3/uL LAB HEMATOLOGY METHOD 10/30/2024 8:30 AM EDT [facility] Monocytes Absolute 0.29(L) 0.30 - 0.90 10*3/uL LAB HEMATOLOGY METHOD 10/30/2024 8:30 AM EDT [facility] Eosinophils Absolute 0.04 0.00 - 0.50 10*3/uL LAB HEMATOLOGY METHOD 10/30/2024 8:30 AM EDT [facility] Basophils Absolute 0.02 0.00 - 0.10 10*3/uL LAB HEMATOLOGY METHOD 10/30/2024 8:30 AM EDT [facility] Immature Granulocytes Absolute 0.01 0.00 - 0.06 10*3/uL LAB HEMATOLOGY METHOD 10/30/2024 8:30 AM EDT [facility] Blood Venous blood specimen / Unknown Venipuncture / Unknown 10/30/2024 8:20 AM EDT 10/30/2024 8:28 AM EDT Narrative [facility] - 10/30/2024 8:30 AM EDT Therapeutic decision making should be based on absolute values, rather than percentages. Radha Morelos APRN LAB BLOOD ORDERABLES Final Re sult [facility] [address] [place] [address] documented in this encounter Visit Diagnoses Diagnosis [...] documented as of this encounter Care Teams Cinder Pitman Relationship Specialty Start Date End Date Willi Frost MD [address] [place] [address] PCP - General 06/11/24 documented as of this encounter
--- OUTSIDE RECORDS SUMMARY | 2024-11-13 11:00 | XMS_ITS | Encounter Summary ---
Author Organization [facility] Address [address] [place] [address] Care Team Providers Care Bicycle Assembler Name Role Phone Willi Frost MD Primary Care Provider + [phone] Reason for Visit * Reason Comments Labs * Genetic Testing (Urgent) - Closed Specialty Diagnoses / Procedures Referred By Contac t Referred To Contact Lab Diagnoses CML (chronic myelocytic leukemia) (CMS/HCC) Procedures Quant Detection of BCR-ABL1 Major (p210) (SO) Mk Pastrana MD 800 [facility] [address] [address] Phone: tel: fax: Referral ID Status Reason Start Date Expiration Date Visits Re quested Visits Authorized [id number] Closed 10/30/2024 05/01/2026 1 1 Encounter Details Date Type Department Care Team (Latest Contact Info) Description 11/13/2024 11:00 AM EDT Clinical Support [facility] Hematology/BMT and Cellular Therapy Program [address] [place] [phone] CML (chronic myelocytic leukemia) (CMS/HCC) Social History Tobacco Use Types Packs/Day Years Used Date Smoking Tobacco: Former Cigarettes Smokeless Tobacco: Never PHQ-2 Answer Date Recorded Patient Health Questionnaire-2 Score 0 11/13/2024 PHQ-9 Answer Date Recorded Patient Health Questionnaire-9 Score 0 11/13/2024 Comments No Sex and Gender Information Value Date Recorded Sex Assigned at Female 06/07/2024 5:58 PM EST Legal Sex Female 12:57 PM EST Gender Identity Female 06/07/2024 5:58 PM EST Sexual Orientation Not on file documented as of this encounter Plan of Treatment Upcoming Encounters Date Type Department Care Team ([facility] st Contact Info) Description 11/27/2024 11:00 AM EDT Clinical Support [facility] Hematology/BMT and Cellular Therapy Program 750 [facility], [facility] [place] [address] 11/27/2024 11:30 AM EDT Office Visit [facility] Hematology/BMT and Cellular Therapy Program 750 [facility], [address] [place] [phone] Catrachita Dior PA 800 [facility] [address] [place] [phone] 11/27/2024 1:30 PM EDT Clinical Support [address] [address] 12/04/2024 9:15 AM EDT Office Visit [facility] Adult Dentistry [address] [place], [place] [phone] Trinidad Emery, STEPHANIE 800 [place] [address] 02/13/2025 3:00 PM EST Office Visit [address] [phone] Verena Montes PA [address] [place] [address] [address] [place] [address] documented as of this encounter Procedures Procedure Name Priority Date/Time Associated Diagnosis Comments QUANT DETECTION OF BCR-ABL1 MAJOR (P210) (SO) Routine 11/13/2024 11:04 AM EDT CML (chronic myelocytic leukemia) (CMS/HCC) documented in this encounter Results * (ABNORMAL) Quant Detection of BCR-ABL1 Major (p210) (SO) (11/13/2024 11:04 AM EDT) Quant BCR-ABL1, Major (p210), Source Whole Blood 11/18/2024 12:28 PM EDT [facility] ([place]) Quant BCR-ABL1, Major (p210), Result Detected(A ) 11/18/2024 12:28 PM EDT [facility] ([place]) Quant BCR-ABL1, Major (p210), IS Percent 24.3911 % 11/18/2024 12:28 PM EDT [facility] ([place]) Quant BCR-ABL1, Major (p210), EER See Note 11/18/2024 12:28 PM EDT [facility] ([place]) Blood Venous blood specimen / Unknown Venipuncture / Unknown 11/13/2024 11:04 AM EDT 11/13/2024 11:38 AM EDT [facility] ([place]) - 11/18/2024 12:28 PM EDT BCR::ABL1 fusion [...] (IS; see Zhu MC, et al. Leukemia. 2009;23:4338-4700). METHODOLOGY: Total RNA was isolated and converted [...] CML patients (Ashlee CHÁVEZ, et al. NE. 2003;349:6270-9505). ANALYTICAL SENSITIVITY: Limit of quantification: 0.0032 percent [...] developed and its performance characteristics determined by [facility]. It has not been cleared or approved by the U.S. Food and Drug Administration. This test was performed in a CLIA-certified laboratory and is intended for clinical purposes. Authorized individuals can access the [facility] Enhanced Report with an [facility] Connect account using the following link. Your local lab can assist you in obtaining the patient report if you don't have a Connect account. [email or web address] Performed By: [facility] [address] [place] [address] Customer Engagement Manager: Sunil Gomez MD, PhD CLIA Number: [id number] us Mk Pastrana MD LAB BLOOD ORDERABLES Final Re sult [facility] ([place]) [address] [place] [address] documented in this encounter Visit Diagnoses Diagnosis CML (chronic myelocytic leukemia) (CMS/HCC) Chronic myeloid leukemia, without mention of having achieved remission documented in this encounter Additional Health Concerns Assessment Noted Time PHQ-9 Depression Total Score: 0 11/14/19 25 12:49 PM EDT A fall risk assessment has been complete d for the patient 11/13/2024 12:50 PM EDT A Body Mass Index follow-up plan has been documented for the patient 11/13/2024 2:41 PM EDT documented as of this encounter Care Teams Bicycle Assembler Relationship Specialty Start Date End Date Willi Frost MD [address] [place] [address] PCP - General 06/11/24 documented as of this encounter
--- OUTSIDE RECORDS SUMMARY | 2024-11-13 13:00 | XMS_ITS | Encounter Summary ---
Author Organization [facility] Address [address] [place] [address] Care Team Providers Care Lubrication Equipment Servicer Name Role Phone Willi Frost MD Primary Care Provider [phone] Reason for Referral * Consultation (Routine) - Authorized Specialty Diagnoses / Procedures Referred By Akosua linda Referred To Contact Diagnoses Late latent syphilis Verena Montes PA [address] [facility] 100 [place] [address] Phone: tel: fax: Referral ID Status Reason Start Date Expiration Date V isits Requested Visits Authorized [id number] Authorized 11/13/2024 05/15/2026 1 1 Reason for Visit * Consultation (Urgent) - Closed Specialty Diagnoses / Procedures Referred By Akosua linda Referred To Contact Infectious Diseases Diagnoses Acquired syphilis Mk Pastrana MD 800 [facility] [address] [address] Phone: tel: fax: Referral ID Status Reason Start Date Expiration Date V isits Requested Visits Authorized [id number] Closed Specialty Services Required 10/08/2024 04/09/2026 1 1 Encounter Details Date Type Department Care Team (Late st Contact Info) Description 11/13/2024 1:00 PM EDT Office Visit [facility] [address] [place] [address] Verena Montes PA 3101 [facility] [address] [place] [address] Late latent syphilis (Primary Dx) Social History Tobacco Use Types [...] Sign Reading Time Taken Comments Blood Pressure 151/85 11/13/2024 1:41 PM EDT Pulse 65 11/13/2024 12:49 PM EDT Temperature 36.4 C (97.6 F) 11/13/2024 12:49 PM EDT Respiratory Rate - - Oxygen Saturation 100% 11/13/2024 12:49 PM EDT Inhaled Oxygen Concentration - - Weight 59 kg (130 lb 1.1 oz) 11/13/2024 12:49 PM EDT Height 167.6 cm (5' 6 ) 11/13/2024 12:49 PM EDT Body Mass Index 20.99 11/13/2024 12:49 PM EDT documented in this encounter Functional Status * Over the past 2 weeks, how often have you been bothered by any of the following problems? Question Answer Date of Assessment Author Little interest or pleasure in doing things Not at all 11/13/2024 12:49 PM EDT Luis Smith Feeling down, depressed, or hopeless Not at all 11/13/2024 12:49 PM EDT Luis Smith Patient Health Questionnaire -2 Score 0 11/13/2024 12:49 PM EDT Luis Smith * Question Answer Date of Assessment Author Trouble falling or staying asleep, or sleeping too much Not at all 11/13/2024 12:49 PM EDT Luis Smith Feeling tired or having agnes le energy Not at all 11/13/2024 12:49 PM EDT Luis Smith Poor appetite or overeating Not at all 11/13/2024 12 :49 PM EDT Luis Smith Feeling bad about yourself - or that you are a failure or have let yourself or your family down Not at all 11/13/2024 12:49 PM EDT Luis Bo Trouble concentrating on thi ngs, such as reading the newspaper or watching television Not at all 11/13/2024 12:49 PM EDT Luis Smith Moving or speaking so slowly that other people could have noticed? Or the opposite - being so fidgety or restless that you have been moving around a lot more than usual. Not at all 11/13/2024 12:49 PM EDT Luis Smith Thoughts that you would be better off or hurting yourself in some way Not at all 11/13/2024 12:49 PM EDLuis Medeiros Patient Health Questionnaire -9 Score 0 11/13/2024 12:49 PM Luis Stewart * If you checked off any problems on this questionnaire so far, Question Answer Date of Assessment Author How difficult have these problems made it for you to do your work, take care of things at home, or get along with other people? Not difficult at all 11/13/2024 12:49 PM Luis Stewart documented as of this encounter Miscellaneous Notes * Clinician Note - Teri Joy - 11/13/2024 1:00 PM EDT Administrations This Visit penicillin G benzathine (Bicillin-LA) injection 2.4 Million Units Admin Date 11/13/2024 Action Given Dose 2.4 Million Units Route Intramuscular Documented By Teri Joy Patient identification confirmed per [facility] Policy. Medication administered per provider order, medication administration details documented on JUN. Patient tolerated medication administrationwell, voiced no complaints or concerns. Patient discharged from clinic, instructed to call with anyquestions or concerns, patient voiced understanding. * Progress Notes - Verena Montes PA - 11/13/2024 1:00 PM EDT Infectious Disease Consult We were asked to evaluate Ms. Amita Ortiz, a 54 y.o. yo female by Dr. Mk Pastrana for Syphilis. Our findings and recommendations will be communicated through the shared medical record. HPI Amita Ortiz is a 54-year-old female with CML currently on chemotherapy and awaiting allogenic stem cell transplant who was found to be positive for syphilis during pre-transplant work-up. She had a RPR of 1:1 on 10/08/2024 with a positive treponemal antibody. She was referred to ID for further evaluation. She reports that she was diagnosed with syphilis while in 1986 in [place]. She reported vaginal ulcers and pain with urination. She reports she was treated with 4 weekly injection in her spine. She denies any further issues or other STIs. She denies being sexually active in the past 2 years. She denies nausea, vomiting, rash, or bruising. She is fatigued. She had teeth pulled 2 months ago and was treated with prophylactic antibiotics. Current Medications[1] Past Medical History[2] Surgical History[3] Social History Socioeconomic History Marital status: Spouse name: Not on file Number of children: Not on file Years of education: Not on file Highest education level: Not on file Occupational History Not on file Tobacco Use Smoking status: Former Types: Cigarettes Smokeless tobacco: Never Vaping Use Vaping status: Every Day Substances: THC Substance and Sexual Activity Alcohol use: Not on file Drug use: Not on file Sexual activity: Not on file Other Topics Concern Not on file Social History Narrative Not on file Social Drivers of Health Financial Resource Strain: Not on file Food Insecurity: Not on file Transportation Needs: Not on file Physical Activity: Not on file Stress: Not on file Social Connections: Not on file Intimate Partner Violence: Not on file Housing Stability: Not on file Family History[4] There is no immunization history on file for this patient. Allergies[5] REVIEW OF SYSTEMS: Review of Systems Constitutional: Positive for fatigue. Negative for chills and fever. HENT: Negative for congestion, dental problem, rhinorrhea and sore throat. Eyes: Negative for visual disturbance. Respiratory: Negative for cough and shortness of breath. Cardiovascular: Negative for chest pain. Gastrointestinal: Negative for diarrhea, nausea and vomiting. Genitourinary: Negative for dysuria, vaginal discharge and vaginal pain. Musculoskeletal: Negative for arthralgias and myalgias. Skin: Negative for rash. Neurological: Negative for dizziness and light-headedness. Hematological: Does not bruise/bleed easily. Psychiatric/Behavioral: Negative for suicidal ideas. Physical Exam Vitals reviewed. Constitutional: General: She is not in acute distress. Appearance: Normal appearance. Comments: Thin HENT: Head: Normocephalic and atraumatic. Nose: Nose normal. No congestion. Mouth/Throat: Mouth: Mucous membranes are moist. Pharynx: Oropharynx is clear. Comments: Edentulous Eyes: Conjunctiva/sclera: Conjunctivae normal. Cardiovascular: Rate and Rhythm: Normal rate and regular rhythm. Heart sounds: Normal heart sounds. No murmur heard. Pulmonary: Effort: Pulmonary effort is normal. No respiratory distress. Breath sounds: Normal breath sounds. Abdominal: Palpations: Abdomen is soft. Tenderness: There is no abdominal tenderness. Musculoskeletal: General: No swelling or tenderness. Normal range of motion. Cervical back: Normal range of motion. Skin: General: Skin is warm and dry. Neurological: General: No focal deficit present. Mental Status: She is alert and oriented to person, place, and time. Psychiatric: Mood and Affect: Mood normal. Behavior: Behavior normal. LABS: No visits with results within 2 Week(s) from this visit. Latest known visit with results is: Office Visit on 10/30/2024 Component Date Value Ref Range Status WBC Count 10/30/2024 3.45 (L) 3.70 - 10.30 10*3/uL Final RBC Count 10/30/2024 4.11 3.90 - 5.20 10*6/uL Final HGB 10/30/2024 13.0 11.2 - 15.7 g/dL Final HCT 10/30/2024 39.2 34.0 - 45.0 % Final Platelet Count 10/30/2024 135 (L) 155 - 369 10*3/uL Final MCV 10/30/2024 95 79 - 98 fL Final MCH 10/30/2024 31.6 26.0 - 32.0 pg Final MCHC 10/30/2024 33.2 30.7 - 35.5 g/dL Final RDW 10/30/2024 15.5 (H) 11.5 - 14.5 % Final MPV 10/30/2024 10.6 8.8 - 12.5 fL Final nRBC 10/30/2024 0.0 <=0.0 per 100 WBCs Final Differential Type 10/30/2024 Automated Final Neutrophils % 10/30/2024 60 % Final Lymphocytes % 10/30/2024 30 % Final Monocytes % 10/30/2024 8 % Final Eosinophils % 10/30/2024 1 % Final Basophils % 10/30/2024 1 % Final Immature Granulocytes % 10/30/2024 0 % Final Neutrophils Absolute 10/30/2024 2.05 1.60 - 6.10 10*3/uL Final Lymphocytes Absolute 10/30/2024 1.04 (L) 1.20 - 3.90 10*3/uL Final Monocytes Absolute 10/30/2024 0.29 (L) 0.30 - 0.90 10*3/uL Final Eosinophils Absolute 10/30/2024 0.04 0.00 - 0.50 10*3/uL Final Basophils Absolute 10/30/2024 0.02 0.00 - 0.10 10*3/uL Final Immature Granulocytes Absolute 10/30/2024 0.01 0.00 - 0.06 10*3/uL Final Glucose, Plasma 10/30/2024 86 74 - 99 mg/dL Final BUN, Plasma 10/30/2024 10 7 - 21 mg/dL Final Creatinine, Plasma 10/30/2024 0.81 0.60 - 1.10 mg/dL Final BUN/Creatinine Ratio 10/30/2024 12 Final Sodium, Plasma 10/30/2024 141 136 - 145 mmol/L Final Potassium, Plasma 10/30/2024 4.9 3.6 - 4.9 mmol/L Final Chloride, Plasma 10/30/2024 106 97 - 107 mmol/L Final CO2, Plasma 10/30/2024 24 22 - 29 mmol/L Final Anion Gap 10/30/2024 11 6 - 16 mmol/L Final Total Calcium, Plasma 10/30/2024 9.4 8.9 - 10.2 mg/dL Final Total Protein 10/30/2024 7.3 6.3 - 7.9 g/dL Final Albumin, Plasma 10/30/2024 4.5 3.5 - 5.2 g/dL Final AST, Plasma 10/30/2024 21 10 - 35 U/L Final ALT, Plasma 10/30/2024 21 10 - 35 U/L Final Alkaline Phosphatase, Plasma 10/30/2024 127 (H) 35 - 104 U/L Final Total Bilirubin, Plasma 10/30/2024 0.7 0.2 - 1.1 mg/dL Final eGFRcr 10/30/2024 87.5 mL/min/1.73m*2 Final Reported eGFRcr in mL/min/1.73m2 is based the CKD-EPI 2020 equation that does not use a race coefficient. LDH, Plasma 10/30/2024 232 116 - 250 U/L Final Hemolyzed, result may be falsely increased. Lipase, Plasma 10/30/2024 21 19 - 63 U/L Final Amylase 10/30/2024 37 27 - 114 U/L Final Micro: 10/08/2024 RPR: 1:1 10/08/2024 Treponemal Ab: Positive Imaging: None pertinent ASSESSMENT: Problem List Items Addressed This Visit None Visit Diagnoses Late latent syphilis - Primary Relevant Medications penicillin G benzathine (Bicillin-LA) injection 2.4 Million Units (Start on 11/13/2024 2:15 PM) Amita Ortiz is a 54-year-old female with CML currently on chemotherapy and awaiting allogenic stem cell transplant who was found to be positive for syphilis during pre-transplant work-up. She had a RPR of 1:1 on 10/08/2024 with a positive treponemal antibody. She was referred to ID for further evaluation. Although she reports a history of syphilis with reported treatment, there are no records to confirm. Furthermore, there are no prior RPR values to indicate adequate treatment response and there is noway of knowing if patient has had a reinfection. I called the [facility] Department and theywere unable to locate prior records of syphilis testing and/or treatment. Therefore, I recommend treating for late latent syphilis with 3 weekly IM PCN G injections as patient has no active symptoms and a positive RPR with a positive treponemal antibody test. She received her first IM PCN G injection today and will have her second dose next week. I will repeat a RPR in 3 months. There are no contraindications from an infectious standpoint for allogenic stem cell transplant andsyphilis treatment should not delay therapy. I discussed patient case with Dr. Bellamy with transplant ID and he is in agreement with the plan. RECOMMENDATIONS: - Treat for late latent syphilis with 2.4 mil units PCN G IM q 7 days for 3 doses - Repeat RPR in 3 months - No contraindications for allogenic stem cell transplant from an ID perspective Time Spent: I personally spent a total of 60 minutes on this encounter. This time includes face to face with patient, counseling and discussion and/or coordination of care. SALVADOR Calixto [1] Current Outpatient Medications: PONATinib (Iclusig) 45 MG chemo tablet, Take 1 tablet (45 mg total) by mouth daily. Take with or without food. Swallowed whole., Disp: 30 tablet, Rfl: 1 cetirizine (ZyrTEC) 10 MG tablet, Take 1 tablet by mouth daily. (Patient not taking: Reported on 11/13/2024), Disp: 7 tablet, Rfl: 0 Current Facility-Administered Medications: penicillin G benzathine (Bicillin-LA) injection 2.4 Million Units, 2.4 Million Units, Intramuscular, q7 days, Verena Montes PA, 2.4 Million Units at 11/13/24 1343 [2] Past Medical History: Diagnosis Date Leukemia (CMS/HCC) 06/24/23 [3] Past Surgical History: Procedure Laterality Date PROSTHODONTIC PROCEDURE 2020 [4] Family History Problem Relation Name Age of Onset Cancer Mother Yulissa Haddad 50 - 59 [5] No Known Allergies documented in this encounter Plan of Treatment Upcoming Encounters Date Type Department Care Team ([facility] Contact Info) Description 11/27/2024 11:00 AM EDT Clinical Support [facility] Hematology/BMT and Cellular Therapy Program [address] [place] [address] [place] [address] 11/27/2024 11:30 AM EDT Office Visit [facility]ematology/BMT and Cellular Therapy Program [address] [place] [address] [place] [address] Catrachita Dior PA 800 [facility] 1st [place] [address] 11/27/2024 1:30 PM EDT Clinical Support [address] [phone] 12/04/2024 9:15 AM EDT Office Visit [facility] [address] [place] [address] Trinidad Emery, STEPHANIE [address] [place], [place] [phone] 02/13/2025 3:00 PM EST Office Visit [address] [phone] Verena Montes PA [address] [facility] [address] [place] [phone] Scheduled Referrals Name Type Priority Associated Diagnoses Orde r Schedule Follow Up ID Outpatient Referral Routine Late latent syphilis Expected: 02/13/2025, Expires: 12/14/2025 documented as of this encounter Visit Diagnoses Diagnosis Late latent syphilis- Primary documented in this encounter Administered Medications Active Administered Medications - up to 3 most recent administrations Medication Order MAR Action Action Date Dose Rate Site penicillin G benzathine (Bicillin-LA) injection 2.4 Million Units 2.4 Million Units, Intramuscular, Every 7 days, 3 doses, First dose on Mon11/13/24 at 1415, Last dose on Mon11/27/24 at 1415, RoutineIndications: Late latent syphilis Given 11/20/2024 10:05 AM EDT 2.4 Million Units Right Ventrogluteal Given 11/13/2024 1:43 PM EDT 2.4 Million Units Right Ventrogluteal documented in this encounter Additional Health Concerns Assessment Noted Time PHQ-9 Depression Total Score: 0 11/14/19 12:49 PM EDT A fall risk assessment has been complete d for the patient 11/13/2024 12:50 PM EDT A Body Mass Index follow-up plan has been documented for the patient 11/13/2024 2:41 PM EDT documented as of this encounter Care Teams Lubrication Equipment Servicer Relationship Specialty Start Date End Date Willi Frost MD 105 [facility] [address] [place] [address] PCP - General 06/11/24 documented as of this encounter
--- OUTSIDE RECORDS SUMMARY | 2024-11-20 10:00 | XMS_ITS | Encounter Summary ---
Author Organization [facility] Address [address] [place] [address] Care Team Providers Care A And P Mechanic Name Role Phone Willi Frost MD Primary Care Provider Encounter Details Date Type Department Care Team (Late st Contact Info) Description 11/20/2024 10:00 AM EDT Clinical Support [facility] [address] [place] [address] Susanne Escobar, RN GS - Wound Care Social History Tobacco Use Types Packs/Day [...] encounter Miscellaneous Notes * Progress Notes - Susanne Escobar RN - 11/20/2024 10:00 AM EDT Patient identification confirmed per HealthCare Policy. Medication administered per provider order, medication administration details documented on JUN. Patient tolerated medication administrationwell, voiced no complaints or concerns. Patient discharged from clinic, instructed to call with anyquestions or concerns, patient voiced understanding. Administrations This Visit penicillin G benzathine (Bicillin-LA) injection 2.4 Million Units Admin Date 11/20/2024 Action Given Dose 2.4 Million Units Route Intramuscular Documented By Susanne Escobar, RN documented in this encounter Plan of Treatment Upcoming Encounters Date Type Department Care Team (Late st Contact Info) Description 11/27/2024 11:00 AM EDT Clinical Support [facility] Hematology/BMT and Cellular Therapy Program [address] [phone] 11/27/2024 11:30 AM EDT Office Visit [facility] Hematology/BMT and Cellular Therapy Program [address] [place] [phone] Catrachita Dior PA 800 [facility] [address] [place] [phone] 11/27/2024 1:30 PM EDT Clinical Support [address] [phone] 12/04/2024 9:15 AM EDT Office Visit [facility] Adult Dentistry [address] [place] [address] Trinidad Emery, STEPHANIE 800 [place] [address] 02/13/2025 3:00 PM EST Office Visit [address] [phone] Verena Montes PA [address] [place] [address] 100 [place] [address] documented as of this encounter Visit Diagnoses Not on filedocumented in this encounter Administered Medications Active Administered [...] plan has been documented for the patient 11/20/2024 10:07 AM EDT documented as of this encounter Care Teams A And P Mechanic Relationship Specialty Start Date End Date Willi Frost MD [address] [place] [address] PCP - General 06/11/24 documented as of this encounter
--- OUTSIDE RECORDS SUMMARY | 2024-11-20 14:50 | XMS_ITS | Encounter Summary ---
Author Organization [facility] Address [address] [place] [address] Care Team Providers Care Director Of Health Education Name Role Phone Willi Frost MD Primary Care Provider [phone] Encounter Details Date Type Department Care Team (Late st Contact Info) Description 10/28/2024 Orders Only [facility] Hematology/BMT and Cellular Therapy Program [address] [place] [address] [place] [address] Virgilio King, RN [facility] CML (chronic myelocytic leukemia) (CMS/HCC) (Primary Dx) Social History Tobacco Use Types Packs/Day Years Used Date Smoking Tobacco: Former Cigarettes Smokeless Tobacco: Never PHQ-2 Answer Date Recorded Patient Health Questionnaire-2 Score 0 10/30/2024 Comments Unknown Sex and Gender Information Value Date Recorded Sex Assigned at Female 06/07/2024 5:58 PM EST Legal Sex Female 12:57 PM EST Gender Identity Female 06/07/2024 5:58 PM EST Sexual Orientation Not on file documented as of this encounter Functional Status * Over the past 2 weeks, how often have you been bothered by any of the following problems? Question Answer Date of Assessment Author Little interest or pleasure in doing things Not at all 10/30/2024 8:42 AM Tracee Nova Feeling down, depressed, or hopeless Not at all 10/09 8:42 AM Tracee Nova Patient Health Questionnaire-2 Score 0 10/09 8:42 AM Tracee Nova * Calculated C-SSRS Risk Score (Lifetime/Recent) Answer Date of Assessment Author No Risk Indicated 10/30/2024 8:42 AM EDT Tracee Jonas * Question Answer Date of Assessment Author 1. Wish to be (Past 1 Month) No 025 8:42 AM EDT Tracee Jonas 2. Non-Specific Active Suici yonatan Thoughts (Past 1 Month) No 10/30/2024 8:42 AM EDT Tracee Jonas 6. Suicidal Behavior (Lifetime) No 8:42 AM EDT Tracee Jonas documented as of this encounter Plan of Treatment Upcoming Encounters Date Type Department Care Team ([facility] Contact Info) Description 11/27/2024 11:00 AM EDT Clinical Support [facility] Hematology/BMT and Cellular Therapy Program [address] [place] [phone] 11/27/2024 11:30 AM EDT Office Visit [facility] Hematology/BMT and Cellular Therapy Program [address] [place] [phone] Catrachita Dior, PA 800 [facility] Cancer [address] [address] 11/27/2024 1:30 PM EDT Clinical Support [address] [phone] 12/04/2024 9:15 AM EDT Office Visit [place] [facility] [address] [place] [address] Trinidad Emery, DMD 800 [place], [place] [phone] 02/13/2025 3:00 PM EST Office Visit [address] [address] [place] [address] [place] [phone] documented as of this encounter Results * HLA Antibody Testing (LSA) (10/30/2024 8:20 AM EDT) Blood Venous blood specimen / Unknown Venipuncture / Unknown 10/30/2024 8:20 AM EDT 10/30/2024 8:54 AM EDT us Mk Pastrana MD LAB BLOOD ORDERABLES Final Re sult [facility] [address] documented in this encounter Visit Diagnoses Diagnosis CML (chronic myelocytic leukemia) (CMS/HCC)- Primary Chronic myeloid leukemia, without mention of having achieved remission documented in this encounter Additional Health Concerns Assessment Noted Time A Body Mass Index follow-up plan has been documented for the patient 09/11/2024 6:12 PM EDT documented as of this encounter Care Teams Director Of Health Education Relationship Specialty Start Date End Date Willi Frost MD 105 [facility] 1100 [place] [address] PCP - General 06/11/24 documented as of this encounter
--- OUTSIDE RECORDS SUMMARY | 2024-11-20 14:50 | XMS_ITS | Encounter Summary ---
Author Organization [facility] Address [address] [place] [address] Care Team Providers Care Programmer Engineering And Scientific Name Role Phone Willi Frost MD Primary Care Provider [phone] Encounter Details Date Type Department Care Team (Late Contact Info) Description 11/14/2024 Lab Requisition [facility] 800 [place] [address] Mk Pastrana MD 800 [facility]tr [address] [place] [address] Chronic myeloid leukemia, BCR/ABL-positive, 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) Social History Tobacco Use Types Packs/Day Years Used Date Smoking Tobacco: Former Cigarettes Smokeless Tobacco: Never PHQ-2 Answer Date Recorded Patient Health Questionnaire-2 Score 0 11/13/2024 PHQ-9 Answer Date Recorded Patient Health Questionnaire-9 Score 0 11/13/2024 Comments Unknown Sex and Gender Information Value [...] and Cellular Therapy Program 750 [facility] [place] [phone] 11/27/2024 11:30 AM EDT Office Visit [facility] Hematology/BMT and Cellular Therapy Program 750 [facility], [address] [place] [address] Catrachita Dior PA 800 [facility] [address] [place] [address] 11/27/2024 1:30 PM EDT Clinical Support [facility] 3101 [place] [phone] 12/04/2024 9:15 AM EDT Office Visit [facility] [address] 2nd [address] [place], [place] [phone] Trinidad Emery DMD 800 [place] [address] 02/13/2025 3:00 PM EST Office Visit [address] [phone] [place] [address] [place] [address] [address] [place] [address] documented as of this encounter Procedures Procedure Name Priority Date/Time Associated Diagnosis Comments [facility] SE[facility] AND CELL ACQUISITION Routine 10/25/2024 9:00 AM EDT Chronic myeloid leukemia, BCR/ABL-positive, 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) documented in this encounter Results * [facility] Donor Search and Cell Acquisition (10/25/2024 9:00 AM EDT) Service [facility] Management of Unrelated Donor Search 11/14/2024 6:54 PM EDT [facility] Service Date: 10/25/2024 11/14/2024 6:54 PM EDT [facility] Invoice No.: [id number] 11/14/2024 6:54 PM EDT [facility] Grid Number [id number] 11/14/2024 6:54 PM EDT [facility] NMDP (NMDP Donor Search ) 10/25/2024 9:00 AM EDT 11/14/2024 5:45 PM EDT us Mk Pastrana MD LAB BLOOD ORDERABLES Final Re sult [facility] 800 [place] [address] documented in this encounter Visit Diagnoses Diagnosis Chronic myeloid leukemia, BCR/ABL-positive, 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) documented in this encounter Additional Health Concerns Assessment Noted Time A Body Mass Index follow-up plan has been documented for the patient 09/11/2024 6:12 PM EDT documented as of this encounter Care Teams Programmer Engineering And Scientific Relationship Specialty Start Date End Date Willi Frost MD [address] [facility] 1100 [place] [address] PCP - General 06/11/24 documented as of this encounter
--- OUTSIDE RECORDS SUMMARY | 2024-11-20 14:51 | XMS_ITS | Encounter Summary ---
Author Organization [facility] Address [address] [place] [address] Care Team Providers Care Mergers And Acquisitions Banker Name Role Phone Willi Frost MD Primary Care Provider Encounter Details Date Type Department Care Team ([facility] Contact Info) Description 10/07/2024 Orders Only [facility] Hematology/BMT and Cellular Therapy Program [address] [place] [phone] Virgilio King, RN [facility] CML (chronic myelocytic [...] Hematology/BMT and Cellular Therapy Program [address] [place] [phone] 11/27/2024 11:30 AM EDT Office Visit [facility] Hematology/BMT and Cellular Therapy Program [address] [phone] Catrachita Dior PA 800 [facility]tr 1st [place] [address] 11/27/2024 1:30 PM EDT Clinical Support [facility] 3101 [place] [phone] 12/04/2024 9:15 AM EDT Office Visit [place] [facility] [address] [place], [place] [phone] Kimberly Emerya, DMD 800 [place], [place] [phone] 02/13/2025 3:00 PM EST [facility] [address] [place] [phone] [place] [address] [place] [address] Cir [address] [place] [phone] documented as of this encounter Results * (ABNORMAL) Treponema Pallidum (Syphilis) Antibodies with Reflex to RPR and RPR Titer (Those with NOknown Syphilis) (10/08/2024 9:39 AM EDT) Syphilis Antibody (IgG+IgM) Reactive( A) Nonreactive 10/08/2024 12:31 PM EDT [facility] Comment:Result suggests infe ction [...] MD LAB BLOOD ORDERABLES Final Re sult [facility] 800 [place] [address] documented in this encounter Visit Diagnoses Diagnosis CML (chronic myelocytic leukemia) (CMS/HCC)- Primary Chronic myeloid leukemia, without mention of having achieved remission documented in this encounter Additional Health Concerns Assessment Noted Time A Body Mass Index follow-up plan has been documented for the patient 09/11/2024 6:12 PM EDT documented as of this encounter Care Teams Mergers [employer] Acquisitions Banker Relationship Specialty Start Date End Date Willi Frost MD [address] [place] [address] 1100 [place] [address] PCP - General 06/11/24 documented as of this encounter
--- OUTSIDE RECORDS SUMMARY | 2024-11-20 14:51 | XMS_ITS | Encounter Summary ---
Author Organization [facility] Address [address] [place] [address] Care Team Providers Care Microbiological Laboratory Technician Name Role Phone Willi Frost MD Primary Care Provider [phone] Encounter Details Date Type Department Care Team (Late Contact Info) Description 10/18/2024 Lab Requisition [facility] 800 [place] [address] Dary Vincent, PHYSICIAN SCIENTIST 800 [facility] [address] [place] [address] Chronic myeloid leukemia, BCR/ABL-positive, not [...] Hematology/BMT and Cellular Therapy Program [address] [place] [place] [phone] 11/27/2024 11:30 AM EDT Office Visit [facility] Hematology/BMT and Cellular Therapy Program 750 [facility], [address] [place] [address] Catrachita Dior PA 800 [facility] [address] [place] [address] 11/27/2024 1:30 PM EDT Clinical Support [facility] 3101 [place] [address] 12/04/2024 9:15 AM EDT Office Visit [facility] Adult Dentistry [address] [place], [place] [phone] Trinidad Emery DMD 800 [place], [place] [phone] 02/13/2025 3:00 PM EST Office Visit [facility] [address] [place] [phone] Verena Montes PA 3101 [facility] [address] [place] [address] documented as of this encounter Procedures Procedure Name Priority Date/Time Associated Diagnosis Comments BILL ONLY HLA NGS HIGH RESOLUTION TYPING BMT NMDP DONOR Routine 10/16/2024 12:16 PM EDT Chronic myeloid leukemia, BCR/ABL-positive, 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) DONOR HLA TYPING Routine 10/16/2024 12:1 6 PM EDT Chronic myeloid leukemia, BCR/ABL-positive, 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) documented in this encounter Results * BILL ONLY HLA NGS High Resolution Typing NMDP Donor (RESEARCH ONLY) (10/16/2024 12:16 PM EDT) Blood Venous blood specimen / Unknown 10/16/2024 12:16 PM EDT 10/18/2024 3:23 PM EDT us Dary Vincent PHYSICIAN SCIENTIST LAB BLOOD ORDERABLES Final Result [facility] [address] * HLA Typing, Donor (HLATWD) (10/16/2024 12:16 PM EDT) HLA Lab Only (HLA Lab Only) 10/16/2024 12:16 PM EDT 10/18/2024 3:23 PM EDT us Dary Vincent APRN LAB BLOOD ORDERABLES Final Result Performing Organization Address City/State/[facility] Co de Phone Number [facility] [address] documented in this encounter Visit Diagnoses Diagnosis Chronic myeloid leukemia, BCR/ABL-positive, 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) documented in this encounter Additional Health Concerns Assessment Noted Time A Body Mass Index follow-up plan has been documented for the patient 09/11/2024 6:12 PM EDT documented as of this encounter Care Teams Microbiological Laboratory Technician Relationship Specialty Start Date End Date Willi Frost MD [address] [place] [address] 1100 [place] [address] PCP - General 06/11/24 documented as of this encounter
--- OUTSIDE RECORDS SUMMARY | 2024-11-20 14:51 | XMS_ITS | Encounter Summary ---
Author Organization [facility] Address [address] [place] [address] Care Team Providers Care Hemodialysis Technician Name Role Phone Willi Frost MD Primary Care Provider [phone] Encounter Details Date Type Department Care Team (Late Contact Info) Description 10/08/2024 Lab Requisition [facility] Blood Bank 800 [place] [address] Moises Estrada MD 800 [place] [address] General medical exam Social History Tobacco Use [...] Hematology/BMT and Cellular Therapy Program [address] [place] [phone] 11/27/2024 11:30 AM EDT Office Visit [facility] Hematology/BMT and Cellular Therapy Program [address] [place] [address] Catrachita Dior PA 800 [facility] Ctr [address] [place] [address] 11/27/2024 1:30 PM EDT Clinical Support [facility] [address] [place] [phone] 12/04/2024 9:15 AM EDT Office Visit [place] [facility] [address]nd [place] [address] Trinidad Emery, STEPHANIE 800 [place] [address] 02/13/2025 3:00 PM EST Office Visit [address] [phone] Verena Montes PA 3101 [facility] [address] [place] [phone] documented as of this encounter Procedures Procedure [...] ORDERAB LES Final Result BLOOD BANK 800 [place] [address], * Bill Only Isoagglutinin Titer (10/03/2024 11:45 AM EDT) Blood Bank Lab Only (Blood Bank Lab Only) 10/03/2024 11:45 AM EDT 10/08/2024 7:50 AM EDT us Moises Estrada MD LAB BLOOD BANK TEST ORDERAB LES Final Result BLOOD BANK [address] documented in this encounter Visit Diagnoses Diagnosis General medical exam Unspecified general medical examination documented in this encounter Additional Health Concerns Assessment Noted Time A Body Mass Index follow-up plan has been documented for the patient 09/11/2024 6:12 PM EDT documented as of this encounter Care Teams Hemodialysis Technician Relationship Specialty Start Date End Date Willi Frost MD [address] [place] [address] PCP - General 06/11/24 documented as of this encounter
--- OUTSIDE RECORDS SUMMARY | 2024-11-20 14:51 | XMS_ITS | Encounter Summary ---
Author Organization [facility] Address [address] [place] [address] Care Team Providers Care Facilities Operations Technician Name Role Phone Willi Frost MD Primary Care Provider Encounter Details Date Type Department Care Team (Latest Contact Info) Description 11/13/2024 Travel Social History Tobacco Use Types Packs/Day [...] hopeless Not at all 11/13/2024 12:49 PM EDLuis Medeiros Patient Health Questionnaire -2 Score 0 11/13/2024 [...] way Not at all 11/13/2024 12:49 PM EDT Luis Smith Patient Health Questionnaire -9 Score 0 11/13/2024 12:49 PM EDT Luis Smith * If you checked off any problems on this questionnaire so far, Question Answer Date of Assessment Author How difficult have these problems made it for you to do your work, take care of things at home, or get along with other people? Not difficult at all 11/13/2024 12:49 PM EDLuis Medeiros documented as of this encounter Plan of Treatment Upcoming Encounters Date Type Department Care Team ([facility] st Contact Info) Description 11/27/2024 11:00 AM EDT Clinical Support [facility] Hematology/BMT and Cellular Therapy Program [address] [place] [address] 11/27/2024 11:30 AM EDT Office Visit [facility] Hematology/BMT and Cellular Therapy Program [address] [phone] Catrachita Dior PA 800 [facility] [address] [place] [phone] 11/27/2024 1:30 PM EDT Clinical Support [facility] [address]01 [place] [address] 12/04/2024 9:15 AM EDT Office Visit [place] [facility] [address] 2[address] [place], [place] [phone] Trinidad Emery, DMD [address] [place], [place] [phone] 02/13/2025 3:00 PM EST Office Visit [facility] [address]01 [place] [address] Verena Montes PA 3101 [facility] 100 [place] [address] documented as of this encounter [...] documented as of this encounter Care Teams Facilities Operations Technician Relationship Specialty Start Date End Date Willi Frost MD [address] [place] [address] 1100 [place] [address] PCP - General 06/11/24 documented as of this encounter
--- OUTSIDE RECORDS SUMMARY | 2024-11-20 14:51 | XMS_ITS | Clinical Summary ---
Author Organization [facility] Address [address] [place] [address] Care Team Providers Care Bioinformatics Analyst Name Role Phone Willi Frost MD Primary Care Provider Allergies No known active allergies Medications cetirizine (ZyrTEC) 10 MG tablet Take 1 tablet by mouth daily. 7 tablet Active Additional Information Patient not taking.Reported on 11/13/2024 PONATinib (Iclusig) 45 MG chemo tablet Take 1 tablet (45 mg total) by mouth daily. Take with or without food. Swallowed whole. 30 tablet 1 5 12/08/19 25 Active Hospital, Clinic, or Other Facility Administered Medication Ordered Dose Route Frequency Start Date End Date Status penicillin G benzathine (Bicillin-LA) injection 2.4 Million UnitsIndications:Late latent syphilis 2.4 Million Units IM Every 7 days 11/13/2024 12/04/2024 Active Active Problems Problem Noted Date Diagnosed Date Second hand smoke exposure 10/08/2024 CML (chronic myelocytic leukemia) 09/10/2024 Encounters Date Type Department Care Team Description 11/20/2024 10:00 AM EDT Clinical Support [facility] [address] [place] [address] Susanne Escobar RN 11/20/2024 Travel 11/18/2024 Social Work Psych Oncology [address] [place] [address] Michelle Gamez LCSW 11/18/2024 Telephone [facility] [address] [place] [address] None, None 11/14/2024 Lab Requisition [facility] [address] [place] [address] Mk Pastrana MD Chronic myeloid leukemia, BCR/ABL-positive, 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) 11/14/2024 Lab Requisition [facility] [address] [place] [address] Mk Pastrana MD Chronic myeloid leukemia, BCR/ABL-positive, 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) 11/14/2024 Lab Requisition [facility] [address] [place] [address] Mk Pastrana MD Chronic myeloid leukemia, BCR/ABL-positive, 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) 11/14/2024 Lab Requisition [facility] [address] [place] [address] Mk Pastrana MD Chronic myeloid leukemia, BCR/ABL-positive, 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) 11/13/2024 1:00 PM EDT Office Visit [facility] [address] [place] [phone] Verena Montes PA Late latent syphilis (Primary Dx) 11/13/2024 11:00 AM EDT Clinical Support [facility] Hematology/BMT and Cellular Therapy Program [address] [facility], [facility] [place] [address] CML (chronic myelocytic leukemia) (CMS/HCC) 11/13/2024 Travel 11/13/2024 Lab Requisition [facility] [address] [place] [address] Mk Pastrana MD Acute myeloblastic leukemia, 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) 11/13/2024 Lab Requisition [facility] [address] [place] [address] Mk Pastrana MD Chronic myeloid leukemia, BCR/ABL-positive, 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) 11/13/2024 Lab Requisition [facility] [address] [place] [address] Mk Pastrana MD Chronic myeloid leukemia, BCR/ABL-positive, 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) 11/11/2024 Telephone [facility] Hematology/BMT and Cellular Therapy Program [address] [facility], [address] [place] [address] [place] [address] Mk Pastrana MD 11/11/2024 Lab Requisition [facility] [address] [place] [address] Moises Estrada MD General medical exam 11/05/2024 Telephone [facility] [address] [place] [address] Quinntroyrichar Cee 11/01/2024 Lab Requisition [facility] [address] [place] [address] Dary Vincent APRN Acute myeloblastic leukemia, not having achieved remission ([facility]/HCC) 10/31/2024 Lab Requisition [facility] [address] [place] [address] Moises Estrada MD General medical exam 10/30/2024 8:30 AM EDT Office Visit [facility] Hematology/BMT and Cellular Therapy Program [address] [place] [address] Radha Morelos APRN CML (chronic myelocytic leukemia) ([facility]) (Primary Dx) 10/30/2024 8:00 AM EDT Clinical Support [facility] Hematology/BMT and Cellular Therapy Program [address] [place] [address] Gisselle Shaffer RN 10/30/2024 Social Work Psych Oncology [address] [place] [address] Michelle Gamez LCSW 10/30/2024 Travel 10/30/2024 Lab Requisition [facility] [address] [place] [address] Dary Vincent, MARCY Chronic myeloid leukemia, BCR/ABL-positive, not having achieved remission ([facility]/HCC) 10/28/2024 Orders Only [facility] Hematology/BMT and Cellular Therapy Program [address] [place] [address] Virgilio King RN CML (chronic myelocytic leukemia) ([facility]/HCC) (Primary Dx) 10/23/2024 Lab Requisition [facility] [address] [place] [address] Moises Estrada MD General medical exam 10/18/2024 Lab Requisition [facility] [address] [place] [address] Dary Vincent, MARCY Chronic myeloid leukemia, BCR/ABL-positive, not having achieved remission ([facility]/HCC) 10/14/2024 Telephone [facility] Hematology/BMT and Cellular Therapy Program [address] [address] Mk Pastrana MD 10/14/2024 Lab Requisition [facility] [address] [place] [address] Moises Estrada MD General medical exam 10/10/2024 Telephone [facility] Hematology/BMT and Cellular Therapy Program [address] [place] [address] Michelle Sims RN 10/10/2024 Lab Requisition [facility] [address] [place] [address] Dary Vincent APRN Acute myeloblastic leukemia, not having achieved remission ([facility]/HCC) 10/08/2024 10:00 AM EDT Office Visit [facility] Hematology/BMT and Cellular Therapy Program [address] [place] [address] [place] [address] Mk Pastrana MD CML (chronic myelocytic leukemia) ([facility]) (Primary Dx); Encounter for antineoplastic chemotherapy; Acquired syphilis 10/08/2024 9:30 AM EDT Office Visit [facility] Hematology/BMT and Cellular Therapy Program [address] [place] [address] 10/08/2024 Telephone [facility] Interventional Radiology [address] [place] [address] Radha Mary RN 10/08/2024 Telephone [facility] [address] [place] [address] Erwin Valentin, PharmD new start 10/08/2024 Travel 10/08/2024 Lab Requisition [facility] [address] [place] [address] Moises Estrada MD General medical exam 10/07/2024 Travel 10/07/2024 Orders Only [facility] Hematology/BMT and Cellular Therapy Program [address] [place] [address] Virgilio King RN CML (chronic myelocytic leukemia) ([facility]) (Primary Dx) 10/04/2024 Lab Requisition [facility] [address] [place] [address] Dary Vincent APRN Chronic myeloid leukemia, BCR/ABL-positive, not having achieved remission ([facility]) 10/03/2024 9:00 AM EDT Procedure Visit [facility] Hematology/BMT and Cellular Therapy Program [address] [address] Bhavana Bella APRN CML (chronic myelocytic leukemia) ([facility]) (Primary Dx) 10/03/2024 8:30 AM EDT Clinical Support [facility]ematology/BMT and Cellular Therapy Program [address] [place] [address] [place] [address] 10/03/2024 Telephone [facility] Hematology/BMT and Cellular Therapy Program [address] [place] [address] Oralia Liu RN 10/03/2024 Travel 10/02/2024 Travel 09/25/2024 3:00 PM EDT - 09/25/2024 11:59 PM EDT Hospital Encounter [facility] Pulmonary Function Testing [address] [place] [address] CML (chronic myelocytic leukemia) ([facility]/HCC) Discharge Disposition: Home or Self Care 09/25/2024 2:00 PM EDT - 09/25/2024 2:59 PM EDT Hospital Encounter [facility] Echo [address] [facility] 2nd [place] [address] CML (chronic myelocytic leukemia) ([facility]/HCC) Discharge Disposition: Home or Self Care 09/25/2024 1:24 PM EDT - 09/25/2024 1:59 PM EDT [facility] En[facility] [address] 1[address] [place] [address] Discharge Disposition: Home or Self Care 09/25/2024 1:00 PM EDT Clinical Support [facility] Hematology/BMT and Cellular Therapy Program [address] [address] Jocelin Ahuja RN CML (chronic myelocytic leukemia) ([facility]/HCC) (Primary Dx) 09/25/2024 11:00 AM EDT Office Visit [facility] Hematology/BMT and Cellular Therapy Program [address] [address] Elena Ledezma APRN CML (chronic myelocytic leukemia) ([facility]/HCC) 09/25/2024 10:00 AM EDT Clinical Support [facility] Hematology/BMT and Cellular Therapy Program [address] [address] CML (chronic myelocytic leukemia) ([facility]/HCC) 09/25/2024 Social Work Psych Oncology [address] [place] [address] Michelle Gamez LCSW 09/25/2024 Orders Only [facility] Hematology/BMT and Cellular Therapy Program [address] [address] Leo De Souza RN CML (chronic myelocytic leukemia) (CMS/HCC) (Primary Dx) 09/25/2024 Telephone [facility] H[facility]ology/BMT [facility] Cellular Therapy Program [address] [address] Tg Rodgers RN 09/25/2024 Travel 09/19/2024 Social Work Psych Oncology [address] [place] [address] Michelle Gamez LCSW 09/17/2024 Orders Only [facility] Hematology/BMT and Cellular Therapy Program [address] [place] [address] Leo De Souza RN CML (chronic myelocytic leukemia) ([facility]/HCC) (Primary Dx) 09/11/2024 3:00 PM EDT Office Visit [facility] [address] [place] [address] Michelle Garza Cancer ([facility]) (Primary Dx); Extraction of tooth needed 09/11/2024 Travel 09/11/2024 Orders Only [facility] Hematology/BMT and Cellular Therapy Program [address] [place] [address] Leo De Souza RN CML (chronic myelocytic leukemia) ([facility]/HCC) (Primary Dx) 09/10/2024 1:34 PM EDT - 09/10/2024 11:59 PM EDT Hospital Encounter [facility] 2 [address] [place] [address] CML (chronic myelocytic leukemia) ([facility]/HCC) (Primary Dx) Discharge Disposition: Home or Self Care 09/10/2024 11:30 AM EDT Office Visit [facility] Hematology/BMT [facility] Cellular Therapy Program [address] [address] Bhavana Bella APRN CML (chronic myelocytic leukemia) ([facility]/HCC) (Primary Dx) 09/10/2024 11:00 AM EDT Clinical Support [facility] Hematology/BMT and Cellular Therapy Program [address] [place] [address] Tony Foreman RN 09/10/2024 Telephone [facility] Hematology/BMT and Cellular Therapy Program [address] [place] [address] [place] [address] Tg Rodgers RN 09/10/2024 Travel 08/28/2024 2:00 PM EDT [facility] [address] [place], [place] [phone] Michelle Garza CML (chronic myelocytic leukemia) (CMS/HCC) 08/28/2024 8:29 AM EDT - 08/28/2024 11:59 PM EDT Hospital Encounter [facility] [address] [place] [phone] CML (chronic myelocytic leukemia) (CMS/HCC); Hyperbilirubinemia; Hepatosplenomegaly Discharge Disposition: Home or Self Care 08/28/2024 Social Work Psych Oncology [address] [place] [address] Michelle Gamez LCSW 08/28/2024 Orders Only [facility] Hematology/BMT and Cellular Therapy Program [address] [place] [address] Jojo Iyer, PharmD CML (chronic myelocytic leukemia) (CMS/HCC) (Primary Dx) 08/28/2024 Telephone [facility] Hematology/BMT and Cellular Therapy Program [address] [place] [address] [place] [address] Jocelin Ahuja RN critical lab 08/28/2024 Travel 08/27/2024 Travel 08/20/2024 9:30 AM EDT Office Visit [facility] Hematology/BMT and Cellular Therapy Program [address] [place] [address] [place] [address] Mk Pastrana MD Encounter for antineoplastic chemotherapy (Primary Dx); CML (chronic myelocytic leukemia) (CMS/HCC); Hyperbilirubinemia; CML (chronic myeloid leukemia) (CMS/HCC); Hepatosplenomegaly 08/20/2024 9:00 AM EDT Clinical Support [facility] Hematology/BMT and Cellular Therapy Program [address] [place] [address] 08/20/2024 Social Work Psych Oncology [address] [place] [address] Michelle Gamez, BULLDOZER OPERATOR 08/20/2024 Travel from Last 3 Months Family History [...] F) 11/13/2024 12:49 PM EDT Respiratory Rate 14 10/08/2024 9:58 AM EDT Oxygen Saturation 100% 11/13/2024 12:49 PM EDT Inhaled Oxygen Concentration - - Weight 59 kg (130 lb 1.1 oz) 11/13/2024 12:49 PM EDT Height 167.6 cm (5' 6 ) 11/13/2024 12:49 PM EDT Body Mass Index 20.99 11/13/2024 12:49 PM EDT Plan of Treatment Upcoming Encounters Date Type Department Care Team ([facility] Contact Info) Description 11/27/2024 11:00 AM EDT Clinical Support [facility] Hematology/BMT and Cellular Therapy Program [address] [place] [address] 11/27/2024 11:30 AM EDT Office Visit [facility] Hematology/BMT and Cellular Therapy Program [address] [place] [address] Catrachita Dior PA [address] [facility] [address] [place] [address] 11/27/2024 1:30 PM EDT Clinical Support [facility] [address] [place] [phone] 12/04/2024 9:15 AM EDT Office Visit [facility] [address] [place] [address] Trinidad Emery, STEPHANIE [address] [place], [place] [phone] 02/13/2025 3:00 PM EST Office Visit [address] [phone] Verena Montes PA [address] [facility] [address] [place] [phone] Health Maintenance Due Date Last Done Comments Dental Prophylaxis 1972 Dental X-Ray: Bitewings 1972 [facility]-Infant/Child/Adol SDOH Screenings 1972 [id number] Vaccine (#1) 1977 [facility]- SDOH Screenings 1990 [...] Dental Oral Exam 03/01/2025 08/28/2024 [facility]-Depression Screening 11/13/2025 025, 11/13/2024 Dental X-Ray: Full Mouth 08/30/2027 08/28/2024 [facility]-HIV [...] AM EDT CML (chronic myelocytic leukemia) (CMS/HCC) HLA ANTIBODY TESTING (LSA) Routine 10/30/2024 8:20 AM EDT CML (chronic myelocytic leukemia) (CMS/HCC) NMDP DONOR SEARCH AND CELL ACQUISITION Routine 10/29/2024 9:00 AM EDT Chronic myeloid leukemia, BCR/ABL-positive, 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) BILL ONLY TYPE & SCREEN Routine 10/30/19 8:00 AM EDT General medical exam BILL ONLY ISOAGGLUTININ TITER Routine 10/29/2024 8:00 AM EDT General medical exam BILL ONLY HLA NGS HIGH RESOLUTION TYPING BMT NMDP DONOR Routine 10/29/2024 8:00 AM EDT Acute myeloblastic leukemia, 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) DONOR HLA TYPING Routine 10/29/2024 8:00 AM EDT Acute myeloblastic leukemia, 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) BILL ONLY HLA NGS HIGH RESOLUTION TYPING BMT NMDP DONOR Routine 10/25/2024 12:00 PM EDT Chronic myeloid leukemia, BCR/ABL-positive, 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) DONOR HLA TYPING Routine 10/25/2024 12:0 0 PM EDT Chronic myeloid leukemia, BCR/ABL-positive, 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) NMDP DONOR SEARCH AND CELL ACQUISITION Routine 10/25/2024 9:00 AM EDT Chronic myeloid leukemia, BCR/ABL-positive, 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) BILL ONLY ISOAGGLUTININ TITER Routine 10/25/2024 8:00 AM EDT General medical exam BILL ONLY TYPE & SCREEN Routine 10/26/19 8:00 AM EDT General medical exam BILL ONLY TYPE & SCREEN Routine 10/17/19 12:16 PM EDT General medical exam BILL ONLY ISOAGGLUTININ TITER Routine 10/16/2024 12:16 PM EDT General medical exam BILL ONLY HLA NGS HIGH RESOLUTION TYPING BMT NMDP DONOR Routine 10/16/2024 12:16 PM EDT Chronic myeloid leukemia, BCR/ABL-positive, 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) DONOR HLA TYPING Routine 10/16/2024 12:1 6 PM EDT Chronic myeloid leukemia, BCR/ABL-positive, 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) NMDP DONOR SEARCH AND CELL ACQUISITION Routine 10/16/2024 9:00 AM EDT Chronic myeloid leukemia, BCR/ABL-positive, not having achieved remission ([facility]/HCC) RPR TITER Routine 10/08/2024 9:39 AM EDT CML (chronic myelocytic leukemia) (CMS/HCC) RPR SCREENING WITH RFLEX TO TITER (REFLEX ONLY) Routine 10/08/2024 9:39 AM EDT CML (chronic myelocytic leukemia) (CMS/HCC) LACTATE DEHYDROGENASE, PLASMA Routine 10/08/2024 9:39 AM EDT CML (chronic myelocytic leukemia) (CMS/HCC) LIPASE, PLASMA Routine 10/08/2024 9:39 AM EDT CML (chronic myelocytic leukemia) ([facility]/HCC) AMYLASE, PLASMA Routine 10/08/2024 9:39 AM EDT CML (chronic myelocytic leukemia) (CMS/HCC) COMPREHENSIVE METABOLIC PANEL, PLASMA Routine 10/08/2024 9:39 AM EDT CML (chronic myelocytic leukemia) ([facility]/HCC) CBC WITH AUTO DIFFERENTIAL Routine 10/08/2024 9:39 AM EDT CML (chronic myelocytic leukemia) ([facility]) TREPONEMA PALLIDUM (SYPHILIS) ANTIBODIES WITH REFLEX TO RPR AND RPR TITER (THOSE WITH NO KNOWN SYPHILIS) Routine 10/08/2024 9:39 AM EDT CML (chronic myelocytic leukemia) ([facility]) BILL ONLY TYPE & SCREEN Routine 10/08/19 [...] myeloblastic leukemia, 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) NMDP DONOR SEARCH AND CELL ACQUISITION Routine 10/07/2024 9:00 AM EDT Chronic myeloid leukemia, BCR/ABL-positive, [...] 10/03/2024 11:45 AM EDT General medical exam NMDP DONOR SEARCH AND CELL ACQUISITION Routine 10/03/2024 9:00 AM EDT Acute myeloblastic leukemia, 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) BIOPSY BONE MARROW Routine 10/03/2024 9: 00 AM EDT CML (chronic myelocytic leukemia) ([facility]) BONE MARROW EXAM Routine 10/03/2024 8:48 AM EDT CML (chronic myelocytic leukemia) ([facility]/HCC) FISH, ONCOLOGY Routine 10/03/2024 8:48 AM EDT CML (chronic myelocytic leukemia) ([facility]) CHROMOSOME KARYOTYPE, ONCOLOGY Routine 10/03/2024 8:48 AM EDT CML (chronic myelocytic leukemia) ([facility]/HCC) MYELOID FOCUSED PANEL, 50 GENE Routine 10/03/2024 8:48 AM EDT CML (chronic myelocytic leukemia) (CMS/HCC) CYTOGENETICS TESTING, ONCOLOGY Routine 10/03/2024 8:48 AM EDT CML (chronic myelocytic leukemia) ([facility]/HCC) LEUKEMIA/LYMPHOMA - IMMUNOPHENOTYPING BY FLOW CYTOMETRY Routine 10/03/2024 8:48 AM EDT CML (chronic myelocytic leukemia) ([facility]/HCC) CBC WITH AUTO DIFFERENTIAL Routine 10/03/2024 8:18 AM EDT CML (chronic myelocytic leukemia) (CMS/HCC) [place] BREATHING CAPACITY TEST Routine 09/25/2024 4:31 PM EDT CML (chronic myelocytic leukemia) (CMS/HCC) ECHO, ADULT TRANSTHORACIC COMPLETE W/ STRAIN, 3D Routine 09/25/2024 2:54 PM EDT CML (chronic myelocytic leukemia) (CMS/HCC) XR CHEST 2 VIEWS Routine 09/25/2024 1:31 PM EDT CML (chronic myelocytic leukemia) ([facility]/HCC) ECG ADULT Routine 09/25/2024 10:38 AM EDT CML (chronic myelocytic leukemia) ([facility]) CREATININE CLEARANCE, 24 HOUR URINE Routine 09/25/2024 10:23 AM EDT CML (chronic myelocytic leukemia) ([facility]) CREATININE, PLASMA Routine 09/25/2024 10 :23 AM EDT CML (chronic myelocytic leukemia) ([facility]/HCC) APTT Routine 09/25/2024 10:23 AM EDT CML (chronic myelocytic leukemia) ([facility]/HCC) PROTHROMBIN TIME(PT) / INR Routine 09/25/2024 10:23 AM EDT CML (chronic myelocytic leukemia) ([facility]/HCC) TOXOPLASMA GONDII ANTIBODY, IGG (SO) Routine 09/25/2024 [...] AM EDT CML (chronic myelocytic leukemia) (CMS/HCC) [facility]QU[facility] Routine 09/19/2024 9:00 AM EDT Chronic myeloid leukemia, BCR/ABL-positive, 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) NMDP DONOR SEARCH AND CELL ACQUISITION Routine 09/18/2024 9:00 AM EDT Chronic myeloid leukemia, BCR/ABL-positive, 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) CBC WITH AUTO DIFFERENTIAL STAT 09/11/2024 3:05 [...] :40 PM EDT CML (chronic myelocytic leukemia) ([facility]) PREPARE PLATELETS Routine 09/10/2024 2:0 6 PM EDT CML (chronic myelocytic leukemia) ([facility]) QUANT DETECTION OF BCR-ABL1 MAJOR (P210) (SO) Routine 09/10/2024 11:12 AM EDT CML (chronic myelocytic leukemia) ([facility]) LIPASE, PLASMA Routine 09/10/2024 11:12 AM EDT CML (chronic myelocytic leukemia) ([facility]) AMYLASE, PLASMA Routine 09/10/2024 11:12 AM EDT CML (chronic myelocytic leukemia) ([facility]) PHOSPHORUS, PLASMA Routine 09/10/2024 11 :12 AM EDT CML (chronic myelocytic leukemia) ([facility]) MAGNESIUM, PLASMA Routine 09/10/2024 11: 12 AM EDT CML (chronic myelocytic leukemia) ([facility]) LACTATE DEHYDROGENASE, PLASMA Routine 09/10/2024 11:12 AM [...] Relevant to Health Maintenance Results * (ABNORMAL) Quant Detection of BCR-ABL1 Major (p210) (SO) (11/13/2024 11:04 AM EDT) Only the most recent of3 resultswithin the time period is included. Quant BCR-ABL1, Major (p210), Source Whole Blood 11/18/2024 12:28 PM EDT [facility]) Quant BCR-ABL1, Major (p210), Result Detected(A ) 11/18/2024 12:28 PM EDT [facility] ([facility]) Quant BCR-ABL1, Major (p210), IS Percent 24.3911 % 11/18/2024 12:28 PM EDT [facility]) Quant BCR-ABL1, Major (p210), EER See Note 11/18/2024 12:28 PM EDT [facility]) Blood Venous blood specimen / Unknown Venipuncture / Unknown 11/13/2024 11:04 AM EDT 11/13/2024 11:38 AM EDT [facility]) - 11/18/2024 12:28 PM EDT BCR::ABL1 fusion [...] (IS; see Zhu MC, et al. Leukemia. 2009;23:3640-7312). METHODOLOGY: Total RNA was isolated and converted [...] CML patients (Ashlee CHÁVEZ, et al. NE. 2003;349:6738-7345). ANALYTICAL SENSITIVITY: Limit of quantification: 0.0032 percent [...] developed and its performance characteristics determined by [facility]. It has not been cleared or approved by the U.S. Food and Drug Administration. This test was performed in a CLIA-certified laboratory and is intended for clinical purposes. Authorized individuals can access the [facility] Enhanced Report with an [facility] Connect account using the following link. Your local lab can assist you in obtaining the patient report if you don't have a Connect account. [email or web address] Performed By: [facility] [address] [place] [address] Bench Assembler Battery: Sunil Gomez MD, PhD CLIA Number: [id number] Mk Pastrana MD LAB BLOOD ORDERABLES Final Re sult Performing Organization Address City/Va Hospital/ZIP Co de Phone Number [facility] ([facility] [address] [place] [address] * HLA Antibody Testing (LSA) (10/30/2024 8:20 AM EDT) Blood Venous blood specimen / Unknown Venipuncture / Unknown 10/30/2024 8:20 AM EDT 10/30/2024 8:54 AM EDT Mk Pastrana MD LAB BLOOD ORDERABLES Final Re sult Performing Organization Address [facility] Hospital/[facility] Co de Phone Number [facility] [address] [place] [address], * (ABNORMAL) CBC and Differential (10/30/2024 8:20 AM EDT) Only the most recent of7 resultswithin the time period is included. WBC Count 3.45(L) 3.70 - 10.30 10*3/uL LAB HEMATOLOGY METHOD 10/30/2024 8:30 AM EDT [facility] RBC Count 4.11 3.90 - 5.20 10*6/uL LAB HEMATOLOGY METHOD 10/30/2024 8:30 AM EDT [facility] HGB 13.0 11.2 - 15.7 g/dL LAB HEMATOLOGY METHOD 10/30/2024 8:30 AM EDT [facility] HCT 39.2 34.0 - 45.0 % LAB HEMATOLOGY METHOD 10/30/2024 8:30 AM EDT [facility] Platelet Count 135(L) 155 - 369 10*3/uL LAB HEMATOLOGY METHOD 10/30/2024 8:30 AM EDT [facility] MCV 95 79 - 98 fL LAB HEMATOLOGY METHOD 10/30/2024 8:30 AM EDT [facility] MCH 31.6 26.0 - 32.0 pg LAB HEMATOLOGY METHOD 10/30/2024 8:30 AM EDT [facility] MCHC 33.2 30.7 - 35.5 g/dL LAB HEMATOLOGY METHOD 10/30/2024 8:30 AM EDT [facility] RDW 15.5(H) 11.5 - 14.5 % LAB HEMATOLOGY METHOD 10/30/2024 8:30 AM EDT [facility] MPV 10.6 8.8 - 12.5 fL LAB HEMATOLOGY METHOD 10/30/2024 8:30 AM EDT [facility] nRBC 0.0 <=0.0 per 100 WBCs LAB HEMATOLOGY METHOD 10/30/2024 8:30 AM EDT [facility] Differential Type Automated LAB HEMATOLOGY METHOD 10/30/2024 8:30 AM EDT [facility] Neutrophils % 60 % LAB HEMATOLOGY METHOD 10/30/2024 8:30 AM EDT [facility] Lymphocytes % 30 % LAB HEMATOLOGY METHOD 10/30/2024 8:30 AM EDT [facility] Monocytes % 8 % LAB HEMATOLOGY METHOD 10/30/2024 8:30 AM EDT [facility] Eosinophils % 1 % LAB HEMATOLOGY METHOD 10/30/2024 8:30 AM EDT [facility] Basophils % 1 % LAB HEMATOLOGY METHOD 10/30/2024 8:30 AM EDT [facility] Immature Granulocytes % 0 % LAB HEMATOLOGY METHOD 10/30/2024 8:30 AM EDT [facility] Neutrophils Absolute 2.05 1.60 - 6.10 10*3/uL LAB HEMATOLOGY METHOD 10/30/2024 8:30 AM EDT [facility] Lymphocytes Absolute 1.04(L) 1.20 - 3.90 10*3/uL LAB HEMATOLOGY METHOD 10/30/2024 8:30 AM EDT [facility] Monocytes Absolute 0.29(L) 0.30 - 0.90 10*3/uL LAB HEMATOLOGY METHOD 10/30/2024 8:30 AM EDT [facility] Eosinophils Absolute 0.04 0.00 - 0.50 10*3/uL LAB HEMATOLOGY METHOD 10/30/2024 8:30 AM EDT [facility] Basophils Absolute 0.02 0.00 - 0.10 10*3/uL LAB HEMATOLOGY METHOD 10/30/2024 8:30 AM EDT [facility] Immature Granulocytes Absolute 0.01 0.00 - 0.06 10*3/uL LAB HEMATOLOGY METHOD 10/30/2024 8:30 AM EDT [facility] Blood Venous blood specimen / Unknown Venipuncture / Unknown 10/30/2024 8:20 AM EDT 10/30/2024 8:28 AM EDT [facility] - 10/30/2024 8:30 AM EDT Therapeutic decision making should be based on absolute values, rather than percentages. [facility] BLOOD ORDERABLES Final Re sult Performing Organization Address City/[facility] de Phone Number [facility] [address] [place] [address] * Lipase (10/30/2024 8:20 AM EDT) Only the most recent of4 resultswithin the time period is included. Lipase, Plasma 21 19 - 63 U/L 10/30/2024 9:09 AM EDT [facility] Blood Venous blood specimen / Unknown Venipuncture / Unknown 10/30/2024 8:20 AM EDT 10/30/2024 8:37 AM EDT [facility] Final Re sult Performing Organization Address [facility] de Phone Number [facility] [address] [place] [address] * Lactate Dehydrogenase, Plasma (10/30/2024 8:20 AM EDT) Only the most recent of5 resultswithin the time period is included. LDH, Plasma 232 116 - 250 U/L 10/30/2024 9:09 AM EDT [facility] Comment:Hemolyzed, result ma y be falsely increased. Blood Venous blood specimen / Unknown Venipuncture / Unknown 10/30/2024 8:20 AM EDT 10/30/2024 8:37 AM EDT [facility]LOOD ORDERABLES Final Re sult Performing Organization Address City/[facility]/ZIP Co de Phone Number [facility] [address] [place] [address] * Amylase (10/30/2024 8:20 AM EDT) Only the most recent of4 resultswithin the time period is included. Pathologist [facility] Amylase 37 27 - 114 U/L 10/30/2024 9:09 AM EDT [facility] Blood Venous blood specimen / Unknown Venipuncture / Unknown 10/30/2024 8:20 AM EDT 10/30/2024 8:37 AM EDT Radha Morelos [employer] LAB BLOOD ORDERABLES Final Re sult [facility] [address] [place] [address] * (ABNORMAL) Comprehensive Metabolic Panel, Plasma (10/30/2024 8:20 AM EDT) Only the most recent of5 resultswithin the time period is included. Glucose, Plasma 86 74 - 99 mg/dL 10/30/2024 9:09 AM EDT [facility] BUN, Plasma 10 7 - 21 mg/dL 10/30/2024 9:09 AM EDT [facility] Creatinine, Plasma 0.81 0.60 - 1.10 mg/dL 10/30/2024 9:09 AM EDT [facility] BUN/Creatinine Ratio 12 10/30/2024 9:09 AM EDT [facility] Sodium, Plasma 141 136 - 145 mmol/L 10/30/2024 9:09 AM EDT [facility] Potassium, Plasma 4.9 3.6 - 4.9 mmol/L 10/30/2024 9:09 AM EDT [facility] Chloride, Plasma 106 97 - 107 mmol/L 10/30/2024 9:09 AM EDT [facility] CO2, Plasma 24 22 - 29 mmol/L 10/30/2024 9:09 AM EDT [facility] Anion Gap 11 6 - 16 mmol/L 10/30/2024 9:09 AM EDT [facility] Total Calcium, Plasma 9.4 8.9 - 10.2 mg/dL 10/30/2024 9:09 AM EDT [facility] Total Protein 7.3 6.3 - 7.9 g/dL 10/30/2024 9:09 AM EDT [facility] Albumin, Plasma 4.5 3.5 - 5.2 g/dL 10/30/2024 9:09 AM EDT [facility] AST, Plasma 21 10 - 35 U/L 10/30/2024 9:09 AM EDT [facility] ALT, Plasma 21 10 - 35 U/L 10/30/2024 9:09 AM EDT [facility] Alkaline Phosphatase, Plasma 127(H) 35 - 104 U/L 10/30/2024 9:09 AM EDT [facility] Total Bilirubin, Plasma 0.7 0.2 - 1.1 mg/dL 10/30/2024 9:09 AM EDT [facility] eGFRcr 87.5 mL/min/1.7 3m*2 10/30/2024 9:09 AM EDT [facility] Comment:Reported eGFRcr in m L/min/1.73m2 is based the CKD-EPI 2020 equation that does not use a race coefficient. Blood Venous blood specimen / Unknown Venipuncture / Unknown 10/30/2024 8:20 AM EDT 10/30/2024 8:37 AM EDT us Radha Morelos APRN LAB BLOOD ORDERABLES Final Re sult [facility] [address] [place] [address] * [facility] Donor Search and Cell Acquisition (10/29/2024 9:00 AM EDT) Only the most recent of7 resultswithin the time period is included. Service [facility] Management of Unrelated Donor Search 11/14/2024 6:55 PM EDT [facility] Service Date: 10/29/2024 11/14/2024 6:55 PM EDT [facility] Invoice No.: [id number] 11/14/2024 6:55 PM EDT [facility] Grid Number [id number] 10/2024 6:55 PM EDT [facility] NMDP (NMDP Donor Search ) 10/29/2024 9:00 AM EDT 11/14/2024 5:46 PM EDT Mk Pastrana MD LAB BLOOD ORDERABLES Final Re sult Performing Organization Address [facility] Co de Phone Number [facility] [address] [place] [address] * BILL ONLY HLA NGS High Resolution Typing NMDP Donor (RESEARCH ONLY) (10/29/2024 8:00 AM EDT) Only the most recent of5 resultswithin the time period is included. Blood Venous blood specimen / Unknown 10/29/2024 8:00 AM EDT 11/01/2024 3:15 PM EDT Dary Vincent APRN LAB BLOOD ORDERABLES Final Result Performing Organization Address [facility] de Phone Number [facility] [address] [place] [address], [place] * Bill Only Isoagglutinin Titer (10/29/2024 8:00 AM EDT) Only the most recent of5 resultswithin the time period is included. Blood Bank Lab Only (Blood Bank Lab Only) 10/29/2024 8:00 AM EDT 11/11/2024 9:40 AM EDT Moises Estrada MD LAB BLOOD BANK TEST ORDERAB LES Final Result Performing Organization Address [facility] de Phone Number BLOOD BANK [address] [place] [address], [place] * Bill Only Type & Screen (10/29/2024 8:00 AM EDT) Only the most recent of5 resultswithin the time period is included. Blood Bank Lab Only (Blood Bank Lab Only) 10/29/2024 8:00 AM EDT 11/11/2024 9:40 AM EDT Moises Estrada MD LAB BLOOD BANK TEST ORDERAB LES Final Result Performing Organization Address [facility] Co de Phone Number BLOOD BANK [address] [place] [address], * HLA Typing, Donor (HLATWD) (10/29/2024 8:00 AM EDT) Only the most recent of5 resultswithin the time period is included. HLA Lab Only (HLA Lab Only) 10/29/2024 8:00 AM EDT 11/01/2024 3:15 PM EDT Dary Vincent APRN LAB BLOOD ORDERABLES Final Result Performing Organization Address [facility] Co de Phone Number [facility] [address] [place] [address], [place] * (ABNORMAL) RPR Screening with Rflex to Titer (10/08/2024 9:39 AM EDT) Rapid Plasma Reagin Reactive( A) Non Reactive 10/09/2024 1:33 AM EDT [facility] Blood Venous blood specimen / Unknown Venipuncture / Unknown 10/08/2024 9:39 AM EDT 10/08/2024 9:57 AM EDT Mk Pastrana MD LAB BLOOD ORDERABLES Final Re sult Performing Organization Address [facility] Co de Phone Number [facility] [address] [place] [address] * (ABNORMAL) Treponema Pallidum (Syphilis) Antibodies with [...] ORDERABLES Final Re sult Performing Organization Address [facility] de Phone Number [facility] [address] [place] [address] * (ABNORMAL) RPR Titer (10/08/2024 9:39 AM EDT) RPR Titer Pos 1:1(A) <1:1 10/09/2024 2:18 AM EDT [facility] Blood Venous blood specimen / Unknown Venipuncture / Unknown 10/08/2024 9:39 AM EDT 10/08/2024 9:57 AM EDT Mk Pastrana MD LAB BLOOD ORDERABLES Final Re sult Performing Organization Address [facility] de Phone Number [facility] [address] [place] [address] * BIOPSY BONE MARROW (10/03/2024 9:00 AM [...] to surronding structures. Alternatives discussed: Delayed treatment Jameson protocol: Procedure explained and questions answered to [...] detected on 06/15/2023. Gene: DNMT3A Mutation: c.1208delA; p.[id number] Allele Frequency (%): 43% Gene: ASXL1 Mutation: c.1934dupG; p.[id number] Allele Frequency (%): 26% ID: [id number] Gene: BCOR Mutation: c.4936delC; p.[id number] 8 Allele Frequency (%): 11% Additional Details on Mutation Identified: Gene Transcript Genome Chrom Coordinate RefVar DNMT3A [id number] Hg19 2 [id number] Jose ASXL1 [id number] Hg19 20 [id number] dupG BCOR [id number] Hg19 X [id number] delC 10/14/2024 5:04 PM EDT [facility] Methodology The following 50 genes [...] then sequenced on the Illumina NextSeq 2000 ([employer], [place]). A custom bioinformatics pipeline aligns [...] of hematologic malignancies. 10/14/2024 5:04 PM EDT [facility] Disclaimer This test was developed and its performance characteristics determined by the Clinical Molecular and Genomic Pathology Laboratory at the [facility]. It has not been cleared [...] clinical laboratory testing. 10/14/2024 5:04 PM EDT [facility] Pathologist Signature Reviewed by: Og Duque 10/14/2024 5:04 PM EDT [facility] Bone Marrow Specimen from bone marrow obtained by aspiration / Unknown Non-blood Collection / Unknown 10/03/2024 8:48 AM EDT 10/03/2024 10:21 AM EDT us Mk Pastrana MD LAB MOLECULAR DIAGNOSTICS ORD ERABLES Final Result [facility] [address] [place] [address], * FISH, Oncology (10/03/2024 8:48 AM EDT) Specimen Type Bone Marrow 10/10/2024 2:57 PM EDT [facility] Clinical Indication Chronic Myelogenous Leukemia 10/10/2024 2:57 PM EDT [facility] Specimen Adequacy Adequate 025 2:57 PM EDT [facility] Interpretation ABL1/ASS1/BCR FISH: IMPRESSION: [...] cells with an additional copies of the [place] chromosome. Gain of a Ph chromosome is one of the common additional cytogenetic abnormalities (ACAs) in CML. Additional chromosomal abnormalities (ACAs) are frequent in CML patients, and are considered a hallmark of multistep disease progression, associated with an adverse prognostic effect during the progressive or advanced stages of CML (Marlee TUCKER et al., 2019. PMID: [id number]). 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 Clinical correlation is recommended. 10/10/2024 2:57 PM EDT [facility] ISCN nuc hilda(ABL1x3,ASS1x2, BCRx3)(ABL1 con ASS1x1)(ABL1 con ASS1 con BCRx1)(ABL1 con BCRx1)[144/200]/(A BL1x5,ASS1x4,BCRx5 )(ABL1 con ASS1x2)(ABL1 con ASS1 con BCRx2)(ABL1 con BCRx2)[200]/(ABL 1x6,ASS1x4,BCRx6)( ABL1 con ASS1x2)(ABL1 con ASS1 con BCRx2)(ABL1 con BCRx2)[200]/(ABL 1x4,ASS1x2,BCRx5)( ABL1 con ASS1x1)(ABL1 con ASS1 con BCRx1)(ABL1 con BCRx2)[200]/(ABL 1x5,ASS1x4,BCRx4)( ABL1 con ASS1x2)(ABL1 con ASS1 con BCRx2)(ABL1 con BCRx1)[200]/(ABL 1x5,ASS1x3,BCRx5)( ABL1 con ASS1x2)(ABL1 con ASS1 con BCRx1)(ABL1 con BCRx2)[200] METHOD: Fluorescence in situ hybridization (FISH) was performed using 3 Vysis/Segundo fluorescent labeled probes which hybridize to the following chromosomal regions: ABL1(9q34), ASS1(9q34) and BCR(22q11.2). One metaphase cell was analyzed and probe location was confirmed for these assays. At least one metaphase cell and 200 interphase cells are analyzed for a complete FISH test, and international sales representative images were captured and stored using Kerlink software ([employer] The normal controls ran in parallel with this specimen gave the expected hybridization results. The normal cutoffs for bone marrow and peripheral blood for marrow have been established in this lab by probe validation. 10/10/2024 2:57 PM EDT [facility] Disclaimer This test was developed and its performance characteristics determined by the [facility]. It has not been cleared [...] perform high complexity clinical laboratory testing. See [id number] for the chromosome analysis results on this specimen. 10/10/2024 2:57 PM EDT [facility] Pathologist Signature Reviewed by: Og Duque 10/10/2024 2:57 PM EDT [facility] Bone Marrow Non-blood Collection / Unknown 10/03/2024 8:48 AM EDT 10/03/2024 10:49 AM EDT us Mk Pastrana MD LAB CYTOGENETICS ORDERABLES F inal Result [facility] [address] [place] [address] * Chromosome Karyotype, Oncology (10/03/2024 8:48 AM EDT) Specimen Type Bone Marrow 10/10/2024 5:48 PM EDT [facility] Clinical Indication Chronic Myelogenous Leukemia 10/10/2024 5:48 PM EDT [facility] Specimen Adequacy Adequate 025 5:48 PM EDT [facility] Chromosome Analysis Result Giemsa-banded metaphase cells from unstimulated bone marrow cultures showed the following chromosome pattern: 46,XX,t(9;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 All [...] achieve complete cytogenetic and molecular remission ([facility] et al., 2022. PMID: [id number]). These findings also indicate progression of current condition. Clinical correlation is recommended. Note: Per [employer] (CAP) requirement additional karyotypes were performed and charged due to the presence of clonal abnormalities. See [id number] for the FISH analysis results. # cells counted = 20 # cells analyzed = 20 # cells karyotyped = 4 Band resolution: 400-425 10/10/2024 5:48 PM EDT [facility] Pathologist Signature Reviewed by: Og Duque 10/10/2024 5:48 PM EDT [facility] Bone Marrow Non-blood Collection / Unknown 10/03/2024 8:48 AM EDT 10/03/2024 10:49 AM EDT us Mk Pastrana MD LAB CYTOGENETICS ORDERABLES F inal Result [facility] [address] [place] [address] * Leukemia/Lymphoma - Immunophenotyping by Flow Cytometry (10/03/2024 8:48 AM EDT) Clinical Indication CML 10/03/2024 1:16 PM EDT [facility] Flow Cytometry Interpretation MIXED MARROW ELEMENTS WITHOUT EVIDENCE OF INCREASED BLASTS OR ABNORMAL LYMPHOID POPULATIONS, BONE MARROW ASPIRATE. 10/03/2024 1:16 PM EDT [facility] Comments Specimen viability is [...] lymphoid populations. Final interpretation requires morphologic correlation ([id number]). The following antibodies were used in this analysis: CD45, CD2, CD3, CD4, CD5, CD7, CD8, CD10, CD13, CD14, CD15, CD16, CD19, CD20, CD33, CD34, CD38, CD56, CD117, HLA-DR, kappa surface light chains, lambda surface light chains 10/03/2024 1:16 PM EDT [facility] Disclaimer This test was developed and its performance characteristics determined by the Immuno-Molecular Pathology Laboratory at the [facility]. It has not been cleared [...] clinical laboratory testing. 10/03/2024 1:16 PM EDT [facility] Pathologist Signature Reviewed by: Kathi Soria MD 10/03/2024 1:16 PM EDT [facility] MRD Indicated Test Not Indicated 1:16 PM EDT [facility] Bone Marrow Specimen from bone marrow obtained by aspiration / Unknown Non-blood Collection / Unknown 10/03/2024 8:48 AM EDT 10/03/2024 10:18 AM EDT us Mk Pastrana MD LAB FLOW CYTOMETRY ORDERABLES Final Result [facility] [address] [place] [address] * Bone marrow exam (10/03/2024 8:48 AM EDT) Case Report Bone Marrow Case: [id number] Authorizing Provider: Mk Pastrana MD Collected: 10/03/2024 0848 Ordering Location: [facility] Hematology/BMT and Received: 10/03/2024 0954 Cellular Therapy Program Pathologist: Kathi Soria MD Specimens: A) - Bone Marrow Aspirate, left B) - Bone Marrow Biopsy, left C) - Peripheral Blood for Bone Marrow 1:31 PM EDT [facility] Cytogenetics Report, Addendum Chromosome Analysis Result [...] achieve complete cytogenetic and molecular remission ([facility] et al., 2022. PMID: [id number]). These findings also indicate progression of current condition. 1:31 PM EDT [facility] Addendum electronically signed by Kathi Soria [...] cells with an additional copies of the [place] chromosome. Gain of a Ph chromosome is one of the common additional cytogenetic abnormalities (ACAs) in CML. Additional chromosomal abnormalities (ACAs) are frequent in CML patients, and are considered a hallmark of multistep disease progression, associated with an adverse prognostic effect during the progressive or advanced stages of CML (Marlee TUCKER et al., 2019. PMID: [id number]). 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 1:31 PM EDT [facility] Addendum electronically signed by Kathi Soria MD on 10/23/2024 at 1331 EDT Addendum Myeloid Focused Panel, 50 gene: [id number] Interpretation The following three (3) genes with persistent variants have been detected in this bone marrow specimen. These gene variants were detected on 06/15/2023. 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 - MILD RETICULIN FIBROSIS (PATCHY GRADE 1); NO INCREASE IN BLASTS, SEE COMMENT. 1:31 PM EDT [facility] at 1518 EDT Comment The patient has a history of chronic myeloid leukemia, and accompanying karyotype on prior specimen showed the presence of the [place] chromosome ([id number]). In the current specimen, erythroid precursors show megaloblastoid changes. Granulopoiesis is reduced and left-shifted. Megakaryocytes are increased in some of the aspirate spicules and exhibit small hypolobated forms. There is no evidence of increased blasts or increased fibrosis in the current specimen. Clinical correlation is recommended. 1:31 PM EDT [facility] Clinical Information CML ([place] positive) Now worsening neutropenia and thrombocytopenia 1:31 PM EDT [facility] CBC and Differential PERIPHERAL [...] and show normal morphology. 1:31 PM EDT [facility] Bone Marrow Differential BONE MARROW DIFFERENTIAL: 300 cells Normal Patient Neutrophils 15-50 9 Metamyelocytes 4-19 9 Myelocytes 1-18 13 Promyelocytes 1-8 10 Blasts 0-2 1 Monocytes 0-5 2 Erythroid 16-38 50 Lymphocytes 3-24 2 Eosinophils 0-6 2 Basophils 0-2 1 Plasma cells 0-4 1 Other 1:31 PM EDT [facility] Bone Marrow Aspirate and Biopsy [...] Bone trabeculae are unremarkable. 1:31 PM EDT [facility] Special and Immunohistochemical Stains Immunohistochemica l stains [...] developed by and are performed at the [facility], [address] [place] [address]. All tests reported here, except those addressing [...] false negativity on decalcified specimens. 1:31 PM T [facility] Flow Cytometry Interpretation MIXED MARROW ELEMENTS WITHOUT EVIDENCE OF INCREASED BLASTS OR ABNORMAL LYMPHOID POPULATIONS, BONE MARROW ASPIRATE ([id number]). 1:31 PM T [facility] CYTOGENETICS/MOLECUL AR INTERPRETATION Correlation with cytogenetics/FISH/ molecular analysis is suggested. 1:31 PM T [facility] Gross Description B. LEFT A single specimen is received in formalin labeled bone marrow biopsy left posterior iliac crest and consists of 2 piece(s) of red/white tissue measuring 0.4/0.6 cm in length 0.2 cm in diameter. The specimen is submitted in to Histology for decalcification and routine processing. Cold Time: 1m 1:31 PM T [facility] Note: A resident was involved in the service. I attest I examined the relevant preparations for the specimens and confirmed the diagnosis or interpretation. 1:31 PM T [facility] Bone Marrow Peripheral blood [...] PATHOLOGY ORDERABLES Edit ed Result - Final [facility] [address] [place] [address] * Pulmonary function testing (09/25/2024 4:31 PM EDT) [id number] 3.21 L 09/25/2024 4:28 PM EDT VYAIRE [...] 1.98 09/25/2024 4:28 PM EDT [facility]RE PFT [id number] -0.62 09/25/2024 4:28 PM EDT [facility] PFT FEV1_Pre%Pred 92 % % 09/25/2024 4:28 PM EDT VY[facility]RE PFT FEV1 PREDAUTH US_Quanjer GLI (2011) 09/25/2024 4:28 PM EDT VY[facility]RE PFT FEV1 Z-SCORE -0.62 09/25/2024 4:28 PM EDT [facility]RE PFT FEV1/FVC PRE 73.32 % 09/25/2024 4:28 PM EDT VYAIRE PFT [id number] 81 09/25/2024 4:28 PM EDT VYAIRE PFT FEV1/FVC PRELLN 71 4:28 PM EDT VYAIRE PFT [id number] -1.25 09/26/19 25 4:28 PM EDT VYAIRE PFT MFA5JEOIIN%PRED 91 % % 4:28 PM EDT [facility] [id number] [facility] MOSLEY (2011) 09/25/2024 4:28 PM EDT VYAIRE PFT JED9UNXZCZFAS -1 09/25/2024 4:28 PM EDT VYAIRE PFT EXT51-72% PRE 1.73 L/s 09/25/2024 4:28 PM EDT VYAIRE PFT KKC51-90%_Pred 2.51 09/25/2024 4:28 PM EDT VYAIRE PFT RXA92-76% PRELLN 1.38 09/26/19 4:28 PM EDT VYAIRE PFT POT1953%PREZSCORE -1.08 025 4:28 PM EDT VYAIRE PFT SIW2957%PRE%PRED 69 % % 09/26/19 4:28 PM EDT VYAIRE PFT IFA6884%PREDAUTBoise Veterans Affairs Medical Centerjoel DIMITRI (2011) 09/25/2024 4:28 PM EDT VYAIRE [...] (1992) 09/25/2024 4:28 PM EDT VYAIRE PFT QYALKJJNQYNXDQCD5ICK 13.30 ml/(min* mmHg) 09/25/2024 4:28 PM EDT VYAIRE PFT DLCOSINGLEBREATH PRED 20.70 09/25/2024 4:28 PM EDT VYAIRE PFT DLCOSINGLEBREATH LLN 16.09 09/08 4:28 PM EDT VYAIRE PFT DLCOSINGLEBREATH Z-SCORE -2.83 09/25/2024 4:28 PM EDT VYAIRE PFT DLCOSINGLEBREATH % PRED 64.2 % 09/25/2024 4:28 PM EDT VYAIRE PFT DLCOSINGLEBREATH PREDAUTH Stanojevic TLCO GLI (2019) 09/25/2024 4:28 PM EDT VYAIRE PFT DLCOSINGLEBREATH Z-SCORE -2.83 09/25/2024 4:28 PM EDT VYAIRE PFT [id number] E 13.88 ml/(min* mmHg) 09/25/2024 4:28 PM EDT VYAIRE PFT DLCOCSINGLEBREATH PRED 20.70 09/25/2024 4:28 PM EDT VYAIRE PFT DLCOCSINGLEBREATH LLN 16.09 09/25/2024 4:28 PM EDT VYAIRE PFT DLCOCSINGLEBREATH Z-SCORE -2.56 09/25/2024 4:28 PM EDT VYAIRE PFT DLCOCSINGLEBREATH % PRED 67.1 % 09/25/2024 4:28 PM EDT VYAIRE PFT DLCOCSINGLEBREATH PREDAUTH Stanojevic TLCO GLI (2019) 09/25/2024 4:28 PM EDT VYAIRE PFT [id number] 2.90 ml/(min* mmHg*L) 09/25/2024 4:28 PM EDT VYAIRE PFT DLCOVAPRED 4.27 09/25/2024 4:28 PM EDT VYAIRE PFT DLCOVALLN 3.33 09/25/2024 4:28 PM EDT VYAIRE PFT DLCOVAZSCORE -2.47 09/25/2024 4:28 PM EDT VYAIRE PFT DLCOVA%PRED 68.0 % 09/25/2024 4:28 PM EDT VYAIRE PFT DLCOVAPREDAUTH Stanojevic TLCO GLI (2019) 09/25/2024 4:28 PM EDT VYAIRE PFT DLCOVAZSCORE -2.47 09/25/2024 4:28 PM EDT VYAIRE PFT [id number] 3.03 ml/(min* mmHg*L) 09/25/2024 4:28 PM EDT VYAIRE PFT DLCOC SB/VA PRED 4.27 09/26/19 4:28 PM EDT VYAIRE PFT DLCOC SB/VA LLN 3.33 4:28 PM EDT VYAIRE PFT DLCOC SB/VA Z-SCORE -2.21 09/25 4:28 PM EDT VYAIRE PFT DLCOC SB/VA % PRED 71.0 % 2024 4:28 PM EDT VYAIRE PFT DLCOC SB/VA PREDAUT Eliazarojevonvic TLCO GLI (2019) 09/25/2024 4:28 PM EDT VYAIRE PFT DLCOC SB/VA Z-SCORE -2.21 09/25 4:28 PM EDT VYAIRE PFT [id number] 4.58 L 2024 4:28 PM EDT VYAIRE PFT VASINGLEBREATH PRED 4.88 09/25 4:28 PM EDT VYAIRE PFT VASINGLEBREATH LLN 3.98 2024 4:28 PM EDT VYAIRE PFT VASINGLEBREATH Z-SCORE -0.52 09/25/2024 4:28 PM EDT VYAIRE PFT VASINGLEBREATH % PRED 94.0 % 09/25/2024 4:28 PM EDT VYAIRE PFT VASINGLEBREATH PREDAUTH Stanojevonvic TLCO GLI (2019) 09/25/2024 4:28 PM EDT VYAIRE PFT VASINGLEBREATH Z-SCORE -0.52 09/25/2024 4:28 PM EDT VYAIRE PFT [id number] 3.10 L 09/25 4:28 PM EDT VYAIRE PFT IVCSINGLEBREATH PRED 3.18 0611/2024 4:28 PM EDT VYAIRE PFT IVCSINGLEBREATH LLN 2.51 09/25 4:28 PM EDT VYAIRE PFT IVCSINGLEBREATH Z-SCORE -0.19 09/25/2024 4:28 PM EDT VYAIRE PFT IVCSINGLEBREATH % PRED 97.5 % 09/25/2024 4:28 PM EDT VYAIRE PFT IVCSINGLEBREATH PREDAUTH US_Quanjer GLI (2011) 09/25/2024 4:28 PM EDT VYAIRE PFT HB PRE 12.10 g(Hb)/dL 09/25/2024 4:28 PM EDT VYAIRE PFT [id number] 5.21 L 09/25/2024 4:28 PM EDT VYAIRE [...] (2019)__ 09/25/2024 4:28 PM EDT VYAIRE PFT [id number] 2.74 L 09/25/2024 4:28 PM EDT VYAIRE [...] (2019)__ 09/25/2024 4:28 PM EDT VYAIRE PFT LHT8JAY 0.68 L 09/25/2024 4:28 PM EDT VYAIRE PFT ERVPRED 1.01 09/25/2024 4:28 PM EDT VYAIRE PFT ERVLLN 0.40 09/25/2024 4:28 PM EDT VYAIRE PFT ERVULN 1.87 09/25/2024 4:28 PM EDT VYAIRE PFT ERV Z-SCORE -0.80 09/25/2024 4:28 PM EDT VYAIRE PFT ERV%PRED 67.5 % 09/25/2024 4:28 PM EDT VYAIRE PFT ERVPREDAUTH [facility] volumes GLI (2019)__ 09/25/2024 4:28 [...] (2019)__ 09/25/2024 4:28 PM EDT VYAIRE PFT RV%JXX5JKD 38.52 % 09/25/2024 4:28 PM EDT VYAIRE PFT RV%TLCPRED 30 09/25/2024 4:28 PM EDT VYAIRE PFT RV%TLCLLN 19 09/25/2024 4:28 PM EDT VYAIRE PFT RV%TLCULN 41 09/25/2024 4:28 PM EDT VYAIRE PFT RV%TLCZSCORE 1.32 09/25/2024 4:28 PM EDT VYAIRE PFT RV%TLC%PRED 130.0 % 09/25/2024 4:28 PM EDT VYAIRE PFT RV%TLCPREDAUTH [facility] volumes GLI (2019)__ 09/25/2024 4:28 PM EDT VYAIRE PFT HUL5BIZ 2.89 L 09/25/2024 4:28 PM EDT VYAIRE PFT Anatomical Region Laterality Modality PFT 09/25/2024 3:47 PM EDT Narrative 09/30/2024 8:27 AM EDT Pulmonary Function Testing Report Amita Ortiz 54 y.o. underwent pulmonary function testing today at the [facility]. The patient underwent spirometry, lung [...] g/m2 WINDY ISCV LV RWT 0.44 mm WNIDY ISCV LV EDV (3D HM) 117 mL [...] is no recent study available for direct emie-oc-gjow comparison. Left Ventricle The left ventricle is [...] is no recent study available for direct rpjm-wu-vhub comparison. us Mk Pastrana MD CV ECHO [...] ECG Atrial Rate 72 BPM MUSE ECG WY Interval 122 ms MUSE ECG QRSD Interval 64 ms MUSE ECG QT Interval 406 ms MUSE ECG QTC Interval 444 ms MUSE ECG P [place] 71 degrees MUSE ECG R [place] 54 degrees MUSE ECG T Wave [place] 87 degrees MUSE ECG Diagnosis Normal sinus rhythm MUSE ECG Diagnosis Low voltage QRS MUSE ECG Diagnosis Borderline ECG MUSE ECG Diagnosis MUSE ECG Diagnosis Confirmed by Arsalan Ko ([id number]) on 09/25/2024 11:05:04 AM MUSE ECG 09/25/2024 10:3 8 AM EDT 09/25/2024 11:05 AM EDT Mk Pastrana MD ECG ORDERABLES Final Result MUSE ECG * Stanislaw Benedict Virus (EBV) Quantitative PCR (09/25/2024 10:23 AM EDT) Stanislaw Benedict Virus, Blood, Quant DNA Interpretation Not Detected Not Detected 10/01/2024 6:35 AM EDT [facility] Blood Venous blood specimen / Unknown Venipuncture / Unknown 09/25/2024 10:23 AM EDT 09/25/2024 10:34 AM EDT Narrative [facility] - 10/01/2024 6:35 AM EDT EBV [...] developed and it's performance characteristics determined by [facility] as appropriate for clinical purposes. [...] developed and it's performance characteristics determined by [facility] as appropriate for clinical purposes. This assay has not been cleared or approved by the FDA, but is performed in a CLIA regulated laboratory that is qualified to perform high-complexity testing. us Mk Pastrana MD LAB BLOOD ORDERABLES Final Re sult [facility] [address] [place] [address] * (ABNORMAL) Creatinine Clearance, 24 Hour Urine (09/25/2024 10:23 AM EDT) Hours Of Collection 24 HRS 09/25/2024 11:25 AM EDT [facility] Urine, Volume 200 mL 09/25/2024 11:25 AM EDT [facility] Creatinine, Urine 201 mg/dL 09/25/2024 11:25 AM EDT [facility] Creatinine, Plasma 0.65 0.60 - 1.10 mg/dL 09/25/2024 11:25 AM EDT [facility] Creatinine Clearance 42.95(L) 66.00 - 108.00 mL/min 09/25/2024 11:25 AM EDT [facility] Creatinine per day, Urine 402(L) 500 - 1,600 mg/d 09/25/2024 11:25 AM EDT [facility] Urine Urine specimen obtained by clean catch procedure / Unknown Non-blood Collection / Unknown 09/25/2024 10:23 AM EDT 09/25/2024 10:24 AM EDT Mk Pastrana MD LAB URINE ORDERABLES Final Re sult [facility] [address] [place] [address] * ABO/Rh Type (09/25/2024 10:23 AM EDT) ABO/Rh AB Positive 09/25/2024 10:12 AM EDT BLOOD [facility] Blood Venous blood specimen / Unknown Venipuncture / Unknown 09/25/2024 10:23 AM EDT 09/25/2024 10:39 AM EDT Mk Pastrana MD LAB BLOOD BANK TEST ORDERABLE S Final Result Performing Organization Address [facility] Co de Phone Number BLOOD BANK [address] [place] [address], * Creatinine, Plasma (09/25/2024 10:23 AM EDT) Creatinine, Plasma 0.65 0.60 - 1.10 mg/dL 09/25/2024 11:17 AM EDT [facility] eGFRcr 106.1 mL/min/1.7 3m*2 09/25/2024 11:17 AM EDT [facility] Comment:Reported eGFRcr in m L/min/1.73m2 is based the CKD-EPI 2020 equation that does not use a race coefficient. Blood Venous blood specimen / Unknown Venipuncture / Unknown 09/25/2024 10:23 AM EDT 09/25/2024 10:34 AM EDT Mk Pastrana MD LAB BLOOD ORDERABLES Final Re sult [facility] [address] [place] [address] * Toxoplasma gondii antibody, IgG (09/25/2024 10:23 AM EDT) TOXOPLASMA IGG AB 3.7 <=8.8 IU/mL 09/27/2024 1:29 AM EDT [facility] Blood Venous blood specimen / Unknown Venipuncture / Unknown 09/25/2024 10:23 AM EDT 09/25/2024 10:34 AM EDT Narrative [facility] - 09/27/2024 1:29 [...] the amount of antibody present. Performed By: [facility] [address] [place] [address] Bench Assembler Battery: Sunil Gomez MD, PhD CLIA Number: [id number] Mk Pastrana MD LAB BLOOD ORDERABLES Final Re sult [facility] [address] [place] [address] * APTT (09/25/2024 10:23 AM EDT) Pathologist [facility] aPTT 28 25 - 35 sec LAB COAGULATION METHOD 09/25/2024 11:00 AM EDT [facility] Blood Venous blood specimen / Unknown Venipuncture / Unknown 09/25/2024 10:23 AM EDT 09/25/2024 10:34 AM EDT Mk Pastrana MD LAB BLOOD ORDERABLES Final Re sult Performing Organization Address [facility]/ZIP Co de Phone Number [facility] [address] [place] [address] * Prothrombin Time/INR (09/25/2024 10:23 AM EDT) Prothrombin Time 12.7 12.0 - 14.3 sec LAB COAGULATION METHOD 09/25/2024 11:00 AM EDT [facility] INR 0.9 0.9 - 1.1 LAB COAGULATION METHOD 09/25/2024 11:00 AM EDT [facility] Blood Venous blood specimen / Unknown Venipuncture / Unknown 09/25/2024 10:23 AM EDT 09/25/2024 10:34 AM EDT Narrative [facility] - 09/25/2024 11:00 AM EDT OPTIMAL INR RANGES FOR PATIENT ON ORAL ANTICOAGULANT THERAPY Prevention of venous thromboembolism INR 2.0 to 3.0 In patients with heart disease: Atrial fibrillation INR 2.0 to 3.0 Valvular heart disease INR 2.0 to 3.0 Tissue heart valves INR 2.0 to 3.0 Mechanical prosthetic valves INR 2.5 to 3.5 Prevention of recurrent IA INR 2.5 to 3.5 Mk Pastrana MD LAB BLOOD ORDERABLES Final Re sult Performing Organization Address City/[facility] Hospital/ZIP Co de Phone Number [facility] [address] [place] [address] * Thyroid Stimulating Hormone, Plasma (09/25/2024 10:23 AM EDT) Thyroid Stimulating Hormone, Plasma 1.01 0.40 - 4.20 uIU/mL 09/25/2024 11:17 AM EDT [facility] Blood Venous blood specimen / Unknown Venipuncture / Unknown 09/25/2024 10:23 AM EDT 09/25/2024 10:34 AM EDT Narrative [facility] - 09/25/2024 11:17 AM EDT Trimester Specific Ranges TSH ( IU/mL) 1st Trimester 0.1 - 3.0 2nd Trimester 0.19 - 4.06 3rd Trimester 0.3 - 3.7 us Mk Pastrana MD LAB BLOOD ORDERABLES Final Re sult Performing Organization Address City/[facility] Co de Phone Number [facility] [address] [place] [address] * (ABNORMAL) Ferritin (09/25/2024 10:23 AM EDT) Ferritin, Serum 294(H) 13 - 150 ng/mL 09/25/2024 11:17 AM EDT [facility] Blood Venous blood specimen / Unknown Venipuncture / Unknown 09/25/2024 10:23 AM EDT 09/25/2024 10:35 AM EDT us Mk Pastrana MD LAB BLOOD ORDERABLES Final Re sult Performing Organization Address [facility] [place] [address] * Transfuse platelets, Irradiated (09/10/2024 4:03 PM EDT) us Bhavana Bella APRN BLOOD TRANSFUSION ORDERABL ES Final Result * (ABNORMAL) Platelet Count, Blood (09/10/2024 3:41 PM EDT) Platelet Count 56(L) 155 - 369 10*3/uL LAB HEMATOLOGY METHOD 09/10/2024 3:45 PM EDT [facility] Blood Venous blood specimen / Unknown Venipuncture / Unknown 09/10/2024 3:41 PM EDT 09/10/2024 3:43 PM EDT us Bhavana Bella APRN LAB BLOOD ORDERABLES Final Result Performing Organization Address City/[facility] Co de Phone Number [facility] [address] [place] [address] * Prepare Leukocyte Reduced Platelets: 1 Units, Irradiated, Leukoreduced (09/10/2024 2:06 PM EDT) Product Code [id number] BLOO D BANK Dispense Status Transfused BLOOD BANK Blood Expiration Date [id number] BLOOD BANK Unit Number [id number] CH B LOOD BANK Product Blood Type 6200 BLOOD BANK Blood Type A+ BLOOD BANK Blood Venous blood specimen / Unknown us Bhavana Bella CYLINDER HEAD ASSEMBLER BLOOD BANK PRODUCT ORDERAB LES Final Result Performing Organization Address City/[facility] Hospital/ZIP Co de Phone Number BLOOD BANK [address] [place] [address], * Phosphorus, Plasma (09/10/2024 11:12 AM EDT) Only the most recent of2 resultswithin the time period is included. Phosphorus, Plasma 3.8 2.5 - 4.5 mg/dL 09/10/2024 12:10 PM EDT [facility] Blood Venous blood specimen / Unknown Venipuncture / Unknown 09/10/2024 11:12 AM EDT 09/10/2024 11:35 AM EDT Elena Ledezma APRN LAB BLOOD ORDERABLES Final Res ult [facility] [address] [place] [address] * Magnesium, Plasma (09/10/2024 11:12 AM EDT) Only the most recent of2 resultswithin the time period is included. Magnesium, Plasma 2.1 1.9 - 2.4 mg/dL 09/10/2024 12:10 PM EDT [facility] Blood Venous blood specimen / Unknown Venipuncture / Unknown 09/10/2024 11:12 AM EDT 09/10/2024 11:35 AM EDT Elena L Meikel CYLINDER HEAD ASSEMBLER LAB BLOOD ORDERABLES Final Res ult [facility] [address] [place] [address] * US Abdomen Focused Region Liver, Spleen [...] ( e 7 mm) - Surgical consult. https://pubs.rsna.org/doi/abs/10.1148/radiol.495786. CRITICAL RESULT: No. COMMUNICATION: Per this written [...] - Size - 4 mm Morphology: Pedunculated klly-uj-ncx-wall or thin stalk Focal adjacent wall thickening >4mm: not present Polyp # 2 - Size - 4 mm Morphology: Pedunculated bnsz-hm-egg-wall or thin stalk Focal adjacent wall thickening [...] - Size - 4 mm Morphology: Pedunculated nzcy-zn-qps-wall or thin stalk Focal adjacent wall thickening >4mm: not present Polyp # 2 - Size - 4 mm Morphology: Pedunculated hjpe-uq-ykx-wall or thin stalk Focal adjacent wall thickening [...] ( e 7 mm) - Surgical consult. https://pubs.rsna.org/doi/abs/10.1148/radiol.231116. CRITICAL RESULT: No. COMMUNICATION: Per this written [...] 2 Antibody/Antigen Screen (04/30/2024 12:49 PM EST) [facility] HIV 1 & 2 Antibody/Antigen Screen Non Reactive Non Reactive 04/30/2024 2:08 PM EST [facility] Comment:Screening for HIV 1 & 2 antibodies, and P24 antigen is NONREACTIVE. No confirmatory testing is required. Blood Venous blood specimen / Unknown Venipuncture / Unknown 04/30/2024 12:49 PM EST 04/30/2024 1:26 PM EST Mk Pastrana MD LAB BLOOD ORDERABLES Final Re sult [facility] [address] [place] [address] * (ABNORMAL) Hepatitis C antibody (04/30/2024 12:49 PM EST) Pathologist [facility] Hepatitis C Antibody Positive( A) Negative 04/30/2024 2:16 PM EST [facility] Comment:This specimen is heidi ng sent for confirmation by RT-PCR. Blood Venous blood specimen / Unknown Venipuncture / Unknown 04/30/2024 12:49 PM EST 04/30/2024 1:27 PM EST us Mk Pastrana MD LAB BLOOD ORDERABLES Final Re sult [facility] [address] [place] [address] from Last 3 Months or Most Recently Relevant to Health Maintenance Insurance [facility] [employer] [facility] MEDICAID MEDICAID [facility] DENTAQUEST [facility] [employer] [facility] MEDICAID Care Teams Bioinformatics Analyst Relationship Specialty Start Date End Date Willi Frost MD [address] [facility] [address] [place] [address] PCP - General 06/11/24
--- OUTSIDE RECORDS SUMMARY | 2024-11-20 14:51 | XMS_ITS | Encounter Summary ---
Author Organization [facility] Address [address] [place] [address] Care Team Providers Care Primary School Principal Name Role Phone Willi Frost MD Primary Care Provider Encounter Details Date Type Department Care Team ([facility] Contact Info) Description 11/01/2024 Lab Requisition [facility] [address] [place] [phone] Dary Vincent, DIRECTOR SCRIPT 800 [facility] [address] [place] [phone] Acute myeloblastic leukemia, not having achieved remission [...] Hematology/BMT and Cellular Therapy Program [address] [place] [phone] 11/27/2024 11:30 AM EDT Office Visit [facility] Hematology/BMT and Cellular Therapy Program [address] [place] [address] Catrachita Dior PA 800 [facility] [address] [place] [address] 11/27/2024 1:30 PM EDT Clinical Support [facility] [address] [place] [phone] 12/04/2024 9:15 AM EDT Office Visit [facility] Adult Dentistry [address] [place] [address] Trinidad Emery, STEPHANIE [address] [place] [phone] 02/13/2025 3:00 PM EST Office Visit [facility] [address] [place] [phone] Verena Montes PA [address] [facility] [address] [place] [address] documented as of this encounter [...] Donor (RESEARCH ONLY) (10/29/2024 8:00 AM EDT) Blood Venous blood specimen / Unknown 10/29/2024 8:00 AM EDT 11/01/2024 3:15 PM EDT us Dary Vincent DIRECTOR SCRIPT LAB BLOOD ORDERABLES Final Result [facility] [address] [place] [address], * HLA Typing, Donor (HLATWD) (10/29/2024 8:00 AM EDT) HLA Lab Only (HLA Lab Only) 10/29/2024 8:00 AM EDT 11/01/2024 3:15 PM EDT us Dary Vincent DIRECTOR SCRIPT LAB BLOOD ORDERABLES Final Result [facility] [address] documented in this encounter Visit Diagnoses Diagnosis Acute myeloblastic leukemia, 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
--- OUTSIDE RECORDS SUMMARY | 2024-11-20 14:51 | XMS_ITS | Encounter Summary ---
Author Organization [facility] Address [address] [place] [address] Care Team Providers Care Supervisor Vendor Quality Name Role Phone Willi Frost MD Primary Care Provider Encounter Details Date Type Department Care Team ([facility] Contact Info) Description 10/03/2024 Telephone [facility] Hematology/BMT and Cellular Therapy Program [address] [place] [phone] Oralia Liu RN [facility] Social History Tobacco Use [...] Care Team ([facility] Contact Info) Description 11/27/2024 11:00 AM EDT Clinical Support [facility] Hematology/BMT and Cellular Therapy Program [address] [phone] 11/27/2024 11:30 AM EDT Office Visit [facility] Hematology/BMT and Cellular Therapy Program [address] [phone] Catrachita Dior PA 800 [facility] [address] [place] [address] 11/27/2024 1:30 PM EDT Clinical Support [place] [address] [place] [phone] 12/04/2024 9:15 AM EDT [facility] [address] [place], [place] [phone] Trinidad Emery, STEPHANIE [address] [place] [address] 02/13/2025 3:00 PM EST Office Visit [address] [phone] [place] [address] [place] [address] [address] [place] [address] documented as of this encounter Visit Diagnoses Not on filedocumented in this encounter Additional Health Concerns Assessment Noted Time A Body Mass Index follow-up plan has been documented for the patient 09/11/2024 6:12 PM EDT documented as of this encounter Care Teams Supervisor Vendor Quality Relationship Specialty Start Date End Date Willi Frost MD [facility] [address] [facility] [address] [place] [address] PCP - General 06/11/24 documented as of this encounter
--- OUTSIDE RECORDS SUMMARY | 2024-11-20 14:51 | XMS_ITS | Encounter Summary ---
Author Organization [facility] Address [address] [place] [address] Care Team Providers Care Advanced Practice Registered Nurse Name Role Phone Willi Frost MD Primary Care Provider Encounter Details Date Type Department Care Team (Late st Contact Info) Description 11/18/2024 Telephone [facility] [address] [place] [phone] None, None [address] [place] [address] Social History Tobacco Use Types Packs/Day Years [...] encounter Miscellaneous Notes * Telephone Encounter - Talon Chowdhury - 11/18/2024 10:03 AM EDT patient wanting dentures, transferred to DMD clinic. current only pros. documented in this encounter Plan of Treatment Upcoming Encounters Date Type Department Care Team (Late st Contact Info) Description 11/27/2024 11:00 AM EDT Clinical Support [facility] Hematology/BMT and Cellular Therapy Program [address] [place] [phone] 11/27/2024 11:30 AM EDT Office Visit [facility] Hematology/BMT and Cellular Therapy Program [address] [place] [address] Catrachita Dior PA 800 [facility] [address] [place] [address] 11/27/2024 1:30 PM EDT Clinical Support [address] [phone] 12/04/2024 9:15 AM EDT Office Visit [facility] Adult Dentistry [address] [place], [place] [phone] Trinidad Emery DMD 800 [place], [place] [phone] 02/13/2025 3:00 PM EST Office Visit [address] [phone] Verena Montes PA 3101 [facility] 100 [place] [phone] documented as of this encounter Visit Diagnoses [...] documented as of this encounter Care Teams Advanced Practice Registered Nurse Relationship Specialty Start Date End Date Willi Frost MD [address] [place] [address] [address] [place] [address] PCP - General 06/11/24 documented as of this encounter
--- OUTSIDE RECORDS SUMMARY | 2024-11-20 14:51 | XMS_ITS | Encounter Summary ---
Author Organization [facility] Address [address] [place] [address] Care Team Providers Care Butcher'S Assistant Name Role Phone Willi Frost MD [...] Hematology/BMT and Cellular Therapy Program [address] [phone] 11/27/2024 11:30 AM EDT Office Visit [facility] Hematology/BMT and Cellular Therapy Program [address] [phone] Catrachita Dior PA 800 [facility] [address] [place] [phone] 11/27/2024 1:30 PM EDT Clinical Support [facility] [address] [place] [phone] 12/04/2024 9:15 AM EDT Office Visit [facility] Adult Dentistry [address] [place] [address] Trinidad Emery, DMD [address] [place], [place] [phone] 02/13/2025 3:00 PM EST Office Visit [facility] [address] [place] [phone] Verena Montes PA 3101 [facility] 100 [place] [phone] documented as of this encounter Visit Diagnoses Not on filedocumented in this encounter Additional Health Concerns Assessment Noted Time A Body Mass Index follow-up plan has been documented for the patient 09/11/2024 6:12 PM EDT documented as of this encounter Care Teams Butcher'S Assistant Relationship Specialty Start Date End Date Willi Frost MD [address] [place] [address] [address] [place] [address] PCP - General 06/11/24 documented as of this encounter
--- OUTSIDE RECORDS SUMMARY | 2024-11-20 14:51 | XMS_ITS | Encounter Summary ---
Author Organization [facility] Address [address] [place] [address] Care Team Providers Care Wildlife Biology Technician Name Role Phone Willi Frost MD [...] Hematology/BMT and Cellular Therapy Program [address] [phone] 11/27/2024 11:30 AM EDT Office Visit [facility] Hematology/BMT and Cellular Therapy Program [address] [phone] Catrachita Dior PA 800 [facility] [address] [place] [phone] 11/27/2024 1:30 PM EDT Clinical Support [facility] [address] [place] [phone] 12/04/2024 9:15 AM EDT Office Visit [facility] Adult Dentistry [address] [place] [address] Trinidad Emery, DMD [address] [place], [place] [phone] 02/13/2025 3:00 PM EST Office Visit [facility] [address] [place] [phone] Verena Montes PA 3101 [facility] 100 [place] [phone] documented as of this encounter Visit Diagnoses Not on filedocumented in this encounter Additional Health Concerns Assessment Noted Time A Body Mass Index follow-up plan has been documented for the patient 09/11/2024 6:12 PM EDT documented as of this encounter Care Teams Wildlife Biology Technician Relationship Specialty Start Date End Date Willi Frost MD [address] [place] [address] [address] [place] [address] PCP - General 06/11/24 documented as of this encounter
--- OUTSIDE RECORDS SUMMARY | 2024-11-20 14:51 | XMS_ITS | Encounter Summary ---
Author Organization [facility] Address [address] [place] [address] Care Team Providers Care Procurement Buyer Name Role Phone Willi Frost MD Primary Care Provider [phone] Encounter Details Date Type Department Care Team (Late Contact Info) Description 11/14/2024 Lab Requisition [facility] 800 [place] [address] Mk Pastrana MD 800 [facility] 1st [place] [address] Chronic myeloid leukemia, BCR/ABL-positive, not [...] and Cellular Therapy Program 750 [facility] [place] [phone] 11/27/2024 11:30 AM EDT Office Visit [facility] Hematology/BMT and Cellular Therapy Program 750 [facility], 1st [place]r [place] [address] Catrachita Dior PA 800 [facility] 1st [place] [address] 11/27/2024 1:30 PM EDT Clinical Support [facility] 3101 [place] [phone] 12/04/2024 9:15 AM EDT Office Visit [facility] Adult Dentistry [address] 2nd [address] [place], [place] [phone] Trinidad Emery DMD 800 [place] [address] 02/13/2025 3:00 PM EST Office Visit [address] [phone] [place] [address] [place] [address] [address] [place] [address] documented as of this encounter Procedures Procedure Name Priority Date/Time Associated Diagnosis Comments [facility] AND CELL ACQUISITION Routine 10/16/2024 9:00 AM EDT Chronic myeloid leukemia, BCR/ABL-positive, 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) documented in this encounter Results * [facility] and Cell Acquisition (10/16/2024 9:00 AM EDT) Service [facility] Management of Unrelated Donor Search 11/14/2024 2:47 PM EDT [facility] Service Date: 10/16/2024 11/14/2024 2:47 PM EDT [facility] Invoice No.: [id number] 11/14/2024 2:47 PM EDT [facility] Grid Number [id number] 11/14/2024 2:47 PM EDT [facility] NMDP (NMDP Donor Search ) 10/16/2024 9:00 AM EDT 11/14/2024 1:43 PM EDT us Mk Pastrana MD LAB BLOOD ORDERABLES Final Re sult [facility] 800 [place] [address] documented in this encounter Visit Diagnoses Diagnosis Chronic myeloid leukemia, BCR/ABL-positive, 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) documented in this encounter Additional Health Concerns Assessment Noted Time A Body Mass Index follow-up plan has been documented for the patient 09/11/2024 6:12 PM EDT documented as of this encounter Care Teams Procurement Buyer Relationship Specialty Start Date End Date Willi Frost MD [address] [place] [address] PCP - General 06/11/24 documented as of this encounter
--- OUTSIDE RECORDS SUMMARY | 2024-11-20 14:51 | XMS_ITS | Encounter Summary ---
Author Organization [facility] Address [address] [place] [address] Care Team Providers Care Bar Tacker Sewing Machine Name Role Phone Willi Frost MD Primary Care Provider [phone] Encounter Details Date Type Department Care Team (Late st Contact Info) Description 11/13/2024 Lab Requisition [facility] H Lab 800 [place] [address] Mk Pastrana MD 800 [facility] [address] [place] [phone] Acute myeloblastic leukemia, not having achieved [...] Not at all 11/13/2024 12:49 PM EDT [place], [place] N Feeling down, depressed, or hopeless Not at [...] Not difficult at all 11/13/2024 12:49 PM EDT Luis Smith documented as of this encounter Plan of Treatment Upcoming Encounters Date Type Department Care Team (Late st Contact Info) Description 11/27/2024 11:00 AM EDT Clinical Support [facility] Hematology/BMT and Cellular Therapy Program 750 [address] , [address] [place] [address] [place] [address] 11/27/2024 11:30 AM EDT Office Visit [facility] Hematology/BMT and Cellular Therapy Program 750 [facility], 1st [place] [place] [address] Catrachita Dior PA 800 [address] [facility] 1st [place] [address] 11/27/2024 1:30 PM EDT Clinical Support [facility] [address]01 [place] [address] 12/04/2024 9:15 AM EDT Office Visit [facility] Adult Dentistry [address] 2nd [address] [place], [place] [phone] Trinidad Emery, STEPHANIE 800 [place], [place] [phone] 02/13/2025 3:00 PM EST Office Visit [facility] [address] [place] [phone] Verena Montes PA [address]01 [facility] [address] [place] [phone] documented as of this encounter Procedures Procedure Name Priority Date/Time Associated Diagnosis Comments [facility] DONOR SEARCH AND CELL ACQUISITION Routine 10/03/2024 9:00 AM EDT Acute myeloblastic leukemia, 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 Service Date: 10/03/2024 11/13/2024 5:[address] [facility] Invoice No.: [id number] 11/13/2024 5:[address] [facility] Grid Number [id number] 11/13/2024 5:[address] [facility] NMDP (NMDP Donor Search ) 10/03/2024 9:00 AM EDT 11/13/2024 5:06 PM EDT us Mk Pastrana MD LAB BLOOD ORDERABLES Final Re sult 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
--- OUTSIDE RECORDS SUMMARY | 2024-11-20 14:51 | XMS_ITS | Encounter Summary ---
Author Organization [facility] Address [address] [place] [address] Care Team Providers Care Junior Architect Name Role Phone Willi Frost MD Primary Care Provider Encounter Details Date Type Department Care Team (Late st Contact Info) Description 11/11/2024 Lab Requisition [facility] Blood Bank 800 [place] [address] Moises Estrada MD 800 [place] [address] General medical exam Social History Tobacco Use [...] Hematology/BMT and Cellular Therapy Program [address] [place] [address] 11/27/2024 11:30 AM EDT Office Visit [facility] Hematology/BMT and Cellular Therapy Program [address], [address] [place] [place] [address] Catrachita Dior PA 800 [facility] 1st [place] [address] 11/27/2024 1:30 PM EDT Clinical Support [facility] 3101 [place] [address] 12/04/2024 9:15 AM EDT [facility] [address] 2nd [place] [address] Trinidad Emery, STEPHANIE [address] [place] [phone] 02/13/2025 3:00 PM EST Office Visit [facility] [address] [place] [phone] Verena Montes PA 3101 [facility] [address] [place] [address] documented as of this encounter Procedures Procedure Name Priority Date/Time Associated Diagnosis Comments BILL ONLY ISOAGGLUTININ TITER Routine 10/29/2024 8:00 AM EDT General medical exam BILL ONLY TYPE & SCREEN Routine 10/30/19 8:00 AM EDT General medical exam documented in this encounter Results * Bill Only Type & Screen (10/29/2024 8:00 AM EDT) Blood Bank Lab Only (Blood Bank Lab Only) 10/29/2024 8:00 AM EDT 11/11/2024 9:40 AM EDT us Moises Estrada MD LAB BLOOD BANK TEST ORDERAB LES Final Result BLOOD BANK [address] * Bill Only Isoagglutinin Titer (10/29/2024 8:00 AM EDT) Blood Bank Lab Only (Blood Bank Lab Only) 10/29/2024 8:00 AM EDT 11/11/2024 9:40 AM EDT us Moises Estrada MD LAB BLOOD BANK TEST ORDERAB LES Final Result BLOOD BANK [address] documented in this encounter Visit Diagnoses Diagnosis General medical exam Unspecified general medical examination documented in this encounter Additional Health Concerns Assessment Noted Time A Body Mass Index follow-up plan has been documented for the patient 09/11/2024 6:12 PM EDT documented as of this encounter Care Teams Junior Architect Relationship Specialty Start Date End Date Willi Frost MD [address] [place] [address] PCP - General 06/11/24 documented as of this encounter
--- OUTSIDE RECORDS SUMMARY | 2024-11-20 14:51 | XMS_ITS | Encounter Summary ---
Author Organization [facility] Address [address] [place] [address] Care Team Providers Care Drill Press Operator Numerical Control Name Role Phone Willi Frots MD Primary Care Provider Encounter Details Date Type Department Care Team (Late st Contact Info) Description 11/11/2024 Telephone [facility] Hematology/BMT and Cellular Therapy Program [address] [phone] Mk Pastrana MD 800 [facility] [address] [place] [phone] Social History Tobacco Use Types Packs/Day Years [...] encounter Miscellaneous Notes * Telephone Encounter - Tony Ng - 11/11/2024 4:29 PM EDT Attempted to reach patient. Left VM informing patient of appt change on 11/27. documented in this encounter Plan of Treatment Upcoming Encounters Date Type Department Care Team (Late st Contact Info) Description 11/27/2024 11:00 AM EDT Clinical Support [facility] Hematology/BMT and Cellular Therapy Program [address] [place] [address] 11/27/2024 11:30 AM EDT Office Visit [facility] Hematology/BMT and Cellular Therapy Program 750 [facility] [place] [address] Catrachita Dior PA 800 [facility] [address] [place] [phone] 11/27/2024 1:30 PM EDT Clinical Support [address] [phone] 12/04/2024 9:15 AM EDT Office Visit [facility] [address] 2nd [address] [place], [place] [phone] Trinidad Emery, STEPHANIE 800 [place], [place] [phone] 02/13/2025 3:00 PM EST Office Visit [address] [phone] Verena Montes PA [address] [place] [address] 100 [place] [address] documented as of this encounter Visit Diagnoses Not on filedocumented in this encounter Additional Health Concerns Assessment Noted Time A fall risk assessment has been complete d for the patient 10/30/2024 8:42 AM EDT A Body Mass Index follow-up plan has been documented for the patient 09/11/2024 6:12 PM EDT documented as of this encounter Care Teams Drill Press Operator Numerical Control Relationship Specialty Start Date End Date Willi Frost MD [address] [place] [address] [address] [place] [phone] PCP - General 06/11/24 documented as of this encounter
--- OUTSIDE RECORDS SUMMARY | 2024-11-20 14:51 | XMS_ITS | Encounter Summary ---
Author Organization [facility] Address [address] [place] [address] Care Team Providers Care Utilization Review Coordinator Name Role Phone Willi Frost MD Primary Care Provider Encounter Details Date Type Department Care Team (Late Contact Info) Description 10/31/2024 Lab Requisition [facility] Blood Bank 800 [place] [address] Moises Estrada MD 800 [place] [address] General medical exam Social History Tobacco Use [...] Hematology/BMT and Cellular Therapy Program [address] [place] [phone] 11/27/2024 11:30 AM EDT Office Visit [facility] Hematology/BMT and Cellular Therapy Program [address] [place] [address] Catrachita Dior PA 800 [facility]tr 1st [place] [address] 11/27/2024 1:30 PM EDT Clinical Support [facility] [address] [place] [phone] 12/04/2024 9:15 AM EDT Office Visit [facility] [address] 2nd [place] [address] Trinidad Emery DMD 800 [place] [address] 02/13/2025 3:00 PM EST Office Visit [address] [phone] Verena Montes PA 3101 [facility] [address] [place] [phone] documented as of this encounter Procedures Procedure Name Priority Date/Time Associated Diagnosis Comments BILL ONLY ISOAGGLUTININ TITER Routine 10/25/2024 8:00 AM EDT General medical exam BILL ONLY TYPE & SCREEN Routine 10/26/19 8:00 AM EDT General medical exam documented in this encounter Results * Bill Only Isoagglutinin Titer (10/25/2024 8:00 AM EDT) Blood Bank Lab Only (Blood Bank Lab Only) 10/25/2024 8:00 AM EDT 10/31/2024 7:46 AM EDT us Moises Estrada MD LAB BLOOD BANK TEST ORDERAB LES Final Result BLOOD BANK [address] * Bill Only Type & Screen (10/25/2024 8:00 AM EDT) Blood Bank Lab Only (Blood Bank Lab Only) 10/25/2024 8:00 AM EDT 10/31/2024 7:46 AM EDT us Moises Estrada MD LAB BLOOD BANK TEST ORDERAB LES Final Result BLOOD BANK [address] documented in this encounter Visit Diagnoses Diagnosis General medical exam Unspecified general medical examination documented in this encounter Additional Health Concerns Assessment Noted Time A Body Mass Index follow-up plan has been documented for the patient 09/11/2024 6:12 PM EDT documented as of this encounter Care Teams Utilization Review Coordinator Relationship Specialty Start Date End Date Willi Frost MD [address] [place] [address] PCP - General 06/11/24 documented as of this encounter
--- OUTSIDE RECORDS SUMMARY | 2024-11-20 14:51 | XMS_ITS | Encounter Summary ---
Author Organization Address [address] [place] [address] Care Team Providers Care Director Of Payroll Name Role Phone Willi Frost MD Primary Care Provider Encounter Details Date Type Department Care Team (Late st Contact Info) Description 11/05/2024 Telephone [facility] [address] [place] [address] Cee Neely Social History Tobacco Use Types Packs/Day Years [...] encounter Miscellaneous Notes * Telephone Encounter - Cee Neely - 11/05/2024 10:38 AM EDT Specialty Medication First Follow-Up: The patient was contacted approximately 1 month after initiation of therapy. Patient initiated the following medication/strength (Iclusig 45mg) on the following date (10/15/2024). Are there any identified problems with medication administration or dosing? No The patient is adherent to therapy. Patient reports any side effects? No New Labs since initiation? No Therapy is appropriate for continuation. This assessment was based on communication with patient. The patient's medication list has been reviewed with the patient, is accurate and is reflected in the patient's chart. Summary: Spoke to patient and she started the Iclusig 45mg on 10-15-24. She is taking it appropriately and 1 missed dose. She did not report any side effects at this time. documented in this encounter Plan of Treatment Upcoming Encounters Date Type Department Care Team ([facility] st Contact Info) Description 11/27/2024 11:00 AM EDT Clinical Support [facility] Hematology/BMT and Cellular Therapy Program [address] [phone] 11/27/2024 11:30 AM EDT Office Visit [facility] Hematology/BMT and Cellular Therapy Program [address] [place] [phone] Catrachita Dior PA 800 [facility] [address] [place] [address] 11/27/2024 1:30 PM EDT Clinical Support [address] [phone] 12/04/2024 9:15 AM EDT Office Visit [facility] Adult Dentistry [address] 2nd [place] [address] Trinidad Emrey, STEPHANIE 800 [place], [place] [phone] 02/13/2025 3:00 PM EST Office Visit [address] [address] Verena Montes PA [address] [place] [phone] documented as of this encounter Visit Diagnoses Not on filedocumented in this encounter Additional Health Concerns Assessment Noted Time A fall risk assessment has been complete d for the patient 10/30/2024 8:42 AM EDT A Body Mass Index follow-up plan has been documented for the patient 09/11/2024 6:12 PM EDT documented as of this encounter Care Teams Director Of Payroll Relationship Specialty Start Date End Date Willi Frost MD 105 [facility] 1100 [place] [address] PCP - General 06/11/24 documented as of this encounter
--- OUTSIDE RECORDS SUMMARY | 2024-11-20 14:51 | XMS_ITS | Encounter Summary ---
Author Organization [facility] Address [address] [place] [address] Care Team Providers Care Hospital Admissions Officer Name Role Phone Willi Frost MD Primary Care Provider Encounter Details Date Type Department Care Team (Late st Contact Info) Description 10/30/2024 Lab Requisition [facility] H LAB 800 [place] [address] Dary Vincent, AGENCY OWNER 800 [facility] [address] [place] [phone] Chronic myeloid leukemia, BCR/ABL-positive, not having achieved [...] [facility] Contact Info) Description 11/27/2024 11:00 AM EDT Clinical Support [facility] Hematology/BMT and Cellular Therapy Program [address] [place] [phone] 11/27/2024 11:30 AM EDT Office Visit [facility] Hematology/BMT and Cellular Therapy Program [address] [place] [phone] Catrachita Dior, SALVADOR 800 [facility] Cancer [address] [address] 11/27/2024 1:30 PM EDT Clinical Support [address] [phone] 12/04/2024 9:15 AM EDT Office Visit [facility] [address]nd [place] [address] Trinidad Emery DMD 800 [place] [address] 02/13/2025 3:00 PM EST Office Visit [address] [phone] Verena Montes PA 3101 [facility] 100 [place] [address] documented as of this encounter [...] High [employer] NMDP Donor (RESEARCH ONLY) (10/25/2024 12:00 PM EDT) Blood Venous blood specimen / Unknown 10/25/2024 12:00 PM EDT 10/30/2024 3:36 PM EDT Dary Vincent AGENCY OWNER LAB BLOOD ORDERABLES Final Result Performing Organization Address [facility] de Phone Number [facility] 800 [place] [address], * HLA Typing, Donor (HLATWD) (10/25/2024 12:00 PM EDT) HLA Lab Only (HLA Lab Only) 10/25/2024 12:00 PM EDT 10/30/2024 3:36 PM EDT Dary Vincent AGENCY OWNER LAB BLOOD ORDERABLES Final Result Performing Organization Address [facility] de Phone Number [facility] [address] documented in this encounter Visit Diagnoses Diagnosis Chronic myeloid leukemia, BCR/ABL-positive, 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) documented in this encounter Additional Health Concerns Assessment Noted Time A Body Mass Index follow-up plan has been documented for the patient 09/11/2024 6:12 PM EDT documented as of this encounter Care Teams Hospital Admissions Officer Relationship Specialty Start Date End Date Wlili Frost MD [address] [facility] 1100 [place] [address] PCP - General 06/11/24 documented as of this encounter
--- OUTSIDE RECORDS SUMMARY | 2024-11-20 14:51 | XMS_ITS | Encounter Summary ---
Author Organization [facility] Address [address] [place] [address] Care Team Providers Care Appraisal Technician Name Role Phone Willi Frost MD Primary Care Provider Encounter Details Date Type Department Care Team (Late Contact Info) Description 10/14/2024 Lab Requisition [facility] A Blood Bank 800 [place] [address] Moises Estrada MD 800 [place] [address] General medical exam Social History Tobacco Use [...] CC Hematology/BMT and Cellular Therapy Program [address] [place] [phone] 11/27/2024 11:30 AM EDT Office Visit [facility] Hematology/BMT and Cellular Therapy Program [address] [place] [address] Catrachita Dior PA [address] [facility] [address] [place] [address] 11/27/2024 1:30 PM EDT Clinical Support [facility] [address] [place] [phone] 12/04/2024 9:15 AM EDT Office Visit [facility] [address] 2nd [place] [address] Trinidad Emery, STEPHANIE 800 [place] [address] 02/13/2025 3:00 PM EST Office Visit [address] [phone] Verena Montes PA [address] [facility] [address] [place] [phone] documented as of this encounter Procedures Procedure [...] ORDERAB LES Final Result BLOOD BANK 800 [place] [address], * Bill Only Isoagglutinin Titer (10/07/2024 10:00 AM EDT) Blood Bank Lab Only (Blood Bank Lab Only) 10/07/2024 10:00 AM EDT 10/14/2024 7:26 AM EDT us Moises Estrada MD LAB BLOOD BANK TEST ORDERAB LES Final Result BLOOD BANK [address] documented in this encounter Visit Diagnoses Diagnosis General medical exam Unspecified general medical examination documented in this encounter Additional Health Concerns Assessment Noted Time A Body Mass Index follow-up plan has been documented for the patient 09/11/2024 6:12 PM EDT documented as of this encounter Care Teams Appraisal Technician Relationship Specialty Start Date End Date Willi Frost MD [address] [place] [address] PCP - General 06/11/24 documented as of this encounter
--- OUTSIDE RECORDS SUMMARY | 2024-11-20 14:51 | XMS_ITS | Encounter Summary ---
Author Organization [facility] Address [address] [place] [address] Care Team Providers Care Manager Public Name Role Phone Willi Frost MD Primary Care Provider Encounter Details Date Type Department Care Team (Late st Contact Info) Description 11/13/2024 Lab Requisition [facility] 800 [place] [address] Mk Pastrana MD 800 [facility] [address] [place] [phone] Chronic myeloid leukemia, BCR/ABL-positive, not having [...] at all 11/13/2024 12:49 PM EDT Luis Smtih documented as of this encounter Plan of Treatment Upcoming Encounters Date Type Department Care Team (Late st Contact Info) Description 11/27/2024 11:00 AM EDT Clinical Support [facility] Hematology/BMT and Cellular Therapy Program 750 [facility], [address] [place] [address] [place] [address] 11/27/2024 11:30 AM EDT Office Visit [facility] Hematology/BMT and Cellular Therapy Program 750 [facility], [address] [place] [place] [address] Catrachita Dior PA 800 [facility] 1[address] [place] [address] 11/27/2024 1:30 PM EDT Clinical Support [facility] [address] [place] [phone] 12/04/2024 9:15 AM EDT Office Visit [facility] Adult [facility]istry [address]nd [address] [place], [place] [phone] Trinidad Emery, STEPHANIE 800 [place], [place] [phone] 02/13/2025 3:00 PM EST Office Visit [facility] [address] [place] [phone] Verena Montes PA [address] [facility] [address] [place] [address] documented as of this encounter Procedures Procedure Name Priority Date/Time Associated Diagnosis Comments [facility] DONOR SEARCH AND CELL ACQUISITION Routine 09/19/2024 9:00 AM EDT Chronic myeloid leukemia, BCR/ABL-positive, 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) documented in this encounter Results * [facility] Donor Search and Cell Acquisition (09/19/2024 9:00 AM EDT) Service [facility] Management of Unrelated Donor Search 11/13/2024 5:49 PM EDT [facility] Service Date: 09/19/2024 11/13/2024 5:49 PM EDT [facility] Invoice No.: [id number] 11/13/2024 5:49 PM EDT [facility] Grid Number [id number] 11/13/2024 5:49 PM EDT [facility] NMDP (NMDP Donor Search ) 09/19/2024 9:00 AM EDT 11/13/2024 5:03 PM EDT us Mk Pastrana MD LAB BLOOD ORDERABLES Final Re sult [facility] 800 [place] [address] documented in this encounter Visit Diagnoses Diagnosis Chronic myeloid leukemia, BCR/ABL-positive, 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) documented in this encounter Additional Health Concerns Assessment Noted Time A Body Mass Index follow-up plan has been documented for the patient 09/11/2024 6:12 PM EDT documented as of this encounter Care Teams Manager Public Relationship Specialty Start Date End Date Willi Frost MD [address] [place] [address] [address] [place] [address] PCP - General 06/11/24 documented as of this encounter
--- OUTSIDE RECORDS SUMMARY | 2024-11-20 14:51 | XMS_ITS | Encounter Summary ---
Author Organization [facility] Address [address] [place] [address] Care Team Providers Care Digital Content Coordinator Name Role Phone Willi Frost MD Primary Care Provider Encounter Details Date Type Department Care Team ([facility] Contact Info) Description 10/10/2024 Lab Requisition [facility] 800 [place] [phone] Dary Vincent, PUMPER HELPER [address] [facility] [address] [place] [phone] Acute myeloblastic leukemia, not having achieved [...] Hematology/BMT and Cellular Therapy Program [address] [place] [place] [phone] 11/27/2024 11:30 AM EDT Office Visit [facility] Hematology/BMT and Cellular Therapy Program [address] [place] [address] Catrachita Dior PA 800 [facility] 1[address] [place] [address] 11/27/2024 1:30 PM EDT Clinical Support [facility] [address] [place] [address] 12/04/2024 9:15 AM EDT Office Visit [facility] Adult [facility]istry [address] [place], [place] [phone] [place] Emery, STEPHANIE [address] [place] [phone] 02/13/2025 3:00 PM EST Office Visit [facility] [address] [place] [phone] Verena Montes PA 3101 [facility] [address] [place] [address] documented as of this encounter [...] 10/10/2024 3:24 PM EDT us Dary Vincent PUMPER HELPER LAB BLOOD ORDERABLES Final Result [facility] 800 [place] [address], * HLA Typing, Donor (HLATWD) (10/07/2024 10:00 AM EDT) HLA Lab Only (HLA Lab Only) 10/07/2024 10:00 AM EDT 10/10/2024 3:24 PM EDT us Dary Vincent PUMPER HELPER LAB BLOOD ORDERABLES Final Result [facility] [address] documented in this encounter Visit Diagnoses Diagnosis Acute myeloblastic leukemia, 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
--- OUTSIDE RECORDS SUMMARY | 2024-11-20 14:51 | XMS_ITS | Encounter Summary ---
Author Organization [facility] Address [address] [place] [address] Care Team Providers Care Bias Cutting Machine Operator Name Role Phone Willi Frost MD Primary Care Provider Encounter Details Date Type Department Care Team (Late Contact Info) Description 10/04/2024 Lab Requisition [facility] 800 [place] [address] Dary Vincent, SOCIAL WORK SUPERVISOR 800 [facility] [address] [place] [address] Chronic myeloid leukemia, BCR/ABL-positive, not [...] Saira , [address] [place] [phone] 11/27/2024 11:30 AM EDT Office Visit [facility] Hematology/BMT and Cellular Therapy Program 750 [facility], [address] [place] [address] Catrachita Dior PA 800 [facility] [address] [place] [address] 11/27/2024 1:30 PM EDT Clinical Support [facility] [address] [place] [address] 12/04/2024 9:15 AM EDT Office Visit [facility] Adult [facility] [address]nd [address] [place], [place] [phone] [place] Emery DMD 800 [place], [place] [phone] 02/13/2025 3:00 PM EST Office Visit [facility] [address] [place] [phone] Verena Montes PA [address] [facility] [address] [place] [address] documented as of this encounter [...] EDT 10/04/2024 12:41 PM EDT us Dary Vincent SOCIAL WORK SUPERVISOR LAB BLOOD ORDERABLES Final Result [facility] [address] * HLA Typing, Donor (HLATWD) (10/03/2024 11:46 AM EDT) HLA Lab Only (HLA Lab Only) 10/03/2024 11:46 AM EDT 10/04/2024 12:41 PM EDT us Dary Vincent APRN LAB BLOOD ORDERABLES Final Result Performing Organization Address City/State/[facility] Co de Phone Number [facility] [address] documented in this encounter Visit Diagnoses Diagnosis Chronic myeloid leukemia, BCR/ABL-positive, 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) documented in this encounter Additional Health Concerns Assessment Noted Time A Body Mass Index follow-up plan has been documented for the patient 09/11/2024 6:12 PM EDT documented as of this encounter Care Teams Bias Cutting Machine Operator Relationship Specialty Start Date End Date Willi Frost MD [address] [place] [address] 1100 [place] [address] PCP - General 06/11/24 documented as of this encounter
--- OUTSIDE RECORDS SUMMARY | 2024-11-20 14:51 | XMS_ITS | Encounter Summary ---
Author Organization [facility] Address [address] [place] [address] Care Team Providers Care Generator Operator Name Role Phone Willi Frost MD Primary Care Provider [phone] Encounter Details Date Type Department Care Team (Late Contact Info) Description 10/23/2024 Lab Requisition [facility] 800 [place] [address] Moises Estrada MD 800 [place] [address] General medical exam Social History Tobacco Use [...] Hematology/BMT and Cellular Therapy Program [address] [place] [phone] 11/27/2024 11:30 AM EDT Office Visit [facility] Hematology/BMT and Cellular Therapy Program [address] [place] [address] Catrachita Dior PA 800 [facility] 1st [place] [address] 11/27/2024 1:30 PM EDT Clinical Support [facility] [address] [place] [phone] 12/04/2024 9:15 AM EDT Office Visit [facility] [address] [place] [address] [place] Emery DMD 800 [place] [address] 02/13/2025 3:00 PM EST Office Visit [address] [phone] Verena Montes PA [address] [facility] [address] [place] [address] documented as of this encounter Procedures Procedure Name Priority Date/Time Associated Diagnosis Comments BILL ONLY ISOAGGLUTININ TITER Routine 10/16/2024 12:16 PM EDT General medical exam BILL ONLY TYPE & SCREEN Routine 10/17/19 12:16 PM EDT General medical exam documented in this encounter Results * Bill Only Type & Screen (10/16/2024 12:16 PM EDT) Blood Bank Lab Only (Blood Bank Lab Only) 10/16/2024 12:16 PM EDT 10/23/2024 8:11 AM EDT us Moises Estrada MD LAB BLOOD BANK TEST ORDERAB LES Final Result [facility] BANK 800 [place] [address], * Bill Only Isoagglutinin Titer (10/16/2024 12:16 PM EDT) [facility] Bank Lab Only (Blood Bank Lab Only) 10/16/2024 12:16 PM EDT 10/23/2024 8:11 AM EDT us Moises Estrada MD LAB BLOOD BANK TEST ORDERAB LES Final Result B[facility] BANK [address] documented in this encounter Visit Diagnoses Diagnosis General medical exam Unspecified general medical examination documented in this encounter Additional Health Concerns Assessment Noted Time A Body Mass Index follow-up plan has been documented for the patient 09/11/2024 6:12 PM EDT documented as of this encounter Care Teams Generator Operator Relationship Specialty Start Date End Date Willi Frost MD [address] [place] [address] PCP - General 06/11/24 documented as of this encounter
--- OUTSIDE RECORDS SUMMARY | 2024-11-20 14:51 | XMS_ITS | Encounter Summary ---
Author Organization [facility] Address [address] [place] [address] Care Team Providers Care Audio Visual Facilities Engineer Name Role Phone Willi Frost MD Primary Care Provider Encounter Details Date Type Department Care Team (Late Contact Info) Description 11/14/2024 Lab Requisition [facility] 800 [place] [address] Mk Pastrana MD 800 [facility] [address] [place] [address] Chronic myeloid leukemia, BCR/ABL-positive, not [...] CC Hematology/BMT and Cellular Therapy Program 750 [facility] [place] [phone] 11/27/2024 11:30 AM EDT Office Visit [facility] Hematology/BMT and Cellular Therapy Program 750 [facility], [address] [place] [address] Catrachita Dior PA 800 [facility] [address] [place] [address] 11/27/2024 1:30 PM EDT Clinical Support [facility] [address] [place] [phone] 12/04/2024 9:15 AM EDT Office Visit [facility] Adult Dentistry [address] [place], [place] [phone] [place] Emery DMD 800 [place] [address] 02/13/2025 3:00 PM EST Office Visit [address] [phone] [place] [address] [place] [address] [address] [place] [address] documented as of this encounter Procedures Procedure Name Priority Date/Time Associated Diagnosis Comments [facility] AND CELL ACQUISITION Routine 10/07/2024 9:00 AM EDT Chronic myeloid leukemia, BCR/ABL-positive, 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) documented in this encounter Results * [facility] Donor [facility] and Cell Acquisition (10/07/2024 9:00 AM EDT) Service [facility] Management of Unrelated Donor Search 11/14/2024 2:46 PM EDT [facility] Service Date: 10/07/2024 11/14/2024 2:46 PM EDT [facility] Invoice No.: [id number] 11/14/2024 2:46 PM EDT [facility] Grid Number [id number] 11/14/2024 2:46 PM EDT [facility] NMDP (NMDP Donor Search ) 10/07/2024 9:00 AM EDT 11/14/2024 1:41 PM EDT us Mk Pastrana MD LAB BLOOD ORDERABLES Final Re sult [facility] 800 [place] [address] documented in this encounter Visit Diagnoses Diagnosis Chronic myeloid leukemia, BCR/ABL-positive, 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) documented in this encounter Additional Health Concerns Assessment Noted Time A Body Mass Index follow-up plan has been documented for the patient 09/11/2024 6:12 PM EDT documented as of this encounter Care Teams Audio Visual Facilities Engineer Relationship Specialty Start Date End Date Willi Frost MD [address] [facility] [address] [place] [address] PCP - General 06/11/24 documented as of this encounter
--- OUTSIDE RECORDS SUMMARY | 2024-11-20 14:52 | XMS_ITS | Encounter Summary ---
Author Organization [facility] Address [address] [place] [address] Care Team Providers Care Endoscopic Technician Name Role Phone Willi Frost MD Primary Care Provider [phone] Reason for Visit * Reason Comments Transplant Evaluation Encounter Details Date Type Department Care Team (Late st Contact Info) Description 10/30/2024 Social Work Psych Oncology [address] [place] [address] [place] [address] Social History Tobacco Use Types Packs/Day Years [...] Clinician Note - Michelle Gamez LCSW - 10/30/2024 9:53 AM EDT Patient Name: Amita Ortiz Date: 10/31/24 Address: [address] [place] [phone] City: [place] Distance to : Date of : 1970 Place of : SSN: [id number] Patient Caregiver Phone Number: Extended Emergency Contact Information Primary Emergency Contact: Jade Arana [address]: [address] [place] [address] [place] Mobile Relation: Daughter Preferred language: Chadian Professor Of Environmental Science needed? No Relationship Status: Oncologist: Mk Pastrana MD Disease: AML Date of Initial Diagnosis: 06/2023 Adults in your support system who are available for caregiving: NAME RELATIONSHIP AGE ABILITY TO PROVIDE SUPPORT? Y/N Jade Arana Sister 38 Yes Economic, Physical, Emotional, and Transportation Mackenzie PECK 60 Yes Physical and Transportation Please tell me about the relationship between you and your primary caregiver: Patient will have primary caregiver support from her daughter Jade. The support is complex as daughter works full-time and needs to continue as she is sole income in the household. Patient's daughter currently accompanies her to all her appointments and makes arrangements with work as needed, and can commit to transportation needs but will need extra support in this area. Patient's daughter works 7:00am-3:00pm. Majority of patient's support will be late afternoon-overnight. TRANSPLANT INFORMATION Type of Transplant: Allogeneic Patient Education Level: Did not complete High School (completed up to 10th grade) History of any learning difficulties? Patient: Yes: [] No [x] Primary Caregiver Education Level: Graduated High School History of any learning difficulties? Primary Caregiver: Yes: [] No [x] PATIENT EMPLOYMENT Current job status of patient: Disabled Do you anticipate returning to work after transplant? 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 When/if able to, she would like to return to working. CAREGIVER EMPLOYMENT Current job status of caregiver: Employed Patient's daughter registered nurse cardiovascular icu at [employer]. FINANCIAL INFORMATION Pt Source(s) of income: Caregiver Source(s) of income: [] Employment [x] Employment [x] Social Security Disability [] Social Security Disability [] Social Security Snf [] Social Security Snf [] Supplement Security Income [] Supplement Security Income [] SNAP benefits [] SNAP benefits []FPL []TANF [] Other [] Child Support Any current concerns with housing? [] Yes [x] No Does patient/caregiver have reliable transportation? [x] Yes [] No While patient does have reliable transportation, it is complex. Patient has been compliant with alloutpatient appointments and relies on her daughter for transportation. Daily transportation needs post-allogenic transplant complicate this so their greatest need is transportation support. CONFIGURATION CONSULTANT explained option to utilize medicaid as option and patient was open to trialing this for RTC on 11/27. CONFIGURATION CONSULTANT explained possible barriers such as referral and vehicle in household, so trialing this earlier is recommended. In the event patient cannot use this, daughter can transport patient before and after work if necessary. INSURANCE Coverage Plan: Government Insurer: Self Insurance: Medicaid PRESCRIPTION COVERAGE: Deductibles and Premiums Does patient have prescription coverage? [x] Yes [] No MENTAL HEALTH PRESENTING COMPLAINT Problem and Associated Symptoms: Patient reports situational ups and downs in her mood as she jameson with diagnosis. She reports hx of psychotropic medications, but does not remember names. She ceased use of those at diagnosis and states they were not beneficial to her. Patient mentions she jameson through leaning on her family, staying optimistic, and cuddling with her pets. MENTAL STATUS EXAM Interaction Quality: Friendly and Cooperative Appearance: Neatly groomed and Appropriately dressed OBSERVED AFFECT: Appropriate REPORTED MOOD: Even PSYCHOMOTOR ACTIVITY: Normal ATTENTION/CONCENTRATION: Alert and Attentive ORIENTATION: Person, Place, Time, and Situation JUDGMENT/INSIGHT: Understands consequences of behavior and Understands nature of problems RELIABILITY: Reliable THOUGHT CONTENT/PROCESS: Clean and Coherent MEMORY: Recent and remote intact OTHER OBSERVATIONS: Maintains eye contact appropriately PERSONAL HISTORY Tobacco Use: Medium Risk (10/30/2024) Patient History Smoking Tobacco Use: Former Smokeless Tobacco Use: Never Passive Exposure: Not on file Patient reports current tobacco use of no more than two cigarettes/day. Prior to this, she lifelongsmoker and ceased used completely approximately 3 months ago. Transplant delay increased her stressand she has found herself smoking again. CONFIGURATION CONSULTANT brought up cessation options, but patient declined for now. She feels ceasing use and quitting cold turkey will work for her again. Counseling given: Not Answered Social History Substance and Sexual Activity Alcohol Use None Social History Substance and Sexual Activity Drug Use Not on file Substance Lifetime/ever Past year Past month Alcohol None at all outside of social occasions. None at all None at all Tobacco 1ppd Patient smoked up to 1ppd up until August 2024 No more than 2 cigarettes/day in past week Marijuana Daily (edibles) Daily (edibles) Daily (edibles) Prescription drugs None None None Other Patient endorsed use of cocaine in her 20s Patient with remote use of Methamphetamine from [id number]. She ceased use upon diagnosis. None SUICIDE RISK Current suicidal ideations/intentions/plans/attempt/or other self-injurious behaviors (explain): None Past history of suicidal ideations/intentions/plans/attempt/or other self- injurious behaviors (explain): None LEGAL HISTORY LEGAL PROBLEMS: No LEGAL PROBLEMS IDENTIFIED: Prior Issues Advanced Directive: None Guardianship of Minor Children? N/A RESOURCES AND SUPPORT Resource Comments: Patient and caregiver educated on practical and emotional supportive resources available to patient including Leukemia & Lymphoma Society, [employer], and Bone Marrow Foundation and Psych-Oncology services. Patient was also educated on lodging and transportation resources they are eligible for as they move towards CAR-T and/or transplant. PATIENT LIFESTYLE/COPING How did patient react when initially diagnosed? Patient reports initial shock and surprise at diagnosis, but has now come to point of acceptance ofeverything. What other interests/activities/hobbies are of interest to patient? Patient mentions spending time with her grandchildren, pets, and family. Is patient interested in [facility] services? [x] Yes [] No []Acupuncture []Art Therapy [] Office Machine Servicer [] Adolfo Gasca []Massage []Music Therapy [] Meditation []Narrative Medicine []Pet Therapy []Mohit Chi []Yoga Spirituality: Patient reports it's complicated right now and was open how cancer diagnosis has questioned her nemesio at times. Goals for patient Transplant: Patient reports a readiness to just move forward with everything. Narrative Assessment: CONFIGURATION CONSULTANT met with patient along with her daughter Jade to complete P/S evaluation as part of work-up for allogenic stem-cell transplant. Patient will have primary, but complex caregiver support from her daughter Jade. She is present during interview and has accompanied patient to all appointments and active support in her care. CONFIGURATION CONSULTANT has detailed disposition in caregiver and transportation section. Patient is able to articulate adequate understanding of transplant risks, benefits, and processes during interview. She affirms a readiness to move froward with everything in light of delay. CONFIGURATION CONSULTANT reaffirmed supportive, availability for resource coordination, and Psych-Oncology services available in the interim. While transportation post-transplant is complex, patients daughter has demonstrated commitment to getting her to appointments. Michelle Gamez LCSW [facility] PSYCH ONCOLOGY [address] [facility] [phone] documented in this encounter Plan of Treatment Upcoming Encounters Date Type Department Care Team ([facility] st Contact Info) Description 11/27/2024 11:00 AM EDT Clinical Support [facility] Hematology/BMT and Cellular Therapy Program [address] [place] [address] 11/27/2024 11:30 AM EDT Office Visit [facility] Hematology/BMT and Cellular Therapy Program [address] [phone] Catrachita Dior PA 800 [facility] Cancer Ctr [address] [place] [phone] 11/27/2024 1:30 PM EDT Clinical Support [facility] [address] [place] [phone] 12/04/2024 9:15 AM EDT Office Visit [facility] Adult Dentistry [address] [place], [place] [phone] Trinidad Emery, DMD [address] [place], [place] [phone] 02/13/2025 3:00 PM EST Office Visit [facility] [address] [place] [address] Verena Montes PA 3101 [facility] [address] [place] [phone] documented as of this encounter Visit Diagnoses Not on filedocumented in this encounter Additional Health Concerns Assessment Noted Time A fall risk assessment has been complete d for the patient 10/30/2024 8:42 AM EDT A Body Mass Index follow-up plan has been documented for the patient 09/11/2024 6:12 PM EDT documented as of this encounter Care Teams Endoscopic Technician Relationship Specialty Start Date End Date Willi Frost MD [address] [place] [address] [address] [place] [address] PCP - General 06/11/24 documented as of this encounter
--- OUTSIDE RECORDS SUMMARY | 2024-11-20 14:52 | XMS_ITS | Encounter Summary ---
Author Organization Healthcare Address [address] [place] [address] Care Team Providers Care Forestry Foreman Name Role Phone Pcp, No Primary Care Provider Willi Mckeon MD Primary Care Provider Encounter Details Date Type Department Care Team (Late Contact Info) Description 2024 Lab Requisition [facility] H [facility] [address] [place] [phone] Mk Pastrana MD 800 [facility]tr [address] [place] [phone] Chronic myeloid leukemia, BCR/ABL-positive, not having [...] CC Hematology/BMT and Cellular Therapy Program 750 [facility] [place] [address] 11/27/2024 11:30 AM EDT Office Visit [facility] Hematology/BMT and Cellular Therapy Program 750 [facility], [address] Flr [place] [address] Catrachita Dior PA 800 [facility] [address] [place] [address] 11/27/2024 1:30 PM EDT Clinical Support [facility] [address] [place] [phone] 12/04/2024 9:15 AM EDT Office Visit [facility] Adult Dentistry [address] [place], [place] [phone] Trinidad Emery, STEPHANIE [address] [place], [place] [phone] 02/13/2025 3:00 PM EST Office Visit [facility] [address] [place] [phone] [place] [address] [place] [address] [address] [place] [address] documented as of this encounter Procedures Procedure Name Priority Date/Time Associated Diagnosis Comments BONE MARROW EXAM CONSULT Routine 2024 12:48 PM EST Chronic myeloid leukemia, BCR/ABL-positive, 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) documented in this encounter Results * Bone marrow exam consult (2024 12:48 PM EST) Case Report Bone Marrow Case: [id number] Authorizing Provider: Mk Pastrana MD Collected: 2024 1248 Ordering Location: [facility] Lab Received: 2024 1248 Pathologist: Stewart Lombardi MD Specimen: Bone Marrow Aspirate, [id number] 05/06/2024 10:30 AM EST [facility] Final Diagnosis BONE MARROW ASPIRATE AND BIOPSY (CASE COLLECTED 02/13/2024): - VARIABLY HYPOCELLULAR BONE MARROW WITH DECREASED TRILINEAGE PRECURSORS (MOST NOTABLY MYELOID PRECURSORS), PATCHY 1+ RETICULIN FIBROSIS, MILD MEGAKARYOCYTIC ATYPIA, AND NO INCREASE IN BLASTS. 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 PCR was negative for mutations within the BCR-ABL1 kinase domain. 05/06/2024 10:30 AM [facility] Clinical Information C92.10 - Chronic myeloid leukemia, BCR/ABL-positive, not having achieved remission [ICD-10-CM] 05/06/2024 10:30 AM [facility] Bone Marrow Differential BONE MARROW DIFFERENTIAL: 200 cells Normal Patient Neutrophils 15-50 25 Metamyelocytes 4-19 5 Myelocytes 1-18 8 Promyelocytes 1-8 1 Blasts 0-2 0 Monocytes 0-5 3 Erythroid 16-38 45 Lymphocytes 3-24 11 Eosinophils 0-6 0 Basophils 0-2 0 Plasma cells 0-4 2 Other 05/06/2024 10:30 AM [facility] Aspirate Smear Aspirate smears are aspicular and paucicellular. Morphologic evaluation and differential is performed on touch preparation. 05/06/2024 10:30 AM [facility] Touch Imprints A touch preparation shows trilineage precursors. Myeloid precursors show complete maturation with no increase in blasts. Erythroid precursors show mild megaloblastoid change. Megakaryocytes are atypical, with some small forms having abnormal separation of nuclear lobes. 05/06/2024 10:30 AM [facility] Core Biopsy Core biopsy sections show patchy marrow cellularity (overall approximately 20%) with scattered foci of fibrosis. Cellular areas feature normally distributed trilineage precursors and cellular composition similar to touch preparation. No lymphoid aggregates are seen. A CD34 immunostain highlights microvasculature with no definite increase in blasts. 05/06/2024 10:30 AM [facility] Clot Section Clot sections are aspicular. They consist of predominantly blood. 05/06/2024 10:30 AM [facility] Flow Cytometry Interpretation Per report, flow cytometric analysis shows a hemodilute specimen with no immunophenotypic abnormalities. SY39-zikalott blasts constitute 0.1% of total events. 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 There are no other karyotypic abnormalities. Per report, molecular analysis showed no mutations within the BCR-ABL1 kinase domain. 05/06/2024 10:30 AM EST [facility] Gross Description [id number]. [id number] Received along with a corresponding pathology report from Pathology & Cytology Laboratory are 10 slides labeled outside case: [id number] collected on 02/13/2024. 05/06/2024 10:30 AM EST [facility] Note: A resident was involved in the service. I attest I examined the relevant preparations for the specimens and confirmed the diagnosis or interpretation. 05/06/2024 10:30 AM EST [facility] Bone Marrow Specimen from bone marrow obtained by aspiration / Unknown 2024 12:48 PM EST 2024 12:48 PM EST us Mk Pastrana MD LAB PATHOLOGY ORDERABLES Nani smith Result [facility] [address] [place] [address] documented in this encounter Visit Diagnoses Diagnosis Chronic myeloid leukemia, BCR/ABL-positive, 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) documented in this encounter Care Teams Forestry Foreman Relationship Specialty Start Date End Date Pcp, No [address] [place] [address] PCP - General Family Medicine 04/30/24 06/10/24 Willi Frost MD [facility] [address] [place] [address] PCP - General 06/11/24 documented as of this encounter
--- OUTSIDE RECORDS SUMMARY | 2024-11-20 14:52 | XMS_ITS | Encounter Summary ---
Author Organization [facility] Address [address] [place] [address] Care Team Providers Care Qc Manager Name Role Phone Willi Frost MD Primary Care Provider [phone] Encounter Details Date Type Department Care Team (Late st Contact Info) Description 10/14/2024 Telephone [facility] Hematology/BMT and Cellular Therapy Program [address] [phone] Mk Pastrana MD 800 [facility]tr [address] [place] [phone] Social History Tobacco Use Types Packs/Day Years [...] Sims RN - 10/14/2024 9:02 AM EDT hospice care transitions coordinator called patient with update on plan of care. * Telephone Encounter - Michelle Sims RN - 10/14/2024 8:53 AM EDT RN returned call and reaching out to brokerage coordinator for update. * Telephone Encounter - Terry Jay - 10/14/2024 8:39 AM EDT Callback Number: [phone] Patient calling with concerns about her catheter documented in this encounter Plan of Treatment Upcoming Encounters Date Type Department Care Team ([facility] st Contact Info) Description 11/27/2024 11:00 AM EDT Clinical Support [facility] Hematology/BMT and Cellular Therapy Program [address] [place] [phone] 11/27/2024 11:30 AM EDT Office Visit [facility] Hematology/BMT and Cellular Therapy Program [address] [place] [phone] Catrachita Dior PA 800 [facility] Cancer [address] [address] 11/27/2024 1:30 PM EDT Clinical Support [address] [phone] 12/04/2024 9:15 AM EDT Office Visit [facility] Adult Dentistry [address] [place], [place] [phone] Trinidad Emery, DMD [address] [place] [address] 02/13/2025 3:00 PM EST Office Visit [address] [phone] Verena Montes PA [address] [place] [address] [address] [place] [address] documented as of this encounter Visit Diagnoses Not on filedocumented in this encounter Additional Health Concerns Assessment Noted Time A Body Mass Index follow-up plan has been documented for the patient 09/11/2024 6:12 PM EDT documented as of this encounter Care Teams Qc Manager Relationship Specialty Start Date End Date Willi Frost MD [address] [place] [address] PCP - General 06/11/24 documented as of this encounter
--- OUTSIDE RECORDS SUMMARY | 2024-11-20 14:52 | XMS_ITS | Encounter Summary ---
Author Organization [facility] Address [address] [place] [address] Care Team Providers Care Production Cloth Cutter Name Role Phone Willi Frost MD Primary Care Provider Encounter Details Date Type Department Care Team (Late Contact Info) Description 08/13/2024 Lab Requisition [facility] H Lab [address] [place] [address] Mk Pastrana MD 800 [facility] [address] [place] [phone] Chronic myeloid leukemia, BCR/ABL-positive, not having [...] CC Hematology/BMT and Cellular Therapy Program 750 [facility] [place] [address] 11/27/2024 11:30 AM EDT Office Visit [facility] Hematology/BMT and Cellular Therapy Program 750 [facility] [address] [place] [address] Catrachita Dior PA 800 [facility]tr [address] [place] [address] 11/27/2024 1:30 PM EDT Clinical Support [facility] [address] [place] [address] 12/04/2024 9:15 AM EDT Office Visit [facility] Adult Dentistry [address] [place], [place] [phone] Trinidad Emery DMD [address] [place], [place] [phone] 02/13/2025 3:00 PM EST Office Visit [facility] [address] [place] [phone] Verena Montes PA [address] [facility] [address] [place] [phone] documented as of this encounter Procedures Procedure Name Priority Date/Time Associated Diagnosis Comments [facility] DONOR SEARCH AND CELL ACQUISITION Routine 06/24/2024 9:00 AM EDT Chronic myeloid leukemia, BCR/ABL-positive, 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) documented in this encounter Results * [facility] Donor Search and Cell Acquisition (06/24/2024 9:00 AM EDT) Service [facility] Management of Unrelated Donor Search 08/13/2024 10:02 PM EDT [facility] Service Date: 06/24/2024 08/13/2024 10:02 PM EDT [facility] Invoice No.: [id number] 08/13/2024 10:02 PM EDT [facility] Grid Number [id number] 08/13/2024 10:02 PM EDT [facility] NMDP (NMDP Donor Search ) 06/24/2024 9:00 AM EDT 08/13/2024 9:59 PM EDT us Mk Pastrana MD LAB BLOOD ORDERABLES Final Re sult [facility] [address] [place] [address] documented in this encounter Visit Diagnoses Diagnosis Chronic myeloid leukemia, BCR/ABL-positive, 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) documented in this encounter Care Teams Production Cloth Cutter Relationship Specialty Start Date End Date Willi Frost MD [address] [place] [address] PCP - General 06/11/24 documented as of this encounter
--- OUTSIDE RECORDS SUMMARY | 2024-11-20 14:52 | XMS_ITS | Encounter Summary ---
Author Organization [facility] Address [address] [place] [address] Care Team Providers Care Assurance Officer Name Role Phone Willi Frost MD Primary Care Provider [phone] Encounter Details Date Type Department Care Team (Latest Contact Info) Description 10/30/2024 Travel Social History Tobacco Use Types Packs/Day [...] Author No Risk Indicated 10/30/2024 8:42 AM Tracee Nova * Question Answer Date of Assessment Author 1. Wish to be (Past 1 Month) No 025 8:42 AM EDT Tracee Jonas 2. Non-Specific Active Suici yonatan Thoughts (Past 1 Month) No 10/30/2024 8:42 AM EDT Tracee Jonas 6. Suicidal Behavior (Lifetime) No 8:42 AM EDT Tracee Jonas documented as of this encounter Plan of Treatment Upcoming Encounters Date Type Department Care Team ([facility] st Contact Info) Description 11/27/2024 11:00 AM EDT Clinical Support [facility] Hematology/BMT and Cellular Therapy Program [address] [place] [phone] 11/27/2024 11:30 AM EDT Office Visit [facility] Hematology/BMT and Cellular Therapy Program [address] [place] [phone] Catrachita Dior PA [address] [facility] [address] [address] 11/27/2024 1:30 PM EDT Clinical Support [address] [address] 12/04/2024 9:15 AM EDT Office Visit [facility] [address] 2nd Floor [place], [place] [phone] [place] Emery, DMD 800 [place], [place] [phone] 02/13/2025 3:00 PM EST Office Visit [address] [address] Verena Montes PA [address] [place] [address] 100 [place] [address] documented as of this encounter Visit Diagnoses Not on filedocumented in this encounter Additional Health Concerns Assessment Noted Time A fall risk assessment has been complete d for the patient 10/30/2024 8:42 AM EDT A Body Mass Index follow-up plan has been documented for the patient 09/11/2024 6:12 PM EDT documented as of this encounter Care Teams Assurance Officer Relationship Specialty Start Date End Date Willi Frost MD [address] [place] [address] 1100 [place] [address] PCP - General 06/11/24 documented as of this encounter
--- OUTSIDE RECORDS SUMMARY | 2024-11-20 14:52 | XMS_ITS | Encounter Summary ---
Author Organization [facility] Address [address] [place] [address] Care Team Providers Care Finnish Rubber Name Role Phone Willi Frost MD Primary Care Provider Encounter Details Date Type Department Care Team (Late Contact Info) Description 06/26/2024 Lab Requisition [facility] Blood Bank 800 [place] [address] Moises Estrada MD 800 [place] [address] General medical exam Social History Tobacco Use [...] Hematology/BMT and Cellular Therapy Program [address] [place] [phone] 11/27/2024 11:30 AM EDT Office Visit [facility] Hematology/BMT and Cellular Therapy Program [address] [place] [address] Catrachita Dior PA 800 [facility] 1st [place] [address] 11/27/2024 1:30 PM EDT Clinical Support [facility] [address] [place] [phone] 12/04/2024 9:15 AM EDT Office Visit [facility] [address] 2nd [place] [address] [place] Emery DMD [address] [place] [phone] 02/13/2025 3:00 PM EST Office Visit [address] [phone] Verena Montes PA [address] [facility] [address] [place] [address] documented as of this encounter Procedures Procedure [...] ORDERAB LES Final Result BLOOD BANK 800 [place] [address], * Bill Only Isoagglutinin Titer (06/24/2024 11:26 AM EDT) Blood Bank Lab Only (Blood Bank Lab Only) 06/24/2024 11:26 AM EDT 06/26/2024 8:52 AM EDT us Moises Estrada MD LAB BLOOD BANK TEST ORDERAB LES Final Result Performing Organization Address City/[facility] Co de Phone Number BLOOD BANK 800 [place] [address], * Bill Only Isoagglutinin Titer (06/24/2024 11:26 AM EDT) Blood Bank Lab Only (Blood Bank Lab Only) 06/24/2024 11:26 AM EDT 06/26/2024 8:52 AM EDT us Moises Estrada MD LAB BLOOD BANK TEST ORDERAB LES Final Result Performing Organization Address City/[facility] Co de Phone Number BLOOD BANK [address] [place] [address] documented in this encounter Visit Diagnoses Diagnosis General medical exam Unspecified general medical examination documented in this encounter Care Teams Finnish Rubber Relationship Specialty Start Date End Date Willi Frost MD [address] [place] [address] PCP - General 06/11/24 documented as of this encounter
--- OUTSIDE RECORDS SUMMARY | 2024-11-20 14:52 | XMS_ITS | Encounter Summary ---
Author Organization [facility] Address [address] [place] [address] Care Team Providers Care Membership Correspondent Name Role Phone Willi Frost MD Primary [...] Hematology/BMT and Cellular Therapy Program [address] [phone] 11/27/2024 11:30 AM EDT Office Visit [facility] Hematology/BMT and Cellular Therapy Program [address] [address] Catrachita Dior PA 800 [facility] [address] [place] [phone] 11/27/2024 1:30 PM EDT Clinical Support [facility] 3101 [place] [phone] 12/04/2024 9:15 AM EDT Office Visit [facility] Adult [facility]istry [address] 2nd [place] [address] [place] Emery, DMD [address] [place], [place] [phone] 02/13/2025 3:00 PM EST Office Visit [facility] 3101 [place] [phone] Verena Montes PA 3101 [facility] 100 [place] [phone] documented as of this encounter Visit Diagnoses Not on filedocumented in this encounter Additional Health Concerns Assessment Noted Time A Body Mass Index follow-up plan has been documented for the patient 09/11/2024 6:12 PM EDT documented as of this encounter Care Teams Membership Correspondent Relationship Specialty Start Date End Date Willi Frost MD [address] [place] [address] 1100 [place] [address] PCP - General 06/11/24 documented as of this encounter
--- OUTSIDE RECORDS SUMMARY | 2024-11-20 14:52 | XMS_ITS | Encounter Summary ---
Author Organization [facility] Address [address] [place] [address] Care Team Providers Care E Business Manager Name Role Phone Willi Frost MD [...] Hematology/BMT and Cellular Therapy Program [address] [address] 11/27/2024 11:30 AM EDT Office Visit [facility] Hematology/BMT and Cellular Therapy Program [address] [address] Catrachita Dior PA 800 [facility] [address] [place] [phone] 11/27/2024 1:30 PM EDT Clinical Support [facility] [address] [place] [phone] 12/04/2024 9:15 AM EDT Office Visit [facility] [address] 2nd [place] [address] [place] Emery, DMD [address] [place], [place] [phone] 02/13/2025 3:00 PM EST Office Visit [facility] [address] [place] [address] Verena Montes PA 3101 [facility] 100 [place] [phone] documented as of this encounter Visit Diagnoses Not on filedocumented in this encounter Additional Health Concerns Assessment Noted Time A Body Mass Index follow-up plan has been documented for the patient 09/11/2024 6:12 PM EDT documented as of this encounter Care Teams E Business Manager Relationship Specialty Start Date End Date Willi Frost MD [address] [place] [address] 1100 [place] [address] PCP - General 06/11/24 documented as of this encounter
--- OUTSIDE RECORDS SUMMARY | 2024-11-20 14:52 | XMS_ITS | Encounter Summary ---
Author Organization [facility] Address [address] [place] [address] Care Team Providers Care Technical Healthcare Consultant Name Role Phone Willi Frost MD Primary Care Provider [phone] Reason for Referral * Transplant (Routine) - Closed Specialty Diagnoses / Procedures Referred By Contac t Referred To Contact Blood and Marrow Transplant Diagnoses CML (chronic myelocytic leukemia) (CMS/HCC) Procedures BMT Authorization for Transplant Mk Pastrana MD 800 [facility] [address] [place] [phone] Phone: tel: fax: [facility] Hematology/BMT and Cellular Therapy Program [address] [address] Phone: tel: fax: Referral ID Status Reason Start Date Expiration Date Visits Re quested Visits Authorized [id number] Closed 09/25/2024 03/27/2026 1 1 Encounter Details Date Type Department Care Team ([facility] st Contact Info) Description 09/25/2024 Orders Only [facility] Hematology/BMT and Cellular Therapy Program [address] [phone] Leo De Souza, RN [facility] HEMATOLOGY PROGRAM CLINIC CML (chronic myelocytic [...] Upcoming Encounters Date Type Department Care Team ([facility] st Contact Info) Description 11/27/2024 11:00 AM EDT Clinical Support [facility] Hematology/BMT and Cellular Therapy Program [address] [place] [phone] 11/27/2024 11:30 AM EDT Office Visit [facility] Hematology/BMT and Cellular Therapy Program [address] [place] [phone] Catrachita Dior PA 800 [facility] [address] [place] [phone] 11/27/2024 1:30 PM EDT Clinical Support [address] [phone] 12/04/2024 9:15 AM EDT Office Visit [facility] [address] 2nd Floor [place], [place] [phone] [place] Emery, DMD 800 [place], [place] [phone] 02/13/2025 3:00 PM EST Office Visit [address] [address] Verena Montes PA [address] [place] [phone] documented as of this encounter Visit Diagnoses Diagnosis CML (chronic myelocytic leukemia) (CMS/HCC)- Primary Chronic myeloid leukemia, without mention of having achieved remission documented in this encounter Additional Health Concerns Assessment Noted Time A Body Mass Index follow-up plan has been documented for the patient 09/11/2024 6:12 PM EDT documented as of this encounter Care Teams Technical Healthcare Consultant Relationship Specialty Start Date End Date Willi Frost MD 105 [place] [address] PCP - General 06/11/24 documented as of this encounter
--- OUTSIDE RECORDS SUMMARY | 2024-11-20 14:52 | XMS_ITS ---
Author Organization [facility] Address [address] [place] [address] Care Team Providers Care Senior Net Architect Name Role Phone Willi Frost MD Primary Care Provider Active Problems Problem Noted Date Diagnosed Date Second hand smoke exposure 10/08/2024 CML (chronic myelocytic leukemia) 09/10/2024 Current Treatment and Therapy Plans HEM/BMT Blood Administration for Outpatient* Plan Start Date:09/10/2024 Plan Provider:Bhavana Bella APRN Linked Problems CML (chronic myelocytic leuk emia) ([facility]) Treatment Medications No medications scheduled. Past Treatment and Therapy Plans No past plan information found. 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
--- OUTSIDE RECORDS SUMMARY | 2024-11-20 14:52 | XMS_ITS | Encounter Summary ---
Author Organization [facility] Address [address] [place] [address] Care Team Providers Care Real Estate Associate Name Role Phone Willi Frost MD Primary Care Provider Encounter Details Date Type Department Care Team ([facility] Contact Info) Description 10/08/2024 Telephone [facility] A Interventional Radiology [address] [place] [phone] Radha Mary, RN CH-VASCULAR & INTERVENTIONAL RADIOLOGY [...] CC Hematology/BMT and Cellular Therapy Program [address] [phone] 11/27/2024 11:30 AM EDT Office Visit [facility] Hematology/BMT and Cellular Therapy Program [address] [phone] Catrachita Dior PA 800 [facility] [address] [place] [phone] 11/27/2024 1:30 PM EDT Clinical Support [address] [place] [phone] 12/04/2024 9:15 AM EDT Office Visit [facility] Adult Dentistry [address] 2nd [place] [address] [place] Emery, DMD 800 [place] [address] 02/13/2025 3:00 PM EST Office Visit [facility] 3101 [place] [phone] Verena Montes PA 3101 [facility] [address] [place] [address] documented as of this encounter Visit Diagnoses Not on filedocumented in this encounter Additional Health Concerns Assessment Noted Time A Body Mass Index follow-up plan has been documented for the patient 09/11/2024 6:12 PM EDT documented as of this encounter Care Teams Real Estate Associate Relationship Specialty Start Date End Date Willi Frost MD [address] [facility] 1100 [place] [address] PCP - General 06/11/24 documented as of this encounter
--- OUTSIDE RECORDS SUMMARY | 2024-11-20 14:52 | XMS_ITS | Encounter Summary ---
Author Organization [facility] Address [address] [place] [address] Care Team Providers Care Business Continuity Coordinator Name Role Phone Willi Frost MD Primary Care Provider [phone] Reason for Referral * Imaging (Routine) - Pending Review Specialty Diagnoses / Procedures Referred By Contac t Referred To Contact Radiology Diagnoses CML (chronic myelocytic leukemia) (CMS/HCC) Procedures IR Tunneled Central Venous Catheter Placement 5+ Years Consult to Interventional Radiology Mk Pastrana MD 800 [facility] [address] [place] [phone] Phone: tel: fax: Referral ID Status Reason Start Date Expiration Date V isits Requested Visits Authorized [id number] Pending Review 09/17/2024 03/19/2026 1 1 Encounter Details Date Type Department Care Team (Late st Contact Info) Description 09/17/2024 Orders Only [facility] Hematology/BMT and Cellular Therapy Program 750 [facility] [place] [address] Leo De Souza, RN [facility] HEMATOLOGY PROGRAM CLINIC CML (chronic [...] Upcoming Encounters Date Type Department Care Team ([facility] st Contact Info) Description 11/27/2024 11:00 AM EDT Clinical Support [facility] Hematology/BMT and Cellular Therapy Program [address] [phone] 11/27/2024 11:30 AM EDT Office Visit [facility] Hematology/BMT and Cellular Therapy Program [address] [address] Catrachita Dior PA 800 [facility] [address] [place] [phone] 11/27/2024 1:30 PM EDT Clinical Support [address] [phone] 12/04/2024 9:15 AM EDT Office Visit [facility] [address] 2nd [place] [address] [place] Emery, STEPHANIE 800 [place] [address] 02/13/2025 3:00 PM EST Office Visit [address] [address] Verena Montes PA [address] [place] [address] 100 [place] [phone] Scheduled Orders Name Type Priority Associated Diagnoses [...] as of this encounter Care Teams Business Continuity Coordinator Relationship Specialty Start Date End Date Willi Frost MD 105 [place] [address] PCP - General 06/11/24 documented as of this encounter
--- OUTSIDE RECORDS SUMMARY | 2024-11-20 14:52 | XMS_ITS | Encounter Summary ---
Author Organization [facility] Address [address] [place] [address] Care Team Providers Care Medical Sociologist Name Role Phone Willi Frost MD Primary Care Provider Encounter Details Date Type Department Care Team ([facility] Contact Info) Description 10/10/2024 Telephone [facility] Hematology/BMT and Cellular Therapy Program [address] [place] [address] Michelle Sims, RN [facility] HEMATOLOGY PROGRAM CLINIC Social History Tobacco [...] Upcoming Encounters Date Type Department Care Team ([facility] Contact Info) Description 11/27/2024 11:00 AM EDT Clinical Support [facility] Hematology/BMT and Cellular Therapy Program [address] [phone] 11/27/2024 11:30 AM EDT Office Visit [facility] Hematology/BMT and Cellular Therapy Program [address] [phone] Catrachita Dior PA 800 [facility] [address]st [place] [address] 11/27/2024 1:30 PM EDT Clinical Support [address] [place] [phone] 12/04/2024 9:15 AM EDT Office Visit [facility] [address] 2nd [address] [place], [place] [phone] [place] Emery, STEPHANIE 800 [place] [address] 02/13/2025 3:00 PM EST Office Visit [facility] [address] [place] [phone] [place] [address] [place] [address] [address] [place] [address] documented as of this encounter Visit Diagnoses Not on filedocumented in this encounter Additional Health Concerns Assessment Noted Time A Body Mass Index follow-up plan has been documented for the patient 09/11/2024 6:12 PM EDT documented as of this encounter Care Teams Medical Sociologist Relationship Specialty Start Date End Date Willi Frost MD [facility] [address] [facility] 1100 [place] [address] PCP - General 06/11/24 documented as of this encounter
--- OUTSIDE RECORDS SUMMARY | 2024-11-20 14:52 | XMS_ITS | Encounter Summary ---
Author Organization [facility] Address [address] [place] [address] Care Team Providers Care Project Engineer Chemicals Name Role Phone Willi Frost MD Primary Care Provider Encounter Details Date Type Department Care Team (Late st Contact Info) Description 11/13/2024 Lab Requisition [facility] H Lab 800 [place] [address] Mk Pastrana MD 800 [facility] [address] [place] [phone] Chronic myeloid leukemia, BCR/ABL-positive, not having [...] CC Hematology/BMT and Cellular Therapy Program 750 [facility], [address] [place] [address] [place] [address] 11/27/2024 11:30 AM EDT Office Visit [facility] Hematology/BMT and Cellular Therapy Program 750 [facility], [address] [place] [address] Catrachita Dior PA 800 [facility] 1st [place] [address] 11/27/2024 1:30 PM EDT Clinical Support [facility] 3101 [place] [phone] 12/04/2024 9:15 AM EDT Office Visit [facility] Adult Dentistry [address] 2nd [address] [place], [place] [phone] [place] Emery, STEPHANIE 800 [place], [place] [phone] 02/13/2025 3:00 PM EST Office Visit [facility] [address] [place] [phone] Verena Montes PA [address]01 [facility] [address] [place] [address] documented as of this encounter Procedures Procedure Name Priority Date/Time Associated Diagnosis Comments [facility] DONOR SEARCH AND CELL ACQUISITION Routine 09/18/2024 9:00 AM EDT Chronic myeloid leukemia, BCR/ABL-positive, 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) documented in this encounter Results * [facility] Donor Search and Cell Acquisition (09/18/2024 9:00 AM EDT) Service [facility] Management of Unrelated Donor Search 11/13/2024 5:50 PM EDT [facility] Service Date: 09/18/2024 11/13/2024 5:50 PM EDT [facility] Invoice No.: [id number] 11/13/2024 5:50 PM EDT [facility] Grid Number [id number] [id number] 11/13/2024 5:50 PM EDT [facility] NMDP (NMDP Donor Search ) 09/18/2024 9:00 AM EDT 11/13/2024 5:04 PM EDT us Mk Pastrana MD LAB BLOOD ORDERABLES Final Re sult [facility] 800 [place] [address] documented in this encounter Visit Diagnoses Diagnosis Chronic myeloid leukemia, BCR/ABL-positive, 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) documented in this encounter Additional Health Concerns Assessment Noted Time A Body Mass Index follow-up plan has been documented for the patient 09/11/2024 6:12 PM EDT documented as of this encounter Care Teams Project Engineer Chemicals Relationship Specialty Start Date End Date Willi Frost MD [address] [place] [address] 1100 [place] [address] PCP - General 06/11/24 documented as of this encounter
--- OUTSIDE RECORDS SUMMARY | 2024-11-20 14:52 | XMS_ITS | Encounter Summary ---
Author Organization [facility] Address [address] [place] [address] Care Team Providers Care Dry Mill Worker Name Role Phone Willi Frost MD Primary Care Provider Reason for Visit * Reason Onset Date Comments new start 10/08/2024 Encounter Details Date Type Department Care Team (Late st Contact Info) Description 10/08/2024 Telephone [facility] [address] [place] [address] Erwin Valentin PharmD new start Social History Tobacco Use [...] 0.92, therapy changing to address No [facility] Specialty Medication Initial Care Plan Amita Ortiz [...] Medication specific education provided: Patient educated by [facility] for Medication Regimen: Iclusig 45mg PO QD. [...] P atient and/or caregiver encouraged to contact [facility] with any questions or concerns. Monitoring Questions [...] in regards to specialty medication Medication Regimen: [id number] PO QD for diagnosis of CML. Patient [...] of the care plan: Yes Saskia Welch, VernellD 10/10/2024 4:42 PM [1] Patient Active Problem List Diagnosis CML (chronic myelocytic leukemia) ([facility]/HCC) Second hand smoke exposure documented in this encounter Plan of Treatment Upcoming Encounters Date Type Department Care Team (Late st Contact Info) Description 11/27/2024 11:00 AM EDT Clinical Support [facility] Hematology/BMT and Cellular Therapy Program [address] [place] [address] 11/27/2024 11:30 AM EDT Office Visit [facility] Hematology/BMT and Cellular Therapy Program [address] [place] [address] Catrachita Dior PA 800 [facility] 1st [place] [address] 11/27/2024 1:30 PM EDT Clinical Support [facility] [address]01 [place] [address] 12/04/2024 9:15 AM EDT Office Visit [facility] Adult Dentistry [address] 2nd [address] [place], [place] [phone] [place] Emery, STEPHANIE 800 [place], [place] [address] 02/13/2025 3:00 PM EST Office Visit [facility] [address] [place] [phone] Verena Montes PA 3101 [facility] [address] [place] [address] documented as of this encounter Visit Diagnoses Not on filedocumented in this encounter Additional Health Concerns Assessment Noted Time A Body Mass Index follow-up plan has been documented for the patient 09/11/2024 6:12 PM EDT documented as of this encounter Care Teams Dry Mill Worker Relationship Specialty Start Date End Date Willi Frost MD [address] [facility] 1100 [place] [address] PCP - General 06/11/24 documented as of this encounter
--- OUTSIDE RECORDS SUMMARY | 2024-11-20 14:52 | XMS_ITS | Encounter Summary ---
Author Organization [facility] Address [address] [place] [address] Care Team Providers Care Manager Law Name Role Phone Willi Frost MD Primary Care Provider Encounter Details Date Type Department Care Team (Late Contact Info) Description 09/25/2024 Telephone [facility] Hematology/BMT and Cellular Therapy Program [address] [place] [address] [place] [address] Tg Rodgers RN [facility] HEM[facility]OLOGY PROGRAM CLINIC Social History Tobacco Use [...] Hematology/BMT and Cellular Therapy Program [address] [place] [address] 11/27/2024 11:30 AM EDT Office Visit [facility] Hematology/BMT and Cellular Therapy Program 750 [facility], [address] [place] [address] Catrachita Dior PA 800 [facility] [address] [place] [phone] 11/27/2024 1:30 PM EDT Clinical Support [facility] [address] [place] [address] 12/04/2024 9:15 AM EDT Office Visit [facility] Adult Dentistry [address] 2nd Floor [place], [place] [phone] Trinidad Emery, STEPHANIE 800 [place], [place] [phone] 02/13/2025 3:00 PM EST Office Visit [facility] [address] [place] [address] Verena Montes PA 3101 [facility] 100 [place] [phone] documented as of this encounter Visit Diagnoses Not on filedocumented in this encounter Additional Health Concerns Assessment Noted Time A Body Mass Index follow-up plan has been documented for the patient 09/11/2024 6:12 PM EDT documented as of this encounter Care Teams Manager Law Relationship Specialty Start Date End Date Willi Frost MD [address] [place] [address] [facility] [address] [place] [address] PCP - General 06/11/24 documented as of this encounter
--- OUTSIDE RECORDS SUMMARY | 2024-11-20 14:52 | XMS_ITS | Encounter Summary ---
Author Organization [facility] Address [address] [place] [address] Care Team Providers Care Loan Specialist Name Role Phone Willi Frost MD Primary Care Provider Encounter Details Date Type Department Care Team (Late Contact Info) Description 11/14/2024 Lab Requisition [facility] [address] [place] [address] Mk Pastrana MD 800 [facility] [address] [place] [address] Chronic myeloid leukemia, BCR/ABL-positive, not [...] Therapy Program 750 [facility] [place] [place] [phone] 11/27/2024 11:30 AM EDT Office Visit [facility] Hematology/BMT and Cellular Therapy Program 750 [facility], [address] [place] [address] Catrachita Dior PA 800 [facility] [address] [place] [address] 11/27/2024 1:30 PM EDT Clinical Support [facility] [address] [place] [phone] 12/04/2024 9:15 AM EDT Office Visit [facility] Adult Dentistry [address] [place], [place] [phone] Trinidad Emery DMD 800 [place] [address] 02/13/2025 3:00 PM EST Office Visit [address] [phone] [place] [address] [place] [address] Rojas 100 [place] [address] documented as of this encounter Procedures Procedure Name Priority Date/Time Associated Diagnosis Comments [facility] DONOR SEARCH AND CELL ACQUISITION Routine 10/29/2024 9:00 AM EDT Chronic myeloid leukemia, BCR/ABL-positive, 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) documented in this encounter Results * [facility] Donor Search and Cell Acquisition (10/29/2024 9:00 AM EDT) Service [facility] Management of Unrelated Donor Search 11/14/2024 6:55 PM EDT [facility] Service Date: 10/29/2024 11/14/2024 6:55 PM EDT [facility] Invoice No.: [id number] 11/14/2024 6:55 PM EDT [facility] Grid Number [id number] 10/2024 6:55 PM EDT [facility] NMDP (NMDP Donor Search ) 10/29/2024 9:00 AM EDT 11/14/2024 5:46 PM EDT us Mk Pastrana MD LAB BLOOD ORDERABLES Final Re sult [facility] [address] [place] [address] documented in this encounter Visit Diagnoses Diagnosis Chronic myeloid leukemia, BCR/ABL-positive, 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) documented in this encounter Additional Health Concerns Assessment Noted Time A Body Mass Index follow-up plan has been documented for the patient 09/11/2024 6:12 PM EDT documented as of this encounter Care Teams Loan Specialist Relationship Specialty Start Date End Date Willi Frost MD [address] [facility] [address] [place] [address] PCP - General 06/11/24 documented as of this encounter
--- OUTSIDE RECORDS SUMMARY | 2024-11-20 14:52 | XMS_ITS | Encounter Summary ---
Author Organization [facility] Address [address] [place] [address] Care Team Providers Care Psychology Physician Name Role Phone Willi Frost MD Primary Care Provider [phone] Encounter Details Date Type Department Care Team [...] Hematology/BMT and Cellular Therapy Program [address] [phone] 11/27/2024 11:30 AM EDT Office Visit [facility] Hematology/BMT and Cellular Therapy Program [address] [phone] Catrachita Dior PA 800 [facility] [address] [place] [phone] 11/27/2024 1:30 PM EDT Clinical Support [facility] [address] [place] [phone] 12/04/2024 9:15 AM EDT Office Visit [facility] Adult [facility]istry [address] [place] [address] Trinidad Emery, DMD [address] [place], [place] [phone] 02/13/2025 3:00 PM EST Office Visit [facility] [address] [place] [phone] Verena Montes PA 3101 [facility] 100 [place] [phone] documented as of this encounter Visit Diagnoses Not on filedocumented in this encounter Additional Health Concerns Assessment Noted Time A Body Mass Index follow-up plan has been documented for the patient 09/11/2024 6:12 PM EDT documented as of this encounter Care Teams Psychology Physician Relationship Specialty Start Date End Date Willi Frost MD [address] [place] [address] [address] [place] [address] PCP - General 06/11/24 documented as of this encounter
--- OUTSIDE RECORDS SUMMARY | 2024-11-20 14:52 | XMS_ITS | Encounter Summary ---
Author Organization [facility] Address [address] [place] [address] Care Team Providers Care Pivot Maker Name Role Phone Willi Frost MD Primary Care Provider Reason for Visit * Reason Comments Transplant Evaluation Encounter Details Date Type Department Care Team ([facility] st Contact Info) Description 09/25/2024 Social Work Psych Oncology 800 [place] [address] [place] [address] Social History Tobacco Use Types Packs/Day Years [...] Visit Disease Status: Established Patient Clinic Location: [facility] Disease Type: Leukemia Disease Type Other: CML [...] assessment was not completed on this date. SIGNAL MAINTENANCE TECHNICIAN and patient's family met for 20 minutes [...] due to vehicle, override will be requested. SIGNAL MAINTENANCE TECHNICIAN explored if daughter could transport patient if necessary. Daughter shared thatwith her work schedule she could drop off her mother but pick-up would be after she gets of work ifnecessary. Further discussion of logistics will be discussed once P/S is rescheduled. Patient was also provided with [facility] patient grants work-sheet to complete and bring back on 10/03. She was also informed that Urgent Need Funds were applied for on this date and POI was provided. SIGNAL MAINTENANCE TECHNICIAN will upload via [employer] portal. SIGNAL MAINTENANCE TECHNICIAN to remain available for supportive needs as they arise. documented in this encounter Plan of Treatment Upcoming Encounters Date Type Department Care Team ([facility] Contact Info) Description 11/27/2024 11:00 AM EDT Clinical Support [facility] Hematology/BMT and Cellular Therapy Program [address] [place] [address] 11/27/2024 11:30 AM EDT Office Visit [facility] Hematology/BMT and Cellular Therapy Program [address] [place] [address] Catrachita Dior, SALVADOR 800 [facility] [address] [place] [phone] 11/27/2024 1:30 PM EDT Clinical Support [facility] [address] [place] [phone] 12/04/2024 9:15 AM EDT Office Visit [facility] Adult Dentistry [address] 2nd [address] [place], [place] [phone] Trinidad Emery, DMD 800 [place] [address] 02/13/2025 3:00 PM EST Office Visit [facility] [address] [place] [phone] Verena Montes PA 3101 [facility] [address] 100 [place] [address] documented as of this encounter Visit Diagnoses Not on filedocumented in this encounter Additional Health Concerns Assessment Noted Time A Body Mass Index follow-up plan has been documented for the patient 09/11/2024 6:12 PM EDT documented as of this encounter Care Teams Pivot Maker Relationship Specialty Start Date End Date Willi Frost MD [address] [place] [address] Path [facility] [address] [place] [address] PCP - General 06/11/24 documented as of this encounter
--- OUTSIDE RECORDS SUMMARY | 2024-11-20 14:52 | XMS_ITS | Encounter Summary ---
Author Organization [facility] Address [address] [place] [address] Care Team Providers Care Carbon Paste Mixer Operator Name Role Phone Willi Frost MD Primary Care Provider Encounter Details Date Type Department Care Team (Late Contact Info) Description 06/25/2024 Lab Requisition [facility] [address] [place] [address] Dary Vincent, GERONTOLOGICAL NURSE PRACTITIONER 800 [facility] [address] [place] [address] Chronic myeloid leukemia, BCR/ABL-positive, not [...] CC Hematology/BMT and Cellular Therapy Program 750 [facility], [address] [facility] [place] [phone] 11/27/2024 11:30 AM EDT Office Visit [facility] Hematology/BMT and Cellular Therapy Program 750 [facility], [address] [place] [address] Catrachita Dior PA 800 [facility] [address] [place] [address] 11/27/2024 1:30 PM EDT Clinical Support [facility] [address] [place] [address] 12/04/2024 9:15 AM EDT Office Visit [facility] Adult Dentistry [address] [place], [place] [phone] Trinidad Emery DMD 800 [place], [place] [phone] 02/13/2025 3:00 PM EST Office Visit [address] [phone] Verena Montes PA [address] [facility] [address] [place] [address] documented as of this encounter [...] EDT 06/25/2024 1:01 PM EDT us Dary Vincent GERONTOLOGICAL NURSE PRACTITIONER LAB BLOOD ORDERABLES Final Result [facility] [address] * HLA Typing, Donor (HLATWD) (06/24/2024 11:26 AM EDT) HLA Lab Only (HLA Lab Only) 06/24/2024 11:26 AM EDT 06/25/2024 1:01 PM EDT us Dary Vincent APRN LAB BLOOD ORDERABLES Final Result Performing Organization Address [facility] Co de Phone Number [facility] [address] documented in this encounter Visit Diagnoses Diagnosis Chronic myeloid leukemia, BCR/ABL-positive, 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) documented in this encounter Care Teams Carbon Paste Mixer Operator Relationship Specialty Start Date End Date Willi Frost MD [address] [place] [address] 1100 [place] [address] PCP - General 06/11/24 documented as of this encounter
--- OUTSIDE RECORDS SUMMARY | 2024-11-20 14:53 | XMS_ITS | Encounter Summary ---
Author Organization [facility] Address [address] [place] [address] Care Team Providers Care Supervisor [employer] Name Role Phone Willi Frost MD Primary Care Provider Reason for Visit * Reason Comments Resource Navigation Encounter Details Date Type Department Care Team ([facility] st Contact Info) Description 11/18/2024 Social Work Psych Oncology 800 [place] [address] [place] [address] Social History Tobacco Use Types Packs/Day Years [...] Clinician Note - Michelle Gamez LCSW - 11/18/2024 2:29 PM EDT Encounter Type: Phone Call Disease Status: Established Patient Clinic Location: [facility] Disease Type: Leukemia Services Provided: Transportation Assistance Education Provided: Transportation Community Referrals: Medicaid Transportation Program Intervention Level: 3 Units (1 unit = 15 minutes): 1 Narrative: CONTROL TECHNICIAN followed up with patient via phone regarding trial use of medicaid transportation discussed during last visit. CONTROL TECHNICIAN has scheduled transportation via [employer] on 11/27 and was informed that taxicab driver should will likely arrived between 9-10. She was provided with their contact information if she were to run into any issues and encouraged to call at . CONTROL TECHNICIAN to remain availablefor supportive needs as they arise. documented in this encounter Plan of Treatment Upcoming Encounters Date Type Department Care Team ([facility] st Contact Info) Description 11/27/2024 11:00 AM EDT Clinical Support [facility] Hematology/BMT and Cellular Therapy Program [address] [place] [phone] 11/27/2024 11:30 AM EDT Office Visit [facility] Hematology/BMT and Cellular Therapy Program [address] [place] [phone] Catrachita Dior PA 800 [facility] [address] [place] [phone] 11/27/2024 1:30 PM EDT Clinical Support [address] [phone] 12/04/2024 9:15 AM EDT [facility] [address]nd [place] [address] Trinidad Emery, STEPHANIE 800 [place] [address] 02/13/2025 3:00 PM EST Office Visit [address] [phone] Verena Montes PA [address] [place] [address] 100 [place] [phone] documented as of this encounter Visit Diagnoses [...] as of this encounter Care Teams Supervisor [employer] Relationship Specialty Start Date End Date Willi Frost MD [address] [place] [address] PCP - General 06/11/24 documented as of this encounter
--- OUTSIDE RECORDS SUMMARY | 2024-11-20 14:53 | XMS_ITS | Encounter Summary ---
Author Organization [facility] Address [address] [place] [address] Care Team Providers Care Seam Feller Name Role Phone Willi Frost MD Primary Care Provider Encounter Details Date Type Department Care Team (Latest Contact Info) Description 11/20/2024 Travel Social History Tobacco Use Types Packs/Day [...] Hematology/BMT and Cellular Therapy Program [address] [phone] 11/27/2024 11:30 AM EDT Office Visit [facility] Hematology/BMT and Cellular Therapy Program [address] [place] [address] Catrachita Dior, SALVADOR 800 [facility] [address] [place] [phone] 11/27/2024 1:30 PM EDT Clinical Support [facility] [address] [place] [address] 12/04/2024 9:15 AM EDT Office Visit [facility] Adult Dentistry [address] [place], [place] [phone] Trinidad Emery, DMD [address] [place] [phone] 02/13/2025 3:00 PM EST Office Visit [facility] [address] [place] [address] Verena Montes PA 3101 [facility] [address] [place] [address] documented as of this encounter [...] documented as of this encounter Care Teams Seam Feller Relationship Specialty Start Date End Date Willi Frost MD [address] [place] [address] 1100 [place] [address] PCP - General 06/11/24 documented as of this encounter
[2024-11-20 15:08] LABS: Hematocrit 37.1 % (37.0-47.0); Hemoglobin 12.2 g/dL (12.2-16.2); Immature Granulocytes % 0 %; Mean Corpuscular HGB Conc 32.9 g/dL (31.8-35.4); Mean Corpuscular Hemoglobin 31.4 pg (27.0-31.2); Mean Corpuscular Volume 95.6 fl (81-99); Nucleated Red Blood Cells % 0 %; Platelet Count 99 K/mm3 (142-424); Red Blood Count 3.88 M/mm3 (4.20-5.40); Red Cell Distribution Width-SD 55.2 fL; White Blood Count 2.5 K/mm3 (4.8-10.8)
[2024-11-20 16:05] LABS: RBC Morphology Normal; Total Cells Counted 100
== END 2024-11-20 23:59 | disposition home or self-care (01) ==
LOC: LAB 14:48
PROVIDERS: PCP Family Medicine; Visit Provider Internal Medicine Medical Oncology
DX: C92.10 Chronic myeloid leukemia, BCR/ABL-positive, not having achieved remission (principal)
CPT/HCPCS: 36415; 85007; 85025